=== PATIENT | female | born 1965 ===

== ENCOUNTER 2020-03-16 14:43 | Emergency (ER) | payer MEDICAID, SELFPAY ==
--- NOTE | 2020-03-16 14:53 | CT_ITS ---
EXAMINATION: CT HEAD WITHOUT CONTRAST CLINICAL INFORMATION: Headache status-post fall. COMPARISON: CT brain dated 03/19/2019. TECHNIQUE: Contiguous axial imaging was performed from the skull base to vertex without intravenous administration of contrast. Multiplanar reformatted images are submitted. This CT examination was performed using dose optimization techniques as appropriate, variously including the following: *Automated exposure control *Adjustment of mA and/or kV according to patient size (this includes techniques or standardized protocols for targeted exams where dose is matched to indication/reason for exam; i.e. extremities or head) *Use of iterative reconstruction technique DLP: 1024 mGy-cm FINDINGS: There is no evidence of acute intracranial hemorrhage or territorial infarction. No abnormal mass effect or midline shift is seen. Mill[place] to white matter differentiation is well preserved. No extra-axial fluid collections are identified. The ventricles are normal in size. There is no abnormal attenuation within the brain parenchyma. There are atherosclerotic calcifications of the skull base vasculature. The osseous structures and soft tissues are normal. The mastoid air cells and visualized portions of the paranasal sinuses are well aerated. CT/CT head/brain wo con IMPRESSION: No acute intracranial pathology.
--- NOTE | 2020-03-16 14:53 | CT_ITS ---
EXAMINATION: CT CERVICAL SPINE WITHOUT CONTRAST CLINICAL INFORMATION: Status post fall. COMPARISON: None TECHNIQUE: Axial 3 mm thin and reformatted 2 mm thin sagittal and coronal images of cervical spine were obtained without contrast. This CT examination was performed using dose optimization techniques as appropriate, variously including the following: *Automated exposure control *Adjustment of mA and/or kV according to patient size (this includes techniques or standardized protocols for targeted exams where dose is matched to indication/reason for exam; i.e. extremities or head) *Use of iterative reconstruction technique DLP: 1024 mGy-cm FINDINGS: There is normal cervical lordosis. The vertebral heights, alignment and disc heights are normal. There is no visible acute fracture, dislocation or lytic process. The craniovertebral junction and the C1-C2 alignment is normal. There is no visible acute fracture, dislocation or subluxation seen. The prevertebral, paravertebral and parapharyngeal soft tissues are normal. There is widely patent. The left thyroid lobe is enlarged and extends inferiorly. The submandibular and parotid glands are not well visualized. Visualized intracranial brain parenchyma is unremarkable. The lung apices are clear. CT/CT cervical spine wo con IMPRESSION: No acute fracture, dislocation or subluxation seen.
--- NOTE | 2020-03-16 14:53 | XR_ITS ---
EXAMINATION: CHEST AND LEFT RIB X-RAYS CLINICAL INFORMATION: Fall. Pain. COMPARISON: Previous chest x-ray February 2019 TECHNIQUE: One view of the chest 5 views of the left ribs FINDINGS: Chest: The cardiac and mediastinal contours are normal. The lungs are clear. There is no pleural effusion or pneumothorax. There are degenerative changes of the spine. Left RIBS: No rib fracture is seen. There is a soft tissue calcification adjacent to the greater tuberosity. XR/XR ribs LT min 3V w CXR1V IMPRESSION: No evidence for acute disease in the chest. No rib fracture seen.
--- NOTE | 2020-03-16 14:53 | XR_ITS ---
EXAMINATION: CHEST AND LEFT RIB X-RAYS CLINICAL INFORMATION: Fall. Pain. COMPARISON: Previous chest x-ray February 2019 TECHNIQUE: One view of the chest 5 views of the left ribs FINDINGS: Chest: The cardiac and mediastinal contours are normal. The lungs are clear. There is no pleural effusion or pneumothorax. There are degenerative changes of the spine. Left RIBS: No rib fracture is seen. There is a soft tissue calcification adjacent to the greater tuberosity. XR/XR chest 1V IMPRESSION: No evidence for acute disease in the chest. No rib fracture seen.
--- NOTE | 2020-03-16 14:54 | ECG_ITS ---
Test Reason : CHEST PAIN Blood Pressure : / mmHG Vent. Rate : 082 BPM Atrial Rate : 082 BPM P-R Int : 230 ms QRS Dur : 080 ms QT Int : 386 ms P-R-T Axes : 058 007 062 degrees QTc Int : 450 ms Sinus rhythm with 1st degree A-V block Nonspecific ST abnormality Borderline ECG When compared with ECG of 29-AUG-2019 18:27, Nonspecific T wave abnormality no longer evident in Inferior leads Referred By: Miller Silva Electronically Signed By:VIOLETA MUÑIZ MD
[2020-03-16 14:58] VITALS: BP 142/68; PULSE 76; RESP 16; TEMP 35.3; BMI 26.1
[2020-03-16 15:15] VITALS: BP 146/78; PULSE 75; RESP 16; TEMP 36.9; O2SAT 99
--- NOTE | 2020-03-16 15:19 | ED.CHESTPAIN ---
HPI - Chest Pain General Chief Complaint: Chest Pain Stated Complaint: FALL,DIZZY,CP Time Seen by Provider: 03/16/20 16:25 Source: patient Mode of arrival: ambulatory Limitations: no limitations History of Present Illness HPI narrative: patient presents to ED for dizziness and than falling to the the ground on her left side and than having chest pain. Patient denies loss of consciousness. Patient main complaint is left lateral rib chest pain. Patient denies any headache or dizziness. MD complaint: chest pain Related Data Previous Rx's Medication Instructions Recorded naproxen 500 mg PO BID PRN #20 tab 03/16/20 Allergies Allergy/AdvReac Type Severity Reaction Status Date / Time morphine [MORPHINE] Allergy Intermediate ITCHY, RASH Unverified 01/29/20 15:53 Review of Systems Review of Systems: Yes all other systems are reviewed and are negative Constitutional: Constitutional: Reports as per HPI and Reports no additional constitutional complaints Eyes: Eyes: Reports as per HPI and Reports no additional eye complaints ENT: Reports system reviewed and no additional complaints, except as documented and Reports as per HPI Cardiovascular: Cardiovascular: Reports as per HPI, Reports no additional cardiovascular complaints and Reports chest pain Respiratory: Respiratory: Reports as per HPI and Reports no additional respiratory complaints Gastrointestinal: Gastrointestinal: Reports as per HPI and Reports no additional gastrointestinal complaints Musculoskeletal: Musculoskeletal: Reports no additional musculoskeletal complaints and Reports as per HPI Neurologic: Reports system reviewed and no additional complaints, except as documented and Reports as per HPI Psychiatric: Psychiatric: Reports no additional psychiatric complaints and Reports as per HPI PMF Past Medical History Medical History (Updated 03/16/20 @ 21:39 by JONNA Walker) Asthma Depression Diabetes mellitus type 1 Hypertension Myocardial infarction Surgical History (Updated 03/16/20 @ 15:07 by Delon Gonzalez) Hx laparoscopic cholecystectomy Social History Social History Advance Directives: No Advance Directives Information Provided: No Physical Exam Vital Signs: Vital Signs: Vital Signs Temp Pulse Resp BP Pulse Ox 03/16/20 20:00 97.5 F 83 16 169/94 H 97 03/16/20 16:00 97.6 F 82 19 177/90 H 97 03/16/20 15:15 98.4 F 75 16 146/78 H 99 03/16/20 14:58 95.5 F L 76 16 142/68 H Body Mass Index 26.1 Const: General: cooperative, healthy appearing, comfortable, no acute distress, well developed, alert and awake Orientation/consciousness: patient oriented x3 HENMT: Head: Yes normal to inspection, Yes No palpable skull fracture present, Yes normocephalic, Yes atraumatic, No abrasion, No Acrocyanosis present, No Hernandez's sign, No contusion, No cranial bruits, No hematoma, No laceration, No occipital foramen tenderness, No palpable skull fracture, No raccoon eyes, No scalp lesion, No scalp tenderness and No Temporal artery tenderness present Eyes: General: appearance normal, both eyes and all related structures Visual Messina: normal visual messina by confrontation Neck: Neck: Yes normal visual inspection, Yes full ROM, Yes no lymphadenopathy, Yes no meningeal signs, No positive Brudzinski's sign, No positive Kernig's sign and No tender Chest: Chest palpation & inspection: normal inspection of the chest and localized rib tenderness with anteroposterior compression ( Left lateral rib pain) Resp: Effort & Inspection: normal respiratory effort and able to speak in complete sentences Cardio: Jugular venous distension: no JVD Heart sounds: S1 normal heart sound present and S2 normal heart sound present GI: Inspection: Yes normal to inspection and No abdominal wall ecchymosis Palpation (GI): Soft to palpation, not firm, nontender, no guarding and not rigid : General: No CVA tenderness and Yes no CVA tenderness Back/Spine/Pelvis: Back: no CVA tenderness, No CVA tenderness and back tenderness (lumbar back tenderness) Skin: General skin exam: no rashes or lesions noted Neuro: General: patient oriented x3, gait normal, no meningeal signs and CN's II-XI intact bilaterally Cranial nerves: Yes CN's II-XII intact bilaterally Course Course Course Narrative: patient will have head CT, C-spine, chest x-ray to rule out any traumatic Injury. Patient have EKG and troponin to rule out any [place] due to history of having a heart attack. Patient also states she felt dizzy and then fell. Reevaluation(s) Reevaluation #1: patient initial troponin came back positive. D-dimer was positive. Patient still complaining of left lateral rib pain on palpation. Chest x-ray negative for any fracture. rib x-ray negative for any fractures. EKG is normal. Patient will be sent for chest CT to rule out PE. Patient also have 2nd troponin. Head CT, C-spine also came back normal. Time: 16:22 Reevaluation #2: lumbar x-ray negative for any fractures. Chest CT are negative for PE. Awaiting for 2nd troponin result. Time: 21:00 Reevaluation #3: 2nd troponin came back less than initial value. as per high sensitivity troponin algorhythm with medical center this rules out myocardial infarction. Patient presents now walking around the ED with walker which is her baseline and feels better. Patient will be discharged. patient given kaxyleate for mild hyperkalemia. kidney function is normal Time: 21:37 MDM - Chest Pain MDM Narrative Medical decision making narrative: chest wall contusion. Fall Lab Data Result diagrams: 03/16/20 16:22 03/16/20 16:22 Labs: Lab Results 03/16/20 03/16/20 03/16/20 Range/Units 16:22 16:22 16:22 WBC 9.8 (4.8-10.8) X10*3/uL RBC 4.79 (4.20-5.50) X10*6/uL Hgb 13.0 (12.0-16.0) g/dl Hct 40.2 (37-47) % MCV 83.9 (80-98) fL MCH 27.1 (27.0-33.0) pg MCHC 32.3 (31.0-35.0) g/dl RDW 12.2 (11.0-16.0) % Plt Count 311 (160-400) X10*3/uL MPV 10.7 (9.4-12.3) fL Immature Gran % (Auto) 0.4 (0.0-0.4) % Neut % (Auto) 72.5 (45-73) % Lymph % (Auto) 21.5 (20-40) % [place] % (Auto) 4.2 (2-11) % Eos % (Auto) 1.1 (0-4) % Baso % (Auto) 0.3 (0-2) % Lymph # (Auto) 2.1 (1.2-4.9) X10*3/uL [place] # (Auto) 0.4 (0.1-1.2) X10*3/uL Eos # (Auto) 0.1 (0.0-0.4) X10*3/uL Baso # (Auto) 0.0 (0.0-0.2) X10*3/uL Abs Immat Gran (auto) 0.04 H (0.00-0.03) X10*3/uL Absolute Neuts (auto) 7.1 (2.0-8.3) X10*3/uL Absolute Nucleated RBC 0.000 (0.0-0.012) X10*3/uL Nucleated RBC % (auto) 0.0 (0.0-0.2) /100WBC PT 12.9 (10.8-13.0) SEC INR 1.1 (0.9-1.1) APTT 25.8 (24.1-38.0) SEC D-Dimer 808 NG/ML Sodium (135-145) mmol/L Potassium (3.3-5.1) mmol/l Chloride (96-108) mmol/L Carbon Dioxide (22-29) mmol/L Anion Gap (12-20) BUN (9-16) mg/dL Creatinine (0.5-1.4) mg/dL Estim Creat Clear Calc Estimated GFR Random Glucose (60-115) mg/dL Calcium (8.4-10.2) mg/dL Total Bilirubin (0.0-1.0) mg/dL AST (5-31) U/L ALT (0-31) U/L Alkaline Phosphatase (39-117) U/L Troponin I High Sens 128.7 H (<3.5-17.0) ng/L Total Protein (6.5-8.0) g/dL Albumin (3.5-5.0) g/dL 03/16/20 03/16/20 Range/Units 16:22 20:34 WBC (4.8-10.8) X10*3/uL RBC (4.20-5.50) X10*6/uL Hgb (12.0-16.0) g/dl Hct (37-47) % MCV (80-98) fL MCH (27.0-33.0) pg MCHC (31.0-35.0) g/dl RDW (11.0-16.0) % Plt Count (160-400) X10*3/uL MPV (9.4-12.3) fL Immature Gran % (Auto) (0.0-0.4) % Neut % (Auto) (45-73) % Lymph % (Auto) (20-40) % [place] % (Auto) (2-11) % Eos % (Auto) (0-4) % Baso % (Auto) (0-2) % Lymph # (Auto) (1.2-4.9) X10*3/uL [place] # (Auto) (0.1-1.2) X10*3/uL Eos # (Auto) (0.0-0.4) X10*3/uL Baso # (Auto) (0.0-0.2) X10*3/uL Abs Immat Gran (auto) (0.00-0.03) X10*3/uL Absolute Neuts (auto) (2.0-8.3) X10*3/uL Absolute Nucleated RBC (0.0-0.012) X10*3/uL Nucleated RBC % (auto) (0.0-0.2) /100WBC PT (10.8-13.0) SEC INR (0.9-1.1) APTT (24.1-38.0) SEC D-Dimer NG/ML Sodium 135 (135-145) mmol/L Potassium 5.4 H (3.3-5.1) mmol/l Chloride 99 (96-108) mmol/L Carbon Dioxide 27 (22-29) mmol/L Anion Gap 14 (12-20) BUN 10 (9-16) mg/dL Creatinine 0.83 (0.5-1.4) mg/dL Estim Creat Clear Calc 74.7 Estimated GFR > 60 Random Glucose 351 H* (60-115) mg/dL Calcium 9.5 (8.4-10.2) mg/dL Total Bilirubin 1.4 H (0.0-1.0) mg/dL AST 15 (5-31) U/L ALT 19 (0-31) U/L Alkaline Phosphatase 87 (39-117) U/L Troponin I High Sens 111.5 H (<3.5-17.0) ng/L Total Protein 7.2 (6.5-8.0) g/dL Albumin 4.0 (3.5-5.0) g/dL ECG Data ECG #1: Interpretation: sinus rhythm with first-degree AV block. Ventricular rate 82. NH interval 230. QRS 80. negative STEMI Discharge Plan Discharge Clinical Impression: Chest wall contusion Patient Disposition: Home, Self-Care Instructions: Chest Pain (ED), Contusion in Adults (ED) Additional Instructions: return to the ED for any chest pain, shortness of breath, vomiting blood, coughing up blood, rectal bleeding, dysuria, hematuria, flank pain, or any other concerning symptoms. Prescriptions: New naproxen 500 mg tablet 500 mg PO BID PRN (Reason: pain) Qty: 20 RF: 0 Referrals: Dallas Butler MD [Primary Care Provider] - 2 days (Chest wall contusion after fall. Normal EKG. Troponins were negative. Chest CTA negative for PE. ) Print Language: [place] Leonean
[2020-03-16 16:00] VITALS: BP 177/90; PULSE 82; RESP 19; TEMP 36.4; O2SAT 97
[2020-03-16 16:41] LABS: Basophils Percent Auto 0.3 % (0-2); Eosinophils Absolute Auto 0.1 X10*3/uL (0.0-0.4); Eosinophils Percent Auto 1.1 % (0-4); Hematocrit 40.2 % (37-47); Imm Gran Abs Auto 0.04 X10*3/uL (0.00-0.03); Imm Gran Pct Auto 0.4 % (0.0-0.4); Lymphocytes Absolute Auto 2.1 X10*3/uL (1.2-4.9); Lymphocytes Percent Auto 21.5 % (20-40); MANUAL DIFF FLAG NO; Mean Corpuscular HGB Conc 32.3 g/dl (31.0-35.0); Mean Corpuscular Hemoglobin 27.1 pg (27.0-33.0); Mean Corpuscular Volume 83.9 fL (80-98); Mean Platelet Volume 10.7 fL (9.4-12.3); Monocytes Absolute Auto 0.4 X10*3/uL (0.1-1.2); Monocytes Percent Auto 4.2 % (2-11); Neutrophils Absolute Auto 7.1 X10*3/uL (2.0-8.3); Neutrophils Percent Auto 72.5 % (45-73); Platelet Count 311 X10*3/uL (160-400); Red Blood Count 4.79 X10*6/uL (4.20-5.50); Red Cell Distribution Width 12.2 % (11.0-16.0); White Blood Count 9.8 X10*3/uL (4.8-10.8)
[2020-03-16 16:50] LABS: INTERNATIONAL NORM RATIO 1.1 (0.9-1.1); Prothrombin Time 12.9 SEC (10.8-13.0)
[2020-03-16 16:53] LABS: D Dimer 808 NG/ML; Partial Thromboplastin Time 25.8 SEC (24.1-38.0)
[2020-03-16 17:29] LABS: Alanine Aminotransferase 19 U/L (0-31); Alkaline Phosphatase 87 U/L (39-117); Anion Gap 14 (12-20); Aspartate Amino Transferase 15 U/L (5-31); Bilirubin Total 1.4 mg/dL (0.0-1.0); Blood Urea Nitrogen 10 mg/dL (9-16); Calcium 9.5 mg/dL (8.4-10.2); Carbon Dioxide 27 mmol/L (22-29); Chloride 99 mmol/L (96-108); Creatinine Clr Calc Pharmacy 74.7; Estimated Glomerular Filt Rate > 60; Glucose Random 351 mg/dL (60-115); Potassium 5.4 mmol/l (3.3-5.1); Sodium 135 mmol/L (135-145); Total Protein 7.2 g/dL (6.5-8.0)
[2020-03-16 17:30] LABS: Troponin-I High Sensitivity 128.7 ng/L (<3.5-17.0)
--- NOTE | 2020-03-16 17:38 | CT_ITS ---
EXAMINATION: CT ANGIOGRAM OF THE CHEST WITH AND WITHOUT CONTRAST (CT PULMONARY ANGIOGRAM FOR PE) CLINICAL INFORMATION: Reason for Exam dizzy, chest pain, than fall. PE? COMPARISON: Chest x-ray 03/16/2020 and CTA chest 03/06/2019 TECHNIQUE: Prior to contrast administration, noncontrast localization images were obtained. Subsequently, multidetector volumetric imaging was performed from the thoracic inlet to below the diaphragms following the administration of 65 mLOmnipaque 350 intravenous contrast. No contrast reaction reported Sagittal, coronal, and MIP oblique sagittal reformatted images were obtained on the CT workstation, uploaded to PACS, and reviewed. This CT examination was performed using dose optimization techniques as appropriate, variously including the following: *Automated exposure control *Adjustment of mA and/or kV according to patient size (this includes techniques or standardized protocols for targeted exams where dose is matched to indication/reason for exam; i.e. extremities or head) *Use of iterative reconstruction technique Total exam dose-length product 397 mGy-cm FINDINGS: The heart is normal in size. There is no pericardial effusion. No pulmonary arterial filling defect to suggest pulmonary embolus. Nonaneurysmal thoracic aorta. No gross mediastinal lymphadenopathy. Central airways are patent. Lungs are adequately aerated. There is mild dependent atelectasis bilaterally. Subtle diffuse groundglass opacities are nonspecific but most suggestive of atelectasis/incomplete inspiration. There is no lobar consolidation. No pleural effusion or pneumothorax. No suspicious pulmonary nodules visualized. Visualized portion of the upper abdomen again demonstrate dilatation of the extrahepatic common bile duct. Mild diffuse degenerative changes of the spine. CT/CT angio chest PE protocol IMPRESSION: -No pulmonary arterial filling defects to suggest pulmonary embolus. -No lobar consolidation, pleural effusion or pneumothorax.
--- NOTE | 2020-03-16 18:50 | XR_ITS ---
EXAMINATION: PELVIS AND LUMBAR SPINE CLINICAL INFORMATION: Back pain after fall COMPARISON: Lumbar spine 09/26/2018 TECHNIQUE: Single view pelvis, 3 views lumbosacral spine FINDINGS: Lumbar spine shows no evidence of an acute fracture. Both renal collecting systems and both ureters are opacified and appear normal. Surgical clips are present in the gallbladder fossa. No pelvic fracture is seen. Degenerative changes are present in both hips. Contrast is in the bladder and in nondilated right ureter is seen. XR/XR pelvis 1-2V IMPRESSION: No evidence of traumatic injury.
[2020-03-16] MEDS: Ketorolac Tromethamine 30 MG/ML VIAL IVPUSH (18:52)
[2020-03-16] MEDS: iohexoL 350 MG/ML 100 ML INFUS..BTL IV (19:59)
[2020-03-16 20:00] VITALS: BP 169/94; PULSE 83; RESP 16; TEMP 36.4; O2SAT 97
--- NOTE | 2020-03-16 20:06 | XR_ITS ---
EXAMINATION: PELVIS AND LUMBAR SPINE CLINICAL INFORMATION: Back pain after fall COMPARISON: Lumbar spine 09/26/2018 TECHNIQUE: Single view pelvis, 3 views lumbosacral spine FINDINGS: Lumbar spine shows no evidence of an acute fracture. Both renal collecting systems and both ureters are opacified and appear normal. Surgical clips are present in the gallbladder fossa. No pelvic fracture is seen. Degenerative changes are present in both hips. Contrast is in the bladder and in nondilated right ureter is seen. XR/XR lumbar spine 2-3V IMPRESSION: No evidence of traumatic injury.
[2020-03-16 21:14] LABS: Troponin-I High Sensitivity 111.5 ng/L (<3.5-17.0)
[2020-03-16 22:00] VITALS: BP 171/92; PULSE 83; RESP 16; TEMP 36.4; O2SAT 95
[2020-03-16] MEDS: Sodium Polystyrene Sulfon/Sorb 15 GM/60 ML ORAL.SUSP 30 GM PO (22:11)
== END 2020-03-16 22:42 | disposition home or self-care (01) ==
PROVIDERS: Physician Assistant; Emergency Provider Internal Medicine; PCP Internal Medicine
DX: S20.213A Contusion of bilateral front wall of thorax, initial encounter (principal); R07.9 Chest pain, unspecified; M54.2 Cervicalgia; R42 Dizziness and giddiness; I10 Essential (primary) hypertension; G44.309 Post-traumatic headache, unspecified, not intractable; W01.0XXA Fall on same level from slipping, tripping and stumbling without subsequent striking against object, initial encounter; Y93.9 Activity, unspecified; Y92.9 Unspecified place or not applicable; Y99.9 Unspecified external cause status; Z79.899 Other long term (current) drug therapy
CPT/HCPCS: 36415; 70450; 71045; 71101; 71275; 72100; 72125; 72170; 80053; 84484; 85025; 85379; 85610; 85730; 93005; 96374; 99283; 99284; J1885; Q9967

== ENCOUNTER 2020-05-17 09:48 | Outpatient (REF) | payer MEDICAID, SELFPAY | END 2020-05-17 09:49 | disposition home or self-care (01) | LOC: HO.LAB 09:48 | PROVIDERS: Visit Provider Internal Medicine | DX: Z20.822 Contact with and (suspected) exposure to COVID-19 (principal) | CPT/HCPCS: 36415; C9803; U0003 ==

== ENCOUNTER 2020-07-06 14:00 | Outpatient (RCR) | payer MEDICAID, SELFPAY ==
[2020-06-07 15:09] VITALS: BP 139/65; PULSE 78
== END 2020-08-12 15:02 | disposition other institution (70) ==
LOC: HO.PT 14:00
PROVIDERS: PCP Internal Medicine; Visit Provider Internal Medicine
DX: M25.511 Pain in right shoulder (principal)
CPT/HCPCS: 97110; 97112; 97140; 97162; 97530

== ENCOUNTER 2020-10-12 12:36 | Emergency (ER) | payer MEDICAID, SELFPAY ==
--- NOTE | ~2020-10-12 | CT_ITS ---
EXAMINATION: CT ABDOMEN AND PELVIS WITHOUT CONTRAST CLINICAL INFORMATION: Left-sided flank pain and abdominal pain status post fall COMPARISON: CT abdomen pelvis 07/03/2018 TECHNIQUE: Multidetector volumetric imaging was performed from the superior aspect of the liver through the pubic symphysis. Sagittal and coronal reformatted images were obtained on the technologist's workstation. This CT examination was performed using dose optimization techniques as appropriate, variously including the following: *Automated exposure control *Adjustment of mA and/or kV according to patient size (this includes techniques or standardized protocols for targeted exams where dose is matched to indication/reason for exam; i.e. extremities or head) *Use of iterative reconstruction technique DLP: 5:15 mGy-cm FINDINGS: LUNG BASES: The visualized lung bases are unremarkable. LIVER, GALLBLADDER, AND BILIARY TREE: The liver is normal in size, shape, and attenuation. No focal hepatic lesion or intrahepatic biliary ductal dilatation is present. The CBD is again noted to be dilated measuring about 1.5 cm. Status post cholecystectomy. PANCREAS: Unremarkable. SPLEEN: Unremarkable. ADRENAL GLANDS: Unremarkable. KIDNEYS AND URETERS: The kidneys are normal in size, shape, and attenuation. No hydronephrosis, hydroureter, or calculi seen. No perinephric stranding. BLADDER: Unremarkable. GASTROINTESTINAL TRACT: The small and large bowel are unremarkable. The appendix is unremarkable. ABDOMINAL WALL: No significant hernia is appreciated. LYMPH NODES: Normal. VASCULAR: Unremarkable. PELVIC VISCERA: Unremarkable. OSSEOUS STRUCTURES: Unremarkable. CT/CT abdomen pelvis wo con IMPRESSION: A cause for the patient's acute left-sided flank pain has not been found and no evidence of acute traumatic injury status post fall is seen.
--- NOTE | ~2020-10-12 | XR_ITS ---
EXAMINATION: XR KNEE, LEFT CLINICAL INFORMATION: Status post fall with left knee pain COMPARISON: None TECHNIQUE: Four views of the left knee. FINDINGS: Bones and soft tissues are normal. No fracture or joint effusion. Alignment is anatomic. Joint spaces are well maintained. No abnormal soft tissue calcification. XR/XR knee LT 4V IMPRESSION: Unremarkable left knee.
--- NOTE | ~2020-10-12 | XR_ITS ---
EXAMINATION: XR RIBS, LEFT CLINICAL INFORMATION: Pain. Fall. COMPARISON: Previous chest and left rib x-rays and chest CTA March 2020 TECHNIQUE: 3 views of the left ribs and one view of the chest were obtained. FINDINGS: The cardiac and mediastinal contours are stable. The lungs are clear. There is no pleural effusion or pneumothorax. There are old left posterior fifth sixth and seventh rib fractures. No acute rib fracture is seen. There are degenerative changes of the spine. XR/XR ribs LT min 3V w CXR1V IMPRESSION: No evidence for acute disease in the chest. No acute rib fracture seen.
[2020-10-12 13:28] VITALS: BP 154/48; PULSE 76; RESP 16; TEMP 36.7; O2SAT 96; BMI 28.5
--- NOTE | 2020-10-12 14:29 | ECG_ITS ---
Test Reason : FALL Blood Pressure : / mmHG Vent. Rate : 068 BPM Atrial Rate : 068 BPM P-R Int : 246 ms QRS Dur : 078 ms QT Int : 400 ms P-R-T Axes : 064 010 048 degrees QTc Int : 425 ms Sinus rhythm with 1st degree A-V block Otherwise normal ECG When compared with ECG of 16-MAR-2020 15:46, No significant change was found Referred By: Cristina Cason Electronically Signed By:Fabio Andrade
--- NOTE | 2020-10-12 14:56 | ED.FALL ---
HPI - Fall General Chief Complaint: Fall Stated Complaint: fell Time Seen by Provider: 10/12/20 14:04 Source: patient and family Mode of arrival: wheelchair Limitations: no limitations History of Present Illness HPI Narrative: 55 y/o female presents to the ED with dizziness and 2 falls today. She states the 1st fall her knees gave out and the 2nd fall was preceded by dizziness and tunnel vision. She hit her forehead on the floor and hit her left ribs and left side as well. She reports pain in her left ribs and abdomen. She has mild residual dizziness. She has a similar presentation in Mar 2020 with fall and dizziness. She had a negative CTA at that time. MD complaint: fall Onset (ago): hour(s) Fall from: standing Fall witnessed: yes, by family Place fall occurred: home Loss of consciousness: none Related Data Previous Rx's Medication Instructions Recorded naproxen 500 mg PO BID PRN #20 tab 03/16/20 Allergies Allergy/AdvReac Type Severity Reaction Status Date / Time morphine [MORPHINE] Allergy Intermediate ITCHY, RASH Verified 10/12/20 13:28 [facility], [facility] Past Medical History Medical History (Updated 10/12/20 @ 18:01 by JONNA Gordon) Asthma Depression Diabetes mellitus type 1 Hypertension Myocardial infarction Surgical History (Updated 03/16/20 @ 15:07 by Delon Gonzalez) Hx laparoscopic cholecystectomy Social History Social History Advance Directives: No Advance Directives Information Provided: Yes Physical Exam Vital Signs: Vital Signs: Last Vital Signs Temp 98.0 F 10/12/20 13:28 Pulse 72 10/12/20 18:34 Resp 15 10/12/20 18:34 BP 155/72 H 10/12/20 15:54 Pulse Ox 96 10/12/20 13:28 Body Mass Index 28.5 Course Course Course Narrative: 55 y/o female presenting with left flank pain and abdominal pain s/p fall x2 today. History of several falls in the past, is supposed to be walking with a walker but it is broken. Doubt intraabdominal injury however given tenderness on exam will get CT scan. Lab workup ordered. Orthostatics are negative. Reevaluation(s) Reevaluation #1: XR negative for rib fractures or PTX. Troponin 40 (was 120 last visit). No chest pain or SOB. Will repeat in 3 hours. Patient is sleeping comfortably between care. Reevaluation #2: Repeat troponin trended down. Comfortable with d/c home. We discussed fall prevention methods and safety at home, sig other is comfortable taking her home. She was encouraged to use her walker and f/u with PCP. Stable for d/c. MDM - Fall Lab Data Result diagrams: 10/12/20 15:04 10/12/20 15:49 Labs: Lab Results 10/12/20 10/12/20 10/12/20 Range/Units 15:04 15:05 15:05 WBC 7.2 (4.8-10.8) X10*3/uL RBC 4.76 (4.20-5.50) X10*6/uL Hgb 12.9 (12.0-16.0) g/dl Hct 39.2 (37-47) % MCV 82.4 (80-98) fL MCH 27.1 (27.0-33.0) pg MCHC 32.9 (31.0-35.0) g/dl RDW 12.4 (11.0-16.0) % Plt Count 329 (160-400) X10*3/uL MPV 10.4 (9.4-12.3) fL Immature Gran % (Auto) 0.1 (0.0-0.4) % Neut % (Auto) 52.5 (45-73) % Lymph % (Auto) 39.3 (20-40) % [place] % (Auto) 5.8 (2-11) % Eos % (Auto) 1.9 (0-4) % Baso % (Auto) 0.4 (0-2) % Lymph # (Auto) 2.8 (1.2-4.9) X10*3/uL [place] # (Auto) 0.4 (0.1-1.2) X10*3/uL Eos # (Auto) 0.1 (0.0-0.4) X10*3/uL Baso # (Auto) 0.0 (0.0-0.2) X10*3/uL Abs Immat Gran (auto) 0.01 (0.00-0.03) X10*3/uL Absolute Neuts (auto) 3.8 (2.0-8.3) X10*3/uL Absolute Nucleated RBC 0.000 (0.0-0.012) X10*3/uL Nucleated RBC % (auto) 0.0 (0.0-0.2) /100WBC Hold Blue Top SEE NOTE Sodium (135-145) mmol/L Potassium (3.3-5.1) mmol/L Chloride (96-108) mmol/L Carbon Dioxide (22-29) mmol/L Anion Gap (12-20) BUN (9-16) mg/dL Creatinine (0.5-1.4) mg/dL Estim Creat Clear Calc Estimated GFR Random Glucose (60-115) mg/dL Calcium (8.4-10.2) mg/dL Magnesium (1.6-2.6) mg/dL Total Bilirubin (0.0-1.0) mg/dL Direct Bilirubin (0.0-0.5) mg/dL AST (5-31) U/L ALT (0-31) U/L Alkaline Phosphatase (39-117) U/L Troponin I High Sens 40.5 H* (<3.5-17.0) ng/L Total Protein (6.5-8.0) g/dL Albumin (3.5-5.0) g/dL Urine Color Urine Appearance Urine pH (5.0-8.0) Ur Specific [place] (1.005-1.025) Urine Protein (NEG-TRACE) MG/DL Urine Glucose (UA) (NEG) MG/DL Urine Ketones (NEG) MG/DL Urine Blood (NEG) Urine Nitrite (NEG) Ur Leukocyte Esterase (NEG) Urine RBC (0) /HPF Urine WBC (0-4) /HPF Ur Squamous Epith Cells /LPF Urine Bacteria /LPF 10/12/20 10/12/20 10/12/20 Range/Units 15:06 15:49 18:12 WBC (4.8-10.8) X10*3/uL RBC (4.20-5.50) X10*6/uL Hgb (12.0-16.0) g/dl Hct (37-47) % MCV (80-98) fL MCH (27.0-33.0) pg MCHC (31.0-35.0) g/dl RDW (11.0-16.0) % Plt Count (160-400) X10*3/uL MPV (9.4-12.3) fL Immature Gran % (Auto) (0.0-0.4) % Neut % (Auto) (45-73) % Lymph % (Auto) (20-40) % [place] % (Auto) (2-11) % Eos % (Auto) (0-4) % Baso % (Auto) (0-2) % Lymph # (Auto) (1.2-4.9) X10*3/uL [place] # (Auto) (0.1-1.2) X10*3/uL Eos # (Auto) (0.0-0.4) X10*3/uL Baso # (Auto) (0.0-0.2) X10*3/uL Abs Immat Gran (auto) (0.00-0.03) X10*3/uL Absolute Neuts (auto) (2.0-8.3) X10*3/uL Absolute Nucleated RBC (0.0-0.012) X10*3/uL Nucleated RBC % (auto) (0.0-0.2) /100WBC Hold Blue Top Sodium 134 L (135-145) mmol/L Potassium 4.7 (3.3-5.1) mmol/L Chloride 100 (96-108) mmol/L Carbon Dioxide 23 (22-29) mmol/L Anion Gap 16 (12-20) BUN 11 (9-16) mg/dL Creatinine 0.68 (0.5-1.4) mg/dL Estim Creat Clear Calc 87.1 Estimated GFR > 60 Random Glucose 250 H (60-115) mg/dL Calcium 9.9 (8.4-10.2) mg/dL Magnesium 1.7 (1.6-2.6) mg/dL Total Bilirubin 1.3 H (0.0-1.0) mg/dL Direct Bilirubin 0.4 (0.0-0.5) mg/dL AST 13 (5-31) U/L ALT 18 (0-31) U/L Alkaline Phosphatase 85 (39-117) U/L Troponin I High Sens 39.8 H* (<3.5-17.0) ng/L Total Protein 7.1 (6.5-8.0) g/dL Albumin 4.0 (3.5-5.0) g/dL Urine Color YELLOW Urine Appearance CLEAR Urine pH 5.5 (5.0-8.0) Ur Specific [place] <= 1.005 (1.005-1.025) Urine Protein NEG (NEG-TRACE) MG/DL Urine Glucose (UA) >=1000 H (NEG) MG/DL Urine Ketones NEG (NEG) MG/DL Urine Blood NEG (NEG) Urine Nitrite NEG (NEG) Ur Leukocyte Esterase NEG (NEG) Urine RBC 0 (0) /HPF Urine WBC 0 (0-4) /HPF Ur Squamous Epith Cells TRACE /LPF Urine Bacteria NONE /LPF Critical Care Time Critical Care Time Critical Care Time: No Discharge Plan Discharge Clinical Impression: Fall Qualifiers: Encounter type: initial encounter Qualified Code(s): W19.XXXA - Unspecified fall, initial encounter Contusion Qualifiers: Encounter type: initial encounter Contusion area: abdominal wall Qualified Code(s): S30.1XXA - Contusion of abdominal wall, initial encounter Patient Disposition: Home, Self-Care Instructions: Fall Prevention (ED) Additional Instructions: Your lab work up and CT scan was normal today. Recommend Motrin and/or Tylenol as needed for pain. WALK WITH YOUR WALKER to help prevent falls. Follow up with your doctor next week. Prescriptions: No Action naproxen 500 mg tablet 500 mg PO BID PRN (Reason: pain) Qty: 20 RF: 0
[2020-10-12 15:11] VITALS: BP 147/67; PULSE 70
[2020-10-12 15:15] LABS: MANUAL DIFF FLAG NO
[2020-10-12 15:16] VITALS: BP 155/64; PULSE 73
[2020-10-12 15:16] LABS: Glucose Urine UA >=1000 MG/DL (NEG); Leukocyte Esterase Urine NEG (NEG); Nitrite Urine NEG (NEG); PH 5.5 (5.0-8.0); Specific Gravity - Urine <= 1.005 (1.005-1.025); Urine Blood NEG (NEG); Urine Ketones NEG (NEG); Urine Protein NEG (NEG-TRACE)
[2020-10-12 15:17] LABS: Basophils Percent Auto 0.4 % (0-2); Eosinophils Absolute Auto 0.1 X10*3/uL (0.0-0.4); Eosinophils Percent Auto 1.9 % (0-4); Hematocrit 39.2 % (37-47); Hemoglobin 12.9 g/dl (12.0-16.0); Imm Gran Abs Auto 0.01 X10*3/uL (0.00-0.03); Imm Gran Pct Auto 0.1 % (0.0-0.4); Lymphocytes Absolute Auto 2.8 X10*3/uL (1.2-4.9); Lymphocytes Percent Auto 39.3 % (20-40); Mean Corpuscular HGB Conc 32.9 g/dl (31.0-35.0); Mean Corpuscular Hemoglobin 27.1 pg (27.0-33.0); Mean Corpuscular Volume 82.4 fL (80-98); Mean Platelet Volume 10.4 fL (9.4-12.3); Monocytes Absolute Auto 0.4 X10*3/uL (0.1-1.2); Monocytes Percent Auto 5.8 % (2-11); Neutrophils Absolute Auto 3.8 X10*3/uL (2.0-8.3); Neutrophils Percent Auto 52.5 % (45-73); Platelet Count 329 X10*3/uL (160-400); Red Blood Count 4.76 X10*6/uL (4.20-5.50); Red Cell Distribution Width 12.4 % (11.0-16.0); White Blood Count 7.2 X10*3/uL (4.8-10.8)
[2020-10-12 15:17] LABS: Appearance Urine CLEAR; Color Urine YELLOW
[2020-10-12 15:18] VITALS: BP 141/75; PULSE 69
[2020-10-12 15:24] LABS: RBC Urine 0 /HPF (0); Squamous Epithelial Cell Urine TRACE /LPF; WBC Urine 0 /HPF (0-4)
[2020-10-12 15:54] VITALS: BP 155/72; PULSE 77; RESP 16
[2020-10-12 16:00] LABS: Troponin-I High Sensitivity 40.5 ng/L (<3.5-17.0)
[2020-10-12 16:47] LABS: Alanine Aminotransferase 18 U/L (0-31); Alkaline Phosphatase 85 U/L (39-117); Anion Gap 16 (12-20); Aspartate Amino Transferase 13 U/L (5-31); Bilirubin Direct 0.4 mg/dL (0.0-0.5); Bilirubin Total 1.3 mg/dL (0.0-1.0); Blood Urea Nitrogen 11 mg/dL (9-16); Calcium 9.9 mg/dL (8.4-10.2); Carbon Dioxide 23 mmol/L (22-29); Chloride 100 mmol/L (96-108); Creatinine Clr Calc Pharmacy 87.1; Estimated Glomerular Filt Rate > 60; Glucose Random 250 mg/dL (60-115); Magnesium 1.7 mg/dL (1.6-2.6); Potassium 4.7 mmol/L (3.3-5.1); Sodium 134 mmol/L (135-145); Total Protein 7.1 g/dL (6.5-8.0)
[2020-10-12 18:34] VITALS: PULSE 72; RESP 15
[2020-10-12] MEDS: Acetaminophen 325 MG TABLET 975 MG PO (18:45)
[2020-10-12] MEDS: Ketorolac Tromethamine 30 MG/ML VIAL IM (18:46)
[2020-10-12 18:56] LABS: Troponin-I High Sensitivity 39.8 ng/L (<3.5-17.0)
== END 2020-10-12 19:12 | disposition home or self-care (01) ==
PROVIDERS: Physician Assistant; Emergency Provider Emergency Medicine; PCP Internal Medicine
DX: S30.1XXA Contusion of abdominal wall, initial encounter (principal); M25.562 Pain in left knee; R10.9 Unspecified abdominal pain; R42 Dizziness and giddiness; W01.0XXA Fall on same level from slipping, tripping and stumbling without subsequent striking against object, initial encounter; Y93.9 Activity, unspecified; Y92.9 Unspecified place or not applicable; Y99.9 Unspecified external cause status; R07.81 Pleurodynia; Z79.899 Other long term (current) drug therapy
CPT/HCPCS: 36415; 71101; 73564; 74176; 80048; 80076; 81001; 83735; 84484; 85025; 93005; 96372; 99285; J1885

== ENCOUNTER 2020-11-18 13:26 | Outpatient (REF) | payer MEDICAID, SELFPAY ==
--- NOTE | ~2020-11-18 | US_ITS ---
EXAMINATION: US VENOUS ULTRASOUND WITH DOPPLER LOWER EXTREMITY, LEFT CLINICAL INFORMATION: Pain COMPARISON: Previous bilateral lower extremity venous ultrasound January 2018 TECHNIQUE: Ultrasound of the deep veins is performed from the hip to the calf with compression sonography and color and pulse Doppler assessment. Spectral analysis with color-flow imaging is performed. FINDINGS: There is normal venous compression and respiratory variation and augmented flow. The visualized common femoral vein, superficial femoral vein, profunda femoral vein, popliteal vein, and the trifurcation region shows no evidence of deep venous thrombosis. There is no significant popliteal fossa cyst. US/US venous duplex LE LT IMPRESSION: No DVT demonstrated in the left lower extremity.
== END 2020-11-18 13:27 | disposition home or self-care (01) ==
LOC: HO.HMGCX 13:26
PROVIDERS: PCP Internal Medicine; Visit Provider Emergency Medicine
DX: M79.662 Pain in left lower leg (principal); M79.89 Other specified soft tissue disorders
CPT/HCPCS: 93971

== ENCOUNTER 2020-11-24 13:11 | Outpatient (REF) | payer MEDICAID, SELFPAY ==
--- NOTE | ~2020-11-24 | XR_ITS ---
EXAMINATION: XR HIP, LEFT XR KNEE, LEFT XR TIBIA/FIBULA, LEFT XR ANKLE, LEFT XR FOOT, LEFT CLINICAL INFORMATION: Pain. COMPARISON: Left knee radiographs dated 10/12/2020. Pelvic radiograph dated 03/16/2020. Left ankle radiographs dated 09/16/2018. TECHNIQUE: AP and frog-leg lateral views of the left hip. AP, bilateral oblique, and lateral views of the left knee. AP and lateral views of the left tibia/fibula. AP, oblique, and lateral views of the left foot and left ankle. FINDINGS: Left Hip: No acute fracture or dislocation. Mild joint space narrowing with lateral acetabular marginal osteophytes, unchanged. Phleboliths within the pelvis. Stable ossification adjacent to the greater trochanter, which could indicate chronic tendinopathy. Left Knee: No acute fracture or dislocation. No joint space narrowing or marginal osteophytes. No osseous erosion. No abnormal soft tissue calcification. No significant joint effusion. Left Tibia/Fibula: No acute fracture or dislocation. No lytic or blastic osseous lesion. No abnormal soft tissue calcification. Left Ankle: No acute fracture or dislocation. The ankle mortise is maintained. No joint space narrowing or marginal osteophytes. No osseous erosion. No abnormal soft tissue calcification. Left Foot: No acute fracture or dislocation. Mild joint space narrowing with tiny marginal osteophytes at the 1st metatarsophalangeal joint. Tiny plantar calcaneal spur. XR/XR ankle LT 2V IMPRESSION: LEFT HIP: Mild osteophyte arthritis, unchanged. Ossification adjacent to the greater trochanter which is unchanged and could indicate chronic tendinopathy. LEFT KNEE: Unremarkable examination. LEFT TIBIA/FIBULA: Unremarkable examination. LEFT ANKLE: Unremarkable examination. LEFT FOOT: Mild degenerative arthritis at the 1st metatarsophalangeal joint. Tiny plantar calcaneal spur.
--- NOTE | ~2020-11-24 | XR_ITS ---
EXAMINATION: XR HIP, LEFT XR KNEE, LEFT XR TIBIA/FIBULA, LEFT XR ANKLE, LEFT XR FOOT, LEFT CLINICAL INFORMATION: Pain. COMPARISON: Left knee radiographs dated 10/12/2020. Pelvic radiograph dated 03/16/2020. Left ankle radiographs dated 09/16/2018. TECHNIQUE: AP and frog-leg lateral views of the left hip. AP, bilateral oblique, and lateral views of the left knee. AP and lateral views of the left tibia/fibula. AP, oblique, and lateral views of the left foot and left ankle. FINDINGS: Left Hip: No acute fracture or dislocation. Mild joint space narrowing with lateral acetabular marginal osteophytes, unchanged. Phleboliths within the pelvis. Stable ossification adjacent to the greater trochanter, which could indicate chronic tendinopathy. Left Knee: No acute fracture or dislocation. No joint space narrowing or marginal osteophytes. No osseous erosion. No abnormal soft tissue calcification. No significant joint effusion. Left Tibia/Fibula: No acute fracture or dislocation. No lytic or blastic osseous lesion. No abnormal soft tissue calcification. Left Ankle: No acute fracture or dislocation. The ankle mortise is maintained. No joint space narrowing or marginal osteophytes. No osseous erosion. No abnormal soft tissue calcification. Left Foot: No acute fracture or dislocation. Mild joint space narrowing with tiny marginal osteophytes at the 1st metatarsophalangeal joint. Tiny plantar calcaneal spur. XR/XR foot LT min 3V IMPRESSION: LEFT HIP: Mild osteophyte arthritis, unchanged. Ossification adjacent to the greater trochanter which is unchanged and could indicate chronic tendinopathy. LEFT KNEE: Unremarkable examination. LEFT TIBIA/FIBULA: Unremarkable examination. LEFT ANKLE: Unremarkable examination. LEFT FOOT: Mild degenerative arthritis at the 1st metatarsophalangeal joint. Tiny plantar calcaneal spur.
--- NOTE | ~2020-11-24 | XR_ITS ---
EXAMINATION: XR HIP, LEFT XR KNEE, LEFT XR TIBIA/FIBULA, LEFT XR ANKLE, LEFT XR FOOT, LEFT CLINICAL INFORMATION: Pain. COMPARISON: Left knee radiographs dated 10/12/2020. Pelvic radiograph dated 03/16/2020. Left ankle radiographs dated 09/16/2018. TECHNIQUE: AP and frog-leg lateral views of the left hip. AP, bilateral oblique, and lateral views of the left knee. AP and lateral views of the left tibia/fibula. AP, oblique, and lateral views of the left foot and left ankle. FINDINGS: Left Hip: No acute fracture or dislocation. Mild joint space narrowing with lateral acetabular marginal osteophytes, unchanged. Phleboliths within the pelvis. Stable ossification adjacent to the greater trochanter, which could indicate chronic tendinopathy. Left Knee: No acute fracture or dislocation. No joint space narrowing or marginal osteophytes. No osseous erosion. No abnormal soft tissue calcification. No significant joint effusion. Left Tibia/Fibula: No acute fracture or dislocation. No lytic or blastic osseous lesion. No abnormal soft tissue calcification. Left Ankle: No acute fracture or dislocation. The ankle mortise is maintained. No joint space narrowing or marginal osteophytes. No osseous erosion. No abnormal soft tissue calcification. Left Foot: No acute fracture or dislocation. Mild joint space narrowing with tiny marginal osteophytes at the 1st metatarsophalangeal joint. Tiny plantar calcaneal spur. XR/XR tibia fibula LT 2V IMPRESSION: LEFT HIP: Mild osteophyte arthritis, unchanged. Ossification adjacent to the greater trochanter which is unchanged and could indicate chronic tendinopathy. LEFT KNEE: Unremarkable examination. LEFT TIBIA/FIBULA: Unremarkable examination. LEFT ANKLE: Unremarkable examination. LEFT FOOT: Mild degenerative arthritis at the 1st metatarsophalangeal joint. Tiny plantar calcaneal spur.
--- NOTE | ~2020-11-24 | XR_ITS ---
EXAMINATION: XR HIP, LEFT XR KNEE, LEFT XR TIBIA/FIBULA, LEFT XR ANKLE, LEFT XR FOOT, LEFT CLINICAL INFORMATION: Pain. COMPARISON: Left knee radiographs dated 10/12/2020. Pelvic radiograph dated 03/16/2020. Left ankle radiographs dated 09/16/2018. TECHNIQUE: AP and frog-leg lateral views of the left hip. AP, bilateral oblique, and lateral views of the left knee. AP and lateral views of the left tibia/fibula. AP, oblique, and lateral views of the left foot and left ankle. FINDINGS: Left Hip: No acute fracture or dislocation. Mild joint space narrowing with lateral acetabular marginal osteophytes, unchanged. Phleboliths within the pelvis. Stable ossification adjacent to the greater trochanter, which could indicate chronic tendinopathy. Left Knee: No acute fracture or dislocation. No joint space narrowing or marginal osteophytes. No osseous erosion. No abnormal soft tissue calcification. No significant joint effusion. Left Tibia/Fibula: No acute fracture or dislocation. No lytic or blastic osseous lesion. No abnormal soft tissue calcification. Left Ankle: No acute fracture or dislocation. The ankle mortise is maintained. No joint space narrowing or marginal osteophytes. No osseous erosion. No abnormal soft tissue calcification. Left Foot: No acute fracture or dislocation. Mild joint space narrowing with tiny marginal osteophytes at the 1st metatarsophalangeal joint. Tiny plantar calcaneal spur. XR/XR knee LT 4V IMPRESSION: LEFT HIP: Mild osteophyte arthritis, unchanged. Ossification adjacent to the greater trochanter which is unchanged and could indicate chronic tendinopathy. LEFT KNEE: Unremarkable examination. LEFT TIBIA/FIBULA: Unremarkable examination. LEFT ANKLE: Unremarkable examination. LEFT FOOT: Mild degenerative arthritis at the 1st metatarsophalangeal joint. Tiny plantar calcaneal spur.
--- NOTE | ~2020-11-24 | XR_ITS ---
EXAMINATION: XR HIP, LEFT XR KNEE, LEFT XR TIBIA/FIBULA, LEFT XR ANKLE, LEFT XR FOOT, LEFT CLINICAL INFORMATION: Pain. COMPARISON: Left knee radiographs dated 10/12/2020. Pelvic radiograph dated 03/16/2020. Left ankle radiographs dated 09/16/2018. TECHNIQUE: AP and frog-leg lateral views of the left hip. AP, bilateral oblique, and lateral views of the left knee. AP and lateral views of the left tibia/fibula. AP, oblique, and lateral views of the left foot and left ankle. FINDINGS: Left Hip: No acute fracture or dislocation. Mild joint space narrowing with lateral acetabular marginal osteophytes, unchanged. Phleboliths within the pelvis. Stable ossification adjacent to the greater trochanter, which could indicate chronic tendinopathy. Left Knee: No acute fracture or dislocation. No joint space narrowing or marginal osteophytes. No osseous erosion. No abnormal soft tissue calcification. No significant joint effusion. Left Tibia/Fibula: No acute fracture or dislocation. No lytic or blastic osseous lesion. No abnormal soft tissue calcification. Left Ankle: No acute fracture or dislocation. The ankle mortise is maintained. No joint space narrowing or marginal osteophytes. No osseous erosion. No abnormal soft tissue calcification. Left Foot: No acute fracture or dislocation. Mild joint space narrowing with tiny marginal osteophytes at the 1st metatarsophalangeal joint. Tiny plantar calcaneal spur. XR/XR hip LT min 2V IMPRESSION: LEFT HIP: Mild osteophyte arthritis, unchanged. Ossification adjacent to the greater trochanter which is unchanged and could indicate chronic tendinopathy. LEFT KNEE: Unremarkable examination. LEFT TIBIA/FIBULA: Unremarkable examination. LEFT ANKLE: Unremarkable examination. LEFT FOOT: Mild degenerative arthritis at the 1st metatarsophalangeal joint. Tiny plantar calcaneal spur.
== END 2020-11-24 13:12 | disposition home or self-care (01) ==
LOC: HO.XRAY 13:11
PROVIDERS: PCP Internal Medicine; Visit Provider Emergency Medicine
DX: M25.552 Pain in left hip (principal); M25.562 Pain in left knee; M25.572 Pain in left ankle and joints of left foot; M79.662 Pain in left lower leg; M79.672 Pain in left foot
CPT/HCPCS: 73502; 73564; 73590; 73600; 73630

== ENCOUNTER 2021-01-14 15:18 | Emergency (ER) | payer MEDICAID, SELFPAY ==
--- NOTE | ~2021-01-14 | XR_ITS ---
EXAMINATION: XR HIP, LEFT CLINICAL INFORMATION: Fall, trauma, pain COMPARISON: Radiographs left hip 11/24/2020 TECHNIQUE: AP view of the pelvis and 2 views left hip are obtained. FINDINGS: There is no fracture or dislocation. The SI joints and pubis show no diastases. The bony pelvis is intact. The left hip shows no fracture or dislocation or focal joint narrowing. There is calcific tendinosis at the hamstrings, adjacent to the ischial tuberosities. Some benign calcifications also residing adjacent to the bilateral greater trochanters. XR/XR hip LT w PEL1V IMPRESSION: No fracture or dislocation.
--- NOTE | ~2021-01-14 | XR_ITS ---
EXAMINATION: XR SHOULDER, RIGHT CLINICAL INFORMATION: Fall, trauma, pain COMPARISON: Chest radiograph 01/14/2021, 10/12/2020 TECHNIQUE: Right shoulder is imaged in 4 views. FINDINGS: There is no fracture or dislocation or destructive process. The glenohumeral joint is unremarkable. The acromioclavicular alignment is normal. Right lung apex shows no pneumothorax or pleural reaction. There is bulky calcification adjacent to the anterior superior humeral head likely calcific tendinosis. This measures approximately 1 cm thickness by 2.6 cm in length. There is a smooth exostosis right medial apex corresponding to upper medial costovertebral junction. XR/XR shoulder RT min 2V IMPRESSION: 1. No fracture or dislocation. 2. Bulky calcific tendinosis.
--- NOTE | ~2021-01-14 | CT_ITS ---
EXAMINATION: CT HEAD WITHOUT CONTRAST CLINICAL INFORMATION: Lightheadedness and dizziness. Fall. COMPARISON: Previous head CT most recent March 2020 TECHNIQUE: Contiguous axial imaging was performed from the skull base to vertex without intravenous administration of contrast. This CT examination was performed using dose optimization techniques as appropriate, variously including the following: *Automated exposure control *Adjustment of mA and/or kV according to patient size (this includes techniques or standardized protocols for targeted exams where dose is matched to indication/reason for exam; i.e. extremities or head) *Use of iterative reconstruction technique DLP: 650 mGy-cm FINDINGS: There is no evidence of acute intracranial hemorrhage or territorial infarction. No abnormal mass effect or midline shift is seen. Millan to white matter differentiation is well preserved. No extra-axial fluid collections are identified. The ventricles are normal in size. There is no abnormal attenuation within the brain parenchyma. There is evidence of atherosclerotic disease. The osseous structures and soft tissues are normal. The mastoid air cells and visualized portions of the paranasal sinuses are well aerated. CT/CT head/brain wo con IMPRESSION: Unremarkable exam.
--- NOTE | ~2021-01-14 | CT_ITS ---
EXAMINATION: CT CERVICAL SPINE WITHOUT CONTRAST CLINICAL INFORMATION: Dizziness. Fall. COMPARISON: Previous CT scans most recent March 2020 TECHNIQUE: Axial images through the cervical spine without contrast. Sagittal and coronal reconstructions on the technologist workstation were performed. This CT examination was performed using dose optimization techniques as appropriate, variously including the following: *Automated exposure control *Adjustment of mA and/or kV according to patient size (this includes techniques or standardized protocols for targeted exams where dose is matched to indication/reason for exam; i.e. extremities or head) *Use of iterative reconstruction technique DLP: 335 mGy-cm FINDINGS: Bone alignment is normal. No fracture or dislocation is seen. There is mild degenerative spondylosis from C3-C4 to C6-C7. Disc spaces are normal. Prevertebral soft tissues are normal. There is shotty cervical lymphadenopathy. The lung apices are clear. CT/CT cervical spine wo con IMPRESSION: Mild degenerative changes. No fracture or dislocation seen.
--- NOTE | ~2021-01-14 | XR_ITS ---
EXAMINATION: XR CHEST CLINICAL INFORMATION: Fall, lightheaded COMPARISON: Chest radiograph 10/12/2020, CTA chest 03/16/2020 TECHNIQUE: Frontal view of the chest was obtained. FINDINGS: There is no pneumothorax or subcutaneous emphysema. No airspace consolidation or groundglass opacity or effusion. The costophrenic sulci are clear. The heart is normal in size and the hilar and mediastinal contours are normal. No visible acute bony abnormality. Convexity at the right superior medial apex likely related to exostosis at the costovertebral junction appears stable from prior exams. XR/XR chest 1V IMPRESSION: Unremarkable examination.
[2021-01-14 15:24] VITALS: BP 152/77; PULSE 70; RESP 18; TEMP 36.1; O2SAT 98; BMI 27.4
--- NOTE | 2021-01-14 15:56 | ECG_ITS ---
Test Reason : WEAKNESS Blood Pressure : / mmHG Vent. Rate : 069 BPM Atrial Rate : 069 BPM P-R Int : 246 ms QRS Dur : 082 ms QT Int : 418 ms P-R-T Axes : 058 004 034 degrees QTc Int : 447 ms Sinus rhythm with 1st degree A-V block Abnormal ECG When compared with ECG of 12-OCT-2020 14:51, No significant change was found Referred By: Irina Aguillon Electronically Signed By:VIVEK JORDAN
--- NOTE | 2021-01-14 16:03 | ED.GENADULT ---
HPI - General Adult General Chief complaint: Recheck/Abnormal Lab/Rx Stated complaint: HBP Time Seen by Provider: 01/14/21 15:31 Source: patient Mode of arrival: ambulatory History of Present Illness HPI narrative: 55-year-old female with a past medical history of asthma, depression, diabetes, HTN, [place], presenting to the ED sent in from [facility] for elevated BP, headache, lightheadedness/dizziness, & 2 falls in the past couple days secondary to her knees giving out. Admits prior to falling also felt lightheaded/dizzy. Reports similar symptoms in the past. Did hit head during falls, denies LOC. Also reports left hip pain since fall, acute on chronic right shoulder pain, chronic blurry vision, & CP/SOB. Denies visual loss, cough, nausea/vomiting, abdominal pain, LE edema. At baseline ambulates with walker Related Data Previous Rx's Medication Instructions Recorded naproxen 500 mg tablet 500 mg PO BID PRN #20 tab 03/16/20 Allergies Allergy/AdvReac Type Severity Reaction Status Date / Time morphine [MORPHINE] Allergy Intermediate ITCHY, RASH Verified 10/12/20 13:28 Review of Systems Review of Systems: Constitutional: No Fever, No Chills, + Fatigue, + Malaise ENT/Mouth: No Ear Pain, No Nasal Congestion, No Hoarseness, No sore throat Eyes: No Eye Pain, No Swelling, No Discharge, +chronic blurry vision Cardiovascular: + Chest Pain, + SOB, No Dyspnea on Exertion, No Orthopnea, No Edema, No Palpitations Respiratory: No Cough, No Dyspnea Gastrointestinal: No Nausea, No Vomiting, No Diarrhea, No Constipation, No Abdominal pain Genitourinary: No Dysuria, No Urinary Frequency, No Hematuria, No Urgency, No Flank Pain, No Hesitancy Musculoskeletal: + joint pain, No Myalgias, No Joint Swelling Skin: No Skin Lesions, No rash Neuro: No Weakness, No Numbness, No Paresthesias, No Loss of Consciousness, +Lightheadedness /Dizziness, + Headache Yes all other systems are reviewed and are negative [facility] Past Medical History Attestation statement: The following information was validated with the patient. Medical History (Updated 01/14/21 @ 17:38 by JONNA Aguilar) Asthma Depression Diabetes mellitus type 1 Hypertension Myocardial infarction Surgical History (Updated 03/16/20 @ 15:07 by Delon Gonzalez) Hx laparoscopic cholecystectomy Social History Social History Advance Directives: No Advance Directives Information Provided: No Physical Exam Vital Signs: Vital Signs: Last Vital Signs Temp 97.7 F 01/14/21 17:04 Pulse 72 01/14/21 17:04 Resp 18 01/14/21 17:04 BP 147/61 H 01/14/21 17:04 Pulse Ox 99 01/14/21 17:04 Body Mass Index 27.4 Const: General: cooperative, healthy appearing, no acute distress and well developed Orientation/consciousness: patient oriented x3 Limitations: no limitations HENMT: Head: Yes normal to inspection, Yes atraumatic, No Hernandez's sign and No raccoon eyes Ears: hearing grossly normal bilaterally General nose exam: Normal external nose present Face and sinus: Yes normal facial exam Mouth: Normal oral and palatal mucosa present Throat: Yes posterior oropharynx normal, Yes tonsils normal, Yes uvula midline, No uvula laterally displaced and No uvular edema Eyes: General: appearance normal, both eyes and all related structures Pupils: Equal, round and reactive pupils present EOM: EOMs intact bilaterally Neck: Other: No midline cervical spinous tenderness Neck: Yes normal visual inspection and Yes no meningeal signs Resp: Effort & Inspection: normal respiratory effort Auscultation: clear to auscultation bilaterally, no rales, no rhonchi and no wheezes Cardio: Rate: regular rate Heart sounds: S1 normal heart sound present and S2 normal heart sound present GI: Inspection: Yes normal to inspection Palpation (GI): Soft to palpation, nontender, no guarding and not rigid Back/Spine/Pelvis: Other: No midline thoracic/lumbar spinous tenderness Skin: Rashes: no rashes Wounds: no wounds Neuro: General: patient oriented x3, tone normal, moves all extremities, no meningeal signs and CN's II-XI intact bilaterally Cranial nerves: Yes CN's II-XII intact bilaterally and Yes Equal, round and reactive pupils present Cognition (Neuro): normal cognition Gait exam (Neuro): Normal gait present Motor exam (neuro): 5/5 motor strength present throughout, Pronator motor function not present and no tremor noted Coordination: [id number] test normal Romberg Test: Negative Extrem: Other: Right shoulder tender to palpation, no visible deformity. Decreased ROM secondary to pain. Neurovascular intact distally. Left hip with tenderness to palpation. Passive ROM intact without pain. Neurovascular intact distally. Course Course Course Narrative: XR chest 1V IMPRESSION: Unremarkable examination XR shoulder RT min 2V IMPRESSION: 1. No fracture or dislocation. 2. Bulky calcific tendinosis. XR hip LT w PEL1V IMPRESSION: No fracture or dislocation. CT head/brain wo con IMPRESSION: Unremarkable exam. CT cervical s pine wo con IMPRESSION: Mild degenerative changes. No fracture or dislocation seen.? ? -1720--orthostatics positive will give IVF and repeat, UA not infected -1728--no leukocytosis, magnesium slightly low will give p.o. repletion. Initial troponin 47.7 >> will obtain 3 hour repeat -1800--ED care transfered to CELESTE Gonzalez pending repeat troponin, IVF and repeat orthostatics. Patient has been ambulating independently to the bathroom in the ED. Plan is for discharge pending stated results Medical Decision Making MDM Narrative Medical decision making narrative: 55-year-old female with a past medical history of asthma, depression, diabetes, HTN, [place], presenting to the ED sent in from [facility] for elevated BP, headache, lightheadedness/dizziness, & 2 falls in the past couple days secondary to her knees giving out. On exam VSS, NAD, no focal neuro deficits, physical exam as above. Concern for metabolic abnormalities. Unlikely hypertensive emergency or SAH. Rule out ICH/fractures and infectious etiology. Low concern for intra-abdominal pathology. Patient has had prior presentations similar to in the past Plan: EKG, labs, imaging, UA, orthostatics, IVF, reassess Lab Data Result diagrams: 01/14/21 16:58 01/14/21 16:58 Labs: Lab Results 01/14/21 01/14/21 01/14/21 Range/Units 16:58 16:58 16:58 WBC 7.7 (4.8-10.8) X10*3/uL RBC 4.10 L (4.20-5.50) X10*6/uL Hgb 11.3 L (12.0-16.0) g/dl Hct 34.5 L (37-47) % MCV 84.1 (80-98) fL MCH 27.6 (27.0-33.0) pg MCHC 32.8 (31.0-35.0) g/dl RDW 12.6 (11.0-16.0) % Plt Count 333 (160-400) X10*3/uL MPV 10.2 (9.4-12.3) fL Immature Gran % (Auto) 0.3 (0.0-0.4) % Neut % (Auto) 46.8 (45-73) % Lymph % (Auto) 43.7 H (20-40) % Summers % (Auto) 6.5 (2-11) % Eos % (Auto) 2.3 (0-4) % Baso % (Auto) 0.4 (0-2) % Lymph # (Auto) 3.4 (1.2-4.9) X10*3/uL Summers # (Auto) 0.5 (0.1-1.2) X10*3/uL Eos # (Auto) 0.2 (0.0-0.4) X10*3/uL Baso # (Auto) 0.0 (0.0-0.2) X10*3/uL Abs Immat Gran (auto) 0.02 (0.00-0.03) X10*3/uL Absolute Neuts (auto) 3.6 (2.0-8.3) X10*3/uL Absolute Nucleated RBC 0.000 (0.0-0.012) X10*3/uL Nucleated RBC % (auto) 0.0 (0.0-0.2) /100WBC Sodium 135 (135-145) mmol/L Potassium 4.1 (3.3-5.1) mmol/L Chloride 100 (96-108) mmol/L Carbon Dioxide 28 (22-29) mmol/L Anion Gap 11 L (12-20) BUN 11 (9-16) mg/dL Creatinine 0.62 (0.5-1.4) mg/dL Estim Creat Clear Calc 93.8 Estimated GFR > 60 Random Glucose 187 H (60-115) mg/dL Calcium 9.8 (8.4-10.2) mg/dL Magnesium 1.5 L (1.6-2.6) mg/dL Total Bilirubin 1.0 (0.0-1.0) mg/dL Direct Bilirubin 0.3 (0.0-0.5) mg/dL AST 15 (5-31) U/L ALT 22 (0-31) U/L Alkaline Phosphatase 70 (39-117) U/L Total Protein 6.9 (6.5-8.0) g/dL Albumin 4.0 (3.5-5.0) g/dL Lipase 14 (8-78) U/L Urine Color YELLOW Urine Appearance CLEAR Urine pH 6.0 (5.0-8.0) Ur Specific [place] 1.020 (1.005-1.025) Urine Protein NEG (NEG-TRACE) MG/DL Urine Glucose (UA) 250 H (NEG) MG/DL Urine Ketones NEG (NEG) MG/DL Urine Blood NEG (NEG) Urine Nitrite NEG (NEG) Ur Leukocyte Esterase NEG (NEG) Discharge Plan Discharge Clinical Impression: Episodic lightheadedness, Falls, Headache, Acute hip pain Prescriptions: No Action naproxen 500 mg tablet 500 mg PO BID PRN (Reason: pain) Qty: 20 RF: 0
[2021-01-14] MEDS: 0.9 % Sodium Chloride 1,000 ML 999 ML IVCONT ×2 (17:00→17:31)
[2021-01-14 17:01] VITALS: BP 147/61; BP 155/75; PULSE 72
[2021-01-14 17:03] VITALS: BP 148/70; PULSE 69
[2021-01-14 17:04] VITALS: BP 147/61; PULSE 72; RESP 18; TEMP 36.5; O2SAT 99
[2021-01-14 17:08] LABS: MANUAL DIFF FLAG NO
[2021-01-14 17:10] LABS: Basophils Percent Auto 0.4 % (0-2); Eosinophils Absolute Auto 0.2 X10*3/uL (0.0-0.4); Eosinophils Percent Auto 2.3 % (0-4); Hematocrit 34.5 % (37-47); Hemoglobin 11.3 g/dl (12.0-16.0); Imm Gran Abs Auto 0.02 X10*3/uL (0.00-0.03); Imm Gran Pct Auto 0.3 % (0.0-0.4); Lymphocytes Absolute Auto 3.4 X10*3/uL (1.2-4.9); Lymphocytes Percent Auto 43.7 % (20-40); Mean Corpuscular HGB Conc 32.8 g/dl (31.0-35.0); Mean Corpuscular Hemoglobin 27.6 pg (27.0-33.0); Mean Corpuscular Volume 84.1 fL (80-98); Mean Platelet Volume 10.2 fL (9.4-12.3); Monocytes Absolute Auto 0.5 X10*3/uL (0.1-1.2); Monocytes Percent Auto 6.5 % (2-11); Neutrophils Absolute Auto 3.6 X10*3/uL (2.0-8.3); Neutrophils Percent Auto 46.8 % (45-73); Platelet Count 333 X10*3/uL (160-400); Red Cell Distribution Width 12.6 % (11.0-16.0); White Blood Count 7.7 X10*3/uL (4.8-10.8)
[2021-01-14 17:13] LABS: Glucose Urine UA 250 MG/DL (NEG); Leukocyte Esterase Urine NEG (NEG); Nitrite Urine NEG (NEG); Urine Blood NEG (NEG); Urine Ketones NEG (NEG); Urine Protein NEG (NEG-TRACE)
[2021-01-14 17:20] LABS: Appearance Urine CLEAR; Color Urine YELLOW
[2021-01-14 17:26] LABS: Alanine Aminotransferase 22 U/L (0-31); Alkaline Phosphatase 70 U/L (39-117); Anion Gap 11 (12-20); Aspartate Amino Transferase 15 U/L (5-31); Bilirubin Direct 0.3 mg/dL (0.0-0.5); Blood Urea Nitrogen 11 mg/dL (9-16); Calcium 9.8 mg/dL (8.4-10.2); Carbon Dioxide 28 mmol/L (22-29); Chloride 100 mmol/L (96-108); Creatinine Clr Calc Pharmacy 93.8; Estimated Glomerular Filt Rate > 60; Glucose Random 187 mg/dL (60-115); Lipase 14 U/L (8-78); Magnesium 1.5 mg/dL (1.6-2.6); Potassium 4.1 mmol/L (3.3-5.1); Sodium 135 mmol/L (135-145); Total Protein 6.9 g/dL (6.5-8.0)
[2021-01-14 17:35] LABS: Troponin-I High Sensitivity 47.7 ng/L (<3.5-17.0)
[2021-01-14] MEDS: Magnesium Oxide 400 MG TABLET PO (17:38)
[2021-01-14 17:39] LABS: Amphetamine Screen Urine Not Detected (Not Detect); Barbiturates, Urine Not Detected (Not Detect); Benzodiazepines Screen Urine Not Detected (Not Detect); Cannabinoid Screen Urine Not Detected (Not Detect); Cocaine Screen Urine Not Detected (Not Detect); Fentanyl, urine Not Detected (Not Detect); Opiate Screen Urine Not Detected (Not Detect); Phencyclidine Screen Urine Not Detected (Not Detect)
[2021-01-14 18:20] VITALS: BP 155/85; PULSE 74; RESP 16; TEMP 36.6; O2SAT 98
[2021-01-14 20:15] LABS: Troponin-I High Sensitivity 51.8 ng/L (<3.5-17.0)
== END 2021-01-14 20:50 | disposition home or self-care (01) ==
PROVIDERS: Nurse Practitioner Family; Physician Assistant; Emergency Provider Emergency Medicine; PCP Internal Medicine
DX: R42 Dizziness and giddiness (principal); R51.9 Headache, unspecified; G89.11 Acute pain due to trauma; M25.552 Pain in left hip; I10 Essential (primary) hypertension; R06.02 Shortness of breath; E10.9 Type 1 diabetes mellitus without complications; J45.909 Unspecified asthma, uncomplicated; I25.2 Old myocardial infarction; Z91.81 History of falling; Z79.1 Long term (current) use of non-steroidal anti-inflammatories (NSAID)
CPT/HCPCS: 36415; 70450; 71045; 72125; 73030; 73502; 80048; 80076; 80307; 81003; 83690; 83735; 84484; 85025; 93005; 96360; 96361; 99284

== ENCOUNTER 2021-01-26 15:40 | Outpatient (REF) | payer MEDICAID, SELFPAY ==
--- NOTE | ~2021-01-26 | US_ITS ---
EXAMINATION: US PELVIS CLINICAL INFORMATION: Pelvic pain. COMPARISON: None TECHNIQUE: Ultrasound of the pelvis is performed using both transabdominal and transvaginal transducers along with Doppler. Transvaginal imaging is performed due to inadequate visualization transabdominally. FINDINGS: Uterus: The uterus is anteverted and measures 7.7 x 3.2 x 4.0 cm. There is a solitary hypoechoic lesion in the posterior body of uterus measuring 1.4 x 1.12 x 1.5 cm consistent with fibroid. No additional lesions seen. The double wall endometrial thickness is 0.6 cm. The uterus is smooth in contour and has normal myometrial echogenicity. No visible fibroid. Adnexa: Both ovaries are visualized. There is normal color flow to the adnexa. There is no ovarian torsion. There is no pelvic ascites or fluid collection. Right ovary measures 1.4 x 1.4 x 1.4 cm. 1.4 Left ovary measures 2.0 x 1.6 x 1.6 cm. 2.7 There is no free fluid in the cul-de-sac. US/US pelvic and transvaginal IMPRESSION: Small uterine fibroid. No additional lesions seen. The ovaries are unremarkable. There is no free fluid in cul-de-sac.
== END 2021-01-26 15:41 | disposition home or self-care (01) ==
LOC: HO.US 15:40
PROVIDERS: PCP Advanced Practice Midwife; Visit Provider Advanced Practice Midwife
DX: R10.2 Pelvic and perineal pain (principal)
CPT/HCPCS: 76830; 76856

== ENCOUNTER → 2021-02-10 12:33 | Outpatient (BNVA) | payer MEDICAID, SELFPAY | PROVIDERS: PCP Internal Medicine; Visit Provider Nurse Practitioner Gerontology | DX: E11.9 Type 2 diabetes mellitus without complications (principal); E78.5 Hyperlipidemia, unspecified; E66.3 Overweight; I10 Essential (primary) hypertension | CPT/HCPCS: 82947; 83036; 99212 ==

== ENCOUNTER 2021-03-29 13:55 | Outpatient (REF) | payer MEDICAID, SELFPAY ==
--- NOTE | ~2021-03-29 | XR_ITS ---
EXAMINATION: XR CHEST CLINICAL INFORMATION: Acute onset of left-sided pleuritic chest pain. Fall onto rib. COMPARISON: 01/14/2021 TECHNIQUE: 2 views of the chest were obtained. FINDINGS: Normal cardiomediastinal silhouette. Adequate expansion of the lungs. No focal consolidation. No pleural effusion or pneumothorax. No acute osseous abnormality. Specifically, no acute rib fracture is identified. XR/XR chest 2V IMPRESSION: No acute disease within the chest.
== END 2021-03-29 13:56 | disposition home or self-care (01) ==
LOC: HO.XRAY 13:55
PROVIDERS: Absent Provider Internal Medicine; PCP Internal Medicine; Visit Provider Nurse Practitioner
DX: R07.81 Pleurodynia (principal)
CPT/HCPCS: 71046

== ENCOUNTER → 2021-05-05 09:49 | Outpatient (BNVA) | payer MEDICAID, SELFPAY | PROVIDERS: PCP Internal Medicine; Visit Provider Registered Nurse Diabetes Educator | DX: E11.9 Type 2 diabetes mellitus without complications (principal); Z79.4 Long term (current) use of insulin | CPT/HCPCS: 99211 ==

== ENCOUNTER 2021-05-10 15:05 | Emergency (ER) | payer MEDICAID, SELFPAY ==
[2021-05-10] VITALS (9 sets, daily range): BP systolic 169–200; BP diastolic 75–107; PULSE 90–102; RESP 16–20; TEMP 37.7–38; O2SAT 96–99; BMI 37.8
--- NOTE | 2021-05-10 | ECG_ITS ---
Test Reason : DIZZYNES Blood Pressure : / mmHG Vent. Rate : 097 BPM Atrial Rate : 097 BPM P-R Int : 234 ms QRS Dur : 084 ms QT Int : 370 ms P-R-T Axes : 066 -02 022 degrees QTc Int : 469 ms Sinus rhythm with 1st degree A-V block Moderate voltage criteria for LVH, may be normal variant ( R in aVL , Maupin product ) Possible Anterior infarct , age undetermined Abnormal ECG When compared with ECG of 14-JAN-2021 16:55, Borderline criteria for Anterior infarct are now Present Referred By: Generic ED Physician Electronically Signed By:Fabio Andrade
--- NOTE | ~2021-05-10 | CT_ITS ---
EXAMINATION: CT HEAD WITHOUT CONTRAST CLINICAL INFORMATION: Fall with headache COMPARISON: 01/14/2021 TECHNIQUE: Contiguous axial imaging was performed from the skull base to vertex without intravenous administration of contrast. This CT examination was performed using dose optimization techniques as appropriate, variously including the following: *Automated exposure control *Adjustment of mA and/or kV according to patient size (this includes techniques or standardized protocols for targeted exams where dose is matched to indication/reason for exam; i.e. extremities or head) *Use of iterative reconstruction technique DLP: 607 mGy-cm FINDINGS: There is no midline shift. There is no mass effect. There is no hemorrhage. The basal cisterns appear patent. The posterior fossa is grossly within normal limits. No extra-axial collection. The tyler-white matter is comparable to previous. Vascular calcifications are noted. No fracture on the bone windows. CT/CT head/brain wo con IMPRESSION: No acute finding.
--- NOTE | ~2021-05-10 | XR_ITS ---
EXAMINATION: XR ELBOW, LEFT XR HAND, LEFT CLINICAL INFORMATION: Elbow and hand pain COMPARISON: Left hand 09/26/2018 TECHNIQUE: AP, lateral, and oblique views of the left elbow. 3 views left hand FINDINGS: Hand: Again seen are degenerative changes at the first metacarpal phalangeal joint. Some minimal degenerative changes present at the DIP joint. There is some mild erosive change of the tip of the radial styloid, new since the prior study. No acute osseous injury is seen. Elbow: No significant bone joint or soft tissue abnormality is seen. XR/XR elbow LT min 3V IMPRESSION: 1. Normal left elbow. 2. Degenerative changes in the hand as described above, slightly progressive since 2019. 3. No acute osseous injury or findings.
--- NOTE | ~2021-05-10 | XR_ITS ---
EXAMINATION: XR ELBOW, LEFT XR HAND, LEFT CLINICAL INFORMATION: Elbow and hand pain COMPARISON: Left hand 09/26/2018 TECHNIQUE: AP, lateral, and oblique views of the left elbow. 3 views left hand FINDINGS: Hand: Again seen are degenerative changes at the first metacarpal phalangeal joint. Some minimal degenerative changes present at the DIP joint. There is some mild erosive change of the tip of the radial styloid, new since the prior study. No acute osseous injury is seen. Elbow: No significant bone joint or soft tissue abnormality is seen. XR/XR hand wrist LT IMPRESSION: 1. Normal left elbow. 2. Degenerative changes in the hand as described above, slightly progressive since 2019. 3. No acute osseous injury or findings.
[2021-05-10 15:54] LABS: Basophils Percent Auto 0.3 % (0-2); Eosinophils Percent Auto 0.6 % (0-4); Hematocrit 40.1 % (37.0-47.0); Imm Gran Abs Auto 0.01 X10*3/uL (0.00-0.03); Imm Gran Pct Auto 0.1 % (0.0-0.4); Lymphocytes Absolute Auto 1.4 X10*3/uL (1.2-4.9); Lymphocytes Percent Auto 20.3 % (20-40); MANUAL DIFF FLAG NO; Mean Corpuscular HGB Conc 32.4 g/dl (31.0-35.0); Mean Corpuscular Hemoglobin 27.2 pg (27.0-33.0); Mean Corpuscular Volume 83.9 fL (80.0-98.0); Mean Platelet Volume 9.9 fL (9.4-12.3); Monocytes Absolute Auto 0.6 X10*3/uL (0.1-1.2); Monocytes Percent Auto 8.6 % (2-11); Neutrophils Percent Auto 70.1 % (45-73); Platelet Count 313 X10*3/uL (160-400); Red Blood Count 4.78 X10*6/uL (4.20-5.50); Red Cell Distribution Width 12.4 % (11.0-16.0); White Blood Count 7.1 X10*3/uL (4.8-10.8)
--- NOTE | 2021-05-10 16:04 | ED_ITS ---
HPI - General Adult General Chief complaint: Dizziness Stated complaint: FALL ON SUNDAY W/DIZZY PER SNF Time Seen by Provider: 05/10/21 16:04 Source: patient Mode of arrival: EMS Limitations: no limitations History of Present Illness HPI narrative: 55 year old female past medical history significant for obesity, diabetes, hypertension, hyperlipidemia presents to the ed with concerns of nausea/vomiting, chest pain, headache and dizziness X 6 days progressively worsening. Patient tells me that she has been having trouble getting her words out. She reports intermittent nausea and vomiting. She also reports substernal chest pain which she describes as stabbing in nature, and severe. She also reports headache and dizziness. When I ask her if she hit her head she tells me she does not now. She tells me her left wrist and elbow are hurting. She tells me she did not lose consciousness. She is not on blood thinners. Onset (ago): day(s) (6) Location: chest Radiation: non-radiation Severity: moderate Quality: constant Pain Consistency: constant Relieving factors: none Exacerbating factors: none Associated symptoms: headaches and other (difficulty speaking , dizziness ) Treatments prior to arrival: none Related Data Home Medications Medication Instructions Recorded Confirmed amlodipine 10 mg tablet 10 mg PO DAILY 02/10/21 02/10/21 aspirin 81 mg tablet,delayed 81 mg PO DAILY 02/10/21 02/10/21 release (Adult Low Dose Aspirin) atorvastatin 80 mg tablet 80 mg PO DAILY 02/10/21 02/10/21 gabapentin 100 mg capsule 100 mg PO DAILY 02/10/21 02/10/21 insulin aspart U-100 100 unit/mL 6 - 10 unit SUBCUT TID ml 02/10/21 02/10/21 (3 mL) subcutaneous pen (Novolog Flexpen U-100 Insulin aspart) isosorbide mononitrate 30 mg 30 mg PO QAM 02/10/21 02/10/21 tablet,extended release 24 hr lisinopril 40 mg tablet 40 mg PO DAILY 02/10/21 02/10/21 loratadine 10 mg tablet 10 mg PO DAILY 02/10/21 02/10/21 mecobalamin (vitamin B12) 1,000 1,000 mcg PO DAILY 02/10/21 02/10/21 mcg chewable tablet metformin 500 mg tablet,extended 1,000 mg PO BID tab 02/10/21 02/10/21 release 24 hr metoprolol succinate 100 mg 100 mg PO DAILY 02/10/21 02/10/21 tablet,extended release 24 hr omeprazole 40 mg capsule,delayed 40 mg PO DAILY 02/10/21 02/10/21 release Previous Rx's Medication Instructions Recorded acetaminophen 325 mg capsule 650 mg PO Q6H PRN #20 cap 01/14/21 dulaglutide 0.75 mg/0.5 mL 0.75 mg (0.5 mL) SUBCUT QWEEK #2 ml 02/10/21 subcutaneous pen injector (Trulicity) insulin degludec 200 unit/mL (3 60 unit (0.3 mL) SUBCUT QPM #9 ml 05/05/21 mL) subcutaneous pen (Tresiba FlexTouch U-200 insulin) ondansetron 4 mg disintegrating 4 mg PO ONCE PRN #10 tab 05/10/21 tablet Allergies Allergy/AdvReac Type Severity Reaction Status Date / Time morphine [MORPHINE] Allergy Intermediate ITCHY, RASH Verified 02/10/21 13:08 Review of Systems Review of Systems: Constitutional : No Weight loss, No Fever, No Chills, No Fatigue, No Malaise ENT/Mouth : No sore throat, No Rhinorrhea Eyes: No Eye Pain, No Swelling, No Redness Cardiovascular : + Chest Pain, No SOB, No Dyspnea on Exertion, No Orthopnea, No Edema, No Palpitations Respiratory : No Cough, No Sputum, No Wheezing Gastrointestinal : No Nausea, + Vomiting, No Diarrhea, No Constipation, No abdominal Pain, No Hematochezia, No Melena Genitourinary : No Dysuria, No Urinary Frequency, No Hematuria, Musculoskeletal : No joint pain, No Myalgias, No Joint Swelling Skin : No Skin Lesions, No rash Neuro : No Weakness, No Numbness, + Dizziness, + Headache All other systems reviewed and are negative Yes all other systems are reviewed and are negative [facility] Past Medical History Attestation statement: The following information was validated with the patient. Source: old records reviewed and nursing notes reviewed Medical History (Updated 05/10/21 @ 20:17 by JONNA Kincaid) Asthma Depression DM2 (diabetes mellitus, type 2) History of CVA (cerebrovascular accident) HLD (hyperlipidemia) Hypertension Myocardial infarction Overweight Surgical History Hx of section Hx of cholecystectomy Family History Family History Father No problems noted. Mother No problems noted. Social History Social History Household Members: Significant Other Alcohol intake: never Patient Tobacco Use Status: Former Tobacco user Use of substances other than those prescribed or required for medical reasons: No Advance Directives: No Advance Directives Information Provided: Yes Patient : No Physical Exam Vital Signs: Vital Signs: Last Vital Signs Temp 99.8 F 05/10/21 19:51 Pulse 100 05/10/21 19:51 Resp 16 05/10/21 19:51 BP 169/75 H 05/10/21 19:51 Pulse Ox 96 05/10/21 19:51 BMI result Body Mass Index 37.8 Patient is noted to be hypertensive, she does have a history of hypertension. Appearance: Alert.? Oriented X3.? No acute distress.?Obese female Head: Normocephalic, atraumatic, no step-offs or deformities Eyes: Pupils equal, round and reactive to light.? ENT: Pharynx normal.?Normal lips, no facial droop. Neck: Normal inspection.? Neck supple.? CVS: Normal heart rate and rhythm.? Pulses normal.? Respiratory: No respiratory distress.? Breath sounds normal.? Abdomen: Soft and nontender.? Skin: Skin warm and dry.? Normal skin color.? Normal skin turgor.? Extremities: No lower extremity edema.? No calf ttp. 5/5 strength to bilateral upper and lower extremities Back: No midline tenderness, no C-spine tenderness, full range of motion, no CVA tenderness bilaterally Neuro: Oriented X 3.? No motor deficit.? No sensory deficit. Steady gait, no ataxia. Normal finger to nose, heel to lugo. 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 No slurred speech. Fluid speech, no dysarthiric speech. Course Reevaluation(s) Reevaluation #1: CBC within normal limits. Chemistry with no acute findings. Troponin is noted to be elevated at 50.6 a repeat troponin will be done at 6:45 a.m.. However, it appears that the patient's troponin has been chronically luis antonio vated. COVID negative. Orthostatic vitals negative. 324- ASA will be given. Discussed this with Dr. Doss. Time: 17:04 Reevaluation #2: Patient's blood pressure is noted to be elevated, patient tells me the second that she took her medicines she threw them up. I have ordered her home amlodipine and lisnopril dose here. I will also give fluids, and Zofran. Time: 17:27 Reevaluation #3: Second troponin noted to be 54.4, not consistent with ACS. Patient tells me that she is feeling much better, she no longer feels dizzy, she is ambulating well. Her chest pain has resolved. Her repeat neurological exam remains unchanged and nonfocal, normal [id number], [id number]-[id number], normal strength upper and lower extremities. Normal rapid alternating movements. Patient has been ambulating from her room to the bathroom with no issues. She tells me she wants to go home. Very low suspicion for ACS, cerebellar stroke, stroke. I have educated her on quarentine and isolation. I have given her strict return precautions. Patient's symptoms are likely secondary to COVID-19. Comfortable with DC Time: 20:16 Medical Decision Making MDM Narrative Medical decision making narrative: 1600 55 YO F pmhx obesity, DM, HTN, HLD presents to the ED w/ concerns of left arm and elbow pain, nausea/vomiting, left sided chest pain, KELLEY which feels like her typical and dizziness described as disequilibrium 6 days progressivly worsening. These sx started s/p a trip and fall 6 days ago. Denies weakness, vision changes. It was noted that patient reported difficulties with speech to nurse, she denied this to me. Physical examination benign. No focal neuro deficits. Patient's vitals significant for hypertension, likely secondary to patient throwing up her medicines. Unlikely stroke based off patients history and physical exam findings. Low suspicion for posterior infarct/cerebellar stroke, normal [id number]-[id number], lvebrm-[id number], normal gait no ataxia. Plan at this time is to obtain basic labs, orthostatic vitals, EKG, CT of head and brain without contrast, x-ray of the elbow and hand, BMP, CBC, liver, troponin, COVID. Medical Records Medical records reviewed: Yes I reviewed the patient's medical records. Lab Data Lab results reviewed: Yes I reviewed the patient's lab results. Result diagrams: 05/10/21 15:45 05/10/21 15:45 Labs: Lab Results 05/10/21 05/10/21 05/10/21 Range/Units 15:45 15:45 15:45 WBC 7.1 (4.8-10.8) X10*3/uL RBC 4.78 (4.20-5.50) X10*6/uL Hgb 13.0 (12.0-16.0) g/dl Hct 40.1 (37.0-47.0) % MCV 83.9 (80.0-98.0) fL MCH 27.2 (27.0-33.0) pg MCHC 32.4 (31.0-35.0) g/dl RDW 12.4 (11.0-16.0) % Plt Count 313 (160-400) X10*3/uL MPV 9.9 (9.4-12.3) fL Immature Gran % (Auto) 0.1 (0.0-0.4) % Neut % (Auto) 70.1 (45-73) % Lymph % (Auto) 20.3 (20-40) % Hudspeth % (Auto) 8.6 (2-11) % Eos % (Auto) 0.6 (0-4) % Baso % (Auto) 0.3 (0-2) % Lymph # (Auto) 1.4 (1.2-4.9) X10*3/uL Hudspeth # (Auto) 0.6 (0.1-1.2) X10*3/uL Eos # (Auto) 0.0 (0.0-0.4) X10*3/uL Baso # (Auto) 0.0 (0.0-0.2) X10*3/uL Abs Immat Gran (auto) 0.01 (0.00-0.03) X10*3/uL Absolute Neuts (auto) 5.0 (2.0-8.3) x10*3/uL Absolute Nucleated RBC 0.000 (0.0-0.012) X10*3/uL Nucleated RBC % (auto) 0.0 (0.0-0.2) /100WBC Sodium 140 (135-145) mmol/L Potassium 3.9 (3.3-5.1) mmol/L Chloride 101 (96-108) mmol/L Carbon Dioxide 30 H (22-29) mmol/L Anion Gap 13 (12-20) BUN 7 L (9-16) mg/dL Creatinine 0.64 (0.5-1.4) mg/dL Estim Creat Clear Calc 115.5 Estimated GFR > 60 Random Glucose 91 (60-115) mg/dL Calcium 10.4 H D (8.4-10.2) mg/dL Total Bilirubin 1.5 H (0.0-1.0) mg/dL Direct Bilirubin 0.5 (0.0-0.5) mg/dL AST 15 (5-31) U/L ALT 17 (0-31) U/L Alkaline Phosphatase 80 (39-117) U/L Troponin I High Sens 50.6 H* (<3.5-17.0) ng/L Total Protein 7.7 (6.5-8.0) g/dL Albumin 4.3 (3.5-5.0) g/dL COVID-19 (BASSEM) (Negative) COVID-19 Clin Com 05/10/21 05/10/21 Range/Units 15:45 19:09 WBC (4.8-10.8) X10*3/uL RBC (4.20-5.50) X10*6/uL Hgb (12.0-16.0) g/dl Hct (37.0-47.0) % MCV (80.0-98.0) fL MCH (27.0-33.0) pg MCHC (31.0-35.0) g/dl RDW (11.0-16.0) % Plt Count (160-400) X10*3/uL MPV (9.4-12.3) fL Immature Gran % (Auto) (0.0-0.4) % Neut % (Auto) (45-73) % Lymph % (Auto) (20-40) % Hudspeth % (Auto) (2-11) % Eos % (Auto) (0-4) % Baso % (Auto) (0-2) % Lymph # (Auto) (1.2-4.9) X10*3/uL Hudspeth # (Auto) (0.1-1.2) X10*3/uL Eos # (Auto) (0.0-0.4) X10*3/uL Baso # (Auto) (0.0-0.2) X10*3/uL Abs Immat Gran (auto) (0.00-0.03) X10*3/uL Absolute Neuts (auto) (2.0-8.3) x10*3/uL Absolute Nucleated RBC (0.0-0.012) X10*3/uL Nucleated RBC % (auto) (0.0-0.2) /100WBC Sodium (135-145) mmol/L Potassium (3.3-5.1) mmol/L Chloride (96-108) mmol/L Carbon Dioxide (22-29) mmol/L Anion Gap (12-20) BUN (9-16) mg/dL Creatinine (0.5-1.4) mg/dL Estim Creat Clear Calc Estimated GFR Random Glucose (60-115) mg/dL Calcium (8.4-10.2) mg/dL Total Bilirubin (0.0-1.0) mg/dL Direct Bilirubin (0.0-0.5) mg/dL AST (5-31) U/L ALT (0-31) U/L Alkaline Phosphatase (39-117) U/L Troponin I High Sens 54.4 H* (<3.5-17.0) ng/L Total Protein (6.5-8.0) g/dL Albumin (3.5-5.0) g/dL COVID-19 (BASSEM) Positive A (Negative) COVID-19 Clin Com See Note Imaging Data CT scan - head: Attestation: I personally reviewed and interpreted this imaging study as follows: Radiologist's impression: FINDINGS: There is no midline shift. There is no mass effect. There is no hemorrhage. The basal cisterns appear patent. The posterior fossa is grossly within normal limits. No extra-axial collection. The tyler-white matter is comparable to previous. Vascular calcifications are noted. No fracture on the bone windows. CT/CT head/brain wo con IMPRESSION: No acute finding. Left wrist/hand/elbow x-ray: Attestation: I personally reviewed and interpreted this imaging study as follows: Radiologist's impression: FINDINGS: Hand: Again seen are degenerative changes at the first metacarpal phalangeal joint. Some minimal degenerative changes present at the DIP joint. There is some mild erosive change of the tip of the radial styloid, new since the prior study. No acute osseous injury is seen. Elbow: No significant bone joint or soft tissue abnormality is seen. XR/XR elbow LT min 3V IMPRESSION: 1.? Normal left elbow. 2.? Degenerative changes in the hand as described above, slightly progressive since 2019. 3.? No acute osseous injury or findings. ECG Data Attestation: I personally reviewed and interpreted this ECG as follows: Prior ECG tracings: available for review Interpretation: Ventricular rate of 97, WV normal, QRS normal, QT/QTC normal. EKG shows normal sinus rhythm with first-degree AV block, and moderate voltage criteria for LVH. No ST elevations or inversions, no acute ischemia. No acute changes from EKG on January 14, 2021. On that EKG a first-degree block was also present. Critical Care Time Critical Care Time Critical Care Time: No Discharge Plan Discharge Clinical Impression: COVID-19, Left wrist pain, Elbow pain, left, Fall, Chest pain not due to acute coronary syndrome, Headache Patient Disposition: Home, Self-Care Instructions: COVID-19 (Coronavirus Disease 2019) (ED) Additional Instructions: Take your medications as prescribed. If you were prescribed antibiotics today, it is important that you take your medication to their entirety, do not skip any doses, do not finish them early. Today you tested positive for COVID-19. Take Ibuprofen or Tylenol as needed for fevers or body aches. Quarantine for 14 days if you are not vaccinated or for 10 days if you are vaccinated. Drink plenty of fluids. Follow-up with your primary care provider this week. Return to the emergency department with new or worsening symptoms. In case of emergency call 911 Prescriptions: New ondansetron 4 mg tablet,disintegrating 4 mg PO ONCE PRN (Reason: nausea and vomiting) Qty: 10 RF: 0 No Action Tresiba FlexTouch U-200 200 unit/mL (3 mL) insulin pen 60 unit subcut QPM Qty: 9 RF: 6 acetaminophen 325 mg capsule 650 mg PO Q6H PRN (Reason: pain) Qty: 20 RF: 0 metoprolol succinate 100 mg tablet extended release 24 hr 100 mg PO DAILY RF: 0 atorvastatin 80 mg tablet 80 mg PO DAILY RF: 0 mecobalamin (vitamin B12) 1,000 mcg tablet,chewable 1,000 mcg PO DAILY RF: 0 isosorbide mononitrate 30 mg tablet extended release 24 hr 30 mg PO QAM RF: 0 lisinopril 40 mg tablet 40 mg PO DAILY RF: 0 loratadine 10 mg tablet 10 mg PO DAILY RF: 0 aspirin [Adult Low Dose Aspirin] 81 mg tablet,delayed release (DR/EC) 81 mg PO DAILY RF: 0 omeprazole 40 mg capsule,delayed release(DR/EC) 40 mg PO DAILY RF: 0 metformin 500 mg tablet extended release 24 hr 1,000 mg PO BID RF: 0 gabapentin 100 mg capsule 100 mg PO DAILY RF: 0 amlodipine 10 mg tablet 10 mg PO DAILY RF: 0 insulin aspart U-100 [Novolog Flexpen U-100 Insulin] 100 unit/mL (3 mL) insulin pen 6 - 10 unit subcut TID RF: 0 Trulicity 0.75 mg/0.5 mL pen injector 0.75 mg subcut QWEEK Qty: 2 RF: 4 Referrals: Dallas Butler MD [Primary Care Provider] - 2 days Stand Alone Forms: Work/School Release
[2021-05-10 16:13] LABS: COVID-19 Test Positive (Negative)
[2021-05-10 16:15] LABS: Alanine Aminotransferase 17 U/L (0-31); Albumin Level 4.3 g/dL (3.5-5.0); Alkaline Phosphatase 80 U/L (39-117); Anion Gap 13 (12-20); Aspartate Amino Transferase 15 U/L (5-31); Bilirubin Direct 0.5 mg/dL (0.0-0.5); Bilirubin Total 1.5 mg/dL (0.0-1.0); Blood Urea Nitrogen 7 mg/dL (9-16); Calcium 10.4 mg/dL (8.4-10.2); Carbon Dioxide 30 mmol/L (22-29); Chloride 101 mmol/L (96-108); Creatinine Clr Calc Pharmacy 115.5; Estimated Glomerular Filt Rate > 60; Glucose Random 91 mg/dL (60-115); Potassium 3.9 mmol/L (3.3-5.1); Sodium 140 mmol/L (135-145); Total Protein 7.7 g/dL (6.5-8.0)
[2021-05-10 16:26] LABS: Troponin-I High Sensitivity 50.6 ng/L (<3.5-17.0)
[2021-05-10] MEDS: Aspirin 81 MG TAB.CHEW 324 MG PO (16:45)
[2021-05-10] MEDS: ondansetron HCL 4 MG/2 ML VIAL IVPUSH (17:47)
[2021-05-10] MEDS: 0.9 % Sodium Chloride 1,000 ML 999 ML IV (17:47)
[2021-05-10] MEDS: amLODIPine Besylate 10 MG TABLET PO (17:47)
[2021-05-10] MEDS: lisinopriL 40 MG TABLET PO (17:48)
[2021-05-10 19:46] LABS: Troponin-I High Sensitivity 54.4 ng/L (<3.5-17.0)
== END 2021-05-10 21:30 | disposition home or self-care (01) ==
PROVIDERS: Physician Assistant; Emergency Provider Emergency Medicine; PCP Internal Medicine
DX: U07.1 COVID-19 (principal); M25.532 Pain in left wrist; M25.522 Pain in left elbow; R07.89 Other chest pain; R51.9 Headache, unspecified; E11.9 Type 2 diabetes mellitus without complications; I10 Essential (primary) hypertension; J45.909 Unspecified asthma, uncomplicated; Z86.73 Personal history of transient ischemic attack (TIA), and cerebral infarction without residual deficits; I25.2 Old myocardial infarction; Z91.81 History of falling
CPT/HCPCS: 36415; 70450; 73080; 73110; 73130; 80048; 80076; 84484; 85025; 87635; 93005; 96361; 96374; 99285; J2405

== ENCOUNTER → 2021-06-13 09:50 | Outpatient (BNVA) | payer MEDICAID, SELFPAY | PROVIDERS: PCP Internal Medicine; Visit Provider Registered Nurse Diabetes Educator | DX: E11.9 Type 2 diabetes mellitus without complications (principal); Z71.89 Other specified counseling | CPT/HCPCS: 99211 ==

== ENCOUNTER → 2021-06-16 12:48 | Outpatient (BNVA) | payer MEDICAID, SELFPAY | PROVIDERS: PCP Internal Medicine; Visit Provider Nurse Practitioner Gerontology | DX: E11.65 Type 2 diabetes mellitus with hyperglycemia (principal); E11.42 Type 2 diabetes mellitus with diabetic polyneuropathy; I10 Essential (primary) hypertension; E78.5 Hyperlipidemia, unspecified; E66.3 Overweight; Z68.26 Body mass index [BMI] 26.0-26.9, adult; Z79.4 Long term (current) use of insulin | CPT/HCPCS: 82947; 83036; 99212 ==

== ENCOUNTER → 2021-07-11 10:41 | Outpatient (BNVA) | payer MEDICAID, SELFPAY | PROVIDERS: PCP Internal Medicine; Visit Provider Registered Nurse Diabetes Educator | DX: E11.9 Type 2 diabetes mellitus without complications (principal) | CPT/HCPCS: 99211 ==

== ENCOUNTER 2021-07-18 11:20 | Outpatient (REF) | payer MEDICAID, SELFPAY | END 2021-07-18 11:21 | disposition home or self-care (01) | LOC: HO.LAB 11:20 | PROVIDERS: PCP Internal Medicine; Visit Provider Nurse Practitioner Gerontology | DX: Z13.89 Encounter for screening for other disorder (principal) ==

== ENCOUNTER 2021-12-16 12:55 | Outpatient (REF) | payer MEDICAID, SELFPAY ==
--- NOTE | ~2021-12-16 | XR_ITS ---
EXAMINATION: XR ABDOMEN KUB CLINICAL INDICATION: Constipation COMPARISON: None TECHNIQUE: AP view of the abdomen. FINDINGS: There is moderate stool in the proximal colon. There are no dilated loops of bowel to suggest obstruction. There is no evidence of free air. No suspicious calcifications. Post cholecystectomy. Degenerative changes of the spine and hip joints. XR/XR KUB IMPRESSION: Moderate amount of stool in the proximal colon. No evidence of obstruction.
[2021-12-16 14:16] LABS: Lipase 20 U/L (8-78)
[2021-12-16 14:39] LABS: TSH reflex Free T4 0.76 uIU/mL (0.32-4.0)
[2021-12-16 14:51] LABS: Folate 6.2 ng/mL (> or = 4.0); Vitamin B12 783 pg/mL (200-900)
[2021-12-21 15:02] LABS: Vitamin D 25-OH, D2 <4 ng/mL; Vitamin D 25-OH, D3 35 ng/mL; Vitamin D 25-OH, Total 35 ng/mL (30-100)
== END 2021-12-16 12:56 | disposition home or self-care (01) ==
LOC: HO.XRAY 12:55
PROVIDERS: PCP Internal Medicine; Visit Provider Nurse Practitioner Family
DX: R10.9 Unspecified abdominal pain (principal); R14.0 Abdominal distension (gaseous); R19.7 Diarrhea, unspecified; K59.00 Constipation, unspecified; E55.9 Vitamin D deficiency, unspecified
CPT/HCPCS: 36415; 74018; 82306; 82607; 82746; 83690; 84443; 99202; 99212

== ENCOUNTER 2021-12-24 11:03 | Emergency (ER) | payer MEDICAID, SELFPAY ==
--- NOTE | ~2021-12-24 | CT_ITS ---
EXAMINATION: CT HEAD WITHOUT CONTRAST CT CERVICAL SPINE WITHOUT CONTRAST CLINICAL INFORMATION: Fall. Bleed. Fracture. COMPARISON: CT head from 05/10/2021. TECHNIQUE: Contiguous axial imaging was performed from the skull base to vertex without intravenous administration of contrast. Contiguous axial imaging was performed from the upper chest through the skull base without intravenous administration of contrast. Coronal and sagittal reformats were obtained at the acquisition workstation. This CT examination was performed using dose optimization techniques as appropriate, variously including the following: *Automated exposure control. *Adjustment of mA and/or kV according to patient size (this includes techniques or standardized protocols for targeted exams where dose is matched to indication/reason for exam; i.e. extremities or head). *Use of iterative reconstruction technique. DLP: 955 mGy-cm FINDINGS: Head: There is no evidence of acute intracranial hemorrhage or edematous territorial infarction. There is no abnormal attenuation within the brain parenchyma. Millan-white matter differentiation is preserved. The ventricles are normal in size and configuration. No evidence for obstructive hydrocephalus. No abnormal mass effect or midline shift. No extra-axial fluid collections. No acute soft tissue or osseous abnormalities. Mild mucosal thickening of the paranasal sinuses. The mastoid air cells and middle ear cavities are clear. Left-sided lens extraction. Cervical Spine: The atlantooccipital and atlantoaxial articulations remain well aligned. Straightening of the normal cervical lordosis. Otherwise, there is anatomic alignment of the vertebral bodies and posterior elements. No evidence of acute fracture or subluxation. The vertebral body heights are maintained. Mild to moderate degenerative disc disease from C4-C7. There is no prevertebral soft tissue swelling. The thyroid gland and remaining cervical soft tissues are normal in appearance. The lung apices demonstrate no abnormalities. CT/CT cervical spine wo con IMPRESSION: 1. No acute intracranial abnormalities. No evidence of acute intracranial hemorrhage or edematous territorial infarction. 2. No evidence of acute fracture or traumatic subluxation of the cervical spine. Mild degenerative spondyloarthropathy of the cervical spine.
--- NOTE | ~2021-12-24 | XR_ITS ---
EXAMINATION: XR THORACIC SPINE XR RIGHT HEMITHORACIC RIBS. CLINICAL INFORMATION: Status post injury, fell on stairs. COMPARISON: Chest done on 03/29/2021. TECHNIQUE: 2 views of the thoracic spine and 3 views of the right hemithoracic ribs and frontal view of the chest were obtained. The site of the right hemithoracic lower pain as was pointed out with the patient was marked with a cutaneous BB marker. FINDINGS: Thoracic spine: The heights, and alignments of the thoracic vertebrae are normal. Endplate osteophyte formations, consistent with multilevel mild degenerative spondylosis related changes are noted throughout the entire thoracic spine. The posterior appendages are intact. The paraspinal soft tissues are unremarkable. Right hemithoracic RIBS: Minimally displaced fracture of posterolateral aspect of the right eighth rib is seen. No evidence of any hemopneumothorax or lung contusion. Cardiac mediastinal silhouette is within normal limit. XR/XR ribs RT min 3V w CXR1V IMPRESSION: 1. No radiographic evidence of any thoracic spine compression fracture. Incidental note is made of mild multilevel degenerative spondylosis. 2. Minimally displaced fracture involving posterolateral aspect of the right eighth rib without any radiographic evidence of superimposed hemopneumothorax or lung contusion.
--- NOTE | ~2021-12-24 | XR_ITS ---
EXAMINATION: XR THORACIC SPINE XR RIGHT HEMITHORACIC RIBS. CLINICAL INFORMATION: Status post injury, fell on stairs. COMPARISON: Chest done on 03/29/2021. TECHNIQUE: 2 views of the thoracic spine and 3 views of the right hemithoracic ribs and frontal view of the chest were obtained. The site of the right hemithoracic lower pain as was pointed out with the patient was marked with a cutaneous BB marker. FINDINGS: Thoracic spine: The heights, and alignments of the thoracic vertebrae are normal. Endplate osteophyte formations, consistent with multilevel mild degenerative spondylosis related changes are noted throughout the entire thoracic spine. The posterior appendages are intact. The paraspinal soft tissues are unremarkable. Right hemithoracic RIBS: Minimally displaced fracture of posterolateral aspect of the right eighth rib is seen. No evidence of any hemopneumothorax or lung contusion. Cardiac mediastinal silhouette is within normal limit. XR/XR thoracic spine 3V IMPRESSION: 1. No radiographic evidence of any thoracic spine compression fracture. Incidental note is made of mild multilevel degenerative spondylosis. 2. Minimally displaced fracture involving posterolateral aspect of the right eighth rib without any radiographic evidence of superimposed hemopneumothorax or lung contusion.
[2021-12-24 11:18] VITALS: BP 126/86; BP 166/82; PULSE 59; PULSE 78; RESP 16; TEMP 36.7; O2SAT 98; O2SAT 99; BMI 25.7
--- NOTE | 2021-12-24 11:45 | ED.FALL ---
HPI - Fall General Chief Complaint: Fall Stated Complaint: Fall, 02/20 LOW BACK PAIN Time Seen by Provider: 12/24/21 11:36 History of Present Illness HPI Narrative: Patient complains of neck pain back pain mostly on the right upper back, right rib pain after a fall down several stairs yesterday She complains of a mild headache and did hit her head but had no loss of consciousness no retrograde amnesia no vomiting no vision changes no confusion The neck does hurt but there is no numbness weakness or tingling no radiation of the pain Her right lateral and posterior rib area hurts as well as the upper back in that area but she has no difficulty breathing Related Data Home Medications Medication Instructions Recorded Confirmed amlodipine 10 mg tablet 10 mg PO DAILY 02/10/21 06/16/21 aspirin 81 mg tablet,delayed 81 mg PO DAILY 02/10/21 02/10/21 release (Adult Low Dose Aspirin) atorvastatin 80 mg tablet 80 mg PO DAILY 02/10/21 02/10/21 gabapentin 100 mg capsule 100 mg PO DAILY 02/10/21 02/10/21 isosorbide mononitrate 30 mg 30 mg PO QAM 02/10/21 02/10/21 tablet,extended release 24 hr lisinopril 40 mg tablet 40 mg PO DAILY 02/10/21 02/10/21 loratadine 10 mg tablet 10 mg PO DAILY 02/10/21 02/10/21 mecobalamin (vitamin B12) 1,000 1,000 mcg PO DAILY 02/10/21 02/10/21 mcg chewable tablet metformin 500 mg tablet,extended 1,000 mg PO BID 02/10/21 06/16/21 release 24 hr metoprolol succinate 100 mg 100 mg PO DAILY 02/10/21 02/10/21 tablet,extended release 24 hr omeprazole 40 mg capsule,delayed 40 mg PO DAILY 02/10/21 02/10/21 release Previous Rx's Medication Instructions Recorded acetaminophen 325 mg capsule 650 mg PO Q6H PRN pain #20 caps 01/14/21 ondansetron 4 mg disintegrating 4 mg PO ONCE PRN nausea and 05/10/21 tablet vomiting #10 tabs dulaglutide 1.5 mg/0.5 mL 1.5 mg (0.5 mL) subcut QWEEK 28 06/16/21 subcutaneous pen injector days #2 mL (Trulicity) insulin aspart U-100 100 unit/mL See Rx Instructions subcut TID #15 06/16/21 (3 mL) subcutaneous pen (Novolog mL Flexpen U-100 Insulin aspart) insulin degludec 200 unit/mL (3 50 unit (0.25 mL) subcut QPM #9 mL 06/16/21 mL) subcutaneous pen (Tresiba FlexTouch U-200 insulin) docusate sodium 100 mg capsule 100 mg PO BEDTIME #90 caps 12/16/21 methylcellulose (laxative) 500 mg 500 mg PO DAILY #90 tabs 12/16/21 tablet (Citrucel) sennosides 8.6 mg tablet (Natural 8.6 mg PO BEDTIME constipation #90 12/16/21 Senna Laxative) tabs ibuprofen 600 mg tablet 600 mg PO Q6H PRN pain #20 tabs 12/24/21 oxycodone 5 mg tablet 5 mg PO Q6H PRN pain #10 tabs 12/24/21 Allergies Allergy/AdvReac Type Severity Reaction Status Date / Time morphine [MORPHINE] Allergy Intermediate ITCHY, RASH Verified 12/16/21 12:15 Review of Systems Review of Systems: Positive for headache neck pain upper back pain and right rib pain after a fall Negatives no syncope no fainting no worsening headache no retrograde amnesia no nausea or vomiting no vision changes no numbness weakness or tingling no abdominal pain no nausea or vomiting no extremity injuries Yes all other systems are reviewed and are negative PMFSH Past Medical History Source: nursing notes reviewed Medical History Asthma Depression DM2 (diabetes mellitus, type 2) History of CVA (cerebrovascular accident) HLD (hyperlipidemia) Hypertension Myocardial infarction Overweight Type 2 diabetes mellitus with diabetic polyneuropathy Surgical History Hx of section Hx of cholecystectomy Family History Family History Father No problems noted. Mother No problems noted. Social History Social History Household Members: Significant Other Alcohol intake: never Patient Tobacco Use Status: Former Tobacco user Advance Directives: No Advance Directives Information Provided: No Physical Exam Vital Signs: Vital Signs: Last Vital Signs Temp 98.1 F 12/24/21 11:18 Pulse 78 12/24/21 11:18 Resp 16 12/24/21 11:18 BP 166/82 H 12/24/21 11:18 Pulse Ox 98 12/24/21 11:18 O2 Del Method 12/24/21 11:18 BMI result Body Mass Index 25.7 General appearance no acute distress Head is normocephalic atraumatic The ears no hemotympanum The eyes pupils are reactive to light extraocular motions are intact The facial bones no tenderness full range of motion in the mandible The neck had diffuse mild posterior tenderness no focal bony tenderness The chest is clear to auscultation with full symmetric equal breath sounds, there was tenderness to the right lateral and posterior chest wall Abdomen soft nontender Extremities full range of motion x4 without tenderness swelling or deformity The back exam the right upper back had tenderness, no deformity, skin was normal in appearance Neuro no gross focal deficits, gait and balance are normal, motor is 5/5 x4, patient's A&O x3 Course Course Course Narrative: CT head and neck were negative Right rib x-ray did show a fracture minimally displaced a posterolateral aspect of right 8th rib there is no pneumothorax or lung contusion X-ray of thoracic spine did not show any fractures or compression fractures Patient ambulates easily, breathing comfortably, stable throughout visit and is discharged with prescription for analgesics and follow with her doctor MDM - Fall Lab Data Labs: Lab Results 12/24/21 Range/Units 11:50 POC Glucose 97 (60-115) mg/dL Discharge Plan Discharge Clinical Impression: Closed rib fracture, Back pain, Fall Patient Disposition: Home, Self-Care Additional Instructions: CT of head and neck were normal no broken neck or bleed in the head X-rays of her upper back and ribs showed that you have 1 broken rib in the area of your pain This will get better on its own usually within several weeks but in the meantime I will write you for pain medicine Follow with your doctor if you need any further prescriptions or treatment, Return to the ER any time for difficulty breathing severe pain any worse condition or any concerns Prescriptions: New oxycodone 5 mg tablet 5 mg PO Q6H PRN (Reason: pain) Qty: 10 0RF Rx Instructions: Partial Fill upon patient request. This medication causes drowsiness so no driving for 8 hours after taking ibuprofen 600 mg tablet 600 mg PO Q6H PRN (Reason: pain) Qty: 20 0RF No Action Trulicity 1.5 mg/0.5 mL pen injector 1.5 mg subcut QWEEK 28 Days Qty: 2 6RF acetaminophen 325 mg capsule 650 mg PO Q6H PRN (Reason: pain) Qty: 20 0RF ondansetron 4 mg tablet,disintegrating 4 mg PO ONCE PRN (Reason: nausea and vomiting) Qty: 10 0RF metoprolol succinate 100 mg tablet extended release 24 hr 100 mg PO DAILY atorvastatin 80 mg tablet 80 mg PO DAILY mecobalamin (vitamin B12) 1,000 mcg tablet,chewable 1,000 mcg PO DAILY isosorbide mononitrate 30 mg tablet extended release 24 hr 30 mg PO QAM lisinopril 40 mg tablet 40 mg PO DAILY loratadine 10 mg tablet 10 mg PO DAILY aspirin [Adult Low Dose Aspirin] 81 mg tablet,delayed release (DR/EC) 81 mg PO DAILY omeprazole 40 mg capsule,delayed release(DR/EC) 40 mg PO DAILY metformin 500 mg tablet extended release 24 hr 1,000 mg PO BID gabapentin 100 mg capsule 100 mg PO DAILY amlodipine 10 mg tablet 10 mg PO DAILY docusate sodium 100 mg capsule 100 mg PO BEDTIME Qty: 90 3RF Citrucel 500 mg tablet 500 mg PO DAILY Qty: 90 2RF Rx Instructions: take it with full glass of water sennosides [Natural Senna Laxative] 8.6 mg tablet 8.6 mg PO BEDTIME Qty: 90 3RF Tresiba FlexTouch U-200 200 unit/mL (3 mL) insulin pen 50 unit subcut QPM Qty: 9 6RF insulin aspart U-100 [Novolog Flexpen U-100 Insulin] 100 unit/mL (3 mL) insulin pen See Rx Instructions subcut TID Qty: 15 6RF Rx Instructions: 6 units for breakfast, 6 units for lunch and 10 units. subcut 3 times a day; Interventions: ED Discharge Assessment Last Done: 12/24/21 15:33 Discharge Date/Time: 12/24/21 15:34
[2021-12-24 11:54] LABS: Glucose, Whole Blood 97 mg/dL (60-115)
== END 2021-12-24 15:34 | disposition home or self-care (01) ==
PROVIDERS: Emergency Provider Student in an Organized Health Care Education/Training Program; PCP Internal Medicine
DX: S22.31XA Fracture of one rib, right side, initial encounter for closed fracture (principal); W10.8XXA Fall (on) (from) other stairs and steps, initial encounter; M54.6 Pain in thoracic spine; R51.9 Headache, unspecified; Y93.9 Activity, unspecified; Y92.9 Unspecified place or not applicable; Y99.9 Unspecified external cause status
CPT/HCPCS: 70450; 71101; 72072; 72125; 82947; 99283; 99284

== ENCOUNTER 2022-01-28 10:02 | Outpatient (REF) | payer MEDICAID, SELFPAY ==
--- NOTE | ~2022-01-28 | MM_ITS ---
EXAMINATION: MM SCREENING DIGITAL BREAST TOMOSYNTHESIS, BILATERAL CLINICAL INFORMATION: Screening. Asymptomatic. The lifetime risk of breast cancer based on the Tyrer-Cuzick Model is 7%. COMPARISON: Mammography: 01/02/2017, 12/07/2015 TECHNIQUE: Digital breast tomosynthesis is performed in both the craniocaudal and mediolateral oblique views along with computer-aided detection (CAD). Synthesized 2D images are generated from the tomosynthesis. Additional left MLO view is provided. FINDINGS: There are scattered areas of fibroglandular density (ACR BI-RADS breast composition Category b). There are no significant masses, abnormal calcifications, or other abnormalities. Parenchymal pattern is similar to prior studies. There is no developing density or architectural abnormality. The axilla and skin contours are unremarkable. No significant changes. MM/MM tomosynthesis screening BI IMPRESSION: No mammographic evidence of malignancy. ASSESSMENT: BI-RADS 1: Negative RECOMMENDATION: Routine annual mammography screening. This patient's information was entered into a reminder system with a target due date for their next mammogram.
== END 2022-01-28 10:03 | disposition home or self-care (01) ==
LOC: HO.MAMMO 10:02
PROVIDERS: PCP Internal Medicine; Visit Provider Internal Medicine
DX: Z12.31 Encounter for screening mammogram for malignant neoplasm of breast (principal)
CPT/HCPCS: 77063; 77067

== ENCOUNTER 2022-02-08 11:58 | Outpatient (REF) | payer MEDICAID, SELFPAY ==
--- NOTE | ~2022-02-08 | XR_ITS ---
EXAMINATION: XR CHEST CLINICAL INFORMATION: Cough COMPARISON: 12/24/2021 TECHNIQUE: 2 views of the chest were obtained. FINDINGS: The lungs are well expanded. There is no focal consolidation, edema, or effusion. No pneumothorax. The cardiomediastinal silhouette is within normal limits. No acute osseous abnormality. XR/XR chest 2V IMPRESSION: No acute pulmonary finding.
[2022-02-08 12:40] LABS: Hematocrit 37.7 % (37.0-47.0); Hemoglobin 12.2 g/dl (12.0-16.0); Mean Corpuscular HGB Conc 32.4 g/dl (31.0-35.0); Mean Corpuscular Hemoglobin 27.3 pg (27.0-33.0); Mean Corpuscular Volume 84.3 fL (80.0-98.0); Mean Platelet Volume 9.7 fL (9.4-12.3); Platelet Count 356 X10*3/uL (160-400); Red Blood Count 4.47 X10*6/uL (4.20-5.50); Red Cell Distribution Width 13.4 % (11.0-16.0); White Blood Count 13.4 X10*3/uL (4.8-10.8)
[2022-02-08 13:13] LABS: Alanine Aminotransferase 18 U/L (0-31); Alkaline Phosphatase 87 U/L (39-117); Anion Gap 13 (12-20); Aspartate Amino Transferase 16 U/L (5-31); Bilirubin Total 1.9 mg/dL (0.0-1.0); Blood Urea Nitrogen 11 mg/dL (9-16); Calcium 9.5 mg/dL (8.4-10.2); Carbon Dioxide 27 mmol/L (22-29); Chloride 101 mmol/L (96-108); Cholesterol 108 mg/dL; Estimated Glomerular Filt Rate > 60; Glucose Fasting 78 mg/dL (60-99); HDL Cholesterol 39 mg/dL; LDL Cholesterol Calculated 56 mg/dl; Potassium 4.4 mmol/L (3.3-5.1); Sodium 137 mmol/L (135-145); Triglycerides 66 mg/dL
[2022-02-08 13:36] LABS: Thyroid Stimulating Hormone 0.59 uIU/mL (0.32-4.0)
[2022-02-08 13:38] LABS: Free T4 (Free Thyroxine) 1.07 ng/dL (0.71-1.85)
[2022-02-08 13:44] LABS: Creatinine Urine 57.23 mg/dL; Microalbumin Urine < 5.0 mg/L
[2022-02-10 10:15] LABS: LDL Cholesterol Direct 60 mg/dL (<100)
== END 2022-02-08 11:59 | disposition home or self-care (01) ==
LOC: HO.LAB 11:58
PROVIDERS: Nurse Practitioner Gerontology; Absent Provider Nurse Practitioner Family; PCP Internal Medicine; Visit Provider Nurse Practitioner Primary Care
DX: K21.9 Gastro-esophageal reflux disease without esophagitis (principal); E11.42 Type 2 diabetes mellitus with diabetic polyneuropathy; R05.9 Cough, unspecified
CPT/HCPCS: 36415; 71046; 80053; 80061; 82043; 83721; 84439; 84443; 85027; 99212

== ENCOUNTER 2022-02-23 07:02 | Outpatient (REF) | payer MEDICAID, SELFPAY ==
--- NOTE | ~2022-02-23 | CT_ITS ---
EXAMINATION: CT ABDOMEN AND PELVIS WITH CONTRAST CLINICAL INFORMATION: Abdominal pain. COMPARISON: None. TECHNIQUE: Multidetector volumetric images were obtained from the superior aspect of the liver through the pubic symphysis following administration 85 mL of Omnipaque 350 intravenous contrast. Sagittal and coronal reformatted images were obtained on the technologist's workstation. Oral contrast: No This CT examination was performed using dose optimization techniques as appropriate, variously including the following: *Automated exposure control *Adjustment of mA and/or kV according to patient size (this includes techniques or standardized protocols for targeted exams where dose is matched to indication/reason for exam; i.e. extremities or head) *Use of iterative reconstruction technique DLP: 297 mGy-cm. FINDINGS: LUNG BASES: Minimal atelectatic changes seen in and bilateral lung bases. The heart size is normal. LIVER, GALLBLADDER, AND BILIARY TREE: The liver is normal in size, shape, and attenuation. No focal hepatic lesion or biliary ductal dilatation is present. The gallbladder has been surgically removed. The CBD is dilated the proximal segment measuring 2.4 cm and the distal segment measuring 1.1 cm. No focal radiopaque stone or lesion seen in the CBD. PANCREAS: Unremarkable. SPLEEN: Unremarkable. ADRENAL GLANDS: 6 mm enhancing nodule is seen in the left adrenal gland on axial image 21/3. No other focal lesion seen. KIDNEYS AND URETERS: The kidneys are normal in size, shape, and attenuation. No hydronephrosis, hydroureter, or calculi seen. No perinephric stranding. BLADDER: There is diffuse bladder wall thickening. GASTROINTESTINAL TRACT: There is moderate stool seen in the colon without significant distention. The small bowel loops are normal caliber. Appendix is normal caliber. No inflammatory process, free air or free fluid seen. ABDOMINAL WALL: No significant hernia is appreciated. LYMPH NODES: Normal. VASCULAR: Unremarkable. PELVIC VISCERA:. There is no adnexal mass or free fluid seen. There are multiple phleboliths. No abnormal pelvic or inguinal lymph nodes seen. OSSEOUS STRUCTURES: No lytic or sclerotic process seen. There is L1-L2 central disc calcification. CT/CT abdomen pelvis w IV con IMPRESSION: Mild constipation. No acute intra-abdominal process seen. Bibasilar atelectatic changes. Prominent common bile duct without stones or obstructive lesion. Fleischner guidelines were followed.
[2022-02-23] MEDS: iohexoL 350 MG/ML 100 ML INFUS..BTL IV (09:08)
== END 2022-02-23 07:03 | disposition home or self-care (01) ==
LOC: HO.CT 07:02
PROVIDERS: PCP Internal Medicine; Visit Provider Nurse Practitioner Family
DX: R10.9 Unspecified abdominal pain (principal)
CPT/HCPCS: 74177; Q9967

== ENCOUNTER 2022-02-24 12:06 | Outpatient (REF) | payer MEDICAID, SELFPAY ==
[2022-03-05 20:37] LABS: Pancreatic Elastase-1 >500 mcg/g
== END 2022-02-24 12:07 | disposition home or self-care (01) ==
LOC: HO.LNP 12:06
PROVIDERS: Visit Provider Nurse Practitioner Family
DX: R10.9 Unspecified abdominal pain (principal); K21.9 Gastro-esophageal reflux disease without esophagitis
CPT/HCPCS: 82656; 87338

== ENCOUNTER 2022-02-25 17:49 | Emergency (ER) | payer MEDICAID, SELFPAY ==
--- NOTE | ~2022-02-25 | XR_ITS ---
EXAMINATION: RIGHT HAND 3 VIEWS RIGHT SHOULDER 3 VIEWS RIGHT FOREARM 2 VIEWS LEFT KNEE 4 VIEWS RIGHT KNEE 4 VIEWS CLINICAL INFORMATION: Pain status post fall COMPARISON: None TECHNIQUE: As above FINDINGS: No deformity within the right wrist. Scaphoid intact. The phi seal spur changes about the radial metaphysis. Extensive calcific tendinitis right shoulder. No fracture dislocation. Mild generalized spurring. No deformity involving the right forearm. Radial head neck intact grossly. Bilateral knee imaging images no effusion on either side. Tibial plateaus and patellas intact. No deformity. XR/XR hand wrist RT IMPRESSION: No fracture.
--- NOTE | ~2022-02-25 | XR_ITS ---
EXAMINATION: RIGHT HAND 3 VIEWS RIGHT SHOULDER 3 VIEWS RIGHT FOREARM 2 VIEWS LEFT KNEE 4 VIEWS RIGHT KNEE 4 VIEWS CLINICAL INFORMATION: Pain status post fall COMPARISON: None TECHNIQUE: As above FINDINGS: No deformity within the right wrist. Scaphoid intact. The phi seal spur changes about the radial metaphysis. Extensive calcific tendinitis right shoulder. No fracture dislocation. Mild generalized spurring. No deformity involving the right forearm. Radial head neck intact grossly. Bilateral knee imaging images no effusion on either side. Tibial plateaus and patellas intact. No deformity. XR/XR shoulder RT min 2V IMPRESSION: No fracture.
--- NOTE | ~2022-02-25 | XR_ITS ---
EXAMINATION: RIGHT HAND 3 VIEWS RIGHT SHOULDER 3 VIEWS RIGHT FOREARM 2 VIEWS LEFT KNEE 4 VIEWS RIGHT KNEE 4 VIEWS CLINICAL INFORMATION: Pain status post fall COMPARISON: None TECHNIQUE: As above FINDINGS: No deformity within the right wrist. Scaphoid intact. The phi seal spur changes about the radial metaphysis. Extensive calcific tendinitis right shoulder. No fracture dislocation. Mild generalized spurring. No deformity involving the right forearm. Radial head neck intact grossly. Bilateral knee imaging images no effusion on either side. Tibial plateaus and patellas intact. No deformity. XR/XR knee LT 3V IMPRESSION: No fracture.
--- NOTE | ~2022-02-25 | XR_ITS ---
EXAMINATION: RIGHT HAND 3 VIEWS RIGHT SHOULDER 3 VIEWS RIGHT FOREARM 2 VIEWS LEFT KNEE 4 VIEWS RIGHT KNEE 4 VIEWS CLINICAL INFORMATION: Pain status post fall COMPARISON: None TECHNIQUE: As above FINDINGS: No deformity within the right wrist. Scaphoid intact. The phi seal spur changes about the radial metaphysis. Extensive calcific tendinitis right shoulder. No fracture dislocation. Mild generalized spurring. No deformity involving the right forearm. Radial head neck intact grossly. Bilateral knee imaging images no effusion on either side. Tibial plateaus and patellas intact. No deformity. XR/XR forearm RT 2V IMPRESSION: No fracture.
--- NOTE | ~2022-02-25 | XR_ITS ---
EXAMINATION: RIGHT HAND 3 VIEWS RIGHT SHOULDER 3 VIEWS RIGHT FOREARM 2 VIEWS LEFT KNEE 4 VIEWS RIGHT KNEE 4 VIEWS CLINICAL INFORMATION: Pain status post fall COMPARISON: None TECHNIQUE: As above FINDINGS: No deformity within the right wrist. Scaphoid intact. The phi seal spur changes about the radial metaphysis. Extensive calcific tendinitis right shoulder. No fracture dislocation. Mild generalized spurring. No deformity involving the right forearm. Radial head neck intact grossly. Bilateral knee imaging images no effusion on either side. Tibial plateaus and patellas intact. No deformity. XR/XR knee RT 3V IMPRESSION: No fracture.
[2022-02-25 17:51] VITALS: BP 138/66; PULSE 83; RESP 18; TEMP 36.4; O2SAT 97; BMI 24.3
--- OUTSIDE RECORDS SUMMARY | 2022-02-25 18:53 | XMS_ITS | Continuity of Care Document ---
:1965 Author Organization [facility] Address [address] [place] [id number]- Care Team Providers Name Role Phone Dallas Butlre MD Primary Care Physician Encounter [facility] Date(s): 04/29/19 - 04/29/[address] [address]- [facility] Encounter Diagnosis Headache (Final) - 04/29/19 Gait instability (Final) - 04/29/19 Discharge Disposition: A-D/C Home Attending Physician: Jeramy Hyatt MD Admitting Physician: Jeramy Hyatt MD Referring Physician: Not on Staff, Referring MD Allergies, Adverse Reactions, Alerts Substance Reaction Severity Status morphine Active Contrast Dye Active Results Radiology Reports Exam Date Time Procedure Performing Provider Status 04/29/19 1:10 PM Chest Portable Dagmar Cuevas; Jabier (Ve rified) Notes:(Chest Portable) Reason For Exam: Pain;Other:RESULT: Chest Portable Chest Portable Reason: Other:; Pain; Clinical Question(s): Other:; Fracture, pneumothorax, pulmonary contusion COMPARISON: None. FINDINGS: LINES AND TUBES: EKG leads and cholecystectomy clips. LUNGS AND PLEURA: Clear lungs. Normal pulmonary vascularity. No pleural effusion. No pneumothorax. HEART, MEDIASTINUM AND JESSICA: The cardiac silhouette is mildly pronounced in size, but this is likely exaggerated by shallow inspiration and AP technique. Normal mediastinal and hilar contour. BONES AND SOFT TISSUES: No acute abnormality. IMPRESSION: No acute abnormality. WSN: [id number] Dictated By: Bryan Loving MD Dictated Date/Time: 04/29/19 1:17 pm Reviewed By: Bryan Loving MD Signed By: Bryan Loving MD Signed Date/Time: 04/29/19 1:17 pm Transcribed By: KEARA Transcribed Date/Time: 04/29/19 1:14 pm Vital Signs Most recent to oldest 1 2 3 [Reference Range]: Oxygen Saturation [94-100 %] 99 % 98 % 98 % (04/29/19 7:37 PM) (04/29/19 6:00 PM) (04/29/19 4:30 PM) Pulse Rate [55-90 bpm] 94 bpm 83 bpm 76 bpm *H* (04/29/19 6:00 PM) (04/29/19 4:3 0 PM) (04/29/19 7:37 PM) Blood Pressure [90-138/55-84 151/73 mm Hg 167/82 mm Hg 163 /78 mm Hg mm Hg] *H* *H* *H* (04/29/19 7:37 PM) (04/29/19 6:00 PM) (04/29/19 4:30 PM) Respiratory Rate [16-30 23 br/min 20 br/min 20 br/mi n br/min] (04/29/19 7:37 PM) (04/29/19 6:00 PM) (04/29/19 4:30 PM) Temperature [96.8-100.4 98.2 DegF DegF] (04/29/19 3:30 PM) Mode of Delivery (Oxygen) Room air Room air Room a ir (04/29/19 7:37 PM) (04/29/19 6:00 PM) (04/29/19 4:30 PM) Blood pressure sites Arm, right Arm, left (04/29/19 6:00 PM) (04/29/19 3:30 PM) Temperature Route Oral (04/29/19 3:30 PM)
--- NOTE | 2022-02-25 18:58 | ED_ITS ---
HPI - Fall General Chief Complaint: Fall Stated Complaint: fell arm and back pain Time Seen by Provider: 02/25/22 18:04 Source: patient Mode of arrival: ambulatory Limitations: no limitations (declined park interpreter ) History of Present Illness HPI Narrative: This is a 56-year-old female with a history of diabetes, diabetic polyneuropathy, hypertension, hyperlipidemia, CVA w/ speech difficulty at baseline presents with complaint of fall landing on her bilateral knees and catching herself with her right hand. Denies hitting her head or LOC. NO AC therapy use. Patient reports she has history of multiple falls. She has been having some left hip pain (prior to fall) and states she fell because her bilateral knees gave out on her and states I have bad knees. Pain in hip is worsened when walking up stairs and palpation. She has seen orthopedics in the past for her knee pain but not the hip. She lives with her boyfriend. No pre fall symptoms of dizziness, chest pain, palpitations, shortness of breath. Related Data Home Medications Medication Instructions Recorded Confirmed amlodipine 10 mg tablet 10 mg PO DAILY 02/10/21 06/16/21 aspirin 81 mg tablet,delayed 81 mg PO DAILY 02/10/21 02/10/21 release (Adult Low Dose Aspirin) atorvastatin 80 mg tablet 80 mg PO DAILY 02/10/21 02/10/21 gabapentin 100 mg capsule 100 mg PO DAILY 02/10/21 02/10/21 isosorbide mononitrate 30 mg 30 mg PO QAM 02/10/21 02/10/21 tablet,extended release 24 hr lisinopril 40 mg tablet 40 mg PO DAILY 02/10/21 02/10/21 loratadine 10 mg tablet 10 mg PO DAILY 02/10/21 02/10/21 mecobalamin (vitamin B12) 1,000 1,000 mcg PO DAILY 02/10/21 02/10/21 mcg chewable tablet metformin 500 mg tablet,extended 1,000 mg PO BID 02/10/21 06/16/21 release 24 hr metoprolol succinate 100 mg 100 mg PO DAILY 02/10/21 02/10/21 tablet,extended release 24 hr omeprazole 40 mg capsule,delayed 40 mg PO DAILY 02/10/21 02/10/21 release Previous Rx's Medication Instructions Recorded acetaminophen 325 mg capsule 650 mg PO Q6H PRN pain #20 caps 01/14/21 ondansetron 4 mg disintegrating 4 mg PO ONCE PRN nausea and 05/10/21 tablet vomiting #10 tabs dulaglutide 1.5 mg/0.5 mL 1.5 mg (0.5 mL) subcut QWEEK 28 06/16/21 subcutaneous pen injector days #2 mL (Trulicity) insulin aspart U-100 100 unit/mL See Rx Instructions subcut TID #15 06/16/21 (3 mL) subcutaneous pen (Novolog mL Flexpen U-100 Insulin aspart) insulin degludec 200 unit/mL (3 50 unit (0.25 mL) subcut QPM #9 mL 06/16/21 mL) subcutaneous pen (Tresiba FlexTouch U-200 insulin) docusate sodium 100 mg capsule 100 mg PO BEDTIME #90 caps 12/16/21 methylcellulose (laxative) 500 mg 500 mg PO DAILY #90 tabs 12/16/21 tablet (Citrucel) sennosides 8.6 mg tablet (Natural 8.6 mg PO BEDTIME constipation #90 12/16/21 Senna Laxative) tabs ibuprofen 600 mg tablet 600 mg PO Q6H PRN pain #20 tabs 12/24/21 oxycodone 5 mg tablet 5 mg PO Q6H PRN pain #10 tabs 12/24/21 wbttoj-mukvfton-imfugid 1 cap PO .qid ac #120 caps 02/08/22 6,000-19,000-30,000 unit capsule,delayed rel (Creon) Allergies Allergy/AdvReac Type Severity Reaction Status Date / Time morphine [MORPHINE] Allergy Intermediate ITCHY, RASH Verified 02/08/22 11:11 Review of Systems Review of Systems: Yes all other systems are reviewed and are negative Constitutional: Constitutional: Reports no additional constitutional complaints, Denies body ache(s), Denies chills, Denies fever(s), Denies headache(s) and Denies weakness Eyes: Eyes: Reports no additional eye complaints and Denies change in vision ENT: Reports system reviewed and no additional complaints, except as documented, Denies dizziness, Denies headache(s), Denies nasal congestion, Denies nasal discharge and Denies neck pain Cardiovascular: Cardiovascular: Reports no additional cardiovascular complaints, Denies chest pain, Denies leg edema and Denies dyspnea Respiratory: Respiratory: Reports no additional respiratory complaints, Denies cough and Denies dyspnea Gastrointestinal: Gastrointestinal: Reports no additional gastrointestinal complaints, Denies abdominal pain, Denies diarrhea, Denies nausea and Denies vomiting Genitourinary: Genitourinary: Reports no additional female genitourinary complaints and Denies urinary incontinence Musculoskeletal: Musculoskeletal: Reports no additional musculoskeletal complaints, Denies back pain, Reports arthralgias, Denies joint swelling, Denies neck pain, Denies numbness and Denies tingling Integumentary/Breasts: Skin/Breast: Reports system reviewed and no additional complaints, except as docu and Denies rash Neurologic: Reports system reviewed and no additional complaints, except as documented, Denies Abnormal speech present, Denies dizziness, Denies headache(s), Denies numbness, Denies tingling and Denies weakness PMFSH Past Medical History Attestation statement: The following information was validated with the patient. Source: old records reviewed and nursing notes reviewed Medical History Asthma Depression DM2 (diabetes mellitus, type 2) History of CVA (cerebrovascular accident) HLD (hyperlipidemia) Hypertension Myocardial infarction Overweight Type 2 diabetes mellitus with diabetic polyneuropathy Surgical History Hx of section Hx of cholecystectomy Family History Family History Father No problems noted. Mother No problems noted. Social History Social History Household Members: Significant Other Alcohol intake: never Patient Tobacco Use Status: Former Tobacco user Advance Directives: No Advance Directives Information Provided: No Physical Exam Vital Signs: Vital Signs: Last Vital Signs Temp 97.5 F 02/25/22 17:51 Pulse 83 02/25/22 17:51 Resp 18 02/25/22 17:51 BP 138/66 02/25/22 17:51 Pulse Ox 97 02/25/22 17:51 O2 Del Method 02/25/22 17:51 BMI result Body Mass Index 24.3 Const: General: cooperative, healthy appearing, comfortable and no acute distress Orientation/consciousness: patient oriented x3 Limitations: no limitations HEENT: Head: Yes normal to inspection Ears: hearing grossly normal bilaterally General nose exam: Normal external nose present Face and sinus: Yes normal facial exam Mouth: Normal oral and palatal mucosa present Throat: Yes posterior oropharynx normal Eyes: General: appearance normal, both eyes and all related structures Pupils: Equal, round and reactive pupils present Neck: Other: no midline tenderness/step offs or deformities Neck: Yes normal visual inspection Chest: Chest palpation & inspection: normal inspection of the chest Resp: Effort & Inspection: normal respiratory effort Auscultation: clear to auscultation bilaterally Cardio: Rate: regular rate Rhythm: regular rhythm Peripheral pulses: Peripheral pulses 2+ throughout GI: Inspection: Yes normal to inspection Palpation (GI): Soft to palpation and nontender Auscultation: normal bowel sounds Back/Spine/Pelvis: Thoracic/Lumbar Spine: thoracic and lumbar spine normal to inspection Skin: General skin exam: no rashes or lesions noted Neuro: General: patient oriented x3, moves all extremities, no focal motor deficits and normal sensation to monofilament Cranial nerves: Yes CN's II-XII intact bilaterally, Yes Equal, round and reactive pupils present, Yes Bilaterally intact EOM present, Yes Nystagmus not present, Yes Normal facial strength present and Yes Midline tongue present Cognition (Neuro): normal cognition Speech: No Abnormal speech present Gait exam (Neuro): Normal gait present Motor exam (neuro): 5/5 motor strength present throughout Sensory Exam: Normal double simultaneous stimulation for sensation Extrem: Other: Mild tenderness to palpation over the lateral left hip. Full range of motion of the hip with no difficulty. Abrasion to right anterior knee with mild tenderness. Flexion/extension is intact. NV intact distally. Tenderness to palpation to left anterior knee. Flexion/ extension is intact. Neurovascular intact distally. There is tenderness to the right wrist and at the base of the 3rd and 4th digits of the right hand. There is full range of motion. Mild swelling noted over the dorsal hand. Sensation is normal. No snuffbox tenderness. Patient does have some discomfort with flexion and extension of the wrist. Palpable radial and ulnar pulses. Elbow was normal. Mild tenderness the right proximal humerus but full range of motion. No obvious swelling or deformity. General: Yes normal to inspection, Yes no pedal edema and Yes no calf tenderness Course Course Course Narrative: X-ray show no bony abnormalities with exception of tendinitis in the right shoulder. Patient has some left hip pain which is not from this fall and has been chronic. She does have previous x-rays which show arthritis and she may also have a component of some bursitis. Patient also reports chronic knee pain and weakness which she has seen Orthopedics for. Recommended she follow-up with Orthopedics for both her knee and hip pain. Patient has had several falls at home which she contributes to her knees giving out on her. We did also discuss that physical therapy may be helpful and she can discuss this with her primary care doctor. She is here with family will bring her home and who is with her. Reviewed worrisome signs and symptoms of when to return to the emergency room. Comfortable plan for discharge home. MDM - Fall MDM Narrative Medical decision making narrative: 56-year-old female here with multiple orthopedic complaints after a fall which occurred when the patient had some discomfort and weakness in both of her knees. There was no head strike or loss of consciousness. There was no pre fall symptoms concerning for syncope. Patient has complaints of bilateral knee pain, right upper extremity pain from the fall. Will check x-rays. Additionally complaining of some left hip pain which has been going on for several weeks with no trauma or injury. On review of previous records patient has complained of this before. Previous x-rays which show arthritic changes. Patient does report history of falls and tells me this is secondary to her knees both giving out on her. She has seen Orthopedics for this and has had treatment. I recommended she follow back up with orthopedics for her chronic knee pain as well as for this left hip pain. A cortisone injection may be helpful. She may also have some help with physical therapy so recommended she speak to her primary care doctor about getting a referral for this Medical Records Attestation: I reviewed the patient's medical records. Lab Data Attestation: I reviewed the patient's lab results. Imaging Data bilateral knee x-rays: Attestation: I personally reviewed and interpreted this imaging study as florence carroll: Radiologist's impression: Bilateral knee imaging images no effusion on either side. Tibial plateaus and patellas intact. No deformity.? right hand/wrist x-ray: Attestation: I personally reviewed and interpreted this imaging study as follows: Radiologist's impression: FINDINGS: No deformity within the right wrist. Scaphoid intact. The phi seal spur changes about the radial metaphysis. right forearm x-ray: Attestation: I personally reviewed and interpreted this imaging study as follows: Radiologist's impression: No deformity involving the right forearm. Radial head neck intact grossly. shoulder right x-ray: Attestation: I personally reviewed and interpreted this imaging study as follows: Radiologist's impression: Extensive calcific tendinitis right shoulder. No fracture dislocation. Mild generalized spurring. Discharge Plan Discharge Clinical Impression: Hip pain, left, Contusion of knee, right, Contusion of knee, left, Contusion of multiple sites of right hand and wrist, Contusion of right shoulder, Calcific tendonitis of right shoulder Patient Disposition: Home, Self-Care Instructions: Contusion in Adults (ED), Calcific Tendinitis (ED), Hip Pain (ED) Additional Instructions: The x-rays of your knees show no broken bones. Your x-rays of the hand and wrist and forearm show no broken bones. Your shoulder has no broken bones but you do have tendinitis in her right shoulder. Call your primary care doctor to get a physical therapy consultation Follow-up with orthopedics as you have previously seen them in the past and they may be able to provide some assistance for your hips and knees Gentle stretching Heat or ice to the area Tylenol or motrin for pain as needed Las radiograf?as de hellen rodillas no muestran huesos rotos. Las radiograf?as de la mano, la mu?eca y el antebrazo no muestran huesos rotos. Murray hombro no tiene huesos rotos, brielle tiene tendinitis en el hombro derecho. Llame a murray m?dico de atenci?n primaria para obtener cathy consulta de fisioterapia Mar un seguimiento con ortopedia, ya que los son visto anteriormente en el pasado y es posible que puedan brindarle alguna ayuda para hellen caderas y rodillas. Estiramiento suave Calor o hielo en el ?abundio Tylenol o motrin para el dolor seg?n sea necesario Prescriptions: No Action Trulicity 1.5 mg/0.5 mL pen injector 1.5 mg subcut QWEEK 28 Days Qty: 2 6RF acetaminophen 325 mg capsule 650 mg PO Q6H PRN (Reason: pain) Qty: 20 0RF ondansetron 4 mg tablet,disintegrating 4 mg PO ONCE PRN (Reason: nausea and vomiting) Qty: 10 0RF oxycodone 5 mg tablet 5 mg PO Q6H PRN (Reason: pain) Qty: 10 0RF Rx Instructions: Partial Fill upon patient request. This medication causes drowsiness so no driving for 8 hours after taking ibuprofen 600 mg tablet 600 mg PO Q6H PRN (Reason: pain) Qty: 20 0RF metoprolol succinate 100 mg tablet extended release 24 hr 100 mg PO DAILY atorvastatin 80 mg tablet 80 mg PO DAILY mecobalamin (vitamin B12) 1,000 mcg tablet,chewable 1,000 mcg PO DAILY isosorbide mononitrate 30 mg tablet extended release 24 hr 30 mg PO QAM lisinopril 40 mg tablet 40 mg PO DAILY loratadine 10 mg tablet 10 mg PO DAILY aspirin [Adult Low Dose Aspirin] 81 mg tablet,delayed release (DR/EC) 81 mg PO DAILY omeprazole 40 mg capsule,delayed release(DR/EC) 40 mg PO DAILY metformin 500 mg tablet extended release 24 hr 1,000 mg PO BID gabapentin 100 mg capsule 100 mg PO DAILY amlodipine 10 mg tablet 10 mg PO DAILY docusate sodium 100 mg capsule 100 mg PO BEDTIME Qty: 90 3RF Citrucel 500 mg tablet 500 mg PO DAILY Qty: 90 2RF Rx Instructions: take it with full glass of water sennosides [Natural Senna Laxative] 8.6 mg tablet 8.6 mg PO BEDTIME Qty: 90 3RF Creon 6,000-19,000 -30,000 unit capsule,delayed release(DR/EC) 1 cap PO .qid ac Qty: 120 3RF Rx Instructions: do not exceed 10,000 unit/kg lipase per 24 hrs Tresiba FlexTouch U-200 200 unit/mL (3 mL) insulin pen 50 unit subcut QPM Qty: 9 6RF insulin aspart U-100 [Novolog Flexpen U-100 Insulin] 100 unit/mL (3 mL) insulin pen See Rx Instructions subcut TID Qty: 15 6RF Rx Instructions: 6 units for breakfast, 6 units for lunch and 10 units. subcut 3 times a day; Referrals: [facility] – [place], [place] [facility] [Provider Group] - 5 days Dallas Butler MD [Primary Care Provider] - 5 days Print Language: Italian
== END 2022-02-25 19:30 | disposition home or self-care (01) ==
PROVIDERS: Emergency Provider Student in an Organized Health Care Education/Training Program; PCP Internal Medicine
DX: M25.552 Pain in left hip (principal); S80.02XA Contusion of left knee, initial encounter; S80.01XA Contusion of right knee, initial encounter; S60.211A Contusion of right wrist, initial encounter; S60.221A Contusion of right hand, initial encounter; S40.011A Contusion of right shoulder, initial encounter; W18.39XA Other fall on same level, initial encounter; M75.31 Calcific tendinitis of right shoulder; Z91.81 History of falling; Y93.89 Activity, other specified; Y92.039 Unspecified place in apartment as the place of occurrence of the external cause; Y99.9 Unspecified external cause status
CPT/HCPCS: 73030; 73090; 73110; 73130; 73562; 99282; 99283

== ENCOUNTER → 2022-02-27 09:27 | Outpatient (BNVA) | payer MEDICAID, SELFPAY | PROVIDERS: PCP Internal Medicine; Visit Provider Nurse Practitioner Family | DX: Z01.818 Encounter for other preprocedural examination (principal); K59.00 Constipation, unspecified; K59.04 Chronic idiopathic constipation; K21.9 Gastro-esophageal reflux disease without esophagitis; R14.0 Abdominal distension (gaseous) | CPT/HCPCS: 99212 ==

== ENCOUNTER 2022-03-07 17:22 | Emergency (ER) | payer MEDICAID, SELFPAY ==
--- NOTE | ~2022-03-07 | XR_ITS ---
EXAMINATION: XR KNEE, RIGHT CLINICAL INFORMATION: Status post fall with pain. COMPARISON: Radiograph of the right knee dated from 02/25/2022. TECHNIQUE: Four views of the right knee. FINDINGS: No acute fractures or malalignment. Mild joint space narrowing of the medial compartment. No chondrocalcinosis or erosions. Small joint effusion, increased when compared to 02/25/2022. XR/XR knee RT 4V IMPRESSION: 1. No acute fractures or malalignment. 2. Mild degenerative osteoarthritis of the medial compartment. 3. Small joint effusion, increased when compared to 02/25/2022.
--- NOTE | ~2022-03-07 | XR_ITS ---
EXAMINATION: XR LUMBOSACRAL SPINE CLINICAL INFORMATION: Fall. Pain. COMPARISON: Previous exam March [address] of the abdomen and pelvis 02/23/2022 TECHNIQUE: Three views of the lumbosacral spine. FINDINGS: There is question of a fracture of the lower sacrum appreciated on the coned-down view of the lumbar sacral spine versus artifact due to obliquity. This is not definitely appreciated on the lateral view of the entire lumbar spine. No other fracture is seen. Bone alignment is normal. Disc spaces are normal. There are air-filled loops of bowel questionable for an ileus. XR/XR lumbar spine 2-3V IMPRESSION: Question fracture of the lower sacrum. Clinical correlation recommended. This could be better evaluated with a dedicated view of the sacrum/coccyx.
--- NOTE | ~2022-03-07 | XR_ITS ---
EXAMINATION: XR THORACIC SPINE CLINICAL INFORMATION: Fall. Back pain. COMPARISON: Thoracic spine 12/24/2021 TECHNIQUE: 2 views of the thoracic spine were obtained. FINDINGS: No fracture. No bone destruction. Normal alignment of vertebrae. Mild to moderate multilevel degenerative spondylosis of vertebral endplate spurs and disc narrowing. XR/XR thoracic spine 3V IMPRESSION: 1. No acute abnormality. 2. Degenerative spondylosis of the dorsal spine.
--- NOTE | ~2022-03-07 | CT_ITS ---
EXAMINATION: HEAD AND CERVICAL SPINE CT CLINICAL INFORMATION: Pain. Fall. COMPARISON: Previous CT scans most recent December 2021 TECHNIQUE: Axial images through the head and cervical spine without contrast. Sagittal and coronal reconstructions on the technologist workstation were performed. Patient dose 9 5 5 mg/cm. This CT examination was performed using dose optimization techniques as appropriate, variously including the following: *Automated exposure control *Adjustment of mA and/or kV according to patient size (this includes techniques or standardized protocols for targeted exams where dose is matched to indication/reason for exam; i.e. extremities or head) *Use of iterative reconstruction technique FINDINGS: Head CT: Exam is limited due to motion artifact. There is no evidence of an extra-axial collection. There is no evidence of intra-axial or extra-axial hemorrhage. The ventricles and extra-axial CSF spaces are appropriate. Millan-white matter differentiation is. No mass, mass effect or infarct is seen. There is sphenoid sinus disease. No skull fracture. Cervical spine: Bone alignment is normal. No fracture or dislocation is seen. There is mild degenerative spondylosis from C3-C4 to C6-C7. Disc spaces are normal. Prevertebral soft tissues are normal. Visualized lung apices are clear. CT/CT cervical spine wo IV con IMPRESSION: Head CT.: Limited due to motion. No acute findings. Cervical spine CT: Mild degenerative changes. No fracture or dislocation.
--- NOTE | ~2022-03-07 | XR_ITS ---
EXAMINATION: XR SACRUM AND COCCYX CLINICAL INFORMATION: Fracture of lumbar spine. COMPARISON: CT scan abdomen pelvis 02/23/2022 TECHNIQUE: 3 views FINDINGS: There are no fractures. No bone, joint or soft tissue abnormality is demonstrated of sacrum or coccyx. Mild degenerative spondylosis of cervical spine. 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 Sacroiliac joints are normal. Surgical clips right upper quadrant of abdomen. XR/XR sacrum coccyx min 2V IMPRESSION: No acute abnormality of the sacrum or coccyx.
--- NOTE | ~2022-03-07 | XR_ITS ---
EXAMINATION: XR SHOULDER, RIGHT CLINICAL INFORMATION: Shoulder pain, post fall. COMPARISON: X-ray right shoulder 02/25/2022. Chest radiograph 12/24/2021. TECHNIQUE: Three views of the right shoulder. FINDINGS: Again noted right-sided sixth and seventh rib fractures, also present on the radiograph from 12/24/2021. No acute fractures or malalignment. Redemonstration of prominent calcific tendinosis in the right shoulder. The imaged right lung is clear. XR/XR shoulder RT min 2V IMPRESSION: 1. No acute fractures or malalignment. 2. Redemonstration of right-sided sixth and seventh rib fractures. 3. Calcific tendinosis of the right shoulder.
--- NOTE | ~2022-03-07 | CT_ITS ---
EXAMINATION: HEAD AND CERVICAL SPINE CT CLINICAL INFORMATION: Pain. Fall. COMPARISON: Previous CT scans most recent December 2021 TECHNIQUE: Axial images through the head and cervical spine without contrast. Sagittal and coronal reconstructions on the technologist workstation were performed. Patient dose 9 5 5 mg/cm. This CT examination was performed using dose optimization techniques as appropriate, variously including the following: *Automated exposure control *Adjustment of mA and/or kV according to patient size (this includes techniques or standardized protocols for targeted exams where dose is matched to indication/reason for exam; i.e. extremities or head) *Use of iterative reconstruction technique FINDINGS: Head CT: Exam is limited due to motion artifact. There is no evidence of an extra-axial collection. There is no evidence of intra-axial or extra-axial hemorrhage. The ventricles and extra-axial CSF spaces are appropriate. Millan-white matter differentiation is. No mass, mass effect or infarct is seen. There is sphenoid sinus disease. No skull fracture. Cervical spine: Bone alignment is normal. No fracture or dislocation is seen. There is mild degenerative spondylosis from C3-C4 to C6-C7. Disc spaces are normal. Prevertebral soft tissues are normal. Visualized lung apices are clear. CT/CT head/brain wo IV con IMPRESSION: Head CT.: Limited due to motion. No acute findings. Cervical spine CT: Mild degenerative changes. No fracture or dislocation.
[2022-03-07 17:37] VITALS: BP 155/96; BP 183/90; PULSE 89; PULSE 96; RESP 20; TEMP 36.8; O2SAT 95; O2SAT 96; BMI 23.9
[2022-03-07] MEDS: oxyCODONE HCl Immed Release 5 MG TABLET PO (18:30)
--- NOTE | 2022-03-07 18:43 | ED_ITS ---
HPI - Fall General Chief Complaint: Fall Stated Complaint: FALL +HEADSTRIKE -LOC Time Seen by Provider: 03/07/22 17:38 Source: patient Mode of arrival: EMS Limitations: no limitations History of Present Illness HPI Narrative: Patient is a 56-year-old female who presents emergency department coming from home via EMS. She presents in a hard C-spine collar. She is s/p mechanical fall. She states she was walking in her kitchen when she tripped falling onto her right side. Reports head strike having occurred, denies loss of consciousness and denies anticoagulants. She is reporting pain to the right shoulder, right knee, and lower back. She does additionally endorse that she has had multiple falls recently, has been evaluated by her primary care for this since was advised this is due to impaired sensation secondary to neuropathy. Related Data Home Medications Medication Instructions Recorded Confirmed amlodipine 10 mg tablet 10 mg PO DAILY 02/10/21 06/16/21 aspirin 81 mg tablet,delayed 81 mg PO DAILY 02/10/21 02/10/21 release (Adult Low Dose Aspirin) atorvastatin 80 mg tablet 80 mg PO DAILY 02/10/21 02/10/21 gabapentin 100 mg capsule 100 mg PO DAILY 02/10/21 02/10/21 isosorbide mononitrate 30 mg 30 mg PO QAM 02/10/21 02/10/21 tablet,extended release 24 hr lisinopril 40 mg tablet 40 mg PO DAILY 02/10/21 02/10/21 loratadine 10 mg tablet 10 mg PO DAILY 02/10/21 02/10/21 mecobalamin (vitamin B12) 1,000 1,000 mcg PO DAILY 02/10/21 02/10/21 mcg chewable tablet metformin 500 mg tablet,extended 1,000 mg PO BID 02/10/21 06/16/21 release 24 hr metoprolol succinate 100 mg 100 mg PO DAILY 02/10/21 02/10/21 tablet,extended release 24 hr omeprazole 40 mg capsule,delayed 40 mg PO DAILY 02/10/21 02/10/21 release Previous Rx's Medication Instructions Recorded acetaminophen 325 mg capsule 650 mg PO Q6H PRN pain #20 caps 01/14/21 ondansetron 4 mg disintegrating 4 mg PO ONCE PRN nausea and 05/10/21 tablet vomiting #10 tabs dulaglutide 1.5 mg/0.5 mL 1.5 mg (0.5 mL) subcut QWEEK 28 06/16/21 subcutaneous pen injector days #2 mL (Trulicity) insulin aspart U-100 100 unit/mL See Rx Instructions subcut TID #15 06/16/21 (3 mL) subcutaneous pen (Novolog mL Flexpen U-100 Insulin aspart) insulin degludec 200 unit/mL (3 50 unit (0.25 mL) subcut QPM #9 mL 06/16/21 mL) subcutaneous pen (Tresiba FlexTouch U-200 insulin) docusate sodium 100 mg capsule 100 mg PO BEDTIME #90 caps 12/16/21 methylcellulose (laxative) 500 mg 500 mg PO DAILY #90 tabs 12/16/21 tablet (Citrucel) sennosides 8.6 mg tablet (Natural 8.6 mg PO BEDTIME constipation #90 12/16/21 Senna Laxative) tabs [id number]-hlgtnnhs-egfdlcz 1 cap PO .qid ac #120 caps 02/08/22 6,000-19,000-30,000 unit capsule,delayed rel (Creon) bisacodyl 5 mg tablet,delayed 10 mg PO ONCE 1 day #2 tabs 02/27/22 release (Dulcolax (bisacodyl)) docusate sodium 100 mg capsule 100 mg PO BEDTIME #90 caps 02/27/22 polyethylene glycol 3350 17 238 g PO ONCE #238 grams 02/27/22 gram/dose oral powder (Miralax) lidocaine 5 % topical patch 2 patch topical DAILY #30 ea 03/07/22 (Lidoderm) Allergies Allergy/AdvReac Type Severity Reaction Status Date / Time morphine [MORPHINE] Allergy Intermediate ITCHY, RASH Verified 02/27/22 09:36 Review of Systems Review of Systems: Constitutional: No weight loss, fever, chills, weakness or fatigue. Skin: No rash or itching. Cardiovascular: No chest pain, chest pressure or chest discomfort. No palpitations Respiratory: No shortness of breath, cough or sputum production. Gastrointestinal: No anorexia, nausea, vomiting or diarrhea. No abdominal pain Genitourinary: No burning micturition. No urinary frequency or incontinence. Musculoskeletal: Pain as noted in HPI Psychiatric: No depression or anxiety. Yes all other systems are reviewed and are negative PMFSH Past Medical History Attestation statement: The following information was validated with the patient. Source: old records reviewed Medical History Asthma Depression DM2 (diabetes mellitus, type 2) History of CVA (cerebrovascular accident) HLD (hyperlipidemia) Hypertension Myocardial infarction Overweight Type 2 diabetes mellitus with diabetic polyneuropathy Surgical History Hx of section Hx of cholecystectomy Family History Family History Father No problems noted. Mother No problems noted. Social History Social History Household Members: Significant Other Alcohol intake: never Patient Tobacco Use Status: Former Tobacco user Advance Directives: No Advance Directives Information Provided: No Physical Exam Vital Signs: Vital Signs: Last Vital Signs Temp 98.0 F 03/07/22 22:06 Pulse 91 03/07/22 22:06 Resp 14 03/07/22 22:06 BP 159/78 H 03/07/22 22:06 Pulse Ox 95 03/07/22 22:06 O2 Del Method 03/07/22 22:06 BMI result Body Mass Index 23.9 Appearance: Alert.?Oriented to person, place and time. No acute distress.?Normal affect. Eyes: Pupils equal, round and reactive to light.? ENT: Pharynx normal.?? Neck: Normal inspection.? Neck supple.??No midline cervical spine tenderness, step-offs, deformities Back: No midline thoracic or lumbar spine tenderness, step-offs, deformities CVS: Heart sounds normal. Normal heart rate and rhythm.? Pulses normal.?? Respiratory: No respiratory distress.? Lung sounds clear to auscultation bilaterally?? Abdomen: Soft and non-tender. Normoactive bowel sounds. ? Skin: Skin warm and dry.? Normal skin color.? Normal skin turgor.?? Extremities: No lower extremity edema.? Decreased AROM to right shoulder and right knee. 2+ DP/PT pulse and 2+ radial pulse bilaterally. No obvious deformities to the joints. Neuro: Moves all extremities spontaneously. Sensation intact bilaterally. CN II- XII intact. No focal neuro deficits. Course Course Course Narrative: Patient is a 56-year-old female with a past medical history of asthma, depression, type 2 diabetes with peripheral neuropathy, history of CVA, hyperlipidemia, hypertension, myocardial infarction. She presents emergency department for evaluation after a mechanical fall. Overall she is well- appearing, appears uncomfortable, reporting 8/[address] of the head and cervical side to exclude ICH/SAH/fracture/subluxation in addition to x- ray of the right knee, right shoulder, and lumbar spine. Will trial oxycodone early for pain. Reevaluation(s) Reevaluation #1: CT of the head without acute intracranial findings CT of the cervical spine without acute fracture subluxation. Hard C-spine collar removed at this time. pending XR's. reports pain 3/10 after oxycodone. Time: 20:48 Reevaluation #2: XR the right knee reveals no acute fracture dislocation, mild osteoarthritis and small joint effusion. XR of the right shoulder reveals no acute fracture or dislocation in the there is calcific tendinosis of the right shoulder. XR of the thoracic spine is unremarkable. X-ray of the lumbar spine reveals questionable fracture to the lower sacrum versus artifact, will obtain XR Sacrum. Time: 22:14 Reevaluation #3: X-ray of the sacrum reveals no acute abnormalities. Discussed these findings with patient. Patient symptoms consistent with musculoskeletal nature, strain of the right shoulder, right knee sprain with effusion, lumbar strain. Advised plan of care for discharge home, rest, ice, lidoderm patch to back. Nitish bandage to right knee, acetaminophen/ibuprofen as needed for pain. Advised outpatient follow-up with primary care provider. Reviewed worrisome signs and symptoms to return back to emergency department for. All questions were answered. Patient discharged home stable condition. Ambulatory with a steady gait. MDM - Fall Medical Records Attestation: I reviewed the patient's medical records. Lab Data Attestation: I reviewed the patient's lab results. Imaging Data CT scan - head: Radiologist's impression: CT/CT cervical spine wo IV con IMPRESSION: Head CT.: Limited due to motion. No acute findings. ? Cervical spine CT: Mild degenerative changes. No fracture or dislocation.? XR knee: Radiologist's impression: XR/XR knee RT 4V IMPRESSION: 1.? No acute fractures or malalignment. 2.? Mild degenerative osteoarthritis of the medial compartment. 3.? Small joint effusion, increased when compared to 02/25/2022. ? XR shoulder: Radiologist's impression: XR/XR shoulder RT min 2V IMPRESSION: 1.? No acute fractures or malalignment. 2.? Redemonstration of right-sided sixth and seventh rib fractures. 3.? Calcific tendinosis of the right shoulder. ? XR spine: Radiologist's impression: XR/XR thoracic spine 3V IMPRESSION: 1.? No acute abnormality. 2.? Degenerative spondylosis of the dorsal spine. XR/XR lumbar spine 2-3V IMPRESSION: Question fracture of the lower sacrum. Clinical correlation recommended. This could be better evaluated with a dedicated view of the sacrum/coccyx. XR Sacrum: Radiologist's impression: XR/XR sacrum coccyx min 2V IMPRESSION: No acute abnormality of the sacrum or coccyx. Discharge Plan Discharge Clinical Impression: Fall, Right shoulder strain, Right knee sprain, Effusion of knee joint right, Lumbar strain Patient Disposition: Home, Self-Care Instructions: Muscle Strain (ED), Acute Low Back Pain (ED), R.I.C.E. Treatment (ED), Cold Compress or Soak (ED) Additional Instructions: X-rays do not indicate any fractures/broken bones or dislocation. The CT scan of your head was also normal. Please be sure to rest over the next few days, apply ice for 10-15 minutes 3-4 times daily to the areas of pain. You can take ibuprofen 200 mg, 3 tablets (600mg) every 6-8 hours as needed for pain, in addition to Tylenol 500 mg, 2 tablets (1,000mg) every 4-6 hours as needed for pain, but not to exceed 3 doses daily (3,000mg).? Wear Nitish bandage to right knee to decrease swelling and pain. You have also been given a prescription for Lidoderm patch which can be applied to the back, leave on for 12 hours and remove for 12 hours. Follow-up with your primary care provider within the next few days with any continued concerns. Return to emergency department any new or worsening symptoms or concerns. Prescriptions: New lidocaine [Lidoderm] 5 % adhesive patch,medicated 2 patch topical DAILY Qty: 30 0RF Rx Instructions: leave on most painful area for up to 12 hrs No Action Trulicity 1.5 mg/0.5 mL pen injector 1.5 mg subcut QWEEK 28 Days Qty: 2 6RF acetaminophen 325 mg capsule 650 mg PO Q6H PRN (Reason: pain) Qty: 20 0RF ondansetron 4 mg tablet,disintegrating 4 mg PO ONCE PRN (Reason: nausea and vomiting) Qty: 10 0RF metoprolol succinate 100 mg tablet extended release 24 hr 100 mg PO DAILY atorvastatin 80 mg tablet 80 mg PO DAILY mecobalamin (vitamin B12) 1,000 mcg tablet,chewable 1,000 mcg PO DAILY isosorbide mononitrate 30 mg tablet extended release 24 hr 30 mg PO QAM lisinopril 40 mg tablet 40 mg PO DAILY loratadine 10 mg tablet 10 mg PO DAILY aspirin [Adult Low Dose Aspirin] 81 mg tablet,delayed release (DR/EC) 81 mg PO DAILY omeprazole 40 mg capsule,delayed release(DR/EC) 40 mg PO DAILY metformin 500 mg tablet extended release 24 hr 1,000 mg PO BID gabapentin 100 mg capsule 100 mg PO DAILY amlodipine 10 mg tablet 10 mg PO DAILY docusate sodium 100 mg capsule 100 mg PO BEDTIME Qty: 90 3RF Citrucel 500 mg tablet 500 mg PO DAILY Qty: 90 2RF Rx Instructions: take it with full glass of water sennosides [Natural Senna Laxative] 8.6 mg tablet 8.6 mg PO BEDTIME Qty: 90 3RF Creon 6,000-19,000 -30,000 unit capsule,delayed release(DR/EC) 1 cap PO .qid ac Qty: 120 3RF Rx Instructions: do not exceed 10,000 unit/kg lipase per 24 hrs bisacodyl [Dulcolax (bisacodyl)] 5 mg tablet,delayed release (DR/EC) 10 mg PO ONCE 1 Days Qty: 2 0RF Rx Instructions: take 2 tabs at noon the day before your colonoscopy polyethylene glycol 3350 [Miralax] 17 gram/dose powder 238 g PO ONCE Qty: 238 0RF Rx Instructions: As directed by gastroenterology department at [facility] docusate sodium 100 mg capsule 100 mg PO BEDTIME Qty: 90 3RF Tresiba FlexTouch U-200 200 unit/mL (3 mL) insulin pen 50 unit subcut QPM Qty: 9 6RF insulin aspart U-100 [Novolog Flexpen U-100 Insulin] 100 unit/mL (3 mL) insulin pen See Rx Instructions subcut TID Qty: 15 6RF Rx Instructions: 6 units for breakfast, 6 units for lunch and 10 units. subcut 3 times a day; Interventions: ED Discharge Assessment Last Done: 03/07/22 23:34 Discharge Date/Time: 03/07/22 23:35
[2022-03-07 22:00] VITALS: BP 164/81; PULSE 85; RESP 16; O2SAT 93
[2022-03-07 22:06] VITALS: BP 159/78; PULSE 91; RESP 14; TEMP 36.7; O2SAT 95
[2022-03-07] MEDS: Ibuprofen 600 MG TABLET PO (23:05)
== END 2022-03-07 23:35 | disposition home or self-care (01) ==
PROVIDERS: Emergency Provider Emergency Medicine
DX: S43.401A Unspecified sprain of right shoulder joint, initial encounter (principal); M54.50 Low back pain, unspecified; R51.9 Headache, unspecified; M54.2 Cervicalgia; M53.3 Sacrococcygeal disorders, not elsewhere classified; M54.6 Pain in thoracic spine; W01.10XA Fall on same level from slipping, tripping and stumbling with subsequent striking against unspecified object, initial encounter; Y93.9 Activity, unspecified; Y92.000 Kitchen of unspecified non-institutional (private) residence as the place of occurrence of the external cause; Y99.9 Unspecified external cause status; Z87.891 Personal history of nicotine dependence; Z79.899 Other long term (current) drug therapy
CPT/HCPCS: 70450; 72072; 72100; 72125; 72220; 73030; 73564; 99284

== ENCOUNTER → 2022-06-09 12:57 | Outpatient (BNVA) | payer MEDICAID, SELFPAY | PROVIDERS: PCP Internal Medicine; Visit Provider Nurse Practitioner Family | DX: K59.01 Slow transit constipation (principal); K21.9 Gastro-esophageal reflux disease without esophagitis; R14.0 Abdominal distension (gaseous) | CPT/HCPCS: 99212 ==

== ENCOUNTER 2022-06-26 13:00 | Outpatient (RCR) | payer MEDICAID, SELFPAY ==
[2022-06-05 13:05] VITALS: BP 147/68; PULSE 72; O2SAT 97
== END 2022-07-11 15:21 | disposition home or self-care (01) ==
LOC: HO.PT 13:00
PROVIDERS: PCP Internal Medicine; Visit Provider Nurse Practitioner Primary Care
DX: M54.9 Dorsalgia, unspecified (principal); Z91.81 History of falling
CPT/HCPCS: 97110; 97162; 97530

== ENCOUNTER 2022-06-29 15:02 | Outpatient (REF) | payer MEDICAID, SELFPAY ==
--- NOTE | ~2022-06-29 | XR_ITS ---
EXAMINATION: XR KNEE, RIGHT XR KNEE, LEFT XR KNEE AP STANDING CLINICAL INFORMATION: Pain. COMPARISON: Prior radiographs, most recently 03/07/2022. TECHNIQUE: [place] view of the right knee. [place] view of the left knee. AP bilateral standing view of the knees was obtained. FINDINGS: RIGHT KNEE: Bones and soft tissues are normal. No fracture or joint effusion. Alignment is anatomic. Joint spaces are well maintained. No abnormal soft tissue calcification. LEFT KNEE: Bones and soft tissues are normal. No fracture or joint effusion. Alignment is anatomic. Joint spaces are well maintained. No abnormal soft tissue calcification. XR/XR knee RT 1V IMPRESSION: Normal knees.
--- NOTE | ~2022-06-29 | XR_ITS ---
EXAMINATION: XR KNEE, RIGHT XR KNEE, LEFT XR KNEE AP STANDING CLINICAL INFORMATION: Pain. COMPARISON: Prior radiographs, most recently 03/07/2022. TECHNIQUE: [place] view of the right knee. [place] view of the left knee. AP bilateral standing view of the knees was obtained. FINDINGS: RIGHT KNEE: Bones and soft tissues are normal. No fracture or joint effusion. Alignment is anatomic. Joint spaces are well maintained. No abnormal soft tissue calcification. LEFT KNEE: Bones and soft tissues are normal. No fracture or joint effusion. Alignment is anatomic. Joint spaces are well maintained. No abnormal soft tissue calcification. XR/XR knee LT 1V IMPRESSION: Normal knees.
--- NOTE | ~2022-06-29 | XR_ITS ---
EXAMINATION: XR KNEE, RIGHT XR KNEE, LEFT XR KNEE AP STANDING CLINICAL INFORMATION: Pain. COMPARISON: Prior radiographs, most recently 03/07/2022. TECHNIQUE: [place] view of the right knee. [place] view of the left knee. AP bilateral standing view of the knees was obtained. FINDINGS: RIGHT KNEE: Bones and soft tissues are normal. No fracture or joint effusion. Alignment is anatomic. Joint spaces are well maintained. No abnormal soft tissue calcification. LEFT KNEE: Bones and soft tissues are normal. No fracture or joint effusion. Alignment is anatomic. Joint spaces are well maintained. No abnormal soft tissue calcification. XR/XR knee standing BI IMPRESSION: Normal knees.
== END 2022-06-29 15:03 | disposition home or self-care (01) ==
LOC: HO.HOSX 15:02
PROVIDERS: Visit Provider Physician Assistant
DX: M17.0 Bilateral primary osteoarthritis of knee (principal)
CPT/HCPCS: 20610; 73560; 73565; 99202; J1020

== ENCOUNTER → 2022-07-17 13:46 | Outpatient (BNVA) | payer MEDICAID, SELFPAY | PROVIDERS: PCP Internal Medicine; Visit Provider Physician Assistant | DX: M17.12 Unilateral primary osteoarthritis, left knee (principal) | CPT/HCPCS: 20610; 99212; J1020 ==

== ENCOUNTER → 2022-08-30 13:08 | Outpatient (BNVA) | payer MEDICAID, SELFPAY | PROVIDERS: PCP Internal Medicine; Referring Provider Internal Medicine; Visit Provider Internal Medicine | DX: Z01.810 Encounter for preprocedural cardiovascular examination (principal); I42.9 Cardiomyopathy, unspecified; I25.10 Atherosclerotic heart disease of native coronary artery without angina pectoris; I10 Essential (primary) hypertension; I44.0 Atrioventricular block, first degree; E11.42 Type 2 diabetes mellitus with diabetic polyneuropathy; Z98.890 Other specified postprocedural states; Z79.4 Long term (current) use of insulin | CPT/HCPCS: 93005; 99202 ==

== ENCOUNTER → 2022-09-07 12:53 | Outpatient (REF) | payer MEDICAID, SELFPAY ==
--- NOTE | 2022-09-07 12:55 | CA_ITS ---
Transthoracic Echocardiogram Patient (Last, First, Middle): Wendy Rivers, Gender: Female Date of : 1965 Age: 57 Procedure Date: 09/07/2022 Procedure Type: Transthoracic Echocardiogram Location: OP Height: 160.02 cm Weight: 61.24 kg BSA: 1.64 m2 Heart Rate: bpm BP: 120 / 80 mmHg Director Of Patient Safety: ATL Referring MD: Tab Jimenes MD Symptoms: I42.9 - Cardiomyopathy, unspecified Study Quality: Fair, contrast Conclusions: - 1. Low normal LV ejection fraction 50-55% with impaired relaxation filling pattern 2. At least mild aortic stenosis 3. Normal RV systolic pressure 4. No gross pericardial effusion 5. At least mildly dilated left atrium Findings Procedure Information Contrast agent, definity, is being given per protocol without apparent complications. Left Ventricle Normal left ventricular cavity size. There is normal left ventricular wall thickness. The left ventricular systolic function is low normal. The visually estimated ejection fraction is between 50-55%. Spectral Doppler is indicative of an impaired relaxation filling pattern. E/E prime ratio is between 8 and 15 consistent with indeterminate filling pressures. Right Ventricle Normal right ventricular cavity size and systolic function. Atria The left atrium is mildly dilated. Interatrial shunt cannot be excluded. The right atrium was not well visualized. Aortic Valve The aortic valve was not well visualized. There is mild aortic valve stenosis. The peak aortic gradient is 23 mmHg.The mean gradient is 12 mmHg. There is no aortic valve regurgitation. Mitral Valve There is mild anterior and posterior mitral leaflet thickening. There is trace mitral valve regurgitation. There is no mitral valve stenosis. Pulmonic Valve The pulmonic valve was not well visualized. Tricuspid Valve Likely normal tricuspid valve structure and function. There is trace tricuspid valve regurgitation. The right ventricular systolic pressure is normal. The right ventricular systolic pressure is 15 mmHg. Normal right atrial pressure. Great Vessels All visible segments of the aorta are normal in size. The pulmonary artery was not well visualized. Venous The inferior vena cava is normal in size and collapses greater than 50% with inspiration. Pericardium/Pleural There is no evidence of pericardial effusion. Prior Study Comparison Changes noted compared to prior study dated: 06/12/2018. LV systolic function is marginally reduced. There is evidence of mild aortic stenosis. Measurements 2D Linear Measurements IVSd: 1.14 0.6-0.9/0.6-1.0 cm LVIDd: 4.83 3.9-5.3/4.2-5.9 cm LVIDd Index: 2.95 2.4-3.2/2.2-3.1 cm/m2 LVIDs: 3.77 2.0-3.6 cm LVPWd: 1.15 0.7-1.1 cm LA Diam: 3.80 2.7-3.8/3.0-4.0 cm LAIDs Index: 2.32 1.5-2.3 cm/m2 LV Mass: 258.20 67-162/88-224 g LV Mass Index: 157.44 43-95/49-115 g/m2 LVOT Diam: 2.10 3.0+(-)1.3 cm 2D Systolic Function EF 4C: 51.60 >55% EF 2C: 51.10 >55% EF BiP: 52.00 >55% Mitral Valve MV Pk E: 0.60 MV PK A: 0.58 MV Decel Time: 177.00 E/A: 1.00 E'Lateral: 6.09 E'Medial: 4.13 E/E' Med: 14.50 E/E' Lat: 9.80 PHT: 52.00 MVA PHT: 4.23 Decel [place]: 3.38 Aortic Valve AoV Pk Maxx: 2.39 AoV Mn Maxx: 1.66 AoV VTI: 0.51 AoV Pk Grad: 23.00 Aov Mn Grad: 12.00 TODD Cont.VTI: 1.06 LVOT LVOT Pk Maxx: 0.75 LVOT Mn Maxx: 0.50 LVOT VTI: 0.16 LVOT Pk Grad: 2.00 LVOT Mn Grad: 1.00 LVOT Diam: 2.10 LVOT Area: 3.46 Diastolic Function MV Pk E: 0.60 MV Pk A: 0.58 E/A: 1.00 E'Medial: 4.13 E/E' Med: 14.50 E' Laterial: 6.09 E/E' Lat: 9.80 Right Ventricle TAPSE (mm): 19.10 TVS' Maxx: 10.00 Tricuspid Valve TR Pk Maxx: 1.70 TR Pk Grad: 12.00 RA Press: 3.00 RVSP: 15.00 Great Vessels Aorta Sinus of Valsalva: 2.72 2.0-3.[address] [place]: 2.24 1.7-3.4 cm Ao Asc: 2.90 2.1-3.4 cm Updated in Other Vendor System with Status of Final Naga Holley MD electronically signed on 09/07/2022 3:31:48 PM with status of Final
== END ==
LOC: HO.CARD 12:53
PROVIDERS: PCP Internal Medicine; Visit Provider Internal Medicine
DX: I42.9 Cardiomyopathy, unspecified (principal)
CPT/HCPCS: 93306; Q9957

== ENCOUNTER → 2022-09-12 13:26 | Outpatient (BNVA) | payer MEDICAID, SELFPAY | PROVIDERS: PCP Internal Medicine; Visit Provider Nurse Practitioner Family | DX: Z12.11 Encounter for screening for malignant neoplasm of colon (principal); K58.2 Mixed irritable bowel syndrome; K21.9 Gastro-esophageal reflux disease without esophagitis | CPT/HCPCS: 99212 ==

== ENCOUNTER 2022-09-20 10:00 | Outpatient (RCR) | payer MEDICAID, SELFPAY ==
[2022-08-21 13:08] VITALS: BP 125/63; PULSE 70
--- NOTE | 2022-08-21 14:24 | MHC.PT.EP ---
[facility] [place] Office [place] Office [place] Office [address] [phone] F: [phone] F: [phone] F: [phone] F: [phone] Physical Therapy Plan of Care Date of Evaluation: Date of Surgery: NA Diagnosis: B primary OA of knee Assessment: Wendy is a 57 year old female who is referred to PT for B primary OA of knee . She reports of having h/o chronic knee pain which has been slightly feeling better after she had 2 cortisone shots recently. On PT examination she presented with mild TTP over B IT band and R GT, 8/10 pain with standing, walking and stairs, decreased B LE strength, difficulty with R SL due to GT pain, altered posture, balance and gait. She has advanced practice professional who assist her with all ADLS during the day and at night. She does not work. She would benefit from skilled PT to address the aforementioned impairment and improve tolerance to functional activities. Frequency and Duration: The patient will be seen 2/week for 5 weeks. Short Term Goals: 1. Pt will demonstrate initiation of HEP in 2 weeks. 2. Pt will have 50% decrease in hip pain and be able to tolerate R SL in 2 weeks Solar Sales Specialist Goals: 1. Pt will demonstrate an increase in muscle strength by 1 grade which will enable her to tolerate standing and walking with a pain no more than 2/10 in 5 weeks. 2. Pt will be independent with HEP for symptom management and maintenance following d/c in 5 weeks. Treatment Plan: Modalities to reduce pain, spasms and effusion. Manual therapy to restore motion and function. Therapeutic exercise to improve strength and flexibility. Neuromuscular re-education for posture and balance. Therapeutic activities to return to functional activities of daily living. Electronically signed by: Tatianna Palacios PT DPT Please sign and return to therapist. Thank you for your referral.
--- NOTE | 2022-10-11 09:35 | MHC.PT.DC ---
[facility] [place] Office [place] Office [place] Office [address] Radha Myers [address] [phone] F: [phone] F: [phone] F: [phone] F: [phone] Physical Therapy Discharge Report Diagnosis: B primary OA of knee Date of Surgery: NA Date of Evaluation: 08/21/22 Date of Discharge: 10/11/22 Treatments to Date: 6 Cancellations to Date: 1 No Shows to Date: Discharge Status: Patient Elected to Stop Discharge Summary: Wendy was recommended 2 more visits after her last appointment on 09/20/22. She however has no visits scheduled so far. She is therefore being d/c from PT. Electronically signed by: Tatianna Palacios PT DPT Please sign and return to therapist. Thank you for your referral.
== END 2022-10-11 09:35 | disposition home or self-care (01) ==
LOC: HO.PT 10:00
PROVIDERS: PCP Internal Medicine; Visit Provider Physician Assistant
DX: M17.0 Bilateral primary osteoarthritis of knee (principal)
CPT/HCPCS: 97110; 97162

== ENCOUNTER 2022-11-05 21:28 | Emergency (ER) | payer MEDICAID, SELFPAY ==
--- NOTE | ~2022-11-05 | XR_ITS ---
EXAMINATION: XR HIP, LEFT CLINICAL INFORMATION: Fall. COMPARISON: None available. TECHNIQUE: Two views of the left hip. FINDINGS: AP pelvis: There is normal symmetry of bilateral hip joints and SI joints. No visible acute fracture or bony abnormality seen involving the pelvic bones. There sacrum appears normal. Rest of the pelvic bones are normal. The soft tissues are normal XR/XR hip LT min 2V IMPRESSION: Unremarkable AP pelvis exam. No visible acute fracture or dislocation seen.
--- NOTE | ~2022-11-05 | XR_ITS ---
EXAMINATION: LEFT ELBOW, LEFT KNEE, LEFT FOOT CLINICAL INFORMATION: Fall with elbow, knee and foot pain COMPARISON: Left knee 06/29/2022, left foot 11/24/2020, left elbow 05/10/2021 TECHNIQUE: 3 views elbow, 3 views foot, 4 views knee FINDINGS: Elbow: No significant bone, joint or soft tissue abnormality is seen. Knee: No significant bone, joint or soft tissue abnormality is seen. Foot: Vascular calcifications are noted. A calcaneal plantar spur is present. Some minimal degenerative change present at the first metatarsal phalangeal joint. No fractures are seen. XR/XR elbow LT min 3V IMPRESSION: No evidence of a traumatic osseous injury involving the left elbow, knee or foot.
--- NOTE | ~2022-11-05 | XR_ITS ---
EXAMINATION: LEFT ELBOW, LEFT KNEE, LEFT FOOT CLINICAL INFORMATION: Fall with elbow, knee and foot pain COMPARISON: Left knee 06/29/2022, left foot 11/24/2020, left elbow 05/10/2021 TECHNIQUE: 3 views elbow, 3 views foot, 4 views knee FINDINGS: Elbow: No significant bone, joint or soft tissue abnormality is seen. Knee: No significant bone, joint or soft tissue abnormality is seen. Foot: Vascular calcifications are noted. A calcaneal plantar spur is present. Some minimal degenerative change present at the first metatarsal phalangeal joint. No fractures are seen. XR/XR foot LT min 3V IMPRESSION: No evidence of a traumatic osseous injury involving the left elbow, knee or foot.
--- NOTE | ~2022-11-05 | XR_ITS ---
EXAMINATION: LEFT ELBOW, LEFT KNEE, LEFT FOOT CLINICAL INFORMATION: Fall with elbow, knee and foot pain COMPARISON: Left knee 06/29/2022, left foot 11/24/2020, left elbow 05/10/2021 TECHNIQUE: 3 views elbow, 3 views foot, 4 views knee FINDINGS: Elbow: No significant bone, joint or soft tissue abnormality is seen. Knee: No significant bone, joint or soft tissue abnormality is seen. Foot: Vascular calcifications are noted. A calcaneal plantar spur is present. Some minimal degenerative change present at the first metatarsal phalangeal joint. No fractures are seen. XR/XR knee LT 3V IMPRESSION: No evidence of a traumatic osseous injury involving the left elbow, knee or foot.
[2022-11-05 21:41] VITALS: BP 103/83; PULSE 80; RESP 20; TEMP 36.8; O2SAT 96; BMI 25.2
[2022-11-06 02:37] VITALS: BP 146/70; PULSE 83; RESP 16; TEMP 36.7; TEMP 36.9; O2SAT 99
--- NOTE | 2022-11-06 03:12 | ED.FALL ---
HPI - Fall General Chief Complaint: Fall Stated Complaint: Fall/ left leg injury Time Seen by Provider: 11/06/22 03:08 History of Present Illness HPI Narrative: patient is a 57-year-old female history of cardiomyopathy history of osteoarthritis. History of diabetes. Patient tripped over dog. Complaining of pain to the left knee left foot and left hip area. Denies any loss of consciousness. No head injury. Patient not on blood thinners. Related Data Home Medications Medication Instructions Recorded Confirmed amlodipine 10 mg tablet 10 mg PO DAILY 02/10/21 08/30/22 aspirin 81 mg tablet,delayed 81 mg PO DAILY 02/10/21 08/30/22 release (Adult Low Dose Aspirin) atorvastatin 80 mg tablet 80 mg PO DAILY 02/10/21 08/30/22 gabapentin 100 mg capsule 100 mg PO DAILY 02/10/21 08/30/22 isosorbide mononitrate 30 mg 30 mg PO QAM 02/10/21 08/30/22 tablet,extended release 24 hr lisinopril 40 mg tablet 40 mg PO DAILY 02/10/21 08/30/22 loratadine 10 mg tablet 10 mg PO DAILY 02/10/21 08/30/22 mecobalamin (vitamin B12) 1,000 1,000 mcg PO DAILY 02/10/21 08/30/22 mcg chewable tablet metformin 500 mg tablet,extended 1,000 mg PO BID 02/10/21 08/30/22 release 24 hr metoprolol succinate 100 mg 100 mg PO DAILY 02/10/21 08/30/22 tablet,extended release 24 hr omeprazole 40 mg capsule,delayed 40 mg PO DAILY 02/10/21 08/30/22 release fluticasone propionate 220 2 puff inhalation BID 06/09/22 08/30/22 mcg/actuation HFA aerosol inhaler (Flovent HFA) Previous Rx's Medication Instructions Recorded acetaminophen 325 mg capsule 650 mg PO Q6H PRN pain #20 caps 01/14/21 ondansetron 4 mg disintegrating 4 mg PO ONCE PRN nausea and 05/10/21 tablet vomiting #10 tabs dulaglutide 1.5 mg/0.5 mL 1.5 mg (0.5 mL) subcut QWEEK 06/16/21 subcutaneous pen injector days #2 mL (Trulicity) insulin degludec 200 unit/mL (3 50 unit (0.25 mL) subcut QPM #9 mL 06/16/21 mL) subcutaneous pen (Tresiba FlexTouch U-200 insulin) lidocaine 5 % topical patch 2 patch topical DAILY #30 ea 03/07/22 (Lidoderm) insulin aspart U-100 100 unit/mL See Rx Instructions subcut TID #15 04/03/22 (3 mL) subcutaneous pen (Novolog mL FlexPen U-100 Insulin aspart) docusate sodium 100 mg capsule 100 mg PO BEDTIME #90 caps 06/09/22 methylcellulose (laxative) 500 mg 500 mg PO DAILY #90 tabs 06/09/22 tablet (Citrucel) sennosides 8.6 mg tablet (Natural 17.2 mg PO BEDTIME constipation 06/09/22 Senna Laxative) #180 tabs bisacodyl 5 mg tablet,delayed 10 mg PO ONCE 1 day #2 tabs 09/12/22 release (Dulcolax (bisacodyl)) polyethylene glycol 3350 17 238 g PO ONCE #238 grams 09/12/22 gram/dose oral powder (Miralax) ibuprofen 400 mg tablet 400 mg PO Q6H PRN pain #20 tabs 11/06/22 Allergies Allergy/AdvReac Type Severity Reaction Status Date / Time morphine [MORPHINE] Allergy Intermediate ITCHY, RASH Verified 09/12/22 13:35 Review of Systems Review of Systems: Positive pain to the left lower extremity Yes all other systems are reviewed and are negative PMFSH Past Medical History Attestation statement: The following information was validated with the patient. Medical History Asthma Atherosclerotic cardiovascular disease Cardiomyopathy Depression DM2 (diabetes mellitus, type 2) History of CVA (cerebrovascular accident) HLD (hyperlipidemia) Hypertension Myocardial infarction Overweight Type 2 diabetes mellitus with diabetic polyneuropathy Surgical History Hx of section Hx of cholecystectomy Family History Family History Father No problems noted. Mother No problems noted. Social History Social History Household Members: Significant Other Alcohol intake: never Patient Tobacco Use Status: Former Tobacco user Smoked in Last 30 Days: No Use of substances other than those prescribed or required for medical reasons: No Advance Directives: No Advance Directives Information Provided: Yes Patient : No Current occupational status: disabled Physical Exam Vital Signs: Vital Signs: Last Vital Signs Temp 98.4 F 11/06/22 02:37 Pulse 83 11/06/22 02:37 Resp 16 11/06/22 02:37 BP 146/70 H 11/06/22 02:37 Pulse Ox 99 11/06/22 02:37 O2 Del Method Room Air 11/06/22 02:37 BMI result Body Mass Index 25.2 Appearance: Alert. Oriented X3. No acute distress. Eyes: Pupils equal, round and reactive to light. ENT: Pharynx normal. Neck: Normal inspection. Neck supple. No lymph nodes noted. No crepitus CVS: Normal heart rate and rhythm. Pulses normal. Normal S1 and S2 Respiratory: No respiratory distress. Breath sounds normal. No Wheezing. No rales Abdomen: Soft and nontender. No rigidity. No distention. good BS x4 Skin: Skin warm and dry. Normal skin color. Normal skin turgor. Extremities: pain on movement of the left hip. Pain on movement of the knee. There is no gross swelling of the knee noted. There is no pain on palpation of the patella. No pain on palpation of medial and lateral collateral ligament. Range of motion limited secondary to pain. There is no swelling over the ankle. No tenderness on palpation of the medial or lateral malleolus. No tenderness at the base of the 5th metatarsal. Distal pulses over the dorsalis pedis is intact. Sensation over the foot intact. Skin intact over the lower extremity. Neuro: Oriented X 3. No motor deficit. No sensory deficit. Moving all extermities. No slurred speech Medical Decision Making Medical Decision Making [facility] Narrative: Patient is a 57-year-old female status post accidental fall. X-ray of the hip on the left side, knee, foot were all negative. X-ray of the elbow was negative. Will give Motrin for pain. The fall was mechanical in nature. Patient not on blood thinners. Will discharge home. Differential Diagnosis Differential Diagnoses: The differential diagnosis associated with the presentation includes Sprain, fracture, contusion Consult Healthcare Provider Management of the patient was discussed with: Primary Care Provider Lab Data [facility] Lab Attestation statement: I reviewed the patient's lab results. Independent Interpretation I performed an independent interpretation of an: Plain X-Ray Interpretation: x-ray of the hip showed no acute fracture x-ray of the knee is grossly negative Prescription Management I considered prescription management with: Pain Medication Chronic Conditions Patient?s care impacted by: Hypertension Discharge Plan Discharge Clinical Impression: Pain Patient Disposition: Home, Self-Care Instructions: Musculoskeletal Pain (ED) Prescriptions: New ibuprofen 400 mg tablet 400 mg PO Q6H PRN (Reason: pain) Qty: 20 0RF No Action Trulicity 1.5 mg/0.5 mL pen injector 1.5 mg subcut QWEEK 28 Days Qty: 2 6RF insulin aspart U-100 [Novolog FlexPen U-100 Insulin] 100 unit/mL (3 mL) insulin pen See Rx Instructions subcut TID Qty: 15 0RF Rx Instructions: 6 units for breakfast, 6 units for lunch and 10 units. subcut 3 times a day; acetaminophen 325 mg capsule 650 mg PO Q6H PRN (Reason: pain) Qty: 20 0RF ondansetron 4 mg tablet,disintegrating 4 mg PO ONCE PRN (Reason: nausea and vomiting) Qty: 10 0RF lidocaine [Lidoderm] 5 % adhesive patch,medicated 2 patch topical DAILY Qty: 30 0RF Rx Instructions: leave on most painful area for up to 12 hrs metoprolol succinate 100 mg tablet extended release 24 hr 100 mg PO DAILY atorvastatin 80 mg tablet 80 mg PO DAILY mecobalamin (vitamin B12) 1,000 mcg tablet,chewable 1,000 mcg PO DAILY isosorbide mononitrate 30 mg tablet extended release 24 hr 30 mg PO QAM lisinopril 40 mg tablet 40 mg PO DAILY loratadine 10 mg tablet 10 mg PO DAILY aspirin [Adult Low Dose Aspirin] 81 mg tablet,delayed release (DR/EC) 81 mg PO DAILY omeprazole 40 mg capsule,delayed release(DR/EC) 40 mg PO DAILY metformin 500 mg tablet extended release 24 hr 1,000 mg PO BID gabapentin 100 mg capsule 100 mg PO DAILY amlodipine 10 mg tablet 10 mg PO DAILY fluticasone propionate [Flovent HFA] 220 mcg/actuation HFA aerosol inhaler 2 puff inhalation BID sennosides [Natural Senna Laxative] 8.6 mg tablet 17.2 mg PO BEDTIME Qty: 180 3RF Citrucel 500 mg tablet 500 mg PO DAILY Qty: 90 2RF Rx Instructions: take it with full glass of water docusate sodium 100 mg capsule 100 mg PO BEDTIME Qty: 90 3RF bisacodyl [Dulcolax (bisacodyl)] 5 mg tablet,delayed release (DR/EC) 10 mg PO ONCE 1 Days Qty: 2 0RF Rx Instructions: take 2 tabs at noon the day before your colonoscopy polyethylene glycol 3350 [Miralax] 17 gram/dose powder 238 g PO ONCE Qty: 238 0RF Rx Instructions: As directed by gastroenterology department at [facility] Tresiba FlexTouch U-200 200 unit/mL (3 mL) insulin pen 50 unit subcut QPM Qty: 9 6RF Referrals: [place],[facility] [Primary Care Provider] -
[2022-11-06 05:09] VITALS: BP 132/80; PULSE 74; RESP 16; TEMP 36.8; O2SAT 99
== END 2022-11-06 05:14 | disposition home or self-care (01) ==
PROVIDERS: Emergency Provider Emergency Medicine Emergency Medical Services
DX: Z04.3 Encounter for examination and observation following other accident (principal); M25.562 Pain in left knee; M79.672 Pain in left foot; M25.552 Pain in left hip; E11.9 Type 2 diabetes mellitus without complications; I10 Essential (primary) hypertension; E78.5 Hyperlipidemia, unspecified
CPT/HCPCS: 73080; 73502; 73562; 73630; 99283; 99284

== ENCOUNTER 2022-12-21 09:34 | Outpatient (AMB) | payer MEDICAID, SELFPAY ==
--- NOTE | 2022-12-21 09:41 | A.OFFVIS_ITS ---
Intake Intake Visit Reasons: OV LT knee pain and swelling, last inj 07/17/22 Intake Note: Wendy hall 57 year old female presents today for a follow up of left knee pain, last injection on 07/17/22. Patient reports recent ER visit on 11/06/22 s/p fall on her left side. She states injection provided her with relief up until she had the fall on 11/06/22. Allergies morphine [MORPHINE] Allergy (Intermediate, Verified 12/21/22 09:44) ITCHY, RASH HPI OV LT knee pain and swelling, last inj 07/17/22 HPI Details 57-year-old female who returns to the office today for a follow-up of left knee pain. She had her last injection on 07/17/22 which provided her relief until she sustained a fall on her left side. She was seen at ER on 11/06/22. She states she has worsening pain and swelling in her left knee. She has a history of diabetes. Her sugar level is currently controlled. [facility] Medical History Asthma Atherosclerotic cardiovascular disease Cardiomyopathy Depression DM2 (diabetes mellitus, type 2) History of CVA (cerebrovascular accident) HLD (hyperlipidemia) Hypertension Myocardial infarction Overweight Type 2 diabetes mellitus with diabetic polyneuropathy Surgical History Hx of section Hx of cholecystectomy Family History Father No problems noted. Mother No problems noted. Social History Household Members: Significant Other Alcohol intake: never Patient Tobacco Use Status: Former Tobacco user Current occupational status: disabled Review of Systems Const All systems reviewed & are unremarkable except as noted in HPI and below Physical Exam Const General: cooperative and no acute distress Orientation/consciousness: patient oriented x3 Resp Effort & Inspection: normal respiratory effort and able to speak in complete sentences Cardio Peripheral pulses: Peripheral pulses 2+ throughout Neuro General: patient oriented x3 Extrem Other: Bilateral knee skin intact, no erythema or joint effusion. Tenderness along the medial and lateral joint line. Full ROM with crepitus. Negative Cinthia?s. No ligamentous laxity. NVI. Office Procedures Joint Injection/Drain Joint Injection/Drain Primary Site: left knee Prep: site was prepped using aseptic technique, ethochloride spray was applied and injection warnings given Injected: 40 mg of, DepoMedrol, with 8 mL of, 1% plain lidocaine and in the joint Approach Used: anterolateral Procedure: The patient tolerated the procedure well and there was some relief with the local anesthesia Coding 13655 - Glenohumeral/Tronchanteric Bursa/Intraarticular Procedure code (CPT) selection complete Results Reviewed Results Reviewed: 12/21/22 10:01 Lidocaine HCl 2 % MPF [Xylocaine 2 % MPF] 5 ml .ROUTE .STK-MED ONE methylPREDNISolone acetate [DEPO-MedroL] 40 mg .ROUTE .STK-MED ONE Assessment & Plan Assessment & Plan (1) Osteoarthritis of left knee: Code(s): M17.12 - Unilateral primary osteoarthritis, left knee Plan We discussed options today which include steroid injection. They did consent to move forward with the left knee injection, which was tolerated well. I recommended rest, ice and elevation and OTC anti-inflammatories PRN for discomfort. We also discussed their diabetes and the effect the steroid can have on their blood glucose levels; therefore, they will continue to monitor these very closely over the next 72 hours. If there are any concerns, they should report to the ED immediately. Patient Instructions: Scribed for Carlyn Forde PA-C, by Jonnathan Wolf [employer], on 12/21/2022 at 9:30 AM GALILEA. Carlyn Helton PA-C, have personally reviewed and agree with the information entered by the scribe. Coding Level of Care Code Est Pt Level 3 (42530) Diagnoses Osteoarthritis of left knee M17.12 CPT Codes Coding - Joint 7: 87870 - Glenohumeral/Tronchanteric Bursa/Intraarticular ([id number])
== END 2022-12-21 10:13 | disposition home or self-care (01) ==
PROVIDERS: Visit Provider Physician Assistant
DX: M17.12 Unilateral primary osteoarthritis, left knee (principal)
CPT/HCPCS: 20610; 99213

== ENCOUNTER → 2022-12-21 09:34 | Outpatient (BNVA) | payer MEDICAID, SELFPAY | PROVIDERS: Visit Provider Physician Assistant | DX: M17.12 Unilateral primary osteoarthritis, left knee (principal) | CPT/HCPCS: 20610; 99213; J1020 ==

== ENCOUNTER 2023-01-09 10:19 | Outpatient (REF) | payer MEDICAID, SELFPAY ==
[2023-01-09 11:41] LABS: Anion Gap 9 (12-20); Blood Urea Nitrogen 9 mg/dL (9-16); Calcium 9.7 mg/dL (8.4-10.2); Carbon Dioxide 29 mmol/L (22-29); Chloride 105 mmol/L (96-108); Estimated Glomerular Filt Rate > 60; Glucose Random 133 mg/dL (60-115); Potassium 3.9 mmol/L (3.3-5.1); Sodium 139 mmol/L (135-145)
[2023-01-09 11:43] LABS: Erythrocyte Sedimentation Rate 25 MM/HR (0-20)
[2023-01-09 11:57] LABS: T4 Thyroxine 6.4 ug/dL (4.5-12.0); Thyroid Stimulating Hormone 1.14 uIU/mL (0.32-4.0)
== END 2023-01-09 10:20 | disposition home or self-care (01) ==
LOC: HO.LAB 10:19
PROVIDERS: PCP Internal Medicine; Visit Provider Psychiatry & Neurology Neurology
DX: G62.9 Polyneuropathy, unspecified (principal)
CPT/HCPCS: 36415; 80048; 82550; 84436; 84443; 85652

== ENCOUNTER 2023-02-28 13:09 | Outpatient (AMB) | payer MEDICAID, SELFPAY ==
[2023-02-28 13:22] VITALS: BMI 26.0
--- NOTE | 2023-02-28 13:22 | A.OFFVIS_ITS ---
Intake Vital Signs 02/28/23 13:22 Height 5 ft 3 in Weight 147 lb BMI 26.0 Intake Visit Reasons: ov- RT knee inject. 06/29/22 Intake Note: Wendy hall 57 year old female presents today for a follow up of right knee, last injection 06/29/22. Patient reports last injection provided her relief for a few weeks. She is requesting to repeat right knee injection. Allergies morphine [MORPHINE] Allergy (Intermediate, Verified 12/21/22 09:44) ITCHY, RASH HPI ov- RT knee inject. 06/29/22 HPI Details 57-year-old female who returns to the [facility] today for a follow-up of right knee pain. She continues to have right knee pain which is aggravated with showering, getting out of bed, walking long distances and stair use. She had his last injection on 06/29/22 which provided him relief for a few weeks. She is interested in repeating the injection. She has a history of diabetes. Her sugar level is currently controlled. [facility] Medical History Asthma Atherosclerotic cardiovascular disease Cardiomyopathy Depression DM2 (diabetes mellitus, type 2) History of CVA (cerebrovascular accident) HLD (hyperlipidemia) Hypertension Myocardial infarction Overweight Type 2 diabetes mellitus with diabetic polyneuropathy Surgical History Hx of section Hx of cholecystectomy Family History Father No problems noted. Mother No problems noted. Social History Household Members: Significant Other Alcohol intake: never Patient Tobacco Use Status: Former Tobacco user Current occupational status: disabled Review of Systems Const All systems reviewed & are unremarkable except as noted in HPI and below Physical Exam Vital Signs: BMI result Body Mass Index 26.0 Const General: cooperative and no acute distress Orientation/consciousness: patient oriented x3 Resp Effort & Inspection: normal respiratory effort and able to speak in complete sentences Cardio Peripheral pulses: Peripheral pulses 2+ throughout Neuro General: patient oriented x3 Extrem Other: Bilateral knee skin intact, no erythema or joint effusion. Tenderness along the medial and lateral joint line. Full ROM with crepitus. Negative Cinthia?s. No ligamentous laxity. NVI. Office Procedures Joint Injection/Drain Joint Injection/Drain Primary Site: right knee Prep: site was prepped using aseptic technique, ethochloride spray was applied and injection warnings given Injected: 40 mg of, DepoMedrol, with 8 mL of, 1% plain lidocaine and in the joint Approach Used: anterolateral Procedure: The patient tolerated the procedure well and there was some relief with the local anesthesia Coding 75697 - Glenohumeral/Tronchanteric Bursa/Intraarticular Procedure code (CPT) selection complete Results Reviewed Results Reviewed: 02/28/23 13:32 Lidocaine HCl 2 % MPF [Xylocaine 2 % MPF] 5 ml .ROUTE .STK-MED ONE methylPREDNISolone acetate [DEPO-MedroL] 40 mg .ROUTE .STK-MED ONE Assessment & Plan Assessment & Plan (1) Osteoarthritis of left knee: Code(s): M17.12 - Unilateral primary osteoarthritis, left knee Qualifiers: Osteoarthritis type: primary Qualified Code(s): M17.12 - Unilateral primary osteoarthritis, left knee Plan We discussed options today which include steroid injection. They did consent to move forward with the right knee injection, which was tolerated well. I christiano mmended rest, ice and elevation and OTC anti-inflammatories PRN for discomfort. I also sent a prescription of Celebrex to her pharmacy today. If symptoms persist or worsens over the next 6-8 weeks, patient will contact the office, otherwise follow-up as needed. Medications: New celecoxib (Celebrex) 200 mg PO BID 60 caps 3RF pain 30 days Patient Instructions: Scribed for Carlyn Forde PA-C, by Jonnathan Wolf medical affairs manager, on 02/28/2023 at 1:15 PM EST. Carlyn Helton PA-C, have personally reviewed and agree with the information entered by the scribe. Coding Level of Care Code Est Pt Level 3 (57009) Diagnoses Primary osteoarthritis of left knee M17.12 Osteoarthritis type: primary CPT Codes Coding - Joint 7: 22798 - Glenohumeral/Tronchanteric Bursa/Intraarticular ([id number])
== END 2023-02-28 13:46 | disposition home or self-care (01) ==
PROVIDERS: PCP Internal Medicine; Visit Provider Physician Assistant
DX: M17.12 Unilateral primary osteoarthritis, left knee (principal)
CPT/HCPCS: 20610; 99213

== ENCOUNTER → 2023-02-28 13:09 | Outpatient (BNVA) | payer MEDICAID, SELFPAY | PROVIDERS: PCP Internal Medicine; Visit Provider Physician Assistant | DX: M25.561 Pain in right knee (principal); M17.12 Unilateral primary osteoarthritis, left knee | CPT/HCPCS: 20610; 99212; J1020 ==

== ENCOUNTER 2023-03-01 12:21 | Outpatient (REF) | payer MEDICAID, SELFPAY ==
--- NOTE | ~2023-03-01 | MM_ITS ---
EXAMINATION: MM SCREENING DIGITAL BREAST TOMOSYNTHESIS, BILATERAL CLINICAL INFORMATION: Screening. Asymptomatic. COMPARISON: Mammography: 01/28/2022, 01/02/2017, 12/07/2015. TECHNIQUE: Digital breast tomosynthesis is performed in both the craniocaudal and mediolateral oblique views along with computer-aided detection (CAD). Synthesized 2D images are generated from the tomosynthesis. FINDINGS: There are scattered areas of fibroglandular density (ACR BI-RADS breast composition Category b). There are no suspicious masses, suspicious grouped calcifications, or areas of architectural distortion in either breast. The parenchymal pattern is stable from prior exams. There are vascular calcifications bilaterally. There are no skin or axillary abnormalities. MM/MM tomosynthesis screening BI IMPRESSION: No mammographic evidence of malignancy. ASSESSMENT: BI-RADS BI-RADS 1 - Negative RECOMMENDATION: Routine annual mammography screening. 1 year F/U This examination should not preclude the clinical evaluation of a suspicious palpable abnormality. This patient's information was entered into a reminder system with a target due date for their next mammogram.
== END 2023-03-01 12:22 | disposition home or self-care (01) ==
LOC: HO.MAMMO 12:21
PROVIDERS: PCP Internal Medicine; Visit Provider Internal Medicine
DX: Z12.31 Encounter for screening mammogram for malignant neoplasm of breast (principal)
CPT/HCPCS: 77063; 77067

== ENCOUNTER → 2023-03-01 12:45 | Outpatient (BNV) | payer MEDICAID, SELFPAY | PROVIDERS: PCP Internal Medicine; Visit Provider Radiology Diagnostic Radiology | DX: Z12.31 Encounter for screening mammogram for malignant neoplasm of breast (principal) | CPT/HCPCS: 77063; 77067 ==

== ENCOUNTER 2023-03-13 12:47 | Outpatient (REF) | payer MEDICAID, SELFPAY ==
--- NOTE | ~2023-03-13 | MR_ITS ---
EXAMINATION: MR LUMBAR SPINE WITHOUT CONTRAST CLINICAL INFORMATION: Severe low back pain radiating to left leg COMPARISON: None TECHNIQUE: MRI of the lumbar spine was obtained using routine sequences without contrast. FINDINGS: Normal lumbar lordosis is preserved. No significant spondylolisthesis. Chronic appearing T11 superior endplate compression fracture with minimal height loss and additional chronic superior endplate compression fractures at T12 and L2 with lesser height loss. No bony retropulsion. No suspicious osseous lesions. Multilevel disc desiccation with mild L1-L2 and partially imaged lower thoracic disc height loss. Scattered small endplate Schmorl's nodes. Trace type I Modic endplate changes at T11-T12. Multilevel anterior osteophytic spurring is seen. Level by level detail as follows: L1-L2: Shallow annular disc bulge without spinal canal or neural foraminal stenosis. L2-L3: No spinal canal or neural foraminal stenosis. L3-L4: Shallow annular disc bulge with mild bilateral facet arthrosis and ligamentum flavum thickening. No spinal canal stenosis. Minimal bilateral neural foraminal encroachment. L4-L5: Shallow annular disc bulge and mild bilateral facet arthrosis. No spinal canal or significant neural foraminal stenosis. L5-S1: Shallow annular disc bulge with superimposed central disc protrusion mild facet arthrosis. No spinal canal stenosis. Mild right without significant left neural foraminal stenosis. The conus medullaris terminates at the level of T12-L1. The distal spinal cord is normal in appearance. No epidural fluid collection, hematoma, or mass. There is mild fatty atrophy of the paraspinal musculature. Limited evaluation of the intra-abdominal structures without significant abnormalities. The abdominal aorta is of normal contour and caliber. MR/MR lumbar spine wo con IMPRESSION: Minimal lumbar spondylosis without significant spinal canal or neural foraminal stenosis at any level.
--- NOTE | ~2023-03-13 | MR_ITS ---
EXAMINATION: MR HIP WITHOUT CONTRAST, LEFT CLINICAL INFORMATION: Left hip pain. Fall. COMPARISON: Left hip radiographs dated 11/06/2022. TECHNIQUE: MRI of the left hip was obtained using routine sequences on a high-field magnet. FINDINGS: ACETABULAR LABRUM: Intact. ARTICULAR CARTILAGE/BONE: Mild articular cartilage signal heterogeneity with small marginal osteophytes. No stress reaction, fracture, or avascular necrosis. No concerning lytic or blastic osseous lesion. Mild articular cartilage signal heterogeneity with small marginal osteophytes partially visualized within the right hip on large [id number] imaging. MUSCLES/TENDONS: Prominent increased T2 signal adjacent to the distal gluteus minimus tendon with more mild increased T2 signal adjacent to the gluteus medius tendon, consistent with tendinosis. No transverse tendon tear or tendon retraction. JOINT FLUID/BURSA: Within normal limits. INTRAPELVIC STRUCTURES: Unremarkable. MR/MR hip LT wo con IMPRESSION: 1. Moderate gluteus minimus and mild gluteus medius tendinosis without a measurable tendon tear or tendon retraction. 2. Mild left hip osteoarthritis. No stress reaction, fracture, or avascular necrosis. 3. Partially visualized mild right hip osteoarthritis.
== END 2023-03-13 12:48 | disposition home or self-care (01) ==
LOC: HO.MRI 12:47
PROVIDERS: PCP Internal Medicine; Visit Provider Internal Medicine
DX: M54.50 Low back pain, unspecified (principal); M25.552 Pain in left hip
CPT/HCPCS: 72148; 73721

== ENCOUNTER 2023-03-14 07:17 | Outpatient (REF) | payer MEDICAID, SELFPAY | END 2023-03-14 07:18 | disposition home or self-care (01) | LOC: HO.MRI 07:17 | PROVIDERS: PCP Internal Medicine; Visit Provider Psychiatry & Neurology Neurology | DX: Z13.89 Encounter for screening for other disorder (principal) ==

== ENCOUNTER 2023-03-21 20:08 | Outpatient (REF) | payer MEDICAID, SELFPAY ==
--- NOTE | ~2023-03-21 | MR_ITS ---
EXAMINATION: MR BRAIN WITHOUT CONTRAST CLINICAL INFORMATION: Reported history of stroke; eye pressure, feet numbness, body aches COMPARISON: CT head without contrast 03/07/2022 TECHNIQUE: Multiplanar multisequence MR imaging of the brain was obtained without intravenous contrast. FINDINGS: There is no acute infarct on diffusion-weighted imaging. There is no intracranial hemorrhage on iron-sensitive imaging. No extra-axial collection or mass effect/herniation. Normal parenchymal signal characteristics. No hydrocephalus. The ventricles are normal in morphology and size. The major flow voids at the skull base are preserved. The midline structures are normal. The cerebellar tonsils are normally positioned. The craniocervical junction is normal. Marrow signal is within normal limits. The visualized soft tissues are without significant abnormality. No signal abnormality within the paranasal sinuses or within the mastoid air cells. MR/MR head/brain wo con IMPRESSION: Unremarkable noncontrast MRI of the brain.
== END 2023-03-21 20:09 | disposition home or self-care (01) ==
LOC: HO.MRI 20:08
PROVIDERS: PCP Internal Medicine; Visit Provider Psychiatry & Neurology Neurology
DX: I63.9 Cerebral infarction, unspecified (principal)
CPT/HCPCS: 70551

== ENCOUNTER 2023-07-19 18:17 | Outpatient (REF) | payer MEDICAID, SELFPAY | END 2023-07-19 18:18 | disposition home or self-care (01) | LOC: HO.HHCLNP 18:17 | PROVIDERS: Visit Provider Internal Medicine | DX: R30.0 Dysuria (principal) | CPT/HCPCS: 87086 ==

== ENCOUNTER 2023-08-15 09:15 | Outpatient (AMB) | payer MEDICAID, SELFPAY ==
--- NOTE | 2023-08-15 09:33 | A.OFFVIS_ITS ---
Intake Intake Visit Reasons: ov- RT knee inject. last inject. 02/23/23 Intake Note: Wendy is a 57 year old female who presents to the office today for a right knee injection. Pt states her last injection was 02/23/23. She states the injections help. Accompanied by: Nephew or Niece Allergies morphine [MORPHINE] Allergy (Intermediate, Verified 08/15/23 09:33) ITCHY, RASH HPI ov- RT knee inject. last inject. 02/23/23 HPI Details 57-year-old female who returns to the [facility] today for a follow-up of right knee pain. She had her last injection on 02/23/23 which provided her relief. She would like to repeat the injection today. [facility] Medical History Atherosclerotic cardiovascular disease Cardiomyopathy Type 2 diabetes mellitus with diabetic polyneuropathy History of CVA (cerebrovascular accident) Overweight HLD (hyperlipidemia) DM2 (diabetes mellitus, type 2) Asthma Hypertension Depression Myocardial infarction Surgical History Hx of cholecystectomy Hx of section Family History Father No problems noted. Mother No problems noted. Social History Household Members: Significant Other Alcohol intake: never Patient Tobacco Use Status: Former Tobacco user Current occupational status: disabled Review of Systems Const All systems reviewed & are unremarkable except as noted in HPI and below Physical Exam Extrem Other: Right knee: Skin intact, no erythema or joint effusion. Tenderness along the medial or lateral or medial and lateral joint line. Full ROM with crepitus. Negative Cinthia?s. No ligamentous laxity. NVI. Office Procedures Joint Injection/Drain Joint Injection/Drain Primary Site: right knee Prep: site was prepped using aseptic technique, ethochloride spray was applied and injection warnings given Injected: 40 mg of, DepoMedrol, with 8 mL of, 1% plain lidocaine and in the joint Approach Used: anterolateral Procedure: The patient tolerated the procedure well and there was some relief with the local anesthesia Coding 51659 - Glenohumeral/Tronchanteric Bursa/Intraarticular Procedure code (CPT) selection complete Assessment & Plan Assessment & Plan (1) Patellofemoral arthritis of right knee: Code(s): M17.11 - Unilateral primary osteoarthritis, right knee Plan We discussed options today which include steroid injection. They did consent to move forward with the right knee injection, which was tolerated well. I recommended rest, ice and elevation and OTC anti-inflammatories PRN for discomfort. We also discussed their diabetes and the effect the steroid can have on their blood glucose levels; therefore, they will continue to monitor these very closely over the next 72 hours. If there are any concerns, they should report to the ED immediately. Orders: Orders PT Evaluation and Treatment Today M17.11 - Unilateral primary osteoarthritis, right knee Medications: New [transport belt] As directed 1 ea 0RF M17.11 - Unilateral primary osteoarthritis, right knee, R26.89 - Other abnormalities of gait and mobility Patient Instructions: Scribed for Carlyn Forde PA-C, by Jonnathan Wolf lead medical technologist, on 08/15/2023 at 9:45 AM EST. ICarlyn PA-C, have personally reviewed and agree with the information entered by the scribe. Coding Level of Care Code Est Pt Level 3 (18376) Diagnoses Patellofemoral arthritis of right knee M17.11 CPT Codes Coding - Joint 7: 39381 - Glenohumeral/Tronchanteric Bursa/Intraarticular ([id number])
== END 2023-08-15 09:49 | disposition home or self-care (01) ==
PROVIDERS: PCP Internal Medicine; Visit Provider Physician Assistant
DX: M17.11 Unilateral primary osteoarthritis, right knee (principal)
CPT/HCPCS: 20610; 99213

== ENCOUNTER → 2023-08-15 09:15 | Outpatient (BNVA) | payer MEDICAID, SELFPAY | PROVIDERS: PCP Internal Medicine; Visit Provider Physician Assistant | DX: M17.11 Unilateral primary osteoarthritis, right knee (principal) | CPT/HCPCS: 20610; 99212; J1010; J1020 ==

== ENCOUNTER 2023-09-13 12:50 | Outpatient (AMB) | payer MEDICAID, SELFPAY ==
--- NOTE | 2023-09-13 12:56 | A.OFFVIS_ITS ---
Vital Signs 09/13/23 12:59 09/13/23 13:51 Height 5 ft 3 in Weight 149 lb 14.629 oz BMI 26.6 BP 140/62 H 122/68 Blood Pressure Location Lt brachial Lt brachial Position Sitting Pulse 73 Pulse Source Monitor Intake Visit Reasons: 1 year follow up Occupational Therapy Aide Required: No Leather Production Worker: Leather Production Worker Present Allergies morphine [MORPHINE] Allergy (Intermediate, Verified 09/13/23 13:02) ITCHY, RASH Medication List - Last Reconciled 09/13/23 by ADRIANE Kellogg acetaminophen 650 mg (2 x 325 mg) PO Q6H PRN amlodipine 10 mg PO DAILY aspirin (Adult Low Dose Aspirin) 81 mg PO DAILY atorvastatin 80 mg PO DAILY celecoxib (Celebrex) 200 mg PO BID 30 days docusate sodium 100 mg PO BEDTIME dulaglutide (Trulicity) 1.5 mg (0.5 mL) subcut QWEEK 28 days fluticasone propionate 220 mcg/actuation (Flovent HFA) 2 puffs inhalation BID gabapentin 100 mg PO DAILY ibuprofen 400 mg PO Q6H PRN insulin aspart U-100 (Novolog FlexPen U-100 Insulin aspart) 6 units for breakfast, 6 units for lunch and 10 units. subcut 3 times a day; insulin degludec (Tresiba FlexTouch U-200 insulin) 50 units (0.25 mL) subcut QPM isosorbide mononitrate ER 30 mg PO QAM lidocaine 5% (Lidoderm) 2 patches topical DAILY lisinopril 40 mg PO DAILY loratadine 10 mg PO DAILY mecobalamin (vitamin B12) 1,000 mcg PO DAILY metformin ER 1,000 mg PO BID methylcellulose (laxative) (Citrucel) 500 mg PO DAILY metoprolol succinate ER 100 mg PO DAILY omeprazole 40 mg PO DAILY ondansetron 4 mg PO ONCE PRN sennosides (Natural Senna Laxative) 17.2 mg (2 x 8.6 mg) PO BEDTIME [transport belt As directed] HPI HPI 1 year follow up: Details: Wendy is a 58-year-old female past medical history of hypertension, hyperlipidemia, diabetes, nonischemic cardiomyopathy, non obstructive coronary artery disease, mild aortic stenosis who presents for follow-up. Today she reports that she has been having issues with unsteadiness due to leg weakness and has had falls at home. 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 She has not had any lightheadedness, presyncope, syncope. She will be starting physical therapy soon to help strengthen her legs. She has no chest discomfort at rest or with activity. No heart palpitations, PND, orthopnea or edema. She has some shortness of breath at times that she relates to asthma. She has home updrafts as needed. She is mostly sedentary. She has a reclining bed and sleeps with the head of the elevated some. Ambulates with a walker. Niece is assisting with Mongolian translation at their request, permit signed. [facility] Medical History Atherosclerotic cardiovascular disease Cardiomyopathy Type 2 diabetes mellitus with diabetic polyneuropathy History of CVA (cerebrovascular accident) Overweight HLD (hyperlipidemia) DM2 (diabetes mellitus, type 2) Asthma Hypertension Depression Myocardial infarction Surgical History Hx of cholecystectomy Hx of section Family History Father No problems noted. Mother No problems noted. Social History Household Members: Significant Other Alcohol intake: never Patient Tobacco Use Status: Former Tobacco user Current occupational status: disabled Review of Systems Const All systems reviewed & are unremarkable except as noted in HPI and below ENT Denies dizziness Card Denies chest pain, Denies chest pain at rest, Denies chest pain with activity, Denies rapid heart rate, Denies pedal edema, Denies edema, Denies leg edema, Denies lightheadedness, Denies palpitations, Reports dyspnea, Denies dyspnea on exertion and Denies orthopnea Resp Denies cough, Reports dyspnea and Denies dyspnea on exertion GI Denies hematochezia and Denies change in stool character Musc Details: leg weakness, unsteadiness with ambulation, falls. Reports abnormal gait, Reports limited range of motion, Denies muscle cramps, Reports muscle weakness, Denies numbness, Denies radiating pain into limb, Denies stiffness and Denies tingling Neuro Reports abnormal gait, Denies dizziness, Denies numbness and Denies tingling Endo Denies palpitations Physical Exam Vital Signs: Last Vital Signs Pulse 73 09/13/23 12:59 BP 122/68 09/13/23 13:51 BMI result Body Mass Index 26.6 Const General: cooperative, healthy appearing, comfortable and no acute distress Orientation/consciousness: patient oriented x3 Neck Neck: Yes normal visual inspection and Yes no JVD Resp Effort & Inspection: normal respiratory effort Auscultation: clear to auscultation bilaterally, no rales, no rhonchi and no wheezes Cardio Jugular venous distension: no JVD Rate: regular rate Rhythm: regular rhythm Heart sounds: S1 normal heart sound present, S2 normal heart sound present, Murmur heart sound present (2/6 systolic murmur) and no rubs Neuro General: patient oriented x3 Extrem General: Yes normal to inspection, No no pedal edema and No calf tenderness Psych Appearance: grossly normal Mental Status: mental status grossly normal Speech and movement: Normal speech and movement present Office Procedures EKG Details: Today, read by me, normal sinus rhythm, first-degree AV block, rate 73, QTC 442 milliseconds [id number], Complete Assessment & Plan Assessment & Plan (1) Atherosclerotic cardiovascular disease: Code(s): I25.10 - Atherosclerotic heart disease of [place] coronary artery without angina pectoris Category: Medical Plan: History of CAD. Cardiac catheterization in 2016 showed proximal LAD stenosis. Echocardiogram at that time did show significantly reduced EF, nonischemic cardiomyopathy. Since that time her EF has improved. Last echocardiogram done 09/07/2022 showed EF 50-55%, mild aortic stenosis, normal RV. EKG done today showing normal sinus rhythm, first-degree AV block, no acute ST or T-wave abnormalities, rate 73. She has no reports of anginal sounding chest discomfort. She does have some shortness of breath with activity which she relates to asthma. She is mostly sedentary and has issues with leg weakness. Signs and symptoms of angina reviewed with her. Will have her continue on aspirin indefinitely. Continue atorvastatin with ideal LDL goal less than 70. Continue isosorbide, metoprolol, lisinopril, amlodipine. Blood pressure today well controlled at 122/68. Continue with good blood sugar control, hemoglobin A1c goal less than 7. Cardiology follow-up 1 year, sooner if needed (2) Cardiomyopathy: Code(s): I42.9 - Cardiomyopathy, unspecified Category: Medical Plan: History of cardiomyopathy, previously noted to be as low as 10-15% in 2016. In 2019 it was up to 55-60%. Last echocardiogram 09/07/2022 shows EF 50-55%. She has no signs of heart failure on examination today. She has not requiring diuretic therapy. Signs and symptoms of heart failure reviewed with her. No med changes made today. (3) First degree heart block by electrocardiogram: Code(s): I44.0 - Atrioventricular block, first degree Category: Medical Plan: Present on EKG, not new (4) Hypertension: Code(s): I10 - Essential (primary) hypertension Category: Medical Plan: Well controlled at present. Continue amlodipine, isosorbide, lisinopril and metoprolol XL. Labs done on 01/09/2023 showed potassium 3.9, creatinine 0.65. (5) HLD (hyperlipidemia): Code(s): E78.5 - Hyperlipidemia, unspecified Category: Medical Plan: [place] LDL goal less than 70. Labs done 01/09/2023 showed LDL 60. Continue atorvastatin 80 mg daily. (6) Aortic stenosis: Code(s): I35.0 - Nonrheumatic aortic (valve) stenosis Category: Medical Plan: Mild aortic stenosis on last echocardiogram. Will arrange for repeat echocardiogram prior to next visit in 1 year. Plan Time spent on chart review, documentation, interview and assessment Orders: Orders CA echo transthoracic complete 11 Months I35.0 - Nonrheumatic aortic (valve) stenosis, I42.9 - Cardiomyopathy, unspecified Coding Level of Care Code Est Pt Level 4 (90964) Diagnoses Atherosclerotic cardiovascular disease I25.10 Cardiomyopathy I42.9 First degree heart block by electrocardiogram I44.0 Hypertension I10 HLD (hyperlipidemia) E78.5 Aortic stenosis I35.0 CPT Codes EKG - CPT: 79521-[id number], Complete ([id number]) Time Spent (min) 28
[2023-09-13 12:59] VITALS: BP 140/62; PULSE 73; BMI 26.6
[2023-09-13 13:51] VITALS: BP 122/68
== END 2023-09-13 13:29 | disposition home or self-care (01) ==
PROVIDERS: Visit Provider Nurse Practitioner Family
DX: I25.10 Atherosclerotic heart disease of native coronary artery without angina pectoris (principal); I42.9 Cardiomyopathy, unspecified; I44.0 Atrioventricular block, first degree; I10 Essential (primary) hypertension; E78.5 Hyperlipidemia, unspecified; I35.0 Nonrheumatic aortic (valve) stenosis
CPT/HCPCS: 93010; 99214

== ENCOUNTER → 2023-09-13 12:50 | Outpatient (BNVA) | payer MEDICAID, SELFPAY | PROVIDERS: Visit Provider Nurse Practitioner Family | DX: I25.10 Atherosclerotic heart disease of native coronary artery without angina pectoris (principal); I42.9 Cardiomyopathy, unspecified; I44.0 Atrioventricular block, first degree; I10 Essential (primary) hypertension; E78.5 Hyperlipidemia, unspecified; I35.0 Nonrheumatic aortic (valve) stenosis | CPT/HCPCS: 93005; 99212 ==

== ENCOUNTER 2023-10-02 13:32 | Emergency (ER) | payer MEDICAID, SELFPAY ==
--- NOTE | ~2023-10-02 | CT_ITS ---
EXAMINATION: CT CERVICAL SPINE WITHOUT CONTRAST; UNENHANCED CT OF THE HEAD. CLINICAL INFORMATION: Head strike fall COMPARISON: CT head and cervical spine 03/07/2022. TECHNIQUE: Routine unenhanced CT of the head with multiple coronal and sagittal reformatted images; routine unenhanced CT of the cervical spine with multiple coronal and sagittal reformatted images. This CT examination was performed using dose optimization techniques as appropriate, variously including the following: *Automated exposure control *Adjustment of mA and/or kV according to patient size (this includes techniques or standardized protocols for targeted exams where dose is matched to indication/reason for exam; i.e. extremities or head) *Use of iterative reconstruction technique DLP: 975 mGy-cm FINDINGS: CT head: No intracranial hemorrhage, tumors or acute infarcts noted. The ventricles and sulci are normal in size and configuration. Bilateral ocular lens replacements are noted. No intracranial soft tissue inflammatory changes visualized. Dental amalgam is present and gives rise to scattering artifact partially obscures visualization of adjacent transaxial structures. No significant opacification of the visualized paranasal sinuses, mastoid air cells and middle ear cavities. CT cervical spine: No fractures or acute appearing subluxations noted. Vertebral body height and alignment are normal in appearance. Minimal anterior endplate osteophytosis is noted along the inferior margins of the C3, C4 and C5 vertebral bodies CT/CT cervical spine wo IV con IMPRESSION: CT head: No acute intracranial abnormalities. CT cervical spine: No acute intracranial abnormalities.
--- NOTE | ~2023-10-02 | CT_ITS ---
EXAMINATION: CT CERVICAL SPINE WITHOUT CONTRAST; UNENHANCED CT OF THE HEAD. CLINICAL INFORMATION: Head strike fall COMPARISON: CT head and cervical spine 03/07/2022. TECHNIQUE: Routine unenhanced CT of the head with multiple coronal and sagittal reformatted images; routine unenhanced CT of the cervical spine with multiple coronal and sagittal reformatted images. This CT examination was performed using dose optimization techniques as appropriate, variously including the following: *Automated exposure control *Adjustment of mA and/or kV according to patient size (this includes techniques or standardized protocols for targeted exams where dose is matched to indication/reason for exam; i.e. extremities or head) *Use of iterative reconstruction technique DLP: 975 mGy-cm FINDINGS: CT head: No intracranial hemorrhage, tumors or acute infarcts noted. The ventricles and sulci are normal in size and configuration. Bilateral ocular lens replacements are noted. No intracranial soft tissue inflammatory changes visualized. Dental amalgam is present and gives rise to scattering artifact partially obscures visualization of adjacent transaxial structures. No significant opacification of the visualized paranasal sinuses, mastoid air cells and middle ear cavities. CT cervical spine: No fractures or acute appearing subluxations noted. Vertebral body height and alignment are normal in appearance. Minimal anterior endplate osteophytosis is noted along the inferior margins of the C3, C4 and C5 vertebral bodies CT/CT head/brain wo IV con IMPRESSION: CT head: No acute intracranial abnormalities. CT cervical spine: No acute intracranial abnormalities.
--- NOTE | ~2023-10-02 | XR_ITS ---
EXAMINATION: XR chest 2V, XR shoulder RT min 2V, XR knee RT 2V, XR elbow RT 2V, XR humerus RT, XR knee LT 2V, XR elbow LT min 3V CLINICAL INFORMATION: Reason for Exam right rib pain s/p fall COMPARISON: CT head and cervical spine 10/02/2023, chest radiograph 01/14/2021 TECHNIQUE: 2 view series right knee; 2 view series left knee, 3 view series right elbow, 3 view series left elbow, 3 view series right shoulder, 3 view series right humerus, PA and lateral chest radiographs FINDINGS: Right knee: Scattered calcific popliteal artery calcifications are noted. No fractures or subluxations visualized. No prepatellar soft tissue inflammatory changes. No definitive suprapatellar bursal effusion. Left knee: No fractures or subluxations noted. No prepatellar soft tissue inflammatory changes. No definitive suprapatellar bursal effusion. Mild scattered atherosclerotic calcifications. Right elbow: Radial head appears intact. Minimal enthesopathic changes are noted along the lateral epicondyles. Minimal enthesopathic changes are noted at the olecranon at the insertion of the triceps. No joint effusion visualized. No soft tissue inflammatory changes noted. Left elbow: The radial head appears intact. No joint effusion noted. No fractures visualized. Minimal enthesopathic changes of the olecranon. Right shoulder: Normal glenohumeral and acromioclavicular joint spacing and alignment. Well-corticated undulating chronic appearing posttraumatic deformities of the posterolateral segments of the right sixth and seventh ribs are noted. Within the visualized right ribs, no displaced rib fractures identified in the visualized right lung is clear. Minimal enthesopathic changes are noted at the supraspinatus insertion upon the greater tuberosity. Right humerus: No fractures of the right humerus visualized. Diffuse osteopenia is noted. CHEST: Normal appearance of the cardia mediastinal structures. No effusions or pneumothoraces. Normal pattern of pulmonary vasculature. No focal pulmonary consolidation. Chronic appearing posterior manic deformities of the posterolateral segments of the left 8 and possibly ninth rib are noted. Minimal multilevel anterior endplate osteophytosis of the thoracic spine. Post cystectomy clips noted on the lateral radiograph. XR/XR shoulder RT min 2V IMPRESSION: Right knee: *No acute abnormalities. Left knee: *No acute abnormalities. Right elbow: *No acute abnormalities. Left elbow: *No acute abnormalities. Right shoulder, right humerus and chest radiograph: *Findings suspicious for chronic posttraumatic deformities of bilateral posterolateral rib segments as detailed above. No acute rib fractures identified. *No acute cardiopulmonary abnormalities. Lungs clear. No effusions or pneumothoraces. *No acute abnormalities of the right humerus and right shoulder.
--- NOTE | ~2023-10-02 | XR_ITS ---
EXAMINATION: XR HIP, LEFT CLINICAL INFORMATION: Fall. Pain. COMPARISON: None available. TECHNIQUE: Two views of the left hip. FINDINGS: The bone mineralization is normal. Joint spaces are fairly well maintained for patient age. No fracture is seen. The soft tissues are unremarkable. XR/XR hip LT w PEL1V IMPRESSION: No significant abnormality identified.
[2023-10-02 13:57] VITALS: BP 128/50; PULSE 75; RESP 16; TEMP 36.8; O2SAT 97; BMI 27.8
--- NOTE | 2023-10-02 13:58 | ED.GENADULT ---
HPI - General Adult General Chief complaint: Fall Stated complaint: Fall Sunday-multiple complaints Time Seen by Provider: 10/02/23 22:18 Source: patient and RN notes reviewed Mode of arrival: ambulatory Limitations: language barrier History of Present Illness ED Provider: Una Garcia PA-C HPI narrative: This is a 58-year-old female, with a past medical history of asthma, diabetes, CVA, HLD, hypertension, myocardial infarction, who presents emergency department complaints of diffuse body pain status post mechanical fall which occurred 2 days ago. Patient states that 2 days ago while she was standing in her kitchen she had worsening neuropathy in her hands or feet and this caused her to fall forward striking her head, and right side of her body. She states that she believes she lost consciousness for several seconds and her daughter found her on the ground. She states that since the fall she has had pain in her bilateral arms, left knee and left hip. She denies any severe headache, dizziness, blurred vision, chest pain, shortness of breath, abdominal pain, nausea, vomiting or diarrhea. She states that she went to an urgent care who who told her to come to the emergency room for further evaluation. No other complaints or concerns at this time. MD complaint: Fall Onset (ago): day(s) Location: face, pelvis, upper extremity and lower extremity Radiation: non-radiation Severity: moderate Quality: aching Pain Consistency: constant Relieving factors: none Exacerbating factors: none Associated symptoms: denies other symptoms Treatments prior to arrival: none Related Data Home Medications ?Medication ?Instructions ?Recorded ?Confirmed amlodipine 10 mg tablet 10 mg PO DAILY 02/10/21 09/13/23 aspirin 81 mg tablet,delayed 81 mg PO DAILY 02/10/21 09/13/23 release (Adult Low Dose Aspirin) atorvastatin 80 mg tablet 80 mg PO DAILY 02/10/21 09/13/23 gabapentin 100 mg capsule 100 mg PO DAILY 02/10/21 09/13/23 isosorbide mononitrate 30 mg 30 mg PO QAM 02/10/21 09/13/23 tablet,extended release 24 hr lisinopril 40 mg tablet 40 mg PO DAILY 02/10/21 09/13/23 loratadine 10 mg tablet 10 mg PO DAILY 02/10/21 09/13/23 mecobalamin (vitamin B12) 1,000 1,000 mcg PO DAILY 02/10/21 09/13/23 mcg chewable tablet metformin 500 mg tablet,extended 1,000 mg PO BID 02/10/21 09/13/23 release 24 hr metoprolol succinate 100 mg 100 mg PO DAILY 02/10/21 09/13/23 tablet,extended release 24 hr omeprazole 40 mg capsule,delayed 40 mg PO DAILY 02/10/21 09/13/23 release fluticasone propionate 220 2 puff inhalation BID 06/09/22 09/13/23 mcg/actuation HFA aerosol inhaler (Flovent HFA) Previous Rx's ?Medication ?Instructions ?Recorded acetaminophen 325 mg capsule 650 mg (2 x 325 mg) PO Q6H PRN 01/14/21 pain #20 caps ondansetron 4 mg disintegrating 4 mg PO ONCE PRN nausea and 05/10/21 tablet vomiting #10 tabs dulaglutide 1.5 mg/0.5 mL 1.5 mg (0.5 mL) subcut QWEEK 28 06/16/21 subcutaneous pen injector days #2 mL (Trulicity) insulin degludec 200 unit/mL (3 50 unit (0.25 mL) subcut QPM #9 mL 06/16/21 mL) subcutaneous pen (Tresiba FlexTouch U-200 insulin) lidocaine 5 % topical patch 2 patch topical DAILY #30 ea 03/07/22 (Lidoderm) insulin aspart U-100 100 unit/mL See Rx Instructions subcut TID #15 04/03/22 (3 mL) subcutaneous pen (Novolog mL FlexPen U-100 Insulin aspart) methylcellulose (laxative) 500 mg 500 mg PO DAILY #90 tabs 06/09/22 tablet (Citrucel) ibuprofen 400 mg tablet 400 mg PO Q6H PRN pain #20 tabs 11/06/22 docusate sodium 100 mg capsule 100 mg PO BEDTIME #90 caps 06/18/23 sennosides 8.6 mg tablet (Natural 17.2 mg (2 x 8.6 mg) PO BEDTIME 06/18/23 Senna Laxative) constipation #180 tabs celecoxib 200 mg capsule (Celebrex) 200 mg PO BID pain 30 days #60 caps 07/19/23 transport belt #1 ea 08/15/23 Allergies Allergy/AdvReac Type Severity Reaction Status Date / Time morphine [MORPHINE] Allergy Intermediate ITCHY, RASH Verified 10/02/23 14:03 Review of Systems Review of Systems: Yes all other systems are reviewed and are negative Constitutional: Constitutional: Reports as per [facility] Past Medical History Attestation statement: The following information was validated with the patient. Medical History Atherosclerotic cardiovascular disease Cardiomyopathy Type 2 diabetes mellitus with diabetic polyneuropathy History of CVA (cerebrovascular accident) Overweight HLD (hyperlipidemia) DM2 (diabetes mellitus, type 2) Asthma Hypertension Depression Myocardial infarction Surgical History Hx of cholecystectomy Hx of section Family History Family History Father No problems noted. Mother No problems noted. Social History Social History Household Members: Significant Other Alcohol intake: never Patient Tobacco Use Status: Former Tobacco user Advance Directives: No Advance Directives Information Provided: No Current occupational status: disabled Physical Exam ED Vital Signs: Vital Signs - 24 hr 10/02/23 13:57 10/02/23 20:44 10/02/23 23:47 Temperature 98.2 F 97.6 F 98.1 F Pulse Rate 75 63 74 Respiratory Rate 16 16 16 Blood Pressure 128/50 L 158/88 H 134/71 Pulse Oximetry 97 99 98 Oxygen Delivery Method Room Air Room Air Room Air BMI result Body Mass Index 27.8 Const General: cooperative, comfortable and no acute distress Orientation/consciousness: patient oriented x3 Limitations: no limitations [facility] Head: Yes normal to inspection, Yes normocephalic, Yes atraumatic, No Hernandez's sign, No occipital foramen tenderness, No palpable skull fracture and No raccoon eyes Ears: hearing grossly normal bilaterally and TM's normal bilaterally General nose exam: Normal external nose present Face and sinus: Yes normal facial exam Mouth: Normal oral and palatal mucosa present, oropharynx normal and moist mucous membranes Throat: Yes posterior oropharynx normal Eyes General: appearance normal, both eyes and all related structures Eyelids: Yes eyelids normal Conjunctivae: conjunctivae normal Sclerae: sclerae normal Pupils: Equal, round and reactive pupils present EOM: EOMs intact bilaterally Neck Neck: Yes normal visual inspection, Yes full ROM and Yes no lymphadenopathy Lymphatic: no lymphadenopathy noted Chest Other: No flail chest; no ecchymosis seen throughout the entire chest wall. Chest palpation & inspection: normal inspection of the chest and normal palpation of entire chest wall Resp Effort & Inspection: normal respiratory effort and able to speak in complete sentences Auscultation: clear to auscultation bilaterally, no crackles, no rales, no rhonchi and no wheezes Cardio Rate: regular rate Rhythm: regular rhythm Heart sounds: S1 normal heart sound present and S2 normal heart sound present GI Other: Abdomen is soft, nontender, nondistended, no ecchymosis seen throughout. Inspection: Yes normal to inspection Skin General skin exam: no rashes or lesions noted Trauma: no lacerations or abrasions Wounds: no wounds Neuro General: patient oriented x3 and moves all extremities Cranial nerves: Yes CN's II-XII intact bilaterally and Yes Equal, round and reactive pupils present Gait exam (Neuro): Normal gait present Motor exam (neuro): 5/5 motor strength present throughout Extrem Other: Right shoulder with diffuse tenderness throughout, no bony abnormality or ecchymosis. No hematoma noted. Full range of motion without difficulty. Left shoulder with no bony abnormality or swelling. No ecchymosis, diffusely tender throughout without any specific point tenderness. Full range of motion. Strong radial pulse bilaterally. Tenderness palpation along the anterior left hip, no hematoma, ecchymosis, or bony deformity seen. General: Yes normal to inspection Right upper extremity: normal to inspection Left upper extremity: normal to inspection Right lower extremity: normal to inspection Left lower extremity: normal to inspection Course Course Course Narrative: This is a Rapid Medical Examination (RME) performed by Henrietta Shaikh PA-C in triage. Full HPI, ROS, assessment and treatment plan per primary provider in the Main ED. 58 yo female hx of T2DM, cardiomyopathy, HTN, HDL here for eval of bilateral elbow, bilateral knee, and right rib pain s/p fall 2 days ago. admits to falling at home due to her LE neuropathy. +headstrike. +loc for unknown amount of time. no AC. on 81mg aspirin daily. denies preceding sx of chest pain, son, dizziness, sob, vision changes. ambulates w/ cane at baseline. here in wheelchair d/t knee pain. separator inserter strength intact/ equal bilaterally. no obvious bony deformities. abrasion over right olecranon. Plan: imaging, basic labs, cpk ordered. Reevaluation(s) Reevaluation #1: Left hip x-ray unremarkable. Discussed findings with patient and staff interpreter at bedside. Answered all questions, given return precautions. She understands and agrees with plan. Patient stable for discharge. Time: 23:37 Medical Decision Making Medical Decision Making [facility] Narrative: This is a 58-year-old female the past medical history of asthma, depression, diabetes, peripheral neuropathy, CVA, hyperlipidemia, hypertension, myocardial infarction, who presents emergency department for evaluation after a mechanical fall which occurred 2 days ago. On arrival, blood pressure 128/50, all other vital signs within normal limits. She is neurologically intact. Patient has been in the emergency department for approximately 9 hours prior to my assessment, and patient reports diffuse body aches. There are multiple x-rays ordered prior to my evaluation by my colleague, which include right knee, left knee, right elbow, left elbow, right shoulder, right humerus, and chest, which all reveal no acute abnormalities. Patient has exquisite tenderness palpation along the left anterior hip, given significance of pain, will obtain x-ray to rule out fracture. Patient is nontoxic appearing, neurologically intact. CT head and neck unremarkable. X-ray of left hip ordered and pending at this time. Differential Diagnosis Differential Diagnoses: The differential diagnosis associated with the presentation includes Fracture, contusion, sprain, strain, ICH, SDH Lab Data [facility] Lab Attestation statement: I reviewed the patient's lab results. No leukocytosis, stable H&H, chemistry nondiagnostic 10/02/23 14:25 10/02/23 14:25 Labs: Lab Results 10/02/23 Range/Units 14:25 WBC 7.4 (4.8-10.8) X10*3/uL RBC 4.56 (4.20-5.50) X10*6/uL Hgb 12.4 (12.0-16.0) g/dl Hct 38.9 (37.0-47.0) % MCV 85.3 (80.0-98.0) fL MCH 27.2 (27.0-33.0) pg MCHC 31.9 (31.0-35.0) g/dl RDW 12.9 (11.0-16.0) % Plt Count 277 (160-400) X10*3/uL MPV 10.3 (9.4-12.3) fL Immature Gran % (Auto) 0.3 (0.0-0.4) % Neut % (Auto) 52.8 (45-73) % Lymph % (Auto) 37.8 (20-40) % [place] % (Auto) 6.2 (2-11) % Eos % (Auto) 2.4 (0-4) % Baso % (Auto) 0.5 (0-2) % Lymph # (Auto) 2.8 (1.2-4.9) X10*3/uL [place] # (Auto) 0.5 (0.1-1.2) X10*3/uL Eos # (Auto) 0.2 (0.0-0.4) X10*3/uL Baso # (Auto) 0.0 (0.0-0.2) X10*3/uL Abs Immat Gran (auto) 0.02 (0.00-0.03) X10*3/uL Absolute Neuts (auto) 3.9 (2.0-8.3) x10*3/uL Absolute Nucleated RBC 0.000 (0.0-0.012) X10*3/uL Nucleated RBC % (auto) 0.0 (0.0-0.2) /100WBC Sodium 136 (135-145) mmol/L Potassium 4.7 (3.3-5.1) mmol/L Chloride 103 (96-108) mmol/L Carbon Dioxide 21 L (22-29) mmol/L Anion Gap 17 (12-20) BUN 15 (9-16) mg/dL Creatinine 0.70 (0.5-1.4) mg/dL Estim Creat Clear Calc 80.7 Estimated GFR > 60 Random Glucose 175 H (60-115) mg/dL Calcium 10.0 (8.4-10.2) mg/dL Magnesium 1.9 (1.6-2.6) mg/dL Total Bilirubin 1.0 (0.0-1.0) mg/dL AST 18 (5-31) U/L ALT 19 (0-31) U/L Alkaline Phosphatase 71 (39-117) U/L Total Creatine Kinase 216 H (26-140) U/L Total Protein 7.3 (6.5-8.0) g/dL Albumin 3.8 (3.5-5.0) g/dL Radiology Impression Discussion of test interpretation with radiology: I have reviewed the radiologist's reading. Radiologist Impression: XR/XR shoulder RT min 2V IMPRESSION: Right knee: *No acute abnormalities. Left knee: *No acute abnormalities. Right elbow: *No acute abnormalities. Left elbow: *No acute abnormalities. Right shoulder, right humerus and chest radiograph: *Findings suspicious for chronic posttraumatic deformities of bilateral posterolateral rib segments as detailed above. No acute rib fractures identified. *No acute cardiopulmonary abnormalities. Lungs clear. No effusions or pneumothoraces. *No acute abnormalities of the right humerus and right shoulder. EXAMINATION: XR HIP, LEFT CLINICAL INFORMATION: Fall. Pain. COMPARISON: None available. TECHNIQUE: Two views of the left hip. FINDINGS: The bone mineralization is normal. Joint spaces are fairly well maintained for patient age. No fracture is seen. The soft tissues are unremarkable. XR/XR hip LT w PEL1V IMPRESSION: No significant abnormality identified. Dictated By: Trace Hansen COMPARISON: CT head and cervical spine 03/07/2022. TECHNIQUE: Routine unenhanced CT of the head with multiple coronal and sagittal reformatted images; routine unenhanced CT of the cervical spine with multiple coronal and sagittal reformatted images. This CT examination was performed using dose optimization techniques as appropriate, variously including the following: *Automated exposure control *Adjustment of mA and/or kV according to patient size (this includes techniques or standardized protocols for targeted exams where dose is matched to indication/reason for exam; i.e. extremities or head) *Use of iterative reconstruction technique DLP: 975 mGy-cm FINDINGS: CT head: No intracranial hemorrhage, tumors or acute infarcts noted. The ventricles and sulci are normal in size and configuration. Bilateral ocular lens replacements are noted. No intracranial soft tissue inflammatory changes visualized. Dental amalgam is present and gives rise to scattering artifact partially obscures visualization of adjacent transaxial structures. No significant opacification of the visualized paranasal sinuses, mastoid air cells and middle ear cavities. CT cervical spine: No fractures or acute appearing subluxations noted. Vertebral body height and alignment are normal in appearance. Minimal anterior endplate osteophytosis is noted along the inferior margins of the C3, C4 and C5 vertebral bodies CT/CT cervical spine wo IV con IMPRESSION: CT head: No acute intracranial abnormalities. CT cervical spine: No acute intracranial abnormalities. Dictated By: Luis F Mccall MD Discharge Plan Discharge Clinical Impression: Fall, Muscle contusion Patient Disposition: Home, Self-Care Instructions: Contusion in Adults (ED), Fall Prevention (ED), Hip Contusion (ED) Additional Instructions: You were seen in the emergency department after a fall. Your x-rays today do not show any new injury from the fall. Your CT scan of your head in your neck were normal. Your blood work was reassuring. Follow-up with your primary care physician regarding this visit as they can refer you to physical therapy and make sure that you have the proper resources at home. If any new or worsening symptoms occur including but not limited to headaches, dizziness, chest pain, shortness of breath, please return for re-evaluation. Prescriptions: No Action Trulicity 1.5 mg/0.5 mL pen injector 1.5 mg subcut QWEEK 28 Days Qty: 2 6RF insulin aspart U-100 [Novolog FlexPen U-100 Insulin] 100 unit/mL (3 mL) insulin pen See Rx Instructions subcut TID Qty: 15 0RF Rx Instructions: 6 units for breakfast, 6 units for lunch and 10 units. subcut 3 times a day; sennosides [Natural Senna Laxative] 8.6 mg tablet 17.2 mg PO BEDTIME Qty: 180 3RF docusate sodium 100 mg capsule 100 mg PO BEDTIME Qty: 90 3RF celecoxib [Celebrex] 200 mg capsule 200 mg PO BID 30 Days Qty: 60 3RF acetaminophen 325 mg capsule 650 mg PO Q6H PRN (Reason: pain) Qty: 20 0RF ondansetron 4 mg tablet,disintegrating 4 mg PO ONCE PRN (Reason: nausea and vomiting) Qty: 10 0RF lidocaine [Lidoderm] 5 % adhesive patch,medicated 2 patch topical DAILY Qty: 30 0RF Rx Instructions: leave on most painful area for up to 12 hrs ibuprofen 400 mg tablet 400 mg PO Q6H PRN (Reason: pain) Qty: 20 0RF metoprolol succinate 100 mg tablet extended release 24 hr 100 mg PO DAILY atorvastatin 80 mg tablet 80 mg PO DAILY mecobalamin (vitamin B12) 1,000 mcg tablet,chewable 1,000 mcg PO DAILY isosorbide mononitrate 30 mg tablet extended release 24 hr 30 mg PO QAM lisinopril 40 mg tablet 40 mg PO DAILY loratadine 10 mg tablet 10 mg PO DAILY aspirin [Adult Low Dose Aspirin] 81 mg tablet,delayed release (DR/EC) 81 mg PO DAILY omeprazole 40 mg capsule,delayed release(DR/EC) 40 mg PO DAILY metformin 500 mg tablet extended release 24 hr 1,000 mg PO BID gabapentin 100 mg capsule 100 mg PO DAILY amlodipine 10 mg tablet 10 mg PO DAILY fluticasone propionate [Flovent HFA] 220 mcg/actuation HFA aerosol inhaler 2 puff inhalation BID Citrucel 500 mg tablet 500 mg PO DAILY Qty: 90 2RF Rx Instructions: take it with full glass of water Tresiba FlexTouch U-200 200 unit/mL (3 mL) insulin pen 50 unit subcut QPM Qty: 9 6RF (DME) transport belt See Rx Instructions .Route .MEDSUPPLY Qty: 1 0RF Rx Instructions: As directed Print Language: Andorran
[2023-10-02 14:28] LABS: MANUAL DIFF FLAG NO
[2023-10-02 14:30] LABS: Basophils Percent Auto 0.5 % (0-2); Eosinophils Absolute Auto 0.2 X10*3/uL (0.0-0.4); Eosinophils Percent Auto 2.4 % (0-4); Hematocrit 38.9 % (37.0-47.0); Hemoglobin 12.4 g/dl (12.0-16.0); Imm Gran Abs Auto 0.02 X10*3/uL (0.00-0.03); Imm Gran Pct Auto 0.3 % (0.0-0.4); Lymphocytes Absolute Auto 2.8 X10*3/uL (1.2-4.9); Lymphocytes Percent Auto 37.8 % (20-40); Mean Corpuscular HGB Conc 31.9 g/dl (31.0-35.0); Mean Corpuscular Hemoglobin 27.2 pg (27.0-33.0); Mean Corpuscular Volume 85.3 fL (80.0-98.0); Mean Platelet Volume 10.3 fL (9.4-12.3); Monocytes Absolute Auto 0.5 X10*3/uL (0.1-1.2); Monocytes Percent Auto 6.2 % (2-11); Neutrophils Absolute Auto 3.9 x10*3/uL (2.0-8.3); Neutrophils Percent Auto 52.8 % (45-73); Platelet Count 277 X10*3/uL (160-400); Red Blood Count 4.56 X10*6/uL (4.20-5.50); Red Cell Distribution Width 12.9 % (11.0-16.0); White Blood Count 7.4 X10*3/uL (4.8-10.8)
[2023-10-02 14:52] LABS: Alanine Aminotransferase 19 U/L (0-31); Albumin Level 3.8 g/dL (3.5-5.0); Alkaline Phosphatase 71 U/L (39-117); Anion Gap 17 (12-20); Aspartate Amino Transferase 18 U/L (5-31); Blood Urea Nitrogen 15 mg/dL (9-16); Carbon Dioxide 21 mmol/L (22-29); Chloride 103 mmol/L (96-108); Creatinine Clr Calc Pharmacy 80.7; Estimated Glomerular Filt Rate > 60; Glucose Random 175 mg/dL (60-115); Magnesium 1.9 mg/dL (1.6-2.6); Potassium 4.7 mmol/L (3.3-5.1); Sodium 136 mmol/L (135-145); Total Protein 7.3 g/dL (6.5-8.0)
[2023-10-02 20:44] VITALS: BP 158/88; PULSE 63; RESP 16; TEMP 36.4; O2SAT 99
[2023-10-02 23:47] VITALS: BP 134/71; PULSE 74; RESP 16; TEMP 36.7; O2SAT 98
[2023-10-03 00:39] VITALS: BP 134/71; PULSE 74; RESP 16; TEMP 36.7; O2SAT 98
== END 2023-10-03 00:41 | disposition home or self-care (01) ==
PROVIDERS: Physician Assistant Medical; Emergency Provider Emergency Medicine; PCP Internal Medicine
DX: S70.01XA Contusion of right hip, initial encounter (principal); W22.03XA Walked into furniture, initial encounter; Y93.9 Activity, unspecified; Y92.000 Kitchen of unspecified non-institutional (private) residence as the place of occurrence of the external cause; Y99.9 Unspecified external cause status; R51.9 Headache, unspecified; M25.562 Pain in left knee; M25.561 Pain in right knee; M25.511 Pain in right shoulder; M25.522 Pain in left elbow; M25.521 Pain in right elbow
CPT/HCPCS: 36415; 70450; 71046; 72125; 73030; 73060; 73070; 73080; 73502; 73560; 80053; 82550; 83735; 85025; 99282; 99284

== ENCOUNTER 2023-10-04 09:30 | Outpatient (REF) | payer MEDICAID, SELFPAY ==
[2023-10-06 21:22] LABS: TS Negative Control Passed; TS Panel A 1; TS Panel B 1; TS Positive Control Passed; TSpotTB Negative (Negative)
== END 2023-10-04 09:31 | disposition home or self-care (01) ==
LOC: HO.LAB 09:30
PROVIDERS: PCP Internal Medicine; Visit Provider Internal Medicine
DX: Z11.1 Encounter for screening for respiratory tuberculosis (principal)
CPT/HCPCS: 36415; 86481

== ENCOUNTER 2023-10-30 13:00 | Outpatient (RCR) | payer MEDICAID, SELFPAY ==
--- NOTE | 2023-09-25 12:45 | MHC.PT.EP ---
[facility] [place] Office [place] Office [place] Office [address] Radha Myers [address] [phone] F: [phone] F: [phone] F: [phone] F: [phone] Physical Therapy Plan of Care Date of Evaluation: 09/25/23 Date of Surgery: NA Diagnosis: R KNEE ARTHRITIS Assessment: Pt IS 58 YO F REFERRED TO PT FROM [facility]THO ([facility]) WITH R KNEE PAIN. Pt HAD A CORTISONE INJECTION IN R KNEE WITH SOME RELIEF. Pt WITH C/O PAIN IN VARIOUS AREAS. PRESENTS WITH R KNEE ROM AND LE STRENGTH THAT TESTS OUT WFLS, BUT REPORTS (WITH CARROTING MACHINE OPERATOR/NIECE PRESENT FOR EVAL) THAT SHE HAS MULTIPLE FALLS AND DIFFICULTY WITH GT. CARROTING MACHINE OPERATOR REPORTS Pt HAS ONLY 3 HOURS OF CARROTING MACHINE OPERATOR ASSIST PER DAY AND GOES TO DAY PROGRAM FROM 10-2. SHE IS ALONE THE REST OF THE DAY UNTIL HER SPOUSE AND 22 YO DTR COME HOME FROM WORK AT 10PM. Pt HAS HAD SOME PT IN PAST WITH LIMITED IMPROVEMENT (AND CARROTING MACHINE OPERATOR REPORT THAT SHE WAS PUSHED TOO HARD AND HAD SOME PAIN). OF NOTE, Pt'S CARROTING MACHINE OPERATOR TENDS TO SPEAK FOR HER AND WHEN SPOKEN TO DIRECTLY (IN [facility]ARIC) Pt TENDS TO DEFER TO HER CARROTING MACHINE OPERATOR FOR ANSWERS. WILL TRY PT 1X/WK FOR 1 MONTH TO ASSESS COMPLIANCE AND RESPONSE TO PT Frequency and Duration: The patient will be seen 1X/WK X 8 WKS Short Term Goals: 1. INCREASED AWARENESS KNEE CARE 2. GT WITH ROLLATOR/WW WITH REPORTS OF DECREASED LE BUCKLING 3. I TRANSFERS T/O [facility] Goals: 1. I HEP WITH DC EX PLAN 2. DECREASED KNEE PAIN AT LEAST 50% WITH ADLS Treatment Plan: Modalities to reduce pain, spasms and effusion. Manual therapy to restore motion and function. Therapeutic exercise to improve strength and flexibility. Neuromuscular re-education for posture and balance. Therapeutic activities to return to functional activities of daily living. Electronically signed by: PRESTON ENGLISH PT Please sign and return to therapist. Thank you for your referral.
--- NOTE | 2023-11-09 12:41 | MHC.PT.DC ---
[facility] [place] Office [place] Office [place] Office [address] Radha Myers [address] [phone] F: [phone] F: [phone] F: [phone] F: [phone] Physical Therapy Discharge Report Diagnosis: R KNEE ARTHRITIS Date of Surgery: NA Date of Evaluation: 09/25/23 Date of Discharge: 11/09/23 Treatments to Date: 3 Cancellations to Date: 1 No Shows to Date: Discharge Status: Patient Elected to Stop Discharge Summary: PER ASSESSMENT FROM LAST SESSION Pt REPORTS VERY TIRED TODAY (YAWNING/SLEEPY). NIECE REPORTS Pt HAS NOT BEEN SLEEPING WELL (TRYING TO GET SLEEPING MED). TO SEE PCP IN 2 WEEKS, AWAITING NEURO CONSULT. WILL SEE 1X/WK X 2 WKS (UNTIL PCP FU). CAN CONTINUE WITH EX CLASS AT DAY PROGRAM' RECEIVED MESSAGE THAT Pt IS NOW HAVING HOME PT Electronically signed by: PRESTON ENGLISH PT Please sign and return to therapist. Thank you for your referral.
== END 2023-11-09 12:41 | disposition home or self-care (01) ==
LOC: HO.PT 13:00
PROVIDERS: PCP Internal Medicine; Visit Provider Physician Assistant
DX: M17.11 Unilateral primary osteoarthritis, right knee (principal)
CPT/HCPCS: 97110; 97161; 97535

== ENCOUNTER 2023-11-26 19:11 | Emergency (ER) | payer MEDICAID, SELFPAY ==
[2023-11-26 19:22] VITALS: BP 126/60; BP 138/74; PULSE 70; PULSE 72; PULSE 74; RESP 16; RESP 18; TEMP 36.8; O2SAT 93; O2SAT 94; O2SAT 95; BMI 28.2
--- NOTE | 2023-11-26 19:38 | ECG_ITS ---
Test Reason : dizziness Blood Pressure : / mmHG Vent. Rate : 070 BPM Atrial Rate : 070 BPM P-R Int : 268 ms QRS Dur : 100 ms QT Int : 404 ms P-R-T Axes : 058 015 047 degrees QTc Int : 436 ms Sinus rhythm with 1st degree A-V block Otherwise normal ECG When compared with ECG of 10-MAY-2021 15:53, No significant change was found Referred By: Amarilis Bryant Electronically Signed By:SHANNON ALDANA MD
[2023-11-26 19:56] LABS: MANUAL DIFF FLAG NO
[2023-11-26 19:57] LABS: Basophils Percent Auto 0.3 % (0-2); Eosinophils Absolute Auto 0.3 X10*3/uL (0.0-0.4); Eosinophils Percent Auto 2.9 % (0-4); Hematocrit 32.5 % (37.0-47.0); Hemoglobin 10.7 g/dl (12.0-16.0); Imm Gran Abs Auto 0.02 X10*3/uL (0.00-0.03); Imm Gran Pct Auto 0.2 % (0.0-0.4); Lymphocytes Absolute Auto 3.7 X10*3/uL (1.2-4.9); Mean Corpuscular HGB Conc 32.9 g/dl (31.0-35.0); Mean Corpuscular Hemoglobin 27.2 pg (27.0-33.0); Mean Corpuscular Volume 82.7 fL (80.0-98.0); Mean Platelet Volume 10.2 fL (9.4-12.3); Monocytes Absolute Auto 0.7 X10*3/uL (0.1-1.2); Monocytes Percent Auto 8.3 % (2-11); Neutrophils Absolute Auto 3.9 x10*3/uL (2.0-8.3); Neutrophils Percent Auto 45.3 % (45-73); Platelet Count 324 X10*3/uL (160-400); Red Blood Count 3.93 X10*6/uL (4.20-5.50); White Blood Count 8.7 X10*3/uL (4.8-10.8)
[2023-11-26 20:17] LABS: Alanine Aminotransferase 18 U/L (0-31); Albumin Level 3.8 g/dL (3.5-5.0); Alkaline Phosphatase 69 U/L (39-117); Anion Gap 15 (12-20); Aspartate Amino Transferase 15 U/L (5-31); Bilirubin Total 0.7 mg/dL (0.0-1.0); Blood Urea Nitrogen 29 mg/dL (9-16); Carbon Dioxide 19 mmol/L (22-29); Chloride 106 mmol/L (96-108); Creatinine Clr Calc Pharmacy 56.2; Estimated Glomerular Filt Rate 54; Glucose Random 217 mg/dL (60-115); Magnesium 1.8 mg/dL (1.6-2.6); Potassium 5.5 mmol/L (3.3-5.1); Sodium 134 mmol/L (135-145); Total Protein 6.9 g/dL (6.5-8.0)
[2023-11-26 20:24] LABS: Troponin-I High Sensitivity 8.1 ng/L (<3.5-17.0)
[2023-11-26 20:43] LABS: Influenza A PCR NEGATIVE (Negative); Influenza B PCR NEGATIVE (Negative); Resp Syncy Virus RNA Qual PCR NEGATIVE (Negative); SARS COV2 PCR INHOUSE NEGATIVE (Negative)
[2023-11-26 21:05] LABS: Appearance Urine Clear; Color Urine Yellow; Glucose Urine UA 100 mg/dL (Negative); Leukocyte Esterase Urine Negative (Negative); Nitrite Urine Negative (Negative); Urine Blood Negative (Negative); Urine Ketones Negative (Negative); Urine Protein Negative (Neg-Trace)
--- NOTE | 2023-11-26 21:31 | PC.NURSE ---
pt resting [place] on the stretcher at this time
[2023-11-26 22:39] VITALS: BP 118/50; PULSE 68; RESP 18; TEMP 36.6; O2SAT 95
--- NOTE | 2023-11-26 22:43 | MHC.EDTECH ---
patient walked to restroom with stand by assist. VSS. patient stating pain in abdomen.
[2023-11-27 00:33] LABS: Anion Gap 11 (12-20); Blood Urea Nitrogen 23 mg/dL (9-16); Calcium 9.8 mg/dL (8.4-10.2); Carbon Dioxide 25 mmol/L (22-29); Chloride 105 mmol/L (96-108); Creatinine Clr Calc Pharmacy 66.3; Estimated Glomerular Filt Rate > 60; Glucose Random 182 mg/dL (60-115); Potassium 4.8 mmol/L (3.3-5.1); Sodium 136 mmol/L (135-145)
--- NOTE | 2023-11-27 00:36 | ED_ITS ---
HPI - Dizziness General Chief Complaint: Weakness Stated Complaint: DIZZINESS/BLURRED VISION PER EMS Time Seen by Provider: 11/26/23 23:28 Source: patient, EMS, old records reviewed and telecom assistant Mode of arrival: EMS Limitations: no limitations History of Present Illness ED Provider: MARCO HPI Narrative: 58 yo female with PMH of aortic stenosis, cardiomyopathy, DM2, arthritis, HLD, HTN here with c/o dizziness upon standing but no numbness, weakness, headaches. She is sitting in the stretcher appears in no distress. She has no CP/SOB, GIB. She has no symptoms when sitting. No n/v/d. MD elicited complaint: dizziness Onset (ago): day(s) (2) Timing: gradual onset and intermittent Severity: mild Description: lightheadedness Context: change in body position History of similar symptoms: Yes Exacerbating factors: movement/ambulation and change in body position Relieving factors: remaining still Associated symptoms: other (malaise) Related Data Home Medications ?Medication ?Instructions ?Recorded ?Confirmed amlodipine 10 mg tablet 10 mg PO DAILY 02/10/21 09/13/23 aspirin 81 mg tablet,delayed 81 mg PO DAILY 02/10/21 09/13/23 release (Adult Low Dose Aspirin) atorvastatin 80 mg tablet 80 mg PO DAILY 02/10/21 09/13/23 gabapentin 100 mg capsule 100 mg PO DAILY 02/10/21 09/13/23 isosorbide mononitrate 30 mg 30 mg PO QAM 02/10/21 09/13/23 tablet,extended release 24 hr lisinopril 40 mg tablet 40 mg PO DAILY 02/10/21 09/13/23 loratadine 10 mg tablet 10 mg PO DAILY 02/10/21 09/13/23 mecobalamin (vitamin B12) 1,000 1,000 mcg PO DAILY 02/10/21 09/13/23 mcg chewable tablet metformin 500 mg tablet,extended 1,000 mg PO BID 02/10/21 09/13/23 release 24 hr metoprolol succinate 100 mg 100 mg PO DAILY 02/10/21 09/13/23 tablet,extended release 24 hr omeprazole 40 mg capsule,delayed 40 mg PO DAILY 02/10/21 09/13/23 release fluticasone propionate 220 2 puff inhalation BID 06/09/22 09/13/23 mcg/actuation HFA aerosol inhaler (Flovent HFA) Previous Rx's ?Medication ?Instructions ?Recorded acetaminophen 325 mg capsule 650 mg (2 x 325 mg) PO Q6H PRN 01/14/21 pain #20 caps ondansetron 4 mg disintegrating 4 mg PO ONCE PRN nausea and 05/10/21 tablet vomiting #10 tabs dulaglutide 1.5 mg/0.5 mL 1.5 mg (0.5 mL) subcut QWEEK 28 06/16/21 subcutaneous pen injector days #2 mL (Trulicity) insulin degludec 200 unit/mL (3 50 unit (0.25 mL) subcut QPM #9 mL 06/16/21 mL) subcutaneous pen (Tresiba FlexTouch U-200 insulin) lidocaine 5 % topical patch 2 patch topical DAILY #30 ea 03/07/22 (Lidoderm) insulin aspart U-100 100 unit/mL See Rx Instructions subcut TID #15 04/03/22 (3 mL) subcutaneous pen (Novolog mL FlexPen U-100 Insulin aspart) methylcellulose (laxative) 500 mg 500 mg PO DAILY #90 tabs 06/09/22 tablet (Citrucel) ibuprofen 400 mg tablet 400 mg PO Q6H PRN pain #20 tabs 11/06/22 docusate sodium 100 mg capsule 100 mg PO BEDTIME #90 caps 06/18/23 sennosides 8.6 mg tablet (Natural 17.2 mg (2 x 8.6 mg) PO BEDTIME 06/18/23 Senna Laxative) constipation #180 tabs celecoxib 200 mg capsule (Celebrex) 200 mg PO BID pain 30 days #60 caps 07/19/23 transport belt #1 ea 08/15/23 meclizine 25 mg tablet 25 mg PO TID PRN dizziness #30 tabs 11/27/23 Allergies Allergy/AdvReac Type Severity Reaction Status Date / Time morphine [MORPHINE] Allergy Intermediate ITCHY, RASH Verified 11/26/23 19:28 Review of Systems 2 Review of Systems: Constitutional : No Fever, No Chills, No Fatigue ENT/Mouth : No sore throat, No Rhinorrhea Eyes: No Eye Pain, No Swelling, No Redness Cardiovascular : No Chest Pain, No SOB, No Dyspnea on Exertion Respiratory : No Cough, No Sputum Gastrointestinal : No Nausea, No Vomiting, No Diarrhea, No abdominal Pain Genitourinary : No Dysuria, No Urinary Frequency, No Hematuria, Musculoskeletal : No joint pain, No Myalgias, No Joint Swelling Skin : No Skin Lesions, No rash Neuro : No Weakness, No Numbness, pos Dizziness, no Headache Psych : No Anxiety/Panic, No Depression All other systems reviewed and are negative [facility] Past Medical History Attestation statement: The following information was validated with the patient. Source: old records reviewed Medical History Atherosclerotic cardiovascular disease Cardiomyopathy Type 2 diabetes mellitus with diabetic polyneuropathy History of CVA (cerebrovascular accident) Overweight HLD (hyperlipidemia) DM2 (diabetes mellitus, type 2) Asthma Hypertension Depression Myocardial infarction Surgical History Hx of cholecystectomy Hx of section Family History Family History Father No problems noted. Mother No problems noted. Social History Social History Household Members: Significant Other Alcohol intake: never Patient Tobacco Use Status: Former Tobacco user Smoked in Last 30 Days: No Use of substances other than those prescribed or required for medical reasons: No Advance Directives: No Advance Directives Information Provided: No Do you have a plan to hurt others: No Plan Patient : No Current occupational status: disabled Physical Exam 2 Vital Signs: Vital Signs: Last Vital Signs Temp 97.9 F 11/26/23 22:39 Pulse 68 11/26/23 22:39 Resp 18 11/26/23 22:39 BP 118/50 L 11/26/23 22:39 Pulse Ox 95 11/26/23 22:39 O2 Del Method Room Air 11/26/23 22:39 BMI result Body Mass Index 28.2 Appearance: Alert. Oriented X3. No acute distress. Watching TV in no distress Eyes: Pupils equal, round and reactive to light. ENT: Pharynx normal. Neck: Normal inspection. Neck supple. CVS: Normal heart rate and rhythm. Pulses normal. Respiratory: No respiratory distress. Breath sounds normal. Abdomen: Soft and nontender. Skin: Skin warm and dry. Normal skin color. Normal skin turgor. Extremities: No lower extremity edema. No calf ttp Neuro: Oriented X 3. No motor deficit. No sensory deficit. Course Course Course Narrative: negative orthostatic VS, mildly dizzy with standing no sig change in hemoglobin with 24+ hours of symptoms Medical Decision Making Medical Decision Making [facility] Narrative: 58 yo female with PMH of aortic stenosis, cardiomyopathy, DM2, arthritis, HLD, HTN here with c/o dizziness when standing no CP/SOB no GIB symptoms, no focal deficits at this time doubt she has stroke given lack of symptoms, no CP or dyspnea to suggest ACS/PE. She denies GIB symptoms will obtain basic labs and ortho VS - if negative will DC home with PCP follow up Differential Diagnosis Differential Diagnoses: The differential diagnosis associated with the presentation includes dizziness, anemia, weakness no focal deficits only with standing doubt posterior stroke Admission/Observation Consideration of admission/observation: Escalation of care including admission/observation considered work up negative stable for DC mild anemia will need to repeat CBC with PCP Lab Data [facility] Lab Attestation statement: I reviewed the patient's lab results. 11/26/23 19:50 11/27/23 00:10 Labs: Lab Results 11/26/23 11/26/23 11/26/23 Range/Units 19:50 20:02 20:50 WBC 8.7 (4.8-10.8) X10*3/uL RBC 3.93 L (4.20-5.50) X10*6/uL Hgb 10.7 L (12.0-16.0) g/dl Hct 32.5 L (37.0-47.0) % MCV 82.7 (80.0-98.0) fL MCH 27.2 (27.0-33.0) pg MCHC 32.9 (31.0-35.0) g/dl RDW 13.0 (11.0-16.0) % Plt Count 324 (160-400) X10*3/uL MPV 10.2 (9.4-12.3) fL Immature Gran % (Auto) 0.2 (0.0-0.4) % Neut % (Auto) 45.3 (45-73) % Lymph % (Auto) 43.0 H (20-40) % [place] % (Auto) 8.3 (2-11) % Eos % (Auto) 2.9 (0-4) % Baso % (Auto) 0.3 (0-2) % Lymph # (Auto) 3.7 (1.2-4.9) X10*3/uL [place] # (Auto) 0.7 (0.1-1.2) X10*3/uL Eos # (Auto) 0.3 (0.0-0.4) X10*3/uL Baso # (Auto) 0.0 (0.0-0.2) X10*3/uL Abs Immat Gran (auto) 0.02 (0.00-0.03) X10*3/uL Absolute Neuts (auto) 3.9 (2.0-8.3) x10*3/uL Absolute Nucleated RBC 0.000 (0.0-0.012) X10*3/uL Nucleated RBC % (auto) 0.0 (0.0-0.2) /100WBC Sodium 134 L (135-145) mmol/L Potassium 5.5 H (3.3-5.1) mmol/L Chloride 106 (96-108) mmol/L Carbon Dioxide 19 L (22-29) mmol/L Anion Gap 15 (12-20) BUN 29 H (9-16) mg/dL Creatinine 1.05 (0.5-1.4) mg/dL Estim Creat Clear Calc 56.2 Estimated GFR 54 Random Glucose 217 H (60-115) mg/dL Calcium 10.0 (8.4-10.2) mg/dL Magnesium 1.8 (1.6-2.6) mg/dL Total Bilirubin 0.7 (0.0-1.0) mg/dL AST 15 (5-31) U/L ALT 18 (0-31) U/L Alkaline Phosphatase 69 (39-117) U/L Troponin I High Sens 8.1 (<3.5-17.0) ng/L Total Protein 6.9 (6.5-8.0) g/dL Albumin 3.8 (3.5-5.0) g/dL Urine Color Yellow Urine Appearance Clear Urine pH 6.0 (5.0-9.0) Ur Specific [place] 1.020 (1.005-1.025) Urine Protein Negative (Neg-Trace) mg/dL Urine Glucose (UA) 100 H (Negative) mg/dL Urine Ketones Negative (Negative) mg/dL Urine Blood Negative (Negative) Urine Nitrite Negative (Negative) Ur Leukocyte Esterase Negative (Negative) Influenza Type A (PCR) NEGATIVE (Negative) Influenza Type B (PCR) NEGATIVE (Negative) RSV RNA Qual (PCR) NEGATIVE (Negative) SARS-CoV-2 RNA (RT-PCR) NEGATIVE (Negative) 11/27/23 Range/Units 00:10 WBC (4.8-10.8) X10*3/uL RBC (4.20-5.50) X10*6/uL Hgb (12.0-16.0) g/dl Hct (37.0-47.0) % MCV (80.0-98.0) fL MCH (27.0-33.0) pg MCHC (31.0-35.0) g/dl RDW (11.0-16.0) % Plt Count (160-400) X10*3/uL MPV (9.4-12.3) fL Immature Gran % (Auto) (0.0-0.4) % Neut % (Auto) (45-73) % Lymph % (Auto) (20-40) % [place] % (Auto) (2-11) % Eos % (Auto) (0-4) % Baso % (Auto) (0-2) % Lymph # (Auto) (1.2-4.9) X10*3/uL [place] # (Auto) (0.1-1.2) X10*3/uL Eos # (Auto) (0.0-0.4) X10*3/uL Baso # (Auto) (0.0-0.2) X10*3/uL Abs Immat Gran (auto) (0.00-0.03) X10*3/uL Absolute Neuts (auto) (2.0-8.3) x10*3/uL Absolute Nucleated RBC (0.0-0.012) X10*3/uL Nucleated RBC % (auto) (0.0-0.2) /100WBC Sodium 136 (135-145) mmol/L Potassium 4.8 (3.3-5.1) mmol/L Chloride 105 (96-108) mmol/L Carbon Dioxide 25 (22-29) mmol/L Anion Gap 11 L (12-20) BUN 23 H (9-16) mg/dL Creatinine 0.89 (0.5-1.4) mg/dL Estim Creat Clear Calc 66.3 Estimated GFR > 60 Random Glucose 182 H (60-115) mg/dL Calcium 9.8 (8.4-10.2) mg/dL Magnesium (1.6-2.6) mg/dL Total Bilirubin (0.0-1.0) mg/dL AST (5-31) U/L ALT (0-31) U/L Alkaline Phosphatase (39-117) U/L Troponin I High Sens (<3.5-17.0) ng/L Total Protein (6.5-8.0) g/dL Albumin (3.5-5.0) g/dL Urine Color Urine Appearance Urine pH (5.0-9.0) Ur Specific [place] (1.005-1.025) Urine Protein (Neg-Trace) mg/dL Urine Glucose (UA) (Negative) mg/dL Urine Ketones (Negative) mg/dL Urine Blood (Negative) Urine Nitrite (Negative) Ur Leukocyte Esterase (Negative) Influenza Type A (PCR) (Negative) Influenza Type B (PCR) (Negative) RSV RNA Qual (PCR) (Negative) SARS-CoV-2 RNA (RT-PCR) (Negative) Independent Interpretation I performed an independent interpretation of an: EKG Interpretation: Rate: 70 Rhythm: NSR 1st degree AVB [place]: normal Normal P waves. Normal ADRIÁN. Normal QRS complex. ST T wave : normal no PATY qTC: 436 prior studies: no acute ischemia The study has been interpreted contemporaneously by me. . Independent Historian Clinical information obtained from an independent historian. History obtained from or confirmed by: EMS External Record Review External record reviewed: Inpatient record Prescription Management I considered prescription management with: Other Discharge Plan Discharge Clinical Impression: Dizziness Anemia Qualifiers: Anemia type: unspecified type Qualified Code(s): D64.9 - Anemia, unspecified Patient Disposition: Home, Self-Care Instructions: Dizziness (ED), Anemia (ED) Additional Instructions: repeat blood cell count in 2 days with doctor mild anemia return for worsening symptoms or concerns stay hydrated Prescriptions: New meclizine 25 mg tablet 25 mg PO TID PRN (Reason: dizziness) Qty: 30 0RF No Action Trulicity 1.5 mg/0.5 mL pen injector 1.5 mg subcut QWEEK 28 Days Qty: 2 6RF insulin aspart U-100 [Novolog FlexPen U-100 Insulin] 100 unit/mL (3 mL) insulin pen See Rx Instructions subcut TID Qty: 15 0RF Rx Instructions: 6 units for breakfast, 6 units for lunch and 10 units. subcut 3 times a day; sennosides [Natural Senna Laxative] 8.6 mg tablet 17.2 mg PO BEDTIME Qty: 180 3RF docusate sodium 100 mg capsule 100 mg PO BEDTIME Qty: 90 3RF celecoxib [Celebrex] 200 mg capsule 200 mg PO BID 30 Days Qty: 60 3RF acetaminophen 325 mg capsule 650 mg PO Q6H PRN (Reason: pain) Qty: 20 0RF ondansetron 4 mg tablet,disintegrating 4 mg PO ONCE PRN (Reason: nausea and vomiting) Qty: 10 0RF lidocaine [Lidoderm] 5 % adhesive patch,medicated 2 patch topical DAILY Qty: 30 0RF Rx Instructions: leave on most painful area for up to 12 hrs ibuprofen 400 mg tablet 400 mg PO Q6H PRN (Reason: pain) Qty: 20 0RF metoprolol succinate 100 mg tablet extended release 24 hr 100 mg PO DAILY atorvastatin 80 mg tablet 80 mg PO DAILY mecobalamin (vitamin B12) 1,000 mcg tablet,chewable 1,000 mcg PO DAILY isosorbide mononitrate 30 mg tablet extended release 24 hr 30 mg PO QAM lisinopril 40 mg tablet 40 mg PO DAILY loratadine 10 mg tablet 10 mg PO DAILY aspirin [Adult Low Dose Aspirin] 81 mg tablet,delayed release (DR/EC) 81 mg PO DAILY omeprazole 40 mg capsule,delayed release(DR/EC) 40 mg PO DAILY metformin 500 mg tablet extended release 24 hr 1,000 mg PO BID gabapentin 100 mg capsule 100 mg PO DAILY amlodipine 10 mg tablet 10 mg PO DAILY fluticasone propionate [Flovent HFA] 220 mcg/actuation HFA aerosol inhaler 2 puff inhalation BID Citrucel 500 mg tablet 500 mg PO DAILY Qty: 90 2RF Rx Instructions: take it with full glass of water Tresiba FlexTouch U-200 200 unit/mL (3 mL) insulin pen 50 unit subcut QPM Qty: 9 6RF (DME) transport belt See Rx Instructions .Route .[facility] Qty: 1 0RF Rx Instructions: As directed Print Language: Hebrew
[2023-11-27 00:50] VITALS: BP 145/74; PULSE 66
[2023-11-27 00:51] VITALS: BP 140/58; PULSE 61
[2023-11-27 00:54] VITALS: BP 148/62; PULSE 65
[2023-11-27] MEDS: Meclizine HCl 25 MG TABLET PO (01:08)
[2023-11-27 01:16] VITALS: BP 146/64; PULSE 65; RESP 16; O2SAT 95
[2023-11-27 01:54] VITALS: BP 146/64; PULSE 65; RESP 16; TEMP 36.6; O2SAT 95
== END 2023-11-27 01:50 | disposition home or self-care (01) ==
PROVIDERS: Physician Assistant Medical; Emergency Provider Emergency Medicine; PCP Internal Medicine
DX: R42 Dizziness and giddiness (principal); H53.8 Other visual disturbances; I44.0 Atrioventricular block, first degree; D64.9 Anemia, unspecified; I10 Essential (primary) hypertension; E11.9 Type 2 diabetes mellitus without complications; Z79.899 Other long term (current) drug therapy; Z87.891 Personal history of nicotine dependence; Z03.818 Encounter for observation for suspected exposure to other biological agents ruled out
CPT/HCPCS: 0241U; 36415; 80048; 80053; 81003; 83735; 84484; 85025; 93005; 99283; 99285

== ENCOUNTER → 2023-11-26 19:38 | Outpatient (BNV) | payer MEDICAID, SELFPAY | PROVIDERS: Emergency Provider Emergency Medicine; PCP Internal Medicine; Visit Provider Internal Medicine Cardiovascular Disease | DX: I44.0 Atrioventricular block, first degree (principal) | CPT/HCPCS: 93010 ==

== ENCOUNTER 2023-12-19 14:48 | Outpatient (AMB) | payer MEDICAID, SELFPAY ==
--- NOTE | 2023-12-19 14:59 | A.OFFVIS_ITS ---
Vital Signs 12/19/23 15:02 Height 5 ft 3 in Weight 152 lb 1.903 oz BMI 26.9 BP 140/74 H Blood Pressure Location Rt brachial Position Sitting Pulse 76 Pulse Source Pulse Oximeter Intake Visit Reasons: Type 2 DM/LVM Intake Note: New Patient presents today to establish treatment on Type Diabetes Mellitus: Last Diabetic Eye exam: 06/2023 Last Podiatry Exam: Does not see a Electrician Crane Maintenance Most recent HbA1c: 9.9%, 12/19/2023 Random Glucose- 181 mg/dL, Today Bottom Loader Required: No Accompanied by: Self / Same As Patient Allergies morphine [MORPHINE] Allergy (Intermediate, Verified 12/19/23 15:00) ITCHY, RASH HPI Comments Details: Patient is a 58-year-old female with DM type 2 diagnosed since 1989 who presents for management of diabetes. Patient was last seen 07/06 by the Endo ORAL SURGEON with an A1c of 9.5%. Today A1C is 9.9%. Past medical history: Diabetes type 2 cardiomyopathy hypertension, hyperlipidemia, cardiomyopathy Micro and macrovascular complications: + CVA, + CAD, neuropathy Diabetes medications: Tresiba 65 units, NovoLog, 6 units for breakfast, 8 units for lunch and 10 units for supper.. Trulicity 1.5 weekly . Metformin ER 1,000mg BID Trulicity recently lowered due to intolerance, she is doing well on 1.5mg without side effects BLood sugar log with bid testing is brought in. She is running 180-192 in the am later in the day 239-329 average 250. Lowest reading 128 in the am denies lows She reports feeling tired and was recently in the ER and found to be anemic. Exercise: walks with cane Staff Physical Therapy Assistant - CDE education: no Electrician Crane Maintenance: yes Ophthalmology evaluation: 07/07 had cataract surgery She is not sure if she has retinopathy [facility] Medical History Atherosclerotic cardiovascular disease Cardiomyopathy Type 2 diabetes mellitus with diabetic polyneuropathy History of CVA (cerebrovascular accident) Overweight HLD (hyperlipidemia) DM2 (diabetes mellitus, type 2) Asthma Hypertension Depression Myocardial infarction Surgical History Hx of cholecystectomy Hx of section Family History Father No problems noted. Mother No problems noted. Social History Household Members: Significant Other Alcohol intake: never Patient Tobacco Use Status: Former Tobacco user Current occupational status: disabled Physical Exam Vital Signs: Last Vital Signs Pulse 76 12/19/23 15:02 BP 140/74 H 12/19/23 15:02 BMI result Body Mass Index 26.9 Const General: cooperative Nutritional Appearance: average body habitus Orientation/consciousness: oriented to person Limitations: no limitations Neck Neck: Yes normal visual inspection Thyroid: Thyroid normal Chest Chest palpation & inspection: normal inspection of the chest Resp Effort & Inspection: normal respiratory effort Cardio Jugular venous distension: no JVD Rate: regular rate and bradycardic Heart sounds: S1 normal heart sound present and S2 normal heart sound present Neuro General: oriented to person Extrem Other: Visual exam of foot performed. No ulcerations or open lesions. No onchomycosis, no callouses. Sensation absent to monofilament exam. Vibratory sensation is diminshed with 128 Hz tuning fork. Results AMB Hemoglobin A1c AMB Hemoglobin A1c 9.9 % Last Edit by SONYA Denise on 12/19/23 15:17 Results Reviewed Results Reviewed: Laboratory Last Values Glucose (Clinic) 181 mg/dL (60-115) H 12/19/23 15:09 Hgb A1c (Clinic) 9.9 % (4.0-6.0) H 12/19/23 15:00 Laboratory Tests 12/16/21 02/08/22 01/09/23 13:10 12:19 10:33 Plt Count Potassium Creatinine Estim Creat Clear Calc Estimated GFR Calcium AST ALT 25-Hydroxy Vitamin D3 35 TSH 0.59 1.14 Thyroxine (T4) 6.4 11/26/23 11/27/23 19:50 00:10 Plt Count 324 Potassium 4.8 Creatinine 0.89 Estim Creat Clear Calc 66.3 Estimated GFR > 60 Calcium 9.8 AST 15 ALT 18 25-Hydroxy Vitamin D3 TSH Thyroxine (T4) Assessment & Plan Assessment & Plan (1) Type 2 diabetes mellitus with diabetic polyneuropathy: Code(s): E11.42 - Type 2 diabetes mellitus with diabetic polyneuropathy Category: Medical Plan: Type 2 diabetic with poor control on basal/bolus insulin plus Trulicity 1.5mg (unable to tolerate higher doses) and metformin ER 1000mg bid. She has been on a sensor in the remote past. She is willing to try again and would like to go on CeQur simplicity patch pump (delivers 2 units of short acting insulin per click and can be worn for 3 day). Will increase pre meal coverage ad obtain PA for FS bernardo and CeQur patch pump. Diabetes medications: Tresiba 65 units, NovoLog, 10 units for breakfast, 10 units for lunch and 12 units for supper.. Trulicity 1.5 weekly . Metformin ER 1,000mg BID Orders: Orders AMB Hemoglobin A1c Today E11.9 - Type 2 diabetes mellitus without complications Medications: New blood-glucose meter,continuous (FreeStyle Bernardo 3 [place]) As directed 1 ea 0RF blood-glucose sensor (FreeStyle Bernardo 3 Sensor device) As directed 2 ea 11RF bolus insulin pump, 200 unit (CeQur Simplicity) As directed every 3 days 5 clicks breakfast, 5 clicks lunch and 6 clicks supper Total of 16 units daily 10 ea 0RF E11.42 - Type 2 diabetes mellitus with diabetic polyneuropathy diabetic supplies, miscellan. (CeQur Simplicity Accounts Payable Technician) As directed 1 ea 1RF Coding Level of Care Code Est Pt Level 5 (06351) Complex EM visit Add On G2211 Diagnoses Type 2 diabetes mellitus with diabetic polyneuropathy E11.42 Time Spent (min) 60 Comment chart review, lab review, face to face and doc
[2023-12-19 15:02] VITALS: BP 140/74; PULSE 76; BMI 26.9
[2023-12-19 15:13] LABS: Glucose, Whole Blood 181 mg/dL (60-115)
== END 2023-12-19 15:35 | disposition home or self-care (01) ==
PROVIDERS: PCP Internal Medicine; Visit Provider Nurse Practitioner Adult Health
DX: E11.42 Type 2 diabetes mellitus with diabetic polyneuropathy (principal)
CPT/HCPCS: 99215

== ENCOUNTER → 2023-12-19 14:48 | Outpatient (BNVA) | payer MEDICAID, SELFPAY | PROVIDERS: PCP Internal Medicine; Visit Provider Nurse Practitioner Adult Health | DX: E11.42 Type 2 diabetes mellitus with diabetic polyneuropathy (principal) | CPT/HCPCS: 82947; 83036; 99212 ==

== ENCOUNTER 2024-01-07 09:23 | Outpatient (AMB) | payer MEDICAID, SELFPAY ==
--- NOTE | 2024-01-07 09:34 | A.OFFVIS_ITS ---
Intake Visit Reasons: Inj-Left knee injection-last injection 02/28/23 Intake Note: Wendy is a 58 year old female who presents to the office today for a left knee injection. Pt states the injections have helped her in the past. Allergies morphine [MORPHINE] Allergy (Intermediate, Verified 01/07/24 09:38) ITCHY, RASH Medication List - Last Reconciled 01/07/24 by Cralyn Forde PA-C acetaminophen 650 mg (2 x 325 mg) PO Q6H PRN amlodipine 10 mg PO DAILY aspirin (Adult Low Dose Aspirin) 81 mg PO DAILY atorvastatin 80 mg PO DAILY blood-glucose meter,continuous (FreeStyle Angélica 3 [place]) As directed blood-glucose sensor (FreeStyle Angélica 3 Sensor device) As directed bolus insulin pump, 200 unit (CeQur Simplicity) As directed every 3 days 5 clicks breakfast, 5 clicks lunch and 6 clicks supper Total of 16 units daily celecoxib 200 mg PO BID diabetic supplies, miscellan. (CeQur Simplicity Customer Technical Services Manager) As directed docusate sodium 100 mg PO BEDTIME dulaglutide (Trulicity) 1.5 mg (0.5 mL) subcut QWEEK 28 days fluticasone propionate 220 mcg/actuation (Flovent HFA) 2 puffs inhalation BID gabapentin 100 mg PO DAILY ibuprofen 400 mg PO Q6H PRN insulin aspart U-100 (Novolog FlexPen U-100 Insulin aspart) 6 units for breakfast, 6 units for lunch and 10 units. subcut 3 times a day; insulin degludec (Tresiba FlexTouch U-200 insulin) 50 units (0.25 mL) subcut QPM isosorbide mononitrate ER 30 mg PO QAM lidocaine 5% (Lidoderm) 2 patches topical DAILY lisinopril 40 mg PO DAILY loratadine 10 mg PO DAILY meclizine 25 mg PO TID PRN mecobalamin (vitamin B12) 1,000 mcg PO DAILY metformin ER 1,000 mg PO BID methylcellulose (laxative) (Citrucel) 500 mg PO DAILY metoprolol succinate ER 100 mg PO DAILY omeprazole 40 mg PO DAILY ondansetron 4 mg PO ONCE PRN sennosides (Natural Senna Laxative) 17.2 mg (2 x 8.6 mg) PO BEDTIME [transport belt As directed] HPI HPI Inj-Left knee injection-last injection 02/28/23: Details: 57-year-old female who returns to the office today for a follow-up of left knee pain. She had her last injection on 02/28/23 which provided her relief. She would like to repeat the injection. She has a history of diabetes. Her sugar level is well controlled. FORMERLY [facility] Medical History Atherosclerotic cardiovascular disease Cardiomyopathy Type 2 diabetes mellitus with diabetic polyneuropathy History of CVA (cerebrovascular accident) Overweight HLD (hyperlipidemia) DM2 (diabetes mellitus, type 2) Asthma Hypertension Depression Myocardial infarction Surgical History Hx of cholecystectomy Hx of section Family History Father No problems noted. Mother No problems noted. Social History Household Members: Significant Other Alcohol intake: never Patient Tobacco Use Status: Former Tobacco user Current occupational status: disabled Review of Systems Const All systems reviewed & are unremarkable except as noted in HPI and below Physical Exam Extrem Other: Left knee: Skin intact, no erythema or joint effusion. Tenderness along the medial and lateral joint line. Full ROM with crepitus. Negative Cinthia?s. No ligamentous laxity. NVI. ? Office Procedures Joint Injection/Aspiration Joint Injection/Aspiration Primary Site: left knee Prep: site was prepped using aseptic technique, ethochloride spray was applied and injection warnings given Injected: 40 mg of, DepoMedrol, with 8 mL of, 1% plain lidocaine and in the joint Approach Used: anterolateral Procedure: The patient tolerated the procedure well and there was some relief with the local anesthesia Coding 27093 - Glenohumeral/Tronchanteric Bursa/Intraarticular Procedure code (CPT) selection complete Assessment & Plan Assessment & Plan (1) Osteoarthritis of left knee: Code(s): M17.12 - Unilateral primary osteoarthritis, left knee Category: Medical Qualifiers: Osteoarthritis type: primary Qualified Code(s): M17.12 - Unilateral primary osteoarthritis, left knee Plan We discussed options today, which include steroid injection. The patient did consent to move forward with the left knee injection, which was tolerated well. I recommended rest, ice, and elevation and OTC anti-inflammatories as needed for discomfort. We also discussed diabetes and the effect the steroid injection can have on their blood glucose levels; therefore, they will continue to monitor these very closely over the next 72 hours. If there are concerns, they should report to the ED immediately. ? Patient Instructions: Scribed for Carlyn Forde PA-C, by Jonnathan Wolf center medical director, on 01/07/2024 at 9:30 AM EST.? I, Carlyn Forde PA-C, have personally reviewed and agree with the information entered by the scribe. Coding Level of Care Code Est Pt Level 3 (20733) Diagnoses Primary osteoarthritis of left knee M17.12 Osteoarthritis type: primary CPT Codes Coding - Joint 7: 32658 - Glenohumeral/Tronchanteric Bursa/Intraarticular ([id number])
== END 2024-01-07 10:36 | disposition home or self-care (01) ==
PROVIDERS: PCP Internal Medicine; Visit Provider Physician Assistant
DX: M17.12 Unilateral primary osteoarthritis, left knee (principal)
CPT/HCPCS: 20610; 99213

== ENCOUNTER → 2024-01-07 09:23 | Outpatient (BNVA) | payer MEDICAID, SELFPAY | PROVIDERS: PCP Internal Medicine; Visit Provider Physician Assistant | DX: M17.12 Unilateral primary osteoarthritis, left knee (principal) | CPT/HCPCS: 20610; 99212; J1010 ==

== ENCOUNTER 2024-01-30 12:37 | Outpatient (AMB) | payer MEDICAID, SELFPAY ==
--- NOTE | 2024-01-30 13:02 | MHC.OFFVIS ---
Intake Visit Reasons: urinary incontinence Intake Note: New Patient presents for initial visit for urinary incontinence Urology Medications: none Blood Thinner: aspirin PVR: 0ml's Manager Of Transportation Required: Yes Accompanied by: Unknown Allergies morphine [MORPHINE] Allergy (Intermediate, Verified 01/30/24 13:35) ITCHY, RASH Medication List - Last Reconciled 01/30/24 by GIFTY Lyons acetaminophen 650 mg (2 x 325 mg) PO Q6H PRN amlodipine 10 mg PO DAILY aspirin (Adult Low Dose Aspirin) 81 mg PO DAILY atorvastatin 80 mg PO DAILY blood-glucose meter,continuous (FreeStyle Angélica 3 [place]) As directed blood-glucose sensor (FreeStyle Angélica 3 Sensor device) As directed bolus insulin pump, 200 unit (CeQur Simplicity) As directed every 4 days 5 clicks breakfast, 5 clicks lunch and 6 clicks supper Total of 32 units celecoxib 200 mg PO BID diabetic supplies, miscellan. (CeQur Simplicity Duco Polisher) As directed docusate sodium 100 mg PO BEDTIME dulaglutide (Trulicity) 1.5 mg (0.5 mL) subcut QWEEK 28 days fluticasone propionate 220 mcg/actuation (Flovent HFA) 2 puffs inhalation BID gabapentin 100 mg PO DAILY ibuprofen 400 mg PO Q6H PRN insulin aspart U-100 (Novolog U-100 Insulin aspart) 10 units for breakfast (5 clicks on cequr), 10 units for lunch (five clicks on cequr) 12 units for supper (6 clicks) subcutaneously use as directed; insulin degludec (Tresiba FlexTouch U-200 insulin) 50 units (0.25 mL) subcut QPM insulin lispro 10 units with breakfast (5 clicks on Cequr), 10 units for lunch (5 clicks on cequr) and 12 units for supper (6 clicks on cequr) subcutaneously 3 times a day; may require up to 40 units daily to fill device 30 days MDD 32 units isosorbide mononitrate ER 30 mg PO QAM lidocaine 5% (Lidoderm) 2 patches topical DAILY lisinopril 40 mg PO DAILY loratadine 10 mg PO DAILY meclizine 25 mg PO TID PRN mecobalamin (vitamin B12) 1,000 mcg PO DAILY metformin ER 1,000 mg PO BID methylcellulose (laxative) (Citrucel) 500 mg PO DAILY metoprolol succinate ER 100 mg PO DAILY omeprazole 40 mg PO DAILY ondansetron 4 mg PO ONCE PRN sennosides (Natural Senna Laxative) 17.2 mg (2 x 8.6 mg) PO BEDTIME [transport belt As directed] HPI Comments Details: Manas gonzales a very pleasant 58-year-old Luxembourger-speaking female patient of Dr. Butler was accompanied by her niece at today's office visit. She has a past medical history of ACD, cardiomyopathy, type 2 diabetes, history of a CVA, overweight, hyperlipidemia, asthma, hypertension, depression, and SC. She presents to the office today as a new patient for ongoing lower urinary tract symptoms she has been experiencing. In discussion with the patient today she reports noting for many years to be having ongoing intermittent episodes of bladder pressure/discomfort. She discusses attending a day program. In office urinalysis results reviewed with the patient today. Microscopic hematuria and 3+ glucose noted. When asked she denies any previous history of workplace chemical exposure and or nicotine dependence. We discussed relation of uncontrolled diabetes with lower urinary tract symptoms. In review of patient's chart it appears last A1c 01/04 9.9. She discusses her upcoming appointment with endocrinology as she has been having increased blood sugars despite current management. She otherwise denies incontinence, nocturia, hematuria, foul smelling urine, changes to urinary stream, flank pain, fever, and or chills. PVR 0 mL. PFSH Medical History Atherosclerotic cardiovascular disease Cardiomyopathy Type 2 diabetes mellitus with diabetic polyneuropathy History of CVA (cerebrovascular accident) Overweight HLD (hyperlipidemia) DM2 (diabetes mellitus, type 2) Asthma Hypertension Depression Myocardial infarction Surgical History Hx of cholecystectomy Hx of section Family History Father No problems noted. Mother No problems noted. Social History Household Members: Significant Other Alcohol intake: never Patient Tobacco Use Status: Former Tobacco user Current occupational status: disabled Review of Systems Eyes Reports no additional complaints ENT Reports no additional complaints Card Reports as per [facility] Resp Reports as per [facility] GI Reports as per [facility] Reports as per [facility] Musc Reports as per [facility] Neuro Reports as per [facility] Psych Reports as per [facility] Endo Reports as per [facility] Franklin/Lymph Reports no additional complaints Aller/Immun Reports no additional complaints Physical Exam Const General: cooperative, healthy appearing, comfortable, no acute distress, well developed, alert and awake Orientation/consciousness: patient oriented x3 Limitations: ambulation with cane HEENT Head: Yes normal to inspection, Yes normocephalic and Yes atraumatic Ears: hearing grossly normal bilaterally Eyes General: appearance normal, both eyes and all related structures Neck Neck: Yes normal visual inspection and Yes trachea midline Chest Chest palpation & inspection: normal inspection of the chest Resp Effort & Inspection: normal respiratory effort and able to speak in complete sentences Cardio Rate: regular rate GI Inspection: Yes normal to inspection General: Yes no CVA tenderness Back/Spine/Pelvis Back: no CVA tenderness Skin General skin exam: no rashes or lesions noted Neuro General: patient oriented x3 Extrem General: Yes normal to inspection Psych Appearance: grossly normal and well kempt Mental Status: mental status grossly normal Speech and movement: Normal speech and movement present and Clear speech present Affect: normal affect Attitude: cooperative Thought process: Normal thought process present Thought content: Normal thought content present Insight: Fair insight present (Psych) Judgement: Fair judgement present (Psych) Office Procedures Post Void Residual Post Residual Void Post Void Residual (PVR): 0 [id number]-[id number] Void Residual by ultrasound Results AMB Urinalysis, Automated UA Leukoctes 15 Janina/uL Last Edit by Salazar Hawthorne on 01/30/24 13:22 UA Nitrite Last Edit by Salazar Hawthorne on 01/30/24 13:22 UA Urobilinogen 0.2 mg/dL Last Edit by Corticalinda Hawthorne on 01/30/24 13:22 UA Protein 15 mg/dL Last Edit by Salazar Hawthorne on 01/30/24 13:22 UA pH 6.0 Last Edit by Salazar Hawthorne on 01/30/24 13:22 UA Blood 10 Erwin/uL Last Edit by Salazar Hawthorne on 01/30/24 13:22 UA Specific [place] 1.020 Last Edit by Salazar Hawthorne on 01/30/24 13:22 UA Ketone Negative Last Edit by Salazar Hawthorne on 01/30/24 13:22 UA Bilirubin 0 mg/dL Last Edit by Salazar Hawthorne on 01/30/24 13:22 UA Glucose 1000 mg/dL Last Edit by Salazar Hawthorne on 01/30/24 13:22 Results Reviewed Results Reviewed: Laboratory Last Values Urine pH (Auto) 6.0 01/30/24 13:20 Specific [place] (Auto) 1.020 01/30/24 13:20 Urine Protein (Auto) 15 mg/dL 01/30/24 13:20 Glucose (UA)(Auto) 1000 mg/dL 01/30/24 13:20 Urine Ketones (Auto) Negative 01/30/24 13:20 Urine Blood (Auto) 10 Erwin/uL 01/30/24 13:20 Urine Bilirubin (Auto) 0 mg/dL 01/30/24 13:20 Urine Urobilinogen (Auto) 0.2 mg/dL 01/30/24 13:20 Leukocyte Esterase (Auto) 15 Janina/uL 01/30/24 13:20 Assessment & Plan Assessment & Plan (1) Bladder pain: Code(s): R39.89 - Other symptoms and signs involving the genitourinary system Category: Medical (2) Sensation of pressure in bladder area: Code(s): R39.89 - Other symptoms and signs involving the genitourinary system Category: Medical (3) Microscopic hematuria: Code(s): R31.29 - Other microscopic hematuria Category: Medical Plan In office urinalysis results reviewed with the patient today; as noted above; will send for urine cytology. PVR 0 mL. Discussed at length potential causes for lower urinary tract symptoms patient is experiencing. Discussed bladder triggers/irritants. Will obtain retroperitoneal ultrasound for further assessment evaluation. Discussed pelvic floor therapy verses trial of med management; she will think about this. Discussed, educated, and stressed the importance of adequate hydration relation to lower urinary tract symptoms as well as overall health and well-being. Discussed, educated, and stressed the importance of management and diabetes for improvement in lower urinary tract symptoms as well as overall health and well-being. Discussed possible near future in office cystoscopy if symptoms persist and/or worsen. Follow-up in 1-3 months with imaging and PVR; or sooner with any issues, concerns, and or questions. Orders: Orders AMB Urinalysis Automated Today Z13.9 - Encounter for screening, unspecified AMB Post Void Residual by ultrasound Today Z13.9 - Encounter for screening, unspecified US retroperitoneal comp Today R39.89 - Other symptoms and signs involving the genitourinary system Patient Instructions: The patient had an opportunity to ask questions regarding the treatment plan. All questions were answered. Physical exam, labs, and imaging were discussed and reviewed in detail. As well as risks, benefits, and discussion of treatment choices. No major barriers to understanding were identified. The patient expressed understanding and agreement with the above treatment plan. The patient was made aware they should contact our office by phone for worsening of their current condition, the appearance of new symptoms, or with any questions or concerns. Compliance is encouraged with any medications and follow up testing that is ordered. It is a privilege to be allowed the opportunity to participate in? your urological care.? Again, if you have any questions or concerns If you have any questions or concerns please do not hesitate to contact me. The office is [phone]. This note is constructed using voice recognition software. While every effort has been made to ensure accuracy chip machine operator errors may have been included. Yours sincerely, RUTH Lyons-KARISSA Coding Level of Care Code New Pt Level 3 (79157) Diagnoses Bladder pain R39.89 Sensation of pressure in bladder area R39.89 Microscopic hematuria R31.29 CPT Codes Post Residual Void - PVR CPT Code: 49626-Ynma Void Residual by ultrasound ([id number])
== END 2024-01-30 13:35 | disposition home or self-care (01) ==
PROVIDERS: PCP Internal Medicine; Visit Provider Nurse Practitioner Family
DX: R39.89 Other symptoms and signs involving the genitourinary system (principal); R31.29 Other microscopic hematuria; Z13.9 Encounter for screening, unspecified
CPT/HCPCS: 99203

== ENCOUNTER → 2024-01-30 12:37 | Outpatient (BNVA) | payer MEDICAID, SELFPAY | PROVIDERS: PCP Internal Medicine; Visit Provider Nurse Practitioner Family | DX: R39.89 Other symptoms and signs involving the genitourinary system (principal); R31.29 Other microscopic hematuria | CPT/HCPCS: 51798; 81003; 99212 ==

== ENCOUNTER 2024-02-05 09:33 | Outpatient (AMB) | payer MEDICAID, SELFPAY ==
--- NOTE | 2024-02-05 10:34 | MHC.AMDMED ---
Intake Intake Visit Reasons: DM Allergies morphine [MORPHINE] Allergy (Intermediate, Verified 01/30/24 13:35) ITCHY, RASH HPI Comprehensive Diabetes Asmnt Most Recent Diabetes Results: Hemoglobin A1c 12.4 % 03/06/19 Microalb/Creat Ratio TNP 02/08/22 Cholesterol 108 mg/dL 02/08/22 HDL Cholesterol 39 mg/dL 02/08/22 Triglycerides 66 mg/dL 02/08/22 Creatinine 0.89 mg/dL (0.5-1.4) 11/27/23 Blood Urea Nitrogen 23 mg/dL (9-16) H 11/27/23 Sodium 136 mmol/L (135-145) 11/27/23 Potassium 4.8 mmol/L (3.3-5.1) 11/27/23 Chloride 105 mmol/L (96-108) 11/27/23 Carbon Dioxide 25 mmol/L (22-29) 11/27/23 Calcium 9.8 mg/dL (8.4-10.2) 11/27/23 AST 15 U/L (5-31) 11/26/23 ALT 18 U/L (0-31) 11/26/23 Total Protein 6.9 g/dL (6.5-8.0) 11/26/23 Albumin 3.8 g/dL (3.5-5.0) 11/26/23 [facility] Medical History Atherosclerotic cardiovascular disease Cardiomyopathy Type 2 diabetes mellitus with diabetic polyneuropathy History of CVA (cerebrovascular accident) Overweight HLD (hyperlipidemia) DM2 (diabetes mellitus, type 2) Asthma Hypertension Depression Myocardial infarction Surgical History Hx of cholecystectomy Hx of section Family History Father No problems noted. Mother No problems noted. Social History Household Members: Significant Other Alcohol intake: never Patient Tobacco Use Status: Former Tobacco user Current occupational status: disabled Assessment & Plan Assessment & Plan (1) Type 2 diabetes mellitus with diabetic polyneuropathy: Code(s): E11.42 - Type 2 diabetes mellitus with diabetic polyneuropathy Plan: Patient at visit to set up an insert Angélica 3 sensor Instructed patient sensors water proof you can shower, or swim do not submerge sensor in water for over 30 minutes Is sensor falls off cannot put back in you need to replace sensor, customer service number given to patient for sensor replacement Sensor placed on the back of right arm Patient left visit with sensor in warmup Reviewed how to interpret trend arrows Reminded patient that to check finger sticks if symptoms do not match sensor reading. Discussed lag time between finger stick and sensor data.? Instructed patient she should always keep blood glucometer for backup testing if needed Reviewed delay of CGM from fingersticks Reminded pt that if symptoms do not match sensor still needs to check fingersticks. Pt brought CeQue patch, correctional casework specialist, vial of mealtime insulin and change by stickers Patient's prescription reads take Instructed patient to wash your hands Demonstrated for patient how to fill syringe from vial, and insert, needle to fill patch Then remove air bubbles from patch, by viewing through clear window below blue cap To prime patch after air bubble has been removed proceed with 4 clicks Apply placed sticker, to patch, count forward 3 days Prepare site where you will place patch with either alcohol or soap and water, avoid waist band and belt line Do not insert through scar tissue, piercings and tattoos be sure to place patch at least 2 in from belly button. If you have excess body hair adhesive will attach better to clean shaven skin Instructed patient to be sure to rotate patch regularly Place patch in correctional casework specialist while holding correctional casework specialist with both hands use thumbs to push down on blue cap in on patch Push until you hear a click Instructed patient not to unlock green button until correctional casework specialist is against prepared site Squeeze at both ends a blue cap and carefully began to pull cap, this should also remove adhesive pad liner. Be cautious of exposed needle, check to make sure needle is not bent Please patch on your body, slide yellow safety and press green button down Press correctional casework specialist firmly for 10 seconds, remove correctional casework specialist by lifting it away To remove needle squeeze clear sides of credit operations processor at the base Discard needle in sharps container Press down firmly on patch with palm of your hand for 10 seconds Patient left visit with CeQue patch in place Instructed patient on how to administer mealtime insulin, instructed patient that each click is equal to 2 units of mealtime insulin Patient will follow-up with nursing educator as instructed Portions of this note were created using voice recognition software, please excuse any words or phrases that may have been misinterpreted. Patient Instructions: Instructed patient to wash your hands Demonstrated for patient how to fill syringe from vial, and insert, needle to fill patch Then remove air bubbles from patch, by viewing through clear window below blue cap To prime patch after air bubble has been removed proceed with 4 clicks Apply placed sticker, to patch, count forward 3 days Prepare site where you will place patch with either alcohol or soap and water, avoid waist band and belt line Do not insert through scar tissue, piercings and tattoos be sure to place patch at least 2 in from belly button. If you have excess body hair adhesive will attach better to clean shaven skin Instructed patient to be sure to rotate patch regularly Place patch in correctional casework specialist while holding correctional casework specialist with both hands use thumbs to push down on blue cap in on patch Push until you hear a click Instructed patient not to unlock green button until correctional casework specialist is against prepared site Squeeze at both ends a blue cap and carefully began to pull cap, this should also remove adhesive pad liner. Be cautious of exposed needle, check to make sure needle is not bent Please patch on your body, slide yellow safety and press green button down Press correctional casework specialist firmly for 10 seconds, remove correctional casework specialist by lifting it away To remove needle squeeze clear sides of credit operations processor at the base Discard needle in sharps container Press down firmly on patch with palm of your hand for 10 seconds Instructed patient on how to administer mealtime insulin, instructed patient that each click is equal to 2 units of mealtime insulin Patient will follow-up with nursing educator as instructed Patient instruction: CGM provides information on blood glucose control throughout the day, including hyperglycemia and hypoglycemia. ? Continue to monitor blood glucose as instructed. Follow nutrition guidelines provided. Report any discomfort promptly to health care provider. ?Stay well-hydrated. You can bathe ,shower, swim and exercise while wearing the glucose sensor. Do not submerge glucose sensor in water for more than 30 minutes. Coding Level of Care Code Est Pt Level 1 (74293) Diagnoses Type 2 diabetes mellitus with diabetic polyneuropathy E11.42
== END 2024-02-05 10:36 | disposition home or self-care (01) ==
PROVIDERS: PCP Internal Medicine; Visit Provider Registered Nurse Diabetes Educator
DX: E11.42 Type 2 diabetes mellitus with diabetic polyneuropathy (principal)

== ENCOUNTER → 2024-02-05 09:33 | Outpatient (BNVA) | payer MEDICAID, SELFPAY | PROVIDERS: PCP Internal Medicine; Visit Provider Registered Nurse Diabetes Educator | DX: E11.42 Type 2 diabetes mellitus with diabetic polyneuropathy (principal) | CPT/HCPCS: 99211 ==

== ENCOUNTER 2024-02-07 15:02 | Emergency (ER) | payer MEDICAID, SELFPAY ==
--- NOTE | ~2024-02-07 | XR_ITS ---
EXAMINATION: RIGHT SHOULDER, RIGHT ELBOW, RIGHT WRIST CLINICAL INFORMATION: Pain after fall COMPARISON: Right elbow and right shoulder 10/02/2023 TECHNIQUE: 4 views right shoulder, 3 views right elbow, 5 views right wrist FINDINGS: Shoulder: Mild degenerative changes are present in the shoulder with some inferior glenoid small osteophytes. Sclerosis and osteophytes are present at the greater tubercle. No fractures or dislocations. No rotator cuff calcification. Elbow: No acute abnormality is seen in the elbow. No fracture or joint effusion. Some small osseous densities adjacent to the lateral epicondyles likely secondary to chronic disease/remote injury. Right wrist: Some minimal degenerative changes are present at the wrist predominantly at the CMC joints, but no fractures or dislocations are seen. No chondrocalcinosis. XR/XR shoulder RT min 2V IMPRESSION: No evidence of an acute osseous injury. Degenerative changes as described above. Electronically signed by: Baldemar Porter MD 02/07/2024 07:01 PM EDT
--- NOTE | ~2024-02-07 | XR_ITS ---
EXAMINATION: XR RIBS, RIGHT CLINICAL INFORMATION: Right-sided rib pain. COMPARISON: Most recent chest radiograph dated 10/02/2023. TECHNIQUE: 3 views of the right ribs were obtained. FINDINGS: Lungs are clear. No consolidation, pneumothorax, or pleural effusion. The cardiomediastinal silhouette and pulmonary vasculature are normal. Possible nondisplaced fracture through the lateral aspect of the right eighth rib. No concerning lytic or blastic osseous lesion. No abnormal soft tissue calcification. XR/XR ribs RT min 3V w CXR1V IMPRESSION: Possible nondisplaced fracture through the lateral aspect of the right eighth rib. Electronically signed by: Vishnu Madera MD 02/07/2024 10:15 PM EDT
--- NOTE | ~2024-02-07 | CT_ITS ---
EXAM: CT HEAD WITHOUT CONTRAST CT CERVICAL SPINE INDICATION: fall TECHNIQUE: A noncontrast CT scan was performed from the skull base to the vertex. A noncontrast CT scan of the cervical spine was performed from the base of the skull through T1 at 2.5 mm and 0.625 mm collimation. Coronal and sagittal reformats were obtained at the acquisition workstation. This CT examination was performed using dose optimization techniques as appropriate, variously including the following: * Automated exposure control * Adjustment of mA and/or kV according to patient size (this includes techniques or standardized protocols for targeted exams where dose is matched to indication/reason for exam; i.e. extremities or head) * Use of iterative reconstruction technique Dose length product is 913 mGy-cm. COMPARISON: CT 10/02/2023 FINDINGS: Head: FINDINGS: There is no evidence of acute intracranial hemorrhage or territorial infarction. No abnormal mass effect or midline shift is seen. Millan to white matter differentiation is well preserved. No extra-axial fluid collections are identified. The ventricles are normal in size. No abnormal attenuation in the brain parenchyma. No acute calvarial fracture.. Paranasal sinuses and mastoid air cells are well-aerated. Cervical Spine: The atlantooccipital and atlantoaxial articulations remain well aligned. Straightening of the normal cervical lordosis. Otherwise, there is anatomic alignment of the vertebral bodies and posterior elements. No evidence of acute fracture. Vertebral body heights are maintained. The disc spaces are preserved. Minimal anterior endplate osteophytes along the inferior margins of the C3, C4, C5 vertebral bodies, stable. The bony canal is maintained. No prevertebral soft tissue swelling. Visualized lung apices are clear. CT/CT cervical spine wo IV con IMPRESSION: No CT evidence of acute intracranial hemorrhage or edematous territorial infarction. No CT evidence of acute cervical spine fracture. Electronically signed by: Jeff Dobbs MD 02/07/2024 05:50 PM EDT
--- NOTE | ~2024-02-07 | XR_ITS ---
EXAMINATION: RIGHT SHOULDER, RIGHT ELBOW, RIGHT WRIST CLINICAL INFORMATION: Pain after fall COMPARISON: Right elbow and right shoulder 10/02/2023 TECHNIQUE: 4 views right shoulder, 3 views right elbow, 5 views right wrist FINDINGS: Shoulder: Mild degenerative changes are present in the shoulder with some inferior glenoid small osteophytes. Sclerosis and osteophytes are present at the greater tubercle. No fractures or dislocations. No rotator cuff calcification. Elbow: No acute abnormality is seen in the elbow. No fracture or joint effusion. Some small osseous densities adjacent to the lateral epicondyles likely secondary to chronic disease/remote injury. Right wrist: Some minimal degenerative changes are present at the wrist predominantly at the CMC joints, but no fractures or dislocations are seen. No chondrocalcinosis. XR/XR wrist RT min 3V IMPRESSION: No evidence of an acute osseous injury. Degenerative changes as described above. Electronically signed by: Baldemar Porter MD 02/07/2024 07:01 PM EDT
--- NOTE | ~2024-02-07 | XR_ITS ---
EXAMINATION: RIGHT SHOULDER, RIGHT ELBOW, RIGHT WRIST CLINICAL INFORMATION: Pain after fall COMPARISON: Right elbow and right shoulder 10/02/2023 TECHNIQUE: 4 views right shoulder, 3 views right elbow, 5 views right wrist FINDINGS: Shoulder: Mild degenerative changes are present in the shoulder with some inferior glenoid small osteophytes. Sclerosis and osteophytes are present at the greater tubercle. No fractures or dislocations. No rotator cuff calcification. Elbow: No acute abnormality is seen in the elbow. No fracture or joint effusion. Some small osseous densities adjacent to the lateral epicondyles likely secondary to chronic disease/remote injury. Right wrist: Some minimal degenerative changes are present at the wrist predominantly at the CMC joints, but no fractures or dislocations are seen. No chondrocalcinosis. XR/XR elbow RT 2V IMPRESSION: No evidence of an acute osseous injury. Degenerative changes as described above. Electronically signed by: Baldemar Porter MD 02/07/2024 07:01 PM EDT
[2024-02-07 15:13] VITALS: BP 150/80; PULSE 90; O2SAT 96
[2024-02-07 15:14] VITALS: BP 183/70; PULSE 73; RESP 18; TEMP 36.7; O2SAT 97; BMI 25.8
--- NOTE | 2024-02-07 16:21 | ED_ITS ---
HPI - Fall General Chief Complaint: Fall Stated Complaint: R SIDE/SHOULDER PAIN S/P FALL/LOSS OF BALANCE Time Seen by Provider: 02/07/24 15:42 Source: patient and RN notes reviewed Mode of arrival: ambulatory Limitations: language barrier History of Present Illness ED Provider: Una Garcia PA-C HPI Narrative: This is a 58-year-old Citizen Of [place]-speaking female, with a history of diabetes, hype rtension, hyperlipidemia, who presents emergency department with complaints of right arm and right rib pain status post mechanical fall which occurred today. Patient states that she was very angry with her daughter and quickly turned around and tripped ultimately causing her to fall onto her right side. She denies hitting her head. She denies loss of consciousness. She states that she was unable to get herself up from the ground due to the pain in her right arm and right ribs. She states that the pain worsens with movement of her right arm. Denies any dizziness, blurred vision, chest pain, shortness for breath, abdominal pain, nausea, vomiting or diarrhea. She is not on blood thinners. She was feeling well prior to the fall. No chest pain or shortness of breath. No other complaints or concerns at this time. MD complaint: fall Onset (ago): hour(s) Fall from: standing Fall witnessed: yes, by family Place fall occurred: home Loss of consciousness: none Prolonged down time: minute(s) Symptoms prior to fall: none Context: tripped/slipped Location of injury - extremities: right: shoulder Severity: moderate Quality: aching Associated symptoms (after fall): neck pain Related Data Home Medications ?Medication ?Instructions ?Recorded ?Confirmed amlodipine 10 mg tablet 10 mg PO DAILY 02/10/21 01/07/24 aspirin 81 mg tablet,delayed 81 mg PO DAILY 02/10/21 01/07/24 release (Adult Low Dose Aspirin) atorvastatin 80 mg tablet 80 mg PO DAILY 02/10/21 01/07/24 gabapentin 100 mg capsule 100 mg PO DAILY 02/10/21 01/07/24 isosorbide mononitrate 30 mg 30 mg PO QAM 02/10/21 01/07/24 tablet,extended release 24 hr lisinopril 40 mg tablet 40 mg PO DAILY 02/10/21 01/07/24 loratadine 10 mg tablet 10 mg PO DAILY 02/10/21 01/07/24 mecobalamin (vitamin B12) 1,000 1,000 mcg PO DAILY 02/10/21 01/07/24 mcg chewable tablet metformin 500 mg tablet,extended 1,000 mg PO BID 02/10/21 01/07/24 release 24 hr metoprolol succinate 100 mg 100 mg PO DAILY 02/10/21 01/07/24 tablet,extended release 24 hr omeprazole 40 mg capsule,delayed 40 mg PO DAILY 02/10/21 01/07/24 release fluticasone propionate 220 2 puff inhalation BID 06/09/22 01/07/24 mcg/actuation HFA aerosol inhaler (Flovent HFA) Previous Rx's ?Medication ?Instructions ?Recorded acetaminophen 325 mg capsule 650 mg (2 x 325 mg) PO Q6H PRN 01/14/21 pain #20 caps ondansetron 4 mg disintegrating 4 mg PO ONCE PRN nausea and 05/10/21 tablet vomiting #10 tabs dulaglutide 1.5 mg/0.5 mL 1.5 mg (0.5 mL) subcut QWEEK 28 06/16/21 subcutaneous pen injector days #2 mL (Trulicity) insulin degludec 200 unit/mL (3 50 unit (0.25 mL) subcut QPM #9 mL 06/16/21 mL) subcutaneous pen (Tresiba FlexTouch U-200 insulin) lidocaine 5 % topical patch 2 patch topical DAILY #30 ea 03/07/22 (Lidoderm) methylcellulose (laxative) 500 mg 500 mg PO DAILY #90 tabs 06/09/22 tablet (Citrucel) ibuprofen 400 mg tablet 400 mg PO Q6H PRN pain #20 tabs 11/06/22 docusate sodium 100 mg capsule 100 mg PO BEDTIME #90 caps 06/18/23 sennosides 8.6 mg tablet (Natural 17.2 mg (2 x 8.6 mg) PO BEDTIME 06/18/23 Senna Laxative) constipation #180 tabs transport belt #1 ea 08/15/23 meclizine 25 mg tablet 25 mg PO TID PRN dizziness #30 tabs 11/27/23 blood-glucose meter,continuous #1 ea 12/19/23 (FreeStyle Angélica 3 [place]) blood-glucose sensor (FreeStyle #2 ea 12/19/23 Angélica 3 Sensor device) diabetic supplies, miscellan. #1 ea 12/19/23 (CeQur Simplicity Belt Knife Feeder) celecoxib 200 mg capsule 200 mg PO BID for pain #60 caps 12/21/23 bolus insulin pump, 200 unit 2 #8 ea 01/08/24 unit bolus insulin patch pump, 200 unit, disposable (CeQur Simplicity) insulin aspart U-100 100 unit/mL See Rx Instructions subcut 01/08/24 subcutaneous solution (Novolog USEASDIRECTD #20 mL U-100 Insulin aspart) insulin lispro 100 unit/mL See Rx Instructions subcut TID 30 01/09/24 subcutaneous solution days #20 mL ibuprofen 600 mg tablet 600 mg PO Q6H #20 tabs 02/07/24 oxycodone 5 mg tablet 5 mg PO Q6H PRN pain #20 tabs 02/07/24 Allergies Allergy/AdvReac Type Severity Reaction Status Date / Time morphine [MORPHINE] Allergy Intermediate ITCHY, RASH Verified 02/07/24 15:14 Review of Systems Review of Systems: Yes all other systems are reviewed and are negative Constitutional: Constitutional: Reports as per HPI [facility] Past Medical History Attestation statement: The following information was validated with the patient. Medical History Atherosclerotic cardiovascular disease Cardiomyopathy Type 2 diabetes mellitus with diabetic polyneuropathy History of CVA (cerebrovascular accident) Overweight HLD (hyperlipidemia) DM2 (diabetes mellitus, type 2) Asthma Hypertension Depression Myocardial infarction Surgical History Hx of cholecystectomy Hx of section Family History Family History Father No problems noted. Mother No problems noted. Social History Social History Household Members: Significant Other Alcohol intake: never Patient Tobacco Use Status: Former Tobacco user Advance Directives: No Advance Directives Information Provided: No Do you have a plan to hurt others: No Plan Current occupational status: disabled Physical Exam Vital Signs: Vital Signs: Last Vital Signs Temp 98.4 F 02/07/24 22:16 Pulse 82 02/07/24 22:16 Resp 14 02/07/24 22:16 BP 142/63 H 02/07/24 22:16 Pulse Ox 97 02/07/24 22:16 O2 Del Method Room Air 02/07/24 22:16 BMI result Body Mass Index 25.8 Const: General: cooperative, comfortable and no acute distress Orientation/consciousness: patient oriented x3 Limitations: no limitations HEENT: Head: Yes normal to inspection, Yes normocephalic and Yes atraumatic Ears: hearing grossly normal bilaterally and TM's normal bilaterally General nose exam: Normal external nose present Face and sinus: Yes normal facial exam Mouth: Normal oral and palatal mucosa present, oropharynx normal and m oist mucous membranes Throat: Yes posterior oropharynx normal Eyes: General: appearance normal, both eyes and all related structures Eyelids: Yes eyelids normal Conjunctivae: conjunctivae normal Sclerae: sclerae normal Pupils: Equal, round and reactive pupils present EOM: EOMs intact bilaterally Neck: Other: No C-spine tenderness on examination. Neck: Yes normal visual inspection, Yes full ROM and Yes no lymphadenopathy Lymphatic: no lymphadenopathy noted Chest: Other: Tenderness palpation along the right ribs, no bony step-off or deformity. Chest palpation & inspection: normal inspection of the chest Resp: Effort & Inspection: normal respiratory effort and able to speak in co mplete sentences Auscultation: clear to auscultation bilaterally, no crackles, no rales, no rhonchi and no wheezes Cardio: Rate: regular rate Rhythm: regular rhythm Heart sounds: S1 normal heart sound present and S2 normal heart sound present GI: Inspection: Yes normal to inspection Skin: General skin exam: no rashes or lesions noted Trauma: no lacerations or abrasions Wounds: no wounds Neuro: General: patient oriented x3 and moves all extremities Cranial nerves: Yes Equal, round and reactive pupils present Extrem: Other: Right shoulder with no obvious bony deformity or swelling. She has exquisite tenderness throughout the entire joint, limited range of motion secondary to pain. Unable to lift arm secondary to pain unable to bend at the elbow secondary to pain. She has pain extending diffusely throughout the entire arm without any specific point tenderness. Strong radial pulse. General: Yes normal to inspection Right upper extremity: normal to inspection Left upper extremity: normal to inspection Right lower extremity: normal to inspection Left lower extremity: normal to inspection Course Reevaluation(s) Reevaluation #1: CTs of the head and neck revealed no acute process. Right wrist, right elbow, and right shoulder shows no acute process. Pending rib x-rays at this time. Reevaluation #2: Patient re-evaluated, feeling better after oxycodone however still reporting pain, will place arm in sling. Given difficulty with movement of her right arm, concerning for possible rotator cuff injury. She needs to follow-up with Orthopedics, pending x-ray of the ribs Time: 19:33 Reevaluation #3: I Franci Osorio PA-C have accepted care of the patient and signed out pending imaging Of the chest. I have independently reviewed the following tests: Chest x-ray: XR/XR ribs RT min 3V w CXR1V IMPRESSION: Possible nondisplaced fracture through the lateral aspect of the right eighth rib. Related finding to the patient, we will be sending with pain medications and she can follow up with her primary care provider. We will provide her with incentive spirometry as well. Time: 19:33 Medications Administered Discontinued Medications Generic Name Dose Route Start Last Admin Trade Name Freq PRN Reason Stop Dose Admin Acetaminophen 975 mg 02/07/24 16:22 02/07/24 16:27 Acetaminophen 325 Mg Tablet PO 02/07/24 16:23 975 mg ONCE ONE Administration Oxycodone HCl 5 mg 02/07/24 18:36 02/07/24 19:05 Oxycodone Hcl Immed Release 5 Mg Tablet PO 02/07/24 18:37 5 mg ONCE ONE Administration Medical Decision Making Medical Decision Making MDM Narrative: This is a 58-year-old female who presents emergency department with complaints of right arm pain and right rib pain status post mechanical fall which occurred today. On arrival, vital signs revealing hyper tension at 183/70, likely secondary to pain. Patient has exquisite tenderness throughout the right shoulder, especially over the right AC joint. She also has tenderness palpation along the right ribs. No bony step-off or deformity. Lungs are clear to auscultation bilaterally Differential diagnoses include fracture, strain, sprain, contusion. Less likely ICH or SDH. Plan: X-ray, CT head and C-spine Differential Diagnosis Differential Diagnoses: The differential diagnosis associated with the pr esentation includes See above Radiology Impression Discussion of test interpretation with radiology: I have reviewed the radiol ogist's reading. Radiologist Impression: COMPARISON: CT 10/02/2023 FINDINGS: Head: FINDINGS: There is no evidence of acute intracranial hemorrhage or territorial infarction. No abnormal mass effect or midline shift is seen. Millan to white matter differentiation is well preserved. No extra-axial fluid collections are identified. The ventricles are normal in size. No abnormal attenuation in the brain parenchyma. No acute calvarial fracture.. Paranasal sinuses and mastoid air cells are well-aerated. Cervical Spine: The atlantooccipital and atlantoaxial articulations remain well aligned. Straightening of the normal cervical lordosis. Otherwise, there is anatomic alignment of the vertebral bodies and posterior elements. No evidence of acute fracture. Vertebral body heights are maintained. The disc spaces are preserved. Minimal anterior endplate osteophytes along the inferior margins of the C3, C4, C5 vertebral bodies, stable. The bony canal is maintained. No prevertebral soft tissue swelling. Visualized lung apices are clear. CT/CT head/brain wo IV con IMPRESSION: No CT evidence of acute intracranial hemorrhage or edematous territorial infarction. No CT evidence of acute cervical spine fracture. Electronically signed by: Jeff Dobbs MD 02/07/2024 05:50 PM EDT RP Dictated By: Jeff Dobbs MD XR/XR wrist RT min 3V IMPRESSION: No evidence of an acute osseous injury. Degenerative changes as described above. Electronically signed by: Baldemar Porter MD 02/07/2024 07:01 PM EDT RP Dictated By: Baldemar Porter MD XR/XR shoulder RT min 2V IMPRESSION: No evidence of an acute osseous injury. Degenerative changes as described above. Electronically signed by: Baldemar Porter MD 02/07/2024 07:01 PM EDT RP Dictated By: Baldemar Porter MD XR/XR elbow RT 2V IMPRESSION: No evidence of an acute osseous injury. Degenerative changes as described above. Electronically signed by: Baldemar Porter MD 02/07/2024 07:01 PM EDT RP Dictated By: Baldemar Porter MD Discharge Plan Discharge Clinical Impression: Fall, Contusion of arm, right Closed rib fracture Qualifiers: Encounter type: initial encounter Rib fracture type: single rib Laterality: right Qualified Code(s): S22.31XA - Fracture of one rib, right side, initial encounter for closed fracture Patient Disposition: Home, Self-Care Instructions: Rib Fracture (ED), Contusion in Adults (ED), Fall Prevention (ED) Additional Instructions: You were seen in the emergency department due to a fall. Your x-rays do not show any bony abnormalities. However you were found to have a rib fracture of the 8th lateral rib, it is essentially a crack. See home care instructions. Take the pain medication as instructed. Use the incentive spirometry as directed. You need to follow up with your doctor within 3-5 days. Please rest, ice, take ibuprofen or Tylenol as needed for pain. Follow-up with your primary care physician. If any new or worsening symptoms occur including but not limited to chest pain, shortness breath, worsening pain, please follow-up. You need to follow-up with the orthopedic team, call to make an appointment. Prescriptions: New oxycodone 5 mg tablet 5 mg PO Q6H PRN (Reason: pain) Qty: 20 0RF Rx Instructions: Partial Fill upon patient request. ibuprofen 600 mg tablet 600 mg PO Q6H Qty: 20 0RF No Action Trulicity 1.5 mg/0.5 mL pen injector 1.5 mg subcut QWEEK 28 Days Qty: 2 6RF sennosides [Natural Senna Laxative] 8.6 mg tablet 17.2 mg PO BEDTIME Qty: 180 3RF docusate sodium 100 mg capsule 100 mg PO BEDTIME Qty: 90 3RF celecoxib 200 mg capsule 200 mg PO BID Qty: 60 3RF (DME) CeQur Simplicity 2 unit device See Rx Instructions .Route Qty: 8 11RF Rx Instructions: As directed every 4 days 5 clicks breakfast, 5 clicks lunch and 6 clicks supper Total of 32 units insulin aspart U-100 [Novolog U-100 Insulin aspart] 100 unit/mL solution See Rx Instructions subcut USEASDIRECTD Qty: 20 11RF Rx Instructions: 10 units for breakfast (5 clicks on cequr), 10 units for lunch (five clicks on cequr) 12 units for supper (6 clicks) subcutaneously use as directed; insulin lispro 100 unit/mL solution See Rx Instructions subcut TID MDD 32 units 30 Days Qty: 20 3RF Rx Instructions: 10 units with breakfast (5 clicks on Cequr), 10 units for lunch (5 clicks on cequr) and 12 units for supper (6 clicks on cequr) subcutaneously 3 times a day; may require up to 40 units daily to fill device acetaminophen 325 mg capsule 650 mg PO Q6H PRN (Reason: pain) Qty: 20 0RF ondansetron 4 mg tablet,disintegrating 4 mg PO ONCE PRN (Reason: nausea and vomiting) Qty: 10 0RF lidocaine [Lidoderm] 5 % adhesive patch,medicated 2 patch topical DAILY Qty: 30 0RF Rx Instructions: leave on most painful area for up to 12 hrs ibuprofen 400 mg tablet 400 mg PO Q6H PRN (Reason: pain) Qty: 20 0RF meclizine 25 mg tablet 25 mg PO TID PRN (Reason: dizziness) Qty: 30 0RF metoprolol succinate 100 mg tablet extended release 24 hr 100 mg PO DAILY atorvastatin 80 mg tablet 80 mg PO DAILY mecobalamin (vitamin B12) 1,000 mcg tablet,chewable 1,000 mcg PO DAILY isosorbide mononitrate 30 mg tablet extended release 24 hr 30 mg PO QAM lisinopril 40 mg tablet 40 mg PO DAILY loratadine 10 mg tablet 10 mg PO DAILY aspirin [Adult Low Dose Aspirin] 81 mg tablet,delayed release (DR/EC) 81 mg PO DAILY omeprazole 40 mg capsule,delayed release(DR/EC) 40 mg PO DAILY metformin 500 mg tablet extended release 24 hr 1,000 mg PO BID gabapentin 100 mg capsule 100 mg PO DAILY amlodipine 10 mg tablet 10 mg PO DAILY fluticasone propionate [Flovent HFA] 220 mcg/actuation HFA aerosol inhaler 2 puff inhalation BID Citrucel 500 mg tablet 500 mg PO DAILY Qty: 90 2RF Rx Instructions: take it with full glass of water Tresiba FlexTouch U-200 200 unit/mL (3 mL) insulin pen 50 unit subcut QPM Qty: 9 6RF (DME) transport belt See Rx Instructions .Route .MEDSUPPLY Qty: 1 0RF Rx Instructions: As directed (DME) FreeStyle Angélica 3 [place] Misc See Rx Instructions .ROUTE .MEDSUPPLY Qty: 1 0RF Rx Instructions: As directed (DME) FreeStyle Angélica 3 Sensor Device See Rx Instructions .ROUTE .MEDSUPPLY Qty: 2 11RF Rx Instructions: As directed (DME) CeQur Simplicity Belt Knife Feeder Misc See Rx Instructions .Route Qty: 1 1RF Rx Instructions: As directed Referrals: [facility] [Provider Group] Print Language: Citizen Of [place]
[2024-02-07] MEDS: Acetaminophen 325 MG TABLET 975 MG PO (16:27)
[2024-02-07 16:34] VITALS: BP 181/74; PULSE 73; RESP 16; TEMP 36.7; O2SAT 99
[2024-02-07] MEDS: oxyCODONE HCl Immed Release 5 MG TABLET PO (19:05)
--- NOTE | 2024-02-07 19:06 | PC.NURSE ---
pt medicated with additional pain meds per order02/20 pain
[2024-02-07 19:36] VITALS: BP 148/63; PULSE 82; RESP 16; TEMP 36.8; O2SAT 96
[2024-02-07 22:16] VITALS: BP 142/63; PULSE 82; RESP 14; TEMP 36.9; O2SAT 97
[2024-02-07 23:48] VITALS: BP 146/62; PULSE 68; RESP 16; TEMP 36.3; O2SAT 97
[2024-02-08 00:02] VITALS: BP 146/62; PULSE 68; RESP 16; TEMP 36.3; O2SAT 97
== END 2024-02-08 00:13 | disposition home or self-care (01) ==
PROVIDERS: Emergency Provider Internal Medicine; PCP Internal Medicine
DX: S22.31XA Fracture of one rib, right side, initial encounter for closed fracture (principal); S40.021A Contusion of right upper arm, initial encounter; R07.81 Pleurodynia; R51.9 Headache, unspecified; M79.601 Pain in right arm; W01.0XXA Fall on same level from slipping, tripping and stumbling without subsequent striking against object, initial encounter; Y93.89 Activity, other specified; Y92.098 Other place in other non-institutional residence as the place of occurrence of the external cause; Y99.8 Other external cause status
CPT/HCPCS: 70450; 71101; 72125; 73030; 73070; 73110; 99284

== ENCOUNTER 2024-02-26 09:16 | Outpatient (REF) | payer MEDICAID, SELFPAY ==
--- NOTE | ~2024-02-26 | CT_ITS ---
EXAMINATION: CT ABDOMEN AND PELVIS WITH CONTRAST CLINICAL INFORMATION: Worsening abdominal pain after falling COMPARISON: None available. TECHNIQUE: Multidetector volumetric images were obtained from the superior aspect of the liver through the pubic symphysis following administration 85 mL of Omnipaque 350 intravenous contrast. Sagittal and coronal reformatted images were obtained on the technologist's workstation. Oral contrast: No This CT examination was performed using dose optimization techniques as appropriate, variously including the following: *Automated exposure control *Adjustment of mA and/or kV according to patient size (this includes techniques or standardized protocols for targeted exams where dose is matched to indication/reason for exam; i.e. extremities or head) *Use of iterative reconstruction technique DLP: 590 mGy-cm FINDINGS: LUNG BASES: The visualized lung bases are unremarkable. LIVER, GALLBLADDER, AND BILIARY TREE: Mild hepatic steatosis. The liver is prominent. There may be a very subtle too small to characterize focus, in the inferior medial left lobe. No suspicious lesions. No intrahepatic biliary dilatation. Small gallstones in the gallbladder. No adjacent inflammatory change. The AP diameter of the common bile duct however at the level of the pancreas is 12 mm. I would recommend a right upper quadrant ultrasound with special attention to the gallbladder and common duct. PANCREAS: Unremarkable. SPLEEN: Unremarkable. ADRENAL GLANDS: Unremarkable. KIDNEYS AND URETERS: The kidneys are normal in size, shape, and attenuation. No hydronephrosis, hydroureter, or calculi seen. No perinephric stranding. BLADDER: Unremarkable. GASTROINTESTINAL TRACT: Large volume of stool within the colon particularly the cecum. No bowel obstruction or regular left lower quadrant inflammation. The appendix is not clearly seen. ABDOMINAL WALL: No significant hernia is appreciated. LYMPH NODES: Normal. VASCULAR: There are atherosclerotic changes in the aorta. PELVIC VISCERA: The uterus is displaced towards the right by distended bladder. There may be leiomyomatous change in the fundus. No adnexal masses or ascites. OSSEOUS STRUCTURES: There is degenerative change particularly at the thoracolumbar junction. No acute fracture. CT/CT abdomen pelvis w IV con IMPRESSION: Slightly dilated common duct. Gallstones. Ultrasound is advised. Fleischner guidelines were followed. Electronically signed by: Leon Light MD 02/26/2024 02:54 PM EDT
[2024-02-26] MEDS: iohexoL 350 MG/ML 100 ML INFUS..BTL IV (11:58)
[2024-02-26] MEDS: Barium Sulfate Oral (Berry) 450 ML ORAL.SUSP PO ×2 (11:59)
[2024-02-27 11:44] LABS: Creatinine POC 0.8 mg/dL (0.5-1.4); GFR POC > 60
== END 2024-02-26 09:17 | disposition home or self-care (01) ==
LOC: HO.CT 09:16
PROVIDERS: PCP Internal Medicine; Visit Provider Registered Nurse
DX: R10.30 Lower abdominal pain, unspecified (principal)
CPT/HCPCS: 74177; 82565; Q9967

== ENCOUNTER 2024-03-18 14:57 | Emergency (ER) | payer MEDICAID, SELFPAY ==
--- NOTE | ~2024-03-18 | CT_ITS ---
EXAMINATION: CT HEAD WITHOUT CONTRAST CLINICAL INFORMATION: Fall with head strike COMPARISON: None available. TECHNIQUE: Contiguous axial imaging was performed from the skull base to vertex without intravenous administration of contrast. This CT examination was performed using dose optimization techniques as appropriate, variously including the following: *Automated exposure control *Adjustment of mA and/or kV according to patient size (this includes techniques or standardized protocols for targeted exams where dose is matched to indication/reason for exam; i.e. extremities or head) *Use of iterative reconstruction technique DLP: 688 mGy-cm FINDINGS: No intra or extra-axial fluid collection, hemorrhage, mass, or mass effect. The sulci and ventricles are age-appropriate. Calvarium is intact. CT/CT head/brain wo IV con IMPRESSION: No acute intracranial pathology. Electronically signed by: Leon Light MD 03/18/2024 04:31 PM [facility]
--- NOTE | ~2024-03-18 | XR_ITS ---
EXAMINATION: XR SHOULDER, RIGHT CLINICAL INFORMATION: Pain COMPARISON: 02/07/2024 TECHNIQUE: AP external rotation, Grashey, scapular Y, and axillary views of the right shoulder. FINDINGS: Moderate degenerative changes of the right humeral head with disc space narrowing and osteophytosis. No acute fracture or dislocation. XR/XR shoulder RT min 2V IMPRESSION: Moderate degenerative changes of the right shoulder joint. Electronically signed by: Victorina Kelly MD 03/18/2024 08:29 PM [facility]
--- NOTE | ~2024-03-18 | CT_ITS ---
EXAMINATION: CT CHEST, ABDOMEN AND PELVIS WITHOUT CONTRAST CLINICAL INFORMATION: left sided rib pain and low back pain COMPARISON: CT abdomen pelvis 02/26/24. TECHNIQUE: Multidetector volumetric imaging was performed from the thoracic inlet through the pubic symphysis without IV contrast. Sagittal and coronal reformatted images were obtained on the technologist's workstation. This CT examination was performed using dose optimization techniques as appropriate, variously including the following: *Automated exposure control *Adjustment of mA and/or kV according to patient size (this includes techniques or standardized protocols for targeted exams where dose is matched to indication/reason for exam; i.e. extremities or head) *Use of iterative reconstruction technique DLP: 1020 mGy-cm FINDINGS: CHEST: Lung: Some scattered nonspecific groundglass changes are seen. There is bronchial thickening with some mucous plugging at the lung bases. Some minimal emphysematous changes are seen. Small nodules are seen none larger than 4 mm (for example right lower lobe 7:162.) Mediastinum: Heart size borderline. No hilar or mediastinal lymphadenopathy. Pericardium/Pleura: No significant effusion. No pleural mass or thickening. Coronary artery calcium: None appreciated Chest Wall/Axilla: Unremarkable ABDOMEN/PELVIS: Peritoneal Space: No significant free air or free fluid identified. Liver, Gallbladder, Biliary Tree: The liver is mildly enlarged at 18 cm in greatest length. No focal hepatic lesion or intrahepatic biliary ductal dilatation is present. Status post cholecystectomy. The common bile duct is dilated which can often be the case after cholecystectomy. Pancreas: Unremarkable Spleen: Unremarkable Adrenal Glands: Unremarkable Kidneys and Ureters: The kidneys are normal in size, shape, and attenuation. No hydronephrosis, hydroureter, or calculi seen. No perinephric stranding. Bladder: Unremarkable Gastrointestinal Tract: The small and large bowel are unremarkable. Few scattered colonic diverticula without diverticulitis. The appendix is unremarkable. Abdominal Wall: No significant hernia is appreciated. Lymph Nodes: No lymphadenopathy. Vascular: The aorta appears normal.. The IVC appears unremarkable. PELVIC VISCERA: The uterus and adnexa are unremarkable. OSSEUS STRUCTURES: Mild degenerative changes are noted in the spine. No bony destructive lesions are seen. CT/CT abdomen pelvis wo IV con IMPRESSION: 1. A cause for the patient's left-sided rib pain and low back pain has not been found. 2. Incidental note made of bronchial thickening with some mucous plugging at the lung bases, mild hepatomegaly, cholecystectomy and mild degenerative changes in the spine. 3. Other incidental findings as described above. Fleischner guidelines were followed. Electronically signed by: Baldemar Porter MD 03/18/2024 08:52 PM [facility]
--- NOTE | ~2024-03-18 | CT_ITS ---
EXAMINATION: CT CERVICAL SPINE WITHOUT CONTRAST CLINICAL INFORMATION: Fall with head strike COMPARISON: None available. TECHNIQUE: Thin section axial imaging with sagittal and coronal reformats This CT examination was performed using dose optimization techniques as appropriate, variously including the following: *Automated exposure control *Adjustment of mA and/or kV according to patient size (this includes techniques or standardized protocols for targeted exams where dose is matched to indication/reason for exam; i.e. extremities or head) *Use of iterative reconstruction technique DLP: 446 mGy-cm FINDINGS: There is leftward colon is noted, centered at the C2-3 level. No fracture or destructive process. There is mild disc space narrowing at the C4-5 level. No encroachment on the spinal cord. Prevertebral soft tissues normal. There is diffuse prominence to the thyroid gland but no focal lesions are seen. There is minor atherosclerotic calcification in the left common carotid bulb. CT/CT cervical spine wo IV con IMPRESSION: No fracture seen. Fleischner guidelines were followed. Electronically signed by: Leon Light MD 03/18/2024 04:50 PM [facility]
[2024-03-18 15:13] VITALS: BP 120/46; PULSE 71; RESP 18; TEMP 36.6; O2SAT 97; BMI 27.8
--- NOTE | 2024-03-18 15:13 | ED_ITS ---
HPI - General Adult General Chief complaint: Fall Stated complaint: Fall today Time Seen by Provider: 03/18/24 18:25 Related Data Home Medications ?Medication ?Instructions ?Recorded ?Confirmed amlodipine 10 mg tablet 10 mg PO DAILY 02/10/21 01/07/24 aspirin 81 mg tablet,delayed 81 mg PO DAILY 02/10/21 01/07/24 release (Adult Low Dose Aspirin) atorvastatin 80 mg tablet 80 mg PO DAILY 02/10/21 01/07/24 gabapentin 100 mg capsule 100 mg PO DAILY 02/10/21 01/07/24 isosorbide mononitrate 30 mg 30 mg PO QAM 02/10/21 01/07/24 tablet,extended release 24 hr lisinopril 40 mg tablet 40 mg PO DAILY 02/10/21 01/07/24 loratadine 10 mg tablet 10 mg PO DAILY 02/10/21 01/07/24 mecobalamin (vitamin B12) 1,000 1,000 mcg PO DAILY 02/10/21 01/07/24 mcg chewable tablet metformin 500 mg tablet,extended 1,000 mg PO BID 02/10/21 01/07/24 release 24 hr metoprolol succinate 100 mg 100 mg PO DAILY 02/10/21 01/07/24 tablet,extended release 24 hr omeprazole 40 mg capsule,delayed 40 mg PO DAILY 02/10/21 01/07/24 release fluticasone propionate 220 2 puff inhalation BID 06/09/22 01/07/24 mcg/actuation HFA aerosol inhaler (Flovent HFA) Previous Rx's ?Medication ?Instructions ?Recorded acetaminophen 325 mg capsule 650 mg (2 x 325 mg) PO Q6H PRN 01/14/21 pain #20 caps ondansetron 4 mg disintegrating 4 mg PO ONCE PRN nausea and 05/10/21 tablet vomiting #10 tabs dulaglutide 1.5 mg/0.5 mL 1.5 mg (0.5 mL) subcut QWEEK 28 06/16/21 subcutaneous pen injector days #2 mL (Trulicity) insulin degludec 200 unit/mL (3 50 unit (0.25 mL) subcut QPM #9 mL 06/16/21 mL) subcutaneous pen (Tresiba FlexTouch U-200 insulin) lidocaine 5 % topical patch 2 patch topical DAILY #30 ea 03/07/22 (Lidoderm) methylcellulose (laxative) 500 mg 500 mg PO DAILY #90 tabs 06/09/22 tablet (Citrucel) ibuprofen 400 mg tablet 400 mg PO Q6H PRN pain #20 tabs 11/06/22 docusate sodium 100 mg capsule 100 mg PO BEDTIME #90 caps 06/18/23 sennosides 8.6 mg tablet (Natural 17.2 mg (2 x 8.6 mg) PO BEDTIME 06/18/23 Senna Laxative) constipation #180 tabs transport belt #1 ea 08/15/23 meclizine 25 mg tablet 25 mg PO TID PRN dizziness #30 tabs 11/27/23 blood-glucose meter,continuous #1 ea 12/19/23 (FreeStyle Angélica 3 [place]) blood-glucose sensor (FreeStyle #2 ea 12/19/23 Angélica 3 Sensor device) diabetic supplies, [employer]. #1 ea 12/19/23 (CeQur Simplicity Process Safety Manager) celecoxib 200 mg capsule 200 mg PO BID for pain #60 caps 12/21/23 bolus insulin pump, 200 unit 2 #8 ea 01/08/24 unit bolus insulin patch pump, 200 unit, disposable (CeQur Simplicity) insulin aspart U-100 100 unit/mL See Rx Instructions subcut 01/08/24 subcutaneous solution (Novolog USEASDIRECTD #20 mL U-100 Insulin aspart) insulin lispro 100 unit/mL See Rx Instructions subcut TID 30 01/09/24 subcutaneous solution days #20 mL ibuprofen 600 mg tablet 600 mg PO Q6H #20 tabs 02/07/24 oxycodone 5 mg tablet 5 mg PO Q6H PRN pain #20 tabs 02/07/24 Allergies Allergy/AdvReac Type Severity Reaction Status Date / Time morphine [MORPHINE] Allergy Intermediate ITCHY, RASH Verified 03/18/24 15:18 [facility] Past Medical History Medical History Atherosclerotic cardiovascular disease Cardiomyopathy Type 2 diabetes mellitus with diabetic polyneuropathy History of CVA (cerebrovascular accident) Overweight HLD (hyperlipidemia) DM2 (diabetes mellitus, type 2) Asthma Hypertension Depression Myocardial infarction Surgical History Hx of cholecystectomy Hx of section Family History Family History Father No problems noted. Mother No problems noted. Social History Social History Household Members: Significant Other Alcohol intake: never Patient Tobacco Use Status: Former Tobacco user Advance Directives: No Advance Directives Information Provided: Yes Current occupational status: disabled Physical Exam ED Vital Signs: Vital Signs - 24 hr 03/18/24 15:13 03/18/24 18:40 03/18/24 20:43 Temperature 97.8 F 98.0 F 97.9 F Pulse Rate 71 73 71 Respiratory Rate 18 18 16 Blood Pressure 120/46 L 147/69 H 137/49 L Pulse Oximetry 97 94 95 Oxygen Delivery Method Room Air Room Air Room Air BMI result Body Mass Index 27.8 Course Course Course Narrative: This is a rapid medical exam performed by Romaine Henderson DYNAMITE PACKING MACHINE OPERATOR: Additional HPI, ROS, PE not included below will be deferred to primary provider. Patient is a 58-year-old female with history of DM, HLD, HTN, aortic stenosis presenting to the ED with complaint of head injury after fall this am at 5:00. Got up out of bed, became dizzy and lightheaded, had syncopal episode and fell, hit back of head on floor. Also fell at 2pm. Not anticoagulated. Plan: CT head and c-spine, EKG, labs Medications Administered Discontinued Medications Generic Name Dose Route Start Last Admin Trade Name Freq PRN Reason Stop Dose Admin Sodium Chloride 1,000 mls @ 999 mls/hr 03/18/24 19:00 03/18/24 20:54 Ns IV 03/18/24 20:00 999 mls/hr .Q1H1M ADRYAN Administration Medical Decision Making Lab Data 03/18/24 15:35 03/18/24 15:35 Labs: Lab Results 03/18/24 03/18/24 03/18/24 Range/Units 15:35 18:38 18:51 WBC 6.7 (4.8-10.8) X10*3/uL RBC 4.37 (4.20-5.50) X10*6/uL Hgb 12.0 (12.0-16.0) g/dl Hct 36.0 L (37.0-47.0) % MCV 82.4 (80.0-98.0) fL MCH 27.5 (27.0-33.0) pg MCHC 33.3 (31.0-35.0) g/dl RDW 12.8 (11.0-16.0) % Plt Count 300 (160-400) X10*3/uL MPV 10.6 (9.4-12.3) fL Immature Gran % (Auto) 0.3 (0.0-0.4) % Neut % (Auto) 53.2 (45-73) % Lymph % (Auto) 37.2 (20-40) % [place] % (Auto) 7.3 (2-11) % Eos % (Auto) 1.6 (0-4) % Baso % (Auto) 0.4 (0-2) % Lymph # (Auto) 2.5 (1.2-4.9) X10*3/uL [place] # (Auto) 0.5 (0.1-1.2) X10*3/uL Eos # (Auto) 0.1 (0.0-0.4) X10*3/uL Baso # (Auto) 0.0 (0.0-0.2) X10*3/uL Abs Immat Gran (auto) 0.02 (0.00-0.03) X10*3/uL Absolute Neuts (auto) 3.6 (2.0-8.3) x10*3/uL Absolute Nucleated RBC 0.000 (0.0-0.012) X10*3/uL Nucleated RBC % (auto) 0.0 (0.0-0.2) /100WBC PT 11.9 (10.9-12.4) SEC INR 1.0 (0.9-1.1) Sodium 133 L (135-145) mmol/L Potassium 4.9 (3.3-5.1) mmol/L Chloride 98 (96-108) mmol/L Carbon Dioxide 25 (22-29) mmol/L Anion Gap 15 (12-20) BUN 13 (9-16) mg/dL Creatinine 1.08 (0.5-1.4) mg/dL Estim Creat Clear Calc 52.3 Estimated GFR 52 POC Glucose 306 H (60-115) mg/dL Random Glucose 488 H* (60-115) mg/dL Calcium 9.6 (8.4-10.2) mg/dL Magnesium 1.8 (1.6-2.6) mg/dL Total Bilirubin 1.1 H (0.0-1.0) mg/dL AST 19 (5-31) U/L ALT 22 (0-31) U/L Alkaline Phosphatase 97 (39-117) U/L Total Protein 7.1 (6.5-8.0) g/dL Albumin 4.0 (3.5-5.0) g/dL Beta-Hydroxybutyrate 0.20 (0.02-0.27) mmol/L Urine Color Yellow Urine Appearance Clear Urine pH 5.5 (5.0-9.0) Ur Specific [place] >= 1.030 H (1.005-1.025) Urine Protein Negative (Neg-Trace) mg/dL Urine Glucose (UA) >=1000 H (Negative) mg/dL Urine Ketones Negative (Negative) mg/dL Urine Blood Negative (Negative) Urine Nitrite Negative (Negative) Ur Leukocyte Esterase Negative (Negative) Urine RBC 0-2 (0-2) /HPF Urine WBC 0-5 (0-5) /HPF Ur Squamous Epith Cells 0-2 (0-2) /HPF Urine Bacteria None Seen (None Seen) Hyaline Casts 3-5 (0-2) /LPF Influenza Type A (PCR) NEGATIVE (Negative) Influenza Type B (PCR) NEGATIVE (Negative) RSV RNA Qual (PCR) NEGATIVE (Negative) SARS-CoV-2 RNA (RT-PCR) NEGATIVE (Negative) 03/18/24 Range/Units 21:05 WBC (4.8-10.8) X10*3/uL RBC (4.20-5.50) X10*6/uL Hgb (12.0-16.0) g/dl Hct (37.0-47.0) % MCV (80.0-98.0) fL MCH (27.0-33.0) pg MCHC (31.0-35.0) g/dl RDW (11.0-16.0) % Plt Count (160-400) X10*3/uL MPV (9.4-12.3) fL Immature Gran % (Auto) (0.0-0.4) % Neut % (Auto) (45-73) % Lymph % (Auto) (20-40) % [place] % (Auto) (2-11) % Eos % (Auto) (0-4) % Baso % (Auto) (0-2) % Lymph # (Auto) (1.2-4.9) X10*3/uL [place] # (Auto) (0.1-1.2) X10*3/uL Eos # (Auto) (0.0-0.4) X10*3/uL Baso # (Auto) (0.0-0.2) X10*3/uL Abs Immat Gran (auto) (0.00-0.03) X10*3/uL Absolute Neuts (auto) (2.0-8.3) x10*3/uL Absolute Nucleated RBC (0.0-0.012) X10*3/uL Nucleated RBC % (auto) (0.0-0.2) /100WBC PT (10.9-12.4) SEC INR (0.9-1.1) Sodium (135-145) mmol/L Potassium (3.3-5.1) mmol/L Chloride (96-108) mmol/L Carbon Dioxide (22-29) mmol/L Anion Gap (12-20) BUN (9-16) mg/dL Creatinine (0.5-1.4) mg/dL Estim Creat Clear Calc Estimated GFR POC Glucose 256 H (60-115) mg/dL Random Glucose (60-115) mg/dL Calcium (8.4-10.2) mg/dL Magnesium (1.6-2.6) mg/dL Total Bilirubin (0.0-1.0) mg/dL AST (5-31) U/L ALT (0-31) U/L Alkaline Phosphatase (39-117) U/L Total Protein (6.5-8.0) g/dL Albumin (3.5-5.0) g/dL Beta-Hydroxybutyrate (0.02-0.27) mmol/L Urine Color Urine Appearance Urine pH (5.0-9.0) Ur Specific [place] (1.005-1.025) Urine Protein (Neg-Trace) mg/dL Urine Glucose (UA) (Negative) mg/dL Urine Ketones (Negative) mg/dL Urine Blood (Negative) Urine Nitrite (Negative) Ur Leukocyte Esterase (Negative) Urine RBC (0-2) /HPF Urine WBC (0-5) /HPF Ur Squamous Epith Cells (0-2) /HPF Urine Bacteria (None Seen) Hyaline Casts (0-2) /LPF Influenza Type A (PCR) (Negative) Influenza Type B (PCR) (Negative) RSV RNA Qual (PCR) (Negative) SARS-CoV-2 RNA (RT-PCR) (Negative) Discharge Plan Discharge Clinical Impression: DM2 (diabetes mellitus, type 2), Head injury, Contusion Patient Disposition: Home, Self-Care Instructions: Head Injury (ED), Fall Prevention (ED), Diabetes and Nutrition (ED) Prescriptions: No Action Trulicity 1.5 mg/0.5 mL pen injector 1.5 mg subcut QWEEK 28 Days Qty: 2 6RF sennosides [Natural Senna Laxative] 8.6 mg tablet 17.2 mg PO BEDTIME Qty: 180 3RF docusate sodium 100 mg capsule 100 mg PO BEDTIME Qty: 90 3RF celecoxib 200 mg capsule 200 mg PO BID Qty: 60 3RF (DME) CeQur Simplicity 2 unit device See Rx Instructions .Route Qty: 8 11RF Rx Instructions: As directed every 4 days 5 clicks breakfast, 5 clicks lunch and 6 clicks supper Total of 32 units insulin aspart U-100 [Novolog U-100 Insulin aspart] 100 unit/mL solution See Rx Instructions subcut USEASDIRECTD Qty: 20 11RF Rx Instructions: 10 units for breakfast (5 clicks on cequr), 10 units for lunch (five clicks on cequr) 12 units for supper (6 clicks) subcutaneously use as directed; insulin lispro 100 unit/mL solution See Rx Instructions subcut TID MDD 32 units 30 Days Qty: 20 3RF Rx Instructions: 10 units with breakfast (5 clicks on Cequr), 10 units for lunch (5 clicks on cequr) and 12 units for supper (6 clicks on cequr) subcutaneously 3 times a day; may require up to 40 units daily to fill device acetaminophen 325 mg capsule 650 mg PO Q6H PRN (Reason: pain) Qty: 20 0RF ondansetron 4 mg tablet,disintegrating 4 mg PO ONCE PRN (Reason: nausea and vomiting) Qty: 10 0RF lidocaine [Lidoderm] 5 % adhesive patch,medicated 2 patch topical DAILY Qty: 30 0RF Rx Instructions: leave on most painful area for up to 12 hrs oxycodone 5 mg tablet 5 mg PO Q6H PRN (Reason: pain) Qty: 20 0RF Rx Instructions: Partial Fill upon patient request. ibuprofen 600 mg tablet 600 mg PO Q6H Qty: 20 0RF ibuprofen 400 mg tablet 400 mg PO Q6H PRN (Reason: pain) Qty: 20 0RF meclizine 25 mg tablet 25 mg PO TID PRN (Reason: dizziness) Qty: 30 0RF metoprolol succinate 100 mg tablet extended release 24 hr 100 mg PO DAILY atorvastatin 80 mg tablet 80 mg PO DAILY mecobalamin (vitamin B12) 1,000 mcg tablet,chewable 1,000 mcg PO DAILY isosorbide mononitrate 30 mg tablet extended release 24 hr 30 mg PO QAM lisinopril 40 mg tablet 40 mg PO DAILY loratadine 10 mg tablet 10 mg PO DAILY aspirin [Adult Low Dose Aspirin] 81 mg tablet,delayed release (DR/EC) 81 mg PO DAILY omeprazole 40 mg capsule,delayed release(DR/EC) 40 mg PO DAILY metformin 500 mg tablet extended release 24 hr 1,000 mg PO BID gabapentin 100 mg capsule 100 mg PO DAILY amlodipine 10 mg tablet 10 mg PO DAILY fluticasone propionate [Flovent HFA] 220 mcg/actuation HFA aerosol inhaler 2 puff inhalation BID Citrucel 500 mg tablet 500 mg PO DAILY Qty: 90 2RF Rx Instructions: take it with full glass of water Tresiba FlexTouch U-200 200 unit/mL (3 mL) insulin pen 50 unit subcut QPM Qty: 9 6RF (DME) transport belt See Rx Instructions .Route .MEDSUPPLY Qty: 1 0RF Rx Instructions: As directed (DME) FreeStyle Angélica 3 [place] Misc See Rx Instructions .ROUTE .MEDSUPPLY Qty: 1 0RF Rx Instructions: As directed (DME) FreeStyle Angélica 3 Sensor Device See Rx Instructions .ROUTE .MEDSUPPLY Qty: 2 11RF Rx Instructions: As directed (DME) CeQur Simplicity Process Safety Manager Misc See Rx Instructions .Route Qty: 1 1RF Rx Instructions: As directed Referrals: Dallas Butler MD [Primary Care Provider] - 03/19/24 Print Language: Maori
--- NOTE | 2024-03-18 15:15 | ECG_ITS ---
Test Reason : fall Blood Pressure : / mmHG Vent. Rate : 069 BPM Atrial Rate : 069 BPM P-R Int : 242 ms QRS Dur : 088 ms QT Int : 406 ms P-R-T Axes : 054 -08 027 degrees QTc Int : 435 ms Sinus rhythm with 1st degree A-V block Minimal voltage criteria for LVH, may be normal variant ( R in aVL ) Anterior infarct , age undetermined Abnormal ECG When compared with ECG of 26-NOV-2023 19:42, Anterior infarct is now Present Referred By: Elda Henderson Electronically Signed By:SHANNON ALDANA MD
[2024-03-18 15:43] LABS: MANUAL DIFF FLAG NO
[2024-03-18 15:44] LABS: Basophils Percent Auto 0.4 % (0-2); Eosinophils Absolute Auto 0.1 X10*3/uL (0.0-0.4); Eosinophils Percent Auto 1.6 % (0-4); Imm Gran Abs Auto 0.02 X10*3/uL (0.00-0.03); Imm Gran Pct Auto 0.3 % (0.0-0.4); Lymphocytes Absolute Auto 2.5 X10*3/uL (1.2-4.9); Lymphocytes Percent Auto 37.2 % (20-40); Mean Corpuscular HGB Conc 33.3 g/dl (31.0-35.0); Mean Corpuscular Hemoglobin 27.5 pg (27.0-33.0); Mean Corpuscular Volume 82.4 fL (80.0-98.0); Mean Platelet Volume 10.6 fL (9.4-12.3); Monocytes Absolute Auto 0.5 X10*3/uL (0.1-1.2); Monocytes Percent Auto 7.3 % (2-11); Neutrophils Absolute Auto 3.6 x10*3/uL (2.0-8.3); Neutrophils Percent Auto 53.2 % (45-73); Platelet Count 300 X10*3/uL (160-400); Red Blood Count 4.37 X10*6/uL (4.20-5.50); Red Cell Distribution Width 12.8 % (11.0-16.0); White Blood Count 6.7 X10*3/uL (4.8-10.8)
[2024-03-18 15:56] LABS: Prothrombin Time 11.9 SEC (10.9-12.4)
[2024-03-18 16:09] LABS: Alanine Aminotransferase 22 U/L (0-31); Alkaline Phosphatase 97 U/L (39-117); Anion Gap 15 (12-20); Aspartate Amino Transferase 19 U/L (5-31); Bilirubin Total 1.1 mg/dL (0.0-1.0); Blood Urea Nitrogen 13 mg/dL (9-16); Calcium 9.6 mg/dL (8.4-10.2); Carbon Dioxide 25 mmol/L (22-29); Chloride 98 mmol/L (96-108); Creatinine Clr Calc Pharmacy 52.3; Estimated Glomerular Filt Rate 52; Glucose Random 488 mg/dL (60-115); Magnesium 1.8 mg/dL (1.6-2.6); Potassium 4.9 mmol/L (3.3-5.1); Sodium 133 mmol/L (135-145); Total Protein 7.1 g/dL (6.5-8.0)
[2024-03-18 16:26] LABS: Influenza A PCR NEGATIVE (Negative); Influenza B PCR NEGATIVE (Negative); Resp Syncy Virus RNA Qual PCR NEGATIVE (Negative); SARS COV2 PCR INHOUSE NEGATIVE (Negative)
[2024-03-18 18:40] VITALS: BP 147/69; PULSE 73; RESP 18; TEMP 36.7; O2SAT 94
[2024-03-18 18:42] LABS: Glucose, Whole Blood 306 mg/dL (60-115)
--- NOTE | 2024-03-18 19:02 | ED.FALL ---
HPI - Fall General Chief Complaint: Fall Stated Complaint: Fall today Time Seen by Provider: 03/18/24 18:25 History of Present Illness HPI Narrative: Patient is a 58-year-old female was trying to get up from bed. Subsequently fell. Hitting her head she then felt dizzy hit her shoulder. Patient has a history of fall also this time patient landed on her left rib she had had a previous right-sided rib fracture. Patient is diabetic. Denies any chest pain associated with the symptoms. No fever no chills also complaining of extreme lower back pain. There is no bowel urinary incontinence. There is no focal weakness. Patient from home. Related Data Home Medications ?Medication ?Instructions ?Recorded ?Confirmed amlodipine 10 mg tablet 10 mg PO DAILY 02/10/21 01/07/24 aspirin 81 mg tablet,delayed 81 mg PO DAILY 02/10/21 01/07/24 release (Adult Low Dose Aspirin) atorvastatin 80 mg tablet 80 mg PO DAILY 02/10/21 01/07/24 gabapentin 100 mg capsule 100 mg PO DAILY 02/10/21 01/07/24 isosorbide mononitrate 30 mg 30 mg PO QAM 02/10/21 01/07/24 tablet,extended release 24 hr lisinopril 40 mg tablet 40 mg PO DAILY 02/10/21 01/07/24 loratadine 10 mg tablet 10 mg PO DAILY 02/10/21 01/07/24 mecobalamin (vitamin B12) 1,000 1,000 mcg PO DAILY 02/10/21 01/07/24 mcg chewable tablet metformin 500 mg tablet,extended 1,000 mg PO BID 02/10/21 01/07/24 release 24 hr metoprolol succinate 100 mg 100 mg PO DAILY 02/10/21 01/07/24 tablet,extended release 24 hr omeprazole 40 mg capsule,delayed 40 mg PO DAILY 02/10/21 01/07/24 release fluticasone propionate 220 2 puff inhalation BID 06/09/22 01/07/24 mcg/actuation HFA aerosol inhaler (Flovent HFA) Previous Rx's ?Medication ?Instructions ?Recorded acetaminophen 325 mg capsule 650 mg (2 x 325 mg) PO Q6H PRN 01/14/21 pain #20 caps ondansetron 4 mg disintegrating 4 mg PO ONCE PRN nausea and 05/10/21 tablet vomiting #10 tabs dulaglutide 1.5 mg/0.5 mL 1.5 mg (0.5 mL) subcut QWEEK 28 06/16/21 subcutaneous pen injector days #2 mL (Trulicity) insulin degludec 200 unit/mL (3 50 unit (0.25 mL) subcut QPM #9 mL 06/16/21 mL) subcutaneous pen (Tresiba FlexTouch U-200 insulin) lidocaine 5 % topical patch 2 patch topical DAILY #30 ea 03/07/22 (Lidoderm) methylcellulose (laxative) 500 mg 500 mg PO DAILY #90 tabs 06/09/22 tablet (Citrucel) ibuprofen 400 mg tablet 400 mg PO Q6H PRN pain #20 tabs 11/06/22 docusate sodium 100 mg capsule 100 mg PO BEDTIME #90 caps 06/18/23 sennosides 8.6 mg tablet (Natural 17.2 mg (2 x 8.6 mg) PO BEDTIME 06/18/23 Senna Laxative) constipation #180 tabs transport belt #1 ea 08/15/23 meclizine 25 mg tablet 25 mg PO TID PRN dizziness #30 tabs 11/27/23 blood-glucose meter,continuous #1 ea 12/19/23 (FreeStyle Angélica 3 [place]) blood-glucose sensor (FreeStyle #2 ea 12/19/23 Angélica 3 Sensor device) diabetic supplies, [employer]. #1 ea 12/19/23 (CeQur Simplicity Porter Baggage) celecoxib 200 mg capsule 200 mg PO BID for pain #60 caps 12/21/23 bolus insulin pump, 200 unit 2 #8 ea 01/08/24 unit bolus insulin patch pump, 200 unit, disposable (CeQur Simplicity) insulin aspart U-100 100 unit/mL See Rx Instructions subcut 01/08/24 subcutaneous solution (Novolog USEASDIRECTD #20 mL U-100 Insulin aspart) insulin lispro 100 unit/mL See Rx Instructions subcut TID 30 01/09/24 subcutaneous solution days #20 mL ibuprofen 600 mg tablet 600 mg PO Q6H #20 tabs 02/07/24 oxycodone 5 mg tablet 5 mg PO Q6H PRN pain #20 tabs 02/07/24 Allergies Allergy/AdvReac Type Severity Reaction Status Date / Time morphine [MORPHINE] Allergy Intermediate ITCHY, RASH Verified 03/18/24 15:18 Review of Systems Review of Systems: Positive accidental fall hitting right shoulder hitting head hitting left rib pitting lower back Yes all other systems are reviewed and are negative [facility] Past Medical History Attestation statement: The following information was validated with the patient. Medical History Atherosclerotic cardiovascular disease Cardiomyopathy Type 2 diabetes mellitus with diabetic polyneuropathy History of CVA (cerebrovascular accident) Overweight HLD (hyperlipidemia) DM2 (diabetes mellitus, type 2) Asthma Hypertension Depression Myocardial infarction Surgical History Hx of cholecystectomy Hx of section Family History Family History Father No problems noted. Mother No problems noted. Social History Social History Household Members: Significant Other Alcohol intake: never Patient Tobacco Use Status: Former Tobacco user Advance Directives: No Advance Directives Information Provided: Yes Current occupational status: disabled Physical Exam Vital Signs: Vital Signs: Last Vital Signs Temp 97.9 F 03/18/24 20:43 Pulse 71 03/18/24 20:43 Resp 16 03/18/24 20:43 BP 137/49 L 03/18/24 20:43 Pulse Ox 95 03/18/24 20:43 O2 Del Method Room Air 03/18/24 20:43 BMI result Body Mass Index 27.8 Appearance: Alert. Oriented X3. No acute distress. Eyes: Pupils equal, round and reactive to light. ENT: Pharynx normal. Neck: Normal inspection. Neck supple. No lymph nodes noted. No crepitus CVS: Normal heart rate and rhythm. Pulses normal. Normal S1 and S2 Respiratory: No respiratory distress. Breath sounds normal. No Wheezing. No rales Abdomen: Soft and nontender. No rigidity. No distention. good BS x4 Skin: Skin warm and dry. Normal skin color. Normal skin turgor. Extremities: No lower extremity edema. Neurovascular intact to all extremities. No Lacerations. No Rash Neuro: Oriented X 3. No motor deficit. No sensory deficit. Moving all extermities. No slurred speech Medications Administered Discontinued Medications Generic Name Dose Route Start Last Admin Trade Name Deborah PRN Reason Stop Dose Admin Sodium Chloride 1,000 mls @ 999 mls/hr 03/18/24 19:00 03/18/24 20:54 Ns IV 03/18/24 20:00 999 mls/hr .Q1H1M ADRYAN Administration Medical Decision Making Medical Decision Making [facility] Narrative: 58-year-old female status post accidental fall. After falling patient had some dizziness. CT scan of the head by my interpretation is grossly negative. Radiology report of the CT C-spine was reviewed. No gross fracture noted. Patient complaining of pain on the left chest lower back. CTA of the chest CT of the abdomen pelvis was done. Grossly there is no intra-abdominal bleeding. There is no left-sided rib fracture. There is no gross fracture in the spine. Patient sugar initially was over 400. Over time it is down to 300 range. No evidence for diabetic ketoacidosis. Explained to patient the need for close follow-up. Patient states understanding. Will be more careful. In stable condition. Also complaining of right shoulder pain. X-ray of the right shoulder was done. My interpretation of the x-ray showed no acute fracture. Differential Diagnosis Differential Diagnoses: The differential diagnosis associated with the presentation includes Contusion, rib fracture, pneumothorax, back fracture Admission/Observation Consideration of admission/observation: Escalation of care including admission/observation considered Lab Data [facility] Lab Attestation statement: I reviewed the patient's lab results. 03/18/24 15:35 03/18/24 15:35 Labs: Lab Results 03/18/24 03/18/24 03/18/24 Range/Units 15:35 18:38 18:51 WBC 6.7 (4.8-10.8) X10*3/uL RBC 4.37 (4.20-5.50) X10*6/uL Hgb 12.0 (12.0-16.0) g/dl Hct 36.0 L (37.0-47.0) % MCV 82.4 (80.0-98.0) fL MCH 27.5 (27.0-33.0) pg MCHC 33.3 (31.0-35.0) g/dl RDW 12.8 (11.0-16.0) % Plt Count 300 (160-400) X10*3/uL MPV 10.6 (9.4-12.3) fL Immature Gran % (Auto) 0.3 (0.0-0.4) % Neut % (Auto) 53.2 (45-73) % Lymph % (Auto) 37.2 (20-40) % [place] % (Auto) 7.3 (2-11) % Eos % (Auto) 1.6 (0-4) % Baso % (Auto) 0.4 (0-2) % Lymph # (Auto) 2.5 (1.2-4.9) X10*3/uL [place] # (Auto) 0.5 (0.1-1.2) X10*3/uL Eos # (Auto) 0.1 (0.0-0.4) X10*3/uL Baso # (Auto) 0.0 (0.0-0.2) X10*3/uL Abs Immat Gran (auto) 0.02 (0.00-0.03) X10*3/uL Absolute Neuts (auto) 3.6 (2.0-8.3) x10*3/uL Absolute Nucleated RBC 0.000 (0.0-0.012) X10*3/uL Nucleated RBC % (auto) 0.0 (0.0-0.2) /100WBC PT 11.9 (10.9-12.4) SEC INR 1.0 (0.9-1.1) Sodium 133 L (135-145) mmol/L Potassium 4.9 (3.3-5.1) mmol/L Chloride 98 (96-108) mmol/L Carbon Dioxide 25 (22-29) mmol/L Anion Gap 15 (12-20) BUN 13 (9-16) mg/dL Creatinine 1.08 (0.5-1.4) mg/dL Estim Creat Clear Calc 52.3 Estimated GFR 52 POC Glucose 306 H (60-115) mg/dL Random Glucose 488 H* (60-115) mg/dL Calcium 9.6 (8.4-10.2) mg/dL Magnesium 1.8 (1.6-2.6) mg/dL Total Bilirubin 1.1 H (0.0-1.0) mg/dL AST 19 (5-31) U/L ALT 22 (0-31) U/L Alkaline Phosphatase 97 (39-117) U/L Total Protein 7.1 (6.5-8.0) g/dL Albumin 4.0 (3.5-5.0) g/dL Beta-Hydroxybutyrate 0.20 (0.02-0.27) mmol/L Urine Color Yellow Urine Appearance Clear Urine pH 5.5 (5.0-9.0) Ur Specific [place] >= 1.030 H (1.005-1.025) Urine Protein Negative (Neg-Trace) mg/dL Urine Glucose (UA) >=1000 H (Negative) mg/dL Urine Ketones Negative (Negative) mg/dL Urine Blood Negative (Negative) Urine Nitrite Negative (Negative) Ur Leukocyte Esterase Negative (Negative) Urine RBC 0-2 (0-2) /HPF Urine WBC 0-5 (0-5) /HPF Ur Squamous Epith Cells 0-2 (0-2) /HPF Urine Bacteria None Seen (None Seen) Hyaline Casts 3-5 (0-2) /LPF Influenza Type A (PCR) NEGATIVE (Negative) Influenza Type B (PCR) NEGATIVE (Negative) RSV RNA Qual (PCR) NEGATIVE (Negative) SARS-CoV-2 RNA (RT-PCR) NEGATIVE (Negative) Independent Interpretation I performed an independent interpretation of an: EKG (My interpretation patient's EKG showed a sinus rhythm heart rate is 70 [place] QRS QTC normal no acute ST segment elevation.), Plain X-Ray (X-ray of the right shoulder showed no acute fracture) and CT Scan (CT head was grossly negative for any acute evidence of bleeding no fracture) Radiology Impression Discussion of test interpretation with radiology: I have reviewed the radiologist's reading. External Record Review External record reviewed: Inpatient record Prescription Management I considered prescription management with: Pain Medication Chronic Conditions Patient?s care impacted by: Diabetes and Hypertension Social Determinants Patient?s care significantly limited by Social Determinants of Health including: Problems related to primary support group Discharge Plan Discharge Clinical Impression: DM2 (diabetes mellitus, type 2), Head injury, Contusion Patient Disposition: Home, Self-Care Instructions: Head Injury (ED), Diabetes and Nutrition (ED), Fall Prevention (ED) Prescriptions: No Action Trulicity 1.5 mg/0.5 mL pen injector 1.5 mg subcut QWEEK 28 Days Qty: 2 6RF sennosides [Natural Senna Laxative] 8.6 mg tablet 17.2 mg PO BEDTIME Qty: 180 3RF docusate sodium 100 mg capsule 100 mg PO BEDTIME Qty: 90 3RF celecoxib 200 mg capsule 200 mg PO BID Qty: 60 3RF (DME) CeQur Simplicity 2 unit device See Rx Instructions .Route Qty: 8 11RF Rx Instructions: As directed every 4 days 5 clicks breakfast, 5 clicks lunch and 6 clicks supper Total of 32 units insulin aspart U-100 [Novolog U-100 Insulin aspart] 100 unit/mL solution See Rx Instructions subcut USEASDIRECTD Qty: 20 11RF Rx Instructions: 10 units for breakfast (5 clicks on cequr), 10 units for lunch (five clicks on cequr) 12 units for supper (6 clicks) subcutaneously use as directed; insulin lispro 100 unit/mL solution See Rx Instructions subcut TID MDD 32 units 30 Days Qty: 20 3RF Rx Instructions: 10 units with breakfast (5 clicks on Cequr), 10 units for lunch (5 clicks on cequr) and 12 units for supper (6 clicks on cequr) subcutaneously 3 times a day; may require up to 40 units daily to fill device acetaminophen 325 mg capsule 650 mg PO Q6H PRN (Reason: pain) Qty: 20 0RF ondansetron 4 mg tablet,disintegrating 4 mg PO ONCE PRN (Reason: nausea and vomiting) Qty: 10 0RF lidocaine [Lidoderm] 5 % adhesive patch,medicated 2 patch topical DAILY Qty: 30 0RF Rx Instructions: leave on most painful area for up to 12 hrs oxycodone 5 mg tablet 5 mg PO Q6H PRN (Reason: pain) Qty: 20 0RF Rx Instructions: Partial Fill upon patient request. ibuprofen 600 mg tablet 600 mg PO Q6H Qty: 20 0RF ibuprofen 400 mg tablet 400 mg PO Q6H PRN (Reason: pain) Qty: 20 0RF meclizine 25 mg tablet 25 mg PO TID PRN (Reason: dizziness) Qty: 30 0RF metoprolol succinate 100 mg tablet extended release 24 hr 100 mg PO DAILY atorvastatin 80 mg tablet 80 mg PO DAILY mecobalamin (vitamin B12) 1,000 mcg tablet,chewable 1,000 mcg PO DAILY isosorbide mononitrate 30 mg tablet extended release 24 hr 30 mg PO QAM lisinopril 40 mg tablet 40 mg PO DAILY loratadine 10 mg tablet 10 mg PO DAILY aspirin [Adult Low Dose Aspirin] 81 mg tablet,delayed release (DR/EC) 81 mg PO DAILY omeprazole 40 mg capsule,delayed release(DR/EC) 40 mg PO DAILY metformin 500 mg tablet extended release 24 hr 1,000 mg PO BID gabapentin 100 mg capsule 100 mg PO DAILY amlodipine 10 mg tablet 10 mg PO DAILY fluticasone propionate [Flovent HFA] 220 mcg/actuation HFA aerosol inhaler 2 puff inhalation BID Citrucel 500 mg tablet 500 mg PO DAILY Qty: 90 2RF Rx Instructions: take it with full glass of water Tresiba FlexTouch U-200 200 unit/mL (3 mL) insulin pen 50 unit subcut QPM Qty: 9 6RF (DME) transport belt See Rx Instructions .Route .MEDSUPPLY Qty: 1 0RF Rx Instructions: As directed (DME) FreeStyle Angélica 3 Palco Misc See Rx Instructions .ROUTE .MEDSUPPLY Qty: 1 0RF Rx Instructions: As directed (DME) FreeStyle Angélica 3 Sensor Device See Rx Instructions .ROUTE .MEDSUPPLY Qty: 2 11RF Rx Instructions: As directed (DME) CeQur Simplicity Porter Baggage Misc See Rx Instructions .Route Qty: 1 1RF Rx Instructions: As directed Referrals: Dallas Butler MD [Primary Care Provider] - 03/19/24 Print Language: Kazakh
[2024-03-18 19:09] LABS: Appearance Urine Clear; Color Urine Yellow; Glucose Urine UA >=1000 mg/dL (Negative); Leukocyte Esterase Urine Negative (Negative); Nitrite Urine Negative (Negative); PH 5.5 (5.0-9.0); Specific Gravity - Urine >= 1.030 (1.005-1.025); UMIC TRIGGER UACC YES; Urine Blood Negative (Negative); Urine Ketones Negative (Negative); Urine Protein Negative (Neg-Trace)
[2024-03-18 19:14] LABS: Bacteria Urine None Seen (None Seen); RBC Urine 0-2 /HPF (0-2); Squamous Epithelial Cell Urine 0-2 /HPF (0-2); WBC Urine 0-5 /HPF (0-5)
[2024-03-18 20:43] VITALS: BP 137/49; PULSE 71; RESP 16; TEMP 36.6; O2SAT 95
[2024-03-18] MEDS: 0.9 % Sodium Chloride 1,000 ML 999 ML IV (20:54)
[2024-03-18 21:10] LABS: Glucose, Whole Blood 256 mg/dL (60-115)
[2024-03-18 22:56] VITALS: BP 142/44; PULSE 75; RESP 16; TEMP 36.9; O2SAT 97
== END 2024-03-18 23:08 | disposition home or self-care (01) ==
PROVIDERS: Registered Nurse Emergency; Emergency Provider Emergency Medicine Emergency Medical Services; PCP Internal Medicine
DX: S00.93XA Contusion of unspecified part of head, initial encounter (principal); S40.011A Contusion of right shoulder, initial encounter; M25.511 Pain in right shoulder; R51.9 Headache, unspecified; R07.89 Other chest pain; M54.2 Cervicalgia; R11.0 Nausea; E11.9 Type 2 diabetes mellitus without complications; W01.10XA Fall on same level from slipping, tripping and stumbling with subsequent striking against unspecified object, initial encounter; Y93.89 Activity, other specified; Y92.89 Other specified places as the place of occurrence of the external cause; Y99.8 Other external cause status; Z79.899 Other long term (current) drug therapy; Z79.4 Long term (current) use of insulin; Z86.73 Personal history of transient ischemic attack (TIA), and cerebral infarction without residual deficits; Z03.818 Encounter for observation for suspected exposure to other biological agents ruled out
CPT/HCPCS: 0241U; 70450; 71250; 72125; 73030; 74176; 80053; 81001; 82010; 82947; 83735; 85025; 85610; 93005; 96360; 96361; 99284

== ENCOUNTER → 2024-03-18 15:15 | Outpatient (BNV) | payer MEDICAID, SELFPAY | PROVIDERS: Emergency Provider Emergency Medicine Emergency Medical Services; PCP Internal Medicine; Visit Provider Internal Medicine Cardiovascular Disease | DX: R94.31 Abnormal electrocardiogram [ECG] [EKG] (principal) | CPT/HCPCS: 93010 ==

== ENCOUNTER 2024-03-21 09:00 | Outpatient (AMB) | payer MEDICAID, SELFPAY ==
--- NOTE | 2024-03-21 09:15 | A.OFFVIS_ITS ---
Vital Signs 03/21/24 09:27 Height 5 ft 2 in Weight 151 lb BMI 27.6 Intake Visit Reasons: Newprob-right shoulder injury-DOI 02/07/24 Intake Note: Wendy a 58 year old female who presents today with her niece/[employer]OM[employer]AD for an evaluation of right shoulder s/p fall, DOI 02/07/24. Patient reports having 3 more falls after her initial fall and was seen at [facility] twice where x-rays were taken. Her pain has increased and is located in her shoulder anterior and posterior aspect. No numbness or tingling. Finds no relief with Tylenol or Motrin. Allergies morphine [MORPHINE] Allergy (Intermediate, Verified 03/21/24 09:17) ITCHY, RASH oxycodone Allergy (Verified 03/21/24 09:17) Hives HPI HPI Newprob-right shoulder injury-DOI 02/07/24: Details: 58-year-old female who presents to the office today with her niece/[employer] Q[employer] LEAD for an evaluation of right shoulder injury after a fall, 02/07/24. She reports she had 3 more falls after her initial fall and was seen at ER where x-rays were performed. She currently states she has increased pain at the anterior aspect and posterior aspect of her right shoulder. She denies any numbness or tingling. She finds no relief with Tylenol or Motrin. [facility] Medical History Atherosclerotic cardiovascular disease Cardiomyopathy Type 2 diabetes mellitus with diabetic polyneuropathy History of CVA (cerebrovascular accident) Overweight HLD (hyperlipidemia) DM2 (diabetes mellitus, type 2) Asthma Hypertension Depression Myocardial infarction Surgical History Hx of cholecystectomy Hx of section Family History Father No problems noted. Mother No problems noted. Social History Household Members: Significant Other Alcohol intake: never Patient Tobacco Use Status: Former Tobacco user Current occupational status: disabled Review of Systems Const All systems reviewed & are unremarkable except as noted in HPI and below Physical Exam Vital Signs: BMI result Body Mass Index 27.6 Extrem Other: Right shoulder: Normal to inspection. She has tenderness over the trapezium in the right side that extends to the greater tuberosity into the deltoid region. She has limited forward flexion to about 85 degrees. Office Procedures AMB Fracture Care Fracture Billing Code: Fracture Billing Code Results Reviewed Results Reviewed: xrays of the right shoulder obtained on 03/18/24 show healing greater tuberoisty fracture Assessment & Plan Assessment & Plan (1) Fracture of greater tuberosity of right humerus: Code(s): S42.251A - Displaced fracture of greater tuberosity of right humerus, initial encounter for closed fracture Category: Medical Plan We discussed options which include PT, NSAIDs. The patient will proceed with PT and NSAIDs. She will begin PT for ROM, rtc and periscap stabilization. She will see me back if symptoms persist or worsen. Orders: Orders PT Evaluation and Treatment Today S42.251A - Displaced fracture of greater tuberosity of right humerus, initial encounter for closed fracture Patient Instructions: Scribed for Carlyn Forde PA-C, by Jonnathan Wolf clinical specialist medical device, on 03/21/2024 at 9:15 AM EST.? I, Carlyn Frode PA-C, have personally reviewed and agree with the information entered by the scribe. Coding Level of Care Code Est Pt Level 3 (07562) Complex EM visit Add On G2211 Diagnoses Fracture of greater tuberosity of right humerus S42.251A CPT Codes Fracture Care - Fracture Billing Code: Fracture Billing Code ([id number])
[2024-03-21 09:27] VITALS: BMI 27.6
== END 2024-03-21 10:22 | disposition home or self-care (01) ==
PROVIDERS: PCP Internal Medicine; Visit Provider Physician Assistant
DX: S42.251A Displaced fracture of greater tuberosity of right humerus, initial encounter for closed fracture (principal)
CPT/HCPCS: 99213

== ENCOUNTER → 2024-03-21 09:00 | Outpatient (BNVA) | payer MEDICAID, SELFPAY | PROVIDERS: PCP Internal Medicine; Visit Provider Physician Assistant | DX: S42.251A Displaced fracture of greater tuberosity of right humerus, initial encounter for closed fracture (principal) | CPT/HCPCS: 99212 ==

== ENCOUNTER 2024-04-09 09:25 | Outpatient (AMB) | payer MEDICAID, SELFPAY ==
[2024-04-09 09:33] VITALS: BMI 27.6
--- NOTE | 2024-04-09 09:33 | MHC.OFFVIS ---
Vital Signs 04/09/24 09:33 Height 5 ft 2 in Weight 151 lb BMI 27.6 Intake Visit Reasons: Inj-Left knee injection last inj 01/07/2024 Intake Note: Wendy a 58 year old female who presents today for a follow up of bilateral knee pain, left knee injection on 01/07/24. Patient reports injections provide her with relief for a few weeks and her pain will return. She is requesting to have a right knee injection today. Allergies morphine [MORPHINE] Allergy (Intermediate, Verified 04/09/24 09:49) ITCHY, RASH oxycodone Allergy (Verified 04/09/24 09:49) Hives Medication List - Last Reconciled 04/09/24 by Carlyn Forde PA-C acetaminophen 650 mg (2 x 325 mg) PO Q6H PRN amlodipine 10 mg PO DAILY aspirin (Adult Low Dose Aspirin) 81 mg PO DAILY atorvastatin 80 mg PO DAILY blood-glucose meter,continuous (FreeStyle Angélica 3 [place]) As directed blood-glucose sensor (FreeStyle Angélica 3 Sensor device) As directed bolus insulin pump, 200 unit (CeQur Simplicity) As directed every 4 days 5 clicks breakfast, 5 clicks lunch and 6 clicks supper Total of 32 units celecoxib 200 mg PO BID diabetic supplies, miscellan. (CeQur Simplicity Rehabilitation Medicine Physician) As directed docusate sodium 100 mg PO BEDTIME dulaglutide (Trulicity) 1.5 mg (0.5 mL) subcut QWEEK 28 days fluticasone propionate 220 mcg/actuation (Flovent HFA) 2 puffs inhalation BID gabapentin 100 mg PO DAILY ibuprofen 400 mg PO Q6H PRN ibuprofen 600 mg PO Q6H insulin aspart U-100 (Novolog U-100 Insulin aspart) 10 units for breakfast (5 clicks on cequr), 10 units for lunch (five clicks on cequr) 12 units for supper (6 clicks) subcutaneously use as directed; insulin degludec (Tresiba FlexTouch U-200 insulin) 50 units (0.25 mL) subcut QPM insulin lispro 10 units with breakfast (5 clicks on Cequr), 10 units for lunch (5 clicks on cequr) and 12 units for supper (6 clicks on cequr) subcutaneously 3 times a day; may require up to 40 units daily to fill device 30 days MDD 32 units isosorbide mononitrate ER 30 mg PO QAM lidocaine 5% (Lidoderm) 2 patches topical DAILY lisinopril 40 mg PO DAILY loratadine 10 mg PO DAILY meclizine 25 mg PO TID PRN mecobalamin (vitamin B12) 1,000 mcg PO DAILY metformin ER 1,000 mg PO BID methylcellulose (laxative) (Citrucel) 500 mg PO DAILY metoprolol succinate ER 100 mg PO DAILY omeprazole 40 mg PO DAILY ondansetron 4 mg PO ONCE PRN sennosides (Natural Senna Laxative) 17.2 mg (2 x 8.6 mg) PO BEDTIME [transport belt As directed] HPI HPI Inj-Left knee injection last inj 01/07/2024: Details: 58-year-old female who returns to the office today for a follow-up of left knee pain. She had her last injection on 01/07/24 that provided her relief for a few weeks. She would like to repeat the injection. She has a history of diabetes. Her sugar level is around 300s. REPLACED BY [facility] Medical History Atherosclerotic cardiovascular disease Cardiomyopathy Type 2 diabetes mellitus with diabetic polyneuropathy History of CVA (cerebrovascular accident) Overweight HLD (hyperlipidemia) DM2 (diabetes mellitus, type 2) Asthma Hypertension Depression Myocardial infarction Surgical History Hx of cholecystectomy Hx of section Family History Father No problems noted. Mother No problems noted. Social History Household Members: Significant Other Alcohol intake: never Patient Tobacco Use Status: Former Tobacco user Current occupational status: disabled Review of Systems Const All systems reviewed & are unremarkable except as noted in HPI and below Physical Exam Vital Signs: BMI result Body Mass Index 27.6 Extrem Other: Left knee: Skin intact, no erythema or joint effusion. Tenderness along the medial and lateral joint line. Full ROM with crepitus. Negative Cinthia?s. No ligamentous laxity. NVI. Assessment & Plan Assessment & Plan (1) Osteoarthritis of left knee: Code(s): M17.12 - Unilateral primary osteoarthritis, left knee Category: Medical Qualifiers: Osteoarthritis type: primary Qualified Code(s): M17.12 - Unilateral primary osteoarthritis, left knee Plan At this time her sugar was in the 300s. I explained that I do not feel comfortable to give her a cortisone injection at this time. She will continue to monitor this for a few days. If she gets this to a safe level of mid 100s, she will contact the office for a left knee steroid injection. Patient Instructions: Scribed for Carlyn Forde PA-C, by Jonnathan Wolf medical staff director, on 04/09/2024 at 9:45 AM EST.? I, Carlyn Forde PA-C, have personally reviewed and agree with the information entered by the scribe. Coding Level of Care Code Est Pt Level 3 (00874) Complex EM visit Add On G2211 Diagnoses Primary osteoarthritis of left knee M17.12 Osteoarthritis type: primary
== END 2024-04-09 11:12 | disposition home or self-care (01) ==
PROVIDERS: PCP Internal Medicine; Visit Provider Physician Assistant
DX: M17.12 Unilateral primary osteoarthritis, left knee (principal)
CPT/HCPCS: 99213

== ENCOUNTER → 2024-04-09 09:25 | Outpatient (BNVA) | payer MEDICAID, SELFPAY | PROVIDERS: PCP Internal Medicine; Visit Provider Physician Assistant | DX: M17.12 Unilateral primary osteoarthritis, left knee (principal) | CPT/HCPCS: 99212; J1010; J2003 ==

== ENCOUNTER 2024-04-18 18:53 | Emergency (ER) | payer MEDICAID, SELFPAY ==
--- NOTE | ~2024-04-18 | XR_ITS ---
EXAMINATION: XR RIBS, LEFT CLINICAL INFORMATION: fall COMPARISON: February 07, 2024 TECHNIQUE: A frontal chest and 3 views of the left ribs were obtained. FINDINGS: Lungs are clear. No consolidation, pneumothorax, or pleural effusion. The cardiomediastinal silhouette and pulmonary vasculature are normal. There are old healed fractures of the lateral 7th through 10 ribs on the left. No definitive acute fracture is seen. XR/XR ribs LT min 3V w CXR1V IMPRESSION: Old healed fractures of the lateral 7th through 10th ribs on the left. No definitive acute fracture is seen. Electronically signed by: Bautista Hansen MD 04/19/2024 12:22 AM [place]
[2024-04-18 18:58] VITALS: BP 131/68; BP 146/82; PULSE 67; PULSE 84; RESP 17; TEMP 37.2; O2SAT 94; O2SAT 97; BMI 28.0
[2024-04-18 19:12] VITALS: BP 131/68; PULSE 67; RESP 16; TEMP 37.2; O2SAT 94
--- NOTE | 2024-04-18 21:58 | ED.FALL ---
HPI - Fall General Chief Complaint: Fall Stated Complaint: FALL, +COLLAR, HS -THINNERS PER EMS Time Seen by Provider: 04/18/24 21:54 Source: patient Mode of arrival: EMS Limitations: no limitations History of Present Illness ED Provider: HPI Narrative: Patient is diabetic walks with a cane apparently earlier 09:00 patient fell after her knees gave out felt dizzy all day complaining of pain in the left side of the chest after she hit a table patient is ambulatory in the ED without much distress no head injury Related Data Home Medications ?Medication ?Instructions ?Recorded ?Confirmed amlodipine 10 mg tablet 10 mg PO DAILY 02/10/21 04/09/24 aspirin 81 mg tablet,delayed 81 mg PO DAILY 02/10/21 04/09/24 release (Adult Low Dose Aspirin) atorvastatin 80 mg tablet 80 mg PO DAILY 02/10/21 04/09/24 gabapentin 100 mg capsule 100 mg PO DAILY 02/10/21 04/09/24 isosorbide mononitrate 30 mg 30 mg PO QAM 02/10/21 04/09/24 tablet,extended release 24 hr lisinopril 40 mg tablet 40 mg PO DAILY 02/10/21 04/09/24 loratadine 10 mg tablet 10 mg PO DAILY 02/10/21 04/09/24 mecobalamin (vitamin B12) 1,000 1,000 mcg PO DAILY 02/10/21 04/09/24 mcg chewable tablet metformin 500 mg tablet,extended 1,000 mg PO BID 02/10/21 04/09/24 release 24 hr metoprolol succinate 100 mg 100 mg PO DAILY 02/10/21 04/09/24 tablet,extended release 24 hr omeprazole 40 mg capsule,delayed 40 mg PO DAILY 02/10/21 04/09/24 release fluticasone propionate 220 2 puff inhalation BID 06/09/22 04/09/24 mcg/actuation HFA aerosol inhaler (Flovent HFA) Previous Rx's ?Medication ?Instructions ?Recorded acetaminophen 325 mg capsule 650 mg (2 x 325 mg) PO Q6H PRN 01/14/21 pain #20 caps ondansetron 4 mg disintegrating 4 mg PO ONCE PRN nausea and 05/10/21 tablet vomiting #10 tabs dulaglutide 1.5 mg/0.5 mL 1.5 mg (0.5 mL) subcut QWEEK 28 06/16/21 subcutaneous pen injector days #2 mL (Trulicity) insulin degludec 200 unit/mL (3 50 unit (0.25 mL) subcut QPM #9 mL 06/16/21 mL) subcutaneous pen (Tresiba FlexTouch U-200 insulin) lidocaine 5 % topical patch 2 patch topical DAILY #30 ea 03/07/22 (Lidoderm) methylcellulose (laxative) 500 mg 500 mg PO DAILY #90 tabs 06/09/22 tablet (Citrucel) ibuprofen 400 mg tablet 400 mg PO Q6H PRN pain #20 tabs 11/06/22 docusate sodium 100 mg capsule 100 mg PO BEDTIME #90 caps 06/18/23 sennosides 8.6 mg tablet (Natural 17.2 mg (2 x 8.6 mg) PO BEDTIME 06/18/23 Senna Laxative) constipation #180 tabs transport belt #1 ea 08/15/23 meclizine 25 mg tablet 25 mg PO TID PRN dizziness #30 tabs 11/27/23 blood-glucose meter,continuous #1 ea 12/19/23 (FreeStyle Angélica 3 [place]) blood-glucose sensor (FreeStyle #2 ea 12/19/23 Angélica 3 Sensor device) celecoxib 200 mg capsule 200 mg PO BID for pain #60 caps 12/21/23 bolus insulin pump, 200 unit 2 #8 ea 01/08/24 unit bolus insulin patch pump, 200 unit, disposable (CeQur Simplicity) insulin aspart U-100 100 unit/mL See Rx Instructions subcut 01/08/24 subcutaneous solution (Novolog USEASDIRECTD #20 mL U-100 Insulin aspart) insulin lispro 100 unit/mL See Rx Instructions subcut TID 30 01/09/24 subcutaneous solution days #20 mL ibuprofen 600 mg tablet 600 mg PO Q6H #20 tabs 02/07/24 diabetic supplies, miscellan. #1 ea 03/25/24 (CeQur Simplicity Dental Floss Packer) cefuroxime axetil 250 mg tablet 250 mg PO BID 7 days #14 tabs 04/19/24 Allergies Allergy/AdvReac Type Severity Reaction Status Date / Time morphine [MORPHINE] Allergy Intermediate ITCHY, RASH Verified 04/18/24 19:05 oxycodone Allergy Hives Verified 04/18/24 19:05 Review of Systems Review of Systems: Yes all other systems are reviewed and are negative [facility] Past Medical History Medical History Atherosclerotic cardiovascular disease Cardiomyopathy Type 2 diabetes mellitus with diabetic polyneuropathy History of CVA (cerebrovascular accident) Overweight HLD (hyperlipidemia) DM2 (diabetes mellitus, type 2) Asthma Hypertension Depression Myocardial infarction Surgical History Hx of cholecystectomy Hx of section Family History Family History Father No problems noted. Mother No problems noted. Social History Social History Household Members: Significant Other Alcohol intake: never Patient Tobacco Use Status: Former Tobacco user Smoked in Last 30 Days: No Use of substances other than those prescribed or required for medical reasons: No Advance Directives: No Advance Directives Information Provided: No Do you have a plan to hurt others: No Plan Patient : No Current occupational status: disabled Physical Exam Vital Signs: Vital Signs: Last Vital Signs Temp 98.9 F 04/19/24 00:39 Pulse 70 04/19/24 00:39 Resp 12 04/19/24 00:39 BP 126/56 L 04/19/24 00:39 Pulse Ox 96 04/19/24 00:39 O2 Del Method Room Air 04/19/24 00:39 BMI result Body Mass Index 28.0 Appearance: Alert. Oriented X3. No acute distress. Patient is sleepy and lethargic Eyes: PERRLA, No Nystagmus ENT: Pharynx normal. Oral Mucosa moist Neck: Normal inspection. Neck supple. CVS: Normal heart rate and rhythm. Pulses normal. Respiratory: No respiratory distress. Equal air entry bilateral, no wheezing/rales/rhonchi mild tenderness left lower ribs Abdomen: Soft and nontender. Bowel sounds are present, no mass palpable, no CVA tenderness Skin: Skin warm and dry. Normal skin color. Normal skin turgor. Extremities: No lower extremity edema. No calf tenderness Neuro: Oriented X 3. No motor deficit. No sensory deficit.No cerebellar signs , cranial nerves II-XII intact Medications Administered Discontinued Medications Generic Name Dose Route Start Last Admin Trade Name Deborah PRN Reason Stop Dose Admin Cefuroxime Axetil 500 mg 04/18/24 22:43 04/18/24 22:52 Cefuroxime Axetil 500 Mg Tablet PO 04/18/24 22:44 500 mg ONCE ONE Administration Medical Decision Making Medical Decision Making [facility] Narrative: Patient with weakness diabetes showed uncomplicated UTI will give cefuroxime patient is feeling much better at this time will discharge patient home Differential Diagnosis Differential Diagnoses: The differential diagnosis associated with the presentation includes Lab Data [facility] Lab Attestation statement: I reviewed the patient's lab results. 04/18/24 22:50 04/18/24 22:50 Labs: Lab Results 04/18/24 04/18/24 Range/Units 22:25 22:50 WBC 8.1 (4.8-10.8) X10*3/uL RBC 4.57 (4.20-5.50) X10*6/uL Hgb 12.6 (12.0-16.0) g/dl Hct 37.2 (37.0-47.0) % MCV 81.4 (80.0-98.0) fL MCH 27.6 (27.0-33.0) pg MCHC 33.9 (31.0-35.0) g/dl RDW 12.8 (11.0-16.0) % Plt Count 291 (160-400) X10*3/uL MPV 10.1 (9.4-12.3) fL Immature Gran % (Auto) 0.2 (0.0-0.4) % Neut % (Auto) 49.6 (45-73) % Lymph % (Auto) 40.2 H (20-40) % [place] % (Auto) 7.4 (2-11) % Eos % (Auto) 2.2 (0-4) % Baso % (Auto) 0.4 (0-2) % Lymph # (Auto) 3.2 (1.2-4.9) X10*3/uL [place] # (Auto) 0.6 (0.1-1.2) X10*3/uL Eos # (Auto) 0.2 (0.0-0.4) X10*3/uL Baso # (Auto) 0.0 (0.0-0.2) X10*3/uL Abs Immat Gran (auto) 0.02 (0.00-0.03) X10*3/uL Absolute Neuts (auto) 4.0 (2.0-8.3) x10*3/uL Absolute Nucleated RBC 0.000 (0.0-0.012) X10*3/uL Nucleated RBC % (auto) 0.0 (0.0-0.2) /100WBC Sodium 137 (135-145) mmol/L Potassium 4.1 (3.3-5.1) mmol/L Chloride 104 (96-108) mmol/L Carbon Dioxide 26 (22-29) mmol/L Anion Gap 11 L (12-20) BUN 13 (9-16) mg/dL Creatinine 0.64 (0.5-1.4) mg/dL Estim Creat Clear Calc 92.0 Estimated GFR > 60 Random Glucose 282 H (60-115) mg/dL Calcium 9.6 (8.4-10.2) mg/dL Total Bilirubin 1.7 H (0.0-1.0) mg/dL AST 17 (5-31) U/L ALT 18 (0-31) U/L Alkaline Phosphatase 87 (39-117) U/L Total Protein 6.8 (6.5-8.0) g/dL Albumin 3.8 (3.5-5.0) g/dL Urine Color Yellow Urine Appearance Clear Urine pH 5.5 (5.0-9.0) Ur Specific [place] >= 1.030 H (1.005-1.025) Urine Protein Trace (Neg-Trace) mg/dL Urine Glucose (UA) >=1000 H (Negative) mg/dL Urine Ketones Trace (Negative) mg/dL Urine Blood Negative (Negative) Urine Nitrite Negative (Negative) Ur Leukocyte Esterase Small (1+) H (Negative) Urine RBC 0-2 (0-2) /HPF Urine WBC >50 H (0-5) /HPF Ur Squamous Epith Cells 6-10 (0-2) /HPF Urine Bacteria 4+ (None Seen) Hyaline Casts 3-5 (0-2) /LPF Discharge Plan Discharge Clinical Impression: Weakness, UTI (urinary tract infection) Patient Disposition: Home, Self-Care Instructions: Urinary Tract Infection in Women (ED), Weakness (ED) Additional Instructions: Drink plenty of fluids Take antibiotic as prescribed for urinary tract infect Follow with your PCP Prescriptions: New cefuroxime axetil 250 mg tablet 250 mg PO BID 7 Days Qty: 14 0RF No Action Trulicity 1.5 mg/0.5 mL pen injector 1.5 mg subcut QWEEK 28 Days Qty: 2 6RF sennosides [Natural Senna Laxative] 8.6 mg tablet 17.2 mg PO BEDTIME Qty: 180 3RF docusate sodium 100 mg capsule 100 mg PO BEDTIME Qty: 90 3RF celecoxib 200 mg capsule 200 mg PO BID Qty: 60 3RF (DME) CeQur Simplicity 2 unit device See Rx Instructions .Route Qty: 8 11RF Rx Instructions: As directed every 4 days 5 clicks breakfast, 5 clicks lunch and 6 clicks supper Total of 32 units insulin aspart U-100 [Novolog U-100 Insulin aspart] 100 unit/mL solution See Rx Instructions subcut USEASDIRECTD Qty: 20 11RF Rx Instructions: 10 units for breakfast (5 clicks on cequr), 10 units for lunch (five clicks on cequr) 12 units for supper (6 clicks) subcutaneously use as directed; insulin lispro 100 unit/mL solution See Rx Instructions subcut TID MDD 32 units 30 Days Qty: 20 3RF Rx Instructions: 10 units with breakfast (5 clicks on Cequr), 10 units for lunch (5 clicks on cequr) and 12 units for supper (6 clicks on cequr) subcutaneously 3 times a day; may require up to 40 units daily to fill device (DME) CeQur Simplicity Dental Floss Packer Misc See Rx Instructions .Route Qty: 1 1RF Rx Instructions: As directed acetaminophen 325 mg capsule 650 mg PO Q6H PRN (Reason: pain) Qty: 20 0RF ondansetron 4 mg tablet,disintegrating 4 mg PO ONCE PRN (Reason: nausea and vomiting) Qty: 10 0RF lidocaine [Lidoderm] 5 % adhesive patch,medicated 2 patch topical DAILY Qty: 30 0RF Rx Instructions: leave on most painful area for up to 12 hrs ibuprofen 600 mg tablet 600 mg PO Q6H Qty: 20 0RF ibuprofen 400 mg tablet 400 mg PO Q6H PRN (Reason: pain) Qty: 20 0RF meclizine 25 mg tablet 25 mg PO TID PRN (Reason: dizziness) Qty: 30 0RF metoprolol succinate 100 mg tablet extended release 24 hr 100 mg PO DAILY atorvastatin 80 mg tablet 80 mg PO DAILY mecobalamin (vitamin B12) 1,000 mcg tablet,chewable 1,000 mcg PO DAILY isosorbide mononitrate 30 mg tablet extended release 24 hr 30 mg PO QAM lisinopril 40 mg tablet 40 mg PO DAILY loratadine 10 mg tablet 10 mg PO DAILY aspirin [Adult Low Dose Aspirin] 81 mg tablet,delayed release (DR/EC) 81 mg PO DAILY omeprazole 40 mg capsule,delayed release(DR/EC) 40 mg PO DAILY metformin 500 mg tablet extended release 24 hr 1,000 mg PO BID gabapentin 100 mg capsule 100 mg PO DAILY amlodipine 10 mg tablet 10 mg PO DAILY fluticasone propionate [Flovent HFA] 220 mcg/actuation HFA aerosol inhaler 2 puff inhalation BID Citrucel 500 mg tablet 500 mg PO DAILY Qty: 90 2RF Rx Instructions: take it with full glass of water Tresiba FlexTouch U-200 200 unit/mL (3 mL) insulin pen 50 unit subcut QPM Qty: 9 6RF (DME) transport belt See Rx Instructions .Route .MEDSUPPLY Qty: 1 0RF Rx Instructions: As directed (DME) FreeStyle Angélica 3 [place] Misc See Rx Instructions .ROUTE .MEDSUPPLY Qty: 1 0RF Rx Instructions: As directed (DME) FreeStyle Angélica 3 Sensor Device See Rx Instructions .ROUTE .MEDSUPPLY Qty: 2 11RF Rx Instructions: As directed Interventions: ED Discharge Assessment Last Done: 04/19/24 00:39 Discharge Date/Time: 04/19/24 00:54 Print Language: Italian
[2024-04-18 22:00] VITALS: BP 139/57; PULSE 67; RESP 14; TEMP 37; O2SAT 94
[2024-04-18 22:31] LABS: Appearance Urine Clear; Color Urine Yellow; Glucose Urine UA >=1000 mg/dL (Negative); Leukocyte Esterase Urine Small (1+) (Negative); Nitrite Urine Negative (Negative); PH 5.5 (5.0-9.0); Specific Gravity - Urine >= 1.030 (1.005-1.025); UMIC TRIGGER UACC YES; Urine Blood Negative (Negative); Urine Ketones Trace mg/dL (Negative); Urine Protein Trace mg/dL (Neg-Trace)
[2024-04-18 22:36] LABS: Bacteria Urine 4+ (None Seen); RBC Urine 0-2 /HPF (0-2); UACC Culture Trigger YES; WBC Urine >50 /HPF (0-5)
--- NOTE | 2024-04-18 22:42 | PC.NURSE ---
Patient ambulated with slow and steady gait to the bathroom with assist of cane and back again with min assist in and out of bed.
[2024-04-18] MEDS: cefuroxime axetiL 500 MG TABLET PO (22:52)
[2024-04-18 22:56] LABS: MANUAL DIFF FLAG NO
[2024-04-18 22:57] LABS: Basophils Percent Auto 0.4 % (0-2); Eosinophils Absolute Auto 0.2 X10*3/uL (0.0-0.4); Eosinophils Percent Auto 2.2 % (0-4); Hematocrit 37.2 % (37.0-47.0); Hemoglobin 12.6 g/dl (12.0-16.0); Imm Gran Abs Auto 0.02 X10*3/uL (0.00-0.03); Imm Gran Pct Auto 0.2 % (0.0-0.4); Lymphocytes Absolute Auto 3.2 X10*3/uL (1.2-4.9); Lymphocytes Percent Auto 40.2 % (20-40); Mean Corpuscular HGB Conc 33.9 g/dl (31.0-35.0); Mean Corpuscular Hemoglobin 27.6 pg (27.0-33.0); Mean Corpuscular Volume 81.4 fL (80.0-98.0); Mean Platelet Volume 10.1 fL (9.4-12.3); Monocytes Absolute Auto 0.6 X10*3/uL (0.1-1.2); Monocytes Percent Auto 7.4 % (2-11); Neutrophils Percent Auto 49.6 % (45-73); Platelet Count 291 X10*3/uL (160-400); Red Blood Count 4.57 X10*6/uL (4.20-5.50); Red Cell Distribution Width 12.8 % (11.0-16.0); White Blood Count 8.1 X10*3/uL (4.8-10.8)
[2024-04-18 23:11] LABS: Alanine Aminotransferase 18 U/L (0-31); Albumin Level 3.8 g/dL (3.5-5.0); Alkaline Phosphatase 87 U/L (39-117); Anion Gap 11 (12-20); Aspartate Amino Transferase 17 U/L (5-31); Bilirubin Total 1.7 mg/dL (0.0-1.0); Blood Urea Nitrogen 13 mg/dL (9-16); Calcium 9.6 mg/dL (8.4-10.2); Carbon Dioxide 26 mmol/L (22-29); Chloride 104 mmol/L (96-108); Estimated Glomerular Filt Rate > 60; Glucose Random 282 mg/dL (60-115); Potassium 4.1 mmol/L (3.3-5.1); Sodium 137 mmol/L (135-145); Total Protein 6.8 g/dL (6.5-8.0)
[2024-04-19 00:28] VITALS: BP 126/56; PULSE 70; RESP 12; TEMP 37.2; O2SAT 96
[2024-04-19 00:39] VITALS: BP 126/56; PULSE 70; RESP 12; TEMP 37.2; O2SAT 96
== END 2024-04-19 00:54 | disposition home or self-care (01) ==
PROVIDERS: Emergency Provider Internal Medicine; PCP Internal Medicine
DX: N39.0 Urinary tract infection, site not specified (principal); R53.1 Weakness; E11.9 Type 2 diabetes mellitus without complications; I10 Essential (primary) hypertension; E78.5 Hyperlipidemia, unspecified; I25.2 Old myocardial infarction; J45.909 Unspecified asthma, uncomplicated; Z86.73 Personal history of transient ischemic attack (TIA), and cerebral infarction without residual deficits; Z79.82 Long term (current) use of aspirin; Z79.02 Long term (current) use of antithrombotics/antiplatelets; Z79.899 Other long term (current) drug therapy; Z79.85 Long-term (current) use of injectable non-insulin antidiabetic drugs; Z79.4 Long term (current) use of insulin; Z87.891 Personal history of nicotine dependence
CPT/HCPCS: 36415; 71101; 80053; 81001; 85025; 87086; 87147; 99283; 99284

== ENCOUNTER 2024-05-09 09:12 | Outpatient (REF) | payer MEDICAID, SELFPAY | END 2024-05-09 09:13 | disposition home or self-care (01) | LOC: HO.US 09:12 | PROVIDERS: PCP Registered Nurse; Visit Provider Nurse Practitioner Family | DX: R39.89 Other symptoms and signs involving the genitourinary system (principal); K80.20 Calculus of gallbladder without cholecystitis without obstruction | CPT/HCPCS: 76705; 76770 ==

== ENCOUNTER → 2024-05-09 09:17 | Outpatient (BNV) | payer MEDICAID, SELFPAY | PROVIDERS: PCP Registered Nurse; Visit Provider Radiology Diagnostic Radiology | DX: K80.20 Calculus of gallbladder without cholecystitis without obstruction (principal); R39.89 Other symptoms and signs involving the genitourinary system | CPT/HCPCS: 76705; 76770 ==

== ENCOUNTER 2024-05-28 08:56 | Outpatient (AMB) | payer MEDICAID, SELFPAY ==
--- NOTE | 2024-05-28 08:56 | A.OFFVIS_ITS ---
Intake Visit Reasons: 3 month follow up/ US(set) Allergies morphine [MORPHINE] Allergy (Intermediate, Verified 05/28/24 08:58) ITCHY, RASH oxycodone Allergy (Verified 05/28/24 08:58) Hives Medication List - Last Reconciled 05/28/24 by GIFTY Lyons acetaminophen 650 mg (2 x 325 mg) PO Q6H PRN amlodipine 10 mg PO DAILY aspirin (Adult Low Dose Aspirin) 81 mg PO DAILY atorvastatin 80 mg PO DAILY blood-glucose meter,continuous (FreeStyle Angélica 3 [place]) As directed blood-glucose sensor (FreeStyle Angélica 3 Sensor device) As directed bolus insulin pump, 200 unit (CeQur Simplicity) As directed every 4 days 5 clicks breakfast, 5 clicks lunch and 6 clicks supper Total of 32 units celecoxib 200 mg PO BID PRN diabetic supplies, miscellan. (CeQur Simplicity [employer] Geography Teacher) As directed docusate sodium 100 mg PO BEDTIME dulaglutide (Trulicity) 1.5 mg (0.5 mL) subcut QWEEK 28 days estradiol 0.01%(0.1mg/gram) (Estrace) 1 g vaginal 3XW 90 days fluticasone propionate 220 mcg/actuation (Flovent HFA) 2 puffs inhalation BID gabapentin 100 mg PO DAILY ibuprofen 400 mg PO Q6H PRN ibuprofen 600 mg PO Q6H insulin aspart U-100 (Novolog U-100 Insulin aspart) 10 units for breakfast (5 clicks on cequr), 10 units for lunch (five clicks on cequr) 12 units for supper (6 clicks) subcutaneously use as directed; insulin degludec (Tresiba FlexTouch U-200 insulin) 50 units (0.25 mL) subcut QPM insulin lispro 10 units with breakfast (5 clicks on Cequr), 10 units for lunch (5 clicks on cequr) and 12 units for supper (6 clicks on cequr) subcutaneously 3 times a day; may require up to 40 units daily to fill device 30 days MDD 32 units isosorbide mononitrate ER 30 mg PO QAM lidocaine 5% (Lidoderm) 2 patches topical DAILY lisinopril 40 mg PO DAILY loratadine 10 mg PO DAILY meclizine 25 mg PO TID PRN mecobalamin (vitamin B12) 1,000 mcg PO DAILY metformin ER 1,000 mg PO BID methylcellulose (laxative) (Citrucel) 500 mg PO DAILY metoprolol succinate ER 100 mg PO DAILY omeprazole 40 mg PO DAILY ondansetron 4 mg PO ONCE PRN sennosides (Natural Senna Laxative) 17.2 mg (2 x 8.6 mg) PO BEDTIME [transport belt As directed] HPI Comments Details: Manas gonzales a very pleasant 58-year-old Upper Sorbian-speaking female patient of Dr. Butler was accompanied by her niece at today's office visit. She has a past medical history of ACD, cardiomyopathy, type 2 diabetes, history of a CVA, overweight, hyperlipidemia, asthma, hypertension, depression, and VA. She is being followed up on today via telehealth. 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 06/07 bilateral kidneys are normal in size, contour, and echogenicity. No renal calculi, lesions, and or hydronephrosis noted bilaterally. Bladder partially distended no wall thickening or masses noted. Pre void bladder volume is approximately 90 mL. Postvoid bladder volume is approximately 5 mL. In discussion with the patient and her PAPER FOLDING MACHINE OPERATOR worker today she reports having followed up in the ER approximately 1 month ago after a fall at which time she was diagnosed with a urinary tract infection. She reports having completed antibiotic therapy as prescribed. In review of patient's chart it appears urine culture 05/06 Strep agalactiae (Grp B). She currently denies any UTI like symptoms. She denies any issues with constipation. We discussed at length potential causes of lower urinary tract symptoms and urinary tract infections. We discussed relation of uncontrolled diabetes with lower urinary tract symptoms. In review of patient's chart it appears last A1c 01/04 9.9. She discusses her upcoming appointment with endocrinology as she has been having increased blood sugars despite current management. She otherwise denies incontinence, nocturia, hematuria, foul smelling urine, changes to urinary stream, flank pain, fever, and or chills. [facility] Medical History Atherosclerotic cardiovascular disease Cardiomyopathy Type 2 diabetes mellitus with diabetic polyneuropathy History of CVA (cerebrovascular accident) Overweight HLD (hyperlipidemia) DM2 (diabetes mellitus, type 2) Asthma Hypertension Depression Myocardial infarction Surgical History Hx of cholecystectomy Hx of section Family History Father No problems noted. Mother No problems noted. Social History Household Members: Significant Other Alcohol intake: never Patient Tobacco Use Status: Former Tobacco user Current occupational status: disabled Review of Systems Eyes Reports no additional complaints ENT Reports no additional complaints Card Reports as per HPI Resp Reports as per HPI GI Reports as per HPI Reports as per HPI Musc Reports as per HPI Neuro Reports as per HPI Psych Reports as per HPI Endo Reports as per HPI [place]/Lymph Reports no additional complaints Aller/Immun Reports no additional complaints Physical Exam Const General: cooperative Resp Effort & Inspection: able to speak in complete sentences Psych Attitude: cooperative Insight: Fair insight present (Psych) Judgement: Fair judgement present (Psych) Telehealth Telehealth Telehealth Platform: TweetUp Location of provider rendering services: practice address Location of patient: address on file Patient Identification confirmed using: Name, : Yes Telehealth method: voice only Patient verbally consented to treatment: Yes Patient verbally consented to billing insurance company: Yes Patient informed of any privacy concerns related to visit: Yes Minutes spent on Phone/Video with Pt.: 20 Results Reviewed Results Reviewed: Date of Service: 05/09/24 EXAMINATION: US RETROPERITONEAL COMPLETE (RENAL) FINDINGS: RIGHT KIDNEY: 12.1 x 4.1 x 5.7 cm (SAG x AP x TRV). The kidney is normal in size, contour, and echogenicity. Renal cortical thickness is normal. No calculi or focal parenchymal lesions. No hydronephrosis. LEFT KIDNEY: 11.2 x 4.9 x 5.8 cm (SAG x AP x TRV). The kidney is normal in size, contour, and echogenicity. Renal cortical thickness is normal. No calculi or focal parenchymal lesions. No hydronephrosis. BLADDER: Partially distended. Bilateral ureteral jets are demonstrated. No wall thickening or masses. Prevoid bladder volume is 90.1 mL. Postvoid bladder volume is 5.0 mL. IMPRESSION: Normal retroperitoneal ultrasound. Assessment & Plan Assessment & Plan (1) Bladder pain: Code(s): R39.89 - Other symptoms and signs involving the genitourinary system Category: Medical (2) Sensation of pressure in bladder area: Code(s): R39.89 - Other symptoms and signs involving the genitourinary system Category: Medical (3) UTI (urinary tract infection): Code(s): N39.0 - Urinary tract infection, site not specified Category: Medical Plan Recent retroperitoneal ultrasound results reviewed with the patient and her PAPER FOLDING MACHINE OPERATOR worker today; as noted above. Start Estrace cream as discussed and prescribed. We discussed at length potential causes of lower urinary tract symptoms and urinary tract infections. Discussed, educated, and stressed the importance of adequate hydration relation to lower urinary tract symptoms as well as overall health and well-being. We discussed importance of management and diabetes for improvement in lower urinary tract symptoms as well as overall health and well-being. Patient currently denies any UTI like symptoms. She reports be happy with current voiding parameters. Follow-up in 3 months with [facility]; or sooner with any issues, concerns, and or questions. Medications: New estradiol 0.01%(0.1mg/gram) (Estrace) pea-sized amount to urethrae daily times one month and then three times a week thereafter 1 g vaginal 3XW 42.5 grams 3RF 90 days Discontinued cefuroxime axetil Discontinued Reason: Patient Completed Course 250 mg PO BID 7 days 14 tabs 0RF Patient Instructions: The patient had an opportunity to ask questions regarding the treatment plan. All questions were answered. Physical exam, labs, and imaging were discussed and reviewed in detail. As well as risks, benefits, and discussion of treatment choices. No major barriers to understanding were identified. The patient expressed understanding and agreement with the above treatment plan. The patient was made aware they should contact our office by phone for worsening of their current condition, the appearance of new symptoms, or with any questions or concerns. Compliance is encouraged with any medications and follow up testing that is ordered. It is a privilege to be allowed the opportunity to participate in? your urological care.? Again, if you have any questions or conc erns If you have any questions or concerns please do not hesitate to contact me. The office is [phone]. This note is constructed using voice recognition software. While every effort has been made to ensure accuracy parachute rigger errors may have been included. Yours sincerely, GIFTY Lyons Coding Level of Care Code Tele Est Pt Level 4 (41817) Diagnoses Bladder pain R39.89 Sensation of pressure in bladder area R39.89 UTI (urinary tract infection) N39.0
== END 2024-05-28 09:02 | disposition home or self-care (01) ==
LOC: HO.HUSH 08:56
PROVIDERS: PCP Registered Nurse; Visit Provider Nurse Practitioner Family
DX: R39.89 Other symptoms and signs involving the genitourinary system (principal); N39.0 Urinary tract infection, site not specified
CPT/HCPCS: 99214

== ENCOUNTER 2024-07-11 20:37 | Inpatient (IN) | payer MEDICAID, SELFPAY ==
--- NOTE | 2024-07-11 | ECG_ITS ---
Test Reason : FALLS Blood Pressure : */* mmHG Vent. Rate : 120 BPM Atrial Rate : * BPM P-R Int : * ms QRS Dur : 88 ms QT Int : 410 ms P-R-T Axes : * 23 67 degrees QTcB Int : 579 ms sinus tahycardia Nonspecific ST and T wave abnormality Prolonged QT Abnormal ECG When compared with ECG of 18-Mar-2024 15:26, Vent. rate has increased by 51 bpm Criteria for Anterior infarct are no longer Present ST now depressed in Lateral leads Nonspecific T wave abnormality now evident in Lateral leads Referred By: Generic ED Physician Electronically Signed By: Fabio Andrade
--- NOTE | ~2024-07-11 | XR_ITS ---
CLINICAL HISTORY: chest pain 1 view chest x-ray Comparison: 10/02/2023, 01/14/2021 Findings: Portions of the exam are obscured by overlying material. The lungs are clear. Normal size heart. No acute fracture. IMPRESSION: 1. No acute findings. This document has been electronically signed by: Hany White MD on 07/11/2024 22:16:33
--- NOTE | ~2024-07-11 | CT_ITS ---
CLINICAL HISTORY: hypoxia, SOB CT angiography chest with contrast. 3D Postprocessing. Comparison: CT/ND/SR - CT CHEST WO IV CON - 03/18/24 19:33 EST Findings: Motion artifact limits evaluation of some of the subsegmental pulmonary arteries in the lower lungs. There is otherwise no evidence of a pulmonary embolism. There is mild cardiomegaly. Thoracic aorta is normal in diameter without dissection. There are no enlarged lymph nodes. There is subsegmental bibasilar atelectasis. Lungs appear otherwise clear allowing for limitation of motion artifact. Trachea and central bronchi are widely patent. There are chronic left rib fractures. There is no acute fracture or suspicious lytic or sclerotic lesion. Limited images of the upper abdomen demonstrate no acute findings. IMPRESSION: Motion artifact limits evaluation of some of the subsegmental pulmonary arteries. Otherwise no evidence of a pulmonary embolism. This document has been electronically signed by: Reza Blanchard MD on 07/12/2024 02:30:06
--- NOTE | ~2024-07-11 | CT_ITS ---
CLINICAL HISTORY: trauma CT cervical spine without contrast Comparison: 03/18/2024 Findings: No acute fracture or dislocation is demonstrated. Posterior alignment is normal throughout. No significant degenerative change noted. No radiopaque foreign bodies noted. Impression: No acute processes This document has been electronically signed by: John Santos MD on 07/12/2024 00:16:58
--- NOTE | ~2024-07-11 | CT_ITS ---
CLINICAL HISTORY: trauma CT head without contrast Comparison: 03/18/2024 Findings: No intracranial mass, midline shift, hydrocephalus, or acute hemorrhage. No acute process in sinuses or mastoids. No acute bony abnormality. Impression: No acute intracranial process This document has been electronically signed by: John Santos MD on 07/12/2024 00:15:14
[2024-07-11 20:49] VITALS: BP 180/116; PULSE 121; O2SAT 93
[2024-07-11 21:19] LABS: Glucose, Whole Blood 495 mg/dL (60-115)
[2024-07-11 21:29] VITALS: BP 156/71; PULSE 120; RESP 24; TEMP 36.8; O2SAT 91; BMI 24.0
[2024-07-11 21:51] LABS: MANUAL DIFF FLAG NO
[2024-07-11 21:52] LABS: Basophils Percent Auto 0.4 % (0-2); Eosinophils Absolute Auto 0.1 X10*3/uL (0.0-0.4); Hematocrit 44.1 % (37.0-47.0); Hemoglobin 15.1 g/dl (12.0-16.0); Imm Gran Abs Auto 0.03 X10*3/uL (0.00-0.03); Imm Gran Pct Auto 0.3 % (0.0-0.4); Lymphocytes Absolute Auto 0.5 X10*3/uL (1.2-4.9); Lymphocytes Percent Auto 4.9 % (20-40); Mean Corpuscular HGB Conc 34.2 g/dl (31.0-35.0); Mean Corpuscular Hemoglobin 27.3 pg (27.0-33.0); Mean Corpuscular Volume 79.7 fL (80.0-98.0); Mean Platelet Volume 10.3 fL (9.4-12.3); Monocytes Absolute Auto 0.4 X10*3/uL (0.1-1.2); Monocytes Percent Auto 3.9 % (2-11); Neutrophils Absolute Auto 8.4 x10*3/uL (2.0-8.3); Neutrophils Percent Auto 89.5 % (45-73); Platelet Count 271 X10*3/uL (160-400); Red Blood Count 5.53 X10*6/uL (4.20-5.50); Red Cell Distribution Width 12.5 % (11.0-16.0); White Blood Count 9.4 X10*3/uL (4.8-10.8)
[2024-07-11 21:53] LABS: Appearance Urine Clear; Color Urine Yellow; Glucose Urine UA >=1000 mg/dL (Negative); Leukocyte Esterase Urine Negative (Negative); Nitrite Urine Negative (Negative); PH 5.5 (5.0-9.0); Specific Gravity - Urine >= 1.030 (1.005-1.025); UMIC TRIGGER UACC YES; Urine Blood Trace (Negative); Urine Ketones >=160 mg/dL (Negative); Urine Protein 30 (1+) mg/dL (Neg-Trace)
[2024-07-11 21:58] VITALS: BP 160/64; PULSE 121; RESP 23; O2SAT 96
[2024-07-11 21:58] LABS: Bacteria Urine None Seen (None Seen); Hyaline Casts Urine 0-2 /LPF (0-2); RBC Urine 0-2 /HPF (0-2); Squamous Epithelial Cell Urine 0-2 /HPF (0-2); WBC Urine 0-5 /HPF (0-5)
[2024-07-11 22:03] LABS: Amphetamine Screen Urine Not Detected (Not Detect); Barbiturates, Urine Not Detected (Not Detect); Benzodiazepines Screen Urine Not Detected (Not Detect); Buprenorphine Scr Not Detected (Not Detect); Cannabinoid Screen Urine Not Detected (Not Detect); Cocaine Screen Urine Not Detected (Not Detect); Fentanyl, urine Not Detected (Not Detect); Methadone Screen, Urine Not Detected (Not Detect); Opiate Screen Urine Not Detected (Not Detect); Oxycodone Screen Urine Not Detected (Not Detect); Phencyclidine Screen Urine Not Detected (Not Detect)
[2024-07-11 22:12] LABS: Alanine Aminotransferase 14 U/L (0-31); Albumin Level 4.1 g/dL (3.5-5.0); Alkaline Phosphatase 105 U/L (39-117); Anion Gap 20 (12-20); Aspartate Amino Transferase 16 U/L (5-31); Bilirubin Total 1.2 mg/dL (0.0-1.0); Blood Urea Nitrogen 12 mg/dL (9-16); Calcium 9.6 mg/dL (8.4-10.2); Carbon Dioxide 19 mmol/L (22-29); Chloride 95 mmol/L (96-108); Creatinine Clr Calc Pharmacy 68.7; Estimated Glomerular Filt Rate > 60; Glucose Random 497 mg/dL (60-115); Potassium 4.4 mmol/L (3.3-5.1); Sodium 130 mmol/L (135-145); Total Protein 8.2 g/dL (6.5-8.0)
[2024-07-11 22:16] LABS: Troponin-I High Sensitivity 22.2 ng/L (<3.5-17.0)
[2024-07-11 22:23] LABS: Lactic Acid 2.6 mmol/L (0.5-2.0)
[2024-07-11 22:29] LABS: Influenza A PCR POSITIVE (Negative); Influenza B PCR NEGATIVE (Negative); Resp Syncy Virus RNA Qual PCR NEGATIVE (Negative); SARS COV2 PCR INHOUSE NEGATIVE (Negative)
[2024-07-11] MEDS: Ketorolac Tromethamine 15 MG/ML VIAL IVPUSH (22:48)
[2024-07-11] MEDS: ondansetron HCL 4 MG/2 ML VIAL IVPUSH (22:48)
[2024-07-11] MEDS: Lactated Ringers 1,000 ML 999 ML IV (22:48)
[2024-07-11 23:10] VITALS: BP 172/70; PULSE 123; RESP 20; TEMP 37.5; O2SAT 95
[2024-07-11 23:49] LABS: Reflex Lactate? Lactic Acid Added
[2024-07-12] VITALS (12 sets, daily range): BP systolic 123–176; BP diastolic 59–83; PULSE 83–120; RESP 16–24; TEMP 36.6–38.6; O2SAT 92–96; BMI 26.7
--- NOTE | 2024-07-12 | ED.GENADULT ---
HPI - General Adult General Chief complaint: Fall Stated complaint: fall, hyperglycemic Time Seen by Provider: 07/11/24 22:27 Source: patient Limitations: language barrier History of Present Illness ED Provider: Franci Ramos PA-C HPI narrative: 58-year-old female with a history of hyperlipidemia hypertension, diabetes, morbid obesity, arthritis, cardiomyopathy, coronary artery disease, presents with weakness. Patient states she has been feeling unwell at home today, with the extreme weakness. She states she sustained for falls secondary to her weakness. Patient states she did strike her head during 1 of the falls, there was no loss of consciousness. Patient currently complains of neck pain, she refused a C-collar per your arrival. Associated chest pain that she states is from her ?asthma?, and subjective fevers at home. Patient also states that she forgot to take her insulin today. No nausea, vomiting or diarrhea. Related Data Home Medications ?Medication ?Instructions ?Recorded ?Confirmed amlodipine 10 mg tablet 10 mg PO DAILY 02/10/21 05/28/24 aspirin 81 mg tablet,delayed 81 mg PO DAILY 02/10/21 05/28/24 release (Adult Low Dose Aspirin) atorvastatin 80 mg tablet 80 mg PO DAILY 02/10/21 05/28/24 gabapentin 100 mg capsule 100 mg PO DAILY 02/10/21 05/28/24 isosorbide mononitrate 30 mg 30 mg PO QAM 02/10/21 05/28/24 tablet,extended release 24 hr lisinopril 40 mg tablet 40 mg PO DAILY 02/10/21 05/28/24 loratadine 10 mg tablet 10 mg PO DAILY 02/10/21 05/28/24 mecobalamin (vitamin B12) 1,000 1,000 mcg PO DAILY 02/10/21 05/28/24 mcg chewable tablet metformin 500 mg tablet,extended 1,000 mg PO BID 02/10/21 05/28/24 release 24 hr metoprolol succinate 100 mg 100 mg PO DAILY 02/10/21 05/28/24 tablet,extended release 24 hr omeprazole 40 mg capsule,delayed 40 mg PO DAILY 02/10/21 05/28/24 release fluticasone propionate 220 2 puff inhalation BID 06/09/22 05/28/24 mcg/actuation HFA aerosol inhaler (Flovent HFA) Previous Rx's ?Medication ?Instructions ?Recorded acetaminophen 325 mg capsule 650 mg (2 x 325 mg) PO Q6H PRN 01/14/21 pain #20 caps ondansetron 4 mg disintegrating 4 mg PO ONCE PRN nausea and 05/10/21 tablet vomiting #10 tabs dulaglutide 1.5 mg/0.5 mL 1.5 mg (0.5 mL) subcut QWEEK 28 06/16/21 subcutaneous pen injector days #2 mL (Trulicity) insulin degludec 200 unit/mL (3 50 unit (0.25 mL) subcut QPM #9 mL 06/16/21 mL) subcutaneous pen (Tresiba FlexTouch U-200 insulin) lidocaine 5 % topical patch 2 patch topical DAILY #30 ea 03/07/22 (Lidoderm) methylcellulose (laxative) 500 mg 500 mg PO DAILY #90 tabs 06/09/22 tablet (Citrucel) ibuprofen 400 mg tablet 400 mg PO Q6H PRN pain #20 tabs 11/06/22 sennosides 8.6 mg tablet (Natural 17.2 mg (2 x 8.6 mg) PO BEDTIME 06/18/23 Senna Laxative) constipation #180 tabs transport belt #1 ea 08/15/23 meclizine 25 mg tablet 25 mg PO TID PRN dizziness #30 tabs 11/27/23 blood-glucose meter,continuous #1 ea 12/19/23 (FreeStyle Angélica 3 Minong) blood-glucose sensor (FreeStyle #2 ea 12/19/23 Angélica 3 Sensor device) bolus insulin pump, 200 unit 2 #8 ea 01/08/24 unit bolus insulin patch pump, 200 unit, disposable (CeQur Simplicity) insulin aspart U-100 100 unit/mL See Rx Instructions subcut 01/08/24 subcutaneous solution (Novolog USEASDIRECTD #20 mL U-100 Insulin aspart) insulin lispro 100 unit/mL See Rx Instructions subcut TID 30 01/09/24 subcutaneous solution days #20 mL ibuprofen 600 mg tablet 600 mg PO Q6H #20 tabs 02/07/24 diabetic supplies, miscellan. #1 ea 03/25/24 (Ce[employer]ur Simplicity [employer]) celecoxib 200 mg capsule 200 mg PO BID PRN for pain #60 caps 04/23/24 estradiol 0.01% (0.1 mg/gram) 1 g vaginal 3XW 90 days #42.5 grams 05/28/24 vaginal cream (Estrace) docusate sodium 100 mg capsule 100 mg PO BEDTIME #90 caps 06/23/24 Allergies Allergy/AdvReac Type Severity Reaction Status Date / Time morphine [MORPHINE] Allergy Intermediate ITCHY, RASH Verified 07/11/24 21:30 oxycodone Allergy Hives Verified 07/11/24 21:30 Review of Systems Review of Systems: Yes all other systems are reviewed and are negative Constitutional: Constitutional: Reports fatigue, Reports fever(s), Denies headache(s) and Reports malaise ENT: Denies dizziness, Denies headache(s) and Reports neck pain Cardiovascular: Cardiovascular: Reports chest pain and Denies dyspnea Respiratory: Respiratory: Denies cough, Denies dyspnea and Denies wheezing Gastrointestinal: Gastrointestinal: Denies abdominal pain, Denies diarrhea, Denies nausea and Denies vomiting Musculoskeletal: Musculoskeletal: Reports neck pain Neurologic: Denies dizziness and Denies headache(s) Endocrine: Endocrine: Reports fatigue Allergic/Immunologic: Allergic/Immunologic: Denies wheezing PMFSH Past Medical History Attestation statement: The following information was validated with the patient. Medical History Atherosclerotic cardiovascular disease Cardiomyopathy Type 2 diabetes mellitus with diabetic polyneuropathy History of CVA (cerebrovascular accident) Overweight HLD (hyperlipidemia) DM2 (diabetes mellitus, type 2) Asthma Hypertension Depression Myocardial infarction Surgical History Hx of cholecystectomy Hx of section Family History Family History Father No problems noted. Mother No problems noted. Social History Social History Household Members: Significant Other Alcohol intake: never Patient Tobacco Use Status: Former Tobacco user Advance Directives: No Advance Directives Information Provided: No Current occupational status: disabled Physical Exam ED Vital Signs: Vital Signs - 24 hr 07/11/24 21:29 07/11/24 21:58 07/11/24 23:10 Temperature 98.3 F 99.5 F Pulse Rate 120 H 121 H 123 H Respiratory Rate 24 H 23 H 20 Blood Pressure 156/71 H 160/64 H 172/70 H Pulse Oximetry 91 L 96 95 Oxygen Delivery Method Room Air Nasal Cannula Nasal Cannula Oxygen Flow Rate 2 2 07/12/24 01:34 Temperature 101.5 F H Pulse Rate 117 H Respiratory Rate 23 H Blood Pressure 169/69 H Pulse Oximetry 93 Oxygen Delivery Method Nasal Cannula Oxygen Flow Rate 1 BMI result Body Mass Index 24.0 Const Other: Alert, lethargic Orientation/consciousness: patient oriented x3 Resp Other: Appropriate air movement, no wheezing she is not tachypneic Effort & Inspection: normal respiratory effort Cardio Other: Normal peripheral perfusion Skin Other: Warm general rash Neuro General: patient oriented x3, no focal motor deficits and CN's II-XI intact bilaterally Psych Other: Cooperative Course Reevaluation(s) Reevaluation #1: Sepsis considered she is tachycardic, tachypneic, no fever, blood cultures and lactic obtained Time: 21:54 Reevaluation #2: It was thought that the patient's low oxygen was secondary to her malaise and she has been sleeping, however we got her up to reassess, she is objectively hypoxic into the 80s, she is now on a nasal cannula, given a negative chest x-ray, her lungs are clear, she is tachycardic, we will obtain a CTA to rule out PE. To note she also spiked a temp, this could be part of her tachycardia, we will be giving Tylenol. Medications Administered Discontinued Medications Generic Name Dose Route Start Last Admin Trade Name Freq PRN Reason Stop Dose Admin Acetaminophen 975 mg 07/12/24 01:47 07/12/24 02:04 Acetaminophen 325 Mg Tablet PO 07/12/24 01:48 975 mg ONCE ONE Administration Lactated Ringer's 1,000 mls @ 999 mls/hr 07/11/24 22:30 07/11/24 23:58 Lr IV 07/11/24 23:30 Infused .Q1H1M ADRYAN Infusion Ketorolac Tromethamine 15 mg 07/11/24 22:34 07/11/24 22:48 Ketorolac Tromethamine 15 Mg/Ml Vial IVPUSH 07/11/24 22:35 15 mg ONCE ONE Administration Ondansetron HCl 4 mg 07/11/24 22:34 07/11/24 22:48 Ondansetron Hcl 4 Mg/2 Ml Vial IVPUSH 07/11/24 22:35 4 mg ONCE ONE Administration Medical Decision Making Medical Decision Making MDM Narrative: 58-year-old female with a history of asthma, hyperlipidemia hypertension, diabetes, morbid obesity, arthritis, cardiomyopathy, coronary artery disease, presents with weakness. Patient states she has been feeling unwell at home today, with the extreme weakness. She states she sustained for falls secondary to her weakness. Patient states she did strike her head during 1 of the falls, there was no loss of consciousness. Patient currently complains of neck pain, she refused a C-collar per your arrival. Associated chest pain that she states is from her ?asthma?, and subjective fevers at home. Patient also states that she forgot to take her insulin today. No nausea, vomiting or diarrhea. Problem: Diabetes, asthma History: Per patient I have considered the following differential diagnoses: Intracranial hemorrhage, cervical spine injury, ACS, asthma exacerbation, viral syndrome, pneumonia , sepsis, drug tox, hyperglycemia, HHS, DKA Plan: Considering sepsis, she is tachycardic, tachypneic, but afebrile. Blood cultures and lactate were obtained. Her lungs are clear she is not wheezing, does not seem to be consistent with an asthma exacerbation. We will be adding on basic labs, viral panel and a chest x-ray. She is also complaining of chest discomfort, considering ACS, she does have known coronary artery disease, we will add an EKG and a troponin. Given head strike and she is on an anticoagulant, we will be scanning her head and neck. It is reassuring that she is not altered, there are no neurologic deficits she is not actively vomiting to suggest an intracranial hemorrhage. She does complain of neck pain, however she is ranging her neck appropriately, she refused a collar. Her demeanor is odd, she is extremely lethargic, toxidrome was considered, drug screen and ethanol added. She was also noted to be hyperglycemic, she may require a VBG and beta hydroxy, we will see what her chemistry reveals. I have independently reviewed the following tests: Labs: No leukocytosis, not anemic, she appears dry, bicarb on the low side is 19, sugar 497, but there was no gap that is 20, so no DKA, 1st lactic 2.6, blood cultures were obtained they are in process, 1st troponin 22.2 the 2nd is pending positive for influenza A. Urine not infected, tox screen negative...... Repeat lactic 1.8, 2nd troponin 26.6 CT brain:Impression: No acute intracranial process CT cervical spine:Findings: No acute fracture or dislocation is demonstrated. Posterior alignment is normal throughout. No significant degenerative change noted. No radiopaque foreign bodies noted. Impression: No acute processes CXR: Findings: Portions of the exam are obscured by overlying material. The lungs are clear. Normal size heart. No acute fracture. IMPRESSION: 1. No acute findings. This document has been electronically signed by: Hany White MD on 07/11/2024 22:16:33 CTA chest: Findings: Motion artifact limits evaluation of some of the subsegmental pulmonary arteries in the lower lungs. There is otherwise no evidence of a pulmonary embolism. There is mild cardiomegaly. Thoracic aorta is normal in diameter without dissection. There are no enlarged lymph nodes. There is subsegmental bibasilar atelectasis. Lungs appear otherwise clear allowing for limitation of motion artifact. Trachea and central bronchi are widely patent. There are chronic left rib fractures. There is no acute fracture or suspicious lytic or sclerotic lesion. Limited images of the upper abdomen demonstrate no acute findings. IMPRESSION: Motion artifact limits evaluation of some of the subsegmental pulmonary arteries. Otherwise no evidence of a pulmonary embolism. This document has been electronically signed by: Reza Blanchard MD on 07/12/2024 02:30:06 Lab Data 07/11/24 21:43 07/11/24 21:43 Labs: Lab Results 07/11/24 07/11/24 07/11/24 Range/Units 21:15 21:43 21:45 WBC 9.4 (4.8-10.8) X10*3/uL RBC 5.53 H D (4.20-5.50) X10*6/uL Hgb 15.1 (12.0-16.0) g/dl Hct 44.1 (37.0-47.0) % MCV 79.7 L (80.0-98.0) fL MCH 27.3 (27.0-33.0) pg MCHC 34.2 (31.0-35.0) g/dl RDW 12.5 (11.0-16.0) % Plt Count 271 (160-400) X10*3/uL MPV 10.3 (9.4-12.3) fL Immature Gran % (Auto) 0.3 (0.0-0.4) % Neut % (Auto) 89.5 H (45-73) % Lymph % (Auto) 4.9 L (20-40) % [place] % (Auto) 3.9 (2-11) % Eos % (Auto) 1.0 (0-4) % Baso % (Auto) 0.4 (0-2) % Lymph # (Auto) 0.5 L (1.2-4.9) X10*3/uL [place] # (Auto) 0.4 (0.1-1.2) X10*3/uL Eos # (Auto) 0.1 (0.0-0.4) X10*3/uL Baso # (Auto) 0.0 (0.0-0.2) X10*3/uL Abs Immat Gran (auto) 0.03 (0.00-0.03) X10*3/uL Absolute Neuts (auto) 8.4 H (2.0-8.3) x10*3/uL Absolute Nucleated RBC 0.000 (0.0-0.012) X10*3/uL Nucleated RBC % (auto) 0.0 (0.0-0.2) /100WBC Sodium 130 L (135-145) mmol/L Potassium 4.4 (3.3-5.1) mmol/L Chloride 95 L (96-108) mmol/L Carbon Dioxide 19 L (22-29) mmol/L Anion Gap 20 (12-20) BUN 12 (9-16) mg/dL Creatinine 0.78 (0.5-1.4) mg/dL Estim Creat Clear Calc 68.7 Estimated GFR > 60 POC Glucose 495 H* (60-115) mg/dL Random Glucose 497 H* (60-115) mg/dL Lactic Acid 2.6 H* (0.5-2.0) mmol/L Lactic Acid F/U @ 2Hr (0.5-2.0) mmol/L Calcium 9.6 (8.4-10.2) mg/dL Total Bilirubin 1.2 H (0.0-1.0) mg/dL AST 16 (5-31) U/L ALT 14 (0-31) U/L Alkaline Phosphatase 105 (39-117) U/L Troponin I High Sens 22.2 H D (<3.5-17.0) ng/L Total Protein 8.2 H (6.5-8.0) g/dL Albumin 4.1 (3.5-5.0) g/dL Urine Color Yellow Urine Appearance Clear Urine pH 5.5 (5.0-9.0) Ur Specific [place] >= 1.030 H (1.005-1.025) Urine Protein 30 (1+) H (Neg-Trace) mg/dL Urine Glucose (UA) >=1000 H (Negative) mg/dL Urine Ketones >=160 (Negative) mg/dL Urine Blood Trace H (Negative) Urine Nitrite Negative (Negative) Ur Leukocyte Esterase Negative (Negative) Urine RBC 0-2 (0-2) /HPF Urine WBC 0-5 (0-5) /HPF Ur Squamous Epith Cells 0-2 (0-2) /HPF Urine Bacteria None Seen (None Seen) Hyaline Casts 0-2 (0-2) /LPF Urine Opiates Screen Not Detected (Not Detect) Ur Buprenorphine Scrn Not Detected (Not Detect) ng/mL Ur Oxycodone Screen Not Detected (Not Detect) ng/mL Urine Methadone Screen Not Detected (Not Detect) ng/mL Urine Fentanyl Screen Not Detected (Not Detect) Ur Barbiturates Screen Not Detected (Not Detect) Ur Phencyclidine Scrn Not Detected (Not Detect) Ur Amphetamines Screen Not Detected (Not Detect) U Benzodiazepines Scrn Not Detected (Not Detect) Urine Cocaine Screen Not Detected (Not Detect) U Marijuana (THC) Screen Not Detected (Not Detect) Influenza Type A (PCR) POSITIVE A (Negative) Influenza Type B (PCR) NEGATIVE (Negative) RSV RNA Qual (PCR) NEGATIVE (Negative) SARS-CoV-2 RNA (RT-PCR) NEGATIVE (Negative) 07/12/24 Range/Units 00:19 WBC (4.8-10.8) X10*3/uL RBC (4.20-5.50) X10*6/uL Hgb (12.0-16.0) g/dl Hct (37.0-47.0) % MCV (80.0-98.0) fL MCH (27.0-33.0) pg MCHC (31.0-35.0) g/dl RDW (11.0-16.0) % Plt Count (160-400) X10*3/uL MPV (9.4-12.3) fL Immature Gran % (Auto) (0.0-0.4) % Neut % (Auto) (45-73) % Lymph % (Auto) (20-40) % [place] % (Auto) (2-11) % Eos % (Auto) (0-4) % Baso % (Auto) (0-2) % Lymph # (Auto) (1.2-4.9) X10*3/uL [place] # (Auto) (0.1-1.2) X10*3/uL Eos # (Auto) (0.0-0.4) X10*3/uL Baso # (Auto) (0.0-0.2) X10*3/uL Abs Immat Gran (auto) (0.00-0.03) X10*3/uL Absolute Neuts (auto) (2.0-8.3) x10*3/uL Absolute Nucleated RBC (0.0-0.012) X10*3/uL Nucleated RBC % (auto) (0.0-0.2) /100WBC Sodium (135-145) mmol/L Potassium (3.3-5.1) mmol/L Chloride (96-108) mmol/L Carbon Dioxide (22-29) mmol/L Anion Gap (12-20) BUN (9-16) mg/dL Creatinine (0.5-1.4) mg/dL Estim Creat Clear Calc Estimated GFR POC Glucose (60-115) mg/dL Random Glucose (60-115) mg/dL Lactic Acid (0.5-2.0) mmol/L Lactic Acid F/U @ 2Hr 1.8 (0.5-2.0) mmol/L Calcium (8.4-10.2) mg/dL Total Bilirubin (0.0-1.0) mg/dL AST (5-31) U/L ALT (0-31) U/L Alkaline Phosphatase (39-117) U/L Troponin I High Sens 26.6 H (<3.5-17.0) ng/L Total Protein (6.5-8.0) g/dL Albumin (3.5-5.0) g/dL Urine Color Urine Appearance Urine pH (5.0-9.0) Ur Specific [place] (1.005-1.025) Urine Protein (Neg-Trace) mg/dL Urine Glucose (UA) (Negative) mg/dL Urine Ketones (Negative) mg/dL Urine Blood (Negative) Urine Nitrite (Negative) Ur Leukocyte Esterase (Negative) Urine RBC (0-2) /HPF Urine WBC (0-5) /HPF Ur Squamous Epith Cells (0-2) /HPF Urine Bacteria (None Seen) Hyaline Casts (0-2) /LPF Urine Opiates Screen (Not Detect) Ur Buprenorphine Scrn (Not Detect) ng/mL Ur Oxycodone Screen (Not Detect) ng/mL Urine Methadone Screen (Not Detect) ng/mL Urine Fentanyl Screen (Not Detect) Ur Barbiturates Screen (Not Detect) Ur Phencyclidine Scrn (Not Detect) Ur Amphetamines Screen (Not Detect) U Benzodiazepines Scrn (Not Detect) Urine Cocaine Screen (Not Detect) U Marijuana (THC) Screen (Not Detect) Influenza Type A (PCR) (Negative) Influenza Type B (PCR) (Negative) RSV RNA Qual (PCR) (Negative) SARS-CoV-2 RNA (RT-PCR) (Negative) Discharge Plan Discharge Clinical Impression: Influenza A, Hypoxia Patient Disposition: Admitted As Inpatient
[2024-07-12 00:50] LABS: ~Lactic Acid-LAB USE ONLY 1.8 mmol/L (0.5-2.0)
[2024-07-12 00:57] LABS: Troponin-I High Sensitivity 26.6 ng/L (<3.5-17.0)
[2024-07-12] MEDS: Acetaminophen 325 MG TABLET 975 MG PO (02:04)
--- NOTE | 2024-07-12 02:08 | P.HPHOSP_ITS ---
History of Present Illness Date of Service: 07/12/24 Chief Complaint: Cough and weakness This is a 58-year-old female with pertinent history of asthma not on home oxygen, insulin-dependent diabetes mellitus with neuropathy, hypertension, mixed hyperlipidemia, CAD who presents to the emergency department for evaluation of weakness and cough. Patient states she has been feeling weak and has generalized malaise and fatigue. Also has been having fevers and chills with nonproductive cough and wheezing. Patient had a fall due to weakness where she did strike her head. No loss of consciousness. No dizziness or lightheadedness prior to the fall. No chest pain or palpitations prior to the fall. No jerking movement of extremities. No nausea, vomiting, palpitations, abdominal pain, changes in urinary or bowel habits. In the emergency department, patient tested positive for influenza a and found to be satting 86% on room air. Review of Systems 2 Constitutional: Constitutional: Reports fatigue, Reports malaise and Reports weakness Cardiovascular: Cardiovascular: Reports dyspnea on exertion Respiratory: Respiratory: Reports cough, Reports dyspnea on exertion and Reports wheezing Gastrointestinal: Gastrointestinal: Reports no additional gastrointestinal complaints Genitourinary: Genitourinary: Reports no additional female genitourinary complaints Neurologic: Reports weakness Endocrine: Endocrine: Reports fatigue Allergic/Immunologic: Allergic/Immunologic: Reports wheezing [facility] Medical History Atherosclerotic cardiovascular disease Cardiomyopathy Type 2 diabetes mellitus with diabetic polyneuropathy History of CVA (cerebrovascular accident) Overweight HLD (hyperlipidemia) DM2 (diabetes mellitus, type 2) Asthma Hypertension Depression Myocardial infarction Family History Father No problems noted. Mother No problems noted. Surgical History Hx of cholecystectomy Hx of section Social History Household Members: Significant Other Alcohol intake: never Patient Tobacco Use Status: Former Tobacco user Advance Directives: No Advance Directives Information Provided: No Current occupational status: disabled Meds Allergies Allergy/AdvReac Type Severity Reaction Status Date / Time morphine [MORPHINE] Allergy Intermediate ITCHY, RASH Verified 07/11/24 21:30 oxycodone Allergy Hives Verified 07/11/24 21:30 Home Medications ?Medication ?Instructions ?Recorded ?Confirmed ?Last Taken ?Type amlodipine 10 mg tablet 10 mg PO DAILY 02/10/21 05/28/24 Unknown History aspirin 81 mg tablet,delayed 81 mg PO DAILY 02/10/21 05/28/24 Unknown History release (Adult Low Dose Aspirin) atorvastatin 80 mg tablet 80 mg PO DAILY 02/10/21 05/28/24 Unknown History gabapentin 100 mg capsule 100 mg PO DAILY 02/10/21 05/28/24 Unknown History isosorbide mononitrate 30 mg 30 mg PO QAM 02/10/21 05/28/24 Unknown History tablet,extended release 24 hr lisinopril 40 mg tablet 40 mg PO DAILY 02/10/21 05/28/24 Unknown History loratadine 10 mg tablet 10 mg PO DAILY 02/10/21 05/28/24 Unknown History mecobalamin (vitamin B12) 1,000 1,000 mcg PO DAILY 02/10/21 05/28/24 Unknown History mcg chewable tablet metformin 500 mg tablet,extended 1,000 mg PO BID 02/10/21 05/28/24 Unknown History release 24 hr metoprolol succinate 100 mg 100 mg PO DAILY 02/10/21 05/28/24 Unknown History tablet,extended release 24 hr omeprazole 40 mg capsule,delayed 40 mg PO DAILY 02/10/21 05/28/24 Unknown History release fluticasone propionate 220 2 puff inhalation BID 06/09/22 05/28/24 Unknown History mcg/actuation HFA aerosol inhaler (Flovent HFA) Physical Exam 2 Vital Signs and Narrative: Vital Signs: Last Vital Signs Temp 101.5 F H 07/12/24 01:34 Pulse 117 H 07/12/24 01:34 Resp 23 H 07/12/24 01:34 BP 169/69 H 07/12/24 01:34 Pulse Ox 93 07/12/24 01:34 O2 Del Method Nasal Cannula 07/12/24 01:34 O2 Flow Rate 1 07/12/24 01:34 BMI result Body Mass Index 24.0 Middle-aged female lying in bed in mild distress on supplemental oxygen Neck supple, no JVD Regular rate and rhythm, S1-S2 heard Bilateral wheezing present Abdomen soft nontender, no guarding, no rigidity Patient is awake, alert and oriented to self, place, time and person ; no focal motor deficit Psych: Normal mood No pedal edema Results Labs 07/11/24 21:43 07/11/24 21:43 Labs: Laboratory Results - last 24 hr 07/11/24 07/11/24 07/11/24 21:15 21:43 21:45 MCV 79.7 L MCH 27.3 MCHC 34.2 RDW 12.5 Plt Count 271 MPV 10.3 Immature Gran % (Auto) 0.3 Neut % (Auto) 89.5 H Lymph % (Auto) 4.9 L [place] % (Auto) 3.9 Eos % (Auto) 1.0 Baso % (Auto) 0.4 Lymph # (Auto) 0.5 L [place] # (Auto) 0.4 Eos # (Auto) 0.1 Baso # (Auto) 0.0 Abs Immat Gran (auto) 0.03 Absolute Neuts (auto) 8.4 H Absolute Nucleated RBC 0.000 Nucleated RBC % (auto) 0.0 Anion Gap 20 Estim Creat Clear Calc 68.7 Estimated GFR > 60 POC Glucose 495 H* Random Glucose 497 H* Lactic Acid 2.6 H* Lactic Acid F/U @ 2Hr Calcium 9.6 Total Bilirubin 1.2 H AST 16 ALT 14 Alkaline Phosphatase 105 Total Protein 8.2 H Albumin 4.1 Urine Color Yellow Urine Appearance Clear Urine pH 5.5 Ur Specific [place] >= 1.030 H Urine Protein 30 (1+) H Urine Glucose (UA) >=1000 H Urine Ketones >=160 Urine Blood Trace H Urine Nitrite Negative Ur Leukocyte Esterase Negative Urine RBC 0-2 Urine WBC 0-5 Ur Squamous Epith Cells 0-2 Urine Bacteria None Seen Hyaline Casts 0-2 Urine Opiates Screen Not Detected Ur Buprenorphine Scrn Not Detected Ur Oxycodone Screen Not Detected Urine Methadone Screen Not Detected Urine Fentanyl Screen Not Detected Ur Barbiturates Screen Not Detected Ur Phencyclidine Scrn Not Detected Ur Amphetamines Screen Not Detected U Benzodiazepines Scrn Not Detected Urine Cocaine Screen Not Detected U Marijuana (THC) Screen Not Detected Influenza Type A (PCR) POSITIVE A Influenza Type B (PCR) NEGATIVE RSV RNA Qual (PCR) NEGATIVE SARS-CoV-2 RNA (RT-PCR) NEGATIVE 07/12/24 00:19 MCV MCH MCHC RDW Plt Count MPV Immature Gran % (Auto) Neut % (Auto) Lymph % (Auto) [place] % (Auto) Eos % (Auto) Baso % (Auto) Lymph # (Auto) [place] # (Auto) Eos # (Auto) Baso # (Auto) Abs Immat Gran (auto) Absolute Neuts (auto) Absolute Nucleated RBC Nucleated RBC % (auto) Anion Gap Estim Creat Clear Calc Estimated GFR POC Glucose Random Glucose Lactic Acid Lactic Acid F/U @ 2Hr 1.8 Calcium Total Bilirubin AST ALT Alkaline Phosphatase Total Protein Albumin Urine Color Urine Appearance Urine pH Ur Specific [place] Urine Protein Urine Glucose (UA) Urine Ketones Urine Blood Urine Nitrite Ur Leukocyte Esterase Urine RBC Urine WBC Ur Squamous Epith Cells Urine Bacteria Hyaline Casts Urine Opiates Screen Ur Buprenorphine Scrn Ur Oxycodone Screen Urine Methadone Screen Urine Fentanyl Screen Ur Barbiturates Screen Ur Phencyclidine Scrn Ur Amphetamines Screen U Benzodiazepines Scrn Urine Cocaine Screen U Marijuana (THC) Screen Influenza Type A (PCR) Influenza Type B (PCR) RSV RNA Qual (PCR) SARS-CoV-2 RNA (RT-PCR) Assessment and Plan (1) Hypoxia: Status: Acute (2) Influenza A: Status: Acute Plan This is a 58-year-old female with pertinent history of asthma not on home oxygen, insulin-dependent diabetes mellitus with neuropathy, hypertension, mixed hyperlipidemia, CAD, gastroesophageal reflux disease who presents to the emergency department for evaluation of weakness and cough. #. Acute hypoxemic respiratory failure and viral sepsis due to influenza A leading to asthma exacerbation: Will admit patient with supplemental oxygen. Scheduled DuoNebs and systemic steroids. Ordered Tamiflu. No concern for bacterial superinfection. Defer antibiotics. #. Insulin-dependent diabetes mellitus with hyperglycemia: Initiating basal plus insulin regimen. On gabapentin for diabetic neuropathy #. Acute lactic acidosis due to hypoxia #. CAD: On aspirin and statin #. Hypertension: Continue home antihypertensives #. Gastroesophageal reflux disease: On PPI Med rec pending DVT prophylaxis: Lovenox Full code Admit as inpatient and will require two night minimum hospital stay for supplemental oxygen (as above), which is not possible in a lesser acute setting. Quality Stroke Does the patient have a stroke diagnosis?: No VTE Prior VTE?: No VTE Risk Level:: Medical - moderate - high VTE Device Contraindication: Treatment Not Indicated VTE Drug Contraindication: N/A - Med Ordered
[2024-07-12] MEDS: Oseltamivir Phosphate 75 MG CAPSULE PO ×3 (03:35→19:49)
[2024-07-12] MEDS: Insulin Regular, Human 100 UNIT/ML 10 ML VIAL IVPUSH (03:35)
[2024-07-12] MEDS: predniSONE 20 MG TABLET 40 MG PO (03:35)
[2024-07-12] MEDS: Insulin Glargine,Hum.rec.anlog 100 UNIT/ML 10 ML VIAL 50 UNIT SUBCUT ×2 (03:36→19:49)
[2024-07-12] MEDS: ondansetron HCL 4 MG/2 ML VIAL IVPUSH (06:37)
--- NOTE | 2024-07-12 07:08 | PC.NURSE ---
pt resting comfortably throughout the night, c/o nausea/dry heaving. pt medicated per JUL. purewick in place
[2024-07-12 07:13] LABS: Anion Gap 14 (12-20); Blood Urea Nitrogen 9 mg/dL (9-16); Calcium 9.4 mg/dL (8.4-10.2); Carbon Dioxide 19 mmol/L (22-29); Chloride 102 mmol/L (96-108); Creatinine Clr Calc Pharmacy 82.5; Estimated Glomerular Filt Rate > 60; Glucose Random 269 mg/dL (60-115); Potassium 4.3 mmol/L (3.3-5.1); Sodium 131 mmol/L (135-145)
[2024-07-12 07:25] LABS: Basophils Percent Auto 0.3 % (0-2); Eosinophils Percent Auto 0.3 % (0-4); Hemoglobin 14.4 g/dl (12.0-16.0); Imm Gran Abs Auto 0.03 X10*3/uL (0.00-0.03); Imm Gran Pct Auto 0.3 % (0.0-0.4); Lymphocytes Absolute Auto 0.7 X10*3/uL (1.2-4.9); Lymphocytes Percent Auto 7.9 % (20-40); MANUAL DIFF FLAG SCAN; Mean Corpuscular HGB Conc 33.5 g/dl (31.0-35.0); Mean Corpuscular Hemoglobin 27.3 pg (27.0-33.0); Mean Corpuscular Volume 81.6 fL (80.0-98.0); Monocytes Absolute Auto 0.4 X10*3/uL (0.1-1.2); Monocytes Percent Auto 4.5 % (2-11); Neutrophils Absolute Auto 7.9 x10*3/uL (2.0-8.3); Neutrophils Percent Auto 86.7 % (45-73); PLT CLUMP 1; Red Blood Count 5.27 X10*6/uL (4.20-5.50); Red Cell Distribution Width 12.8 % (11.0-16.0); SCAN SMEAR FLAG 1
[2024-07-12 07:29] LABS: White Blood Count 9.1 X10*3/uL (4.8-10.8)
[2024-07-12 07:29] LABS: Glucose, Whole Blood 288 mg/dL (60-115)
[2024-07-12] MEDS: Insulin Lispro 100 UNIT/ML 3 ML VIAL SUBCUT ×4 (07:40→22:19)
[2024-07-12] MEDS: Albuterol/Iprat 2.5/0.5MG 3 ML AMPUL.NEB INHALE ×4 (08:19→19:01)
[2024-07-12 08:58] LABS: SLIDE REVIEW VERIFIED
[2024-07-12] MEDS: 0.9 % Sodium Chloride Flush 3 ML SYRINGE IVFLUSH ×2 (09:26→15:09)
[2024-07-12] MEDS: Enoxaparin Sodium 40 MG/0.4 ML SYRINGE SUBCUT (09:26)
--- NOTE | 2024-07-12 11:54 | MHC.EDTECH ---
pt called the [facility] for assistance and stated she needs to use the bathroom, she does not want to use PureWick- pt helped to the commode, voided, back in bed. PureWick discontinued.
[2024-07-12 11:56] LABS: Glucose, Whole Blood 296 mg/dL (60-115)
--- NOTE | 2024-07-12 12:43 | PHA.MEDREC ---
Addendum entered by Che Sharif [facility] 07/12/24 13:18: Reviewed by pharmacist Original Note: Pharmacy Consult ? Medication Reconciliation Pharmacy has completed the medication reconciliation. Spoke with patient to confirm medications. She was in and out during the conversation. Used claims from [facility] to confirm most medications. She reports her metformin is 1 tab bid, second one at 3pm (rx says 1 tab qam and 2 tabs qpm). She reports novolog as 10 units with BF, 8 units with lunch, and 10 units with dinner, rx says 10u, 10u, 12u. She said Tresiba is 100 units at bedtime, rx says 65 units. She reports she was supposed to have Trulicity yesterday but did not get it due to being in the hospital, said she had last Sunday. She did not know the name of her insulin pump, she only knew the colors (light blue and pink). She had claims from February 2024 for [employer] Simplicity 2, unsure if it is the same.
--- NOTE | 2024-07-12 14:03 | PM.EVENT ---
Event Note Date of Service: 07/12/24 Event Note: This is a 58-year-old female with pertinent history of asthma not on home oxygen, insulin-dependent diabetes mellitus with neuropathy, hypertension, mixed hyperlipidemia, CAD, gastroesophageal reflux disease who presents to the emergency department for evaluation of weakness and cough. Acute hypoxemic respiratory failure and viral sepsis due to influenza A leading to asthma exacerbation supplemental oxygen. Scheduled DuoNebs and systemic steroids. Ordered Tamiflu. No concern for bacterial superinfection. Defer antibiotics. Acute lactic acidosis due to hypoxia DM2 ss, metformin, ADA diet CAD On aspirin and statin Diabetic neuropathy Continue gabapentin Hypertension Continue home antihypertensives Gastroesophageal reflux disease On PPI DVT prophylaxis: Lovenox Full code Time Spent With Patient Time: Total time managing care of this patient today ____ minutes.
[2024-07-12] MEDS: Isosorbide Mononitrate 30 MG TAB.ER.24H PO (15:07)
[2024-07-12] MEDS: Metoprolol Tartrate 100 MG TABLET PO (15:07)
[2024-07-12] MEDS: Acetaminophen 325 MG TABLET 650 MG PO (15:07)
[2024-07-12] MEDS: lisinopriL 40 MG TABLET PO (15:07)
[2024-07-12] MEDS: amLODIPine Besylate 10 MG TABLET PO (15:07)
--- NOTE | 2024-07-12 15:47 | MHC.CM.PN ---
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
[2024-07-12 16:06] LABS: Glucose, Whole Blood 280 mg/dL (60-115)
[2024-07-12] MEDS: metFORMIN HCl ER 500 MG TAB.ER.24H 1000 MG PO (16:09)
[2024-07-12] MEDS: Gabapentin 100 MG CAPSULE PO (19:49)
[2024-07-12] MEDS: Docusate Sodium 100 MG CAPSULE PO (19:49)
[2024-07-12] MEDS: Aspirin Enteric Coated 81 MG TABLET.DR PO (19:49)
[2024-07-12 20:54] LABS: Glucose, Whole Blood 216 mg/dL (60-115)
[2024-07-13] VITALS (10 sets, daily range): BP systolic 90–142; BP diastolic 50–68; PULSE 67–91; RESP 14–20; TEMP 36.6–37.4; O2SAT 91–97
[2024-07-13] MEDS: 0.9 % Sodium Chloride Flush 3 ML SYRINGE IVFLUSH ×3 (00:38→20:07)
[2024-07-13] MEDS: Omeprazole 40 MG CAPSULE.DR PO (05:46)
[2024-07-13 07:28] LABS: Glucose, Whole Blood 150 mg/dL (60-115)
[2024-07-13] MEDS: Fluticasone Propionate 250 MCG BLST.W.DEV 1 PUFF INHALE (07:48)
[2024-07-13] MEDS: Albuterol/Iprat 2.5/0.5MG 3 ML AMPUL.NEB INHALE ×4 (07:48→19:03)
[2024-07-13] MEDS: Atorvastatin Calcium 80 MG TABLET PO (08:30)
[2024-07-13] MEDS: Oseltamivir Phosphate 75 MG CAPSULE PO ×2 (08:31→20:06)
[2024-07-13] MEDS: amLODIPine Besylate 10 MG TABLET PO (08:31)
[2024-07-13] MEDS: Isosorbide Mononitrate 30 MG TAB.ER.24H PO (08:31)
[2024-07-13] MEDS: metFORMIN HCl ER 500 MG TAB.ER.24H PO (08:31)
[2024-07-13] MEDS: lisinopriL 40 MG TABLET PO (08:31)
[2024-07-13] MEDS: Cyanocobalamin (Vitamin B-12) 1,000 MCG TABLET 1000 MCG PO (08:32)
[2024-07-13] MEDS: predniSONE 20 MG TABLET 40 MG PO (08:32)
[2024-07-13] MEDS: Metoprolol Tartrate 100 MG TABLET PO (08:32)
[2024-07-13] MEDS: Loratadine 10 MG TABLET PO (08:32)
[2024-07-13] MEDS: Enoxaparin Sodium 40 MG/0.4 ML SYRINGE SUBCUT (08:32)
[2024-07-13] MEDS: Acetaminophen 325 MG TABLET 650 MG PO (08:39)
--- NOTE | 2024-07-13 10:09 | P.PNIM_ITS ---
Subjective Subjective Date of Service: 07/13/24 Physical Exam 2 Vital Signs: Vital Signs: Last Vital Signs Temp 99.4 F 07/13/24 07:55 Pulse 87 07/13/24 07:55 Resp 14 07/13/24 07:55 BP 142/68 H 07/13/24 07:55 Pulse Ox 96 07/13/24 07:55 O2 Del Method Room Air 07/13/24 07:55 O2 Flow Rate 2 07/12/24 23:50 BMI result Body Mass Index 26.7 Objective Data Active Medications Acetaminophen (Acetaminophen 325 Mg Tablet) 650 mg PO Q6H PRN PRN Reason: Pain, Mild 1-3,fever,headache Last Admin: 07/13/24 08:39 Dose: 650 mg Documented By: ITZEL Albuterol/Ipratropium (Albuterol/Iprat 2.5/0.5mg 3 Ml Ampul.Neb) 3 ml INHALE RQ4H WHILE AWAKE [facility] Last Admin: 07/13/24 07:48 Dose: 3 ml Documented By: ARLEY Amlodipine Besylate (Amlodipine Besylate 10 Mg Tablet) 10 mg PO DAILY [facility]; Protocol Last Admin: 07/13/24 08:31 Dose: 10 mg Documented By: ITZEL Aspirin (Aspirin Enteric Coated 81 Mg Tablet.) 81 mg PO BEDTIME [facility] Last Admin: 07/12/24 19:49 Dose: 81 mg Documented By: MIHIR Atorvastatin Calcium (Atorvastatin Calcium 80 Mg Tablet) 80 mg PO DAILY [facility] Last Admin: 07/13/24 08:30 Dose: 80 mg Documented By: ITZEL Calcium Carbonate (Calcium Carbonate 750 Mg Tab.Chew) 750 mg PO Q4H PRN PRN Reason: Heartburn Celecoxib (Celecoxib 200 Mg Capsule) 200 mg PO BID PRN PRN Reason: for pain Cyanocobalamin (Cyanocobalamin (Vitamin B-12) 1,000 Mcg Tablet) 1,000 mcg PO DAILY [facility] Last Admin: 07/13/24 08:32 Dose: 1,000 mcg Documented By: ITZEL Dextrose (Dextrose 50 % 25 Gm/50 Ml Syringe) 25 gm IVPUSH Q15M PRN; Protocol PRN Reason: per Hypoglycemia Standing Ord. Docusate Sodium (Docusate Sodium 100 Mg Capsule) 100 mg PO BEDTIME [facility] Last Admin: 07/12/24 19:49 Dose: 100 mg Documented By: MIHIR Enoxaparin Sodium (Enoxaparin Sodium 40 Mg/0.4 Ml Syringe) 40 mg SUBCUT DAILY [facility] Last Admin: 07/13/24 08:32 Dose: 40 mg Documented By: ITZEL Fluticasone Propionate (Fluticasone Propionate 250 Mcg Blst.W.Dev) 1 puff INHALE RBID [facility] Last Admin: 07/13/24 07:48 Dose: 1 puff Documented By: ARLEY Gabapentin (Gabapentin 100 Mg Capsule) 100 mg PO BEDTIME [facility] Last Admin: 07/12/24 19:49 Dose: 100 mg Documented By: MIHIR Glucose (Glucose Gel 15 Gm Gel..Gram.) 15 gm PO Q15M PRN; Protocol PRN Reason: per Hypoglycemia Standing Ord. Insulin Glargine (Insulin Glargine,Hum.Rec.Anlog 100 Unit/Ml 10 Ml Vial) 50 unit SUBCUT BEDTIME [facility] Last Admin: 07/12/24 19:49 Dose: 50 unit Documented By: MIHIR Insulin Human Lispro (Insulin Lispro 100 Unit/Ml 3 Ml Vial) 0 unit SUBCUT QIDACHS [facility]; Protocol Last Admin: 07/13/24 07:37 Dose: Not Given Documented By: ITZEL Non-Admin Reason: No Insulin Coverage Isosorbide Mononitrate (Isosorbide Mononitrate 30 Mg Tab.Er.24h) 30 mg PO DAILY [facility]; Protocol Last Admin: 07/13/24 08:31 Dose: 30 mg Documented By: ITZEL Lisinopril (Lisinopril 40 Mg Tablet) 40 mg PO DAILY [facility]; Protocol Last Admin: 07/13/24 08:31 Dose: 40 mg Documented By: ITZEL Loratadine (Loratadine 10 Mg Tablet) 10 mg PO DAILY [facility] Last Admin: 07/13/24 08:32 Dose: 10 mg Documented By: ITZEL Magnesium Hydroxide (Milk Of Magnesia 30 Ml Oral.Susp) 30 ml PO DAILY PRN PRN Reason: Constipation Meclizine HCl (Meclizine Hcl 25 Mg Tablet) 25 mg PO TID PRN PRN Reason: dizziness Melatonin (Melatonin 3 Mg Tablet) 6 mg PO BEDTIME PRN PRN Reason: Insomnia Metformin HCl (Metformin Hcl Er 500 Mg Tab.Er.24h) 1,000 mg PO DAILY@1700 [facility] Last Admin: 07/12/24 16:09 Dose: 1,000 mg Documented By: SHELLY Metformin HCl (Metformin Hcl Er 500 Mg Tab.Er.24h) 500 mg PO DAILY [facility] Last Admin: 07/13/24 08:31 Dose: 500 mg Documented By: ITZEL Metoprolol Tartrate (Metoprolol Tartrate 100 Mg Tablet) 100 mg PO DAILY [facility]; Protocol Last Admin: 07/13/24 08:32 Dose: 100 mg Documented By: ITZEL Omeprazole (Omeprazole 40 Mg Capsule.) 40 mg PO DAILY@0630 [facility] Last Admin: 07/13/24 05:46 Dose: 40 mg Documented By: MIHIR Ondansetron HCl (Ondansetron Hcl 4 Mg/2 Ml Vial) 4 mg IVPUSH Q8H PRN PRN Reason: Nausea and Vomiting Last Admin: 07/12/24 06:37 Dose: 4 mg Documented By: TREMAINE Oseltamivir Phosphate (Oseltamivir Phosphate 75 Mg Capsule) 75 mg PO BID [facility] Stop: 07/16/24 09:01 Last Admin: 07/13/24 08:31 Dose: 75 mg Documented By: ITZEL Prednisone (Prednisone 20 Mg Tablet) 40 mg PO DAILY [facility] Last Admin: 07/13/24 08:32 Dose: 40 mg Documented By: ITZEL Sodium Chloride (0.9 % Sodium Chloride Flush 3 Ml Syringe) 3 ml IVFLUSH QSHIFT [facility] Last Admin: 07/13/24 08:40 Dose: 3 ml Documented By: ITZEL Labs 07/12/24 06:49 07/12/24 06:49 Labs: Laboratory Results - last 24 hr 07/12/24 07/12/24 07/12/24 11:53 16:02 20:35 POC Glucose 296 H 280 H 216 H 07/13/24 07:10 POC Glucose 150 H Microbiology Microbiology Results: Microbiology 07/11/24 21:54 Blood Culture - Preliminary Blood - Venous No growth after 24 hours. 07/11/24 21:45 Blood Culture - Preliminary Blood - Venous No growth after 24 hours. Assessment and Plan (1) Hypertension: Status: Acute Plan This is a 58-year-old female with pertinent history of asthma not on home oxygen, insulin-dependent diabetes mellitus with neuropathy, hypertension, mixed hyperlipidemia, CAD, gastroesophageal reflux disease who presents to the emergency department for evaluation of weakness and cough. Acute hypoxemic respiratory failure and viral sepsis due to influenza A leading to asthma exacerbation supplemental oxygen. Scheduled DuoNebs and systemic steroids. Tamiflu. No concern for bacterial superinfection. Defer antibiotics. Acute lactic acidosis due to hypoxia DM2 ss, metformin, ADA diet CAD On aspirin and statin Diabetic neuropathy Continue gabapentin Hypertension Continue home antihypertensives Gastroesophageal reflux disease On PPI DVT prophylaxis: Lovenox Full code Quality Stroke Does the patient have a stroke diagnosis?: No VTE Prior VTE?: No VTE Risk Level:: Medical - moderate - high VTE Device Contraindication: Treatment Not Indicated VTE Drug Contraindication: N/A - Med Ordered
[2024-07-13 11:31] LABS: Glucose, Whole Blood 268 mg/dL (60-115)
[2024-07-13] MEDS: Insulin Lispro 100 UNIT/ML 3 ML VIAL SUBCUT ×3 (11:35→20:06)
[2024-07-13] MEDS: Celecoxib 200 MG CAPSULE PO (13:40)
[2024-07-13] MEDS: Lactated Ringers 1,000 ML 100 ML IVCONT ×2 (15:35→20:14)
[2024-07-13 16:34] LABS: Glucose, Whole Blood 294 mg/dL (60-115)
[2024-07-13] MEDS: metFORMIN HCl ER 500 MG TAB.ER.24H 1000 MG PO (16:38)
[2024-07-13] MEDS: Gabapentin 100 MG CAPSULE PO (20:06)
[2024-07-13] MEDS: Docusate Sodium 100 MG CAPSULE PO (20:06)
[2024-07-13] MEDS: Aspirin Enteric Coated 81 MG TABLET.DR PO (20:06)
[2024-07-13] MEDS: Insulin Glargine,Hum.rec.anlog 100 UNIT/ML 10 ML VIAL 50 UNIT SUBCUT (20:07)
[2024-07-13 20:17] LABS: Glucose, Whole Blood 318 mg/dL (60-115)
[2024-07-14] VITALS (9 sets, daily range): BP systolic 113–157; BP diastolic 61–78; PULSE 70–87; RESP 18; TEMP 36.2–36.9; O2SAT 89–98
[2024-07-14] MEDS: Albuterol Sulfate (0.083%) 2.5 MG/3 ML VIAL.NEB INHALE (02:48)
[2024-07-14] MEDS: Omeprazole 40 MG CAPSULE.DR PO (06:01)
[2024-07-14] MEDS: Lactated Ringers 1,000 ML 100 ML IVCONT (06:01)
[2024-07-14 06:27] LABS: Hematocrit 37.2 % (37.0-47.0); Hemoglobin 12.4 g/dl (12.0-16.0); Mean Corpuscular HGB Conc 33.3 g/dl (31.0-35.0); Mean Corpuscular Hemoglobin 27.3 pg (27.0-33.0); Mean Corpuscular Volume 81.9 fL (80.0-98.0); Mean Platelet Volume 10.7 fL (9.4-12.3); Platelet Count 256 X10*3/uL (160-400); Red Blood Count 4.54 X10*6/uL (4.20-5.50); Red Cell Distribution Width 12.5 % (11.0-16.0); White Blood Count 6.9 X10*3/uL (4.8-10.8)
[2024-07-14 07:16] LABS: Anion Gap 12 (12-20); Blood Urea Nitrogen 15 mg/dL (9-16); Calcium 9.2 mg/dL (8.4-10.2); Carbon Dioxide 24 mmol/L (22-29); Chloride 105 mmol/L (96-108); Creatinine Clr Calc Pharmacy 99.2; Estimated Glomerular Filt Rate > 60; Glucose Random 100 mg/dL (60-115); Potassium 3.9 mmol/L (3.3-5.1); Sodium 137 mmol/L (135-145)
[2024-07-14 07:43] LABS: Glucose, Whole Blood 83 mg/dL (60-115)
[2024-07-14] MEDS: Albuterol/Iprat 2.5/0.5MG 3 ML AMPUL.NEB INHALE ×4 (07:59→20:38)
--- NOTE | 2024-07-14 08:29 | P.PNIM_ITS ---
Subjective Subjective Date of Service: 07/14/24 Review of Systems Follow up Flu A feeling better today BP normal Physical Exam 2 Vital Signs: Vital Signs: Last Vital Signs Temp 97.1 F 07/14/24 07:34 Pulse 87 07/14/24 08:01 Resp 18 07/14/24 08:01 BP 139/71 07/14/24 07:34 Pulse Ox 93 07/14/24 07:34 O2 Del Method Nasal Cannula 07/14/24 07:34 O2 Flow Rate 2 07/14/24 07:34 BMI result Body Mass Index 26.7 Appearing in no acute distress lung sounds are clear to auscultation heart regular rate rhythm, clear S1, S2 positive bowel sounds, abdomen is soft, nontender neuro patient is alert x3, no focal deficits Objective Data Active Medications Acetaminophen (Acetaminophen 325 Mg Tablet) 650 mg PO Q6H PRN PRN Reason: Pain, Mild 1-3,fever,headache Last Admin: 07/13/24 08:39 Dose: 650 mg Documented By: ITZEL Albuterol/Ipratropium (Albuterol/Iprat 2.5/0.5mg 3 Ml Ampul.Neb) 3 ml INHALE RQ4H WHILE AWAKE [facility] Last Admin: 07/14/24 07:59 Dose: 3 ml Documented By: CARLOS Amlodipine Besylate (Amlodipine Besylate 10 Mg Tablet) [address] [facility]; Protocol Last Admin: 07/13/24 08:31 Dose: 10 mg Documented By: ITZEL Aspirin (Aspirin Enteric Coated 81 Mg Tablet.) [address] [facility] Last Admin: 07/13/24 20:06 Dose: 81 mg Documented By: SANDI Atorvastatin Calcium (Atorvastatin Calcium 80 Mg Tablet) [address] [facility] Last Admin: 07/13/24 08:30 Dose: 80 mg Documented By: ITZEL Calcium Carbonate (Calcium Carbonate 750 Mg Tab.Chew) 750 mg PO Q4H PRN PRN Reason: Heartburn Celecoxib (Celecoxib 200 Mg Capsule) 200 mg PO BID PRN PRN Reason: for pain Last Admin: 07/13/24 13:40 Dose: 200 mg Documented By: ITZEL Cyanocobalamin (Cyanocobalamin (Vitamin B-12) 1,000 Mcg Tablet) 1,[address] [facility] Last Admin: 07/13/24 08:32 Dose: 1,000 mcg Documented By: ITZEL Dextrose (Dextrose 50 % 25 Gm/50 Ml Syringe) 25 gm IVPUSH Q15M PRN; Protocol PRN Reason: per Hypoglycemia Standing Ord. Docusate Sodium (Docusate Sodium 100 Mg Capsule) [address] [facility] Last Admin: 07/13/24 20:06 Dose: 100 mg Documented By: SANDI Enoxaparin Sodium (Enoxaparin Sodium 40 Mg/0.4 Ml Syringe) [address] [facility] Last Admin: 07/13/24 08:32 Dose: 40 mg Documented By: ITZEL Gabapentin (Gabapentin 100 Mg Capsule) [address] [facility] Last Admin: 07/13/24 20:06 Dose: 100 mg Documented By: SANDI Glucose (Glucose Gel 15 Gm Gel..Gram.) 15 gm PO Q15M PRN; Protocol PRN Reason: per Hypoglycemia Standing Ord. Insulin Glargine (Insulin Glargine,Hum.Rec.Anlog 100 Unit/Ml 10 Ml Vial) [address] [facility] Last Admin: 07/13/24 20:07 Dose: 50 unit Documented By: SANDI Insulin Human Lispro (Insulin Lispro 100 Unit/Ml 3 Ml Vial) [address] [facility]; Protocol Last Admin: 07/14/24 07:51 Dose: Not Given Documented By: GRAYSON Non-Admin Reason: No Insulin Coverage Isosorbide Mononitrate (Isosorbide Mononitrate 30 Mg Tab.Er.24h) [address] [facility]; Protocol Last Admin: 07/13/24 08:31 Dose: 30 mg Documented By: ITZEL Lisinopril (Lisinopril 40 Mg Tablet) [address] [facility]; Protocol Last Admin: 07/13/24 08:31 Dose: 40 mg Documented By: ITZEL Loratadine (Loratadine 10 Mg Tablet) [address] [facility] Last Admin: 07/13/24 08:32 Dose: 10 mg Documented By: ITZEL Magnesium Hydroxide (Milk Of Magnesia 30 Ml Oral.Susp) 30 ml PO DAILY PRN PRN Reason: Constipation Meclizine HCl (Meclizine Hcl 25 Mg Tablet) 25 mg PO TID PRN PRN Reason: dizziness Melatonin (Melatonin 3 Mg Tablet) 6 mg PO BEDTIME PRN PRN Reason: Insomnia Metformin HCl (Metformin Hcl Er 500 Mg Tab.Er.24h) 1,000 mg PO DAILY@1700 [facility] Last Admin: 07/13/24 16:38 Dose: 1,000 mg Documented By: ITZEL Metformin HCl (Metformin Hcl Er 500 Mg Tab.Er.24h) [address] [facility] Last Admin: 07/13/24 08:31 Dose: 500 mg Documented By: ITZEL Metoprolol Tartrate (Metoprolol Tartrate 100 Mg Tablet) [address] [facility]; Protocol Last Admin: 07/13/24 08:32 Dose: 100 mg Documented By: ITZEL Omeprazole (Omeprazole 40 Mg Capsule.Dr) 40 mg PO DAILY@0630 [facility] Last Admin: 07/14/24 06:01 Dose: 40 mg Documented By: SANDI Ondansetron HCl (Ondansetron Hcl 4 Mg/2 Ml Vial) 4 mg IVPUSH Q8H PRN PRN Reason: Nausea and Vomiting Last Admin: 07/12/24 06:37 Dose: 4 mg Documented By: TREMAINE Oseltamivir Phosphate (Oseltamivir Phosphate 75 Mg Capsule) [address] [facility] Stop: 07/16/24 09:01 Last Admin: 07/13/24 20:06 Dose: 75 mg Documented By: SANDI Prednisone (Prednisone 20 Mg Tablet) [address] [facility] Last Admin: 07/13/24 08:32 Dose: 40 mg Documented By: ITZEL Sodium Chloride (0.9 % Sodium Chloride Flush 3 Ml Syringe) [address] [facility] Last Admin: 07/13/24 20:07 Dose: 3 ml Documented By: SANDI Labs 07/14/24 06:00 07/14/24 06:00 Labs: Laboratory Results - last 24 hr 07/13/24 07/13/24 07/13/24 11:26 16:27 19:58 MCV MCH MCHC RDW Plt Count MPV Absolute Nucleated RBC Nucleated RBC % (auto) Anion Gap Estim Creat Clear Calc Estimated GFR POC Glucose 268 H 294 H 318 H Random Glucose Calcium 07/14/24 07/14/24 06:00 07:39 MCV 81.9 MCH 27.3 MCHC 33.3 RDW 12.5 Plt Count 256 MPV 10.7 Absolute Nucleated RBC 0.000 Nucleated RBC % (auto) 0.0 Anion Gap 12 Estim Creat Clear Calc 99.2 Estimated GFR > 60 POC Glucose 83 Random Glucose 100 Calcium 9.2 Microbiology Microbiology Results: Microbiology 07/11/24 21:54 Blood Culture - Preliminary Blood - Venous No growth after 48 hours. 07/11/24 21:45 Blood Culture - Preliminary Blood - Venous No growth after 48 hours. Assessment and Plan (1) Hypertension: Status: Acute Plan 58-year-old female with pertinent history of asthma not on home oxygen, insulin- dependent diabetes mellitus with neuropathy, hypertension, mixed hyperlipidemia, CAD, gastroesophageal reflux disease who presented to the emergency department for evaluation of weakness and cough. Hypotension. Resolved likely from poor po intake s/p IV fluids Acute hypoxemic respiratory failure and viral sepsis due to influenza A leading to asthma exacerbation supplemental oxygen. Scheduled DuoNebs and systemic steroids. Tamiflu. No concern for bacterial superinfection. Defer antibiotics. oob to chair and ambulating Acute lactic acidosis due to hypoxia DM2 ss, metformin, ADA diet CAD On aspirin and statin Diabetic neuropathy Continue gabapentin Hypertension Continue home antihypertensives Gastroesophageal reflux disease On PPI DVT prophylaxis: Lovenox Full code Quality Stroke Does the patient have a stroke diagnosis?: No VTE Prior VTE?: No VTE Risk Level:: Medical - moderate - high VTE Device Contraindication: Treatment Not Indicated VTE Drug Contraindication: N/A - Med Ordered
[2024-07-14] MEDS: Atorvastatin Calcium 80 MG TABLET PO (09:27)
[2024-07-14] MEDS: 0.9 % Sodium Chloride Flush 3 ML SYRINGE IVFLUSH ×3 (09:27→22:14)
[2024-07-14] MEDS: Cyanocobalamin (Vitamin B-12) 1,000 MCG TABLET 1000 MCG PO (09:28)
[2024-07-14] MEDS: Oseltamivir Phosphate 75 MG CAPSULE PO ×2 (09:28→22:12)
[2024-07-14] MEDS: Isosorbide Mononitrate 30 MG TAB.ER.24H PO (09:28)
[2024-07-14] MEDS: Enoxaparin Sodium 40 MG/0.4 ML SYRINGE SUBCUT (09:28)
[2024-07-14] MEDS: Metoprolol Tartrate 100 MG TABLET PO (09:28)
[2024-07-14] MEDS: Loratadine 10 MG TABLET PO (09:28)
[2024-07-14] MEDS: predniSONE 20 MG TABLET 40 MG PO (09:28)
[2024-07-14] MEDS: metFORMIN HCl ER 500 MG TAB.ER.24H PO (09:30)
[2024-07-14 11:19] LABS: Glucose, Whole Blood 196 mg/dL (60-115)
--- NOTE | 2024-07-14 12:04 | MHC.CM.PN ---
EMR REVIEWED AND PER MD ROUNDS, PT IS NOT MEDICALLY CLEARED FOR DC HOME (CONTINUE TO REQUIRE 02) CM WILL CONTINUE TO FOLLOW FOR ANY CHANGE TO DC PLAN/NEEDS.
[2024-07-14] MEDS: Insulin Lispro 100 UNIT/ML 3 ML VIAL SUBCUT ×3 (12:20→22:13)
[2024-07-14 16:26] LABS: Glucose, Whole Blood 229 mg/dL (60-115)
[2024-07-14] MEDS: guaiFENesin LA 600 MG TAB.ER.12H PO ×2 (16:44→22:12)
[2024-07-14] MEDS: metFORMIN HCl ER 500 MG TAB.ER.24H 1000 MG PO (16:44)
[2024-07-14 20:25] LABS: Glucose, Whole Blood 210 mg/dL (60-115)
[2024-07-14] MEDS: Aspirin Enteric Coated 81 MG TABLET.DR PO (22:12)
[2024-07-14] MEDS: Docusate Sodium 100 MG CAPSULE PO (22:12)
[2024-07-14] MEDS: Insulin Glargine,Hum.rec.anlog 100 UNIT/ML 10 ML VIAL 50 UNIT SUBCUT (22:12)
[2024-07-14] MEDS: Gabapentin 100 MG CAPSULE PO (22:12)
[2024-07-14] MEDS: Acetaminophen 325 MG TABLET 650 MG PO (22:20)
[2024-07-15] MEDS: Omeprazole 40 MG CAPSULE.DR PO (05:47)
[2024-07-15 07:36] LABS: Glucose, Whole Blood 108 mg/dL (60-115)
--- NOTE | 2024-07-15 07:36 | PM.DS ---
DS: Providers Provider Date of Service: 07/15/24 Date of admission: 07/12/24 02:06 Date of discharge: 07/15/24 Primary care physician: Dallas Butler MD DS: Diagnosis Discharge Diagnosis (1) Hypertension: Status: Acute DS: Summary Hospital Course Hospital Course: History and physical as per admitting provider. This is a 58-year-old female with pertinent history of asthma not on home oxygen, insulin-dependent diabetes mellitus with neuropathy, hypertension, mixed hyperlipidemia, CAD who presents to the emergency department for evaluation of weakness and cough. Patient states she has been feeling weak and has generalized malaise and fatigue. Also has been having fevers and chills with nonproductive cough and wheezing. Patient had a fall due to weakness where she did strike her head. No loss of consciousness. No dizziness or lightheadedness prior to the fall. No chest pain or palpitations prior to the fall. No jerking movement of extremities. No nausea, vomiting, palpitations, abdominal pain, changes in urinary or bowel habits. In the emergency department, patient tested positive for influenza a and found to be satting 86% on room air. 58-year-old woman treated for acute hypoxemic respiratory failure, viral sepsis secondary to influenza a and asthma exacerbation. Treated with Tamiflu, scheduled DuoNebs and systemic steroids. Antibiotics deferred has no superinfection noted. Courage patient out of bed to chair. Had an episode of hypotension but resolved after IV fluids, likely secondary to poor p.o. intake patient has been feeling unwell. Plan will be for patient to be discharged with 2 more doses of Tamiflu and prednisone taper. Acute lactic acidosis . due to hypoxia DM2. Treated with sliding scale insulin while inpatient. Continue home medications CAD. Continue aspirin and statin Diabetic neuropathy. Continue gabapentin Hypertension. Continue home antihypertensives Gastroesophageal reflux disease. On PPI Time Attestation Discharge Coordination Time (in mins): 40 Quality: Safe Use of Opioids Does Pt have an Active Cancer Diagnosis on the Problem List?: No Quality: Stroke Does the patient have a stroke diagnosis?: No Physical Exam Vital Signs: Vital Signs: Last Vital Signs Temp 98.4 F 07/14/24 23:52 Pulse 82 07/14/24 23:52 Resp 18 07/14/24 23:52 BP 142/78 H 07/14/24 23:52 Pulse Ox 98 07/14/24 23:52 O2 Del Method Nasal Cannula 07/14/24 23:52 O2 Flow Rate 1 07/14/24 23:52 BMI result Body Mass Index 26.7 Appearing in no acute distress head is normocephalic atraumatic eyes pupils are PERRLA sclera is anicteric mouth throat mucous membranes are intact and moist neck is supple no lymphadenopathy, no JVD noted lung sounds are clear to auscultation heart regular rate rhythm, clear S1, S2 positive bowel sounds, abdomen is soft, nontender neuro patient is alert x3, no focal deficits DS: Data Data Completed and Pending Labs on day of discharge: Laboratory Results - last 24 hr 07/14/24 07/14/24 07/14/24 07:39 11:15 16:18 POC Glucose 83 196 H 229 H 07/14/24 20:09 POC Glucose 210 H Preliminary micro results at discharge 07/11/24 21:54 Blood Culture - Preliminary Blood - Venous No growth after 48 hours. 07/11/24 21:45 Blood Culture - Preliminary Blood - Venous No growth after 48 hours. Discharge Plan Discharge Anticipated Discharge Date/Time: 07/15/24 07:34 Patient Disposition: Home Health Service Discharge Diagnosis: Hypoxic respiratory failure Influenza a Referrals: Dallas Butler MD [Primary Care Provider] - 1 Week Discharge Medications: New oseltamivir [Tamiflu] 75 mg Capsule 75 mg PO BID Qty: 2 0RF prednisone 10 mg tablet See Taper PO DIRECTED Qty: 30 0RF Taper: Prednisone 40 mg daily for 3 Days and 0 Hour 30 mg daily for 3 Days and 0 Hour 20 mg daily for 3 Days and 0 Hour 10 mg daily for 3 Days and 0 Hour Rx Instructions: see taper instructions albuterol sulfate 2.5 mg /3 mL (0.083 %) solution for nebulization 2.5 mg inhalation Q4H PRN (Reason: shortness of breath or wheezing) Qty: 180 0RF Continued (DME) CeQur Simplicity 2 unit device See Rx Instructions .Route Qty: 8 11RF Rx Instructions: As directed every 4 days 5 clicks breakfast, 5 clicks lunch and 6 clicks supper Total of 32 units insulin aspart U-100 [Novolog U-100 Insulin aspart] 100 unit/mL solution See Rx Instructions subcut USEASDIRECTD Qty: 20 11RF Patient Comments: 07/12/24: PER PATIENT, SHE USES 10 UNITS IN AM, 8 UNITS WITH LUNCH, AND 10 UNITS WITH DINNER Rx Instructions: 10 units for breakfast (5 clicks on cequr), 10 units for lunch (five clicks on cequr) 12 units for supper (6 clicks) subcutaneously use as directed; (DME) CeQur Simplicity Lead Sprinkler Misc See Rx Instructions .Route Qty: 1 1RF Rx Instructions: As directed celecoxib 200 mg capsule 200 mg PO BID PRN (Reason: for pain) Qty: 60 3RF docusate sodium 100 mg capsule 100 mg PO BEDTIME Qty: 90 3RF acetaminophen 325 mg capsule 650 mg PO Q6H PRN (Reason: pain) Qty: 20 0RF meclizine 25 mg tablet 25 mg PO TID PRN (Reason: dizziness) Qty: 30 0RF cyanocobalamin (vitamin B-12) 1,000 mcg tablet 1,000 mcg PO QAM Trulicity 0.75 mg/0.5 mL pen injector 0.75 mg subcut FR Asmanex HFA 200 mcg/actuation HFA aerosol inhaler 2 puff INHALATION BID metoprolol tartrate 100 mg tablet 100 mg PO DAILY lidocaine [Lidoderm] 5 % adhesive patch,medicated 1 patch topical DAILY PRN (Reason: Pain) Rx Instructions: leave on most painful area for up to 12 hrs insulin degludec [Tresiba FlexTouch U-200] 200 unit/mL (3 mL) insulin pen 65 unit subcut QPM Rx Instructions: 07/12/24: RX REPORTS 65 UNITS DAILY metformin 500 mg Tablet Extended Release 24 Hr 1,000 mg PO DAILY@1700 (DME) subcutaneous insulin pump Misc MISCELLANEOUS Rx Instructions: 10 units in am 8 units with lunch 10 units with dinner atorvastatin 80 mg tablet 80 mg PO DAILY isosorbide mononitrate 30 mg tablet extended release 24 hr 30 mg PO QAM lisinopril 40 mg tablet 40 mg PO DAILY loratadine 10 mg tablet 10 mg PO DAILY aspirin [Adult Low Dose Aspirin] 81 mg tablet,delayed release (DR/EC) 81 mg PO BEDTIME omeprazole 40 mg capsule,delayed release(DR/EC) 40 mg PO DAILY metformin 500 mg tablet extended release 24 hr 500 mg PO DAILY Patient Comments: Per patient, she takes one in the morning and one at 3 PM Rx Instructions: 07/12/24: RX reports 1 tab in AM, 2 tabs in PM gabapentin 100 mg capsule 100 mg PO BEDTIME amlodipine 10 mg tablet 10 mg PO DAILY estradiol [Estrace] 0.01 % (0.1 mg/gram) cream 1 g vaginal 3XW 90 Days Qty: 42.5 3RF Patient Comments: sometimes Rx Instructions: pea-sized amount to urethrae daily times one month and then three times a week thereafter (DME) transport belt See Rx Instructions .Route .MEDSUPPLY Qty: 1 0RF Rx Instructions: As directed (DME) FreeStyle Angélica 3 [place] Misc See Rx Instructions .ROUTE .MEDSUPPLY Qty: 1 0RF Rx Instructions: As directed (DME) FreeStyle Angélica 3 Sensor Device See Rx Instructions .ROUTE .MEDSUPPLY Qty: 2 11RF Rx Instructions: As directed Discharge Orders: Discharge Order (Routine); Ordered 07/15/24 Ordered By: Alvina Perez Diet: Advance to usual diet Activity on Discharge: As tolerated Stand Alone Forms: Patient Portal Discharge page Print Language: [place] Care Plan Goals: Complete steroid taper Complete course of Tamiflu Health Concerns: Hypoxic respiratory failure Influenza a Plan of Treatment: Follow up with primary care provider as needed Take all medications as prescribed Assessment: See discharge summary
[2024-07-15 07:52] VITALS: BP 136/65; PULSE 53; RESP 18; TEMP 36; O2SAT 94
[2024-07-15 08:40] VITALS: PULSE 73; RESP 18; O2SAT 95
[2024-07-15] MEDS: Albuterol/Iprat 2.5/0.5MG 3 ML AMPUL.NEB INHALE (08:40)
[2024-07-15] MEDS: 0.9 % Sodium Chloride Flush 3 ML SYRINGE IVFLUSH (09:17)
[2024-07-15] MEDS: Enoxaparin Sodium 40 MG/0.4 ML SYRINGE SUBCUT (09:17)
[2024-07-15] MEDS: Isosorbide Mononitrate 30 MG TAB.ER.24H PO (09:18)
[2024-07-15] MEDS: Atorvastatin Calcium 80 MG TABLET PO (09:18)
[2024-07-15] MEDS: guaiFENesin LA 600 MG TAB.ER.12H PO (09:18)
[2024-07-15] MEDS: metFORMIN HCl ER 500 MG TAB.ER.24H PO (09:18)
[2024-07-15] MEDS: Loratadine 10 MG TABLET PO (09:18)
[2024-07-15] MEDS: Oseltamivir Phosphate 75 MG CAPSULE PO (09:18)
[2024-07-15] MEDS: Cyanocobalamin (Vitamin B-12) 1,000 MCG TABLET 1000 MCG PO (09:18)
[2024-07-15] MEDS: predniSONE 20 MG TABLET 40 MG PO (09:22)
[2024-07-15] MEDS: Metoprolol Tartrate 100 MG TABLET PO (09:25)
--- NOTE | 2024-07-15 11:16 | P.F2F_ITS ---
Service Date Service Date: 07/15/24 Encounter Date of encounter: 07/15/24 Reasons for Services Signs and symptoms assessed: Influenza a Asthma exacerbation Reason for physical therapy: home safety and mobility Homebound: Leaving the home is medically contraindicated at this time without the asist of a device and/or another person due th the listed conditions above and below. Reason homebound: unsteady gait / fall risk and weakness related to hospital stay Certification: Based on the above findings, I certify that this patient is confined to the home and needs intermittent senior living care, physical therapy and/or speech therapy, or continues to need occupational therapy. The patient is under my care, and I have initiated the establishment of the plan of care. The patient will be followed by a physician who will periodically review the plan of care. Time Spent With Patient Time: Total time managing care of this patient today ____ minutes.
--- NOTE | 2024-07-15 11:33 | MHC.CM.PN ---
DP: PT HAS BEEN MEDICALLY CLEARED FOR DC HOME WITH [facility]. PT IS AGREEABLE TO HOME SERVICES. PT'S FAMILY WILL TRANSPORT.
--- NOTE | 2024-07-15 13:44 | P.CDIM_ITS ---
PROVIDER RESPONSE TEXT: To clarify, the appropriate diagnosis supported by the clinical indicators: Hyperglycemia: possible QUERY TEXT: PHYSICIAN'S DOCUMENTATION REQUEST Date of Query: 07/14/2024 11:09 AM EST Patient Name: Wendy Rivers Admit Date: 07/12/2024 Dear Alvina Perez EMT BASIC, A review of the medical record indicates additional documentation may be needed. Please review below and update the documentation accordingly. Clinical Indicators: LABS: POC glucose 07/13/24 - 318 H DM Type 2 Lantus Based on the above, could you clarify if there is a diagnosis that correlates with these lab findings : Hyperglycemia possible, probable, resolved, etc. Labs indicate a diagnosis of (please specify) Other (explain) Clinically unable to determine (explain) Thank you, Sumi Zavala, CCS, CDIS Use of terms such as suspected, likely, concern for, or probable (associated with a specific diagnosi s that is being evaluated, monitored, or treated as if it exists) are acceptable and can be coded in the inpatient se tting, when documented at the time of discharge. Please use your independent medical judgment in providing your response. THIS QUERY IS PART OF THE PERMANENT MEDICAL RECORD
--- NOTE | 2024-07-15 13:44 | P.CDIM_ITS ---
PROVIDER RESPONSE TEXT: To clarify, the appropriate diagnosis supported by the clinical indicators: Mild intermittent QUERY TEXT: PHYSICIAN'S DOCUMENTATION REQUEST Date of Query: 07/14/2024 08:51 AM EST Patient Name: Wendy Rivers Admit Date: 07/12/2024 Dear Alvina Perez MEDICAL OFFICE SCHEDULER, A review of the medical record indicates additional documentation may be needed. Please review below and update the documentation accordingly. Clinical indicators: Progress notes within the written Plan 3/ - Acute hypoxemic respiratory failure and viral sepsis due to influenza A leading to asthma exacerbation. Supplemental oxygen. Scheduled DuoNebs and systemic steroids. Based on the above, please clarify in the Progress Notes further specificity regarding the type asthm a: Mild intermittent Mild persistent Moderate persistent Severe persistent Exercise induced Other (explain) Clinically unable to determine (explain) Thank you, Sumi Zavala, CCS, CDIS Use of terms such as suspected, likely, concern for, or probable (associated with a specific diagnosi s that is being evaluated, monitored, or treated as if it exists) are acceptable and can be coded in the inpatient se tting, when documented at the time of discharge. Please use your independent medical judgment in providing your response. THIS QUERY IS PART OF THE PERMANENT MEDICAL RECORD
== END 2024-07-15 11:50 | disposition home health service (06) | DRG 720 ==
LOC: HO.ED 22:27 → HO.EDOVER 07-12 02:38 → HO.S3 07-12 13:23
PROVIDERS: Physician Assistant Medical; Admitting Provider Student in an Organized Health Care Education/Training Program; Emergency Provider Internal Medicine; PCP Internal Medicine; Visit Provider Nurse Practitioner Acute Care
DX: A41.89 Other specified sepsis (principal); J96.01 Acute respiratory failure with hypoxia; E87.21 Acute metabolic acidosis; J45.21 Mild intermittent asthma with (acute) exacerbation; E11.42 Type 2 diabetes mellitus with diabetic polyneuropathy; I95.9 Hypotension, unspecified; K21.9 Gastro-esophageal reflux disease without esophagitis; I25.10 Atherosclerotic heart disease of native coronary artery without angina pectoris; J10.1 Influenza due to other identified influenza virus with other respiratory manifestations; E78.2 Mixed hyperlipidemia; E11.65 Type 2 diabetes mellitus with hyperglycemia; I10 Essential (primary) hypertension; Z20.822 Contact with and (suspected) exposure to COVID-19; Z79.4 Long term (current) use of insulin; Z79.84 Long term (current) use of oral hypoglycemic drugs; Z79.82 Long term (current) use of aspirin; Z79.85 Long-term (current) use of injectable non-insulin antidiabetic drugs; Z79.899 Other long term (current) drug therapy
CPT/HCPCS: 0241U; 36415; 70450; 71045; 71275; 72125; 80048; 80053; 80307; 81001; 82947; 83605; 84484; 85025; 85027; 87040; 93005; 94640; 97116; 97161; 99285; J1650; J1885; J2405; J7120

== ENCOUNTER → 2024-07-11 21:12 | Outpatient (BNV) | payer MEDICAID, SELFPAY | PROVIDERS: Admitting Provider Student in an Organized Health Care Education/Training Program; Emergency Provider Internal Medicine; PCP Internal Medicine; Visit Provider Internal Medicine Cardiovascular Disease | DX: R00.0 Tachycardia, unspecified (principal) | CPT/HCPCS: 93010 ==

== ENCOUNTER → 2024-07-11 21:45 | Outpatient (BNV) | payer MEDICAID, SELFPAY | PROVIDERS: Emergency Provider Internal Medicine; PCP Internal Medicine; Visit Provider Specialist | DX: R07.9 Chest pain, unspecified (principal); S00.93XA Contusion of unspecified part of head, initial encounter; M54.2 Cervicalgia | CPT/HCPCS: 70450; 71045; 72125 ==

== ENCOUNTER → 2024-07-12 01:27 | Outpatient (BNV) | payer MEDICAID, SELFPAY | PROVIDERS: Admitting Provider Student in an Organized Health Care Education/Training Program; Emergency Provider Internal Medicine; PCP Internal Medicine; Visit Provider Radiology Diagnostic Radiology | DX: J98.11 Atelectasis (principal); Z87.891 Personal history of nicotine dependence | CPT/HCPCS: 71275 ==

== ENCOUNTER → 2024-07-12 02:06 | Outpatient (BNV) | payer MEDICAID, SELFPAY | PROVIDERS: Admitting Provider Student in an Organized Health Care Education/Training Program; Emergency Provider Internal Medicine; PCP Internal Medicine; Visit Provider Student in an Organized Health Care Education/Training Program | DX: I10 Essential (primary) hypertension (principal) | CPT/HCPCS: 99232; 99239; G0180 ==

== ENCOUNTER 2024-07-30 13:46 | Outpatient (AMB) | payer MEDICAID, SELFPAY ==
--- NOTE | 2024-07-29 13:25 | MHC.OFFVIS ---
Vital Signs 07/30/24 13:57 Height 5 ft 2 in Weight 143 lb 4.807 oz BMI 26.2 BP 126/58 L Blood Pressure Location Rt brachial Position Sitting Pulse 86 Pulse Source Pulse Oximeter Pulse Oximetry (%) 98 Oxygen Delivery Method Room Air Intake Visit Reasons: T2DM Intake Note: Patient presents today for a follow-up on Type 2 Diabetes Mellitus: Last Diabetic eye exam was on: DUE Last Podiatry exam was on: Patient does not see a Agency Director Most recent HbA1c: 12.3%, 07/30/2024 Random Glucose- 380 mg/dL, Today Footwear Machinery Instructor Required: Yes Footwear Machinery Instructor Language: Coater Associate Services: Footwear Machinery Instructor Offered & Declined Footwear Machinery Instructor Name: Daughter Information Interpreted: non-clinical & clinical Accompanied by: Self / Same As Patient Allergies morphine [MORPHINE] Allergy (Intermediate, Verified 07/30/24 14:04) ITCHY, RASH oxycodone Allergy (Verified 07/30/24 14:04) Hives Medication List - Last Reconciled 08/01/24 by Josy Vergara NP acetaminophen 650 mg (2 x 325 mg) PO Q6H PRN albuterol sulfate 2.5 mg (3 mL) inhalation Q4H PRN amlodipine 10 mg PO DAILY aspirin (Adult Low Dose Aspirin) 81 mg PO BEDTIME atorvastatin 80 mg PO DAILY blood-glucose meter,continuous (FreeStyle Angélica 3 [place]) As directed blood-glucose sensor (FreeStyle Angélica 3 Sensor device) As directed celecoxib 200 mg PO BID PRN cyanocobalamin (vitamin B-12) 1,000 mcg PO QAM docusate sodium 100 mg PO BEDTIME dulaglutide (Trulicity) 1.5 mg (0.5 mL) subcut QWEEK 28 days estradiol 0.01%(0.1mg/gram) (Estrace) 1 g vaginal 3XW 90 days gabapentin 100 mg PO BEDTIME insulin aspart U-100 (Novolog FlexPen U-100 Insulin aspart) 12 units (0.12 mL) subcut TID 30 days insulin degludec (Tresiba FlexTouch U-200 insulin) 100 units (0.5 mL) subcut DAILY 30 days isosorbide mononitrate ER 30 mg PO QAM lidocaine 5% (Lidoderm) 1 patch topical DAILY PRN lisinopril 40 mg PO DAILY loratadine 10 mg PO DAILY meclizine 25 mg PO TID PRN metformin ER 1,000 mg PO DAILY@1700 metformin ER 500 mg PO DAILY metoprolol tartrate 100 mg PO DAILY mometasone 200 mcg/actuation (Asmanex HFA) 2 puffs inhalation BID omeprazole 40 mg PO DAILY oseltamivir (Tamiflu) 75 mg PO BID prednisone See Taper mg PO DIRECTED [transport belt As directed] HPI Comments Details: Patient is a 58-year-old female with DM type 2 diagnosed since 1989 who presents for management of diabetes. Patient was last seen 12/19/23 with an A1c of 9.9% and previously by the Endo CASH APPLICATIONS ASSOCIATE with an A1c of 9.5% 2021. A1c 07/30/2024 12.3%. Diabetes medications: Tresiba 100 units (i confirmed several times with patient that she is taking this much which is up from her previous 65 units) NovoLog, 6 units for breakfast, 8 units for lunch and 10 units for supper.. Trulicity 1.5 weekly . Metformin ER 1,000mg BID Readings elevated did not bring in meter, testing infrequently Past medical history: Diabetes type 2 cardiomyopathy hypertension, hyperlipidemia, cardiomyopathy Micro and macrovascular complications: + CVA, + CAD, neuropathy She reports feeling tired and was recently in the ER and found to be anemic. 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 education: none No Nephropathy: 07/14/2024 eGFR>60 01/2022 less than 5 Has neuropathy: Agency Director: yes Ophthalmology evaluation: 07/07 had cataract surgery She is not sure if she has retinopathy Has f/u opth [facility] Medical History Atherosclerotic cardiovascular disease Cardiomyopathy Type 2 diabetes mellitus with diabetic polyneuropathy History of CVA (cerebrovascular accident) Overweight HLD (hyperlipidemia) DM2 (diabetes mellitus, type 2) Asthma Hypertension Depression Myocardial infarction Surgical History Hx of cholecystectomy Hx of section Family History Father No problems noted. Mother No problems noted. Social History Household Members: Family Housing: Apartment Do you presently have visiting nurse or other home services: No Alcohol intake: never Patient Tobacco Use Status: Former Tobacco user service: No Current occupational status: disabled Physical Exam Vital Signs: Last Vital Signs Pulse 86 07/30/24 13:57 BP 126/58 L 07/30/24 13:57 Pulse Ox 98 07/30/24 13:57 Oxygen Delivery Method Room Air 07/30/24 13:57 BMI result Body Mass Index 26.2 Const Other: Absence of Cushingoid features. Absence of acromegalic features. Neck exam reveals nl size thyroid about 15 gms. No thyroid nodules palpable. Heart S1 S2, Reg R/R. No M/R G. Skin exam reveals absence of vitiligo or acanthosis nigricans. Visual exam of foot performed. No ulcerations or open lesions. No inter digit maceration or fissuring. No onychomycosis, no callouses. Sensation intact to monofilament exam. Vibratory sensation is diminshed with 128 Hz tuning fork. Results AMB Hemoglobin A1c AMB Hemoglobin A1c 12.3 % Last Edit by SONYA Denise on 07/30/24 14:13 Results Reviewed Results Reviewed: Laboratory Last Values Glucose (Clinic) 380 mg/dL (60-115) H* 07/30/24 14:03 Hgb A1c (Clinic) 12.3 % (4.0-6.0) H 07/30/24 14:06 Assessment & Plan Assessment & Plan (1) DM2 (diabetes mellitus, type 2): Code(s): E11.9 - Type 2 diabetes mellitus without complications Category: Medical Plan: Type 2 diabetic with polyneuropathy with poor diabetic control. New dosing Tresiba 100 units Novolog 12 units tid trulicity 1.5mg weekly metformin 1000mg bid The patient had an opportunity to ask questions regarding treatment plan. The patient expressed understanding and agreement with the above treatment plan. The patient is aware they should contact our office by phone for worsening glucose readings or for any low blood sugars which may warrant a change in diabetes medication. Compliance is encouraged with medications and any followup testing/consults which may have been ordered. Orders: Orders AMB Hemoglobin A1c 07/30/24 E11.42 - Type 2 diabetes mellitus with diabetic polyneuropathy Medications: New dulaglutide (Trulicity) 1.5 mg (0.5 mL) subcut QWEEK 28 days 2 mL 11RF insulin degludec (Tresiba FlexTouch U-200 insulin) 100 units (0.5 mL) subcut DAILY 30 days 15 mL 11RF insulin aspart U-100 (Novolog FlexPen U-100 Insulin aspart) 12 units (0.12 mL) subcut TID 30 days 12 mL 11RF Refilled blood-glucose meter,continuous (FreeStyle Angélica 3 [place]) As directed 1 ea 0RF blood-glucose sensor (FreeStyle Angélica 3 Sensor device) As directed 2 ea 11RF Discontinued insulin aspart U-100 (Novolog U-100 Insulin aspart) Discontinued Reason: Duplicate 10 units for breakfast (5 clicks on cequr), 10 units for lunch (five clicks on cequr) 12 units for supper (6 clicks) subcutaneously use as directed; 20 mL 11RF diabetic supplies, miscellan. (CeQur Simplicity Manager Technical Support) Discontinued Reason: Doctor's Order As directed 1 ea 1RF bolus insulin pump, 200 unit (CeQur Simplicity) Discontinued Reason: Doctor's Order As directed every 4 days 5 clicks breakfast, 5 clicks lunch and 6 clicks supper Total of 32 units 8 ea 11RF E11.42 - Type 2 diabetes mellitus with diabetic polyneuropathy Patient Instructions: The patient was counseled to achieve a target A1C of 7% (154 avg). Fasting blood sugars should be 90-130 in the morning and less than 180 two hours after meals. Reviewed the relationship between poor diabetic control and the development of complications. Check your feet daily looking for any signs of infection, drainage, redness, ulceration and seek medical attention if this occurs. Break in shoes gradually and do not wear open-toed shoes or walk stocking footed or barefooted. Take 15 carb carbohydrate grams to treat a low sugar (3-4 glucose tablets, half a glass of juice or 15 carbohydrate grams of soft candy such as gummie snacks). Recheck your sugar in 15 minutes and re-treat again with 15 carbohydrate grams if low or still with symptoms. Do not drive a car or operate machinery if you do not know what your blood sugar is, if it is low or in excess of 300. Coding Level of Care Code Est Pt Level 4 (40976) Complex EM visit Add On G2211 Diagnoses DM2 (diabetes mellitus, type 2) E11.9 Time Spent (min) 30 Comment Time spent reviewing labs/provider notes, face to face, chart doc
[2024-07-30 13:57] VITALS: BP 126/58; PULSE 86; O2SAT 98; BMI 26.2
[2024-07-30 14:08] LABS: Glucose, Whole Blood 380 mg/dL (60-115)
--- OUTSIDE RECORDS SUMMARY | 2024-07-30 16:12 | XMS_ITS | Encounter Summary ---
Author Organization [employer] Address [address] [place] [address] Care Team Providers Care Deposition Operator Name Role Phone Dallas Menard MD Primary Care Provide r Encounter Details Date Type Department Care Team (Late st Contact Info) Description 08/14/2022 Orders Only [facility] [address] [place], [place] [phone] Jennifer Lopez LPN Social History Tobacco Use Types Packs/Day Years Used Date Smoking Tobacco: Never Smokeless Tobacco: Never Depression Answer Date Recorded Patient Health Questionnaire-9 Score 5 05/30/2022 Depression Answer Date Recorded Patient Health Questionnaire-2 Score 2 05/30/2022 Comments Unknown Sex and Gender Information Value Date Recorded Sex Assigned at Female 03/13/2022 10:15 AM EDT Legal Sex Female 10:15 AM EDT Gender Identity Female 03/13/2022 10:15 AM EDT Sexual Orientation Straight 03/13/2022 10 :15 AM EDT documented as of this encounter Plan of Treatment Not on file documented as of this encounter Visit Diagnoses Not on filedocumented in this encounter Additional Health Concerns Assessment Noted Time PHQ-9 Depression Total Score: 5 05/30/19 23 11:51 AM EST documented as of this encounter Care Teams Deposition Operator Relationship Specialty Start Date End Date Dallas Menard MD [address] [place] [address] [phone] PCP - General Internal Medicine 08/11/15 documented as of this encounter
--- OUTSIDE RECORDS SUMMARY | 2024-07-30 16:12 | XMS_ITS | Encounter Summary ---
Author Organization [employer] Address [address] [place] [address] Care Team Providers Care Rn Maternal Child Name Role Phone Dallas Menard MD Primary Care Provide r Reason for Visit * Reason Onset Date Comments Appointment Request 07/10/2024 Encounter Details Date Type Department Care Team ([facility] st Contact Info) Description 07/10/[address] [facility] MEDICINE [address] [place], [place] [phone] Dallas Menard MD [address] [place] [address] Appointment Request Social History Tobacco Use Types Packs/Day Years Used Date Smoking Tobacco: Never Passive Smoke Exposure: Never Smokeless Tobacco: Never Alcohol Use Standard Drinks/Week Comments Not Currently 0 (1 standard drink = 0.6 oz pur e alcohol) Depression Answer Date Recorded Patient Health Questionnaire-9 Score 14 10/18/2023 Patient Health Questionnaire-9 Score 14 10/18/2023 Last PHQ-9: Questionnaire Data Not on file 0 10/18/2023 Housing Stability Answer Date Recorded What is your housing situation today? I have delonte zurita 07/19/[address] you li ve. Do you have problems with any of the following? None of the above 07/19/2023 Food Insecurity Answer Date Recorded Within the past 12 months, y ou worried that your food would run out before you got money to buy more: Never True 07/19/2023 Within the past 12 months,th e food you bought just didn't last and you didn't have enough money to get more: Never True 11/2023 Transportation Answer Date Recorded In the past 12 months, has l ack of transportation kept you from medical appts, meetings, work or from getting things needed for daily living? No 07/19/2023 Utilities Answer Date Recorded In the past 12 months, has t he electric, gas, oil or water company threatened to shut off services in your home? No 07/19/2023 Depression Answer Date Recorded Patient Health Questionnaire-2 Score 4 10/18/2023 Comments Unknown Sex and Gender Information Value Date Recorded Sex Assigned at Female 03/13/2022 10:15 AM EDT Legal Sex Female 10:15 AM EDT Gender Identity Female 03/13/2022 10:15 AM EDT Sexual Orientation Straight 03/13/2022 10 :15 AM EDT documented as of this encounter Miscellaneous Notes * Telephone Encounter - Malini Miles - 07/10/2024 10:08 AM EST Tc from pt requesting appointment , senior copywriter advised theres no soon appointments available as if any symptoms senior copywriter could assist with triage nurse as pt denied. documented in this encounter Plan of Treatment Not on file documented as of this encounter Visit Diagnoses Not on filedocumented in this encounter Additional Health Concerns Assessment Noted Time PHQ-9 Depression Total Score: 14 024 3:35 PM EDT documented as of this encounter Care Teams Rn Maternal Child Relationship Specialty Start Date End Date Dallas Menard MD [address] [place] [id number] PCP - General Internal Medicine 08/11/15 documented as of this encounter
--- OUTSIDE RECORDS SUMMARY | 2024-07-30 16:12 | XMS_ITS | Encounter Summary ---
Author Organization [employer] Address [address] [place] [address] Care Team Providers Care Contact Center Representative Name Role Phone Dallas Menard MD Primary Care Provide r Encounter Details Date Type Department Care Team ([facility] st Contact Info) Description 06/23/2024 Refill [facility] MEDICINE [address] [place], [place] [phone] Dallas Menard MD [address] [place], [place] [phone] Hypertension associated with diabetes (CMS/HCC) (CMS/HCC) Social History Tobacco Use Types Packs/Day Years [...] your housing situation today? I have delonte sing 07/19/[address] you li [...] documented as of this encounter Visit Diagnoses Diagnosis Hypertension associated with diabetes (CMS/HCC) (CMS/HCC) Unspecified essential hypertension documented in this encounter Additional Health Concerns Assessment Noted Time PHQ-9 Depression Total Score: 14 024 3:35 PM EDT documented as of this encounter Care Teams Contact Center Representative Relationship Specialty Start Date End Date Dallas Menard MD [address] [place] [id number] PCP - General Internal Medicine 08/11/15 documented as of this encounter
--- OUTSIDE RECORDS SUMMARY | 2024-07-30 16:12 | XMS_ITS | Encounter Summary ---
Author Organization [employer] Address [address] [place] [address] Care Team Providers Care Fibrous Plasterer Name Role Phone Dallas Menard MD Primary Care Provide r Reason for Referral * Consultation (Routine) - Authorized Specialty Diagnoses / Procedures Referred By Colin t Referred To Contact Psychiatry / Behavioral Health Diagnoses Severe recurrent major depression with psychotic features (CMS/HCC) Dallas Menard MD [address] [place] [id number] Phone: tel: fax: Referral ID Status Reason Start Date Expiration Date Visits Requested Visits Authorized [id number] Authorized Specialty Services Required 07/29/2024 07/29/2025 1 1 * Consultation (Routine) - Closed Specialty Diagnoses / Procedures Referred By Contac t Referred To Contact Behavioral Health Diagnoses Severe recurrent major depression with psychotic features (CMS/HCC) Dallas Menard MD [address] [place] [address] Phone: tel: fax: Referral ID Status Reason Start Date Expiration Date V isits Requested Visits Authorized [id number] Closed Specialty Services Required 07/29/2024 07/29/2025 1 1 * Imaging (Routine) - Closed Specialty Diagnoses / Procedures Referred By Contac t Referred To Contact Radiology Diagnoses Breast cancer screening by mammogram Procedures BI Mammogram Screening Tomosynthesis Bilateral Dallas Menard MD [address] [place] [address] Phone: tel: fax: [address] Phone: tel: fax: Referral ID Status Reason Start Date Expiration Date Visits Re quested Visits Authorized [id number] Closed 07/29/2024 07/29/2025 1 1 Reason for Visit * Reason Comments Hypertension Encounter Details Date Type Department Care Team (Latest Contact Info) Description 07/29/2024 9:30 AM EDT Office Visit [facility] [address] [place] [address] Dallas Menard MD [address] [place] [address] Hospital discharge follow-up (Primary Dx); Primary osteoarthritis of left knee; Closed displaced fracture of greater tuberosity of right humerus with routine healing, subsequent encounter; Type 2 diabetes mellitus with diabetic polyneuropathy, with long-term current use of insulin (CMS/HCC); Dysuria; Chronic abdominal pain; Retinal vein occlusion of left eye, unspecified retinal vein; Essential hypertension; Cardiomyopathy, unspecified type (CMS/HCC); Breast cancer screening by mammogram; Severe recurrent major depression with psychotic features (CMS/HCC); Mild intermittent asthma with acute exacerbation; Subacute cough; Frequent falls Social History Tobacco Use Types Packs/Day Years Used Date Smoking Tobacco: Never Passive Smoke Exposure: Never Smokeless Tobacco: Never Alcohol Use Standard Drinks/Week Comments Not Currently 0 (1 standard drink = 0.6 oz pur e alcohol) Depression Answer Date Recorded Patient Health Questionnaire-9 Score 12 07/29/2024 Patient Health Questionnaire-9 Score 12 07/29/2024 Last PHQ-9: Questionnaire Data Not on file 0 07/29/2024 Housing Stability Answer Date Recorded What is your housing situation today? I have delonte zurita 07/29/[address] you li ve. Do you have problems with any of the following? None of the above 07/29/2024 Food Insecurity Answer Date Recorded Within the past 12 months, y ou worried that your food would run out before you got money to buy more: Never True 07/29/2024 Within the past 12 months,th e food you bought just didn't last and you didn't have enough money to get more: Never True Transportation Answer Date Recorded In the past 12 months, has l ack of transportation kept you from medical appts, meetings, work or from getting things needed for daily living? No 07/29/2024 Utilities Answer Date Recorded In the past 12 months, has t he electric, gas, oil or water company threatened to shut off services in your home? I am not sure 07/29/2024 Depression Answer Date Recorded Patient Health Questionnaire-2 Score 2 07/29/2024 Internet Access Answer Date Recorded Internet Access Q1 Yes 07/29/2024 Internet Access Q2 Not on file 07/29/2024 Comments Unknown Sex and Gender Information Value Date Recorded Sex Assigned at Female 03/13/2022 10:15 AM EDT Legal Sex Female 10:15 AM EDT Gender Identity Female 03/13/2022 10:15 AM EDT Sexual Orientation Straight 03/13/2022 10 :15 AM EDT documented as of this encounter Last Filed Vital Signs Vital Sign Reading Time Taken Comments Blood Pressure 138/72 07/29/2024 12:46 PM EDT Pulse 82 07/29/2024 9:29 AM EDT Temperature 35.8 ??C (96.4 ??F) 07/29/2024 9:29 AM ED T Respiratory Rate 22 07/29/2024 9:29 AM EDT Oxygen Saturation 97% 07/29/2024 9:29 AM EDT Inhaled Oxygen Concentration - - Weight 63.9 kg (140 lb 12.8 oz) 07/29/2024 9:29 AM EDT Height - - Body Mass Index 24.94 02/21/2024 1:17 PM EDT documented in this encounter Progress Notes * Dallas Romero MD - 07/29/2024 9:30 AM EDT SUBJECTIVE Hamzah Rivers is a 58 y.o. female who presents for Hypertension. Hypertension This is a chronic problem. Pertinent negatives include no chest pain, headaches or shortness of breath. Cough This is a recurrent problem. The current episode started in the past 7 days. The cough is Productive of purulent sputum. Pertinent negatives include no chest pain, fever, headaches, sore throat or shortness of breath. Review of Systems Constitutional: Negative for fever. HENT: Negative for sore throat. Respiratory: Positive for cough. Negative for shortness of breath. Cardiovascular: Negative for chest pain. Gastrointestinal: Negative for abdominal pain. Neurological: Negative for headaches. Allergies Allergen Reactions Morphine Swelling Oxycodone Rash OBJECTIVE Vitals: 07/29/24 0929 07/29/24 1246 BP: (!) 156/62 138/72 BP Location: Right arm Left arm Patient Position: Sitting Sitting BP Cuff Size: Adult Pulse: 82 Resp: 22 Temp: 96.4 ??F (35.8 ??C) TempSrc: Temporal SpO2: 97% Weight: 140 lb 12.8 oz (63.9 kg) Physical Exam Vitals reviewed. Constitutional: Appearance: Normal appearance. HENT: Head: Normocephalic and atraumatic. Right Ear: External ear normal. Left Ear: External ear normal. Nose: Nose normal. Mouth/Throat: Mouth: Mucous membranes are moist. Eyes: Conjunctiva/sclera: Conjunctivae normal. Cardiovascular: Rate and Rhythm: Normal rate and regular rhythm. Pulmonary: Effort: Pulmonary effort is normal. Breath sounds: Normal breath sounds. No wheezing, rhonchi or rales. Skin: General: Skin is warm. Neurological: Mental Status: She is alert. Mental status is at baseline. Assessment/Plan Problem List Items Addressed This Visit Hospital discharge follow-up - Primary Pt here for a HDF Admitted to [facility] from 07/12/2024-07/15/2024 she presented c/o fevers, weakness, and cough. Patient had a fall with headstrike, due to weakness.In the ER pt tested positive for influenza A, and initiated on Tamiflu, Duonebs, and steroids. Labswere significant for acute lactic acidosis due to hypoxia, which further resolved. Patient had episodes of hypotension, which resolved with IV fluids. Patient discharged to home to complete course ofTamiflu and prednisone. Here for a follow up Relevant Orders POCT HGB A1C (Completed) POCT Glucose (Completed) Primary osteoarthritis of left knee Seen by Ortho 04/09/2024 Displaced fracture of greater tuberosity of right humerus with routine healing Seen by Ortho 03/21/2024 after seen in the ER. Recommended NSAIDS and PT Type 2 diabetes mellitus with neurologic complication (CMS/HCC) Patient is here for a f/u DM uncontrolled. She tells me she missed 2 appointments with endocrinology Hgb A1c 07/29/2024: 14 from 10.2 from 8.8 from 7.4 She is on a regimen of: Tresiba 65 units sc in pm ( Administered by her TUBE MAKING MACHINE OPERATOR ) and NovoLog now 8 in AM, 6 at lunch and 10 at dinner as well as Trulicity 0.75 mg q week ( lowered due to pt c/o anorexiawith higher dose) and Metformin 500 mg po BID. Last seen Endocrinology 02/05/2024 She has a Medbox. Plan: I contacted endocrinology they agreed to see her tomorrow at 2:00 PM. Pt's daycare manager promised to bring her to her appointment. As per Endocrinology Microalbumin from 01/13/2022 was 0.3 Eye Exam 03/23/2023 No retinopathy Foot check risk of One Pt already on ASA 81 mg po daily. f/u with me in 3 months Pt was previously referred to our health promotion educator as well, but she documented her unsuccessful efforts to help her and at this moment there was nothing else she could offer her Relevant Orders Albumin, Random Urine W/Creatinine Lactic Acid Dysuria Pt with recurrent UTIs seen by Urology 05/28/2024 Chronic abdominal pain Currently not complaining. Pt with Hx of chronic abdominal pain. CT scan of her abdomen and pelvis (07/24/2012) that aside froma dilated CBD (thought to be due to cholecystectomy) was otherwise unrevealing. pt has a Hx.of chronic diffuse abdominal pain for which she follows at [facility] Gastroenterology. Their impression is that she likely has gastroparesis, IBS?. Pt treated with Omeprazole daily and Reglan. Pt had a previous CTof her abdomen and pelvis that was done on 01/31/2012 and raised a question of an enlarged left ovary for which US was recommended. She had a pelvic US on 04/28/2012 and it was completely normal. Bothovaries were normal. Of note pt finally had a colonoscopy at [facility] on 02/02/2012 that showed internal h emorrhoids only. Pt was seen here at our [facility] after a recent ED visit pt c/o abdominal pain CT of abdomen on 03/18/2024 Showed: Incidental note made of bronchial thickening with some mucous plugging at the lung bases, mild hepatomegaly, cholecystectomy and mild degenerative changes in the spine. Retinal vein occlusion of left eye Pt seen in the ER on 05/15/1012 after pt apparently thought that some oil landed on her left eye while frying something. He was seen at [facility] and subsequently refereed to Opthalmology specialist (Dr Varghese) who diagnosed her with retinal vein occlusion and sent her to a retina specialist. she was last seen by Dr Shepherd who gave her laser photocoagulation. [facility] of [facility], last seen 03/2023 Essential hypertension Pt is here for a f/u BP controlled She is on a regimen of: Lisinopril 40 mg po daily, metoprolol [id number] daily and Amlodipine 10mg po daily ( started by Cardiology ). She carries a diagnosis of Non ischemic cardiomyopathy with a Lexiscan in 06/2010 EF 40-45 % thoughtto be related to uncontrolled HTN due to medication non compliance with no symptoms of CHF For now will continue with current medical regimen. She had a Cardiac Cath due to persistent elevated troponin that showed No significant CAD Most recent electrolytes, Bun and Creatinine done on: Lab Results Component Value Date NA 130 (L) 07/11/2024 NA 137 04/18/2024 K 4.4 07/11/2024 K 4.1 04/18/2024 CL 95 (L) 07/11/2024 CL 104 04/18/2024 BUN 12 07/11/2024 BUN 13 04/18/2024 CREATININE 0.78 07/11/2024 CREATININE 0.64 04/18/2024 were wnl. Will repeat Plan: No changes on regimen patient advised to adhere to a low sodium diet, encouraged about medication compliance, counseled about weight loss. Cardiomyopathy (CMS/HCC) Patient used to be under the care of Resolution Agent Dr. Jimenes, last seen 08/30/2022, She was discharged from their practice due to non compliance. importance of medication adherence discussed patient to avoid excess salt and fluid intake Dr. Jimenes recommended aggressive blood pressure control and to repeat ECHO prior to next visit in view of a Normal Cath. Last ECHO 09/07/2022 showed low normal EF 50-55% Pt's TUBE MAKING MACHINE OPERATOR tells me the client relation specialist gave her an appointment in September Severe recurrent major depression with psychotic features (CMS/HCC) Patient is no longer seeing a psychotherapist. She used to see one Patient denies any suicidal ideation or thoughts, Patient has crisis numbers and knows to use them if needed. Today she was evaluated by our [facility] clinician and referred to [facility] Relevant Orders Referral to Behavioral Health Referral to Behavioral Health Psychiatry Mild intermittent asthma with acute exacerbation Pt with c/o cough productive of yellow sputum. Recently admitted to Hospital with Influenza On exam, she is afebrile, lungs CTA B, normal pulse oxymetry Rapid Flu and Covid Neg Etiology ? Bronchitis ? Given risk factors will Rx a Z-pack and supportive measures F/uif worsening or no improvement Relevant Medications guaiFENesin (Robitussin) 100 MG/5ML liquid azithromycin (Zithromax Z-Saul) 250 MG tablet Subacute cough Relevant Orders POCT Rapid Covid-19 BinaxNOW (Completed) POCT Rapid Influenza B HENRIQUEZ ID NOW (Completed) POCT Rapid Influenza A HENRIQUEZ ID NOW (Completed) Frequent falls Here for a f/u Pt with a Hx of Syncope with multiple admissions to the Hospital For years she has presented with similar symptoms and has had an extensive work up including an ECHO, EEG, Cardiac Cath , CT of brain Etiology ? Vasovagal vs cardiogenic. Seizure like activity ? Pt was sent for Cardiology eval for event monitor to r/o arrythmia which has not been suggestive ofthat. Pt is an extremely poor historian Pt was evaluated at [facility] Neurology. Notes mentioned that she was orthostatic ( 20 mmhg dropin SBP when going from supine to standing, although her pulse did not change from 108. they recommended EMG to look for a small fiber polyneuropathy as the cause for her orthosis. On his last note from 2018 he mentioned that he was able to reproduce her syncope prodrome by having her hyperventilate. 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 Pt's family requested a second opinion by a neurologist. They are concerned about MS She was seen 01/09/2023 Neurology started patient on Amitriptyline and recommended an MRI of brain Pt was referred back to Neurology at [facility] and was seen 02/22/2024 by hamzah De León NP She ordered B12, MMA, copper, Vit E and CRP and an MRI of her brain. She was going to consider EMG or EEG if initial testing was unrevealing. She was supposed to follow up in 3 months Other Visit Diagnoses Breast cancer screening by mammogram Relevant Orders BI Mammogram Screening Tomosynthesis Bilateral documented in this encounter Miscellaneous Notes * Assessment & Plan Note - Dallas Romero MD - 07/29/2024 5:04 PM EDT Associated Problem(s): Frequent falls Here for a f/u Pt with a Hx of Syncope with multiple admissions to the Hospital For years she has presented with similar symptoms and has had an extensive work up including an ECHO, EEG, Cardiac Cath , CT of brain Etiology ? Vasovagal vs cardiogenic. Seizure like activity ? Pt was sent for Cardiology eval for event monitor to r/o arrythmia which has not been suggestive ofthat. Pt is an extremely poor historian Pt was evaluated at [facility] Neurology. Notes mentioned that she was orthostatic ( 20 mmhg dropin SBP when going from supine to standing, although her pulse did not change from 108. they recommended EMG to look for a small fiber polyneuropathy as the cause for her orthosis. On his last note from 2019 he mentioned that he was able to reproduce her syncope prodrome by having her hyperventilate. 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 Pt's family requested a second opinion by a neurologist. They are concerned about MS She was seen 01/09/2023 Neurology started patient on Amitriptyline and recommended an MRI of brain Pt was referred back to Neurology at [facility] and was seen 02/22/2024 by hamzah De León NP She ordered B12, MMA, copper, Vit E and CRP and an MRI of her brain. She was going to consider EMG or EEG if initial testing was unrevealing. She was supposed to follow up in 3 months * Assessment & Plan Note - Dallas Romero MD - 07/29/2024 9:33 AM EDT Associated Problem(s): Mild intermittent asthma with acute exacerbation Pt with c/o cough productive of yellow sputum. Recently admitted to Hospital with Influenza On exam, she is afebrile, lungs CTA B, normal pulse oxymetry Rapid Flu and Covid Neg Etiology ? Bronchitis ? Given risk factors will Rx a Z-pack and supportive measures F/uif worsening or no improvement * Assessment & Plan Note - Dallas Romero MD - 07/29/2024 9:33 AM EDT Associated Problem(s): Severe recurrent major depression with psychotic features (CMS/HCC) Patient is no longer seeing a psychotherapist. She used to see one Patient denies any suicidal ideation or thoughts, Patient has crisis numbers and knows to use them if needed. Today she was evaluated by our [facility] clinician and referred to [facility] * Assessment & Plan Note - Dallas Romero MD - 07/29/2024 9:31 AM EDT Associated Problem(s): Cardiomyopathy (CMS/HCC) Patient used to be under the care of Resolution Agent Dr. Jimenes, last seen 08/30/2022, She was discharged from their practice due to non compliance. importance of medication adherence discussed patient to avoid excess salt and fluid intake Dr. Jimenes recommended aggressive blood pressure control and to repeat ECHO prior to next visit in view of a Normal Cath. Last ECHO 09/07/2022 showed low normal EF 50-55% Pt's TUBE MAKING MACHINE OPERATOR tells me the client relation specialist gave her an appointment in September * Assessment & Plan Note - Dallas Romero MD - 07/29/2024 9:29 AM EDT Associated Problem(s): Essential hypertension Pt is here for a f/u BP controlled She is on a regimen of: Lisinopril 40 mg po daily, metoprolol [id number] daily and Amlodipine 10mg po daily ( started by Cardiology ). She carries a diagnosis of Non ischemic cardiomyopathy with a Lexiscan in 06/2010 EF 40-45 % thoughtto be related to uncontrolled HTN due to medication non compliance with no symptoms of CHF For now will continue with current medical regimen. She had a Cardiac Cath due to persistent elevated troponin that showed No significant CAD Most recent electrolytes, Bun and Creatinine done on: Lab Results Component Value Date NA 130 (L) 07/11/2024 NA 137 04/18/2024 K 4.4 07/11/2024 K 4.1 04/18/2024 CL 95 (L) 07/11/2024 CL 104 04/18/2024 BUN 12 07/11/2024 BUN 13 04/18/2024 CREATININE 0.78 07/11/2024 CREATININE 0.64 04/18/2024 were wnl. Will repeat Plan: No changes on regimen patient advised to adhere to a low sodium diet, encouraged about medication compliance, counseled about weight loss. * Assessment & Plan Note - Dallas Romero MD - 07/29/2024 9:28 AM EDT Associated Problem(s): Retinal vein occlusion of left eye Pt seen in the ER on 05/15/1012 after pt apparently thought that some oil landed on her left eye while frying something. He was seen at [facility] and subsequently refereed to Opthalmology specialist (Dr Varghese) who diagnosed her with retinal vein occlusion and sent her to a retina specialist. she was last seen by Dr Shepherd who gave her laser photocoagulation. [facility], last seen 03/2023 * Assessment & Plan Note - Dallas Romero MD - 07/29/2024 9:27 AM EDT Associated Problem(s): Chronic abdominal pain Currently not complaining. Pt with Hx of chronic abdominal pain. CT scan of her abdomen and pelvis (07/24/2012) that aside froma dilated CBD (thought to be due to cholecystectomy) was otherwise unrevealing. pt has a Hx.of chronic diffuse abdominal pain for which she follows at [facility] Gastroenterology. Their impression is that she likely has gastroparesis, IBS?. Pt treated with Omeprazole daily and Reglan. Pt had a previous CTof her abdomen and pelvis that was done on 01/31/2012 and raised a question of an enlarged left ovary for which US was recommended. She had a pelvic US on 04/28/2012 and it was completely normal. Bothovaries were normal. Of note pt finally had a colonoscopy at [facility] on 02/02/2012 that showed internal h emorrhoids only. Pt was seen here at our [facility] after a recent ED visit pt c/o abdominal pain CT of abdomen on 03/18/2024 Showed: Incidental note made of bronchial thickening with some mucous plugging at the lung bases, mild hepatomegaly, cholecystectomy and mild degenerative changes in the spine. * Assessment & Plan Note - Dallas Romero MD - 07/29/2024 9:25 AM EDT Associated Problem(s): Dysuria Pt with recurrent UTIs seen by Urology 05/28/2024 * Assessment & Plan Note - Dallas Romero MD - 07/29/2024 9:24 AM EDT Associated Problem(s): Type 2 diabetes mellitus with neurologic complication (CMS/HCC) Patient is here for a f/u DM uncontrolled. She tells me she missed 2 appointments with endocrinology Hgb A1c 07/29/2024: 14 from 10.2 from 8.8 from 7.4 She is on a regimen of: Tresiba 65 units sc in pm ( Administered by her TUBE MAKING MACHINE OPERATOR ) and NovoLog now 8 in AM, 6 at lunch and 10 at dinner as well as Trulicity 0.75 mg q week ( lowered due to pt c/o anorexiawith higher dose) and Metformin 500 mg po BID. Last seen Endocrinology 02/05/2024 She has a Medbox. Plan: I contacted endocrinology they agreed to see her tomorrow at 2:00 PM. Pt's daycare manager promised to bring her to her appointment. As per Endocrinology Microalbumin from 01/13/2022 was 0.3 Eye Exam 03/23/2023 No retinopathy Foot check risk of One Pt already on ASA 81 mg po daily. f/u with me in 3 months Pt was previously referred to our health promotion educator as well, but she documented her unsuccessful efforts to help her and at this moment there was nothing else she could offer her * Assessment & Plan Note - Dallas Romero MD - 07/29/2024 9:00 AM EDT Associated Problem(s): Displaced fracture of greater tuberosity of right humerus with routine healing Seen by Ortho 03/21/2024 after seen in the ER. Recommended NSAIDS and PT * Assessment & Plan Note - Dallas Romero MD - 07/29/2024 8:58 AM EDT Associated Problem(s): Primary osteoarthritis of left knee Seen by Ortho 04/09/2024 * Assessment & Plan Note - Dallas Romero MD - 07/29/2024 8:52 AM EDT Associated Problem(s): Hospital discharge follow-up Pt here for a HDF Admitted to [facility] from 07/12/2024-07/15/2024 she presented c/o fevers, weakness, and cough. Patient had a fall with headstrike, due to weakness.In the ER pt tested positive for influenza A, and initiated on Tamiflu, Duonebs, and steroids. Labswere significant for acute lactic acidosis due to hypoxia, which further resolved. Patient had episodes of hypotension, which resolved with IV fluids. Patient discharged to home to complete course ofTamiflu and prednisone. Here for a follow up documented in this encounter Plan of Treatment Scheduled Orders Name Type Priority Associated Diagnoses Orde r Schedule Albumin, Random Urine W/Creatinine Lab Routine Type 2 diabetes mellitus with diabetic polyneuropathy, with long-term current use of insulin (CMS/HCC) Ordered: 07/29/2024 BI Mammogram Screening Tomosynthesis Bilateral Imaging Routine Breast cancer screening by mammogram Ordered: 07/29/2024 Lactic Acid Lab Routine Type 2 diabetes mellitus with diabetic polyneuropathy, with long-term current use of insulin (CMS/HCC) Expected: 07/29/2024 (Approximate), Expires: 07/29/2025 Scheduled Referrals Name Type Priority Associated Diagnoses Order Schedule Referral to Behavioral Health Outpatient Referral Routine Severe recurrent major depression with psychotic features (CMS/HCC) Expected: 07/29/2024 (Approximate), Expires: 07/29/2025 Referral to Behavioral Health Psychiatry Outpatient Referral Routine Severe recurrent major depression with psychotic features (CMS/HCC) Expected: 07/29/2024 (Approximate), Expires: 07/29/2025 documented as of this encounter Procedures Procedure Name Priority Date/Time Associated Diagnosis Comments POCT INFLUENZA B (ID NOW RAPID MOLECULAR) Routine 07/29/2024 10:29 AM EDT Subacute cough POCT INFLUENZA A (ID NOW RAPID MOLECULAR) Routine 07/29/2024 10:29 AM EDT Subacute cough POCT RAPID COVID ANTIGEN Routine 07/29/2024 10:27 AM EDT Subacute cough POCT GLYCATED HEMOGLOBIN, TOTAL Routine 07/29/2024 9:32 AM EDT Hospital discharge follow-up POCT GLUCOSE Routine 07/29/2024 9:31 AM EDT Hospital discharge follow-up documented in this encounter Results * POCT Rapid Influenza A HENRIQUEZ ID NOW (07/29/2024 10:29 AM EDT) Influenza A Negative Negative, Indeterminate [facility] QC Media Lot # [id number] [facility] Lot# Expiration Date , [facility] Swab 07/29/2024 10:2 9 AM EDT us Dallas Romero MD POINT OF CARE TEST EN TER/EDIT ORDERABLES Final Result [facility] [address] [place] [phone] * POCT Rapid Influenza B HENRIQUEZ ID NOW (07/29/2024 10:29 AM EDT) Influenza B Negative Negative, Indeterminate [facility] QC Media Lot # [id number] [facility] Lot# Expiration Date [facility] Swab 07/29/2024 10:2 9 AM EDT Dallas Romero MD POINT OF CARE TEST EN TER/EDIT ORDERABLES Final Result [facility] [address] [place] [phone] * POCT Rapid Covid-19 BinaxNOW (07/29/2024 10:27 AM EDT) [facility] Rapid COVID Ag Negative QC Media Lot # [id number] Lot# Expiration Date [id number] Swab 07/29/2024 10:2 7 AM EDT Dalals Romero MD POINT OF CARE TEST EN TER/EDIT ORDERABLES Final Result * (ABNORMAL) POCT HGB A1C (07/29/2024 9:32 AM EDT) Pathologist [facility] Hemoglobin A1C 14.0(A) 4.0 - 6.0 % QC Media Lot # [id number] Lot# Expiration Date Blood 07/29/2024 9:32 AM EDT Dallas Romero MD POINT OF CARE TEST EN TER/EDIT ORDERABLES Final Result * (ABNORMAL) POCT Glucose (07/29/2024 9:31 AM EDT) Pathologist [facility] Glucose Blood, POC 292(A) 60 - 200 mg/dL QC Media Lot # [id number] Lot# Expiration Date ,025 Blood Capillary blood specimen / Unknown 07/29/2024 9:31 AM EDT Dallas Romero MD POINT OF CARE TEST EN TER/EDIT ORDERABLES Final Result documented in this encounter Visit Diagnoses Diagnosis Hospital discharge follow-up- Primary Other follow-up examination Primary osteoarthritis of left knee Closed displaced fracture of greater tuberosity of right humerus with routine healing, subsequent encounter Type 2 diabetes mellitus with diabetic polyneuropathy, with long-term current use of insulin (CMS/HCC) Dysuria Chronic abdominal pain Abdominal pain, unspecified site Retinal vein occlusion of left eye, unspecified retinal vein Essential hypertension Unspecified essential hypertension Cardiomyopathy, unspecified type (CMS/HCC) Breast cancer screening by mammogram Severe recurrent major depression with psychotic features (CMS/HCC) Major depressive disorder, recurrent episode, severe, specified as with psychotic behavior Mild intermittent asthma with acute exacerbation Subacute cough Frequent falls documented in this encounter Additional Health Concerns Assessment Noted Time PHQ-9 Depression Total Score: 12 07/29/ 025 10:47 AM EDT documented as of this encounter Care Teams Fibrous Plasterer Relationship Specialty Start Date End Date Dallas Menard MD [address] [place] [id number] PCP - General Internal Medicine 08/11/15 documented as of this encounter
--- OUTSIDE RECORDS SUMMARY | 2024-07-30 16:12 | XMS_ITS | Encounter Summary ---
Author Organization [employer] Address [address] [facility] [address] 7t [place] [address] Care Team Providers Care Glass Silverer Name Role Phone Dallas Menard MD Primary Care Provide r Encounter Details Date Type Department Care Team ([facility] st Contact Info) Description 06/23/2024 Telephone [facility] MEDICINE [address] [place], [place] [phone] Dallas Menard MD [address] [place], [place] [phone] Social History Tobacco Use Types Packs/Day Years [...] documented as of this encounter Care Teams Glass Silverer Relationship Specialty Start Date End Date Dallas Menard MD [address] [place] [id number] PCP - General Internal Medicine 08/11/15 documented as of this encounter
--- OUTSIDE RECORDS SUMMARY | 2024-07-30 16:12 | XMS_ITS | Encounter Summary ---
Author Organization [employer] Address [address] [facility] 7t [place] [address] Care Team Providers Care Supervisor Agricultural Education Name Role Phone Dallas Menard MD Primary Care Provide r Encounter Details Date Type Department Care Team (Late st Contact Info) Description 07/20/2022 Orders Only [facility] MEDICINE [address] [place], [place] [phone] Christie Strauss LPN Social History Tobacco Use Types Packs/Day [...] documented as of this encounter Care Teams Supervisor Agricultural Education Relationship Specialty Start Date End Date Dallas Menard MD 230 [place], [place] [phone] PCP - General Internal Medicine 08/11/15 documented as of this encounter
--- OUTSIDE RECORDS SUMMARY | 2024-07-30 16:12 | XMS_ITS | Encounter Summary ---
Author Organization [employer] Address [address] [facility] 7t [place] [address] Care Team Providers Care Order Manager Name Role Phone Dallas Menard MD Primary Care Provide r Encounter Details Date Type Department Care Team (Late st Contact Info) Description 10/16/2022 Orders Only [facility] MEDICINE 230 [place], [place] [phone] Christie Strauss LPN Social History Tobacco Use [...] documented as of this encounter Care Teams Order Manager Relationship Specialty Start Date End Date Dallas Menard MD 230 [place], [place] [phone] PCP - General Internal Medicine 08/11/15 documented as of this encounter
--- OUTSIDE RECORDS SUMMARY | 2024-07-30 16:12 | XMS_ITS | Encounter Summary ---
Author Organization [employer] Address [address] [facility] 7t [place] [address] Care Team Providers Care Auto Painter Helper Name Role Phone Dallas Menard MD Primary Care Provide r Reason for Visit * Reason Comments Med Refill Encounter Details Date Type Department Care Team ([facility] st Contact Info) Description 07/20/2022 Refill [facility] MEDICINE 230 [place], [place] [phone] Alyce Murphy ANP [address] [place] [address] Social History Tobacco Use Types Packs/Day Years [...] documented as of this encounter Care Teams Auto Painter Helper Relationship Specialty Start Date End Date Dallas Menard MD [address] [place], [place] [phone] PCP - General Internal Medicine 08/11/15 documented as of this encounter
--- OUTSIDE RECORDS SUMMARY | 2024-07-30 16:12 | XMS_ITS | Encounter Summary ---
Author Organization [employer] Address [address] [facility] [address] [place] [address] Care Team Providers Care Gang Supervisor Pipe Lines Name Role Phone Dallas Menard MD Primary Care Provide r Reason for Visit * Reason Comments Med Refill Encounter Details Date Type Department Care Team ([facility] st Contact Info) Description 07/10/2024 Refill [facility] MEDICINE 230 [place], [place] [phone] Dallas Menard MD [address] [place], [place] [phone] Mild intermittent asthma without complication Social History Tobacco Use Types Packs/Day Years [...] as of this encounter Visit Diagnoses Diagnosis Mild intermittent asthma without complication documented in this encounter Additional Health Concerns Assessment Noted Time PHQ-9 Depression Total Score: 14 024 3:35 PM EDT documented as of this encounter Care Teams Gang Supervisor Pipe Lines Relationship Specialty Start Date End Date Dallas Menard MD [address] [place] [address] PCP - General Internal Medicine 08/11/15 documented as of this encounter
--- OUTSIDE RECORDS SUMMARY | 2024-07-30 16:12 | XMS_ITS | Encounter Summary ---
Author Organization [employer] Address [address] [facility] 7t [place] [address] Care Team Providers Care Centrifugal Wax Molder Name Role Phone Dallas Menard MD Primary Care Provide r Reason for Visit * Reason Onset Date Comments Nurse Triage 04/21/2024 Encounter Details Date Type Department Care Team ([facility] st Contact Info) Description 04/21/2024 Telephone [facility] MEDICINE [address] [place], [place] [phone] Dallas Menard MD [address] [place] [address] Nurse Triage Social History Tobacco Use Types Packs/Day Years [...] encounter Miscellaneous Notes * Telephone Encounter - Loretta Duke RN - 04/21/2024 10:05 AM EST Triage call with [facility] [place] [id number] [place]. Pt TEOFILO Diaz takes call for Pt. Pt was seen in [facility] 04/18/24 due to fall and discovered UTI. (reportis on the chart). Pt continues to take cefuroxime axetil 250mg po bid for the 7 days as directed. Pt is drinking adequate liquids. Pt ambulates with a cane and due to weakness in bilateral lower extremities fell. Pt didn't hit head. Pt reports left sided pain still. Pt is advised to take tylenol for pain. Pt does take ASA 81 mg daily. Pt is given ASK apt for ED follow up with Dr. Lewis 04/30/24@ 1130am. Insurance is verified as active prior to booking. Pt is advised to come to [facility] if pain isnot effected by tylenol. Protocol Used: Falls and Falling (Adult) Protocol-Based Disposition: See in Office or Video Visit within 2 Weeks Positive Triage Question: * Fall and went to emergency department for evaluation or treatment * All higher-acuity triage questions were negative Care Advice Discussed: * Reasons To Call Back - You become worse. * Telephone Encounter - Robert Colby - 04/21/2024 9:29 AM EST Patient calling to report ED visit on : Date: 04/18/24 Hospital: [facility] ED Seen for: Fell Symptomatic Yes Pt was seen due to falling . Er did lab work and seen she had a UTI so supplied pt with antibiotics. But did not supply patient with pain meds. Pt reporting left side pain from shoulder radiating towards left side back . documented in this encounter Plan of Treatment Not on file documented as of this encounter Visit Diagnoses Not on filedocumented in this encounter Additional Health Concerns Assessment Noted Time PHQ-9 Depression Total Score: 14 024 3:35 PM EDT documented as of this encounter Care Teams Centrifugal Wax Molder Relationship Specialty Start Date End Date Dalals Menard MD [address] [place] [address] PCP - General Internal Medicine 08/11/15 documented as of this encounter
--- OUTSIDE RECORDS SUMMARY | 2024-07-30 16:12 | XMS_ITS | Encounter Summary ---
Author Organization [employer] Address [address] [facility] [address] 7[address] [place] [address] Care Team Providers Care Employment Officer Name Role Phone Dallas Menard MD Primary Care Provide r Encounter Details Date Type Department Care Team (Latest Contact Info) Description 07/29/2024 Travel Social History Tobacco Use Types Packs/Day Years [...] Noted Time PHQ-9 Depression Total Score: 12 025 10:47 AM EDT documented as of this encounter Care Teams Employment Officer Relationship Specialty Start Date End Date Dallas Menard MD [address] [place] [address] PCP - General Internal Medicine 08/11/15 documented as of this encounter
--- OUTSIDE RECORDS SUMMARY | 2024-07-30 16:12 | XMS_ITS | Encounter Summary ---
Author Organization [employer] Address [address] [facility] 7t [place] [address] Care Team Providers Care Loom Tuner Name Role Phone Dallas Menard MD Primary Care Provide r Reason for Visit * Reason Onset Date Comments Appointment Request 07/31/2022 Encounter Details Date Type Department Care Team ([facility] st Contact Info) Description 07/31/2022 Telephone [facility] MEDICINE 230 [place], [place] [phone] Dallas Menard MD [address] [place], [place] [phone] Appointment Request Social History Tobacco Use Types [...] encounter Miscellaneous Notes * Telephone Encounter - Tyree Bennett - 07/31/2022 9:28 AM EDT Tc from pt requesting an appt with provider. Pt was unclear in why appt was wanted. Please contact pt at [phone] documented in this encounter Plan of Treatment Not on file documented as of this encounter Visit Diagnoses Not on filedocumented in this encounter Additional Health Concerns Assessment Noted Time PHQ-9 Depression Total Score: 5 05/30/19 23 11:51 AM EST documented as of this encounter Care Teams Loom Tuner Relationship Specialty Start Date End Date Dallas Menard MD [address] [place] [address] PCP - General Internal Medicine 08/11/15 documented as of this encounter
--- OUTSIDE RECORDS SUMMARY | 2024-07-30 16:12 | XMS_ITS | Encounter Summary ---
Author Organization [employer] Address [address] [facility] [address] 7[address] [place] [address] Care Team Providers Care Microfiche Camera Operator Name Role Phone Dallas Menard MD Primary Care Provide r Encounter Details Date Type Department Care Team ([facility] st Contact Info) Description 07/15/2024 Telephone [facility] MEDICINE 230 [place], [place] [phone] Dallas Menard MD 230 [place], [place] [phone] Social History Tobacco Use Types Packs/Day Years [...] encounter Miscellaneous Notes * Telephone Encounter - Nell Gannon - 07/15/2024 10:25 AM EST Pt no showed to apt on 07/15/2024 letter will be sent out documented in this encounter Plan of Treatment Not on file documented as of this encounter Visit Diagnoses Not on filedocumented in this encounter Additional Health Concerns Assessment Noted Time PHQ-9 Depression Total Score: 14 024 3:35 PM EDT documented as of this encounter Care Teams Microfiche Camera Operator Relationship Specialty Start Date End Date Dallas Menard MD [address] [place] [address] PCP - General Internal Medicine 08/11/15 documented as of this encounter
--- OUTSIDE RECORDS SUMMARY | 2024-07-30 16:12 | XMS_ITS | Encounter Summary ---
Author Organization [employer] Address [address] [facility] [address]t [place] [address] Care Team Providers Care Hydraulic Operator Name Role Phone Dallas Menard MD Primary Care Provide r Reason for Visit * Reason Comments Med Refill Encounter Details Date Type Department Care Team ([facility] st Contact Info) Description 05/09/2024 Refill [facility] MEDICINE 230 [place], [place] [phone] Dallas Menard MD 230 [place], [place] [phone] Chronic abdominal pain Social History Tobacco Use Types Packs/Day Years [...] enough money to get more: Never True 03/ 11/2023 Transportation Answer Date Recorded In the [...] as of this encounter Visit Diagnoses Diagnosis Chronic abdominal pain Abdominal pain, unspecified site documented in this encounter Additional Health Concerns Assessment Noted Time PHQ-9 Depression Total Score: 14 024 3:35 PM EDT documented as of this encounter Care Teams Hydraulic Operator Relationship Specialty Start Date End Date Dallas Menard MD 230 [place] [address] PCP - General Internal Medicine 08/11/15 documented as of this encounter
--- OUTSIDE RECORDS SUMMARY | 2024-07-30 16:12 | XMS_ITS | Encounter Summary ---
Author Organization [employer] Address [address] [facility] 7t [place] [address] Care Team Providers Care Clinical Science Consultant Name Role Phone Dallas Menard MD Primary Care Provide r Reason for Visit * Reason Onset Date Comments Chart Prep 07/23/2024 Encounter Details Date Type Department Care Team ([facility] st Contact Info) Description 07/23/2024 Telephone [facility] MEDICINE 230 [place], [place] [phone] Dallas Menard MD [address] [place] [address] Chart Prep Social History Tobacco Use Types Packs/Day Years [...] encounter Miscellaneous Notes * Telephone Encounter - Latia Leyva [place] - 07/23/2024 9:36 AM EDT Chart Prep Labs: not done Images: not applicable Vaccines due: Covid Due, Hep B Due, and Shingles in pharmacy Due Referrals: Radiology Completed Screenings: Colonoscopy , Mammogram, and Eye Exam Overdue care gaps: A1C, Glucose, Sbirt, SDOH, PHQ-9, and Oral Health Chart prep for upcoming appt with Dr.Esparza grier. LB documented in this encounter Plan of Treatment Not on file documented as of this encounter Visit Diagnoses Not on filedocumented in this encounter Additional Health Concerns Assessment Noted Time PHQ-9 Depression Total Score: 14 024 3:35 PM EDT documented as of this encounter Care Teams Clinical Science Consultant Relationship Specialty Start Date End Date Dallsa Menard MD [address] [place] [phone] PCP - General Internal Medicine 08/11/15 documented as of this encounter
--- OUTSIDE RECORDS SUMMARY | 2024-07-30 16:12 | XMS_ITS | Encounter Summary ---
Author Organization [employer] Address [address] [facility] 7t [place] [address] Care Team Providers Care Stain Remover Name Role Phone Dallas Menard MD Primary Care Provide r Reason for Visit * Reason Onset Date Comments Durable Medical Equipment 07/21/2024 Encounter Details Date Type Department Care Team ([facility] st Contact Info) Description 07/21/2024 Telephone [facility] MEDICINE 230 [place], [place] [phone] Dallas Menard MD [address] [place], [place] [phone] Durable Medical Equipment Social History Tobacco Use Types Packs/Day Years [...] encounter Miscellaneous Notes * Telephone Encounter - Ella De Jesus - 07/25/2024 12:19 PM EDT RX for nebulizer signed and faxed to [facility] . Confirmation received and sent to scan. If patient calls to check status on above, please advise them to contact [facility] at [phone]. * Telephone Encounter - Ella De Jesus - 07/22/2024 2:30 PM EDT DME RX for nebulizer generated and placed on providers desk for signature. * Telephone Encounter - Umu Adams - 07/21/2024 2:00 PM EDT Tc from pt relative Emily requesting a new new nebulizer machine. Emily stated her old one no longer works. Requesting message be sent urgent. Denied triage. If any questions contact [phone] documented in this encounter Plan of Treatment Not on file documented as of this encounter Visit Diagnoses Not on filedocumented in this encounter Additional Health Concerns Assessment Noted Time PHQ-9 Depression Total Score: 14 024 3:35 PM EDT documented as of this encounter Care Teams Stain Remover Relationship Specialty Start Date End Date Dallas Menard MD [address] [place] [id number] PCP - General Internal Medicine 08/11/15 documented as of this encounter
--- OUTSIDE RECORDS SUMMARY | 2024-07-30 16:12 | XMS_ITS | Encounter Summary ---
Author Organization [employer] Address [address] [facility] [address] [place] [address] Care Team Providers Care Water Sander Name Role Phone Dallas Menard MD Primary Care Provide r Encounter Details Date Type Department Care Team (Late st Contact Info) Description 07/11/2024 Orders Only GENERIC EXTERNAL DATA DEPARTMENT Provider, Generic External Data Social History Tobacco Use Types Packs/Day Years [...] on file documented as of this encounter Procedures Procedure Name Priority Date/Time Associated Diagnosis Comments CTA CHEST PE PROTOCAL Routine 07/12/2024 2:[address] CERVICAL SPINE WO CONTRAST Routine 07/12/2024 12:[address] HEAD WO CONTRAST Routine 07/12/2024 1 2:15 AM EST XR CHEST 1 VIEW Routine 07/11/2024 10:16 PM EST LACTIC ACID Routine 07/11/2024 9:45 PM EST HIGH SENSITIVITY TROPONIN I Routine 07/11/2024 9:43 PM EST URINALYSIS, COMPLETE, WITH REFLEX TO CULTURE Routine 07/11/2024 9:43 PM EST SARS COV2/INFLUENZA A/B AND RSV RNA QL NAAT Routine 07/11/2024 9:43 PM EST DRUG MONITOR, PANEL 1, SCREEN, URINE Routine 07/11/2024 9:43 PM EST CBC WITH AUTO DIFFERENTIAL Routine 07/11/2024 9:43 PM EST COMPREHENSIVE METABOLIC PANEL Routine 07/11/2024 9:43 PM EST GLUCOSE, WHOLE BLOOD Routine 07/11/2024 9:15 PM EST documented in this encounter Results * CTA Chest PE Protocal (07/12/2024 2:30 AM EST) Anatomical Region Laterality Modality Body, Chest Computed Tomogra phy 07/12/2024 2:30 AM EST Narrative 07/12/2024 2:31 AM EST ? [facility] ?[address] ?[place] [address] ? CT Scan Report ? Signed ? Patient: Tita,Wendy ?MR#: [id number] ?? 241 ? : 1965 ?Acct:[id number] ? Age/Sex: 58 / F ?ADM Date: 07/11/24 ? Loc: HO.ED ? Attending Dr: ? Ordering Physician: Franci Ramos ?? Date of Service: 07/12/24 ?? Procedure(s): CT angio chest PE protocol ?? Accession Number(s): [id number] ? cc: Dallas Butler MD; Franci Ramos ? Report Number: ?? [id number]: Total DLP = ??398.00 mGy-cm ? CLINICAL HISTORY: hypoxia, SOB ? CT angiography chest with contrast. 3D Postprocessing. ? Comparison: CT/PA/SR - CT CHEST WO IV CON - 03/18/24 19:33 EST ? Findings: ?? Motion artifact limits evaluation of some of the subsegmental pulmonary ?? arteries in the lower lungs. There is otherwise no evidence of a pulmonary ?? embolism. There is mild cardiomegaly. Thoracic aorta is normal in diameter ?? without dissection. There are no enlarged lymph nodes. ? There is subsegmental bibasilar atelectasis. Lungs appear otherwise clear ?? allowing for limitation of motion artifact. Trachea and central bronchi ?? are widely patent. ? There are chronic left rib fractures. There is no acute fracture or ?? suspicious lytic or sclerotic lesion. ? Limited images of the upper abdomen demonstrate no acute findings. ? IMPRESSION: ?? Motion artifact limits evaluation of some of the subsegmental pulmonary ?? arteries. Otherwise no evidence of a pulmonary embolism. ? This document has been electronically signed by: Reza Blanchard MD on ?? 07/12/2024 02:30:06 ? Dictated By: ?Reza Blanchard MD ? Signed By: ?<Electronically signed by Reza Blanchard MD in OV> ? 07/12/24230 ? DD/ 9 ? TD/TT: 07/12/24229 ? Dental Office Coordinator: ? Procedure Note Donotuseinterpreter, Image - 07/12/[address] [place] [address] [address] Scan Report Signed Patient: Wendy RiversMR#: [id number] 241 : 1965Acct:[id number] Age/Sex: 58 / FADM Date: 07/11/24 Loc: HO.ED Attending Dr: Ordering Physician: Franci Ramos Date of Service: 07/12/24 Procedure(s): CT angio chest PE protocol Accession Number(s): [id number] cc: Dallas Butler MD; Franci Ramos Report Number: [id number]: Total DLP = 398.00 mGy-cm CLINICAL HISTORY: hypoxia, SOB CT angiography chest with contrast. 3D Postprocessing. Comparison: CT/PA/SR - CT CHEST WO IV CON - 03/18/24 19:33 EST Findings: Motion artifact limits evaluation of some of the subsegmental pulmonary arteries in the lower lungs. There is otherwise no evidence of a pulmonary embolism. There is mild cardiomegaly. Thoracic aorta is normal in diameter without dissection. There are no enlarged lymph nodes. There is subsegmental bibasilar atelectasis. Lungs appear otherwise clear allowing for limitation of motion artifact. Trachea and central bronchi are widely patent. There are chronic left rib fractures. There is no acute fracture or suspicious lytic or sclerotic lesion. Limited images of the upper abdomen demonstrate no acute findings. IMPRESSION: Motion artifact limits evaluation of some of the subsegmental pulmonary arteries. Otherwise no evidence of a pulmonary embolism. This document has been electronically signed by: Reza Blanchard MD on 07/12/2024 02:30:06 Dictated By: Reza Blanchard MD Signed By: <Electronically signed by Reza Blanchard MD in OV> 07/12/24230 DD/ 9 TD/TT: 07/12/24229 Dental Office Coordinator: [facility] External Provider IMG CT PROCEDURES Final Result * CT Cervical Spine w/o Contrast (07/12/2024 12:16 AM EST) Anatomical Region Laterality Modality Spine, C-spine Computed Tomogra phy 07/12/2024 12:1 6 AM EST Narrative 07/12/2024 12:17 AM EST ? [facility] ?[address] ?[place] [address] ? CT Scan Report ? Signed ? Patient: Rivers,Wendy ?MR#: [id number] ?? 241 ? : 1965 ?Acct:[id number] ? Age/Sex: 58 / F ?ADM Date: 07/11/24 ? Loc: HO.ED ? Attending Dr: ? Ordering Physician: Ricci Cardenas ?? Date of Service: 07/11/24 ?? Procedure(s): CT cervical spine wo IV con ?? Accession Number(s): [id number] ? cc: Dallas Butler MD; Ricci Cardenas ? Report Number: ?? [id number]: Total DLP = ??296.00 mGy-cm ? CLINICAL HISTORY: trauma ? CT cervical spine without contrast ? Comparison: 03/18/2024 ? Findings: ? No acute fracture or dislocation is demonstrated. ?? Posterior alignment is normal throughout. ?? No significant degenerative change noted. ?? No radiopaque foreign bodies noted. ? Impression: ? No acute processes ? This document has been electronically signed by: John Santos MD on ?? 07/12/2024 00:16:58 ? Dictated By: ?John Santos MD ? Signed By: ?<Electronically signed by John Santos MD in OV> ? 07/12/247 ? DD/ ? TD/TT: 07/12/246 ? Dental Office Coordinator: ? Procedure Note Gena Redding - 07/12/[address] [address] [address] Scan Report Signed Patient: Wendy RiversMR#: [id number] 241 : 1965Acct:[id number] Age/Sex: 58 / FADM Date: 07/11/24 Loc: HO.ED Attending Dr: Ordering Physician: Ricci Cardenas Date of Service: 07/11/24 Procedure(s): CT cervical spine wo IV con Accession Number(s): [id number] cc: Dallas Butler MD; Ricci Cardenas Report Number: [id number]: Total DLP = 296.00 mGy-cm CLINICAL HISTORY: trauma CT cervical spine without contrast Comparison: 03/18/2024 Findings: No acute fracture or dislocation is demonstrated. Posterior alignment is normal throughout. No significant degenerative change noted. No radiopaque foreign bodies noted. Impression: No acute processes This document has been electronically signed by: John Santos MD on 07/12/2024 00:16:58 Dictated By: John Santos MD Signed By: <Electronically signed by John Santos MD in OV> 07/12/2416 DD/ TD/TT: 07/12/24 001 Dental Office Coordinator: [facility] External Provider IMG CT PROCEDURES Final Result * CT Head w/o Contrast (07/12/2024 12:15 AM EST) Anatomical Region Laterality Modality Head, Neck Computed Tomogra phy 07/12/2024 12:1 5 AM EST Narrative 07/12/2024 12:16 AM EST ? [facility] ?[address] ?[place] [address] ? CT Scan Report ? Signed ? Patient: Rivers,Wendy ?MR#: [id number] ?? 241 ? : 1965 ?Acct:[id number] ? Age/Sex: 58 / F ?ADM Date: 02/28/25 ? Loc: HO.ED ? Attending Dr: ? Ordering Physician: Ricci Cardenas ?? Date of Service: 07/11/24 ?? Procedure(s): CT head/brain wo IV con ?? Accession Number(s): [id number] ? cc: Dallas Butler MD; Ricci Cardenas ? Report Number: ?? [id number]: Total DLP = ??658.00 mGy-cm ? CLINICAL HISTORY: trauma ? CT head without contrast ? Comparison: 03/18/2024 ? Findings: ? No intracranial mass, midline shift, hydrocephalus, or acute hemorrhage. ?? No acute process in sinuses or mastoids. No acute bony abnormality. ? Impression: ? No acute intracranial process ? This document has been electronically signed by: John Santos MD on ?? 07/12/2024 00:15:14 ? Dictated By: ?John Santos MD ? Signed By: ?<Electronically signed by John Santos MD in OV> ? 07/12/24 0016 ? DD/ ? TD/TT: 07/12/2414 ? Dental Office Coordinator: ? Procedure Note Donalexandriakennyelijah, Image - 07/12/[address] [place] [address] [address] Scan Report Signed Patient: Wendy RiversMR#: [id number] 241 : 1965Acct:[id number] Age/Sex: 58 / FADM Date: 07/11/24 Loc: HO.ED Attending Dr: Ordering Physician: Ricci Cardenas Date of Service: 07/11/24 Procedure(s): CT head/brain wo IV con Accession Number(s): [id number] cc: Dallas Butler MD; Ricci Cardenas Report Number: [id number]: Total DLP = 658.00 mGy-cm CLINICAL HISTORY: trauma CT head without contrast Comparison: 03/18/2024 Findings: No intracranial mass, midline shift, hydrocephalus, or acute hemorrhage. No acute process in sinuses or mastoids. No acute bony abnormality. Impression: No acute intracranial process This document has been electronically signed by: John Santos MD on 07/12/2024 00:15:14 Dictated By: John Santos MD Signed By: <Electronically signed by John Santos MD in OV> 07/12/2415 DD/ TD/TT: 07/12/2414 Dental Office Coordinator: us [facility] External Provider IMG CT PROCEDURES Final Result * XR Chest 1 View (07/11/2024 10:16 PM EST) Anatomical Region Laterality Modality Chest Radiographic Radha ging 07/11/2024 10:1 6 PM EST Narrative 07/11/2024 10:18 PM EST ? [facility] ?[address] ?[place] [address] ?XRay Report ? Signed ? Patient: Rivers,Wendy ?MR#: [id number] ?? 241 ? : 1965 ?Acct:[id number] ? Age/Sex: 58 / F ?ADM Date: 07/11/24 ? Loc: HO.ED ? Attending Dr: ? Ordering Physician: Generic ED Physician ?? Date of Service: 07/11/24 ?? Procedure(s): XR chest 1V ?? Accession Number(s): [id number] ? cc: Dallas Bulter MD; Generic ED Physician ? CLINICAL HISTORY: chest pain ? 1 view chest x-ray ? Comparison: 10/02/2023, 01/14/2021 ? Findings: ?? Portions of the exam are obscured by overlying material. ?? The lungs are clear. ?? Normal size heart. ?? No acute fracture. ? IMPRESSION: ?? 1. No acute findings. ? This document has been electronically signed by: Hany White MD on ?? 07/11/2024 22:16:33 ? Dictated By: ?Hany White MD ? Signed By: ?<Electronically signed by Hany White MD in OV> ?07/11/24 2217 ? DD/ 15 ? TD/TT: 07/11/242215 ? Dental Office Coordinator: ? Procedure Note Vahid, Gena - 07/11/[address] [address] XRay Report Signed Patient: Wendy RiversMR#: [id number] 241 : 1965Acct:[id number] Age/Sex: 58 / FADM Date: 07/11/24 Loc: HO.ED Attending Dr: Ordering Physician: Glynn ED Physician Date of Service: 07/11/24 Procedure(s): XR chest 1V Accession Number(s): [id number] cc: Dallas Butler MD; Generic ED Physician CLINICAL HISTORY: chest pain 1 view chest x-ray Comparison: 10/02/2023, 01/14/2021 Findings: Portions of the exam are obscured by overlying material. The lungs are clear. Normal size heart. No acute fracture. IMPRESSION: 1. No acute findings. This document has been electronically signed by: Hany White MD on 07/11/2024 22:16:33 Dictated By: Hany White MD Signed By: <Electronically signed by Hany White MD in OV> 07/11/242216 DD/ 15 TD/TT: 07/11/242215 Dental Office Coordinator: [facility] External Provider IMG XR PROCEDURES Final Result * (ABNORMAL) Lactic Acid (07/11/2024 9:45 PM EST) Pathologist [facility] Lactic Acid 2.6(HH) 0.5 - 2.0 mmol/L [facility] Comment:Critical value for t est(s): LACTIC ACID Results called toand read back by: ANNE Person calling: [email or web address] Date:07/11/24 Time:2218 07/11/2024 9:45 PM EST 07/11/2024 9:49 PM EST Generic External Data Provider LAB BLOOD ORDERAB LES Final Result [facility] [address] [place] [phone] * (ABNORMAL) SARS-CoV-2 RNA, Influenza A/B, and RSV RNA, Ql NAAT (07/11/2024 9:43 PM EST) [facility] Influenza A PCR POSITIVE(A) Negative [facility] Influenza B PCR NEGATIVE Negative [facility] Resp Syncy Virus RNA Qual PCR NEGATIVE Negative [facility] SARS COV2 PCR NEGATIVE Negative [facility] Comment:All test results mus t be correlated with clinical findings.Negative results do not preclude SARS-CoV2, influenza Avirus, influenza B virus and/or RSV infectionand should not be used as the sole basis for treatment orother patient management decisions. Negative results must becombined with clinical observations, patient history, andepidemiological information.This test has not been evaluated for monitoring treatment ofinfection.This test has been authorized by the FDA under an EmergencyUse Authorization (EUA) for use by authorized laboratories.Testing performed on the [employer] GeneXpert utilizingreal-time RT-PCR.All SARS CoV2 and positive influenza A/B results arereported to [facility]. 07/11/2024 9:43 PM EST 07/11/2024 9:49 PM EST [place] External Data Provider LAB MICROBIOLOGY - GENERAL ORDERABLES Final Result Performing Organization Address [facility] Co de Phone Number [facility] [address] [place] [phone] * (ABNORMAL) High Sensitivity Troponin I (07/11/2024 9:43 PM EST) Pathologist [facility] TROPONIN I HIGH SENSITIVITY 22.2(H) <3.5 - 17.0 ng/L [facility] Comment:The Farias high sens itivity Troponin-I results should beused in conjunction with other diagnostic information suchas ECG, clinical observations and information, and patientsymptoms to aid in the diagnosis of [place]. 07/11/2024 9:43 PM EST 07/11/2024 9:49 PM EST [place] External Data Provider LAB BLOOD ORDERAB LES Final Result Performing Organization Address [facility] Co de Phone Number [facility] [address] [place] [phone] * (ABNORMAL) Comprehensive Metabolic Panel (07/11/2024 9:43 PM EST) Pathologist [facility] Sodium 130(L) 135 - 145 mmol/L [facility] Potassium 4.4 3.3 - 5.1 mmol/L [facility] Chloride 95(L) 96 - 108 mmol/L [facility] Carbon Dioxide 19(L) 22 - 29 mmol/L [facility] Anion Gap 20 12 - 20 [facility] Urea Nitrogen (BUN) 12 9 - 16 mg/dL [facility] Creatinine, Serum 0.78 0.5 - 1.4 mg/dL [facility] Creatinine Clr Calc Pharmacy 68.7 [facility] Comment:Provided height and weight: 162.56 cm,63.503 kg.eGFR (calculated from the MDRD study equation) and eCrCl(calculated from the Cockcroft-Gault equation) are based ondifferent parameters and may not yield comparable results.If eCrCl result is absurd, please check patient'sheight/weight. Estimated Glomerular Filt Rate >60 [facility] Comment:Chronic Kidney Disea se: Estimated GFR < 60 mL/min/1.53a8Qvwght Kidney Disease: Estimated GFR < 15 mL/min/1.73m2 Glucose 497(HH) 60 - 115 mg/dL [facility] Comment:Critical value for t est(s): GLUCOSE Results called to jenny back by: ANNE Person calling:[email or web address] Date: 07/11/24Time:2209 Calcium 9.6 8.4 - 10.2 mg/dL [facility] Bilirubin, Total 1.2(H) 0.0 - 1.0 mg/dL [facility] Aspartate Amino Transferase 16 5 - 31 U/L [facility] Alanine Aminotransferase 14 0 - 31 U/L [facility] Total Protein 8.2(H) 6.5 - 8.0 g/dL [facility] Albumin Level 4.1 3.5 - 5.0 g/dL [facility] Alkaline Phosphatase 105 39 - 117 U/L [facility] 07/11/2024 9:43 PM EST 07/11/2024 9:49 PM EST us Generic External Data Provider LAB BLOOD ORDERAB LES Final Result [facility] [address] [place] [phone] * Drug Monitoring, Panel 1, Screen, Urine (07/11/2024 9:43 PM EST) Opiate Screen Urine Not Detected Not Detect [facility] Comment:Opiate cut-off is 30 0 ng/mL.Positive results are unconfirmed and should not be used fornon-medical purposes. Barbiturates, Urine Not Detected Not Detect [facility] Comment:Barbiturate cut-off is 200 ng/mL.Positive results are unconfirmed and should not be used fornon-medical purposes. Phencyclidine Screen Urine Not Detected Not Detect [facility] Comment:Phencyclidine cut-of f is 25 ng/mL.Positive results are unconfirmed and should not be used fornon-medical purposes. Amphetamine Screen Urine Not Detected Not Detect [facility] Comment:Amphetamine cut-off is 1000 ng/mL.Positive results are unconfirmed and should not be used fornon-medical purposes. Benzodiazepines Screen Urine Not Detected Not Detect [facility] Comment:Benzodiazepine cut-o ff is 200 ng/mL.Positive results are unconfirmed and should not be used fornon-medical purposes. Cocaine Screen Urine Not Detected Not Detect [facility] Comment:Cocaine cut-off is 3 00 ng/mL.Positive results are unconfirmed and should not be used fornon-medical purposes. Cannabinoid Screen Urine Not Detected Not Detect [facility] Comment:Cannabinoid cut-off is 50 ng/mL.Positive results are unconfirmed and should not be used fornon-medical purposes. Methadone Screen, Urine Not Detected Not Detect ng/mL [facility] Comment:Methadone cut-off is 300 ng/mL.Positive results are unconfirmed and should not be used fornon-medical purposes. FENTANYL URINE Not Detected Not Detect [facility] Comment:Fentanyl cut-off is 1 ng/mL.Positive results are unconfirmed and should not be used fornon-medical purposes. Oxycodone Urine Screen Not Detected Not Detect ng/mL [facility] Comment:Oxycodone cut-off is 100 ng/mL.Positive results are unconfirmed and should not be used fornon-medical purposes. Buprenorphine Screen Not Detected Not Detect ng/mL [facility] Comment:Buprenorphine cut-of f is 5 ng/mL.Positive results are unconfirmed and should not be used fornon-medical purposes. 07/11/2024 9:43 PM EST 07/11/2024 9:49 PM EST us Generic External Data Provider LAB URINE ORDERAB LES Final Result [facility] [address] [place] [phone] * (ABNORMAL) Urinalysis, Complete, with Reflex to Culture (07/11/2024 9:43 PM EST) Color Urine Yellow [facility] Appearance Urine Clear [facility] PH 5.5 5.0 - 9.0 [facility] Glucose Urine UA >=1000(A) Negative mg/dL [facility] Urine Blood Trace(A) Negative [facility] Specific Rake - Urine >=1.030(H) 1.005 - 1.025 [facility] Urine Protein 30 (1+)(A) Neg-Trace mg/dL [facility] Urine Ketones >=160 Negative mg/dL [facility] Nitrite Urine Negative Negative [facility] Leukocyte Esterase Urine Negative Negative [facility] RBC Urine 0-2 0 - 2 /HPF [facility] Urine WBC 0-5 0 - 5 /HPF [facility] Urine Squamous Epithelial Cell 0-2 0 - 2 /HPF [facility] Urine Bacteria None Seen None Seen [facility] Hyaline Casts, Urine 0-2 0 - 2 /LPF [facility] 07/11/2024 9:43 PM EST 07/11/2024 9:49 PM EST Narrative [facility] - 07/11/2024 9:59 PM EST Urine, Clean Catch us Generic External Data Provider LAB URINE ORDERAB LES Final Result [facility] [address], [place] [phone] * (ABNORMAL) CBC auto differential (07/11/2024 9:43 PM EST) White Blood Count 9.4 4.8 - 10.8 X10*3/uL [facility] Red Blood Count 5.53(H) 4.20 - 5.50 X10*6/uL [facility] Hemoglobin 15.1 12.0 - 16.0 g/dl [facility] Hematocrit 44.1 37.0 - 47.0 % [facility] Mean Corpuscular Volume 79.7(L) 80.0 - 98.0 fL [facility] Mean Corpuscular Hemoglobin 27.3 27.0 - 33.0 pg [facility] Mean Corpuscular HGB Conc 34.2 31.0 - 35.0 g/dl [facility] Red Cell Distribution Width 12.5 11.0 - 16.0 % [facility] Platelet Count 271 160 - 400 X10*3/uL [facility] Mean Platelet Volume 10.3 9.4 - 12.3 fL [facility] Neutrophils Percent Auto 89.5(H) 45 - 73 % [facility] Imm Gran Pct Auto 0.3 0.0 - 0.4 % [facility] Lymphocytes Percent Auto 4.9(L) 20 - 40 % [facility] Monocytes Percent Auto 3.9 2 - 11 % [facility] Eosinophils Percent Auto 1.0 0 - 4 % [facility] Basophils Percent Auto 0.4 0 - 2 % [facility] NRBC Pct Auto 0.0 0.0 - 0.2 /100WBC [facility] Neutrophils Absolute Auto 8.4(H) 2.0 - 8.3 x10*3/uL [facility] Imm Gran Abs Auto 0.03 0.00 - 0.03 X10*3/uL [facility] Lymphocytes Absolute Auto 0.5(L) 1.2 - 4.9 X10*3/uL [facility] Monocytes Absolute Auto 0.4 0.1 - 1.2 X10*3/uL [facility] Eosinophils Absolute Auto 0.1 0.0 - 0.4 X10*3/uL [facility] Basophils Absolute Auto 0.0 0.0 - 0.2 X10*3/uL [facility] NRBC Abs Auto 0.000 0.0 - 0.012 X10*3/uL [facility] 07/11/2024 9:43 PM EST 07/11/2024 9:49 PM EST us Generic External Data Provider LAB BLOOD ORDERAB LES Final Result Performing Organization Address City/[facility]/ZIP Co de Phone Number [facility] [address] [place] [phone] * (ABNORMAL) Glucose, Whole Blood (07/11/2024 9:15 PM EST) Glucose, Whole Blood 495(HH) 60 - 115 mg/dL [facility] Comment:METER #: [id number] 07/11/2024 9:15 PM EST 07/11/2024 9:19 PM EST us Generic External Data Provider LAB BLOOD ORDERAB LES Final Result Performing Organization Address [facility] Co de Phone Number [facility] [address] [place] [phone] documented in this encounter Visit Diagnoses Not on filedocumented in this encounter Additional Health Concerns Assessment Noted Time PHQ-9 Depression Total Score: 14 10/17/ 024 3:35 PM EDT documented as of this encounter Care Teams Water Sander Relationship Specialty Start Date End Date Dallas Menard MD [address] [place] [phone] PCP - General Internal Medicine 08/11/15 documented as of this encounter
--- OUTSIDE RECORDS SUMMARY | 2024-07-30 16:12 | XMS_ITS | Encounter Summary ---
Author Organization [employer] Address [address] [place] [address] Care Team Providers Care Glass Forming Engineer Name Role Phone Dallas Menard MD Primary Care Provide r Reason for Visit * Reason Onset Date Comments Novolog 07/30/2024 Encounter Details Date Type Department Care Team ([facility] st Contact Info) Description 07/30/2024 Telephone [facility] [address] [place], [place] [phone] Dallas Menard MD [address] [place] [address] Novolog Social History Tobacco Use Types Packs/Day Years [...] your housing situation today? I have delonte yudith 07/29/[address] you li [...] encounter Miscellaneous Notes * Telephone Encounter - Nia Garcia RN - 07/30/2024 12:19 PM EDT Irasema Goncalves did the work for us on a [facility] Formulary change that will be effective 08-12-24 regarding rapid acting insulin. Humalog will be the preferred agent and Novolog and its generic will require Prior Authorization. She will be sending an email out to providers and nurses shortly??? Hi all, Beginning August 12, 2024, [facility] (and other [facility] associated plans) will be making changes to their formulary in regard to rapid-acting insulin agents. These plans will no longer be covering insulin aspart (Novolog, Fiasp) vials/pens and continuation of use would require Prior Authorization. PA requirements include documentation of the following: Appropriate diagnosis and inadequate response, adverse reaction, or contraindication to insulin lispro (Humalog) The preferred agent for these patients will now be insulin lispro (Humalog) vials/pens. When converting patients??? regimens from insulin aspart (Novolog, Fiasp) to insulin lispro (Humalog), the dosewill remain the same, as it is converted as [id number]. Please do not hesitate to reach out with any questions. documented in this encounter Plan of Treatment Not on file documented as of this encounter Visit Diagnoses Not on filedocumented in this encounter Additional Health Concerns Assessment Noted Time PHQ-9 Depression Total Score: 12 025 10:47 AM EDT documented as of this encounter Care Teams Glass Forming Engineer Relationship Specialty Start Date End Date Dallas Menard MD [address] [place] [phone] PCP - General Internal Medicine 08/11/15 documented as of this encounter
--- OUTSIDE RECORDS SUMMARY | 2024-07-30 16:12 | XMS_ITS | Encounter Summary ---
Author Organization [employer] Address [address] [facility] 7t [place] [address] Care Team Providers Care General Doc Name Role Phone Dallas Menard MD Primary Care Provide r Reason for Visit * Reason Comments Med Refill Encounter Details Date Type Department Care Team ([facility] st Contact Info) Description 07/18/2024 Refill [facility] [address] [place], [place] [phone] Dallas Menard MD [address] [place], [place] [phone] Chronic abdominal pain Social History Tobacco Use [...] documented as of this encounter Care Teams General Doc Relationship Specialty Start Date End Date Dallas Menard MD [address] [place] [phone] PCP - General Internal Medicine 08/11/15 documented as of this encounter
--- OUTSIDE RECORDS SUMMARY | 2024-07-30 16:12 | XMS_ITS | Encounter Summary ---
Author Organization [employer] Address [address] [facility] 7t [place] [address] Care Team Providers Care Datastage Architect Name Role Phone Dallas Menard MD Primary Care Provide r Reason for Visit * Reason Onset Date Comments Chart Prep 07/11/2024 Encounter Details Date Type Department Care Team ([facility] st Contact Info) Description 07/11/[address] [facility] MED[facility]INE [address] [place], [place] [phone] Dallas Menard MD [address] [place] [address] Chart Prep Social History Tobacco Use Types [...] Telephone Encounter - Latia Leyva [place] - 07/11/2024 1:45 PM EST Chart Prep Labs: done Images: not applicable Vaccines due: Covid Due, Hep B Due, and Shingles in pharmacy Due Referrals: Not Applicable Screenings: Colonoscopy , Mammogram, and Eye Exam Overdue care gaps: A1C, Glucose, Sbirt, SDOH, PHQ-9, and Oral Health Chart prep for upcoming appt with Dr.Esparza gimenez LB documented in this encounter Plan of Treatment Not on file documented as of this encounter Visit Diagnoses Not on filedocumented in this encounter Additional Health Concerns Assessment Noted Time PHQ-9 Depression Total Score: 14 024 3:35 PM EDT documented as of this encounter Care Teams Datastage Architect Relationship Specialty Start Date End Date Dallas Menard MD [address] [place] [address] PCP - General Internal Medicine 08/11/15 documented as of this encounter
--- OUTSIDE RECORDS SUMMARY | 2024-07-30 16:12 | XMS_ITS | Encounter Summary ---
Author Organization [employer] Address [address] [facility] 7t [place] [address] Care Team Providers Care Charge Coordinator Name Role Phone Dallas Menard MD Primary Care Provide r Encounter Details Date Type Department Care Team (Late st Contact Info) Description 10/03/2022 Orders Only [facility] [address] [place], [place] [phone] Jennifer Lopez LPN Social History Tobacco Use [...] documented as of this encounter Care Teams Charge Coordinator Relationship Specialty Start Date End Date Dallas Menard MD [address] [place] [phone] PCP - General Internal Medicine 08/11/15 documented as of this encounter
--- OUTSIDE RECORDS SUMMARY | 2024-07-30 16:12 | XMS_ITS | Encounter Summary ---
Author Organization [employer] Address [address] [place] [address] Care Team Providers Care Library Circulation Clerk Name Role Phone Dallas Menard MD Primary Care Provide r Reason for Visit * Reason Onset Date Comments Durable Medical Equipment 07/29/2024 Encounter Details Date Type Department Care Team ([facility] st Contact Info) Description 07/29/2024 Telephone [facility] MEDICINE [address] [place] [address] Deidre Cisneros, RN [address] [place] [address] Durable Medical Equipment Social History Tobacco Use [...] is your housing situation today? I have delontejoie zurita 07/29/[address] you [...] encounter Miscellaneous Notes * Telephone Encounter - Deidre Cisneros RN - 07/29/2024 9:59 AM EDT Per PCP in [place] pt needs DME: -Nebulizer -Rolator Walker Scripts generated and signed by PCP. Pending processing documented in this encounter Plan of Treatment Not on file documented as of this encounter Visit Diagnoses Not on filedocumented in this encounter Additional Health Concerns Assessment Noted Time PHQ-9 Depression Total Score: 12 025 10:47 AM EDT documented as of this encounter Care Teams Library Circulation Clerk Relationship Specialty Start Date End Date Dallas Menard MD [address] [place] [phone] PCP - General Internal Medicine 08/11/15 documented as of this encounter
--- OUTSIDE RECORDS SUMMARY | 2024-07-30 16:12 | XMS_ITS | Encounter Summary ---
Author Organization [employer] Address [address] [facility] 7t [place] [address] Care Team Providers Care Museum Tour Guide Name Role Phone Dallas Menard MD Primary Care Provide r Encounter Details Date Type Department Care Team (Late st Contact Info) Description 07/12/2024 Orders Only GENERIC EXTERNAL DATA DEPARTMENT Provider, [...] housing situation today? I have delontejoie zurita 07/19/[address] you [...] Procedure Name Priority Date/Time Associated Diagnosis Comments LACTIC ACID LAB USE ONLY Routine 07/12/2024 12:19 AM EST HIGH SENSITIVITY TROPONIN I Routine 07/12/2024 12:19 AM EST documented in this encounter Results * Lactic Acid (07/12/2024 12:19 AM EST) Lactic Acid 1.8 0.5 - 2.0 mmol/L [facility] 07/12/2024 12:1 9 AM EST 07/12/2024 12:38 AM EST us Generic External Data Provider LAB BLOOD ORDERAB LES Final Result Performing Organization Address City/[facility] Co de Phone Number [facility] [address] [place] [phone] * (ABNORMAL) High Sensitivity Troponin I (07/12/2024 12:19 AM EST) TROPONIN I HIGH SENSITIVITY 26.6(H) <3.5 - 17.0 ng/L [facility] Comment:The Farias high sens itivity Troponin-I results should beused in conjunction with other diagnostic information suchas ECG, clinical observations and information, and patientsymptoms to aid in the diagnosis of OR. 07/12/2024 12:1 9 AM EST 07/12/2024 12:38 AM EST us Generic External Data Provider LAB BLOOD ORDERAB LES Final Result Performing Organization Address City/[facility]/ZIP Co de Phone Number [facility] [address] [place] [phone] documented in this encounter Visit Diagnoses Not on filedocumented in this encounter Additional Health Concerns Assessment Noted Time PHQ-9 Depression Total Score: 14 024 3:35 PM EDT documented as of this encounter Care Teams Museum Tour Guide Relationship Specialty Start Date End Date Dallas Menard MD [address] [place] [phone] PCP - General Internal Medicine 08/11/15 documented as of this encounter
--- OUTSIDE RECORDS SUMMARY | 2024-07-30 16:12 | XMS_ITS | Encounter Summary ---
Author Organization [employer] Address [address] [facility] 7t [place] [address] Care Team Providers Care Boat Hop Name Role Phone Dallas Menard MD Primary Care Provide r Encounter Details Date Type Department Care Team ([facility] st Contact Info) Description 07/25/[address] [facility] (C[facility]) Department [address] [phone] Provider, Population Health Generic Social History Tobacco Use Types Packs/Day Years [...] documented as of this encounter Care Teams Boat Hop Relationship Specialty Start Date End Date Dallas Menard MD [address] [place] [phone] PCP - General Internal Medicine 08/11/15 documented as of this encounter
--- OUTSIDE RECORDS SUMMARY | 2024-07-30 16:12 | XMS_ITS | Encounter Summary ---
Author Organization [employer] Address [address] [facility] 7t [place] [address] Care Team Providers Care Motor Electrician Name Role Phone Dallas Menard MD Primary Care Provide r Encounter Details Date Type Department Care Team (Late st Contact Info) Description 07/11/2022 Orders Only [facility] [address] [place], [place] [phone] Jennifer Lopez LPN Social History Tobacco Use [...] documented as of this encounter Care Teams Motor Electrician Relationship Specialty Start Date End Date Dallas Menard MD [address] [place] [phone] PCP - General Internal Medicine 08/11/15 documented as of this encounter
--- OUTSIDE RECORDS SUMMARY | 2024-07-30 16:12 | XMS_ITS | Clinical Summary ---
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 was seen here at our [facility] after a recent ED visit pt c/o abdominal pain scheduled for a CT of abdomen on Sunday. Assessment & Plan (05/30/2022 8:41 AM EST): Currently not complaining. Pt with Hx of chronic abdominal pain. CT scan of her abdomen and pelvis (07/24/2012) that aside from a dilated CBD (thought to be due to cholecystectomy) was otherwise unrevealing. pt has a Hx.of chronic diffuse abdominal pain for which she follows at [facility]. Their impression is that she likely has gastroparesis, IBS?. Pt treated with Omeprazole daily and Reglan. Pt had a previous CT of her abdomen and pelvis that was done on 01/31/2012 and raised a question of an enlarged left ovary for which US was recommended. She had a pelvic US on 04/28/2012 and it was completely normal. Both ovaries were normal. Of note pt finally had a colonoscopy at [facility] on 02/02/2012 that showed internal hemorrhoids only, 10 year f/u was recommended. 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 10 units with dinner. History: Updated 12/03/23 Started CDTM 12/03/23. No at home BG was available. - On ASA: Y - On Statin: Y Atorvastatin 80 mg - Last Eye Exam: >1 year ago - Last Dental Exam: unknown Assessment & Plan (07/29/2024 12:45 PM EDT): Patient is here for a f/u DM uncontrolled. She tells me she missed 2 appointments with endocrinology Hgb A1c 07/29/2024: 14 from 10.2 from 8.8 from 7.4 She is on a regimen of: Tresiba 65 units sc in pm ( Administered by her COPY CENTER OPERATOR ) and NovoLog now 8 in AM, 6 at lunch and 10 at dinner as well as Trulicity 0.75 mg q week ( lowered due to pt c/o anorexia with higher dose) and Metformin 500 mg po BID. Last seen Endocrinology 02/05/2024 She has a Medbox. Plan: I contacted endocrinology they agreed to see her tomorrow at 2:00 PM. Pt's personal care home administrator promised to bring her to her appointment. As per Endocrinology Microalbumin from 01/13/2022 was 0.3 Eye Exam 03/23/2023 No retinopathy Foot check risk of One Pt already on ASA 81 mg po daily. f/u with me in 3 months Pt was previously referred to our nursing educator as well, but she documented her unsuccessful efforts to help her and at this moment there was nothing else she could offer her Assessment & Plan (02/21/2024 1:33 PM EDT): Patient is here for a f/u Pt not checking her blood sugars Hgb A1c 02/21/2024: 10.2 from 8.8 from 7.4 She is on a regimen of: Tresiba 65 units sc in pm ( Administered by her COPY CENTER OPERATOR ) and NovoLog now 8 in AM, 6 at lunch and 10 at dinner as well as Trulicity 0.75 mg q week ( lowered due to pt c/o anorexia with higher dose) and Metformin 500 mg po BID. She is back seeing Endocrinology. Last seen 02/05/2024 She has a Medbox. Plan: As per Endocrinology f/u with me in 3 months Pt was previously referred to our nursing educator as well, but she documented her unsuccessful efforts to help her and at this moment there was nothing else she could offer her Microalbumin from 08/31/2020 was 0.6 Eye Exam 07/19/2017, referred Foot check risk of One Pt already on ASA 81 mg po daily. Assessment & Plan (12/10/2023 6:08 PM EDT): Assessment: - NOT at goal of A1c less than 7% or fasting BG between 70-130 mg/dL per ADA guidelines. Plan/ Recommendations: - Record daily blood glucose. F/U in 1 week Monitoring: Hemoglobin A1c (% of total Hgb) Date Value 03/22/2020 12.2 (H) 03/22/2020 12.2 (H) Hemoglobin A1C (%) Date Value 10/18/2023 8.8 (A) 07/19/2023 7.4 (A) LDL Cholesterol (mg/dL (calc)) Date Value 06/01/2022 35 HDL Cholesterol (mg/dL) Date Value 06/01/2022 35 (L) No results found for: B12 Assessment & Plan (11/22/2023 10:52 AM EDT): Patient is here for a f/u Pt not checking her blood sugars Hgb A1c 10/18/2023: 8.8 from 7.4 She is on a regimen of: Tresiba 65 units sc in pm ( Administered by her COPY CENTER OPERATOR ) and NovoLog now 8 in AM, 6 at lunch and 10 at dinner as well as Trulicity 0.75 mg q week ( lowered due to pt c/o anorexia with higher dose) and Metformin 500 mg po BID. She no longer follows with Endocrinology. She has a Medbox. Plan: Increase Metformin to 1 tab in AM and 2 tabs at PM f/u with me in 3 months Pt was previously referred to our nursing educator as well, but she documented her unsuccessful efforts to help her and at this moment there was nothing else she could offer her Microalbumin from 08/31/2020 was 0.6 Eye Exam 07/19/2017, referred Foot check risk of One Pt already on ASA 81 mg po daily. Assessment & Plan (10/18/2023 6:43 PM EDT): hb1AC 8.8<---7.4, CBG 246 -optha 05/2023 to f w 6 mo -[employer] referred today for annual foot exam and toenails care -pt stopped using trulicity 1.5 aprox 2 to 3 weeks ago because was noticing significant decrease in appetite ---currently DM is not controlled -pt agreeed to try again trulicity but lower dose of 0.75 mg and if not tolerates will discuss w PCP for another options Assessment & Plan (07/19/2023 9:54 AM EST): Patient is here for a f/u Pt not checking her blood sugars Hgb A1c 07/19/2023: 7.4 She is on a regimen of: Tresiba 65 units sc in pm ( Administered by her COPY CENTER OPERATOR ) and NovoLog now 8 in AM, 6 at lunch and 10 at dinner as well as Trulicity 1.5 q week and Metformin 500 mg po BID. She no longer follows with Endocrinology. She has a Medbox. Plan: No changes until she brings her glucometer f/u with me in 2 months Pt was previously referred to our nursing educator as well, but she documented her unsuccessful efforts to help her and at this moment there was nothing else she could offer her Microalbumin from 08/31/2020 was 0.6 Eye Exam 07/19/2017, referred Foot check risk of One Pt already on ASA 81 mg po daily. Assessment & Plan (03/08/2023 3:14 PM EDT): Patient is here for a f/u Pt not checking her blood sugars Hgb A1c 03/08/2023 6.7 She is on a regimen of: Tresiba 65 units sc in pm ( Administered by her niece Princess Ruelas who is her night COPY CENTER OPERATOR ) and a NovoLog now 8 in AM, 6 at lunch and 10 at dinner started by Endocrinology as well as Trulicity 1.5 q week and Metformin 500 mg po BID. She no longer follows with Endocrinology, Barbie Carrasquillo left her practice She has a Medbox. Plan: Continue current regimen f/u with me in 4 months Pt was previously referred to our nursing educator as well, but she documented her unsuccessful efforts to help her and at this moment there was nothing else she could offer her Microalbumin from 08/31/2020 was 0.6 Eye Exam 07/19/2017, referred Foot check risk of One Pt already on ASA 81 mg po daily. Assessment & Plan (11/28/2022 11:50 AM EDT): Patient is here for a f/u Pt not checking her blood sugars Hgb A1c 11/28/2022 6.2 She is on a regimen of: Tresiba 65 units sc in pm ( Administered by her niece Princess Ruelas who is her night COPY CENTER OPERATOR ) and a NovoLog now 8 in AM, 6 at lunch and 10 at dinner started by Endocrinology as well as Trulicity 1.5 q week and Metformin 500 mg po BID. She no longer follows with Endocrinology, Barbie Carrasquillo left her practice She has a Medbox. Plan: Continue current regimen f/u with me in 4 months Pt was previously referred to our nursing educator as well, but she documented her unsuccessful efforts to help her and at this moment there was nothing else she could offer her Microalbumin from 08/31/2020 was 0.6 Eye Exam 07/19/2017, referred Foot check risk of One Pt already on ASA 81 mg po daily. Assessment & Plan (05/30/2022 11:57 AM EST): Patient is here for a f/u Pt not checking her blood sugars consistently Hgb A1c 05/30/2022 6.0 She is on a regimen of: Tresiba 65 units sc in pm ( Administered by her niece Princess Ruelas who is her night COPY CENTER OPERATOR ) and a NovoLog now 8 in AM, 6 at lunch and 10 at dinner started by Endocrinology as well as Trulicity 1.5 q week and Metformin 500 mg po BID. She no longer follows with Endocrinology, Barbie Carrasquillo left her practice She has a Medbox. Plan: Continue current regimen f/u with me in 4 months Pt was previously referred to our nursing educator as well, but she documented her unsuccessful efforts to help her and at this moment there was nothing else she could offer her Microalbumin from 08/31/2020 was 0.6 today we ordered a repeat Eye Exam 07/19/2017, referred Foot check risk of One Pt already on ASA 81 mg po daily. Encounters Date Type Department Care Team Description 07/30/2024 Orders Only GENERIC EXTERNAL DATA DEPARTMENT Provider, Generic External Data 07/30/2024 Telephone [facility] [address] [place] [address] Dallas Menard MD Novolog 07/29/2024 9:30 AM EDT Office Visit [facility] [address] [place] [address] Dallas Menard MD Hospital discharge follow-up (Primary Dx); Primary osteoarthritis [...] with acute exacerbation; Subacute cough; Frequent falls 07/29/2024 Telephone [facility] [address] [place] [address] Deidre Cisneros RN Durable Medical Equipment 07/29/2024 Travel 07/25/2024 Population Health Risk Score [facility] () Department [address] [place] [phone] Provider, Population Health Generic 07/23/2024 Telephone [facility] [address] [place] [address] Dallas Menard MD Chart Prep 07/21/2024 Telephone [facility] MEDICINE [address] [place] [address] Dallas Menard MD Durable Medical Equipment 07/18/2024 Refill [facility] MEDICINE [address] [place] [address] Dallas Menard MD Chronic abdominal pain 07/16/2024 Patient Outreach [facility] [address] [place], [place] [address] Dallas Menard MD Transition Of Care (Tcm) (F- ) 07/15/2024 Telephone [facility] [address] [place] [address] Dallas Menard MD 07/12/2024 Orders Only GENERIC EXTERNAL DATA DEPARTMENT Provider, Generic External Data 07/11/2024 Orders Only GENERIC EXTERNAL DATA DEPARTMENT Provider, Generic External Data 07/11/2024 Telephone [place] [address] Dallas Menard MD Chart Prep 07/10/2024 Telephone [facility] MEDICINE [address] [place] [address] Dallas Menard MD Appointment Request 07/10/2024 Refill [facility] [address] [place] [address] Dallas Menard MD Mild intermittent asthma without complication 06/23/2024 Refill [facility] [address] [facility] [place] [address] Dallas Menard MD Hypertension associated with diabetes ([facility]) ([facility]) 06/23/2024 Telephone [facility] [address] [place] [address] Dallas Menard MD 06/19/2024 Refill [facility] [address] [place] [address] Dallas Menard MD Hypertension associated with diabetes ([facility]) ([facility]) 06/17/2024 Refill [facility] [address] [place] [address] Dallas Menard MD Chronic abdominal pain 06/17/2024 Refill [facility] [address], [place] [phone] Shayna Edgar MD Hypertension associated with diabetes ([facility]) ([facility]) 05/23/2024 Telephone [facility] [address] [facility] [place] [address] Alessandra Syed, RN Results 05/22/2024 Telephone [facility] [address] [place] [address] Dallas Menard MD July Recall 05/19/2024 Refill [facility] [address] [place] [address] Dallas Menard MD Chronic abdominal pain 05/09/2024 Refill [facility] [address], [place] [phone] Dallas Menard MD Chronic abdominal pain from Last 3 Months Immunizations Name Administration Dates Next Due Influenza injectable quadriv alent IIV4 with preservative 03/25/2019,01/29/2018,06/15/2017,02/15 Influenza injectable quadriv alent preservative free 03/08/2023,03/10/2021,03/02/2020,02/25 Influenza, IIV3, injectable 03/10/2014, 1 Influenza, Split (incl. saba fied surface antigen) 02/19/2013,01/12/2012 Influenza, seasonal, injecta ble, preservative free 02/21/2024,02/07/2017,04/10/2016,01/30,02/05/2014 Pfizer Covid-19 Vaccine 12+ 10/18/2023 Pneumococcal Conjugate PCV 20 10/18/2023 Pneumococcal Polysaccharide PPSV23 08/07/2012, TD (adult), 2 Lf tetanus tox oid, preservative free, adsorbed 04/17/1994 Td (adult), 5 Lf tetanus tox oid, preservative free, adsorbed 10/08/2012 Tdap 02/15/2015 Family History Medical History Relation Name Comments DM2 Maternal Grandmother DM2 Mother Multiple sclerosis Mother Relation Name Status Comments Maternal Grandmother Mother Social History Tobacco Use Types Packs/Day Years Used Date Smoking Tobacco: Never Passive Smoke Exposure: Never Smokeless Tobacco: Never Tobacco Cessation:Counseling Given: Not Answered Alcohol Use Standard Drinks/Week Comments Not Currently [...] Orientation Straight 03/13/2022 10 :15 AM EDT Last Filed Vital Signs Vital Sign Reading [...] 12.8 oz) 07/29/2024 9:29 AM EDT Height 160 cm (5' 3 ) 02/21/2024 1:17 PM EDT Body Mass Index 24.94 02/21/2024 1:17 PM EDT Plan of Treatment Health Maintenance Due Date Last Done Comments CT Colonography 1965 Colonoscopy 1966 Colorectal Cancer Screening 1965 FIT DNA/Cologuard 1966 FIT 1966 FOBT 1965 HIV Screening 1965 Sigmoidoscopy 1966 Diabetes: Foot Exam 1976 Eye Exam 1976 Hepatitis C Screening 1984 Hepatitis B Vaccines (1 of 3 - 19+ 3-dose series) 1985 Zoster Vaccines (1 of 2) 2016 Diabetes: Urine Protein Screening 02/08/2023 02/08/2022, 01/13/2022, 03/23/2020 Lipid Panel 06/01/2023 06/01/2022, 09/2 12/2021, 01/13/2022, Additional history exists COVID-19 Vaccine ( season) 2024 10/18/2023, 12/09/2021, 09/02/2020 Mammogram 03/01/2024 03/01/2023, 01/28/2022 Diabetes: Hemoglobin A1C 10/29/2024 025, 02/21/2024, 10/18/2023, Additional history exists Depression Monitoring (PHQ-9) 01/29/2025 07/29/2024, 07/29/2024 DTaP/Tdap/Td Vaccines (2 - Td or Tdap) 02/15/2025 02/15/2015, 10/08/2012, 04/17/1994 Tobacco Screening 02/20/2025 02/21/2024 Alcohol/Substance Use Screening 07/29/2025 07/29/2024 Depression Screening 07/29/2025 07/29/2024, 07/30/19 25 SDOH Screening 07/29/2025 07/29/2024 Cervical Cancer Screening 12/29/2025 HPV/Cotest 12/29/2025 12/29/2020, 06/15/2017 Pap Smear 12/29/2025 12/29/2020 RSV Patients and Patients Aged 60 years or older (1 - 1-dose 75+ series) 2041 Pneumococcal Vaccine: 50+ Years Completed 10/18/2023, 08/07/2012, 08/28/2000 Influenza Vaccine Completed 02/21/2024, , 03/10/2021, Additional history exists HIB Vaccines Aged Out No longer eligi ble based on patient's age to complete this topic HPV Vaccines Aged Out No longer eligi ble based on patient's age to complete this topic Hepatitis A Vaccines Aged Out No long er eligible based on patient's age to complete this topic IPV Vaccines Aged Out No longer eligi ble based on patient's age to complete this topic Meningococcal Vaccine Aged Out No arlyn ed eligible based on patient's age to complete this topic RSV under 20 months Aged Out No longe r eligible based on patient's age to complete this topic Rotavirus Vaccines Aged Out No longer eligible based on patient's age to complete this topic Procedures Procedure Name Priority Date/Time Associated Diagnosis Comments GLUCOSE, WHOLE BLOOD Routine 07/30/2024 2:03 PM EDT POCT INFLUENZA A (ID NOW RAPID MOLECULAR) Routine 07/29/2024 10:29 AM EDT Subacute cough POCT INFLUENZA B (ID NOW RAPID MOLECULAR) Routine 07/29/2024 10:29 AM EDT Subacute cough POCT RAPID COVID ANTIGEN Routine 07/29/2024 10:27 AM EDT Subacute cough POCT GLYCATED HEMOGLOBIN, TOTAL Routine 07/29/2024 9:32 AM EDT Hospital discharge follow-up POCT GLUCOSE Routine 07/29/2024 9:31 AM EDT Hospital discharge follow-up CTA CHEST PE PROTOCAL Routine 07/12/2024 2:30 AM EST LACTIC ACID LAB USE ONLY Routine 07/12/2024 12:19 AM EST HIGH SENSITIVITY TROPONIN I Routine 07/12/2024 12:[address] CERVICAL SPINE WO CONTRAST Routine 07/12/2024 12:[address] HEAD WO CONTRAST Routine 07/12/2024 1 2:15 AM EST XR CHEST 1 VIEW Routine 07/11/2024 10:16 PM EST LACTIC ACID Routine 07/11/2024 9:45 PM EST HIGH SENSITIVITY TROPONIN I Routine 07/11/2024 9:43 PM EST COMPREHENSIVE METABOLIC PANEL Routine 07/11/2024 9:43 PM EST DRUG MONITOR, PANEL 1, SCREEN, URINE Routine 07/11/2024 9:43 PM EST URINALYSIS, COMPLETE, WITH REFLEX TO CULTURE Routine 07/11/2024 9:43 PM EST CBC WITH AUTO DIFFERENTIAL Routine 07/11/2024 9:43 PM EST SARS COV2/INFLUENZA A/B AND RSV RNA QL NAAT Routine 07/11/2024 9:43 PM EST GLUCOSE, WHOLE BLOOD Routine 07/11/2024 9:15 PM EST US RETROPERITONEAL COMPLETE Routine 05/09/2024 10:00 AM EST US ABDOMEN LIMITED Routine 05/09/2024 9: 45 AM EST Gallstones BI MAMMOGRAM SCREENING TOMOSYNTHESIS BILATERAL Routine 03/01/2023 12:51 PM EDT LIPID PANEL WITH REFLEX TO DIRECT LDL Routine 06/01/2022 9:27 AM EST Type 2 diabetes mellitus without complication, with long-term current use of insulin ([facility]) ZZZ HISTORICAL MICROALBUMIN/CREATININE RATIO, RANDOM URINE Routine 02/08/2022 12:15 PM EDT HPV MRNA E6/E7 Routine 12/29/2020 9:22 AM EDT THINPREP PAP Routine 12/29/2020 9:22 AM EDT from Last 3 Months or Most Recently Relevant to Health Maintenance Results * (ABNORMAL) Glucose, Whole Blood (07/30/2024 2:03 PM EDT) Glucose, Whole Blood 380(HH) 60 - 115 mg/dL [facility] Comment:METER #: [id number] Testing performed in the Endocrinology Department [address] , [address], [place]. 07/30/2024 2:03 PM EDT 07/30/2024 2:08 PM EDT us Generic External Data Provider LAB BLOOD ORDERAB LES Final Result Performing Organization Address [facility] Co de Phone Number [facility] [address] [place] [phone] * POCT Rapid Influenza B HENRIQUEZ ID NOW (07/29/2024 10:29 AM EDT) Influenza B Negative Negative, Indeterminate [facility] QC Media Lot # [id number] [facility] Lot# Expiration Date [facility] Swab 07/29/2024 10:2 9 AM EDT Dallas Romero MD POINT OF CARE TEST EN TER/EDIT ORDERABLES Final Result Performing Organization Address [facility] de Phone Number [facility] [address] [place] [phone] * POCT Rapid Influenza A HENRIQUEZ ID NOW (07/29/2024 10:29 AM EDT) [facility] Signature Influenza A Negative Negative, Indeterminate [facility] QC Media Lot # [id number] [facility] Lot# Expiration Date [facility] Swab 07/29/2024 10:2 9 AM EDT Dallas Romero MD POINT OF CARE TEST EN TER/EDIT ORDERABLES Final Result Performing Organization Address [facility]/ZIP Co de Phone Number [facility] [address] [place] [phone] * POCT Rapid Covid-19 BinaxNOW (07/29/2024 10:27 AM EDT) Rapid COVID Ag Negative QC Media Lot # [id number] Lot# Expiration Date [id number] Swab 07/29/2024 10:2 7 AM EDT Dallas Romero MD POINT OF CARE TEST EN TER/EDIT ORDERABLES Final Result * (ABNORMAL) POCT HGB A1C (07/29/2024 9:32 AM EDT) Hemoglobin A1C 14.0(A) 4.0 - 6.0 % QC Media Lot # [id number] Lot# Expiration Date ,026 Blood 07/29/2024 9:32 AM EDT Dallas Romero MD POINT OF CARE TEST EN TER/EDIT ORDERABLES Final Result * (ABNORMAL) POCT Glucose (07/29/2024 9:31 AM EDT) Glucose Blood, POC 292(A) 60 - 200 mg/dL QC Media Lot # [id number] Lot# Expiration Date ,025 Blood Capillary blood specimen / Unknown 07/29/2024 9:31 AM EDT Dallas Romero MD POINT OF CARE TEST EN TER/EDIT ORDERABLES Final Result * CTA Chest PE Protocal (07/12/2024 2:30 AM EST) Anatomical Region Laterality Modality Body, Chest Computed Tomogra phy 07/12/2024 2:30 AM EST Narrative 07/12/2024 2:31 AM EST ? [facility] ?[address] ?[place] [address] ? CT Scan Report ? Signed ? Patient: Wendy Rivers ?MR#: [id number] ?? 241 ? : 1965 ?Acct:[id number] ? Age/Sex: 58 / F ?ADM Date: 02/28/25 ? Loc: HO.ED ? Attending Dr: ? Ordering Physician: Franci Ramos ?? Date of Service: 07/12/24 ?? Procedure(s): CT angio chest PE protocol ?? Accession Number(s): [id number] ? cc: Dallas Butler MD; Franci Ramos ? Report Number: ?? [id number]: Total DLP = ??398.00 mGy-cm ? CLINICAL HISTORY: hypoxia, SOB ? CT angiography chest with contrast. 3D Postprocessing. ? Comparison: CT/UT/SR - CT CHEST WO IV CON - [...] ? Signed By: ?<Electronically signed by Reza Blanchard, MD in OV> ? 07/12/24 0231 ? DD/ 0230 ? TD/TT: 07/12/24 0230 ? Heavy Equipment Rental Manager: ? Procedure Note Gena Redding - 07/12/[address] [address] [address] Scan Report Signed Patient: Wendy RiversMR#: [id number] 241 : 1965Acct:[id number] Age/Sex: 58 / FADM Date: 07/11/24 Loc: HO.ED Attending Dr: Ordering Physician: Franci Ramos Date of Service: 07/12/24 Procedure(s): CT angio chest PE protocol Accession Number(s): [id number] cc: Dallas Butler MD; Franci Ramos Report Number: [id number]: Total DLP = 398.00 mGy-cm CLINICAL HISTORY: hypoxia, SOB CT angiography chest with contrast. 3D Postprocessing. Comparison: CT/UT/SR - CT CHEST WO IV CON - [...] signed by Reza Blanchard MD in OV> 07/12/24 023 DD/ 0230 TD/TT: 07/12/24 0230 Heavy Equipment Rental Manager: [facility] External Provider IMG CT PROCEDURES Final Result * Lactic Acid (07/12/2024 12:19 AM EST) Lactic Acid 1.8 0.5 - 2.0 mmol/L [facility] 07/12/2024 12:1 9 AM EST 07/12/2024 12:38 AM EST Generic External Data Provider LAB BLOOD ORDERAB LES Final Result [facility] [address] [place] [phone] * (ABNORMAL) High Sensitivity Troponin I (07/12/2024 12:19 AM EST) Only the most recent of2 resultswithin the time period is included. TROPONIN I HIGH SENSITIVITY 26.6(H) <3.5 - 17.0 ng/L [facility] Comment:The Henriquez high sens itivity Troponin-I results should beused in conjunction with other diagnostic information suchas ECG, clinical observations and information, and patientsymptoms to aid in the diagnosis of MS. 07/12/2024 12:1 9 AM EST 07/12/2024 12:38 AM EST us Generic External Data Provider LAB BLOOD ORDERAB LES Final Result [facility] [address] [place] [address] [phone] * CT Cervical Spine w/o Contrast (07/12/2024 12:16 AM EST) Anatomical Region Laterality Modality Spine, C-spine Computed Tomogra phy 07/12/2024 12:1 6 AM EST Narrative 07/12/2024 12:17 AM EST ? [facility] ?[address] ?[place] [address] ? CT Scan Report ? Signed ? Patient: Wendy Rivers ?MR#: [id number] ?? 241 ? : 1965 ?Acct:[id number] ? Age/Sex: 58 / F ?ADM Date: 07/11/24 ? Loc: HO.ED ? Attending Dr: ? Ordering Physician: Ricci Cardenas ?? Date of Service: 07/11/24 ?? Procedure(s): CT cervical spine wo IV con ?? Accession Number(s): [id number] ? cc: Dallas Butler MD; Ricci Cardenas ? Report Number: ?? [id number]: Total DLP = ??296.00 mGy-cm ? CLINICAL [...] 07/12/247 ? DD/ ? TD/TT: 07/12/246 ? Heavy Equipment Rental Manager: ? Procedure Note Donrowenaelijah, Image - 07/12/[address] [place] [address] [address] Scan Report Signed Patient: Wendy RiversMR#: [id number] 241 : 1965Acct:[id number] Age/Sex: 58 / FADM Date: 07/11/24 Loc: HO.ED Attending Dr: Ordering Physician: Ricci Cardenas Date of Service: 07/11/24 Procedure(s): CT cervical spine wo IV con Accession Number(s): [id number] cc: Dallas Butler MD; Ricci Cardenas Report Number: [id number]: Total DLP = 296.00 mGy-cm CLINICAL HISTORY: [...] signed by John Santos MD in OV> 07/12/24 0017 DD/ TD/TT: 07/12/2415 Heavy Equipment Rental Manager: [facility] External Provider IMG CT PROCEDURES Final Result * CT Head w/o Contrast (07/12/2024 12:15 AM EST) Anatomical Region Laterality Modality Head, Neck Computed Tomogra phy 07/12/2024 12:1 5 AM EST Narrative 07/12/2024 12:16 AM EST ? [facility] ?[address] ?[place] [address] ? CT Scan Report ? Signed ? Patient: Rivers,Wendy ?MR#: [id number] ?? 241 ? : 1965 ?Acct:[id number] ? Age/Sex: 58 / F ?ADM Date: 07/11/24 ? Loc: HO.ED ? Attending Dr: ? Ordering Physician: Ricci Cardenas ?? Date of Service: 07/11/24 ?? Procedure(s): CT head/brain wo IV con ?? Accession Number(s): [id number] ? cc: Dallas Butler MD; Ricci Cardenas ? Report Number: ?? [id number]: Total DLP = ??658.00 mGy-cm ? CLINICAL [...] by John Santos MD in OV> ? 07/12/246 ? DD/ ? TD/TT: 07/12/2414 ? Heavy Equipment Rental Manager: ? Procedure Note Gena Redding - 07/12/[address] [place] [address] [address] Scan Report Signed Patient: Wendy RiversMR#: [id number] 241 : 1965Acct:[id number] Age/Sex: 58 / FADM Date: 07/11/24 Loc: HO.ED Attending Dr: Ordering Physician: Ricci Cardenas Date of Service: 07/11/24 Procedure(s): CT head/brain wo IV con Accession Number(s): [id number] cc: Dallas Butler MD; Ricci Cardenas Report Number: [id number]: Total DLP = 658.00 mGy-cm CLINICAL HISTORY: [...] signed by John Santos MD in OV> 07/12/24 001 DD/ TD/TT: 07/12/2414 Heavy Equipment Rental Manager: [facility] External Provider IMG CT PROCEDURES Final Result * XR Chest 1 View (07/11/2024 10:16 PM EST) Anatomical Region Laterality Modality Chest Radiographic Radha ging 07/11/2024 10:1 6 PM EST Narrative 07/11/2024 10:18 PM EST ? [facility] ?[address] ?[place] [address] ?XRay Report ? Signed ? Patient: Wendy Rivers ?MR#: [id number] ?? 241 ? : 1965 ?Acct:[id number] ? Age/Sex: 58 / F ?ADM Date: 07/11/24 ? Loc: HO.ED ? Attending Dr: ? Ordering Physician: Generic ED Physician ?? Date of Service: 07/11/24 ?? Procedure(s): XR chest 1V ?? Accession Number(s): [id number] ? cc: Dallas Butler MD; Generic ED Physician ? CLINICAL HISTORY: [...] signed by Hany White MD in OV> ?07/11/242216 ? DD/ 15 ? TD/TT: 07/11/242215 ? Heavy Equipment Rental Manager: ? Procedure Note Donotshirleyter, Image - 07/11/2024 [place] [address] XRay Report Signed Patient: Wendy RiversMR#: [id number] 241 : 1965Acct:[id number] Age/Sex: 58 / FADM Date: 07/11/24 Loc: HO.ED Attending Dr: Ordering Physician: Generic ED Physician Date of Service: 07/11/24 Procedure(s): XR chest 1V Accession Number(s): [id number] cc: Dallas Butler MD; Generic ED Physician [...] in OV> 07/11/242216 DD/ 15 TD/TT: 07/11/242215 Heavy Equipment Rental Manager: [facility] External Provider IMG XR PROCEDURES Final Result * (ABNORMAL) Lactic Acid (07/11/2024 9:45 PM EST) Lactic Acid 2.6(HH) 0.5 - 2.0 mmol/L [facility] Comment:Critical value for t est(s): LACTIC ACID Results called toand read back by: ANNE Person calling: [email or web address] Date:07/11/24 Time:2218 07/11/2024 9:45 PM EST 07/11/2024 9:49 PM EST us Generic External Data Provider LAB BLOOD ORDERAB LES Final Result Performing Organization Address [facility]/ZIP Co de Phone Number [facility] [address] [place] [phone] * (ABNORMAL) Urinalysis, Complete, with Reflex to Culture (07/11/2024 9:43 PM EST) Color Urine Yellow [facility] Appearance Urine Clear [facility] PH 5.5 5.0 - 9.0 [facility] Glucose Urine UA >=1000(A) Negative mg/dL [facility] Urine Blood Trace(A) Negative [facility] Specific [place] - Urine >=1.030(H) 1.005 - 1.025 [facility] Urine Protein 30 (1+)(A) Neg-Trace mg/dL [facility] Urine Ketones >=160 Negative mg/dL [facility] Nitrite Urine Negative Negative [facility] Leukocyte Esterase Urine Negative Negative [facility] RBC Urine 0-2 0 - 2 /HPF [facility] Urine WBC 0-5 0 - 5 /HPF [facility] Urine Squamous Epithelial Cell 0-2 0 - 2 /HPF [facility] Urine Bacteria None Seen None Seen [facility] Hyaline Casts, Urine 0-2 0 - 2 /LPF [facility] 07/11/2024 9:43 PM EST 07/11/2024 9:49 PM EST Narrative [facility] - 07/11/2024 9:59 PM EST Urine, Clean Catch us Generic External Data Provider LAB URINE ORDERAB LES Final Result Performing Organization Address [facility] Co de Phone Number [facility] [address] [place] [phone] * (ABNORMAL) SARS-CoV-2 RNA, Influenza A/B, and RSV RNA, Ql NAAT (07/11/2024 9:43 PM EST) Pathologist [facility] Influenza A PCR POSITIVE(A) Negative [facility] Influenza B PCR NEGATIVE Negative [facility] Resp Syncy Virus RNA Qual PCR NEGATIVE Negative [facility] SARS COV2 PCR NEGATIVE Negative [facility] Comment:All test results mus t [...] use by authorized laboratories.Testing performed on the [employer] GeneXpert utilizingreal-time RT-PCR.All SARS CoV2 and positive influenza A/B results arereported to [facility]. 07/11/2024 9:43 PM EST 07/11/2024 9:49 PM EST us Generic External Data Provider LAB MICROBIOLOGY - GENERAL ORDERABLES Final Result [facility] [address] [place] [phone] * Drug Monitoring, Panel 1, Screen, Urine (07/11/2024 9:43 PM EST) [facility] Opiate Screen Urine Not Detected Not Detect [facility] Comment:Opiate cut-off is 30 0 ng/mL.Positive results are unconfirmed and should not be used fornon-medical purposes. Barbiturates, Urine Not Detected Not Detect [facility] Comment:Barbiturate cut-off is 200 ng/mL.Positive results are unconfirmed and should not be used fornon-medical purposes. Phencyclidine Screen Urine Not Detected Not Detect [facility] Comment:Phencyclidine cut-of f is 25 ng/mL.Positive results are unconfirmed and should not be used fornon-medical purposes. Amphetamine Screen Urine Not Detected Not Detect [facility] Comment:Amphetamine cut-off is 1000 ng/mL.Positive results are unconfirmed and should not be used fornon-medical purposes. Benzodiazepines Screen Urine Not Detected Not Detect [facility] Comment:Benzodiazepine cut-o ff is 200 ng/mL.Positive results are unconfirmed and should not be used fornon-medical purposes. Cocaine Screen Urine Not Detected Not Detect [facility] Comment:Cocaine cut-off is 3 00 ng/mL.Positive results are unconfirmed and should not be used fornon-medical purposes. Cannabinoid Screen Urine Not Detected Not Detect [facility] Comment:Cannabinoid cut-off is 50 ng/mL.Positive results are unconfirmed and should not be used fornon-medical purposes. Methadone Screen, Urine Not Detected Not Detect ng/mL [facility] Comment:Methadone cut-off is 300 ng/mL.Positive results are unconfirmed and should not be used fornon-medical purposes. FENTANYL URINE Not Detected Not Detect [facility] Comment:Fentanyl cut-off is 1 ng/mL.Positive results are unconfirmed and should not be used fornon-medical purposes. Oxycodone Urine Screen Not Detected Not Detect ng/mL [facility] Comment:Oxycodone cut-off is 100 ng/mL.Positive results are unconfirmed and should not be used fornon-medical purposes. Buprenorphine Screen Not Detected Not Detect ng/mL [facility] Comment:Buprenorphine cut-of f is 5 ng/mL.Positive results are unconfirmed and should not be used fornon-medical purposes. 07/11/2024 9:43 PM EST 07/11/2024 9:49 PM EST us Generic External Data Provider LAB URINE ORDERAB LES Final Result [facility] [address] [place] [phone] * (ABNORMAL) CBC auto differential (07/11/2024 9:43 PM EST) White Blood Count 9.4 4.8 - 10.8 X10*3/uL [facility] Red Blood Count 5.53(H) 4.20 - 5.50 X10*6/uL [facility] Hemoglobin 15.1 12.0 - 16.0 g/dl [facility] Hematocrit 44.1 37.0 - 47.0 % [facility] Mean Corpuscular Volume 79.7(L) 80.0 - 98.0 fL [facility] Mean Corpuscular Hemoglobin 27.3 27.0 - 33.0 pg [facility] Mean Corpuscular HGB Conc 34.2 31.0 - 35.0 g/dl [facility] Red Cell Distribution Width 12.5 11.0 - 16.0 % [facility] Platelet Count 271 160 - 400 X10*3/uL [facility] Mean Platelet Volume 10.3 9.4 - 12.3 fL [facility] Neutrophils Percent Auto 89.5(H) 45 - 73 % [facility] Imm Gran Pct Auto 0.3 0.0 - 0.4 % [facility] Lymphocytes Percent Auto 4.9(L) 20 - 40 % [facility] Monocytes Percent Auto 3.9 2 - 11 % [facility] Eosinophils Percent Auto 1.0 0 - 4 % [facility] Basophils Percent Auto 0.4 0 - 2 % [facility] NRBC Pct Auto 0.0 0.0 - 0.2 /100WBC [facility] Neutrophils Absolute Auto 8.4(H) 2.0 - 8.3 x10*3/uL [facility] Imm Gran Abs Auto 0.03 0.00 - 0.03 X10*3/uL [facility] Lymphocytes Absolute Auto 0.5(L) 1.2 - 4.9 X10*3/uL [facility] Monocytes Absolute Auto 0.4 0.1 - 1.2 X10*3/uL [facility] Eosinophils Absolute Auto 0.1 0.0 - 0.4 X10*3/uL [facility] Basophils Absolute Auto 0.0 0.0 - 0.2 X10*3/uL [facility] NRBC Abs Auto 0.000 0.0 - 0.012 X10*3/uL [facility] 07/11/2024 9:43 PM EST 07/11/2024 9:49 PM EST us Generic External Data Provider LAB BLOOD ORDERAB LES Final Result [facility] [address] [place] [phone] * (ABNORMAL) Comprehensive Metabolic Panel (07/11/2024 9:43 PM EST) Sodium 130(L) 135 - 145 mmol/L [facility] Potassium 4.4 3.3 - 5.1 mmol/L [facility] Chloride 95(L) 96 - 108 mmol/L [facility] Carbon Dioxide 19(L) 22 - 29 mmol/L [facility] Anion Gap 20 12 - 20 [facility] Urea Nitrogen (BUN) 12 9 - 16 mg/dL [facility] Creatinine, Serum 0.78 0.5 - 1.4 mg/dL [facility] Creatinine Clr Calc Pharmacy 68.7 [facility] Comment:Provided height and weight: 162.56 cm,63.503 kg.eGFR (calculated from the MDRD study equation) and eCrCl(calculated from the Cockcroft-Gault equation) are based ondifferent parameters and may not yield comparable results.If eCrCl result is absurd, please check patient'sheight/weight. Estimated Glomerular Filt Rate >60 [facility] Comment:Chronic Kidney Disea se: Estimated GFR < 60 mL/min/1.77b9Edpwui Kidney Disease: Estimated GFR < 15 mL/min/1.73m2 Glucose 497(HH) 60 - 115 mg/dL [facility] Comment:Critical value for t est(s): GLUCOSE Results called to jenny back by: ANNE Person calling:[email or web address] Date: 07/11/24Time:2209 Calcium 9.6 8.4 - 10.2 mg/dL [facility] Bilirubin, Total 1.2(H) 0.0 - 1.0 mg/dL [facility] Aspartate Amino Transferase 16 5 - 31 U/L [facility] Alanine Aminotransferase 14 0 - 31 U/L [facility] Total Protein 8.2(H) 6.5 - 8.0 g/dL [facility] Albumin Level 4.1 3.5 - 5.0 g/dL [facility] Alkaline Phosphatase 105 39 - 117 U/L [facility] 07/11/2024 9:43 PM EST 07/11/2024 9:49 PM EST us Generic External Data Provider LAB BLOOD ORDERAB LES Final Result Performing Organization Address [facility]/ZIP Co de Phone Number [facility] [address] [place] [phone] * (ABNORMAL) Glucose, Whole Blood (07/11/2024 9:15 PM EST) Glucose, Whole Blood 495(HH) 60 - 115 mg/dL [facility] Comment:METER #: [id number] 07/11/2024 9:15 PM EST 07/11/2024 9:19 PM EST us Generic External Data Provider LAB BLOOD ORDERAB LES Final Result Performing Organization Address [facility] Co de Phone Number [facility] [address] [place] [phone] * US Retroperitoneal Complete (05/09/2024 10:00 AM EST) Anatomical Region Laterality Modality Ultrasound 05/09/2024 10:0 0 AM EST Narrative 05/23/2024 9:16 AM EST ? [facility] ?[address] ?[place] [address] ? Ultrasound Report ? Signed ? Patient: Rivers,Wendy ?MR#: [id number] ?? 241 ? : 1965 ?Acct:[id number] ? Age/Sex: 58 / F ?ADM Date: 12/27/24 ? Loc: HO.US ? Attending Dr: Nicolette DURBIN ? Ordering Physician: Nicolette Rivers ?? Date of Service: 05/09/24 ?? Procedure(s): US retroperitoneal comp ?? Accession Number(s): [id number] ? cc[facility] TitaNicolette DRUBIN[facility] ? EXAMINATION: ?? US RETROPERITONEAL COMPLETE (RENAL) ? CLINICAL INFORMATION: ?? Other symptoms and signs involving the genitourinary system. ? COMPARISON: ?? CT abdomen and pelvis 03/18/2024. X-ray KUB 12/16/2021. ? TECHNIQUE: ?? Real-time imaging of the kidneys and bladder. ? FINDINGS: ? RIGHT KIDNEY: 12.1 x 4.1 x 5.7 cm (SAG x AP x TRV). The kidney is ?? normal in size, contour, and echogenicity. Renal cortical thickness is ?? normal. No calculi or focal parenchymal lesions. No hydronephrosis. ? LEFT KIDNEY: 11.2 x 4.9 x 5.8 cm (SAG x AP x TRV). The kidney is normal ?? in size, contour, and echogenicity. Renal cortical thickness is normal. ?? No calculi or focal parenchymal lesions. No hydronephrosis. ? BLADDER: Partially distended. Bilateral ureteral jets are demonstrated. ?? No wall thickening or masses. Prevoid bladder volume is 90.1 mL. ?? Postvoid bladder volume is 5.0 mL. ? US/US retroperitoneal comp ?? IMPRESSION: ?? Normal retroperitoneal ultrasound. ? Electronically signed by: ??Amish Chicas MD ??05/23/2024 09:14 AM EST RP ?? Workstation: [id number] ? Dictated By: ?Amish Chicas MD ? Signed By: ?<Electronically signed by Amish Chicas MD in OV> ?05/23/24 09 ? DD/ 1000 ? TD/TT: 05/09/24 1021 ? Heavy Equipment Rental Manager: ? Procedure Note Gena Redding - 05/23/[address] [address] Ultrasound Report Signed Patient: Alyce RiversashantiMR#: [id number] 241 : 1965Acct:[id number] Age/Sex: 58 / FADM Date: 05/09/24 Loc: HO.US Attending Dr: Nicolette MI Ordering Physician: Nicolette Rivers Date of Service: 05/09/24 Procedure(s): US retroperitoneal comp Accession Number(s): [id number] cc: Nicolette Rivers; [facility] EXAMINATION: US RETROPERITONEAL COMPLETE (RENAL) CLINICAL INFORMATION: Other symptoms and signs involving the genitourinary system. COMPARISON: CT abdomen and pelvis 03/18/2024. X-ray KUB 12/16/2021. TECHNIQUE: Real-time imaging of the kidneys and bladder. FINDINGS: RIGHT KIDNEY: 12.1 x 4.1 x 5.7 cm (SAG x AP x TRV). The kidney is normal in size, contour, and echogenicity. Renal cortical thickness is normal. No calculi or focal parenchymal lesions. No hydronephrosis. LEFT KIDNEY: 11.2 x 4.9 x 5.8 cm (SAG x AP x TRV). The kidney is normal in size, contour, and echogenicity. Renal cortical thickness is normal. No calculi or focal parenchymal lesions. No hydronephrosis. BLADDER: Partially distended. Bilateral ureteral jets are demonstrated. No wall thickening or masses. Prevoid bladder volume is 90.1 mL. Postvoid bladder volume is 5.0 mL. US/US retroperitoneal comp IMPRESSION: Normal retroperitoneal ultrasound. Electronically signed by: Amish Chicas MD 05/23/2024 09:14 AM EST Dictated By: Amish Chicas MD Signed By: <Electronically signed by Amish Chicas MD in OV> 05/23/24 0914 DD/ 1000 TD/TT: 05/09/24 1021 Heavy Equipment Rental Manager: [facility] External Provider IMG US PROCEDURES Final Result * US Abdomen Limited (05/09/2024 9:45 AM EST) Anatomical Region Laterality Modality Abdomen Ultrasound 05/09/2024 9:45 AM EST Narrative 05/23/2024 9:15 AM EST ? [facility] ?[address] ?[place] [address] ? Ultrasound Report ? Signed ? Patient: Rivers,Wendy ?MR#: [id number] ?? 241 ? : 1965 ?Acct:[id number] ? Age/Sex: 58 / F ?ADM Date: 05/09/24 ? Loc: HO.US ? Attending Dr: Nicolette MIRANDA- ? Ordering Physician: Dolores Pradhan ?? Date of Service: 05/09/24 ?? Procedure(s): US abdomen limited ?? Accession Number(s): [id number] ? cc: Dolores Pradhan ? EXAMINATION: ?? US ABDOMEN LIMITED ? CLINICAL INFORMATION: ?? Gallstones, dilated common bile duct.. ? COMPARISON: ?? None available. Correlation made with CT abdomen and pelvis without ?? contrast 03/18/2024. ? TECHNIQUE: ?? Real-time imaging of the right upper quadrant abdominal viscera. ? FINDINGS: ? PANCREAS: Visualized portions are unremarkable. ? LIVER: The liver is normal in size. The liver contour is normal. There ?? is diffuse increased liver parenchymal echogenicity, consistent with ?? hepatic steatosis. ??No focal hepatic lesion. There is no intrahepatic ?? biliary duct dilatation seen. ? GALLBLADDER: The gallbladder is physiologically distended without ?? evidence of stones, sludge, polyps, wall thickening or pericholecystic ?? fluid. ? COMMON BILE DUCT: Normal in caliber measuring 0.3 cm in diameter. ? RIGHT KIDNEY: Refer to dedicated retroperitoneal ultrasound performed ?? concurrently. ? FREE FLUID: None. ? US/US abdomen limited ?? IMPRESSION: ?? 1. Echogenic liver suggestive of hepatic steatosis. No focal lesion. ?? 2. No evidence of dilated bile ducts. ?? 3. Remainder of the exam is normal. ? Electronically signed by: ??Amish Chicas MD ??05/23/2024 09:12 AM EST RP ? Dictated By: ?Amish Chicas MD ? Signed By: ?<Electronically signed by Amish Chicas MD in OV> ?05/23/24 0912 ? DD/DT: 05/09/ 0945 ? TD/TT: 05/09/24 0954 ? Heavy Equipment Rental Manager: ? Procedure Note Donotuseinterpreter, Image - 05/23/2024 [place] [address] Ultrasound Report Signed Patient: Wendy RiversMR#: [id number] 241 : 1965Acct:[id number] Age/Sex: 58 / FADM Date: 05/09/24 Loc: HO.US Attending Dr: Nicolette Rivers EXERCISE MANAGER- Ordering Physician: Dolores PradhanP Date of Service: 05/09/24 Procedure(s): US abdomen limited Accession Number(s): [id number] cc: LorneDolores nunez [facility] EXAMINATION: US ABDOMEN LIMITED CLINICAL INFORMATION: Gallstones, dilated common bile duct.. COMPARISON: None available. Correlation made with CT abdomen and pelvis without contrast 03/18/2024. TECHNIQUE: Real-time imaging of the right upper quadrant abdominal viscera. FINDINGS: PANCREAS: Visualized portions are unremarkable. LIVER: The liver is normal in size. The liver contour is normal. There is diffuse increased liver parenchymal echogenicity, consistent with hepatic steatosis. No focal hepatic lesion. There is no intrahepatic biliary duct dilatation seen. GALLBLADDER: The gallbladder is physiologically distended without evidence of stones, sludge, polyps, wall thickening or pericholecystic fluid. COMMON BILE DUCT: Normal in caliber measuring 0.3 cm in diameter. RIGHT KIDNEY: Refer to dedicated retroperitoneal ultrasound performed concurrently. FREE FLUID: None. US/US abdomen limited IMPRESSION: 1. Echogenic liver suggestive of hepatic steatosis. No focal lesion. 2. No evidence of dilated bile ducts. 3. Remainder of the exam is normal. Electronically signed by: Amish Chicas MD 05/23/2024 09:12 AM [facility] Dictated By: Amish Chicas MD Signed By: <Electronically signed by Amish Chicas MD in OV> 05/23/24911 DD/ 0945 TD/TT: 05/09/24 0954 Heavy Equipment Rental Manager: us [facility] IMG US PROCEDURES Final Resul t * BI Mammogram Screening Tomosynthesis Bilateral (03/01/2023 12:51 PM EDT) Anatomical Region Laterality Modality Breast Bilateral Mammography 03/01/2023 12:5 1 PM EDT Narrative 03/15/2023 9:27 AM EDT ? [facility] ? [address] ?[place] [address] ? Mammography Report ? Signed ? Patient: Wendy Rivers ?MR#: [id number] ?? 241 ? : 1965 ?Acct:[id number] ? Age/Sex: 57 / F ?ADM Date: 03/01/23 ? Loc: HO.MAMMO ? Attending Dr: Dallas Butler MD ? Ordering Physician: Dallas Butler MD ?Resu ?? lts: 1Negative ? Date of Service: 03/01/23 ?Follow Up: 1 Year From Orig ?? inal Mammogram ? Procedure(s): MM tomosynthesis screening BI ?? Accession Number(s): [id number] ? cc: Dallas Butler MD ? EXAMINATION: ?? MM SCREENING DIGITAL BREAST TOMOSYNTHESIS, BILATERAL ? CLINICAL INFORMATION: ? Screening. Asymptomatic. ? COMPARISON: ?? Mammography: 01/28/2022, 01/02/2017, 12/07/2015. ? TECHNIQUE: ?? Digital breast tomosynthesis is performed in both the craniocaudal and ?? mediolateral oblique views along with computer-aided detection (CAD). ?? Synthesized 2D images are generated from the tomosynthesis. ? FINDINGS: ?? There are scattered areas of fibroglandular density (ACR BI-RADS breast ?? composition Category b). ? There are no suspicious masses, suspicious grouped calcifications, or ?? areas of architectural distortion in either breast. The parenchymal ?? pattern is stable from prior exams. There are vascular calcifications ?? bilaterally. ??There are no skin or axillary abnormalities. ? MM/MM tomosynthesis screening BI ?? IMPRESSION: ?? No mammographic evidence of malignancy. ? ASSESSMENT: ? BI-RADS BI-RADS 1 - Negative ? RECOMMENDATION: ?? Routine annual mammography screening. ? 1 year F/U ? This examination should not preclude the clinical evaluation of a ?? suspicious palpable abnormality. ? This patient's information was entered into a reminder system with a ?? target due date for their next mammogram. ? Dictated By: ?Amish Chicas MD ? Signed By: ?<Electronically signed by Amish Chicas MD in OV> ?03/15/23922 ? DD/ 1251 ? TD/TT: ? Heavy Equipment Rental Manager: ? Procedure Note Vahid, Image - 03/20/2023 [place] [facility] [address] [place] [address] Mammography Report Signed Patient: Wendy Rivers#: [id number] 241 : 1965Acct:[id number] Age/Sex: 57 / FADM Date: 03/01/23 Loc: [place] Attending Dr: Dallas Butler MD Ordering Physician: Dallas Butler MDResu lts: 1Negative Date of Service: 03/01/23Follow Up: 1 Year From Orig inal Mammogram Procedure(s): MM tomosynthesis screening BI Accession Number(s): [id number] cc: Dallas Butler MD EXAMINATION: MM SCREENING DIGITAL BREAST TOMOSYNTHESIS, BILATERAL CLINICAL INFORMATION: Screening. Asymptomatic. COMPARISON: Mammography: 01/28/2022, 01/02/2017, 12/07/2015. TECHNIQUE: Digital breast tomosynthesis is performed in both the craniocaudal and mediolateral oblique views along with computer-aided detection (CAD). Synthesized 2D images are generated from the tomosynthesis. FINDINGS: There are scattered areas of fibroglandular density (ACR BI-RADS breast composition Category b). There are no suspicious masses, suspicious grouped calcifications, or areas of architectural distortion in either breast. The parenchymal pattern is stable from prior exams. There are vascular calcifications bilaterally. There are no skin or axillary abnormalities. MM/MM tomosynthesis screening BI IMPRESSION: No mammographic evidence of malignancy. ASSESSMENT: BI-RADS BI-RADS 1 - Negative RECOMMENDATION: Routine annual mammography screening. 1 year F/U This examination should not preclude the clinical evaluation of a suspicious palpable abnormality. This patient's information was entered into a reminder system with a target due date for their next mammogram. Dictated By: Amish Chicas MD Signed By: <Electronically signed by Amish Chicas MD in OV> 03/15/23 0923 DD/ 1251 TD/TT: Heavy Equipment Rental Manager: Dallas Romero MD IMG BI PROCEDURES Mykel andrés Result - Final * (ABNORMAL) Lipid Panel with Reflex to Direct LDL (06/01/2022 9:27 AM EST) Cholesterol, Total 90 <200 mg/dL [facility] HDL Cholesterol 35(L) > OR = 50 mg/dL [facility] Triglycerides 113 <150 mg/dL [facility] LDL Cholesterol 35 mg/dL (calc) [facility] Comment: Reference range: <100 Desirable range <100 mg/dL for primary prevention; ?? <70 mg/dL for patients with CHD or diabetic patients with > or = 2 CHD risk factors. LDL-C is now calculated using the Cam-Castaneda calculation, which is a validated novel method providing better accuracy than the Friedewald equation in the estimation of LDL-C. Cam SS et al. RONNIE. 2013;310(19): 7190-8401 (http://education.[employer].BOSS Metrics/faq/KVK752) Chol/HDLC Ratio 2.6 <5.0 (calc) [facility] [place] [employer] Non-HDL Cholesterol 55 <130 mg/dL (calc) [facility] [place] [employer] Comment: For patients with diabetes plus 1 major ASCVD risk factor, treating to a non-HDL-C goal of <100 mg/dL (LDL-C of <70 mg/dL) is considered a therapeutic option. 06/01/2022 9:27 AM EST 06/01/2022 9:27 AM EST Narrative [facility] - 06/01/2022 9:35 PM EST FASTING:YES PATIENT UNABLE TO VOID; ADVISED TO RETURN FOR COLLECTION. FASTING: YES Dallas Romero MD LAB BLOOD ORDERABLES Final Result Performing Organization Address City/[facility]/ZIP Co de Phone Number [facility] [address], [place] [address] [facility] [place] [employer] 200 [facility], (Nl2) [place] [address] * MICROALBUMIN/CREATININE RATIO, RANDOM URINE (02/08/2022 12:15 PM EDT) Creatinine Urine 57.23 mg/dL [facility] Microalbum/Creati nine Ratio Ur TNP ug/mg cr [facility] Comment: Unable to calculate albumin/creatinine ratio due to low microalbumin or creatinine result. Microalbumin Urine <5.0 mg/L [facility] 02/08/2022 12:1 5 PM EDT Historical Provider HISTORICAL/NON ORDERABLE LABS Final Result [facility] [address] [place] [address], * THINPREP PAP (12/29/2020 9:22 AM EDT) Clinical Information: None given [facility] COMMENT SEE [facility]MENT [facility] Comment: EXPLANATORY NOTE: ? The Pap is a screening test for cervical cancer. It is ?? not a diagnostic test and is subject to false negative ?? and false positive results. It is most reliable when a ?? satisfactory sample, regularly obtained, is submitted ?? with relevant clinical findings and history, and when ?? the Pap result is evaluated along with historic and ?? current clinical information. ?? Hatch Tender : SEE COMMENT [facility] Comment: KF, CT(ASCP) CT screening location: [address] ??[address] Interpretation/R esult: Negative for intraepithelial lesion or malignancy. [facility] LMP: NONE [facility]IV[facility] Prev. BX: NONE [facility]IV[facility] Prev. PAP: NONE [facility]IVEN [facility] SOURCE: None given [facility] Statement Of Adequacy: SEE COMMENT [facility] Comment: Satisfactory for evaluation. Endocervical/transformation zone component absent. Age and/or menstrual status not provided 12/29/2020 9:22 AM EDT Nancy CRAVEN LAB PATHOLOGY ORDERABLES Final Result [facility] [address] * HPV mRNA E6/E7 (12/29/2020 9:22 AM EDT) HPV nRNA E6/E7 Not Detected Not Detected [facility] Comment: Methodology: Adult Specialist-Mediated Amplification This assay detects E6/E7 viral messenger RNA (mRNA) from 14 high-risk HPV types (16,18,31,33,35,39,45,51,52,56,58,59,66,68). ? The analytical performance characteristics of this assay have been determined by [facility]. The modifications have not been cleared or approved by the FDA. This assay has been validated pursuant to the CLIA regulations and is used for clinical purposes. ?? 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
--- OUTSIDE RECORDS SUMMARY | 2024-07-30 16:12 | XMS_ITS | Encounter Summary ---
Author Organization [employer] Address [address] 7[address] [place] [address] Care Team Providers Care Home Sales Service Professional Name Role Phone Dallas Menard MD Primary Care Provide r Encounter Details Date Type Department Care Team ([facility] st Contact Info) Description 06/19/2024 Refill [facility] [address] [place], [place] [phone] Dallas Menard MD [address] [place], [place] [phone] Hypertension associated with diabetes (CMS/HCC) (CMS/HCC) Social [...] documented as of this encounter Care Teams Home Sales Service Professional Relationship Specialty Start Date End Date Dallas Menard MD [address] [place] [address] PCP - General Internal Medicine 08/11/15 documented as of this encounter
--- OUTSIDE RECORDS SUMMARY | 2024-07-30 16:13 | XMS_ITS | Encounter Summary ---
Author Organization [employer] Address [address] [place] [address] Care Team Providers Care Warpman Name Role Phone Dallas Menard MD Primary Care Provide r Reason for Visit * Reason Comments Med Refill Encounter Details Date Type Department Care Team ([facility] st Contact Info) Description 12/22/2023 Refill [facility] [address] [place], [place] [phone] Dallas Menard MD [address] [place] [address] Chronic abdominal pain Social History Tobacco Use [...] documented as of this encounter Care Teams Warpman Relationship Specialty Start Date End Date Dallas Menard MD [address] [place] [address] PCP - General Internal Medicine 08/11/15 documented as of this encounter
--- OUTSIDE RECORDS SUMMARY | 2024-07-30 16:13 | XMS_ITS | Encounter Summary ---
Author Organization [employer] Address [address] [facility] 7t [place] [address] Care Team Providers Care Simulation Engineer Name Role Phone Dallas Menard MD Primary Care Provide r Reason for Visit * Reason Comments Transition Of Care (Tcm) HDF- Encounter Details Date Type Department Care Team ([facility] st Contact Info) Description 07/16/2024 Patient Outreach [facility] MED[facility]INE [address] [place], [place] [phone] Dallas Menard MD [address] [place], [place] [phone] Transition Of Care (Tcm) (HDF- ) Social History Tobacco Use Types Packs/Day Years [...] as of this encounter Miscellaneous Notes * Significant Event - Disha Plasencia - 07/16/2024 11:55 AM EST 07/16/24 1152 Hospital Discharges and Admission for [facility] Type of Visit Hospital Admission Date of Admission/Visit 07/12/24 Date of Discharge 07/15/24 Facility Diagnosis Hypertension Disposition Discharged Home Follow-Up Actions Follow-Up Needed Provider appointment Follow-Up Outcome Spoke to Caregiver;Booked Appointment Initial Contact Date 07/16/24 irvin Graham outbound call to patient for HDF outreach. Patient's name and were confirmed. Patient educated on the importance of follow up with provider following inpatient admission. Patient offered an HDF appt. Patient is agreeable to an appointment and has been scheduled for 07/29/2024 at 9:[address] Bernstein . Insurance verified prior to scheduling. Patient advised to bring to appointment a photo id and insurance card. Patient also notified that a health center pharmacist will be reaching out to them via telephone prior to their scheduled appointment in order to review their medications in preparation for their appointment. Patient provided with education on contacting the Health Center with any questions or concerns prior to the scheduled appointment. Patient educated on extended clinic hours on Mondays and Wednesdays, and Walk-In Urgent Care Located in [facility] of [facility]. Patient provided with after-hours line for [facility], , which offer night time triage service and option to transfer to occupational health nurse manager provider if needed. Discharge summary scanned into chart. documented in this encounter Plan of Treatment Not on file documented as of this encounter Visit Diagnoses Not on filedocumented in this encounter Additional Health Concerns Assessment Noted Time PHQ-9 Depression Total Score: 14 024 3:35 PM EDT documented as of this encounter Care Teams Simulation Engineer Relationship Specialty Start Date End Date Dallas Menard MD [address] [place] [address] PCP - General Internal Medicine 08/11/15 documented as of this encounter
--- OUTSIDE RECORDS SUMMARY | 2024-07-30 16:13 | XMS_ITS | Encounter Summary ---
Author Organization [employer] Address [address] [facility] 7t [place] [address] Care Team Providers Care Interventional Radiology Tech Name Role Phone Dallas Menard MD Primary Care Provide r Reason for Visit * Reason Comments Med Refill Encounter Details Date Type Department Care Team ([facility] st Contact Info) Description 08/10/2023 Refill [facility] MEDICINE [address] [place], [place] [phone] Dallas Menard MD [address] [place], [place] [phone] Chronic abdominal pain Social History Tobacco Use Types Packs/Day Years Used Date Smoking Tobacco: Never Passive Smoke Exposure: Never Smokeless Tobacco: Never Alcohol Use Standard Drinks/Week Comments Not Currently 0 (1 standard drink = 0.6 oz pur e alcohol) Depression Answer Date Recorded Patient Health Questionnaire-9 Score 23 07/19/2023 Patient Health Questionnaire-9 Score 23 07/19/2023 Last PHQ-9: Questionnaire Data Not on file 0 07/19/2023 Housing Stability Answer Date Recorded What is [...] Answer Date Recorded Patient Health Questionnaire-2 Score 5 07/19/2023 Comments Unknown Sex and Gender Information Value [...] Assessment Noted Time PHQ-9 Depression Total Score: 23 024 9:40 AM EST documented as of this encounter Care Teams Interventional Radiology Tech Relationship Specialty Start Date End Date Dallas Menard MD [address] [place] [address] PCP - General Internal Medicine 08/11/15 documented as of this encounter
--- OUTSIDE RECORDS SUMMARY | 2024-07-30 16:13 | XMS_ITS | Encounter Summary ---
Author Organization [employer] Address [address] [facility] 7t [place] [address] Care Team Providers Care Tuyere Fitter Name Role Phone Dallas Menard MD Primary Care Provide r Reason for Visit * Reason Onset Date Comments Med Refill 12/27/2023 Encounter Details Date Type Department Care Team ([facility] st Contact Info) Description 12/27/2023 Telephone [facility] MEDICINE [address] [place], [place] [phone] Dallas Menard MD [address] [place] [address] Med Refill Social History Tobacco Use Types Packs/Day Years [...] encounter Miscellaneous Notes * Telephone Encounter - Jennifer Lopez LPN - 12/27/2023 9:30 AM EDT Medication pended to PCP. * Telephone Encounter - Christina Grant - 12/27/2023 9:14 AM EDT TC from pt requesting medication refill. Medications needing refill : gabapentin (Neurontin) 100 MG capsule To be sent to: [facility] - [place], [place] - [address] [facility] documented in this encounter Plan of Treatment Not on file documented as of this encounter Visit Diagnoses Not on filedocumented in this encounter Additional Health Concerns Assessment Noted Time PHQ-9 Depression Total Score: 14 024 3:35 PM EDT documented as of this encounter Care Teams Tuyere Fitter Relationship Specialty Start Date End Date Dallas Menard MD [address] [place] [address] PCP - General Internal Medicine 08/11/15 documented as of this encounter
--- OUTSIDE RECORDS SUMMARY | 2024-07-30 16:13 | XMS_ITS | Encounter Summary ---
Author Organization [employer] Address [address] [place] [address] Care Team Providers Care Iron Pourer Name Role Phone Dallas Menard MD Primary Care Provide r Encounter Details Date Type Department Care Team (Late st Contact Info) Description 05/22/2022 Orders Only [facility] & PEDS [address] [place], [place] [phone] Jennifer Lopez LPN Social History Tobacco Use Types Packs/Day Years Used Date Smoking Tobacco: Never Assessed Comments Unknown Sex and Gender Information Value Date Recorded Sex Assigned at Female 03/13/2022 10:15 AM EDT Legal Sex Female 10:15 AM EDT Gender Identity Female 03/13/2022 10:15 AM EDT Sexual Orientation Straight 03/13/2022 10 :15 AM EDT documented as of this encounter Plan of Treatment Not on file documented as of this encounter Visit Diagnoses Not on filedocumented in this encounter Care Teams Iron Pourer Relationship Specialty Start Date End Date Dallas Menard MD [address] [place] [address] PCP - General Internal Medicine 08/11/15 documented as of this encounter
--- OUTSIDE RECORDS SUMMARY | 2024-07-30 16:13 | XMS_ITS | Encounter Summary ---
Author Organization [employer] Address [address] [facility] 7t [place] [address] Care Team Providers Care Delivery Table Feeder Name Role Phone Dallas Menard MD Primary Care Provide r Encounter Details Date Type Department Care Team (Late st Contact Info) Description 07/30/2024 Orders Only GENERIC EXTERNAL DATA [...] housing situation today? I have delonte sing 07/29/[address] you li [...] WHOLE BLOOD Routine 07/30/2024 2:03 PM EDT documented in this encounter Results * (ABNORMAL) Glucose, Whole Blood (07/30/2024 2:03 PM EDT) Glucose, Whole Blood 380(HH) 60 - 115 mg/dL [facility] Comment:METER #: [id number] Testing performed in the Endocrinology Department [address], [address], [facility]. 07/30/2024 2:03 PM EDT 07/30/2024 2:08 PM EDT us Generic External Data Provider LAB BLOOD ORDERAB LES Final Result [facility] [address] [place] [phone] documented in this encounter Visit Diagnoses Not on filedocumented in this encounter Additional Health Concerns Assessment Noted Time PHQ-9 Depression Total Score: 12 025 10:47 AM EDT documented as of this encounter Care Teams Delivery Table Feeder Relationship Specialty Start Date End Date Dallas Menard MD [address] [place] [address] PCP - General Internal Medicine 08/11/15 documented as of this encounter
--- OUTSIDE RECORDS SUMMARY | 2024-07-30 16:13 | XMS_ITS | Encounter Summary ---
Author Organization [employer] Address [address] [facility] 7t [place] [address] Care Team Providers Care Review Trainer Name Role Phone Dallas Menard MD Primary Care Provide r Encounter Details Date Type Department Care Team ([facility] st Contact Info) Description 06/19/2022 Orders Only [facility] MED & PEDS [address] [place], [place] [phone] Jennifer Lopez LPN Social History Tobacco Use [...] Orientation Straight 03/13/2022 10 :15 AM EDT COVID-19 Exposure Response Date Recorded In the last 10 days, have yo u been in contact with someone who was confirmed or suspected to have Coronavirus/COVID-19? No / Unsure 05/30/2022 11:33 AM EST documented as of this encounter Plan of Treatment Not on file documented as of this encounter Visit Diagnoses Not on filedocumented in this encounter Additional Health Concerns Assessment Noted Time PHQ-9 Depression Total Score: 5 05/30/19 23 11:51 AM EST documented as of this encounter Care Teams Review Trainer Relationship Specialty Start Date End Date Dallas Menard MD [address] [place] [address] PCP - General Internal Medicine 08/11/15 documented as of this encounter
== END 2024-07-30 14:37 | disposition home or self-care (01) ==
LOC: HO.ENCR 13:47
PROVIDERS: PCP Internal Medicine; Visit Provider Nurse Practitioner Adult Health
DX: E11.42 Type 2 diabetes mellitus with diabetic polyneuropathy (principal)

== ENCOUNTER → 2024-07-30 13:46 | Outpatient (BNVA) | payer MEDICAID, SELFPAY | PROVIDERS: PCP Internal Medicine; Visit Provider Nurse Practitioner Adult Health | DX: E11.9 Type 2 diabetes mellitus without complications (principal); Z79.4 Long term (current) use of insulin; Z79.84 Long term (current) use of oral hypoglycemic drugs; Z79.85 Long-term (current) use of injectable non-insulin antidiabetic drugs | CPT/HCPCS: 82947; 83036; 99212 ==

== ENCOUNTER 2024-08-13 10:29 | Outpatient (AMB) | payer MEDICAID, SELFPAY ==
--- NOTE | 2024-08-13 10:35 | A.OFFVIS_ITS ---
Intake Intake Visit Reasons: T2DM Financial Wellness Coach Required: Yes Financial Wellness Coach Language: Gibraltarian Allergies morphine [MORPHINE] Allergy (Intermediate, Verified 07/30/24 14:04) ITCHY, RASH oxycodone Allergy (Verified 07/30/24 14:04) Hives HPI Comprehensive Diabetes Asmnt Most Recent Diabetes Results: Creatinine 0.58 mg/dL (0.5-1.4) 07/14/24 Blood Urea Nitrogen 15 mg/dL (9-16) 07/14/24 Sodium 137 mmol/L (135-145) 07/14/24 Potassium 3.9 mmol/L (3.3-5.1) 07/14/24 Chloride 105 mmol/L (96-108) 07/14/24 Carbon Dioxide 24 mmol/L (22-29) 07/14/24 Calcium 9.2 mg/dL (8.4-10.2) 07/14/24 AST 16 U/L (5-31) 07/11/24 ALT 14 U/L (0-31) 07/11/24 Total Protein 8.2 g/dL (6.5-8.0) H 07/11/24 Albumin 4.1 g/dL (3.5-5.0) 07/11/24 [facility] Medical History Atherosclerotic cardiovascular disease Cardiomyopathy Type 2 diabetes mellitus with diabetic polyneuropathy History of CVA (cerebrovascular accident) Overweight HLD (hyperlipidemia) DM2 (diabetes mellitus, type 2) Asthma Hypertension Depression Myocardial infarction Surgical History Hx of cholecystectomy Hx of section Family History Father No problems noted. Mother No problems noted. Social History Household Members: Family Housing: Apartment Do you presently have visiting nurse or other home services: No Alcohol intake: never Patient Tobacco Use Status: Former Tobacco user service: No Current occupational status: disabled Assessment & Plan Assessment & Plan (1) DM2 (diabetes mellitus, type 2): Code(s): E11.9 - Type 2 diabetes mellitus without complications Plan: Patient at visit to set up an insert Angélica 3+ with reader Patient is vandana TEOFILO, reports that when patient was using freestyle Angélica 2 sensors they had adhesion issues Discussed with patient and PROJECT ANALYST Angélica 3+ sensors are smaller and have less inc idence of falling off. Also at visit today patient was given sample of skin tac wipes to assist with adhesions Patient did not bring CeQur, insulin patch to today's visit. Patient reports that she has used the device in the past and also had adhesion issues with the patches. At this time patient reports she is not interested in restarting CeQur Instructed patient sensors water proof you can shower, or swim do not submerge sensor in water for over 30 minutes Is sensor falls off cannot put back in you need to replace sensor, customer service number given to patient for sensor replacement Sensor placed on the back of right arm Patient left visit with sensor in warmup Reviewed how to interpret trend arrows Discussed lag time between finger stick and sensor data.? Instructed patient the importance of having blood glucometer for backup testing if needed Reviewed delay of CGM from fingersticks Reminded Pt that if symptoms do not match sensor still needs to check fingersticks. Portions of this note were created using voice recognition software, please excuse any words or phrases that may have been misinterpreted. Patient Instructions: Patient instruction: CGM provides information on blood glucose control throughout the day, including hyperglycemia and hypoglycemia. ? Continue to monitor blood glucose as instructed. Follow nutrition guidelines provided. Report any discomfort promptly to health care provider. ?Stay well-hydrated. You can bathe ,shower, swim and exercise while wearing the glucose sensor. Do not submerge glucose sensor in water for more than 30 minutes. Instrucciones para el paciente: CGM proporciona informaci?n sobre el control de la glucosa en leopoldo a lo ladarius del d?a, incluidas la hiperglucemia y la hipoglucemia. Contin?e controlando la glucosa en leopoldo seg?n las instrucciones. Siga las pautas de nutrici?n proporcionadas. Informe cualquier molestia de inmediato al proveedor de atenci?n m?dica. Mantente kirit hidratado. Puede ba?arse, ducharse, nadar y hacer ejercicio mientras usa el sensor de glucosa. No sumerja el sensor de glucosa en agua will m?s de 30 minutos. Retire el sensor para cathy resonancia magn?taylor o cathy tomograf?a computarizada. Evite la m?quina de mitch X en los aeropuertos: retire el sensor o solicite la varita Coding Level of Care Code Est Pt Level 1 (98357) Diagnoses DM2 (diabetes mellitus, type 2) E11.9
--- OUTSIDE RECORDS SUMMARY | 2024-08-13 12:19 | XMS_ITS | Encounter Summary ---
Author Organization [employer] Address [address] [facility] 7t [place] [address] Care Team Providers Care Cannon Crewmember Name Role Phone Dallas Menard MD Primary Care Provide r Reason for Visit * Reason Onset Date Comments Nurse Triage 04/21/2024 Encounter Details Date Type Department Care Team ([facility] st Contact Info) Description 04/21/2024 Telephone [facility] MED[facility]INE [address] [place], [place] [phone] Dallas Menard MD [address] [place] [address] Nurse Triage Social History Tobacco Use Types [...] 04/21/2024 10:05 AM EST Triage call with [facility] [place] [id number] [place]. Pt TEOFILO Diaz takes call for Pt. Pt was seen in [facility] 04/18/24 due to fall and discovered UTI. [...] booking. Pt is advised to come to [facility] if pain isnot effected by tylenol. Protocol [...] ED visit on : Date: 04/18/24 Hospital: [facility] ED Seen for: Fell Symptomatic Yes Pt was seen due to falling . Er did lab work and seen she had a UTI so supplied pt with antibiotics. But did not supply patient with pain meds. Pt reporting left side pain from shoulder radiating towards left side back . documented in this encounter Plan of Treatment Upcoming Encounters Date Type Department Care Team (Late st Contact Info) Description 08/26/2024 9:30 AM EDT Office Visit [facility] [address] [place] [address] Dallas Menard MD [address] [place] [address] 11/06/2024 10:15 AM EDT Office Visit [facility] [address] [place] [address] Dallas Menard MD [address] [place] [address] documented as of this encounter Visit Diagnoses Not on filedocumented in this encounter Additional Health Concerns Assessment Noted Time PHQ-9 Depression Total Score: 14 024 3:35 PM EDT documented as of this encounter Care Teams Cannon Crewmember Relationship Specialty Start Date End Date Dallas Menard MD [address] [place] [address] PCP - General Internal Medicine 08/11/15 documented as of this encounter
--- OUTSIDE RECORDS SUMMARY | 2024-08-13 12:19 | XMS_ITS | Encounter Summary ---
Author Organization [employer] Address [address] [facility] 7t [place] [address] Care Team Providers Care Lead Person Name Role Phone Dallas Menard MD Primary Care Provide r Reason for Visit * Reason Onset Date Comments Verbal Order 08/12/2024 Encounter Details Date Type Department Care Team ([facility] st Contact Info) Description 08/12/2024 Telephone [facility] [address] [place], [place] [phone] Dallas Menard MD [address] [place] [address] Verbal Order Social History Tobacco Use Types Packs/Day Years Used Date Smoking Tobacco: Never Passive Smoke Exposure: Never Smokeless Tobacco: Never Alcohol Use Standard Drinks/Week Comments Not Currently 0 (1 standard drink = 0.6 oz pur e alcohol) Depression Answer Date Recorded Patient Health Questionnaire-9 Score 13 07/31/2024 Patient Health Questionnaire-9 Score 13 07/31/2024 Last PHQ-9: Questionnaire Data Not on file 0 07/31/2024 Housing Stability Answer Date Recorded What is [...] Date Recorded Patient Health Questionnaire-2 Score 2 07/31/2024 Internet Access Answer Date Recorded Internet Access [...] encounter Miscellaneous Notes * Telephone Encounter - Rhonda Jones RN - 08/13/2024 9:59 AM EDT Tc to Juju, provided verbal order to start pt on Home Nursing, Physical Therapy Occupational therapy to Start tomorrow on 08/13/24. Juju expressed understanding and no further questions or concernsat this time. * Telephone Encounter - Thuan Heart - 08/12/2024 12:58 PM EDT Tc from juju with [facility] requesting Verbal Orders for Home Nursing, Physical TherapyOccupational therapy to Start tomorrow on 08/13/24. Contact Juju at [phone] documented in this encounter Plan of Treatment Upcoming Encounters Date Type Department Care Team (Late st Contact Info) Description 08/26/2024 9:30 AM EDT Office Visit [facility] [address] [place], [place] [phone] Dallas Menard MD [address] [place], [place] [phone] 11/06/2024 10:15 AM EDT Office Visit [facility] [address] [place], [place] [phone] Dallas Menard MD [address] [place] [address] documented as of this encounter Visit Diagnoses Not on filedocumented in this encounter Additional Health Concerns Assessment Noted Time PHQ-9 Depression Total Score: 13 025 8:43 AM EDT documented as of this encounter Care Teams Lead Person Relationship Specialty Start Date End Date Dallas Menard MD [address] [place], [place] [phone] PCP - General Internal Medicine 08/11/15 documented as of this encounter
--- OUTSIDE RECORDS SUMMARY | 2024-08-13 12:19 | XMS_ITS | Encounter Summary ---
Author Organization [employer] Address 75 [facility] 7t [place] [address] Care Team Providers Care Superintendent Oil Well Services Name Role Phone Dallas Menard MD Primary Care Provide r Reason for Visit * Reason Onset Date Comments Appointment Request 07/10/2024 Encounter Details Date Type Department Care Team ([facility] st Contact Info) Description 07/10/2024 Telephone [facility] [address] [place], [place] [phone] Dallas Menard MD [address] [place] [address] Appointment Request Social History Tobacco Use Types [...] EST Tc from pt requesting appointment , magazine writer advised theres no soon appointments available as if any symptoms magazine writer could assist with triage nurse as pt denied. documented in this encounter Plan of Treatment Upcoming Encounters Date Type Department Care Team (Late st Contact Info) Description 08/26/2024 9:30 AM EDT Office Visit [facility] [address] [place] [address] Dallas Menard MD [address] [place] [address] 11/06/2024 10:15 AM EDT Office Visit [facility] [address] [place] [address] Dallas Menard MD [address] [place] [address] documented as of this encounter Visit Diagnoses Not on filedocumented in this encounter Additional Health Concerns Assessment Noted Time PHQ-9 Depression Total Score: 14 024 3:35 PM EDT documented as of this encounter Care Teams Superintendent Oil Well Services Relationship Specialty Start Date End Date Dallas Menard MD [address] [place] [address] PCP - General Internal Medicine 08/11/15 documented as of this encounter
--- OUTSIDE RECORDS SUMMARY | 2024-08-13 12:19 | XMS_ITS | Encounter Summary ---
Author Organization [facility] Address 75 [facility] 7t [place] [address] Care Team Providers Care Siebel Administrator Name Role Phone Dallas Menard MD Primary Care Provide r Reason for Visit * Reason Comments Med Refill Encounter Details Date Type Department Care Team (Late st Contact Info) Description 07/20/2022 Refill [facility] [address] [place], [place] [phone] Alyce Murphy ANP [address] [place], [place] [phone] Social History Tobacco Use Types Packs/Day Years [...] as of this encounter Plan of Treatment Upcoming Encounters Date Type Department Care Team (Late st Contact Info) Description 08/26/2024 9:30 AM EDT Office Visit [facility] [address] [place], [place] [phone] Dallas Menard MD [address] [place], [place] [phone] 11/06/2024 10:15 AM EDT Office Visit [facility] [address] [place] [address] Dallas Menard MD [address] [place] [address] documented as of this encounter Visit Diagnoses Not on filedocumented in this encounter Additional Health Concerns Assessment Noted Time PHQ-9 Depression Total Score: 5 05/30/19 23 11:51 AM EST documented as of this encounter Care Teams Siebel Administrator Relationship Specialty Start Date End Date Dallas Menard MD 230 [place] [address] PCP - General Internal Medicine 08/11/15 documented as of this encounter
--- OUTSIDE RECORDS SUMMARY | 2024-08-13 12:19 | XMS_ITS | Encounter Summary ---
Author Organization [employer] Address [address] [facility] [address] 7t [place] [address] Care Team Providers Care Motor Mechanic Name Role Phone Dallas Menard MD Primary Care Provide r Encounter Details Date Type Department Care Team ([facility] st Contact Info) Description 06/19/2024 Refill [facility] 230 [place], [place] [phone] Dallas Menard MD 230 [place], [place] [phone] Hypertension associated with diabetes (CMS/HCC) (CMS/HCC) Social [...] Description 08/26/2024 9:30 AM EDT Office Visit [facility] [address] [place] [address] Dallas Menard MD 230 [place] [address] 11/06/2024 10:15 AM EDT Office Visit [facility] [address] [place] [address] Dallas Menard MD 230 [place] [address] documented as of this encounter Visit Diagnoses Diagnosis Hypertension associated with diabetes (CMS/[facility]) Unspecified essential hypertension documented in this encounter Additional Health Concerns Assessment Noted Time PHQ-9 Depression Total Score: 14 024 3:35 PM EDT documented as of this encounter Care Teams Motor Mechanic Relationship Specialty Start Date End Date Dallas Menard MD 230 [place] [address] PCP - General Internal Medicine 08/11/15 documented as of this encounter
--- OUTSIDE RECORDS SUMMARY | 2024-08-13 12:19 | XMS_ITS | Encounter Summary ---
Author Organization [employer] Address 75 [facility] 7t [place] [address] Care Team Providers Care Grab Jack Man Name Role Phone Dallas Menard MD Primary Care Provide r Encounter Details Date Type Department Care Team (Late st Contact Info) Description 08/14/2022 Orders Only [facility] MED [facility] PEDS [address] [place], [place] [phone] Jennifer Lopez LPN Social History Tobacco Use [...] Encounters Date Type Department Care Team (Late Contact Info) Description 08/26/2024 9:30 AM EDT Office Visit [facility] [address] [place] [address] [phone] Dallas Menard MD 230 [place] [address] 11/06/2024 10:15 AM EDT Office Visit [facility] [address] [place] [address] Dallas Menard MD [address] [place] [address] documented as of this encounter Visit Diagnoses Not on filedocumented in this encounter Additional Health Concerns Assessment Noted Time PHQ-9 Depression Total Score: 5 05/30/19 23 11:51 AM EST documented as of this encounter Care Teams Grab Jack Man Relationship Specialty Start Date End Date Dallas Menard MD [address] [place] [address] PCP - General Internal Medicine 08/11/15 documented as of this encounter
--- OUTSIDE RECORDS SUMMARY | 2024-08-13 12:19 | XMS_ITS | Encounter Summary ---
Author Organization [employer] Address 75 [facility] 7t [place] [address] Care Team Providers Care Ice Guard Inspector Name Role Phone Dallas Menard MD Primary Care Provide r Encounter Details Date Type Department Care Team (Late Contact Info) Description 10/03/2022 Orders Only [facility] & PEDS [address] [place], [place] [phone] Jeninfer Lopez LPN Social History Tobacco Use Types [...] Description 08/26/2024 9:30 AM EDT Office Visit [facility]INE [address] [place] [address] [phone] Dallas Menard MD 230 [place] [address] 11/06/2024 10:15 AM EDT Office Visit [facility] [address] [place] [address] Dallas Menard MD [address] [place] [address] documented as of this encounter Visit Diagnoses Not on filedocumented in this encounter Additional Health Concerns Assessment Noted Time PHQ-9 Depression Total Score: 5 05/30/19 23 11:51 AM EST documented as of this encounter Care Teams Ice Guard Inspector Relationship Specialty Start Date End Date Dallas eMnard MD 230 [place] [address] PCP - General Internal Medicine 08/11/15 documented as of this encounter
--- OUTSIDE RECORDS SUMMARY | 2024-08-13 12:19 | XMS_ITS | Encounter Summary ---
Author Organization [employer] Address 75 [facility] 7t [place] [address] Care Team Providers Care Crm Developer Name Role Phone Dallas Menard MD Primary Care Provide r Encounter Details Date Type Department Care Team (Late Contact Info) Description 10/16/2022 Orders Only [facility]INE [address] [place] [phone] Christie Strauss LPN Social History Tobacco Use [...] Description 08/26/2024 9:30 AM EDT Office Visit [facility] [address] [place] [phone] Dallas Menard MD [address] [place] [address] 11/06/2024 10:15 AM EDT Office Visit [facility] [address] [place] [address] Dallas Menard MD 230 [place] [address] documented as of this encounter Visit Diagnoses Not on filedocumented in this encounter Additional Health Concerns Assessment Noted Time PHQ-9 Depression Total Score: 5 05/30/19 23 11:51 AM EST documented as of this encounter Care Teams Crm Developer Relationship Specialty Start Date End Date Dallas Menard MD 230 [place] [address] PCP - General Internal Medicine 08/11/15 documented as of this encounter
--- OUTSIDE RECORDS SUMMARY | 2024-08-13 12:19 | XMS_ITS | Encounter Summary ---
Author Organization [employer] Address [address] [facility] [address] 7t [place] [address] Care Team Providers Care Senior Center Manager Name Role Phone Dallas Menard MD Primary Care Provide r Encounter Details Date Type Department Care Team ([facility] st Contact Info) Description 06/23/2024 Telephone [facility] 230 [place], [place] [phone] Dallas Menard MD [address] [place], [place] [phone] Social History Tobacco Use Types Packs/Day Years [...] 9:30 AM EDT Office Visit [facility] [address] [place] [address] Dallas Menard MD 230 [place] [address] 11/06/2024 10:15 AM EDT Office Visit [facility] [address] [place] [address] Dallas Menard MD 230 [place] [address] documented as of this encounter Visit Diagnoses Not on filedocumented in this encounter Additional Health Concerns Assessment Noted Time PHQ-9 Depression Total Score: 14 024 3:35 PM EDT documented as of this encounter Care Teams Senior Center Manager Relationship Specialty Start Date End Date Dallas Menard MD [address] [place] [address] PCP - General Internal Medicine 08/11/15 documented as of this encounter
--- OUTSIDE RECORDS SUMMARY | 2024-08-13 12:19 | XMS_ITS | Encounter Summary ---
Author Organization [employer] Address [address] [facility] [address] 7t [place] [address] Care Team Providers Care Ward Nurse Name Role Phone Dallas Menard MD Primary Care Provide r Encounter Details Date Type Department Care Team ([facility] st Contact Info) Description 06/23/2024 Refill [facility] 230 [place], [place] [phone] Dallas Menard MD [address] [place], [place] [phone] Hypertension associated with diabetes (CMS/HCC) (CMS/HCC) Social [...] Description 08/26/2024 9:30 AM EDT Office Visit [facility] [address] [place] [address] Dallas Menard MD 230 [place] [address] 11/06/2024 10:15 AM EDT Office Visit [facility] [address] [place] [address] Dallas Menard MD [address] [place] [address] documented as of this encounter Visit Diagnoses Diagnosis Hypertension associated with diabetes (CMS/[facility]) Unspecified essential hypertension documented in this encounter Additional Health Concerns Assessment Noted Time PHQ-9 Depression Total Score: 14 024 3:35 PM EDT documented as of this encounter Care Teams Ward Nurse Relationship Specialty Start Date End Date Dallas Menard MD [address] [place] [address] PCP - General Internal Medicine 08/11/15 documented as of this encounter
--- OUTSIDE RECORDS SUMMARY | 2024-08-13 12:19 | XMS_ITS | Encounter Summary ---
Author Organization [employer] Address 75 [facility] 7t [place] [address] Care Team Providers Care On Site Soil Evaluator Name Role Phone Dallas Menard MD Primary Care Provide r Encounter Details Date Type Department Care Team (Late st Contact Info) Description 07/11/2022 Orders Only [facility] MED & PEDS [address] [place], [place] [phone] Jennifer Lopez LPN Social History Tobacco Use [...] Description 08/26/2024 9:30 AM EDT Office Visit [facility]INE [address] [place] [address] [phone] Dallas Menard MD 230 [place] [address] 11/06/2024 10:15 AM EDT Office Visit [facility] [address] [place] [address] Dallas Menard MD 230 [place] [address] documented as of this encounter Visit Diagnoses Not on filedocumented in this encounter Additional Health Concerns Assessment Noted Time PHQ-9 Depression Total Score: 5 05/30/19 23 11:51 AM EST documented as of this encounter Care Teams On Site Soil Evaluator Relationship Specialty Start Date End Date Dallas Menard MD 230 [place] [address] PCP - General Internal Medicine 08/11/15 documented as of this encounter
--- OUTSIDE RECORDS SUMMARY | 2024-08-13 12:20 | XMS_ITS | Encounter Summary ---
Author Organization [employer] Address 75 [facility] 7t [place] [address] Care Team Providers Care Feed Mill Tender Name Role Phone Dallas Menard MD Primary Care Provide r Reason for Visit * Reason Onset Date Comments Appointment Request 07/31/2022 Encounter Details Date Type Department Care Team ([facility] st Contact Info) Description 07/31/2022 Telephone [facility] 230 [place], [place] [phone] Dallas Menard MD 230 [place], [place] [phone] Appointment Request Social History Tobacco Use Types [...] appt was wanted. Please contact pt at [phone] documented in this encounter Plan of Treatment Upcoming Encounters Date Type Department Care Team (Late st Contact Info) Description 08/26/2024 9:30 AM EDT Office Visit [facility] [address] [place] [address] Dallas [facility] MD [facility] [place] [phone] 11/06/2024 10:15 AM EDT Office Visit [facility] [address] [place] [address] Dallas Menard MD [address] [place] [phone] documented as of this encounter Visit Diagnoses Not on filedocumented in this encounter Additional Health Concerns Assessment Noted Time PHQ-9 Depression Total Score: 5 05/30/19 23 11:51 AM EST documented as of this encounter Care Teams Feed Mill Tender Relationship Specialty Start Date End [place] [address] PCP - General Internal Medicine 08/11/15 documented as of this encounter
--- OUTSIDE RECORDS SUMMARY | 2024-08-13 12:20 | XMS_ITS | Encounter Summary ---
Author Organization [employer] Address 75 [facility] 7t [place] [address] Care Team Providers Care Electrical Assemblies Supervisor Name Role Phone Dallas Menard MD Primary Care Provide r Encounter Details Date Type Department Care Team (Late Contact Info) Description 07/20/2022 Orders Only [facility] [address] [place] [phone] Christie Strauss LPN Social History Tobacco Use [...] AM EDT Office Visit [facility] [address] [place] [address] Dallas Menard MD 230 [place] [address] 11/06/2024 10:15 AM EDT Office Visit [facility] [address] [place] [address] Dallas Menard MD 230 [place] [address] documented as of this encounter Visit Diagnoses Not on filedocumented in this encounter Additional Health Concerns Assessment Noted Time PHQ-9 Depression Total Score: 5 05/30/19 23 11:51 AM EST documented as of this encounter Care Teams Electrical Assemblies Supervisor Relationship Specialty Start Date End Date Dallas Menard MD 230 [place] [address] PCP - General Internal Medicine 08/11/15 documented as of this encounter
--- OUTSIDE RECORDS SUMMARY | 2024-08-13 12:20 | XMS_ITS | Encounter Summary ---
Author Organization [employer] Address 75 [facility] 7t [place] [address] Care Team Providers Care Beauty Culture Teacher Name Role Phone Dallas Menard MD Primary Care Provide r Encounter Details Date Type Department Care Team (Late st Contact Info) Description 05/22/2022 Orders Only [facility] MED & PEDS [address] [place], [place] [phone] Jennifer Lopez LPN Social History Tobacco Use [...] Description 08/26/2024 9:30 AM EDT Office Visit [facility] [address] [place] [address] Dallas Menard MD [address] [place] [address] 11/06/2024 10:15 AM EDT Office Visit [facility] [address] [place] [address] Dallas Menard MD [address] [place] [address] [phone] documented as of this encounter Visit Diagnoses Not on filedocumented in this encounter Care Teams Beauty Culture Teacher Relationship Specialty Start Date End Date Dallas Menard MD [address] [place] [address] PCP - General Internal Medicine 08/11/15 documented as of this encounter
--- OUTSIDE RECORDS SUMMARY | 2024-08-13 12:20 | XMS_ITS | Encounter Summary ---
Author Organization [employer] Address 75 [facility] 7t [place] [address] Care Team Providers Care Chipping Machine Operator Name Role Phone Dallas Menard MD Primary Care Provide r Reason for Visit * Reason Comments Care Coordination CM/CHW outreach Encounter Details Date Type Department Care Team (Latest Contact Info) Description 08/11/2024 Patient Outreach [facility] [address] [place] [address] Dallas Menard MD 230 [place] [address] Care Coordination (CM/CHW outreach) Social History Tobacco Use Types Packs/Day Years [...] AM EDT documented as of this encounter Progress Notes * Jeanne Perez - 08/11/2024 2:24 PM EDT CHW Jeanne Perez, placed outbound call to patient in regards to offer Adult Complex Care Program and SDOH services. No answer at this time. CHW LVM introducing herself from [facility] with CHW's name, department and direct contact number requesting call back. Will re-attempt to contact within 5 days. and address not confirmed. documented in this encounter Plan of Treatment Upcoming Encounters Date Type Department Care Team (Late st Contact Info) Description 08/26/2024 9:30 AM EDT Office Visit [facility]INE [address] [place] [address] Dallas Menard MD 230 [place] [address] 11/06/2024 10:15 AM EDT Office Visit [facility] [address] [place] [address] Dallas Menard MD 230 [place] [address] documented as of this encounter Visit Diagnoses Not on filedocumented in this encounter Additional Health Concerns Assessment Noted Time PHQ-9 Depression Total Score: 13 025 8:43 AM EDT documented as of this encounter Care Teams Chipping Machine Operator Relationship Specialty Start Date End Date Dallas Menard MD 230 [facility] [place] [address] PCP - General Internal Medicine 08/11/15 documented as of this encounter
--- OUTSIDE RECORDS SUMMARY | 2024-08-13 12:20 | XMS_ITS | Encounter Summary ---
Author Organization [employer] Address 75 [facility] 7t [place] [address] Care Team Providers Care Barrel Bridge Assembler Name Role Phone Dallas Menard MD Primary Care Provide r Reason for Visit * Reason Comments Med Refill Encounter Details Date Type Department Care Team ([facility] st Contact Info) Description 05/09/2024 Refill [facility]INE 230 [place], [place] [phone] Dallas Menard MD 230 [place], [place] [phone] Chronic abdominal pain Social History Tobacco Use [...] Description 08/26/2024 9:30 AM EDT Office Visit [facility] MEDICINE [address] [place] [address] Dallas Menard MD [address] [place] [address] 11/06/2024 10:15 AM EDT Office Visit [facility] MEDICINE [address] [place] [address] Dallas Menard MD [address] [place] [address] documented as of this encounter Visit Diagnoses Diagnosis Chronic abdominal pain Abdominal pain, unspecified site documented in this encounter Additional Health Concerns Assessment Noted Time PHQ-9 Depression Total Score: 14 024 3:35 PM EDT documented as of this encounter Care Teams Barrel Bridge Assembler Relationship Specialty Start Date End Date Dallas Menard MD [address] [place] [address] PCP - General Internal Medicine 08/11/15 documented as of this encounter
--- OUTSIDE RECORDS SUMMARY | 2024-08-13 12:20 | XMS_ITS ---
Author Organization [employer] Address 75 [facility] 7t [place] [address] Care Team Providers Care Freight Agent Name Role Phone Dallas Menard MD Primary Care Provide r CM Complex Status:Outreach In Progress (Enrolling) Start date:08/11/2024 Enrollment reason:ADT Feed Overview ED- Pt went to [facility] ED on 08/08/24. Case Team Name Relationship Phone Cristy Alston RN Registered Nurse(Responsible S taff) Continued Care and Services Coordination
--- OUTSIDE RECORDS SUMMARY | 2024-08-13 12:20 | XMS_ITS | Encounter Summary ---
Author Organization [employer] Address [address] [facility] [address] 7t [place] [address] Care Team Providers Care Facilities Engineer Name Role Phone Dallas Menard MD Primary Care Provide r Reason for Visit * Reason Comments Med Refill Encounter Details Date Type Department Care Team ([facility] st Contact Info) Description 12/22/2023 Refill C [facility] [address] [place], [place] [phone] Dallas Menard MD [address] [place] [address] Chronic abdominal pain Social History Tobacco Use [...] Description 08/26/2024 9:30 AM EDT Office Visit [facility] [address] [place] [address] Dallas Menard MD [address] [place] [address] 11/06/2024 10:15 AM EDT Office Visit [facility] [address] [place] [address] Dallas Menard MD [address] [place] [address] documented as of this encounter Visit Diagnoses Diagnosis Chronic abdominal pain Abdominal pain, unspecified site documented in this encounter Additional Health Concerns Assessment Noted Time PHQ-9 Depression Total Score: 14 024 3:35 PM EDT documented as of this encounter Care Teams Facilities Engineer Relationship Specialty Start Date End Date Dallas Menard MD [address] [place] [address] PCP - General Internal Medicine 08/11/15 documented as of this encounter
--- OUTSIDE RECORDS SUMMARY | 2024-08-13 12:20 | XMS_ITS ---
Author Organization [employer] Address [address] [facility] 7t [place] [address] Care Team Providers Care Grain Farmer Name Role Phone Dallas Menard MD Primary Care Provide r CHW Complex Status:Outreach In Progress (Enrolling) Start date:08/11/2024 Enrollment reason:ADT Feed Overview ED- Pt went to [facility] on 08/08/24. Please outreach for enrollment. Case Team Name Relationship Phone Jeanne Perez (Responsible Staff) Continued Care and Services Coordination
--- OUTSIDE RECORDS SUMMARY | 2024-08-13 12:20 | XMS_ITS | Encounter Summary ---
Author Organization [employer] Address 75 [facility] 7t [place] [address] Care Team Providers Care Installation & Maintenance Executive Name Role Phone Dallas Menard MD Primary Care Provide r Reason for Visit * Reason Comments Transition Of Care (Tcm) HDF scheduled Encounter Details Date Type Department Care Team ([facility] st Contact Info) Description 08/11/2024 Patient Outreach [facility] 230 [place] [address] Dallas Menard MD [address] [place], [place] [phone] Transition Of Care (Tcm) (HDF scheduled) Social History Tobacco Use Types Packs/Day Years [...] encounter Miscellaneous Notes * Significant Event - Alvina Angel - 08/11/2024 11:56 AM EDT 08/11/24 1154 Hospital Discharges and Admission for [facility] Type of Visit Hospital Admission Date of Admission/Visit 08/08/24 Date of Discharge 08/11/24 Facility [facility] Diagnosis Dizziness/ cardiac abnormality Disposition Discharged Home Follow-Up Actions Follow-Up Needed Provider appointment Follow-Up Outcome Spoke to Caregiver Initial Contact Date 08/11/24 SAM Tinsley placed outbound call to patient for HDF outreach. Patient's name and were confirmed by vandana Diaz. Patient educated on the importance of follow up with provider following inpatient admission. Patient offered an HDF appt. Patient is agreeable to an appointment and has been scheduled for 08/26/2024 at 9:30 am with [email or web address] Insurance verified prior to scheduling. Patient advised [...] Wednesdays, and Walk-In Urgent Care Located in [facility]. Patient provided with after-hours line for [facility], , which offer night time triage service and option to transfer to international sales representative provider if needed. CC will request Discharge summary to bescanned into chart. documented in this encounter Plan of Treatment Upcoming Encounters Date Type Department Care Team (Late st Contact Info) Description 08/26/2024 9:30 AM EDT Office Visit [facility] 230 [facility], [place] [phone] Dallas Menard MD 230 [place], [place] [phone] 11/06/2024 10:15 AM EDT Office Visit [facility] [address] [facility] [place] [address] Dallas Menard MD 230 [place], [place] [phone] documented as of this encounter Visit Diagnoses Not on filedocumented in this encounter Additional Health Concerns Assessment Noted Time PHQ-9 Depression Total Score: 13 07/31/ 025 8:43 AM EDT documented as of this encounter Care Teams Installation & Maintenance Executive Relationship Specialty Start Date End Date [place] [address] PCP - General Internal Medicine 08/11/15 documented as of this encounter
--- OUTSIDE RECORDS SUMMARY | 2024-08-13 12:20 | XMS_ITS | Encounter Summary ---
Author Organization [employer] Address 75 [facility] 7t [place] [address] Care Team Providers Care Labor Employment Associate Name Role Phone Dallas Menard MD Primary Care Provide r Reason for Visit * Reason Onset Date Comments Med Refill 12/27/2023 Encounter Details Date Type Department Care Team ([facility] st Contact Info) Description 12/27/2023 Telephone [facility]INE 230 [place], [place] [phone] Dallas Menard MD 230 [place], [place] [phone] Med Refill Social History Tobacco Use Types [...] to PCP. * Telephone Encounter - Christina Garnt - 12/27/2023 9:14 AM EDT TC from pt requesting medication refill. Medications needing refill : gabapentin (Neurontin) 100 MG capsule To be sent to: [facility] - [place], [place] - [address] [place] [address] documented in this encounter Plan of Treatment Upcoming Encounters Date Type Department Care Team (Late st Contact Info) Description 08/26/2024 9:30 AM EDT Office Visit [facility] [address] [place] [address] Dallas Menard MD 230 [place] [address] 11/06/2024 10:15 AM EDT Office Visit [facility] [address] [place] [address] Dallas Menard MD [address] [place] [address] documented as of this encounter Visit Diagnoses Not on filedocumented in this encounter Additional Health Concerns Assessment Noted Time PHQ-9 Depression Total Score: 14 024 3:35 PM EDT documented as of this encounter Care Teams Labor Employment Associate Relationship Specialty Start Date End Date Dallas Menard MD [address] [place] [address] [place] [address] PCP - General Internal Medicine 08/11/15 documented as of this encounter
--- OUTSIDE RECORDS SUMMARY | 2024-08-13 12:20 | XMS_ITS | Encounter Summary ---
Author Organization [employer] Address [address] [facility] [address] 7t [place] [address] Care Team Providers Care Traffic Sign Erection Supervisor Name Role Phone Dallas Menard MD Primary Care Provide r Encounter Details Date Type Department Care Team ([facility] st Contact Info) Description 08/11/2024 Patient Outreach [facility] 230 [place], [place] [phone] Dallas Menard MD 230 [place], [place] [phone] Social History Tobacco Use Types Packs/Day Years [...] Description 08/26/2024 9:30 AM EDT Office Visit [facility] [address] [place] [phone] Dallas Menard MD [address] [place] [address] 11/06/2024 10:15 AM EDT Office Visit [facility] [address] [place] [address] Dallas Menard MD [address] [place] [address] documented as of this encounter Visit Diagnoses Not on filedocumented in this encounter Additional Health Concerns Assessment Noted Time PHQ-9 Depression Total Score: 13 025 8:43 AM EDT documented as of this encounter Care Teams Traffic Sign Erection Supervisor Relationship Specialty Start Date End Date Dallas Menard MD 230 [place] [address] PCP - General Internal Medicine 08/11/15 documented as of this encounter
--- OUTSIDE RECORDS SUMMARY | 2024-08-13 12:20 | XMS_ITS | Encounter Summary ---
Author Organization [employer] Address 75 [facility] 7t [place] [address] Care Team Providers Care Animal Biologist Name Role Phone Dallas Menard MD Primary Care Provide r Encounter Details Date Type Department Care Team (Late st Contact Info) Description 06/19/2022 Orders Only [facility] P[facility]S [address] [place], [place] [phone] Jennifer Lopez LPN Social History Tobacco Use [...] Description 08/26/2024 9:30 AM EDT Office Visit [facility] MED[facility]INE 230 [place], [place] [phone] Dallas Menard MD [address] [place], [place] [phone] 11/06/2024 10:15 AM EDT Office Visit [facility] MED[facility]INE 230 [place], [place] [phone] Dallas Menard MD [address] [place] [address] documented as of this encounter Visit Diagnoses Not on filedocumented in this encounter Additional Health Concerns Assessment Noted Time PHQ-9 Depression Total Score: 5 05/30/19 23 11:51 AM EST documented as of this encounter Care Teams Animal Biologist Relationship Specialty Start Date End Date Dallas Menard MD [address] [place], [place] [phone] PCP - General Internal Medicine 08/11/15 documented as of this encounter
--- OUTSIDE RECORDS SUMMARY | 2024-08-13 12:20 | XMS_ITS | Encounter Summary ---
Author Organization [employer] Address 75 [facility] 7t [place] [address] Care Team Providers Care Corporate Lawyer Name Role Phone Dallas Menard MD Primary Care Provide r Reason for Visit * Reason Comments Care Coordination C3CM- chart review Encounter Details Date Type Department Care Team (Latest Contact Info) Description 08/11/2024 Patient Outreach [facility]INE 230 [place] [address] Dallas Menard MD 230 [place] [address] Care Coordination (C3CM- chart review) Social History Tobacco Use Types Packs/Day Years [...] as of this encounter Progress Notes * Cristy Alston RN - 08/11/2024 9:39 AM EDT HARRIETT Alston RN, performed chart review, in anticipation of initial assessment with patient, as patient has stratified for C3 Adult Complex Care through the ADT feed. History significant for bilateral cataracts, cardiomyopathy, chronic abdominal pain, coronary artery disease, Type 2 DM, HTN, microscopic hematuria. Mild intermittent asthma with acute exacerbation, depression, visual impairment, frequent falls, postmenopausal bleeding, retinal vein occlusion of left eye. Low back pain radiating to the left leg, left hip pain, frail elderly, dysuria, urge incontinence of urine, primary osteoarthritis of left knee, displaced fracture of greater tuberosity of right humerus with routine healing, and subacute cough. Specialists include Psych/ BH, C Ortho, Endo, Pharmacy CDTM, Urology, Neurology, Podiatry, GI, and Ophthalmology. ED visits within the last 12 months include [facility] 08/08/24 and [facility] 07/12/24-07/15/24. Patient admitted to [facility] on 08/08/24 for eval following presyncopal episode. Last appointment in PCP office on 07/29/24. Next appointment scheduled for 08/28/24 at 9:30am for Televisit with BH and f/u with PCP on 11/06/24 at 10:15am. documented in this encounter Plan of Treatment Upcoming Encounters Date Type Department Care Team (Late st Contact Info) Description 08/26/2024 9:30 AM EDT Office Visit [facility] [address] [facility] [place] [address] Dallas Menard MD [address] [facility] [place] [address] 11/06/2024 10:15 AM EDT Office Visit [facility] [address] [facility] [place] [address] Dallas Menard MD [address] [facility] [place] [address] documented as of this encounter Visit Diagnoses Not on filedocumented in this encounter Additional Health Concerns Assessment Noted Time PHQ-9 Depression Total Score: 13 025 8:43 AM EDT documented as of this encounter Care Teams Corporate Lawyer Relationship Specialty Start Date End Date Dallas Menard MD [address] [facility] [place] [address] PCP - General Internal Medicine 08/11/15 documented as of this encounter
--- OUTSIDE RECORDS SUMMARY | 2024-08-13 12:20 | XMS_ITS | Encounter Summary ---
Author Organization [employer] Address 75 [facility] 7t [place] [address] Care Team Providers Care Photovoltaic Technician Name Role Phone Dallas Menard MD Primary Care Provide r Reason for Visit * Reason Onset Date Comments Hospital Follow-up 08/11/2024 Encounter Details Date Type Department Care Team ([facility] st Contact Info) Description 08/11/2024 Telephone [facility] 230 [place] [address] Dallas Menard MD [address] [place], [place] [phone] Hospital Follow-up Social History Tobacco Use Types Packs/Day Years [...] encounter Miscellaneous Notes * Telephone Encounter - Thuan Heart - 08/11/2024 11:41 AM EDT Tc from pt requesting a HDF appt. Hospital: [facility] Date of admission: 08/08/24 Discharge date: 08/11/24 Diagnosed: Dizziness and Abnormality in the Ecocardiogram. *Send message to [place] Clinical Care Coordinators Contact pt at [phone] documented in this encounter Plan of Treatment Upcoming Encounters Date Type Department Care Team ([facility] st Contact Info) Description 08/26/2024 9:30 AM EDT Office Visit [facility] [address] [place] [address] Dallas Menard MD [address] [place] [address] 11/06/2024 10:15 AM EDT Office Visit [facility] [address] [place] [address] Dallas Menard MD [address] [place] [address] documented as of this encounter Visit Diagnoses Not on filedocumented in this encounter Additional Health Concerns Assessment Noted Time PHQ-9 Depression Total Score: 13 07/31/ 025 8:43 AM EDT documented as of this encounter Care Teams Photovoltaic Technician Relationship Specialty Start Date End Date Dallas Menard MD [address] [place] [address] PCP - General Internal Medicine 08/11/15 documented as of this encounter
--- OUTSIDE RECORDS SUMMARY | 2024-08-13 12:20 | XMS_ITS | Encounter Summary ---
Author Organization [employer] Address 75 [facility] 7t [place] [address] Care Team Providers Care Salvage Winder And Inspector Name Role Phone Dallas Menard MD Primary Care Provide r Reason for Visit * Reason Comments Med Refill Encounter Details Date Type Department Care Team ([facility] st Contact Info) Description 08/10/2023 Refill [facility] 230 [place], [place] [phone] Dallas eMnard MD 230 [place], [place] [phone] Chronic abdominal pain Social History Tobacco Use [...] 9:30 AM EDT Office Visit [facility] MEDICINE [address] [place] [address] Dallas Menard MD 230 [place] [address] 11/06/2024 10:15 AM EDT Office Visit [facility] MED[facility]INE [address] [place] [address] Dallas Menard MD [address] [place] [address] documented as of this encounter Visit Diagnoses Diagnosis Chronic abdominal pain Abdominal pain, unspecified site documented in this encounter Additional Health Concerns Assessment Noted Time PHQ-9 Depression Total Score: 23 024 9:40 AM EST documented as of this encounter Care Teams Salvage Winder And Inspector Relationship Specialty Start Date End Date Dallas Menard MD [address] [place] [address] PCP - General Internal Medicine 08/11/15 documented as of this encounter
--- OUTSIDE RECORDS SUMMARY | 2024-08-13 12:20 | XMS_ITS | Encounter Summary ---
Author Organization [employer] Address 75 [facility] 7t [place] [address] Care Team Providers Care Ornamenter Name Role Phone Dallas Menard MD Primary Care Provide r Reason for Visit * Reason Comments Care Coordination CHW Chart Review Encounter Details Date Type Department Care Team (Latest Contact Info) Description 08/11/2024 Patient Outreach [facility]INE 230 [place], [place] [phone] Dallas Menard MD 230 [place], [place] [phone] Care Coordination (CHW Chart Review) Social History Tobacco Use Types Packs/Day Years [...] Progress Notes * Jeanne Perez - 08/11/2024 1:35 PM EDT CM/C3 ANSHU Perez Chart Review ANSHU Perez reviewed chart review completed by HARRIETT Alston RN, performed chart review, in [...] displaced fracture of greater tuberosity of right humeruswith routine healing, and subacute cough. Specialists include Psych/ BH, C Ortho, Endo, Pharmacy CDTM, Urology, Neurology, Podiatry, GI, and Ophthalmology. ED visits within the last 12 months [place] [facility] [place]24 and [facility] 07/12/24-07/15/24. Patient admitted [place] [facility] [place] 08[place]24 for eval following presyn copal episode. Last appointment in PCP office on 07/29/24. Next appointment scheduled for 08/28/24 at9:30am for Televisit with and f/u with PCP on 11/06/24 at 10:15am. documented in this encounter Plan of Treatment Upcoming Encounters Date Type Department Care Team (Late st Contact Info) Description 08/26/2024 9:30 AM EDT Office Visit [facility] 230 [place] [address] Dallas Menard MD 230 [place] [address] 11/06/2024 10:15 AM EDT Office Visit [facility] MED[facility] 230 [place] [address] Dallas [place] [address] documented as of this encounter Visit Diagnoses Not on filedocumented in this encounter Additional Health Concerns Assessment Noted Time PHQ-9 Depression Total Score: 13 025 8:43 AM EDT documented as of this encounter Care Teams Ornamenter Relationship Specialty Start Date End Date Dallas Menard MD [address] [place] [address] PCP - General Internal Medicine 08/11/15 documented as of this encounter
--- OUTSIDE RECORDS SUMMARY | 2024-08-13 12:20 | XMS_ITS | Clinical Summary ---
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 Procedure Note Vahid, Image - 03/01/[address] [address] [address] Scan Report Signed Patient: Jaun Rivers#: [id number] 241 : 1965Acct:[id number] Age/Sex: 58 / FADM Date: 07/11/24 Loc: HO.ED Attending Dr: Ordering Physician: Ricci Cardenas Date of Service: 07/11/24 Procedure(s): CT head/brain wo IV con Accession Number(s): [id number] cc: Dallas Butler MD; Ricci Cardenas Report Number: [id number]: Total DLP = 658.00 mGy-cm CLINICAL HISTORY: [...] Santos MD in OV> 07/12/2415 DD/ TD/TT: 07/12/24 001 Taximeter Repairer: us [facility] External Provider IMG CT PROCEDURES Final Result * XR Chest 1 View (07/11/2024 10:16 PM EST) Anatomical Region Laterality Modality Chest Radiographic Radha ging 07/11/2024 10:1 6 PM EST Narrative 07/11/2024 10:18 PM EST ? [facility] ?[address] ?[place] [address] ?XRay Report ? Signed ? Patient: Rivers,Wendy ?MR#: [id number] ?? 241 ? : 1965 ?Acct:[id number] ? Age/Sex: 58 / F ?ADM Date: 02/28/25 ? Loc: HO.ED ? Attending Dr: ? Ordering Physician: Generic ED Physician ?? Date of Service: 07/11/24 ?? Procedure(s): XR chest 1V ?? Accession Number(s): [id number] ? cc: Dallas Butler MD; Generic ED [...] signed by Hany White MD in OV> ?07/11/247 ? DD/ 15 ? TD/TT: 07/11/242215 ? Taximeter Repairer: ? Procedure Note Gena Redding - 07/11/[address] [address] XRay Report Signed Patient: Wendy RiversMR#: [id number] 241 : 1965Acct:[id number] Age/Sex: 58 / FADM Date: 07/11/24 Loc: .ED Attending Dr: Ordering Physician: Generic ED Physician Date of Service: 07/11/24 Procedure(s): XR chest 1V Accession Number(s): [id number] cc: Dallas Butler MD; Generic ED Physician [...] in OV> 07/11/242216 DD/ 15 TD/TT: 07/11/242215 Taximeter Repairer: us [facility] External Provider IMG XR PROCEDURES Final Result * (ABNORMAL) Lactic Acid (07/11/2024 9:45 PM EST) Lactic Acid 2.6(HH) 0.5 - 2.0 mmol/L [facility] Comment:Critical value for t est(s): LACTIC ACID Results called toand read back by: ANNE Person calling: [email or web address] Date:07/11/24 Time:2218 07/11/2024 9:45 PM EST 07/11/2024 9:49 PM EST Generic External Data Provider LAB BLOOD ORDERAB LES Final Result [facility] [address] [place] [phone] * (ABNORMAL) Urinalysis, Complete, with Reflex to Culture (07/11/2024 9:43 PM EST) Color Urine Yellow [facility] Appearance Urine Clear [facility] PH 5.5 5.0 - 9.0 [facility] Glucose Urine UA >=1000(A) Negative mg/dL [facility] Urine Blood Trace(A) Negative [facility] Specific [place] - Urine >=1.030(H) 1.005 - 1.025 [facility] Urine Protein 30 (1+)(A) Neg-Trace mg/dL [facility] Urine Ketones >=160 Negative mg/dL [facility] Nitrite Urine Negative Negative [facility] Leukocyte Esterase Urine Negative Negative [facility] RBC Urine 0-2 0 - 2 /HPF [facility] Urine WBC 0-5 0 - 5 /HPF [facility] Urine Squamous Epithelial Cell 0-2 0 - 2 /HPF [facility] Urine Bacteria None Seen None Seen [facility] Hyaline Casts, Urine 0-2 0 - 2 /LPF [facility] 07/11/2024 9:43 PM EST 07/11/2024 9:49 PM EST Narrative [facility] - 07/11/2024 9:59 PM EST Urine, Clean Catch Generic External Data Provider LAB URINE ORDERAB LES Final Result Performing Organization Address [facility] Co de Phone Number [facility] [address] [place] [phone] * (ABNORMAL) SARS-CoV-2 RNA, Influenza A/B, and RSV RNA, Ql NAAT (07/11/2024 9:43 PM EST) [facility] Influenza A PCR POSITIVE(A) Negative [facility] Influenza B PCR NEGATIVE Negative [facility] Resp Syncy Virus RNA Qual PCR NEGATIVE Negative [facility] SARS COV2 PCR NEGATIVE Negative [facility] Comment:All test results mus t be [...] use by authorized laboratories.Testing performed on the [employer] GeneXpert utilizingreal-time RT-PCR.All SARS CoV2 and positive influenza A/B results arereported to [facility]. 07/11/2024 9:43 PM EST 07/11/2024 9:49 PM EST us Generic External Data Provider LAB MICROBIOLOGY - GENERAL ORDERABLES Final Result Performing Organization Address [facility] Co de Phone Number [facility] [address] [place] [phone] * Drug Monitoring, Panel 1, Screen, Urine (07/11/2024 9:43 PM EST) Pathologist [facility] Opiate Screen Urine Not Detected Not Detect [facility] Comment:Opiate cut-off is 30 0 ng/mL.Positive results are unconfirmed and should not be used fornon-medical purposes. Barbiturates, Urine Not Detected Not Detect [facility] Comment:Barbiturate cut-off is 200 ng/mL.Positive results are unconfirmed and should not be used fornon-medical purposes. Phencyclidine Screen Urine Not Detected Not Detect [facility] Comment:Phencyclidine cut-of f is 25 ng/mL.Positive results are unconfirmed and should not be used fornon-medical purposes. Amphetamine Screen Urine Not Detected Not Detect [facility] Comment:Amphetamine cut-off is 1000 ng/mL.Positive results are unconfirmed and should not be used fornon-medical purposes. Benzodiazepines Screen Urine Not Detected Not Detect [facility] Comment:Benzodiazepine cut-o ff is 200 ng/mL.Positive results are unconfirmed and should not be used fornon-medical purposes. Cocaine Screen Urine Not Detected Not Detect [facility] Comment:Cocaine cut-off is 3 00 ng/mL.Positive results are unconfirmed and should not be used fornon-medical purposes. Cannabinoid Screen Urine Not Detected Not Detect [facility] Comment:Cannabinoid cut-off is 50 ng/mL.Positive results are unconfirmed and should not be used fornon-medical purposes. Methadone Screen, Urine Not Detected Not Detect ng/mL [facility] Comment:Methadone cut-off is 300 ng/mL.Positive results are unconfirmed and should not be used fornon-medical purposes. FENTANYL URINE Not Detected Not Detect [facility] Comment:Fentanyl cut-off is 1 ng/mL.Positive results are unconfirmed and should not be used fornon-medical purposes. Oxycodone Urine Screen Not Detected Not Detect ng/mL [facility] Comment:Oxycodone cut-off is 100 ng/mL.Positive results are unconfirmed and should not be used fornon-medical purposes. Buprenorphine Screen Not Detected Not Detect ng/mL [facility] Comment:Buprenorphine cut-of f is 5 ng/mL.Positive results are unconfirmed and should not be used fornon-medical purposes. 07/11/2024 9:43 PM EST 07/11/2024 9:49 PM EST us Generic External Data Provider LAB URINE ORDERAB LES Final Result [facility] [address] [place] [phone] * (ABNORMAL) CBC auto differential (07/11/2024 9:43 PM EST) White Blood Count 9.4 4.8 - 10.8 X10*3/uL [facility] Red Blood Count 5.53(H) 4.20 - 5.50 X10*6/uL [facility] Hemoglobin 15.1 12.0 - 16.0 g/dl [facility] Hematocrit 44.1 37.0 - 47.0 % [facility] Mean Corpuscular Volume 79.7(L) 80.0 - 98.0 fL [facility] Mean Corpuscular Hemoglobin 27.3 27.0 - 33.0 pg [facility] Mean Corpuscular HGB Conc 34.2 31.0 - 35.0 g/dl [facility] Red Cell Distribution Width 12.5 11.0 - 16.0 % [facility] Platelet Count 271 160 - 400 X10*3/uL [facility] Mean Platelet Volume 10.3 9.4 - 12.3 fL [facility] Neutrophils Percent Auto 89.5(H) 45 - 73 % [facility] Imm Gran Pct Auto 0.3 0.0 - 0.4 % [facility] Lymphocytes Percent Auto 4.9(L) 20 - 40 % [facility] Monocytes Percent Auto 3.9 2 - 11 % [facility] Eosinophils Percent Auto 1.0 0 - 4 % [facility] Basophils Percent Auto 0.4 0 - 2 % [facility] NRBC Pct Auto 0.0 0.0 - 0.2 /100WBC [facility] Neutrophils Absolute Auto 8.4(H) 2.0 - 8.3 x10*3/uL [facility] Imm Gran Abs Auto 0.03 0.00 - 0.03 X10*3/uL [facility] Lymphocytes Absolute Auto 0.5(L) 1.2 - 4.9 X10*3/uL [facility] Monocytes Absolute Auto 0.4 0.1 - 1.2 X10*3/uL [facility] Eosinophils Absolute Auto 0.1 0.0 - 0.4 X10*3/uL [facility] Basophils Absolute Auto 0.0 0.0 - 0.2 X10*3/uL [facility] NRBC Abs Auto 0.000 0.0 - 0.012 X10*3/uL [facility] 07/11/2024 9:43 PM EST 07/11/2024 9:49 PM EST us Generic External Data Provider LAB BLOOD ORDERAB LES Final Result [facility] [address] [place] [phone] * (ABNORMAL) Comprehensive Metabolic Panel (07/11/2024 9:43 PM EST) Sodium 130(L) 135 - 145 mmol/L [facility] Potassium 4.4 3.3 - 5.1 mmol/L [facility] Chloride 95(L) 96 - 108 mmol/L [facility] Carbon Dioxide 19(L) 22 - 29 mmol/L [facility] Anion Gap 20 12 - 20 [facility] Urea Nitrogen (BUN) 12 9 - 16 mg/dL [facility] Creatinine, Serum 0.78 0.5 - 1.4 mg/dL [facility] Creatinine Clr Calc Pharmacy 68.7 [facility] Comment:Provided height and weight: 162.56 cm,63.503 kg.eGFR (calculated from the MDRD study equation) and eCrCl(calculated from the Cockcroft-Gault equation) are based ondifferent parameters and may not yield comparable results.If eCrCl result is absurd, please check patient'sheight/weight. Estimated Glomerular Filt Rate >60 [facility] Comment:Chronic Kidney Disea se: Estimated GFR < 60 mL/min/1.90f4Mqammf Kidney Disease: Estimated GFR < 15 mL/min/1.73m2 Glucose 497(HH) 60 - 115 mg/dL [facility] Comment:Critical value for t est(s): GLUCOSE Results called to jenyn back by: ANNE Person calling:[email or web address] Date: 07/11/24Time:2210 Calcium 9.6 8.4 - 10.2 mg/dL [facility] Bilirubin, Total 1.2(H) 0.0 - 1.0 mg/dL [facility] Aspartate Amino Transferase 16 5 - 31 U/L [facility] Alanine Aminotransferase 14 0 - 31 U/L [facility] Total Protein 8.2(H) 6.5 - 8.0 g/dL [facility] Albumin Level 4.1 3.5 - 5.0 g/dL [facility] Alkaline Phosphatase 105 39 - 117 U/L [facility] 07/11/2024 9:43 PM EST 07/11/2024 9:49 PM EST us Generic External Data Provider LAB BLOOD ORDERAB LES Final Result Performing Organization Address City/[facility]/ZIP Co de Phone Number [facility] [address] [place] [phone] * (ABNORMAL) Glucose, Whole Blood (07/11/2024 9:15 PM EST) Glucose, Whole Blood 495(HH) 60 - 115 mg/dL [facility] Comment:METER #: [id number] 07/11/2024 9:15 PM EST 07/11/2024 9:19 PM EST us Generic External Data Provider LAB BLOOD ORDERAB LES Final Result Performing Organization Address City/[facility]/ZIP Co de Phone Number [facility] [address] [place] [phone] * BI Mammogram Screening Tomosynthesis Bilateral (03/01/2023 12:51 PM EDT) Anatomical Region Laterality Modality Breast Bilateral Mammography 03/01/2023 12:5 1 PM EDT Narrative 03/15/2023 9:27 AM EDT ? [facility] ? [address] ?[place] [address] ? Mammography Report ? Signed ? Patient: Wendy Rivers ?MR#: [id number] ?? 241 ? : 1965 ?Acct:[id number] ? Age/Sex: 57 / F ?ADM Date: 03/01/23 ? Loc: HO.MAMMO ? Attending Dr: Dallas Butler MD ? Ordering Physician: Dallas Butler MD ?Resu ?? lts: 1Negative ? Date of Service: 03/01/23 ?Follow Up: 1 Year From Orig ?? inal Mammogram ? Procedure(s): MM tomosynthesis screening BI ?? Accession Number(s): [id number] ? cc: Dallas Butler MD ? EXAMINATION: [...] ?03/15/23922 ? DD/ 1251 ? TD/TT: ? Taximeter Repairer: ? Procedure Note Vahid, Image - 03/20/2023 [facility] [address] [place] [address] Mammography Report Signed Patient: Jaun Rivers#: [id number] 241 : 1965Acct:[id number] Age/Sex: 57 / FADM Date: 03/01/23 Loc: [place] Attending Dr: Dallas Butler MD Ordering Physician: Dallas Butler MDResu lts: 1Negative Date of Service: 03/01/23Follow Up: 1 Year From Orig inal Mammogram Procedure(s): MM tomosynthesis screening BI Accession Number(s): [id number] cc: Dallas Butler MD EXAMINATION: MM SCREENING [...] signed by Amish Chicas MD in OV> 03/15/23922 DD/ 1251 TD/TT: Taximeter Repairer: us Dallas Romero MD IMG BI PROCEDURES Mykel andrés Result - Final * (ABNORMAL) Lipid Panel with Reflex to Direct LDL (06/01/2022 9:27 AM EST) Cholesterol, Total 90 <200 mg/dL [facility] [employer] HDL Cholesterol 35(L) > OR = 50 mg/dL [facility] [employer] Triglycerides 113 <150 mg/dL [facility] [employer] LDL Cholesterol 35 mg/dL (calc) [facility] [employer] Comment: Reference range: <100 Desirable range <100 mg/dL for primary prevention; ?? <70 mg/dL for patients with CHD or diabetic patients with > or = 2 CHD risk factors. LDL-C is now calculated using the Cam-Castaneda calculation, which is a validated novel method providing better accuracy than the Friedewald equation in the estimation of LDL-C. Cam SS et al. RONNIE. 2013;310(19): 8815-1222 (http://education.[employer]/faq/PMK082) Chol/HDLC Ratio 2.6 <5.0 (calc) [facility] [employer] Non-HDL Cholesterol 55 <130 mg/dL (calc) [facility] Comment: For patients with diabetes plus 1 [...] BLOOD ORDERABLES Final Result Performing Organization Address City/[facility]/ZIP Co de Phone Number [address], [place] [phone] [facility] [employer] [address], ([address]) [place] [address] * MICROALBUMIN/CREATININE RATIO, RANDOM URINE (02/08/2022 12:15 PM EDT) Creatinine Urine 57.23 mg/dL [facility] Microalbum/Creati nine Ratio Ur TNP ug/mg cr [facility] Comment: Unable to calculate albumin/creatinine ratio due to low microalbumin or creatinine result. Microalbumin Urine <5.0 mg/L [facility] 02/08/2022 12:1 5 PM EDT Historical Provider HISTORICAL/NON ORDERABLE LABS Final Result Performing Organization Address City/[facility]/ZIP Co de Phone Number [facility] [address] [place] [address], * THINPREP PAP (12/29/2020 9:22 AM EDT) [...] historic and ?? current clinical information. ?? Records Management Specialist : SEE COMMENT [facility] Comment: KF, CT(ASCP) CT screening location: [address] ??[address] Interpretation/R esult: Negative for intraepithelial lesion or [...] Nancy CRAVEN LAB PATHOLOGY ORDERABLES Final Result [facility] [address] * HPV mRNA E6/E7 (12/29/2020 9:22 AM EDT) HPV nRNA E6/E7 Not Detected Not Detected [facility] Comment: Methodology: Mowing Machine Operator-Mediated Amplification This assay detects E6/E7 viral messenger RNA (mRNA) from 14 high-risk HPV types (16,18,31,33,35,39,45,51,52,56,58,59,66,68). ? The analytical performance characteristics of this assay have been determined by [facility]. The modifications have not been cleared or approved by the FDA. This assay has been validated pursuant to the CLIA regulations and is used for clinical purposes. ?? For additional information, please refer to http://education.[employer]/faq/WPY695o6 (This link if provided for information/ educational purposes only.) 12/29/2020 9:22 AM EDT us Nancy Erika CN LAB BLOOD ORDERABLES Daniela l Result [facility] [address] [place] [address], from Last 3 Months or Most Recently Relevant to Health Maintenance Insurance [employer] Care Teams Oil Truck Driver Relationship Specialty Start Date End Date Dallas Menard MD [address] [place] [phone] PCP - General Internal Medicine 08/11/15
== END 2024-08-13 10:56 | disposition home or self-care (01) ==
PROVIDERS: PCP Internal Medicine; Visit Provider Registered Nurse Diabetes Educator
DX: E11.9 Type 2 diabetes mellitus without complications (principal)

== ENCOUNTER → 2024-08-13 10:29 | Outpatient (BNVA) | payer MEDICAID, SELFPAY | PROVIDERS: PCP Internal Medicine; Visit Provider Registered Nurse Diabetes Educator | DX: E11.9 Type 2 diabetes mellitus without complications (principal) | CPT/HCPCS: 99211 ==

== ENCOUNTER 2024-08-14 13:19 | Outpatient (AMB) | payer MEDICAID, SELFPAY ==
--- NOTE | 2024-08-14 13:37 | A.OFFVIS_ITS ---
Vital Signs 08/14/24 13:38 Height 5 ft 2 in Weight 138 lb 14.259 oz BMI 25.4 BP 112/60 Blood Pressure Location Lt brachial Position Sitting Pulse 72 Pulse Source Pulse Oximeter Intake Visit Reasons: [facility] dc- abn echo at [facility] Inventory Planner Required: Yes Inventory Planner Name: STUART [id number] Allergies morphine [MORPHINE] Allergy (Intermediate, Verified 07/30/24 14:04) ITCHY, RASH oxycodone Allergy (Verified 07/30/24 14:04) Hives Medication List - Last Reconciled 08/14/24 by Tab Jimenes MD acetaminophen 650 mg (2 x 325 mg) PO Q6H PRN albuterol sulfate 2.5 mg (3 mL) inhalation Q4H PRN amlodipine 10 mg PO DAILY aspirin (Adult Low Dose Aspirin) 81 mg PO BEDTIME atorvastatin 80 mg PO DAILY blood-glucose sensor ([employer] Angélica 3 Sensor device) As directed blood-glucose,vehicle leasing and rental manager,cont (Free[employer] Angélica 3 [place]) As directed celecoxib 200 mg PO BID PRN cyanocobalamin (vitamin B-12) 1,000 mcg PO QAM docusate sodium 100 mg PO BEDTIME dulaglutide (Trulicity) 1.5 mg (0.5 mL) subcut QWEEK 28 days gabapentin 100 mg PO BEDTIME insulin aspart U-100 (Novolog FlexPen U-100 Insulin aspart) 12 units (0.12 mL) subcut TID 30 days insulin degludec (Tresiba FlexTouch U-200 insulin) 100 units (0.5 mL) subcut DAILY 30 days isosorbide mononitrate ER 30 mg PO QAM lidocaine 5% (Lidoderm) 1 patch topical DAILY PRN lisinopril 40 mg PO DAILY loratadine 10 mg PO DAILY meclizine 25 mg PO TID PRN metformin ER 1,000 mg PO DAILY@1700 metformin ER 500 mg PO DAILY metoprolol tartrate 100 mg PO DAILY mometasone 200 mcg/actuation (Asmanex HFA) 2 puffs inhalation BID omeprazole 40 mg PO DAILY oseltamivir (Tamiflu) 75 mg PO BID prednisone See Taper mg PO DIRECTED [transport belt As directed] HPI Comments Details: Wendy returns for follow-up. To recall, she was seen around 2018 initially. At that time, she was having chest pains with numerous hospitalizations with elevated troponins at different times. That led to cardiac catheterization but no significant disease. It was felt that she might have microvascular dysfunction. She also had severe LV dysfunction around that time with EF of 10- 15%. Then, she was seen in 2022 for follow-up. Then saw nurse practitioner in one further visit and then comes today. It seems that she has been having lot of complaints. She has been having dizzy spells/falls extra. Each time she gets up she could feel dizzy. Seems like orthostatic hypotension. She was recently hospitalized at [facility] for that. Thought to be either orthostatic versus neurogenic causes. She also had an echocardiogram that was concerning for paradoxical low-flow moderate to severe aortic stenosis. Subsequently, she was discharged home with plans for outpatient follow-up. Family say that she still feels just about the same. Recurrent episodes of feeling dizzy. She also gets chest pains somewhat randomly. No specific patterns. She has uncontrolled diabetes at baseline. [facility] Medical History Atherosclerotic cardiovascular disease Cardiomyopathy Type 2 diabetes mellitus with diabetic polyneuropathy History of CVA (cerebrovascular accident) Overweight HLD (hyperlipidemia) DM2 (diabetes mellitus, type 2) Asthma Hypertension Depression Myocardial infarction Surgical History Hx of cholecystectomy Hx of section Family History Father No problems noted. Mother No problems noted. Social History Household Members: Family Housing: Apartment Do you presently have visiting nurse or other home services: No Alcohol intake: never Patient Tobacco Use Status: Former Tobacco user service: No Current occupational status: disabled Review of Systems Const Denies weakness ENT Denies dizziness Card Denies chest pain, Denies chest pain with activity, Denies syncope, Denies rapid heart rate, Denies pedal edema, Denies edema, Denies leg edema, Denies lightheadedness, Denies palpitations, Denies dyspnea, Denies dyspnea on exertion and Denies orthopnea Resp Denies cough, Denies dyspnea and Denies dyspnea on exertion GI Denies hematochezia and Denies change in stool character Musc Denies abnormal gait, Denies muscle cramps, Denies muscle weakness, Denies numbness, Denies radiating pain into limb and Denies tingling Neuro Denies abnormal gait, Denies dizziness, Denies syncope, Denies numbness, Denies tingling and Denies weakness Endo Denies palpitations Physical Exam Vital Signs: Last Vital Signs Pulse 72 08/14/24 13:38 BP 112/60 08/14/24 13:38 BMI result Body Mass Index 25.4 Const General: comfortable and no acute distress Orientation/consciousness: patient oriented x3 HEENT Other: Unremarkable Head: Yes normal to inspection Neck Neck: Yes normal visual inspection Chest Chest palpation & inspection: normal inspection of the chest Resp Auscultation: clear to auscultation bilaterally Cardio Palpation: normal PMI Heart sounds: S1 normal heart sound present, S2 normal heart sound present, no gallops, Murmur heart sound present systolic II/ and at the right sternal border and no rubs GI Palpation (GI): Soft to palpation Back/Spine/Pelvis Other: unremarkable Skin General skin exam: no rashes or lesions noted Neuro General: patient oriented x3 Extrem General: Yes normal to inspection Psych Mental Status: mental status grossly normal Assessment & Plan Assessment & Plan (1) Nonrheumatic aortic (valve) stenosis: Code(s): I35.0 - Nonrheumatic aortic (valve) stenosis Category: Medical Plan: Recently had an echocardiogram at [facility] during hospitalization. That has been reported as moderate to severe paradoxical, low-flow, low gradient aortic stenosis. Mean gradient is 11 mm Hg with a calculated valve area of one cm2. Dimensionless index 0.3. Stroke volume index 28 mL/m2. In the prior study from our system in 2022, reported have rather mild stenosis. Hence I am not entirely clear if there is rapid progression versus technical error. Recommended diagnostic catheterization further evaluation to study the aortic valve better. However, highly doubt if that is actually making her feel this dizzy. (2) Cardiomyopathy: Code(s): I42.9 - Cardiomyopathy, unspecified Category: Medical Plan: In the recent study at [facility], LVEF is 50-55%. In 2018, she has been as low as 15 20%. Uncertain etiology. She has no overt heart failure symptoms or signs. (3) Atherosclerotic cardiovascular disease: Code(s): I25.10 - Atherosclerotic heart disease of [place] coronary artery without angina pectoris Category: Medical Plan: Cardiac catheterization in 2016 had proximal LAD 30% stenosis. In the recent echocardiogram at [facility], description of hypokinesis in the basal inferoseptal/inferior wall. We will repeat a diagnostic catheterization. She is at high-risk vascular disease because of uncontrolled diabetes. (4) Hypertension: Code(s): I10 - Essential (primary) hypertension Category: Medical Plan: Because of dizziness/syncopal type symptoms, we will cut back on the amlodipine. We will need to watch for rebound hypertension. (5) Syncope and collapse: Code(s): R55 - Syncope and collapse Category: Medical Plan: Possible orthostatic. She has uncontrolled diabetes and hence could have autonomic dysfunction related to that. Less likely related to aortic stenosis but that is certainly not helping either. Decrease Amlodipine dosing as above. Hopefully that helps. Plan Discussed with family who came for appointment. Orders: Orders Basic Metabolic Panel Today I25.10 - Atherosclerotic heart disease of [place] coronary artery without angina pectoris Prothrombin Time INR Today I25.10 - Atherosclerotic heart disease of [place] coronary artery without angina pectoris Cardiac Cath LT Diagnostic Today I25.10 - Atherosclerotic heart disease of [place] coronary artery without angina pectoris, I35.0 - Nonrheumatic aortic (valve) stenosis Complete Blood Count no Diff Today I25.10 - Atherosclerotic heart disease of [place] coronary artery without angina pectoris Medications: New amlodipine 5 mg PO DAILY 30 tabs 5RF Coding Level of Care Code Est Pt Level 4 (60476) Complex EM visit Add On G2211 Diagnoses Nonrheumatic aortic (valve) stenosis I35.0 Cardiomyopathy I42.9 Atherosclerotic cardiovascular disease I25.10 Hypertension I10 Syncope and collapse R55
[2024-08-14 13:38] VITALS: BP 112/60; PULSE 72; BMI 25.4
--- OUTSIDE RECORDS SUMMARY | 2024-08-14 14:33 | XMS_ITS | Encounter Summary ---
Author Organization [employer] Address [address] [facility] 7t [place] [address] Care Team Providers Care Brakes Inspector Name Role Phone Dallas Menard MD Primary Care Provide r Encounter Details Date Type Department Care Team (Late Contact Info) Description 10/16/2022 Orders Only [facility] [address] [place] [phone] Christie Strauss LPN Social History Tobacco Use [...] Office Visit [facility] [address] [place] [phone] Dallas Menard MD [address] [place] [address] 11/06/2024 10:15 AM EDT Office Visit [facility] [address] [place] [phone] Dallas Menard MD [address] [place] [address] documented as of this encounter Visit Diagnoses Not on filedocumented in this encounter Additional Health Concerns Assessment Noted Time PHQ-9 Depression Total Score: 5 05/30/19 23 11:51 AM EST documented as of this encounter Care Teams Brakes Inspector Relationship Specialty Start Date End Date Dallas Menard MD [address] [place] [address] PCP - General Internal Medicine 08/11/15 documented as of this encounter
--- OUTSIDE RECORDS SUMMARY | 2024-08-14 14:33 | XMS_ITS | Encounter Summary ---
Author Organization [employer] [facility] Address [address] [facility] 7t [place] [address] Care Team Providers Care Water Plant Pump Operator Supervisor Name Role Phone Dallas Menard MD Primary Care Provide r Reason for Visit * Reason Comments Med Refill Encounter Details Date Type Department Care Team (Late st Contact Info) Description 07/20/2022 Refill [facility] [address] [place], [place] [phone] Alyce Murphy ANP [address] [place], [place] [phone] Social History Tobacco Use Types Packs/Day Years [...] Description 08/26/2024 9:30 AM EDT Office Visit [facility] [address] [place], [place] [phone] Dallas Menard MD [address] [place], [place] [phone] 11/06/2024 10:15 AM EDT Office Visit [facility] [address] [place] [address] Dallas Menard MD [address] [place] [address] documented as of this encounter Visit Diagnoses Not on filedocumented in this encounter Additional Health Concerns Assessment Noted Time PHQ-9 Depression Total Score: 5 05/30/19 23 11:51 AM EST documented as of this encounter Care Teams Water Plant Pump Operator Supervisor Relationship Specialty Start Date End Date Dallas Menard MD [address] [place] [address] PCP - General Internal Medicine 08/11/15 documented as of this encounter
--- OUTSIDE RECORDS SUMMARY | 2024-08-14 14:33 | XMS_ITS | Encounter Summary ---
Author Organization [employer] Address [address] [facility] 7t [place] [address] Care Team Providers Care Configuration Technician Name Role Phone Dallas Menard MD Primary Care Provide r Encounter Details Date Type Department Care Team (Late st Contact Info) Description 07/11/2022 Orders Only [facility] [address] [place], [place] [phone] Jennifer Lopez LPN Social History Tobacco Use [...] Description 08/26/2024 9:30 AM EDT Office Visit [facility] [address] [place] [address] [phone] Dallas Menard MD [address] [place] [address] 11/06/2024 10:15 AM EDT Office Visit [facility] [address] [place] [phone] Dallas Menard MD [address] [place] [address] documented as of this encounter Visit Diagnoses Not on filedocumented in this encounter Additional Health Concerns Assessment Noted Time PHQ-9 Depression Total Score: 5 05/30/19 23 11:51 AM EST documented as of this encounter Care Teams Configuration Technician Relationship Specialty Start Date End Date Dallas Menard MD [address] [place] [address] PCP - General Internal Medicine 08/11/15 documented as of this encounter
--- OUTSIDE RECORDS SUMMARY | 2024-08-14 14:33 | XMS_ITS | Encounter Summary ---
Author Organization [employer] Address [address] [facility] [address] [facility] [address] 7t [place] [address] Care Team Providers Care Adult Services Librarian Name Role Phone Dallas Menard MD Primary Care Provide r Encounter Details Date Type Department Care Team ([facility] st Contact Info) Description 06/19/2024 Refill [facility] [address] [place], [place] [phone] Dallas Menard MD [address] [place], [place] [phone] Hypertension associated with diabetes (CMS/HCC) (CMS/HCC) Social [...] Description 08/26/2024 9:30 AM EDT Office Visit [facility] [address] [place] [phone] Dallas Menard MD [address] [place] [address] 11/06/2024 10:15 AM EDT Office Visit [facility] [address] [place] [phone] Dallas Menard MD [address] [place] [address] documented as of this encounter Visit Diagnoses Diagnosis Hypertension associated with diabetes (CMS/[facility]) Unspecified essential hypertension documented in this encounter Additional Health Concerns Assessment Noted Time PHQ-9 Depression Total Score: 14 024 3:35 PM EDT documented as of this encounter Care Teams Adult Services Librarian Relationship Specialty Start Date End Date Dallas Menard MD [address] [place] [address] PCP - General Internal Medicine 08/11/15 documented as of this encounter
--- OUTSIDE RECORDS SUMMARY | 2024-08-14 14:33 | XMS_ITS | Encounter Summary ---
Author Organization [employer] Address [address] [facility] [address] 7[address] [place] [address] Care Team Providers Care Photography Assistant Name Role Phone Dallas Menard MD Primary Care Provide r Encounter Details Date Type Department Care Team ([facility] st Contact Info) Description 06/23/2024 Telephone [facility] [address] [place], [place] [phone] Dallas Menard MD [address] [place], [place] [phone] Social History Tobacco Use Types Packs/Day Years [...] is your housing situation today? I have dleonte zurita 07/19/[address] you [...] 9:30 AM EDT Office Visit [facility] [address] [place] [phone] Dallas Menard MD [address] [place] [address] 11/06/2024 10:15 AM EDT Office Visit [facility] [address] [place] [phone] Dallas Menard MD [address] [place] [address] documented as of this encounter Visit Diagnoses Not on filedocumented in this encounter Additional Health Concerns Assessment Noted Time PHQ-9 Depression Total Score: 14 024 3:35 PM EDT documented as of this encounter Care Teams Photography Assistant Relationship Specialty Start Date End Date Dallas Menard MD [address] [place] [address] PCP - General Internal Medicine 08/11/15 documented as of this encounter
--- OUTSIDE RECORDS SUMMARY | 2024-08-14 14:33 | XMS_ITS | Encounter Summary ---
Author Organization [employer] Address [address] [facility] [address] 7[address] [place] [address] Care Team Providers Care Care Management Coordinator Name Role Phone Dallas Menard MD Primary Care Provide r Encounter Details Date Type Department Care Team ([facility] st Contact Info) Description 06/23/2024 Refill [facility] [address] [place], [place] [phone] Dallas Menard MD [address] [place], [place] [phone] Hypertension associated with diabetes (CMS/HCC) (CMS/HCC) Social [...] Description 08/26/2024 9:30 AM EDT Office Visit [facility] [address] [place] [phone] Dallas Menard MD [address] [place] [address] 11/06/2024 10:15 AM EDT Office Visit [facility] [address] [place] [address] Dallas Menard MD [address] [place] [address] documented as of this encounter Visit Diagnoses Diagnosis Hypertension associated with diabetes (CMS/[facility]) Unspecified essential hypertension documented in this encounter Additional Health Concerns Assessment Noted Time PHQ-9 Depression Total Score: 14 024 3:35 PM EDT documented as of this encounter Care Teams Care Management Coordinator Relationship Specialty Start Date End Date Dallas Menard MD [address] [place] [address] PCP - General Internal Medicine 08/11/15 documented as of this encounter
--- OUTSIDE RECORDS SUMMARY | 2024-08-14 14:33 | XMS_ITS | Encounter Summary ---
Author Organization [employer] Address [address] [facility] 7t [place] [address] Care Team Providers Care Licensed Clinician Name Role Phone Dallas Menard MD Primary Care Provide r Reason for Visit * Reason Onset Date Comments Verbal Order 08/12/2024 Encounter Details Date Type Department Care Team ([facility] st Contact Info) Description 08/12/2024 Telephone [facility] [address] [place], [place] [phone] Dallas Menard MD [address] [place] [address] Verbal Order Social History Tobacco Use Types [...] 12:58 PM EDT Tc from juju with [facility] requesting Verbal Orders for Home Nursing, Physical TherapyOccupational therapy to Start tomorrow on 08/13/24. Contact Juju at [phone] documented in this encounter Plan of Treatment Upcoming Encounters Date Type Department Care Team (Late st Contact Info) Description 08/26/2024 9:30 AM EDT Office Visit [facility] [address] [place], [place] [phone] Dallas Menard MD [address] [place], [place] [phone] 11/06/2024 10:15 AM EDT Office Visit [facility] [address] [place], [place] [phone] Dallas Menard MD [address] [place] [address] documented as of this encounter Visit Diagnoses Not on filedocumented in this encounter Additional Health Concerns Assessment Noted Time PHQ-9 Depression Total Score: 13 025 8:43 AM EDT documented as of this encounter Care Teams Licensed Clinician Relationship Specialty Start Date End Date Dallas Menard MD [address] [place], [place] [phone] PCP - General Internal Medicine 08/11/15 documented as of this encounter
--- OUTSIDE RECORDS SUMMARY | 2024-08-14 14:33 | XMS_ITS | Encounter Summary ---
Author Organization [employer] Address [address] [facility] 7t [place] [address] Care Team Providers Care Icu Clerk Name Role Phone Dallas Menard MD Primary Care Provide r Encounter Details Date Type Department Care Team (Late Contact Info) Description 10/03/2022 Orders Only [facility]S [address] [place], [place] [phone] Jennifer Lopez LPN Social History Tobacco Use [...] 9:30 AM EDT Office Visit [facility] MEDICINE [address] [place] [address] [phone] Dallas Menard MD [address] [place] [address] 11/06/2024 10:15 AM EDT Office Visit [facility] [address] [place] [phone] Dallas Menard MD [address] [place] [address] documented as of this encounter Visit Diagnoses Not on filedocumented in this encounter Additional Health Concerns Assessment Noted Time PHQ-9 Depression Total Score: 5 05/30/19 23 11:51 AM EST documented as of this encounter Care Teams Icu Clerk Relationship Specialty Start Date End Date Dallas Menard MD [address] [place] [address] PCP - General Internal Medicine 08/11/15 documented as of this encounter
--- OUTSIDE RECORDS SUMMARY | 2024-08-14 14:33 | XMS_ITS | Encounter Summary ---
Author Organization [employer] Address [address] [facility] 7t [place] [address] Care Team Providers Care Refractory Products Supervisor Name Role Phone Dallas Menard MD Primary Care Provide r Reason for Visit * Reason Onset Date Comments Appointment Request 07/10/2024 Encounter Details Date Type Department Care Team ([facility] st Contact Info) Description 07/10/2024 Telephone [facility] [address] [place], [place] [phone] Dallas Menard MD [address] [place] [address] Appointment Request Social History Tobacco Use Types [...] EST Tc from pt requesting appointment , tech writer advised theres no soon appointments available as if any symptoms tech writer could assist with triage nurse as pt denied. documented in this encounter Plan of Treatment Upcoming Encounters Date Type Department Care Team (Late st Contact Info) Description 08/26/2024 9:30 AM EDT Office Visit [facility] [address] [place] [phone] Dallas Menard MD [address] [place] [phone] 11/06/2024 10:15 AM EDT Office Visit [facility] [address] [place] [phone] Dallas Menard MD [address] [place] [address] documented as of this encounter Visit Diagnoses Not on filedocumented in this encounter Additional Health Concerns Assessment Noted Time PHQ-9 Depression Total Score: 14 024 3:35 PM EDT documented as of this encounter Care Teams Refractory Products Supervisor Relationship Specialty Start Date End Date Dallas Menard MD [address] [place] [address] PCP - General Internal Medicine 08/11/15 documented as of this encounter
--- OUTSIDE RECORDS SUMMARY | 2024-08-14 14:33 | XMS_ITS | Encounter Summary ---
Author Organization [employer] Address [address] [facility] 7t [place] [address] Care Team Providers Care Hand Molder Meat Name Role Phone Dallas Menard MD Primary Care Provide r Encounter Details Date Type Department Care Team (Late st Contact Info) Description 08/14/2022 Orders Only [facility] MED [facility]S [address] [place], [place] [phone] Jennifer Lopez LPN Social History Tobacco Use [...] Office Visit [facility] MEDICINE [address] [place] [address] [phone] Dallas Menard MD [address] [place] [address] 11/06/2024 10:15 AM EDT Office Visit [facility] MED[facility]INE [address] [place] [phone] Dallas Menard MD [address] [place] [address] documented as of this encounter Visit Diagnoses Not on filedocumented in this encounter Additional Health Concerns Assessment Noted Time PHQ-9 Depression Total Score: 5 05/30/19 23 11:51 AM EST documented as of this encounter Care Teams Hand Molder Meat Relationship Specialty Start Date End Date Dallas Menard MD [address] [place] [address] PCP - General Internal Medicine 08/11/15 documented as of this encounter
--- OUTSIDE RECORDS SUMMARY | 2024-08-14 14:33 | XMS_ITS | Encounter Summary ---
Author Organization [employer] Address [address] [facility] [address] [place] [address] Care Team Providers Care Pull Up Hand Name Role Phone Dallas Menard MD Primary Care Provide r Reason for Visit * Reason Onset Date Comments Nurse Triage 04/21/2024 Encounter Details Date Type Department Care Team ([facility] st Contact Info) Description 04/21/2024 Telephone [facility] MEDICINE [address] [place], [place] [phone] Dallas Menard MD [address] [place] [address] Nurse Triage Social History Tobacco Use Types [...] 04/21/2024 10:05 AM EST Triage call [place] [facility] [id number] [place]. Pt TEOFILO Diaz takes call for Pt. Pt was seen in [facility] 04/18/24 due to fall and discovered UTI. [...] booking. Pt is advised to come to [facility] if pain isnot effected by tylenol. Protocol [...] ED visit on : Date: 04/18/24 Hospital: [facility] ED Seen for: Fell Symptomatic Yes Pt [...] Description 08/26/2024 9:30 AM EDT Office Visit [facility] MEDICINE [address] [place] [address] Dallas Menard MD [address] [place] [address] 11/06/2024 10:15 AM EDT Office Visit [facility] [address] [place] [address] Dallas Menard MD [address] [place] [phone] documented as of this encounter Visit Diagnoses Not on filedocumented in this encounter Additional Health Concerns Assessment Noted Time PHQ-9 Depression Total Score: 14 024 3:35 PM EDT documented as of this encounter Care Teams Pull Up Hand Relationship Specialty Start Date End Date Dallas Menard MD [address] [place] [phone] PCP - General Internal Medicine 08/11/15 documented as of this encounter
--- OUTSIDE RECORDS SUMMARY | 2024-08-14 14:34 | XMS_ITS | Encounter Summary ---
Author Organization [employer] Address [address] [facility] [address] [place] [address] Care Team Providers Care Metal Off Bearer Name Role Phone Dallas Menard MD Primary Care Provide r Reason for Visit * Reason Comments Med Refill Encounter Details Date Type Department Care Team ([facility] st Contact Info) Description 12/22/2023 Refill [facility] [address] [place], [place] [phone] Dallas Menard MD [address] [place] [address] Chronic abdominal pain Social History Tobacco Use [...] Description 08/26/2024 9:30 AM EDT Office Visit [facility] MEDICINE [address] [place] [phone] Dallas Menard MD [address] [place] [phone] 11/06/2024 10:15 AM EDT Office Visit [facility] MEDICINE [address] [place] [phone] Dallas Menard MD [address] [place] [phone] documented as of this encounter Visit Diagnoses Diagnosis Chronic abdominal pain Abdominal pain, unspecified site documented in this encounter Additional Health Concerns Assessment Noted Time PHQ-9 Depression Total Score: 14 024 3:35 PM EDT documented as of this encounter Care Teams Metal Off Bearer Relationship Specialty Start Date End Date Dallas Menard MD [address] [place] [phone] PCP - General Internal Medicine 08/11/15 documented as of this encounter
--- OUTSIDE RECORDS SUMMARY | 2024-08-14 14:34 | XMS_ITS | Clinical Summary ---
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 A/B, and RSV RNA, Ql NAAT (07/11/2024 9:43 PM EST) Influenza A PCR POSITIVE(A) Negative [facility] Influenza B PCR NEGATIVE Negative [facility] Resp Syncy Virus RNA Qual PCR NEGATIVE Negative [facility] SARS COV2 PCR NEGATIVE Negative [facility] Comment:All test results mus t be [...] use by authorized laboratories.Testing performed on the [email or web address] GeneXpert utilizingreal-time RT-PCR.All SARS CoV2 and positive influenza A/B results arereported to [facility]. 07/11/2024 9:43 PM EST 07/11/2024 9:49 PM EST us Generic External Data Provider LAB MICROBIOLOGY - GENERAL ORDERABLES Final Result [facility] [address] [place] [address] [phone] * Drug Monitoring, Panel 1, Screen, Urine (07/11/2024 9:43 PM EST) Opiate Screen Urine Not Detected Not Detect [facility] Comment:Opiate cut-off is 30 0 ng/mL.Positive results are unconfirmed and should not be used fornon-medical purposes. Barbiturates, Urine Not Detected Not Detect [facility] Comment:Barbiturate cut-off is 200 ng/mL.Positive results are unconfirmed and should not be used fornon-medical purposes. Phencyclidine Screen Urine Not Detected Not Detect [facility] Comment:Phencyclidine cut-of f is 25 ng/mL.Positive results are unconfirmed and should not be used fornon-medical purposes. Amphetamine Screen Urine Not Detected Not Detect [facility] Comment:Amphetamine cut-off is 1000 ng/mL.Positive results are unconfirmed and should not be used fornon-medical purposes. Benzodiazepines Screen Urine Not Detected Not Detect [facility] Comment:Benzodiazepine cut-o ff is 200 ng/mL.Positive results are unconfirmed and should not be used fornon-medical purposes. Cocaine Screen Urine Not Detected Not Detect [facility] Comment:Cocaine cut-off is 3 00 ng/mL.Positive results are unconfirmed and should not be used fornon-medical purposes. Cannabinoid Screen Urine Not Detected Not Detect [facility] Comment:Cannabinoid cut-off is 50 ng/mL.Positive results are unconfirmed and should not be used fornon-medical purposes. Methadone Screen, Urine Not Detected Not Detect ng/mL [facility] Comment:Methadone cut-off is 300 ng/mL.Positive results are unconfirmed and should not be used fornon-medical purposes. FENTANYL URINE Not Detected Not Detect [facility] Comment:Fentanyl cut-off is 1 ng/mL.Positive results are unconfirmed and should not be used fornon-medical purposes. Oxycodone Urine Screen Not Detected Not Detect ng/mL [facility] Comment:Oxycodone cut-off is 100 ng/mL.Positive results are unconfirmed and should not be used fornon-medical purposes. Buprenorphine Screen Not Detected Not Detect ng/mL [facility] Comment:Buprenorphine cut-of f is 5 ng/mL.Positive results are unconfirmed and should not be used fornon-medical purposes. 07/11/2024 9:43 PM EST 07/11/2024 9:49 PM EST us Generic External Data Provider LAB URINE ORDERAB LES Final Result [facility] [address] [place] [address] [phone] * (ABNORMAL) CBC auto differential (07/11/2024 9:43 PM EST) White Blood Count 9.4 4.8 - 10.8 X10*3/uL [facility] Red Blood Count 5.53(H) 4.20 - 5.50 X10*6/uL [facility] Hemoglobin 15.1 12.0 - 16.0 g/dl [facility] Hematocrit 44.1 37.0 - 47.0 % [facility] Mean Corpuscular Volume 79.7(L) 80.0 - 98.0 fL [facility] Mean Corpuscular Hemoglobin 27.3 27.0 - 33.0 pg [facility] Mean Corpuscular HGB Conc 34.2 31.0 - 35.0 g/dl [facility] Red Cell Distribution Width 12.5 11.0 - 16.0 % [facility] Platelet Count 271 160 - 400 X10*3/uL [facility] Mean Platelet Volume 10.3 9.4 - 12.3 fL [facility] Neutrophils Percent Auto 89.5(H) 45 - 73 % [facility] Imm Gran Pct Auto 0.3 0.0 - 0.4 % [facility] Lymphocytes Percent Auto 4.9(L) 20 - 40 % [facility] Monocytes Percent Auto 3.9 2 - 11 % [facility] Eosinophils Percent Auto 1.0 0 - 4 % [facility] Basophils Percent Auto 0.4 0 - 2 % [facility] NRBC Pct Auto 0.0 0.0 - 0.2 /100WBC [facility] Neutrophils Absolute Auto 8.4(H) 2.0 - 8.3 x10*3/uL [facility] Imm Gran Abs Auto 0.03 0.00 - 0.03 X10*3/uL [facility] Lymphocytes Absolute Auto 0.5(L) 1.2 - 4.9 X10*3/uL [facility] Monocytes Absolute Auto 0.4 0.1 - 1.2 X10*3/uL [facility] Eosinophils Absolute Auto 0.1 0.0 - 0.4 X10*3/uL [facility] Basophils Absolute Auto 0.0 0.0 - 0.2 X10*3/uL [facility] NRBC Abs Auto 0.000 0.0 - 0.012 X10*3/uL [facility] 07/11/2024 9:43 PM EST 07/11/2024 9:49 PM EST us Generic External Data Provider LAB BLOOD ORDERAB LES Final Result [facility] [address] [place] [phone] * (ABNORMAL) Comprehensive Metabolic Panel (07/11/2024 9:43 PM EST) Sodium 130(L) 135 - 145 mmol/L [facility] Potassium 4.4 3.3 - 5.1 mmol/L [facility] Chloride 95(L) 96 - 108 mmol/L [facility] Carbon Dioxide 19(L) 22 - 29 mmol/L [facility] Anion Gap 20 12 - 20 [facility] Urea Nitrogen (BUN) 12 9 - 16 mg/dL [facility] Creatinine, Serum 0.78 0.5 - 1.4 mg/dL [facility] Creatinine Clr Calc Pharmacy 68.7 [facility] Comment:Provided height and weight: 162.56 cm,63.503 kg.eGFR (calculated from the MDRD study equation) and eCrCl(calculated from the Cockcroft-Gault equation) are based ondifferent parameters and may not yield comparable results.If eCrCl result is absurd, please check patient'sheight/weight. Estimated Glomerular Filt Rate >60 [facility] Comment:Chronic Kidney Disea se: Estimated GFR < 60 mL/min/1.18r0Krahhh Kidney Disease: Estimated GFR < 15 mL/min/1.73m2 Glucose 497(HH) 60 - 115 mg/dL [facility] Comment:Critical value for t est(s): GLUCOSE Results called to jenny back by: ANNE Person calling:[email or web address] Date: 07/11/24Time:2210 Calcium 9.6 8.4 - 10.2 mg/dL [facility] Bilirubin, Total 1.2(H) 0.0 - 1.0 mg/dL [facility] Aspartate Amino Transferase 16 5 - 31 U/L [facility] Alanine Aminotransferase 14 0 - 31 U/L [facility] Total Protein 8.2(H) 6.5 - 8.0 g/dL [facility] Albumin Level 4.1 3.5 - 5.0 g/dL [facility] Alkaline Phosphatase 105 39 - 117 U/L [facility] 07/11/2024 9:43 PM EST 07/11/2024 9:49 PM EST us Generic External Data Provider LAB BLOOD ORDERAB LES Final Result [facility] [address] [place], [place] [phone] * (ABNORMAL) Glucose, Whole Blood (07/11/2024 9:15 PM EST) Glucose, Whole Blood 495(HH) 60 - 115 mg/dL [facility] Comment:METER #: [id number] 07/11/2024 9:15 PM EST 07/11/2024 9:19 PM EST us Generic External Data Provider LAB BLOOD ORDERAB LES Final Result [facility] [address] [facility] [place] [address] [phone] * BI Mammogram Screening Tomosynthesis Bilateral (03/01/2023 12:51 PM EDT) Anatomical Region Laterality Modality Breast Bilateral Mammography 03/01/2023 12:5 1 PM EDT Narrative 03/15/2023 9:27 AM EDT ? [facility] ? [address] ?[place] [address] ? Mammography Report ? Signed ? Patient: Rivers,Wendy ?MR#: [id number] ?? 241 ? : 1965 ?Acct:[id number] ? Age/Sex: 57 / F ?ADM Date: 03/01/23 ? Loc: HO.MAMMO ? Attending Dr: Dallas Butler MD ? Ordering Physician: Dallas Butler MD ?Resu ?? lts: 1Negative ? Date of Service: 03/01/23 ?Follow Up: 1 Year From Orig ?? inal Mammogram ? Procedure(s): MM tomosynthesis screening BI ?? Accession Number(s): [id number] ? cc: Dallas Butler MD ? EXAMINATION: [...] ?03/15/23922 ? DD/ 1251 ? TD/TT: ? Railcar Carpenter: ? Procedure Note Gena Redding - 03/20/2023 [facility] [address] [place] [address] [place] [address] Mammography Report Signed Patient: Wendy RiversMR#: [id number] 241 : 1965Acct:[id number] Age/Sex: 57 / FADM Date: 03/01/23 Loc: HO.MAMMO Attending Dr: Dallas Butler MD Ordering Physician: Dallas Butler MDResu lts: 1Negative Date of Service: 03/01/23Follow Up: 1 Year From Orig ina Mammogram Procedure(s): MM tomosynthesis screening BI Accession Number(s): [id number] cc: Dallas Butler MD EXAMINATION: MM SCREENING [...] Chicas MD Signed By: <Electronically signed by Amsih Chicas MD in OV> 03/15/23922 DD/ 1251 TD/TT: Railcar Carpenter: us Dallas Romero MD IMG BI PROCEDURES Mykel andrés Result - Final * (ABNORMAL) Lipid Panel with Reflex to Direct LDL (06/01/2022 9:27 AM EST) Cholesterol, Total 90 <200 mg/dL [facility] HDL Cholesterol 35(L) > OR = 50 mg/dL [facility] Triglycerides 113 <150 mg/dL [facility] LDL Cholesterol 35 mg/dL (calc) [facility] [place] [facility] Comment: Reference range: <100 Desirable range <100 mg/dL for primary prevention; ?? <70 mg/dL for patients with CHD or diabetic patients with > or = 2 CHD risk factors. LDL-C is now calculated using the Mary Ann calculation, which is a validated novel method providing better accuracy than the Friedewald equation in the estimation of LDL-C. Cam SS et al. RONNIE. 2013;310(19): 5074-6804 (http://education.[employer]/faq/SJG496) Chol/HDLC Ratio 2.6 <5.0 (calc) [facility] [place] [facility] Non-HDL Cholesterol 55 <130 mg/dL (calc) [facility] [place] [facility] Comment: For patients with diabetes plus 1 major ASCVD risk factor, treating to a non-HDL-C goal of <100 mg/dL (LDL-C of <70 mg/dL) is considered a therapeutic option. 06/01/2022 9:27 AM EST 06/01/2022 9:27 AM EST Narrative [facility] - 06/01/2022 9:35 PM EST FASTING:YES PATIENT UNABLE TO VOID; ADVISED TO RETURN FOR COLLECTION. FASTING: YES us Dallas Romero MD LAB BLOOD ORDERABLES Final Result [facility] [address], [place] [address] [facility] [place] [facility] [address] [facility], ([address]) [place] [address] * MICROALBUMIN/CREATININE RATIO, RANDOM URINE (02/08/2022 12:15 PM EDT) Creatinine Urine 57.23 mg/dL [facility] Microalbum/Creati nine Ratio Ur TNP ug/mg cr [facility] Comment: Unable to calculate albumin/creatinine ratio due to low microalbumin or creatinine result. Microalbumin Urine <5.0 mg/L [facility] 02/08/2022 12:1 5 PM EDT Historical Provider MD HISTORICAL/NON ORDERABLE LABS Final Result Performing Organization Address [facility] de Phone Number [facility] [address] [place] [address], * THINPREP PAP (12/29/2020 9:22 AM EDT) [...] historic and ?? current clinical information. ?? Project Construction Manager : SEE COMMENT [facility] Comment: KF, CT(ASCP) CT screening location: [address] ??[address] Interpretation/R esult: Negative for intraepithelial lesion or malignancy. [facility] LMP: NONE GIVEN [facility] Prev. BX: NONE GIVEN [facility] Prev. PAP: NONE GIVEN [facility] SOURCE: None given [facility] Statement Of Adequacy: SEE COMMENT [facility] Comment: Satisfactory for evaluation. Endocervical/transformation zone component absent. Age and/or menstrual status not provided 12/29/2020 9:22 AM EDT Nancy CRAVEN LAB PATHOLOGY ORDERABLES Final Result Performing Organization Address [facility] Co de Phone Number [facility] [address] [place] [address], * HPV mRNA E6/E7 (12/29/2020 9:22 AM EDT) HPV nRNA E6/E7 Not Detected Not Detected [facility] Comment: Methodology: Male Infertility Specialist-Mediated Amplification This assay detects E6/E7 viral messenger RNA (mRNA) from 14 high-risk HPV types (16,18,31,33,35,39,45,51,52,56,58,59,66,68). ? The analytical performance characteristics of this assay have been determined by [facility]. The modifications have not been cleared or approved by the FDA. This assay has been validated pursuant to the CLIA regulations and is used for clinical purposes. ?? For additional information, please refer to http://education.[employer]/faq/QDL349m7 (This link if provided for information/ educational purposes only.) 12/29/2020 9:22 AM EDT us Nancy James [facility] LAB BLOOD ORDERABLES Daniela champion Result [facility] [address] from Last 3 Months or Most Recently Relevant to Health Maintenance [facility] Care Teams Supervisor Pipe Manufacture Relationship Specialty Start Date End Date Dallas Menard MD [address] [place] [phone] PCP - General Internal Medicine 08/11/15
--- OUTSIDE RECORDS SUMMARY | 2024-08-14 14:34 | XMS_ITS | Encounter Summary ---
Author Organization [employer] Address [address] [facility] 7t [place] [address] Care Team Providers Care Steel Turner Name Role Phone Dallas Menard MD Primary Care Provide r Encounter Details Date Type Department Care Team (Late Contact Info) Description 07/20/2022 Orders Only [facility] [address] [place] [phone] Christie Strauss LPN Social History Tobacco Use [...] Description 08/26/2024 9:30 AM EDT Office Visit [facility] [address] [place] [phone] Dallas Menard MD [address] [place] [address] 11/06/2024 10:15 AM EDT Office Visit [facility] [address] [place] [phone] Dallas Menard MD [address] [place] [address] documented as of this encounter Visit Diagnoses Not on filedocumented in this encounter Additional Health Concerns Assessment Noted Time PHQ-9 Depression Total Score: 5 05/30/19 23 11:51 AM EST documented as of this encounter Care Teams Steel Turner Relationship Specialty Start Date End Date Dallas Menard MD [address] [place] [address] PCP - General Internal Medicine 08/11/15 documented as of this encounter
--- OUTSIDE RECORDS SUMMARY | 2024-08-14 14:34 | XMS_ITS | Encounter Summary ---
Author Organization [employer] Address [address] [facility] [address] [place] [address] Care Team Providers Care Weigh Box Tender Name Role Phone Dallas Menard MD Primary Care Provide r Reason for Visit * Reason Onset Date Comments FYI 08/14/2024 Encounter Details Date Type Department Care Team ([facility] st Contact Info) Description 08/14/2024 Telephone [facility] [address] [place], [place] [phone] Dallas Menard MD [address] [place] [address] FYI Social History Tobacco Use Types Packs/Day Years [...] encounter Miscellaneous Notes * Telephone Encounter - Bonnie Sim RN - 08/14/2024 10:19 AM EDT Noted. [facility]NA services were not able to be started today 08/14/24 and they will re- attempt to begin VNA services again tomorrow 08/15/24. * Telephone Encounter - Sheryl Angel - 08/14/2024 10:13 AM EDT Tc from [facility] with [facility] calling to inform pt was unable to start services today and will be trying again tomorrow 08/15/24. documented in this encounter Plan of Treatment Upcoming Encounters Date Type Department Care Team (Late st Contact Info) Description 08/26/2024 9:30 AM EDT Office Visit [facility] [address] [place], [place] [phone] Dallas Menard MD [address] [place], [place] [phone] 11/06/2024 10:15 AM EDT Office Visit [facility] [address] [place] [phone] Dallas Menard MD [address] [place] [address] documented as of this encounter Visit Diagnoses Not on filedocumented in this encounter Additional Health Concerns Assessment Noted Time PHQ-9 Depression Total Score: 13 025 8:43 AM EDT documented as of this encounter Care Teams Weigh Box Tender Relationship Specialty Start Date End Date Dallas Menard MD [address] [place] [address] PCP - General Internal Medicine 08/11/15 documented as of this encounter
--- OUTSIDE RECORDS SUMMARY | 2024-08-14 14:34 | XMS_ITS ---
Author Organization [employer] Address [address] [facility] 7t [place] [address] Care Team Providers Care Cash Van Salesperson Name Role Phone Dallas Menard MD Primary Care Provide r [facility] Complex Status:Outreach In Progress (Enrolling) Start date:08/11/2024 Enrollment reason:ADT Feed Overview ED- Pt went to [facility] ED on 08/08/24. Please outreach for enrollment. Case Team Name Relationship Phone Jeanne Perez (Responsible Staff) Continued Care and Services Coordination
--- OUTSIDE RECORDS SUMMARY | 2024-08-14 14:34 | XMS_ITS | Encounter Summary ---
Author Organization [employer] Address 75 [facility] 7t [place] [address] Care Team Providers Care Body Piercer Name Role Phone Dallas Menard MD Primary Care Provide r Reason for Visit * Reason Onset Date Comments Hospital Follow-up 08/11/2024 Encounter Details Date Type Department Care Team ([facility] st Contact Info) Description 08/11/2024 Telephone [facility] [address] [place] [address] Dallas Menard MD 230 [place], [place] [phone] Hospital Follow-up Social History Tobacco Use Types [...] from pt requesting a HDF appt. Hospital: [facility] Date of admission: 08/08/24 Discharge date: 08/11/24 Diagnosed: Dizziness and Abnormality in the Ecocardiogram. *Send message to [facility] Clinical Care Coordinators Contact pt at [phone] documented in this encounter Plan of Treatment Upcoming Encounters Date Type Department Care Team ([facility] st Contact Info) Description 08/26/2024 9:30 AM EDT Office Visit [facility] [address] [place] [address] Dallas Menard MD [address] [place] [address] 11/06/2024 10:15 AM EDT Office Visit [facility] [address] [place] [address] Dallas Menard MD [address] [place] [address] documented as of this encounter Visit Diagnoses Not on filedocumented in this encounter Additional Health Concerns Assessment Noted Time PHQ-9 Depression Total Score: 13 07/31/ 025 8:43 AM EDT documented as of this encounter Care Teams Body Piercer Relationship Specialty Start Date End Date Dallas Menard MD 230 [place] [address] PCP - General Internal Medicine 08/11/15 documented as of this encounter
--- OUTSIDE RECORDS SUMMARY | 2024-08-14 14:34 | XMS_ITS | Encounter Summary ---
Author Organization [employer] Address 75 [facility] 7t [place] [address] Care Team Providers Care Retouching Operator Name Role Phone Dallas Menard MD Primary Care Provide r Reason for Visit * Reason Comments Care Coordination CHW Chart Review Encounter Details Date Type Department Care Team (Latest Contact Info) Description 08/11/2024 Patient Outreach [facility] 230 [place], [place] [phone] Dallas Menard MD 230 [place], [place] [phone] Care Coordination (CHW Chart Review) Social History [...] visits within the last 12 months include [facility] 08/[place]/24 and [facility] 07/12/24-07/15/24. Patient admitted to [facility] on 08/08/24 for eval following presyn copal episode. Last appointment in PCP office on 07/29/24. Next appointment scheduled for 08/28/24 at9:30am for Televisit with and f/u with PCP on 11/06/24 at 10:15am. documented in this encounter Plan of Treatment Upcoming Encounters Date Type Department Care Team (Late st Contact Info) Description 08/26/2024 9:30 AM EDT Office Visit [facility] [address] [place] [address] Dallas Menard MD 230 [place] [address] 11/06/2024 10:15 AM EDT Office Visit [facility] [address] [place] [address] [place] [address] documented as of this encounter Visit Diagnoses Not on filedocumented in this encounter Additional Health Concerns Assessment Noted Time PHQ-9 Depression Total Score: 13 025 8:43 AM EDT documented as of this encounter Care Teams Retouching Operator Relationship Specialty Start Date End Date Dallas Menard MD [address] [place] [address] PCP - General Internal Medicine 08/11/15 documented as of this encounter
--- OUTSIDE RECORDS SUMMARY | 2024-08-14 14:34 | XMS_ITS | Encounter Summary ---
Author Organization [employer] Address 75 [facility] 7t [place] [address] Care Team Providers Care Heddle Machine Operator Name Role Phone Dallas Menard MD Primary Care Provide r Reason for Visit * Reason Onset Date Comments Med Refill 12/27/2023 Encounter Details Date Type Department Care Team ([facility] st Contact Info) Description 12/27/2023 Telephone [facility] 230 [place], [place] [phone] Dallas Menard MD 230 [place], [place] [phone] Med Refill Social History Tobacco Use Types [...] 100 MG capsule To be sent to: [facility] - [place], [place] - [address] [place] [address] documented in this encounter Plan of Treatment Upcoming Encounters Date Type Department Care Team (Late st Contact Info) Description 08/26/2024 9:30 AM EDT Office Visit [facility] [address] [place] [address] Dallas Menard MD 230 [place] [address] 11/06/2024 10:15 AM EDT Office Visit [facility] [address] [place] [address] Dallas Menard MD [address] [place] [address] documented as of this encounter Visit Diagnoses Not on filedocumented in this encounter Additional Health Concerns Assessment Noted Time PHQ-9 Depression Total Score: 14 024 3:35 PM EDT documented as of this encounter Care Teams Heddle Machine Operator Relationship Specialty Start Date End Date Dallas Menard MD [address] [place] [address] [place] [address] PCP - General Internal Medicine 08/11/15 documented as of this encounter
--- OUTSIDE RECORDS SUMMARY | 2024-08-14 14:34 | XMS_ITS | Encounter Summary ---
Author Organization [employer] Address 75 [facility] 7t [place] [address] Care Team Providers Care Energy Attorney Name Role Phone Dallas Menard MD Primary Care Provide r Reason for Visit * Reason Comments Care Coordination C3CM- chart review Encounter Details Date Type Department Care Team (Latest Contact Info) Description 08/11/2024 Patient Outreach [facility] [address] [place] [address] Dallas Menard MD 230 [place] [address] Care Coordination (C3CM- chart review) Social History [...] visits within the last 12 months include [facility] 08/08/24 and [facility] 07/12/24-07/15/24[facility] Patient admitted to [facility] on 08/08/24 for eval following presyncopal episode. Last appointment in PCP office on 07/29/24. Next appointment scheduled for 08/28/24 at 9:30am for Televisit with BH and f/u with PCP on 11/06/24 at 10:15am. documented in this encounter Plan of Treatment Upcoming Encounters Date Type Department Care Team (Late st Contact Info) Description 08/26/2024 9:30 AM EDT Office Visit [facility] [address] [facility] [place] [address] Dallas Menadr MD [address] [facility] [place] [address] 11/06/2024 10:15 AM EDT Office Visit [facility] [address] [facility] [place] [address] Dallas Menard MD [address] [facility] [place] [address] documented as of this encounter Visit Diagnoses Not on filedocumented in this encounter Additional Health Concerns Assessment Noted Time PHQ-9 Depression Total Score: 13 025 8:43 AM EDT documented as of this encounter Care Teams Energy Attorney Relationship Specialty Start Date End Date Dallas Menard MD [address] [facility] [place] [address] PCP - General Internal Medicine 08/11/15 documented as of this encounter
--- OUTSIDE RECORDS SUMMARY | 2024-08-14 14:34 | XMS_ITS | Encounter Summary ---
Author Organization [employer] Address 75 [facility] 7t [place] [address] Care Team Providers Care Real Estate Analyst Name Role Phone Dallas Menard MD Primary Care Provide r Reason for Visit * Reason Onset Date Comments verbal order 08/13/2024 Encounter Details Date Type Department Care Team ([facility] st Contact Info) Description 08/13/2024 Telephone [facility] 230 [place], [place] [phone] Dallas Menard MD [address] [place] [address] verbal order Social History Tobacco Use Types Packs/Day Years [...] encounter Miscellaneous Notes * Telephone Encounter - Shilpi Morton RN - 08/13/2024 1:44 PM EDT TC placed to pt and LVM to call back the office * Telephone Encounter - Dayna Gannon - 08/13/2024 1:13 PM EDT Tc from [facility] with [facility] Home care needing verbal order for Physical Therapy and Occupational Therapy starting tomorrow 08/14/24. [phone] documented in this encounter Plan of Treatment Upcoming Encounters Date Type Department Care Team (Late st Contact Info) Description 08/26/2024 9:30 AM EDT Office Visit [facility] [address] [place] [address] [phone] Dallas Menard MD 230 [place] [address] 11/06/2024 10:15 AM EDT Office Visit [facility] [address] [place] [address] Dallas Menard MD 230 [place] [address] documented as of this encounter Visit Diagnoses Not on filedocumented in this encounter Additional Health Concerns Assessment Noted Time PHQ-9 Depression Total Score: 13 07/31/ 025 8:43 AM EDT documented as of this encounter Care Teams Real Estate Analyst Relationship Specialty Start Date End Date Dallas Menard MD 230 [place] [address] PCP - General Internal Medicine 08/11/15 documented as of this encounter
--- OUTSIDE RECORDS SUMMARY | 2024-08-14 14:34 | XMS_ITS | Encounter Summary ---
Author Organization [employer] Address 75 [facility] 7t [place] [address] Care Team Providers Care Sawmill Moulder Operator Name Role Phone Dallas Menard MD Primary Care Provide r Reason for Visit * Reason Comments Med Refill Encounter Details Date Type Department Care Team ([facility] st Contact Info) Description 08/10/2023 Refill [facility] 230 [place], [place] [phone] Dallas Menard MD 230 [place], [place] [phone] Chronic abdominal pain Social History Tobacco Use [...] EDT Office Visit [facility] [address] [place] [address] Dallas Menard MD 230 [place] [address] 11/06/2024 10:15 AM EDT Office Visit [facility] [address] [place] [address] Dallas Menard MD [address] [place] [address] documented as of this encounter Visit Diagnoses Diagnosis Chronic abdominal pain Abdominal pain, unspecified site documented in this encounter Additional Health Concerns Assessment Noted Time PHQ-9 Depression Total Score: 23 024 9:40 AM EST documented as of this encounter Care Teams Sawmill Moulder Operator Relationship Specialty Start Date End Date Dallas Menard MD [address] [place] [address] PCP - General Internal Medicine 08/11/15 documented as of this encounter
--- OUTSIDE RECORDS SUMMARY | 2024-08-14 14:34 | XMS_ITS ---
Author Organization [employer] Address 75 [facility] 7t [place] [address] Care Team Providers Care Boilers And Pressure Vessels Inspector Name Role Phone Dallas Menard MD Primary Care Provide r CM Complex Status:Outreach In Progress (Enrolling) Start date:08/11/2024 Enrollment reason:ADT Feed Overview ED- Pt went to [facility] ED on 08/08/24. Case Team Name Relationship Phone Cristy Alston RN Registered Nurse(Responsible S taff) Continued Care and Services Coordination
--- OUTSIDE RECORDS SUMMARY | 2024-08-14 14:34 | XMS_ITS | Encounter Summary ---
Author Organization [employer] Address 75 [facility] 7t [place] [address] Care Team Providers Care Prison Classification Counselor Name Role Phone Dallas Menard MD Primary Care Provide r Reason for Visit * Reason Comments Care Coordination CM/CHW outreach Encounter Details Date Type Department Care Team (Latest Contact Info) Description 08/11/[address] [facility] 230 [place] [address] Dallas Menard MD 230 [place] [address] Care Coordination (CM/CHW outreach) Social History Tobacco [...] this time. CHW LVM introducing herself from [facility] with CHW's name, department and direct contact number requesting call back. Will re-attempt to contact within 5 days. and address not confirmed. documented in this encounter Plan of Treatment Upcoming Encounters Date Type Department Care Team (Late st Contact Info) Description 08/26/2024 9:30 AM EDT Office Visit [facility] [address] [place] [address] Dallas Menard MD 230 [place] [address] 11/06/2024 10:15 AM EDT Office Visit [facility] [address] [place] [address] Dallas Menard MD 230 [place] [address] documented as of this encounter Visit Diagnoses Not on filedocumented in this encounter Additional Health Concerns Assessment Noted Time PHQ-9 Depression Total Score: 13 025 8:43 AM EDT documented as of this encounter Care Teams Prison Classification Counselor Relationship Specialty Start Date End Date Dallas Menard MD 230 [facility] [place] [address] PCP - General Internal Medicine 08/11/15 documented as of this encounter
--- OUTSIDE RECORDS SUMMARY | 2024-08-14 14:34 | XMS_ITS | Encounter Summary ---
Author Organization [employer] Address 75 [facility] 7t [place] [address] Care Team Providers Care Field Cashier Name Role Phone Dallas Menard MD Primary Care Provide r Encounter Details Date Type Department Care Team (Late st Contact Info) Description 06/19/2022 Orders Only [facility] MED & PEDS [address] [place], [place] [phone] Jennifer Lopez LPN Social History Tobacco Use [...] Description 08/26/2024 9:30 AM EDT Office Visit [facility] 230 [place], [place] [phone] Dallas Menard MD 230 [place], [place] [phone] 11/06/2024 10:15 AM EDT Office Visit [facility] 230 [place], [place] [phone] Dallas Menard MD 230 [place] [address] documented as of this encounter Visit Diagnoses Not on filedocumented in this encounter Additional Health Concerns Assessment Noted Time PHQ-9 Depression Total Score: 5 05/30/19 23 11:51 AM EST documented as of this encounter Care Teams Field Cashier Relationship Specialty Start Date End Date Dallas Menard MD 230 [place], [place] [phone] PCP - General Internal Medicine 08/11/15 documented as of this encounter
--- OUTSIDE RECORDS SUMMARY | 2024-08-14 14:34 | XMS_ITS | Encounter Summary ---
Author Organization [employer] Address 75 [facility] 7t [place] [address] Care Team Providers Care Institutional Asset Manager Name Role Phone Dallas Menard MD Primary Care Provide r Reason for Visit * Reason Comments Med Refill Encounter Details Date Type Department Care Team ([facility] st Contact Info) Description 05/09/2024 Refill [facility] 230 [place], [place] [phone] Dallas Menard MD 230 [place], [place] [phone] Chronic abdominal pain Social History Tobacco Use [...] Description 08/26/2024 9:30 AM EDT Office Visit [facility] [address] [place] [address] Dallas Menard MD [address] [place] [address] 11/06/2024 10:15 AM EDT Office Visit [facility] [address] [place] [address] Dallas Menard MD [address] [place] [address] documented as of this encounter Visit Diagnoses Diagnosis Chronic abdominal pain Abdominal pain, unspecified site documented in this encounter Additional Health Concerns Assessment Noted Time PHQ-9 Depression Total Score: 14 024 3:35 PM EDT documented as of this encounter Care Teams Institutional Asset Manager Relationship Specialty Start Date End Date Dallas Menard MD [address] [place] [address] PCP - General Internal Medicine 08/11/15 documented as of this encounter
--- OUTSIDE RECORDS SUMMARY | 2024-08-14 14:34 | XMS_ITS | Encounter Summary ---
Author Organization [employer] Address 75 [facility] 7t [place] [address] Care Team Providers Care Road Mechanic Name Role Phone Dallas Menard MD Primary Care Provide r Reason for Visit * Reason Onset Date Comments Appointment Request 07/31/2022 Encounter Details Date Type Department Care Team ([facility] st Contact Info) Description 07/31/2022 Telephone [facility] 230 [place], [place] [phone] Dallas Menard MD 230 [place], [place] [phone] Appointment Request Social History Tobacco Use Types [...] appt was wanted. Please contact pt at [phone] documented in this encounter Plan of Treatment Upcoming Encounters Date Type Department Care Team (Late st Contact Info) Description 08/26/2024 9:30 AM EDT Office Visit [facility] [address] [place] [address] Dallas Menard MD [facility] [place] [phone] 11/06/2024 10:15 AM EDT Office Visit [facility] [address] [place] [address] Dallas Menard MD [address] [place] [phone] documented as of this encounter Visit Diagnoses Not on filedocumented in this encounter Additional Health Concerns Assessment Noted Time PHQ-9 Depression Total Score: 5 05/30/19 23 11:51 AM EST documented as of this encounter Care Teams Road Mechanic Relationship Specialty Start Date End [place] [address] PCP - General Internal Medicine 08/11/15 documented as of this encounter
--- OUTSIDE RECORDS SUMMARY | 2024-08-14 14:34 | XMS_ITS | Encounter Summary ---
Author Organization [employer] Address 75 [facility] 7t [place] [address] Care Team Providers Care Supervisor Kosher Dietary Service Name Role Phone Dallas Menard MD Primary Care Provide r Encounter Details Date Type Department Care Team (Late st Contact Info) Description 05/22/2022 Orders Only [facility]S [address] [place], [place] [phone] Jennifer Lopez LPN Social History Tobacco Use [...] EDT Office Visit [facility] [address] [place] [address] Dallas Menard MD [address] [place] [address] 11/06/2024 10:15 AM EDT Office Visit [facility] [address] [place] [address] Dallas Menard MD [address] [place] [address] [phone] documented as of this encounter Visit Diagnoses Not on filedocumented in this encounter Care Teams Supervisor Kosher Dietary Service Relationship Specialty Start Date End Date Dallas Menard MD [address] [place] [address] PCP - General Internal Medicine 08/11/15 documented as of this encounter
--- OUTSIDE RECORDS SUMMARY | 2024-08-14 14:34 | XMS_ITS | Encounter Summary ---
Author Organization [employer] Address 75 [facility] 7t [place] [address] Care Team Providers Care Powerhouse Laborer Name Role Phone Dallas Menard MD Primary Care Provide r Reason for Visit * Reason Comments Transition Of Care (Tcm) HDF scheduled Encounter Details Date Type Department Care Team ([facility] st Contact Info) Description 08/11/2024 Patient Outreach [facility]INE 230 [place] [address] Dallas Menard MD 230 [place], [place] [phone] Transition Of Care (Tcm) (HDF scheduled) Social [...] Admission/Visit 08/08/24 Date of Discharge 08/11/24 Facility [facility] Diagnosis Dizziness/ cardiac abnormality Disposition Discharged Home [...] scheduled for 08/26/2024 at 9:30 am with [employer] Insurance verified prior to scheduling. Patient advised [...] Wednesdays, and Walk-In Urgent Care Located in [facility]. Patient provided with after-hours line for [facility], , which offer night time triage service and option to transfer to instructional specialist provider if needed. CC will request Discharge summary to bescanned into chart. documented in this encounter Plan of Treatment Upcoming Encounters Date Type Department Care Team (Late st Contact Info) Description 08/26/2024 9:30 AM EDT Office Visit [facility] MEDICINE 230 [facility], [place] [phone] Dallas Menard MD 230 [place], [place] [phone] 11/06/2024 10:15 AM EDT Office Visit [facility] [address] [place] [address] Dallas Menard MD [address] [place], [place] [phone] documented as of this encounter Visit Diagnoses Not on filedocumented in this encounter Additional Health Concerns Assessment Noted Time PHQ-9 Depression Total Score: 13 07/31/ 025 8:43 AM EDT documented as of this encounter Care Teams Powerhouse Laborer Relationship Specialty Start Date End [place] [address] PCP - General Internal Medicine 08/11/15 documented as of this encounter
--- OUTSIDE RECORDS SUMMARY | 2024-08-14 14:34 | XMS_ITS | Encounter Summary ---
Author Organization [employer] Address [address] [facility] [address] 7t [place] [address] Care Team Providers Care Research Anthropologist Name Role Phone Dallas Menard MD Primary Care Provide r Encounter Details Date Type Department Care Team ([facility] st Contact Info) Description 08/11/2024 Patient Outreach [facility] MED[facility]INE 230 [place], [place] [phone] Dallas Menard MD 230 [place], [place] [phone] Social History Tobacco Use Types Packs/Day Years [...] 9:30 AM EDT Office Visit [facility] MEDICINE [address] [place] [address] Dallas Menard MD 230 [place] [address] 11/06/2024 10:15 AM EDT Office Visit [facility] MED[facility]INE 230 [place] [address] Dallas Menard MD 230 [place] [address] documented as of this encounter Visit Diagnoses Not on filedocumented in this encounter Additional Health Concerns Assessment Noted Time PHQ-9 Depression Total Score: 13 025 8:43 AM EDT documented as of this encounter Care Teams Research Anthropologist Relationship Specialty Start Date End Date Dallas Menard MD 230 [place] [address] PCP - General Internal Medicine 08/11/15 documented as of this encounter
== END 2024-08-14 14:32 | disposition home or self-care (01) ==
PROVIDERS: PCP Internal Medicine; Visit Provider Internal Medicine
DX: I35.0 Nonrheumatic aortic (valve) stenosis (principal); I42.9 Cardiomyopathy, unspecified; I25.10 Atherosclerotic heart disease of native coronary artery without angina pectoris; I10 Essential (primary) hypertension; R55 Syncope and collapse
CPT/HCPCS: 99214

== ENCOUNTER → 2024-08-14 13:19 | Outpatient (BNVA) | payer MEDICAID, SELFPAY | PROVIDERS: PCP Internal Medicine; Visit Provider Internal Medicine | DX: I35.0 Nonrheumatic aortic (valve) stenosis (principal); I42.9 Cardiomyopathy, unspecified; I25.10 Atherosclerotic heart disease of native coronary artery without angina pectoris; I10 Essential (primary) hypertension; R55 Syncope and collapse | CPT/HCPCS: 99212 ==

== ENCOUNTER 2024-08-20 11:09 | Outpatient (AMB) | payer MEDICAID, SELFPAY ==
--- NOTE | 2024-08-20 08:32 | A.OFFVIS_ITS ---
Vital Signs 08/20/24 11:18 Height 5 ft 2 in Weight 141 lb 1.533 oz BMI 25.8 BP 120/68 Blood Pressure Location Rt brachial Position Sitting Pulse 80 Pulse Source Pulse Oximeter Pulse Oximetry (%) 98 Oxygen Delivery Method Room Air Intake Visit Reasons: T2DM Intake Note: Patient presents today for a follow-up on Type 2 Diabetes Mellitus: Last Diabetic eye exam was on: DUE Last Podiatry exam was on: Patient does not see a Operations Lead Most recent HbA1c: 12.3%, 07/30/2024 Random Glucose- 261 mg/dL, Today Bilingual Trainer Required: Yes Bilingual Trainer Language: [employer] Sawyer Services: Bilingual Trainer Offered & Declined Bilingual Trainer Name: Daughter Information Interpreted: non-clinical & clinical Accompanied by: Self / Same As Patient Allergies morphine [MORPHINE] Allergy (Intermediate, Verified 07/30/24 14:04) ITCHY, RASH oxycodone Allergy (Verified 07/30/24 14:04) Hives HPI Comments Details: Patient is a 59-year-old female with DM type 2 diagnosed since 1989 who presents for management of diabetes. Patient was last seen 07/29/24 at which time she did not have a log book to review her numbers. Bolus insulin was conservatively increased. She is now back on a glucose sensor. Her A1C was up to 12.3% 07/30/24 from previous A1C of 9.9% 12/2023. She has had several recent falls and was hospitalized. Her daughter reports that the falls were most likely cardiac related. She is having a cardiac procedure. Dexcom average glucose: 163 14 day continuous glucose monitor report reviewed TIme in ranges: Three % very high (above 250) 33 % high ?(181-250) 63 % in range ?(70-180] 1 % low (69-55) 0 % ?very low (below 54) Interpretation: Readings substantially improved slight low in the a.m. Diabetes medications: Tresiba 100 units Novolog 12 units tid trulicity 1.5mg weekly metformin ER 500 mg am 1000mg pm Past medical history: Diabetes type 2 cardiomyopathy hypertension, hyperlipidemia, cardiomyopathy Micro and macrovascular complications: + CVA, + CAD, neuropathy Exercise: walks with cane Client Services Associate - CDE education: none No Nephropathy: 07/14/2024 eGFR>60 01/2022 less than 5 Has neuropathy: symptoms reported: Operations Lead: yes Has retinopathy: is getting laser treatment for both eyes has upcoming appt this month Ophthalmology evaluation: 07/07 had cataract surgery [facility] Medical History Atherosclerotic cardiovascular disease Cardiomyopathy Type 2 diabetes mellitus with diabetic polyneuropathy History of CVA (cerebrovascular accident) Overweight HLD (hyperlipidemia) DM2 (diabetes mellitus, type 2) Asthma Hypertension Depression Myocardial infarction Surgical History Hx of cholecystectomy Hx of section Family History Father No problems noted. Mother No problems noted. Social History Household Members: Family Housing: Apartment Do you presently have visiting nurse or other home services: No Alcohol intake: never Patient Tobacco Use Status: Former Tobacco user service: No Current occupational status: disabled Physical Exam Vital Signs: Last Vital Signs Pulse 80 08/20/24 11:18 BP 120/68 08/20/24 11:18 Pulse Ox 98 08/20/24 11:18 Oxygen Delivery Method Room Air 08/20/24 11:18 BMI result Body Mass Index 25.8 Const Other: Absence of Cushingoid features. Absence of acromegalic features. Neck exam reveals nl size thyroid about 15 gms. No thyroid nodules palpable. Heart S1 S2, Reg R/R. No M/R G. Skin exam reveals absence of vitiligo or acanthosis nigricans. Visual exam of foot performed. No ulcerations or open lesions. No inter digit maceration or fissuring. No onychomycosis, no callouses. Sensation intact to monofilament exam. Vibratory sensation is normal with 128 Hz tuning fork. Results Reviewed Results Reviewed: Laboratory Last Values Glucose (Clinic) 261 mg/dL (60-115) H 08/20/24 11:20 Assessment & Plan Assessment & Plan (1) DM2 (diabetes mellitus, type 2): Code(s): E11.9 - Type 2 diabetes mellitus without complications Category: Medical Plan: Type 2 diabetic with improving glycemic control. New dosing: Tresiba 96 Novolog breakfast 12 units lunch 12 units supper 16 units The patient had an opportunity to ask questions regarding treatment plan. The patient expressed understanding and agreement with the above treatment plan. The patient is aware they should contact our office by phone for worsening glucose readings or for any low blood sugars which may warrant a change in diabetes medication. Compliance is encouraged with medications and any followup testing/consults which may have been ordered. Patient Instructions: Take 15 carb carbohydrate grams to treat a low sugar (3-4 glucose tablets, half a glass of juice or 15 carbohydrate grams of soft candy such as gummie snacks). Recheck your sugar in 15 minutes and re-treat again with 15 carbohydrate grams if low or still with symptoms. Do not drive a car or operate machinery if you do not know what your blood sugar is, if it is low or in excess of 300. Coding Level of Care Code Est Pt Level 4 (87546) Complex EM visit Add On G2211 Diagnoses DM2 (diabetes mellitus, type 2) E11.9 Time Spent (min) 30 Comment Time spent reviewing labs/provider notes, face to face, chart doc
[2024-08-20 11:18] VITALS: BP 120/68; PULSE 80; O2SAT 98; BMI 25.8
[2024-08-20 11:26] LABS: Glucose, Whole Blood 261 mg/dL (60-115)
--- OUTSIDE RECORDS SUMMARY | 2024-08-20 13:13 | XMS_ITS | Encounter Summary ---
Author Organization [employer] Address 75 [facility] 7t [place] [address] Care Team Providers Care Pediatric Assistant Name Role Phone Dallas Menard MD Primary Care Provide r Encounter Details Date Type Department Care Team (Late st Contact Info) Description 07/11/2022 Orders Only [facility] CHC MED & PEDS [address] [place], [place] [phone] Jennifer Loepz LPN Social History Tobacco Use Types Packs/Day [...] 08/26/2024 9:30 AM EDT Office Visit [facility] MEDICINE [address] [place] [address] [phone] Dallas Menard MD [address] [place] [address] 11/06/2024 10:15 AM EDT Office Visit [facility] [address] [place] [address] Dallas Menard MD [address] [place] [address] documented as of this encounter Visit Diagnoses Not on filedocumented in this encounter Additional Health Concerns Assessment Noted Time PHQ-9 Depression Total Score: 5 05/30/19 23 11:51 AM EST documented as of this encounter Care Teams Pediatric Assistant Relationship Specialty Start Date End Date Dallas Menard MD [address] [place] [address] PCP - General Internal Medicine 08/11/15 documented as of this encounter
--- OUTSIDE RECORDS SUMMARY | 2024-08-20 13:13 | XMS_ITS | Encounter Summary ---
Author Organization [employer] Address [address] [facility] [address] 7t [place] [address] Care Team Providers Care Abe Teacher Name Role Phone Dallas Menard MD Primary Care Provide r Encounter Details Date Type Department Care Team ([facility] st Contact Info) Description 06/19/2024 Refill [facility] [address] [place], [place] [phone] Dallas Menard MD [address] [place], [place] [phone] Hypertension associated with diabetes (CMS/HCC) (CMS/HCC) Social [...] 08/26/2024 9:30 AM EDT Office Visit [facility] [address] [place] [phone] Dallas Menard MD [address] [place] [address] 11/06/2024 10:15 AM EDT Office Visit [facility] [address] [place] [address] Dallas Menard MD [address] [place] [address] documented as of this encounter Visit Diagnoses Diagnosis Hypertension associated with diabetes (CMS/[facility]) Unspecified essential hypertension documented in this encounter Additional Health Concerns Assessment Noted Time PHQ-9 Depression Total Score: 14 024 3:35 PM EDT documented as of this encounter Care Teams Abe Teacher Relationship Specialty Start Date End Date Dallas Menard MD [address] [place] [address] PCP - General Internal Medicine 08/11/15 documented as of this encounter
--- OUTSIDE RECORDS SUMMARY | 2024-08-20 13:13 | XMS_ITS | Encounter Summary ---
Author Organization [employer] Address [address] [facility] [address] [address] 7t [place] [address] Care Team Providers Care Maintenance Carpenter Name Role Phone Dallas Menard MD Primary Care Provide r Encounter Details Date Type Department Care Team ([facility] st Contact Info) Description 06/23/2024 Refill [facility]INE [address] [place], [place] [phone] Dallas Menard MD [address] [place], [place] [phone] Hypertension associated with diabetes (CMS/HCC) (CMS/HCC) Social [...] AM EDT Office Visit [facility] [address] [place] [address] Dallas Menard MD [address] [place] [address] 11/06/2024 10:15 AM EDT Office Visit [facility] [address] [place] [address] Dallas Menard MD [address] [place] [address] documented as of this encounter Visit Diagnoses Diagnosis Hypertension associated with diabetes (CMS/[facility]) Unspecified essential hypertension documented in this encounter Additional Health Concerns Assessment Noted Time PHQ-9 Depression Total Score: 14 024 3:35 PM EDT documented as of this encounter Care Teams Maintenance Carpenter Relationship Specialty Start Date End Date Dallas Menard MD [address] [place] [address] PCP - General Internal Medicine 08/11/15 documented as of this encounter
--- OUTSIDE RECORDS SUMMARY | 2024-08-20 13:13 | XMS_ITS | Encounter Summary ---
Author Organization [employer] Address [address] [facility] 7t [place] [address] Care Team Providers Care Psychiatric Technician Assistant Name Role Phone Dallas Menard MD Primary Care Provide r Encounter Details Date Type Department Care Team (Late Contact Info) Description 10/03/2022 Orders Only [facility] CHC MED & PEDS [address] [place], [place] [phone] Jennifer Lopez LPN Social History Tobacco Use [...] Description 08/26/2024 9:30 AM EDT Office Visit [facility] MEDICINE [address] [place] [address] [phone] Dallas Menard MD [address] [place] [address] 11/06/2024 10:15 AM EDT Office Visit [facility] MEDICINE [address] [place] [address] Dallas Menard MD [address] [place] [address] documented as of this encounter Visit Diagnoses Not on filedocumented in this encounter Additional Health Concerns Assessment Noted Time PHQ-9 Depression Total Score: 5 05/30/19 23 11:51 AM EST documented as of this encounter Care Teams Psychiatric Technician Assistant Relationship Specialty Start Date End Date Dallas Menard MD [address] [place] [address] PCP - General Internal Medicine 08/11/15 documented as of this encounter
--- OUTSIDE RECORDS SUMMARY | 2024-08-20 13:13 | XMS_ITS | Encounter Summary ---
Author Organization [employer] Address 75 [facility] 7t [place] [address] Care Team Providers Care Judicial Registrar Name Role Phone Dallas Menard MD Primary Care Provide r Reason for Visit * Reason Onset Date Comments Nurse Triage 04/21/2024 Encounter Details Date Type Department Care Team ([facility] st Contact Info) Description 04/21/2024 Telephone [facility] [address] [place], [place] [phone] Dallas Menard MD [address] [place] [address] Nurse Triage Social History Tobacco Use Types [...] 04/21/2024 10:05 AM EST Triage call with [facility] [place] [id number] [place]. Pt TEOFILO Diaz takes call for Pt. Pt was seen in [facility] 04/18/24 due to fall and discovered UTI. [...] booking. Pt is advised to come to [facility] if pain isnot effected by tylenol. Protocol [...] ED visit on : Date: 04/18/24 Hospital: [facility] ED Seen for: Fell Symptomatic Yes Pt [...] Office Visit [facility] [address] [place] [address] Dallas Menard MD [address] [place] [address] 11/06/2024 10:15 AM EDT Office Visit [facility] [address] [place] [address] Dallas Menard MD [address] [place] [address] documented as of this encounter Visit Diagnoses Not on filedocumented in this encounter Additional Health Concerns Assessment Noted Time PHQ-9 Depression Total Score: 14 024 3:35 PM EDT documented as of this encounter Care Teams Judicial Registrar Relationship Specialty Start Date End Date Dallas Menard MD [address] [place] [address] PCP - General Internal Medicine 08/11/15 documented as of this encounter
--- OUTSIDE RECORDS SUMMARY | 2024-08-20 13:13 | XMS_ITS | Encounter Summary ---
Author Organization [employer] [facility] Address [address] [facility] 7t [place] [address] Care Team Providers Care Sub Master Name Role Phone Dallas Menard MD Primary Care Provide r Reason for Visit * Reason Comments Med Refill Encounter Details Date Type Department Care Team (Late st Contact Info) Description 07/20/2022 Refill [facility] [address] [place], [place] [phone] Alyce Murphy ANP [address] [place], [place] [phone] Social History Tobacco Use Types Packs/Day Years [...] Office Visit [facility]INE [address] [place], [place] [phone] Dallas Menard MD [address] [place], [place] [phone] 11/06/2024 10:15 AM EDT Office Visit [facility] [address] [place] [address] Dallas Menard MD [address] [place] [address] documented as of this encounter Visit Diagnoses Not on filedocumented in this encounter Additional Health Concerns Assessment Noted Time PHQ-9 Depression Total Score: 5 05/30/19 23 11:51 AM EST documented as of this encounter Care Teams Sub Master Relationship Specialty Start Date End Date Dallas Menard MD [address] [place] [address] PCP - General Internal Medicine 08/11/15 documented as of this encounter
--- OUTSIDE RECORDS SUMMARY | 2024-08-20 13:13 | XMS_ITS | Encounter Summary ---
Author Organization [employer] Address [address] [facility] 7t [place] [address] Care Team Providers Care Pick Pulling Machine Tender Name Role Phone Dallas Menard MD Primary Care Provide r Encounter Details Date Type Department Care Team (Late st Contact Info) Description 08/14/2022 Orders Only [facility] CHC MED & PEDS [address] [place], [place] [phone] Jennifer Lopez LPN Social History Tobacco Use [...] Visit [facility] MEDICINE [address] [place] [address] [phone] Dallas Menard MD [address] [place] [address] 11/06/2024 10:15 AM EDT Office Visit [facility] MED[facility]INE [address] [place] [address] Dallas Menard MD [address] [place] [address] documented as of this encounter Visit Diagnoses Not on filedocumented in this encounter Additional Health Concerns Assessment Noted Time PHQ-9 Depression Total Score: 5 05/30/19 23 11:51 AM EST documented as of this encounter Care Teams Pick Pulling Machine Tender Relationship Specialty Start Date End Date Dallas Menard MD [address] [place] [address] PCP - General Internal Medicine 08/11/15 documented as of this encounter
--- OUTSIDE RECORDS SUMMARY | 2024-08-20 13:13 | XMS_ITS | Encounter Summary ---
Author Organization [employer] Address [address] [facility] 7t [place] [address] Care Team Providers Care Exercise Planner Name Role Phone Dallas Menard MD Primary Care Provide r Reason for Visit * Reason Onset Date Comments Appointment Request 07/10/2024 Encounter Details Date Type Department Care Team ([facility] st Contact Info) Description 07/10/2024 Telephone [facility] [address] [place], [place] [phone] Dallas Menard MD [address] [place] [address] Appointment Request Social History Tobacco Use Types [...] EST Tc from pt requesting appointment , production underwriter advised theres no soon appointments available as if any symptoms production underwriter could assist with triage nurse as pt denied. documented in this encounter Plan of Treatment Upcoming Encounters Date Type Department Care Team (Late st Contact Info) Description 08/26/2024 9:30 AM EDT Office Visit [facility]INE [address] [place] [phone] Dallas Menard MD [address] [place] [address] 11/06/2024 10:15 AM EDT Office Visit [facility] [address] [place] [address] Dallas Menard MD [address] [place] [phone] documented as of this encounter Visit Diagnoses Not on filedocumented in this encounter Additional Health Concerns Assessment Noted Time PHQ-9 Depression Total Score: 14 024 3:35 PM EDT documented as of this encounter Care Teams Exercise Planner Relationship Specialty Start Date End Date Dallas Menard MD [address] [place] [address] PCP - General Internal Medicine 08/11/15 documented as of this encounter
--- OUTSIDE RECORDS SUMMARY | 2024-08-20 13:13 | XMS_ITS | Encounter Summary ---
Author Organization [employer] Address 75 [facility] 7t [place] [address] Care Team Providers Care Amphibious Operations Officer Name Role Phone Dallas Menard MD Primary Care Provide r Encounter Details Date Type Department Care Team (Late Contact Info) Description 10/16/2022 Orders Only [facility] MEDICINE [address] [place] [phone] Christie Strauss LPN Social History Tobacco Use [...] Description 08/26/2024 9:30 AM EDT Office Visit [facility]INE [address] [place] [address] Dallas Menard MD [address] [place] [address] 11/06/2024 10:15 AM EDT Office Visit [facility] [address] [place] [address] Dallas Menard MD [address] [place] [address] documented as of this encounter Visit Diagnoses Not on filedocumented in this encounter Additional Health Concerns Assessment Noted Time PHQ-9 Depression Total Score: 5 05/30/19 23 11:51 AM EST documented as of this encounter Care Teams Amphibious Operations Officer Relationship Specialty Start Date End Date Dallas Menard MD [address] [place] [address] PCP - General Internal Medicine 08/11/15 documented as of this encounter
--- OUTSIDE RECORDS SUMMARY | 2024-08-20 13:13 | XMS_ITS | Encounter Summary ---
Author Organization [employer] Address [address] 7[address] [place] [address] Care Team Providers Care Laborer Salvage Name Role Phone Dallas Menard MD Primary Care Provide r Encounter Details Date Type Department Care Team ([facility] st Contact Info) Description 06/23/2024 Telephone [facility] MEDICINE [address] [place], [place] [phone] Dallas Menard MD [address] [place], [place] [phone] Social History Tobacco Use Types Packs/Day Years [...] Description 08/26/2024 9:30 AM EDT Office Visit [facility] MEDICINE [address] [place] [address] Dallas Menard MD [address] [place] [address] 11/06/2024 10:15 AM EDT Office Visit [facility] MEDICINE [address] [place] [address] Dallas Menard MD [address] [place] [address] documented as of this encounter Visit Diagnoses Not on filedocumented in this encounter Additional Health Concerns Assessment Noted Time PHQ-9 Depression Total Score: 14 024 3:35 PM EDT documented as of this encounter Care Teams Laborer Salvage Relationship Specialty Start Date End Date Dallas Menard MD [address] [place] [address] PCP - General Internal Medicine 08/11/15 documented as of this encounter
--- OUTSIDE RECORDS SUMMARY | 2024-08-20 13:14 | XMS_ITS | Encounter Summary ---
Author Organization [employer] Address 75 [facility] 7t [place] [address] Care Team Providers Care Groundman Name Role Phone Dallas Menard MD Primary Care Provide r Encounter Details Date Type Department Care Team (Late st Contact Info) Description 05/22/2022 Orders Only [facility] MED & PEDS [address] [place], [place] [phone] Jennifer Lopez LPN Social History Tobacco Use [...] 08/26/2024 9:30 AM EDT Office Visit [facility] [address] [place] [address] Dallas Menard MD [address] [place] [address] 11/06/2024 10:15 AM EDT Office Visit [facility] [address] [place] [address] Dallas Menard MD [address] [place] [address] [phone] documented as of this encounter Visit Diagnoses Not on filedocumented in this encounter Care Teams Groundman Relationship Specialty Start Date End Date Dallas Menard MD [address] [place] [address] PCP - General Internal Medicine 08/11/15 documented as of this encounter
--- OUTSIDE RECORDS SUMMARY | 2024-08-20 13:14 | XMS_ITS | Encounter Summary ---
Author Organization [employer] Address 75 [facility] 7t [place] [address] Care Team Providers Care Golf Professional Name Role Phone Dallas Menard MD Primary Care Provide r Reason for Visit * Reason Onset Date Comments Hospital Follow-up 08/11/2024 Encounter Details Date Type Department Care Team ([facility] st Contact Info) Description 08/11/2024 Telephone [facility] MEDICINE [address] [place] [address] Dallas Menard MD [address] [place], [place] [phone] Hospital Follow-up Social History Tobacco Use Types [...] from pt requesting a HDF appt. Hospital: [facility] Date of admission: 08/08/24 Discharge date: 08/11/24 Diagnosed: Dizziness and Abnormality in the Ecocardiogram. *Send message to [facility] Clinical Care Coordinators Contact pt at [phone] documented in this encounter Plan of Treatment Upcoming Encounters Date Type Department Care Team ([facility] st Contact Info) Description 08/26/2024 9:30 AM EDT Office Visit [facility] MEDICINE [address] [place] [phone] Dallas Menard MD [address] [place] [address] 11/06/2024 10:15 AM EDT Office Visit [facility] MEDICINE [address] [place] [address] Dallas Menard MD [address] [place] [address] documented as of this encounter Visit Diagnoses Not on filedocumented in this encounter Additional Health Concerns Assessment Noted Time PHQ-9 Depression Total Score: 13 07/31/ 025 8:43 AM EDT documented as of this encounter Care Teams Golf Professional Relationship Specialty Start Date End Date Dallas Menard MD [address] [place] [address] PCP - General Internal Medicine 08/11/15 documented as of this encounter
--- OUTSIDE RECORDS SUMMARY | 2024-08-20 13:14 | XMS_ITS ---
Author Organization [employer] Address 75 [facility] 7t [place] [address] Care Team Providers Care Biological Engineer Name Role Phone Dallas Menard MD Primary Care Provide r [facility] Complex Status:Closed (Closed) Start date:08/11/2024 Enrollment reason:ADT Feed End date:08/15/2024 Close reason:Declined to Participate Overview ED- Pt went to [facility] on 08/08/24. Please outreach for enrollment. Continued Care and Services Coordination
--- OUTSIDE RECORDS SUMMARY | 2024-08-20 13:14 | XMS_ITS | Encounter Summary ---
Author Organization [employer] Address [address] [facility] [address]t [place] [address] Care Team Providers Care Train Gateman Name Role Phone Dallas Menard MD Primary Care Provide r Reason for Visit * Reason Comments Care Coordination CM/CHW outreach Encounter Details Date Type Department Care Team (Latest Contact Info) Description 08/15/2024 Patient Outreach [facility] [address] [place] [address] Dallas Menard MD [address] [place] [address] Care Coordination (CM/CHW outreach) Social History Tobacco [...] encounter Progress Notes * Jeanne Perez - 08/15/2024 1:27 PM EDT CHW Jeanne Perez called patient to introduce Adult Complex Care Program. Patient's name, and Address was confirmed. Program information was provided to the patient. Patient declined to participate in program. Provided patient with direct contact information for future reference. documented in this encounter Plan of Treatment Upcoming Encounters Date Type Department Care Team ([facility] st Contact Info) Description 08/26/2024 9:30 AM EDT Office Visit [facility] [address] [place] [phone] Dallas Menard MD [address] [place] [address] 11/06/2024 10:15 AM EDT Office Visit [facility] [address] [place], [place] [phone] Dallas Menard MD [address] [place] [address] documented as of this encounter Visit Diagnoses Not on filedocumented in this encounter Additional Health Concerns Assessment Noted Time PHQ-9 Depression Total Score: 13 07/31/ 025 8:43 AM EDT documented as of this encounter Care Teams Train Gateman Relationship Specialty Start Date End Date Dallas Menard MD [address] [place] [address] PCP - General Internal Medicine 08/11/15 documented as of this encounter
--- OUTSIDE RECORDS SUMMARY | 2024-08-20 13:14 | XMS_ITS ---
Author Organization [employer] Address [address] [facility] 7t [place] [address] Care Team Providers Care Speech/Language Therapist Name Role Phone Dallas Menard MD Primary Care Provide r CM Complex Status:Closed (Closed) Start date:08/11/2024 Enrollment reason:ADT Feed End date:08/15/2024 Close reason:Declined to Participate Overview ED- Pt went to [facility] ED on 08/08/24. Continued Care and Services Coordination
--- OUTSIDE RECORDS SUMMARY | 2024-08-20 13:14 | XMS_ITS | Encounter Summary ---
Author Organization [employer] Address [address] [facility] [place] [address] Care Team Providers Care Dialysis Patient Care Technician Name Role Phone Dallas Menard MD Primary Care Provide r Reason for Visit * Reason Comments Med Refill Encounter Details Date Type Department Care Team ([facility] st Contact Info) Description 12/22/2023 Refill [facility] [address] [place], [place] [phone] Dallas Menard MD [address] [place] [address] Chronic abdominal pain Social History Tobacco Use [...] Description 08/26/2024 9:30 AM EDT Office Visit [facility] [address] [place] [address] Dallas Menard MD [address] [place] [phone] 11/06/2024 10:15 AM EDT Office Visit [facility] [address] [place] [address] Dallas Menard MD [address] [place] [phone] documented as of this encounter Visit Diagnoses Diagnosis Chronic abdominal pain Abdominal pain, unspecified site documented in this encounter Additional Health Concerns Assessment Noted Time PHQ-9 Depression Total Score: 14 024 3:35 PM EDT documented as of this encounter Care Teams Dialysis Patient Care Technician Relationship Specialty Start Date End Date Dallas Menard MD [address] [place] [phone] PCP - General Internal Medicine 08/11/15 documented as of this encounter
--- OUTSIDE RECORDS SUMMARY | 2024-08-20 13:14 | XMS_ITS | Encounter Summary ---
Author Organization [employer] Address [address] [facility] 7t [place] [address] Care Team Providers Care Rug Washer Name Role Phone Dallas Menard MD Primary Care Provide r Reason for Visit * Reason Onset Date Comments Med Refill 12/27/2023 Encounter Details Date Type Department Care Team ([facility] st Contact Info) Description 12/27/2023 Telephone [facility] [address] [place], [place] [phone] Dallas Menard MD [address] [place], [place] [phone] Med Refill Social History Tobacco Use Types [...] 100 MG capsule To be sent to: [facility] - [place], [place] - [address] [place] [address] documented in this encounter Plan of Treatment Upcoming Encounters Date Type Department Care Team (Late st Contact Info) Description 08/26/2024 9:30 AM EDT Office Visit [facility] [address] [place] [phone] Dallas Menard MD [address] [place] [address] 11/06/2024 10:15 AM EDT Office Visit [facility] [address] [place] [address] Dallas Menard MD [address] [place] [address] documented as of this encounter Visit Diagnoses Not on filedocumented in this encounter Additional Health Concerns Assessment Noted Time PHQ-9 Depression Total Score: 14 024 3:35 PM EDT documented as of this encounter Care Teams Rug Washer Relationship Specialty Start Date End Date Dallas Menard MD [address] [place] [address] [place] [address] PCP - General Internal Medicine 08/11/15 documented as of this encounter
--- OUTSIDE RECORDS SUMMARY | 2024-08-20 13:14 | XMS_ITS | Encounter Summary ---
Author Organization [employer] Address [address] [facility] [address] [place] [address] Care Team Providers Care Valve Repairer Reclamation Name Role Phone Dallas Menard MD Primary Care Provide r Encounter Details Date Type Department Care Team (Late Contact Info) Description 07/20/2022 Orders Only [facility] [address] [place] [phone] Christie Strauss LPN Social History Tobacco Use [...] EDT Office Visit [facility] [address] [place] [phone] Dallas Menard MD [address] [place] [address] 11/06/2024 10:15 AM EDT Office Visit [facility] [address] [place] [address] Dallas Menard MD [address] [place] [address] documented as of this encounter Visit Diagnoses Not on filedocumented in this encounter Additional Health Concerns Assessment Noted Time PHQ-9 Depression Total Score: 5 05/30/19 23 11:51 AM EST documented as of this encounter Care Teams Valve Repairer Reclamation Relationship Specialty Start Date End Date Dallas Menard MD [address] [place] [address] PCP - General Internal Medicine 08/11/15 documented as of this encounter
--- OUTSIDE RECORDS SUMMARY | 2024-08-20 13:14 | XMS_ITS | Encounter Summary ---
Author Organization [employer] Address [address] [facility] 7[address] [place] [address] Care Team Providers Care Donor Support Technician Name Role Phone Dallas Menard MD Primary Care Provide r Encounter Details Date Type Department Care Team (Late st Contact Info) Description 06/19/2022 Orders Only [facility] [address] [place], [place] [phone] Jennifer Lopez LPN Social History Tobacco Use [...] EDT Office Visit [facility] [address] [place], [place] [phone] Dallas Menard MD [address] [place], [place] [phone] 11/06/2024 10:15 AM EDT Office Visit [facility] [address] [place], [place] [phone] Dallas Menard MD [address] [place] [address] documented as of this encounter Visit Diagnoses Not on filedocumented in this encounter Additional Health Concerns Assessment Noted Time PHQ-9 Depression Total Score: 5 05/30/19 23 11:51 AM EST documented as of this encounter Care Teams Donor Support Technician Relationship Specialty Start Date End Date Dallas Menard MD [address] [place], [place] [phone] PCP - General Internal Medicine 08/11/15 documented as of this encounter
--- OUTSIDE RECORDS SUMMARY | 2024-08-20 13:14 | XMS_ITS | Clinical Summary ---
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 Procedure Note Gena Redding - 07/12/[address] [place] [address] [address] Scan Report Signed Patient: Wendy RiversMR#: [id number] 241 : 1965Acct:[id number] Age/Sex: 58 / FADM Date: 07/11/24 Loc: HO.ED Attending Dr: Ordering Physician: Ricci Cardenas Date of Service: 07/11/24 Procedure(s): CT cervical spine wo IV con Accession Number(s): [id number] cc: Dallas Butler MD; Ricci Cardenas Report Number: [id number]: Total DLP = 296.00 mGy-cm CLINICAL HISTORY: [...] MD in OV> 07/12/2416 DD/ TD/TT: 07/12/2415 Variety Lathe Operator: [facility] External Provider IMG CT PROCEDURES Final Result * CT Head w/o Contrast (07/12/2024 12:15 AM EST) Anatomical Region Laterality Modality Head, Neck Computed Tomogra phy 07/12/2024 12:1 5 AM EST Narrative 07/12/2024 12:16 AM EST ? [facility] ?[address] ?[place] [address] ? CT Scan Report ? Signed ? Patient: Tita,Wendy ?MR#: [id number] ?? 241 ? : 1965 ?Acct:[id number] ? Age/Sex: 58 / F ?ADM Date: 07/11/24 ? Loc: HO.ED ? Attending Dr: ? Ordering Physician: Ricci Cardenas ?? Date of Service: 07/11/24 ?? Procedure(s): CT head/brain wo IV con ?? Accession Number(s): [id number] ? cc: Dallas Butler MD; Ricci Cardenas ? Report Number: ?? [id number]: Total DLP = ??658.00 mGy-cm ? CLINICAL [...] DD/ 0015 ? TD/TT: 07/12/24 0015 ? Variety Lathe Operator: ? Procedure Note Vahid, Image - 07/12/2024 [facility] [address] [facility] [place] [address] CT Scan Report Signed Patient: Wendy RiversMR#: [id number] 241 : 1965Acct:[id number] Age/Sex: 58 / FADM Date: 07/11/24 Loc: HO.ED Attending Dr: Ordering Physician: Ricci Cardenas Date of Service: 07/11/24 Procedure(s): CT head/brain wo IV con Accession Number(s): [id number] cc: Dallas Butler MD; Ricci Cardenas Report Number: [id number]: Total DLP = 658.00 mGy-cm CLINICAL HISTORY: [...] in OV> 07/12/2415 DD/ TD/TT: 07/12/24 001 Variety Lathe Operator: [facility] External Provider IMG CT PROCEDURES Final Result * XR Chest 1 View (07/11/2024 10:16 PM EST) Anatomical Region Laterality Modality Chest Radiographic Radha ging 07/11/2024 10:1 6 PM EST Narrative 07/11/2024 10:18 PM EST ? [facility] ?[address] ?[place] [address] ?XRay Report ? Signed ? Patient: Rivers,Wendy ?MR#: [id number] ?? 241 ? : 1965 ?Acct:[id number] ? Age/Sex: 58 / F ?ADM Date: 02/28/25 ? Loc: HO.ED ? Attending Dr: ? Ordering Physician: Generic ED Physician ?? Date of Service: 07/11/24 ?? Procedure(s): XR chest 1V ?? Accession Number(s): [id number] ? cc: Dallas Butler MD; Generic ED [...] ? DD/ 15 ? TD/TT: 07/11/242215 ? Variety Lathe Operator: ? Procedure Note Donrowenainterpreter, Image - 07/11/2024 [place] [address] XRay Report Signed Patient: Wendy RiversMR#: [id number] 241 : 1965Acct:[id number] Age/Sex: 58 / FADM Date: 07/11/24 Loc: HO.ED Attending Dr: Ordering Physician: Generic ED Physician Date of Service: 07/11/24 Procedure(s): XR chest 1V Accession Number(s): [id number] cc: Dallas Butler MD; Generic ED Physician [...] in OV> 07/11/242216 DD/ 15 TD/TT: 07/11/242215 Variety Lathe Operator: us [facility] External Provider IMG XR PROCEDURES Final Result * (ABNORMAL) Lactic Acid (07/11/2024 9:45 PM EST) Lactic Acid 2.6(HH) 0.5 - 2.0 mmol/L [facility] Comment:Critical value for t est(s): LACTIC ACID Results called toand read back by: ANNE Person calling: [email or web address] Date:07/11/24 Time:2218 07/11/2024 9:45 PM EST 07/11/2024 9:49 PM EST Generic External Data Provider LAB BLOOD ORDERAB LES Final Result Performing Organization Address City/State/[facility] Co de Phone Number [facility] [address] [place] [phone] * (ABNORMAL) Urinalysis, Complete, with Reflex to Culture (07/11/2024 9:43 PM EST) Color Urine Yellow [facility] Appearance Urine Clear [facility] PH 5.5 5.0 - 9.0 [facility] Glucose Urine UA >=1000(A) Negative mg/dL [facility] Urine Blood Trace(A) Negative [facility] Specific Dent - Urine >=1.030(H) 1.005 - 1.025 [facility] Urine Protein 30 (1+)(A) Neg-Trace mg/dL [facility] Urine Ketones >=160 Negative mg/dL [facility] Nitrite Urine Negative Negative [facility] Leukocyte Esterase Urine Negative Negative [facility] RBC Urine 0-2 0 - 2 /HPF [facility] Urine WBC 0-5 0 - 5 /HPF [facility] Urine Squamous Epithelial Cell 0-2 0 - 2 /HPF [facility] Urine Bacteria None Seen None Seen [facility] Hyaline Casts, Urine 0-2 0 - 2 /LPF [facility] 07/11/2024 9:43 PM EST 07/11/2024 9:49 PM EST Narrative [facility] - 07/11/2024 9:59 PM EST Urine, Clean Catch Generic External Data Provider LAB URINE ORDERAB LES Final Result Performing Organization Address [facility]/ZIP Co de Phone Number [facility] [address] [place] [phone] * (ABNORMAL) SARS-CoV-2 RNA, Influenza A/B, and RSV RNA, Ql NAAT (07/11/2024 9:43 PM EST) Pathologist [facility] [place] Influenza A PCR POSITIVE(A) Negative [facility] Influenza B PCR NEGATIVE Negative [facility] Resp Syncy Virus RNA Qual PCR NEGATIVE Negative [facility] SARS COV2 PCR NEGATIVE Negative [facility] Comment:All test results mus t [...] use by authorized laboratories.Testing performed on the G[employer] GeneXpert utilizingreal-time RT-PCR.All SARS CoV2 and positive influenza A/B results arereported to [facility]. 07/11/2024 9:43 PM EST 07/11/2024 9:49 PM EST Generic External Data Provider LAB MICROBIOLOGY - GENERAL ORDERABLES Final Result Performing Organization Address [facility] Co de Phone Number [facility] [address] [place] [phone] * Drug Monitoring, Panel 1, Screen, Urine (07/11/2024 9:43 PM EST) Pathologist [facility] [place] Opiate Screen Urine Not Detected Not Detect [facility] Comment:Opiate cut-off is 30 0 ng/mL.Positive results are unconfirmed and should not be used fornon-medical purposes. Barbiturates, Urine Not Detected Not Detect [facility] Comment:Barbiturate cut-off is 200 ng/mL.Positive results are unconfirmed and should not be used fornon-medical purposes. Phencyclidine Screen Urine Not Detected Not Detect [facility] Comment:Phencyclidine cut-of f is 25 ng/mL.Positive results are unconfirmed and should not be used fornon-medical purposes. Amphetamine Screen Urine Not Detected Not Detect [facility] Comment:Amphetamine cut-off is 1000 ng/mL.Positive results are unconfirmed and should not be used fornon-medical purposes. Benzodiazepines Screen Urine Not Detected Not Detect [facility] Comment:Benzodiazepine cut-o ff is 200 ng/mL.Positive results are unconfirmed and should not be used fornon-medical purposes. Cocaine Screen Urine Not Detected Not Detect [facility] Comment:Cocaine cut-off is 3 00 ng/mL.Positive results are unconfirmed and should not be used fornon-medical purposes. Cannabinoid Screen Urine Not Detected Not Detect [facility] Comment:Cannabinoid cut-off is 50 ng/mL.Positive results are unconfirmed and should not be used fornon-medical purposes. Methadone Screen, Urine Not Detected Not Detect ng/mL [facility] Comment:Methadone cut-off is 300 ng/mL.Positive results are unconfirmed and should not be used fornon-medical purposes. FENTANYL URINE Not Detected Not Detect [facility] Comment:Fentanyl cut-off is 1 ng/mL.Positive results are unconfirmed and should not be used fornon-medical purposes. Oxycodone Urine Screen Not Detected Not Detect ng/mL [facility] Comment:Oxycodone cut-off is 100 ng/mL.Positive results are unconfirmed and should not be used fornon-medical purposes. Buprenorphine Screen Not Detected Not Detect ng/mL [facility] Comment:Buprenorphine cut-of f is 5 ng/mL.Positive results are unconfirmed and should not be used fornon-medical purposes. 07/11/2024 9:43 PM EST 07/11/2024 9:49 PM EST us Generic External Data Provider LAB URINE ORDERAB LES Final Result [facility] [address] [place] [phone] [phone] * (ABNORMAL) CBC auto differential (07/11/2024 9:43 PM EST) White Blood Count 9.4 4.8 - 10.8 X10*3/uL [facility] Red Blood Count 5.53(H) 4.20 - 5.50 X10*6/uL [facility] Hemoglobin 15.1 12.0 - 16.0 g/dl [facility] Hematocrit 44.1 37.0 - 47.0 % [facility] Mean Corpuscular Volume 79.7(L) 80.0 - 98.0 fL [facility] Mean Corpuscular Hemoglobin 27.3 27.0 - 33.0 pg [facility] Mean Corpuscular HGB Conc 34.2 31.0 - 35.0 g/dl [facility] Red Cell Distribution Width 12.5 11.0 - 16.0 % [facility] Platelet Count 271 160 - 400 X10*3/uL [facility] Mean Platelet Volume 10.3 9.4 - 12.3 fL [facility] Neutrophils Percent Auto 89.5(H) 45 - 73 % [facility] Imm Gran Pct Auto 0.3 0.0 - 0.4 % [facility] Lymphocytes Percent Auto 4.9(L) 20 - 40 % [facility] Monocytes Percent Auto 3.9 2 - 11 % [facility] Eosinophils Percent Auto 1.0 0 - 4 % [facility] Basophils Percent Auto 0.4 0 - 2 % [facility] NRBC Pct Auto 0.0 0.0 - 0.2 /100WBC [facility] Neutrophils Absolute Auto 8.4(H) 2.0 - 8.3 x10*3/uL [facility] Imm Gran Abs Auto 0.03 0.00 - 0.03 X10*3/uL [facility] Lymphocytes Absolute Auto 0.5(L) 1.2 - 4.9 X10*3/uL [facility] Monocytes Absolute Auto 0.4 0.1 - 1.2 X10*3/uL [facility] Eosinophils Absolute Auto 0.1 0.0 - 0.4 X10*3/uL [facility] Basophils Absolute Auto 0.0 0.0 - 0.2 X10*3/uL [facility] NRBC Abs Auto 0.000 0.0 - 0.012 X10*3/uL [facility] 07/11/2024 9:43 PM EST 07/11/2024 9:49 PM EST us Generic External Data Provider LAB BLOOD ORDERAB LES Final Result [facility] [address] [place] [phone] * (ABNORMAL) Comprehensive Metabolic Panel (07/11/2024 9:43 PM EST) Sodium 130(L) 135 - 145 mmol/L [facility] Potassium 4.4 3.3 - 5.1 mmol/L [facility] Chloride 95(L) 96 - 108 mmol/L [facility] Carbon Dioxide 19(L) 22 - 29 mmol/L [facility] Anion Gap 20 12 - 20 [facility] Urea Nitrogen (BUN) 12 9 - 16 mg/dL [facility] Creatinine, Serum 0.78 0.5 - 1.4 mg/dL [facility] Creatinine Clr Calc Pharmacy 68.7 [facility] Comment:Provided height and weight: 162.56 cm,63.503 kg.eGFR (calculated from the MDRD study equation) and eCrCl(calculated from the Cockcroft-Gault equation) are based ondifferent parameters and may not yield comparable results.If eCrCl result is absurd, please check patient'sheight/weight. Estimated Glomerular Filt Rate >60 [facility] Comment:Chronic Kidney Disea se: Estimated GFR < 60 mL/min/1.39z3Nxaaci Kidney Disease: Estimated GFR < 15 mL/min/1.73m2 Glucose 497(HH) 60 - 115 mg/dL [facility] Comment:Critical value for t est(s): GLUCOSE Results called to jenny back by: ANNE Person calling:[email or web address] Date: 07/11/24Time:2210 Calcium 9.6 8.4 - 10.2 mg/dL [facility] Bilirubin, Total 1.2(H) 0.0 - 1.0 mg/dL [facility] Aspartate Amino Transferase 16 5 - 31 U/L [facility] Alanine Aminotransferase 14 0 - 31 U/L [facility] Total Protein 8.2(H) 6.5 - 8.0 g/dL [facility] Albumin Level 4.1 3.5 - 5.0 g/dL [facility] Alkaline Phosphatase 105 39 - 117 U/L [facility] 07/11/2024 9:43 PM EST 07/11/2024 9:49 PM EST us Generic External Data Provider LAB BLOOD ORDERAB LES Final Result Performing Organization Address City/[facility]/ZIP Co de Phone Number [facility] [address] [place] [phone] * (ABNORMAL) Glucose, Whole Blood (07/11/2024 9:15 PM EST) Glucose, Whole Blood 495(HH) 60 - 115 mg/dL [facility] Comment:METER #: [id number] 07/11/2024 9:15 PM EST 07/11/2024 9:19 PM EST us Generic External Data Provider LAB BLOOD ORDERAB LES Final Result Performing Organization Address [facility]/ZIP Co de Phone Number [facility] [address] [place] [phone] * BI Mammogram Screening Tomosynthesis Bilateral (03/01/2023 12:51 PM EDT) Anatomical Region Laterality Modality Breast Bilateral Mammography 03/01/2023 12:5 1 PM EDT Narrative 03/15/2023 9:27 AM EDT ? [facility] ? [address] ?[place] [address] ? Mammography Report ? Signed ? Patient: Tita,Wendy ?MR#: [id number] ?? 241 ? : 1965 ?Acct:[id number] ? Age/Sex: 57 / F ?ADM Date: 03/01/23 ? Loc: HO.MAMMO ? Attending Dr: Dallas Butler MD ? Ordering Physician: Dallas Butler MD ?Resu ?? lts: 1Negative ? Date of Service: 03/01/23 ?Follow Up: 1 Year From Orig ?? inal Mammogram ? Procedure(s): MM tomosynthesis screening BI ?? Accession Number(s): [id number] ? cc: Dallas Butler MD ? EXAMINATION: [...] signed by Amish Chicas MD in OV> ?11/02/23 0923 ? DD/ 1251 ? TD/TT: ? Variety Lathe Operator: ? Procedure Note Vahid, Image - 03/20/2023 [place] [facility] [address] [place] [address] Mammography Report Signed Patient: Wendy Rivers#: [id number] 241 : 1965Acct:[id number] Age/Sex: 57 / FADM Date: 03/01/23 Loc: [place] Attending Dr: Dallas Butler MD Ordering Physician: Dallas Butler MDResu lts: 1Negative Date of Service: 03/01/23Follow Up: 1 Year From Orig inal Mammogram Procedure(s): MM tomosynthesis screening BI Accession Number(s): [id number] cc: Dallas Butler MD EXAMINATION: MM SCREENING [...] in OV> 03/15/23 0923 DD/ 1251 TD/TT: Variety Lathe Operator: Dallas Romero MD IMG BI PROCEDURES Mykel andrés Result - Final * (ABNORMAL) Lipid Panel with Reflex to Direct LDL (06/01/2022 9:27 AM EST) Cholesterol, Total 90 <200 mg/dL [facility] HDL Cholesterol 35(L) > OR = 50 mg/dL [facility] Triglycerides 113 <150 mg/dL [facility] LDL Cholesterol 35 mg/dL (calc) [facility] Comment: Reference range: <100 Desirable range <100 mg/dL for primary prevention; ?? <70 mg/dL for patients with CHD or diabetic patients with > or = 2 CHD risk factors. LDL-C is now calculated using the Cam-Castaneda calculation, which is a validated novel method providing better accuracy than the Friedewald equation in the estimation of LDL-C. Cam SS et al. RONNIE. 2013;310(19): 1816-9595 (http://education.Ketto.[facility]/faq/GXX338) Chol/HDLC Ratio 2.6 <5.0 (calc) [facility] [place] [employer] Non-HDL Cholesterol 55 <130 mg/dL (calc) [facility] [place] [employer] Comment: For patients with diabetes plus 1 [...] BLOOD ORDERABLES Final Result Performing Organization Address City/[facility]/ZIP Co de Phone Number [facility] [address] [place] [phone] [facility] [place] [employer] [address] [facility], ([address]) [place] [address] * MICROALBUMIN/CREATININE RATIO, RANDOM URINE (02/08/2022 12:15 PM EDT) Creatinine Urine 57.23 mg/dL [facility] Microalbum/Creati nine Ratio Ur TNP ug/mg cr [facility] Comment: Unable to calculate albumin/creatinine ratio due to low microalbumin or creatinine result. Microalbumin Urine <5.0 mg/L [facility] 02/08/2022 12:1 5 PM EDT Historical Provider HISTORICAL/NON ORDERABLE LABS Final Result [facility] [address] * THINPREP PAP (12/29/2020 9:22 AM EDT) [...] historic and ?? current clinical information. ?? Telegraphic Typewriter Installer : SEE COMMENT [facility] Comment: KF, CT(ASCP) CT screening location: [address] ??[phone] Interpretation/R esult: Negative for intraepithelial lesion or malignancy. [facility] LMP: NONE GIVEN FOUNDATIO N [...] Nancy CRAVEN LAB PATHOLOGY ORDERABLES Final Result [facility] [address] * HPV mRNA E6/E7 (12/29/2020 9:22 AM EDT) HPV nRNA E6/E7 Not Detected Not Detected [facility] Comment: Methodology: Coating Mixer Tender-Mediated Amplification This assay detects E6/E7 viral messenger RNA (mRNA) from 14 high-risk HPV types (16,18,31,33,35,39,45,51,52,56,58,59,66,68). ? The analytical performance characteristics of this assay have been determined by [facility]. The modifications have not been cleared or approved by the FDA. This assay has been validated pursuant to the CLIA regulations and is used for clinical purposes. ?? For additional information, please refer to http://education.[employer].[facility] [facility]/faq/QLW224a1 (This link if provided for information/ educational purposes only.) 12/29/2020 9:22 AM EDT Nancy CRAVEN LAB BLOOD ORDERABLES Daniela champion Result [facility] [address] [place] [address], from Last 3 Months or Most Recently Relevant to Health Maintenance Insurance [employer] C3 Care Teams Patternmaker Plaster Relationship Specialty Start Date End Date Dallas Menrad MD [address] [place] [phone] PCP - General Internal Medicine 08/11/15
--- OUTSIDE RECORDS SUMMARY | 2024-08-20 13:14 | XMS_ITS | Encounter Summary ---
Author Organization [employer] Address [address] [facility] [address]t [place] [address] Care Team Providers Care Rack Worker Name Role Phone Dallas Menard MD Primary Care Provide r Reason for Visit * Reason Comments Med Refill Encounter Details Date Type Department Care Team ([facility] st Contact Info) Description 05/09/2024 Refill [facility] [address] [place], [place] [phone] Dallas Menard MD [address] [place], [place] [phone] Chronic abdominal pain Social History Tobacco Use [...] AM EDT Office Visit [facility] [address] [place] [phone] Dallas Menard MD [address] [place] [phone] 11/06/2024 10:15 AM EDT Office Visit [facility] [address] [place] [phone] Dallas Menard MD [address] [place] [phone] documented as of this encounter Visit Diagnoses Diagnosis Chronic abdominal pain Abdominal pain, unspecified site documented in this encounter Additional Health Concerns Assessment Noted Time PHQ-9 Depression Total Score: 14 024 3:35 PM EDT documented as of this encounter Care Teams Rack Worker Relationship Specialty Start Date End Date Dallas Menard MD [address] [place] [phone] PCP - General Internal Medicine 08/11/15 documented as of this encounter
--- OUTSIDE RECORDS SUMMARY | 2024-08-20 13:14 | XMS_ITS | Encounter Summary ---
Author Organization [employer] Address [address] [facility] [address]t [place] [address] Care Team Providers Care Business Office Director Name Role Phone Dallas Menard MD Primary Care Provide r Encounter Details Date Type Department Care Team (Late st Contact Info) Description 08/20/2024 Orders Only GENERIC EXTERNAL DATA [...] Description 08/26/2024 9:30 AM EDT Office Visit [facility] [address] [place] [phone] Dallas Menard MD [address] [place] [address] 11/06/2024 10:15 AM EDT Office Visit [facility] [address] [place] [address] Dallas Menard MD [address] [place] [address] documented as of this encounter Procedures Procedure Name Priority Date/Time Associated Diagnosis Comments GLUCOSE, WHOLE BLOOD Routine 08/20/2024 11:20 AM EDT documented in this encounter Results * (ABNORMAL) Glucose, Whole Blood (08/20/2024 11:20 AM EDT) Glucose, Whole Blood 261(H) 60 - 115 mg/dL [facility] Comment:METER #: [id number] Testing performed in the Endocrinology Department [address] , [address], [facility]. 08/20/2024 11:2 0 AM EDT 08/20/2024 11:26 AM EDT us Generic External Data Provider LAB BLOOD ORDERAB LES Final Result [facility] [address] [place] [phone] documented in this encounter Visit Diagnoses Not on filedocumented in this encounter Additional Health Concerns Assessment Noted Time PHQ-9 Depression Total Score: 13 07/31/ 025 8:43 AM EDT documented as of this encounter Care Teams Business Office Director Relationship Specialty Start Date End Date Dallas Menard MD [address] [place] [phone] PCP - General Internal Medicine 08/11/15 documented as of this encounter
--- OUTSIDE RECORDS SUMMARY | 2024-08-20 13:14 | XMS_ITS | Encounter Summary ---
Author Organization [employer] Address [address] [facility] 7t [place] [address] Care Team Providers Care Motor Scooter Mechanic Name Role Phone Dallas Menard MD Primary Care Provide r Reason for Visit * Reason Comments Med Refill Encounter Details Date Type Department Care Team ([facility] st Contact Info) Description 08/10/2023 Refill [facility] [address] [place], [place] [phone] Dallas Menard MD [address] [place], [place] [phone] Chronic abdominal pain Social History Tobacco Use [...] EDT Office Visit [facility] [address] [place] [phone] Dallas Menard MD [address] [place] [address] 11/06/2024 10:15 AM EDT Office Visit [facility] [address] [place] [address] Dallas Menard MD [address] [place] [address] documented as of this encounter Visit Diagnoses Diagnosis Chronic abdominal pain Abdominal pain, unspecified site documented in this encounter Additional Health Concerns Assessment Noted Time PHQ-9 Depression Total Score: 23 024 9:40 AM EST documented as of this encounter Care Teams Motor Scooter Mechanic Relationship Specialty Start Date End Date Dallas Menard MD [address] [place] [id number] PCP - General Internal Medicine 08/11/15 documented as of this encounter
--- OUTSIDE RECORDS SUMMARY | 2024-08-20 13:14 | XMS_ITS | Encounter Summary ---
Author Organization [employer] Address 75 [facility] 7t [place] [address] Care Team Providers Care Golf Ball Molder Name Role Phone Dallas Menard MD Primary Care Provide r Reason for Visit * Reason Onset Date Comments Chart Prep 08/18/2024 Encounter Details Date Type Department Care Team ([facility] st Contact Info) Description 08/18/2024 Telephone [facility] [address] [place], [place] [phone] Dallas Menard MD [address] [place], [place] [phone] Chart Prep Social History Tobacco Use Types [...] Telephone Encounter - Latia Leyva [place] - 08/18/2024 3:08 PM EDT Chart Prep Labs: not done Images: not done Vaccines due: Covid Due, Hep B Due, and Shingles in pharmacy Due Referrals: Not Applicable Screenings: Colonoscopy and Eye Exam Overdue care gaps: Glucose, Disability , and Oral Health Chart prep for upcoming appt with Dr.Esparza grier. LB documented in this encounter Plan of Treatment Upcoming Encounters Date Type Department Care Team (Late st Contact Info) Description 08/26/2024 9:30 AM EDT Office Visit [facility] [address] [place] [phone] Dallas Menard MD [address] [place] [address] 11/06/2024 10:15 AM EDT Office Visit [facility] [address] [place] [phone] Dallas Menard MD [address] [place] [address] documented as of this encounter Visit Diagnoses Not on filedocumented in this encounter Additional Health Concerns Assessment Noted Time PHQ-9 Depression Total Score: 13 025 8:43 AM EDT documented as of this encounter Care Teams Golf Ball Molder Relationship Specialty Start Date End Date Dallas Menard MD [address] [place] [address] PCP - General Internal Medicine 08/11/15 documented as of this encounter
--- OUTSIDE RECORDS SUMMARY | 2024-08-20 13:14 | XMS_ITS | Encounter Summary ---
Author Organization [employer] Address 75 [facility] 7t [place] [address] Care Team Providers Care Rn Bone Marrow Transplant Name Role Phone Dallas Menard MD Primary Care Provide r Reason for Visit * Reason Onset Date Comments FYI 08/14/2024 Encounter Details Date Type Department Care Team ([facility] st Contact Info) Description 08/14/[address] [facility] [address] [place], [place] [phone] Dallas Menard MD [address] [place] [address] FYI Social History Tobacco Use Types Packs/Day [...] - 08/14/2024 10:13 AM EDT [facility] calling to inform pt was unable to start services today and will be trying again tomorrow 08/15/24. documented in this encounter Plan of Treatment Upcoming Encounters Date Type Department Care Team (Late st Contact Info) Description 08/26/2024 9:30 AM EDT Office Visit [facility] [address] [place], [place] [phone] Dallas Menard MD [address] [place], [place] [phone] 11/06/2024 10:15 AM EDT Office Visit [facility] [address] [place] [address] Dallas Menard MD [address] [place] [address] documented as of this encounter Visit Diagnoses Not on filedocumented in this encounter Additional Health Concerns Assessment Noted Time PHQ-9 Depression Total Score: 13 025 8:43 AM EDT documented as of this encounter Care Teams Rn Bone Marrow Transplant Relationship Specialty Start Date End Date Dallas Menard MD [address] [place] [address] PCP - General Internal Medicine 08/11/15 documented as of this encounter
--- OUTSIDE RECORDS SUMMARY | 2024-08-20 13:14 | XMS_ITS | Encounter Summary ---
Author Organization [employer] Address 75 [facility] 7t [place] [address] Care Team Providers Care Collection Systems Worker Name Role Phone Dallas Menard MD Primary Care Provide r Reason for Visit * Reason Onset Date Comments Appointment Request 07/31/2022 Encounter Details Date Type Department Care Team ([facility] st Contact Info) Description 07/31/2022 Telephone [facility] [address] [place], [place] [phone] Dallas Menard MD [address] [place], [place] [phone] Appointment Request Social History Tobacco Use Types [...] appt was wanted. Please contact pt at [phone] documented in this encounter Plan of Treatment Upcoming Encounters Date Type Department Care Team (Late st Contact Info) Description 08/26/2024 9:30 AM EDT Office Visit [facility] [address] [place] [address] Dallas Menard MD 230 [facility] [place] [phone] 11/06/2024 10:15 AM EDT Office Visit [facility] [address] [place] [address] Dallas Menard MD [address] [place] [phone] documented as of this encounter Visit Diagnoses Not on filedocumented in this encounter Additional Health Concerns Assessment Noted Time PHQ-9 Depression Total Score: 5 05/30/19 23 11:51 AM EST documented as of this encounter Care Teams Collection Systems Worker Relationship Specialty Start Date End [place] [address] PCP - General Internal Medicine 08/11/15 documented as of this encounter
== END 2024-08-20 12:27 | disposition home or self-care (01) ==
LOC: HO.ENCR 11:10
PROVIDERS: PCP Internal Medicine; Visit Provider Nurse Practitioner Adult Health
DX: E11.9 Type 2 diabetes mellitus without complications (principal)
CPT/HCPCS: 99214

== ENCOUNTER → 2024-08-20 11:09 | Outpatient (BNVA) | payer MEDICAID, SELFPAY | PROVIDERS: PCP Internal Medicine; Visit Provider Nurse Practitioner Adult Health | DX: E11.9 Type 2 diabetes mellitus without complications (principal); Z79.4 Long term (current) use of insulin; Z79.85 Long-term (current) use of injectable non-insulin antidiabetic drugs; Z79.84 Long term (current) use of oral hypoglycemic drugs | CPT/HCPCS: 82947; 99212 ==

== ENCOUNTER 2024-08-27 09:39 | Outpatient (REF) | payer MEDICAID, SELFPAY ==
[2024-08-27 12:33] LABS: Creatinine Urine 44.88 mg/dL; Microalbum/Creatinine Ratio Ur 26.7 ug/mg cr (<30)
== END 2024-08-27 09:40 | disposition home or self-care (01) ==
LOC: HO.HHCL 09:39
PROVIDERS: Visit Provider Internal Medicine
DX: E11.42 Type 2 diabetes mellitus with diabetic polyneuropathy (principal); Z79.4 Long term (current) use of insulin
CPT/HCPCS: 82043; 82570

== ENCOUNTER → 2024-09-23 23:59 | Outpatient (BNV) | payer MEDICAID, SELFPAY | PROVIDERS: PCP Internal Medicine; Visit Provider Internal Medicine Cardiovascular Disease | DX: R07.9 Chest pain, unspecified (principal) | CPT/HCPCS: 93458; 99152 ==

== ENCOUNTER 2024-10-07 11:13 | Outpatient (AMB) | payer MEDICAID, SELFPAY ==
[2024-10-07 11:35] VITALS: BP 120/70; PULSE 70; BMI 27.0
--- NOTE | 2024-10-07 11:35 | A.OFFVIS_ITS ---
Vital Signs 10/07/24 11:35 Height 5 ft 2 in Weight 147 lb 11.355 oz BMI 27.0 BP 120/70 Blood Pressure Location Lt brachial Position Sitting Pulse 70 Intake Visit Reasons: follow up s/p Cardiac cath Intake Note: Follow-up Cardiac cath c/o arm pain since cath Mathematics Faculty Member Required: No Rn Clinical Coordinator: Rn Clinical Coordinator Present Accompanied by: Family/Other Allergies morphine [MORPHINE] Allergy (Intermediate, Verified 07/30/24 14:04) ITCHY, RASH oxycodone Allergy (Verified 07/30/24 14:04) Hives contras dye Allergy (Uncoded 09/23/24 10:31) Flushing Medication List - Last Reconciled 10/07/24 by Tab Jimenes MD acetaminophen 650 mg (2 x 325 mg) PO Q6H PRN albuterol sulfate 2.5 mg (3 mL) inhalation Q4H PRN amlodipine 5 mg PO DAILY aspirin (Adult Low Dose Aspirin) 81 mg PO BEDTIME atorvastatin 80 mg PO DAILY blood-glucose sensor (Transmension Angélica 3 Sensor device) As directed blood-glucose,director of catering sales,cont (FreeStyle Angélica 3 [place]) As directed celecoxib 200 mg PO BID PRN cyanocobalamin (vitamin B-12) 1,000 mcg PO QAM docusate sodium 100 mg PO BEDTIME dulaglutide (Trulicity) 1.5 mg (0.5 mL) subcut QWEEK 28 days gabapentin 100 mg PO BEDTIME insulin aspart U-100 (Novolog FlexPen U-100 Insulin aspart) 12 units (0.12 mL) subcut TID 30 days insulin degludec (Tresiba FlexTouch U-200 insulin) 100 units (0.5 mL) subcut DAILY 30 days isosorbide mononitrate ER 30 mg PO QAM lidocaine 5% (Lidoderm) 1 patch topical DAILY PRN lisinopril 40 mg PO DAILY loratadine 10 mg PO DAILY meclizine 25 mg PO TID PRN metformin ER 1,000 mg PO DAILY@1700 metoprolol tartrate 100 mg PO DAILY mometasone 200 mcg/actuation (Asmanex HFA) 2 puffs inhalation BID omeprazole 40 mg PO DAILY [transport belt As directed] HPI Comments Details: Wendy returns for follow-up. To recall, she was seen around 2018 initially. At that time, she was having chest pains with numerous hospitalizations with elevated troponins at different times. That led to cardiac catheterization but no significant disease. It was felt that she might have microvascular dysfunction. She also had severe LV dysfunction around that time with EF of 10- 15%. After that, she has been seen intermittently by either the nurse practitioner or me. Most recently seen few weeks back. It seems that she had been having lot of dizzy spells and falls. Possible orthostatic hypotension. Was also hospitalized at [facility] for that. Thought to be either orthostatic or neurogenic. There was also concern for aortic stenosis on the echocardiogram. Anyway, following this, she underwent for diagnostic catheterization done it seems that there is no definitive hemodynamically significant aortic stenosis. She still falls down and I am concerned if it is all orthostatic hypotension. We did cut back on the amlodipine dosing last time but it seems that did not help her. She also has uncontrolled diabetes. Random chest pains. [facility] Medical History Atherosclerotic cardiovascular disease Cardiomyopathy Type 2 diabetes mellitus with diabetic polyneuropathy History of CVA (cerebrovascular accident) Overweight HLD (hyperlipidemia) DM2 (diabetes mellitus, type 2) Asthma Hypertension Depression Myocardial infarction Surgical History Hx of cholecystectomy Hx of section Family History Father No problems noted. Mother No problems noted. Social History Household Members: Family Housing: Apartment Do you presently have visiting nurse or other home services: No Alcohol intake: never Patient Tobacco Use Status: Former Tobacco user service: No Current occupational status: disabled Review of Systems Const Denies chills, Denies fatigue, Denies fever(s), Denies frequent falls, Denies weakness, Denies weight gain and Denies weight loss ENT Denies dizziness Card Denies chest pain, Denies leg edema, Denies lightheadedness, Denies palpitations, Denies dyspnea, Denies dyspnea on exertion, Denies orthopnea and Denies other (loss of consciousness) Resp Denies cough, Denies dyspnea and Denies dyspnea on exertion GI Denies hematochezia and Denies change in stool character Musc Denies abnormal gait, Denies muscle weakness, Denies numbness, Denies radiating pain into limb and Denies tingling Neuro Denies abnormal gait, Denies dizziness, Denies frequent falls, Denies numbness, Denies tingling and Denies weakness Endo Denies fatigue and Denies palpitations Physical Exam Vital Signs: Last Vital Signs Pulse 70 10/07/24 11:35 BP 120/70 10/07/24 11:35 BMI result Body Mass Index 27.0 Const General: comfortable and no acute distress Orientation/consciousness: patient oriented x3 HEENT Other: Unremarkable Head: Yes normal to inspection Neck Neck: Yes normal visual inspection Chest Chest palpation & inspection: normal inspection of the chest Resp Auscultation: clear to auscultation bilaterally Cardio Palpation: normal PMI Heart sounds: S1 normal heart sound present, S2 normal heart sound present, no gallops, Murmur heart sound present systolic I/ and at the right sternal border and no rubs GI Palpation (GI): Soft to palpation Back/Spine/Pelvis Other: unremarkable Skin General skin exam: no rashes or lesions noted Neuro General: patient oriented x3 Extrem General: Yes normal to inspection Psych Mental Status: mental status grossly normal Assessment & Plan Assessment & Plan (1) Nonrheumatic aortic (valve) stenosis: Code(s): I35.0 - Nonrheumatic aortic (valve) stenosis Category: Medical Plan: In the [facility] echocardiogram, described to have paradoxical, low-flow, low gradient moderate to severe aortic stenosis. In a prior study from our system in 2022, thought to have rather mild stenosis. In the cardiac catheterization from this month, the aortic stenosis was not thought to be severe. Mean gradient is only 12 mm Hg. We can continue to follow this on echocardiogram. (2) Cardiomyopathy: Code(s): I42.9 - Cardiomyopathy, unspecified Category: Medical Plan: In the recent study at [facility], LVEF is 50-55%. In 2018, she has been as low as 15-20%. Uncertain etiology. She has no overt heart failure symptoms or signs. (3) Atherosclerotic cardiovascular disease: Code(s): I25.10 - Atherosclerotic heart disease of [place] coronary artery without angina pectoris Category: Medical Plan: Cardiac catheterization in 2016 had proximal LAD 30% stenosis. In the recent study, described to have minimal irregularities in circumflex but otherwise normal coronaries. (4) Hypertension: Code(s): I10 - Essential (primary) hypertension Category: Medical Plan: Recently decreased amlodipine dosing. Blood pressure seems normal today. May have to stop it completely. (5) Syncope and collapse: Code(s): R55 - Syncope and collapse Category: Medical Plan: Possible orthostatic. She has uncontrolled diabetes and hence could have autonomic dysfunction related to that. To get tilt-table test. Plan Discussion Notes I discussed the potential use of a tilt table test with the patient to examine her blood pressure differences when moving from lying to sitting positions, as no heart blockages have been identified. The tilt table test can help determine if her dizziness is due to postural blood pressure changes. Current medications will remain unchanged pending results. The patient and family were counseled on this approach during this visit, with anticipation of follow-up based on test findings. Patient was informed and verbally consented to the use of an ambient scribe for clinic note documentation during this visit. Orders: Orders ECG Tilt Table Test Today R55 - Syncope and collapse Patient Instructions: - Continue current medications as prescribed. - Be cautious to avoid falls; rise slowly from sitting or lying positions. - Follow up after the tilt table test for further management. - Contact the office if symptoms worsen or if experiencing new symptoms. Coding Level of Care Code Est Pt Level 4 (18844) Complex EM visit Add On G2211 Diagnoses Nonrheumatic aortic (valve) stenosis I35.0 Cardiomyopathy I42.9 Atherosclerotic cardiovascular disease I25.10 Hypertension I10 Syncope and collapse R55
--- OUTSIDE RECORDS SUMMARY | 2024-10-07 12:01 | XMS_ITS | Encounter Summary ---
Author Organization [employer] Address [address] [facility] [address] [address] Care Team Providers Care Iuss Analyst Name Role Phone Dallas Menard MD Primary Care Provide r Encounter Details Date Type Department Care Team (Late st Contact Info) Description 10/03/2022 Orders Only [facility] [address] [place] [address] Jennifer Lopez LPN Social History Tobacco Use [...] Care Team (Late st Contact Info) Description 11/06/2024 10:15 AM EDT Office Visit [facility] [address] [place], [place] [phone] Dallas Menard MD [address] [place], [place] [phone] documented as of this encounter Visit Diagnoses Not on filedocumented in this encounter Additional Health Concerns Assessment Noted Time PHQ-9 Depression Total Score: 5 05/30/19 23 11:51 AM EST documented as of this encounter Care Teams Iuss Analyst Relationship Specialty Start Date End Date Dallas Menard MD [address] [place] [address] PCP - General Internal Medicine 08/11/15 [facility] 08/15/24 documented as of this encounter
== END 2024-10-07 12:28 | disposition home or self-care (01) ==
LOC: HO.HCS 11:14
PROVIDERS: PCP Internal Medicine; Visit Provider Internal Medicine
DX: I35.0 Nonrheumatic aortic (valve) stenosis (principal); I42.9 Cardiomyopathy, unspecified; I25.10 Atherosclerotic heart disease of native coronary artery without angina pectoris; I10 Essential (primary) hypertension; R55 Syncope and collapse
CPT/HCPCS: 99214

== ENCOUNTER → 2024-10-07 11:13 | Outpatient (BNVA) | payer MEDICAID, SELFPAY | PROVIDERS: PCP Internal Medicine; Visit Provider Internal Medicine | DX: I35.0 Nonrheumatic aortic (valve) stenosis (principal); I42.9 Cardiomyopathy, unspecified; I25.10 Atherosclerotic heart disease of native coronary artery without angina pectoris; I10 Essential (primary) hypertension; R55 Syncope and collapse | CPT/HCPCS: 99212 ==

== ENCOUNTER 2024-11-19 10:49 | Outpatient (AMB) | payer MEDICAID, SELFPAY ==
--- NOTE | 2024-11-19 11:03 | A.OFFVIS_ITS ---
Vital Signs 11/19/24 11:06 Height 5 ft 2 in Weight 145 lb 11.609 oz BMI 26.7 BP 110/62 Blood Pressure Location Lt brachial Position Sitting Pulse 74 Pulse Source Pulse Oximeter Pulse Oximetry (%) 96 Oxygen Delivery Method Room Air Intake Visit Reasons: T2DM Intake Note: Patient present today to follow up on Type 2 Diabetes Mellitus. Last seen by Josy Vergara on 08/20/2024. Last Diabetic Eye exam: Laser Right eye 11/18/2024, Left eye had laser done 2 weeks ago, has f/u appt end of the month. Will be screened for Glaucoma in February 2025. Eye and Lasik. Last Podiatry Visit: Does not see a Corporate Secretary, requesting referral Random Glucose: 433 mg/dl at 11:15 am, 300 mg/dl 12:42 pm HgA1C: 11.2% 11/19/2024 Software Test And Validation Engineer Required: Yes Software Test And Validation Engineer Language: Side Stitching Machine Operator Services: Software Test And Validation Engineer Offered & Declined Accompanied by: Lupillo Diaz Allergies morphine (MORPHINE) Allergy (Intermediate, Verified 11/19/24 11:08) ITCHY, RASH oxycodone Allergy (Verified 11/19/24 11:08) Hives contras dye Allergy (Uncoded 11/19/24 11:08) Flushing Medication List - Last Reconciled 11/19/24 by Trace Fraser MD acetaminophen 650 mg (2 x 325 mg) PO Q6H PRN albuterol sulfate 2.5 mg (3 mL) inhalation Q4H PRN amlodipine 5 mg PO DAILY aspirin (Adult Low Dose Aspirin) 81 mg PO BEDTIME atorvastatin 80 mg PO DAILY blood sugar diagnostic (FreeStyle Lite Strips) As directed blood-glucose meter (FreeStyle Lite Meter kit) As directed blood-glucose sensor (FreeStyle Angélica 3 Sensor device) As directed blood-glucose,environmental health nurse,cont (FreeStyle Angélica 3 [place]) As directed celecoxib 200 mg PO BID PRN cyanocobalamin (vitamin B-12) 1,000 mcg PO QAM docusate sodium 100 mg PO BEDTIME dulaglutide (Trulicity) 1.5 mg (0.5 mL) subcut QWEEK 28 days gabapentin 100 mg PO BEDTIME insulin aspart U-100 (Novolog FlexPen U-100 Insulin aspart) 12 units (0.12 mL) subcut TID 30 days insulin degludec (Tresiba FlexTouch U-200 insulin) 100 units (0.5 mL) subcut DAILY 30 days isosorbide mononitrate ER 30 mg PO QAM lancets (FreeStyle Lancets) As directed lidocaine 5% (Lidoderm) 1 patch topical DAILY PRN lisinopril 40 mg PO DAILY loratadine 10 mg PO DAILY meclizine 25 mg PO TID PRN metformin ER 1,000 mg PO DAILY@1700 metoprolol tartrate 100 mg PO DAILY mometasone 200 mcg/actuation (Asmanex HFA) 2 puffs inhalation BID omeprazole 40 mg PO DAILY [transport belt As directed] HPI Comments Details: Patient is a 59-year-old female with DM type 2 diagnosed since 1989 who presents for management of diabetes. Patient was last seen 08/20/24 by Josy Lara NP Unfortunately, patient has glucometer download did not contain any blood sugars,, Diabetes medications: Tresiba 75 units Novolog 12 units tid trulicity 0.75 mg weekly metformin ER 500 mg am 1000mg pm Past medical history: Diabetes type 2 cardiomyopathy hypertension, hyperlipidemia, cardiomyopathy Micro and macrovascular complications: + CVA, + CAD, neuropathy Exercise: walks with cane Body Hanger - CDE education: none No Nephropathy: 07/14/2024 eGFR>60 01/2022 less than 5 Has neuropathy: symptoms reported: Corporate Secretary: yes Has retinopathy: is getting laser treatment for both eyes saw optho yesterday Ophthalmology evaluation: as above [facility] Medical History (Updated 08/14/24 @ 15:12 by Tab Jimenes MD) Atherosclerotic cardiovascular disease Cardiomyopathy Type 2 diabetes mellitus with diabetic polyneuropathy History of CVA (cerebrovascular accident) Overweight HLD (hyperlipidemia) DM2 (diabetes mellitus, type 2) Asthma Hypertension Depression Myocardial infarction Surgical History (Updated 11/19/24 @ 11:09 by SONYA Rodriguez) Hx of LASIK Hx of cataract surgery Hx of cholecystectomy Hx of section Family History Father No problems noted. Mother No problems noted. Social History Household Members: Family Housing: Apartment Do you presently have visiting nurse or other home services: No Alcohol intake: never Patient Tobacco Use Status: Former Tobacco user service: No Current occupational status: disabled Physical Exam Vital Signs: Last Vital Signs Pulse 74 11/19/24 11:06 BP 110/62 11/19/24 11:06 Pulse Ox 96 11/19/24 11:06 Oxygen Delivery Method Room Air 11/19/24 11:06 BMI result Body Mass Index 26.7 Absence of Cushingoid features. Absence of acromegalic features. Neck exam reve als nl size thyroid about 15 gms. No thyroid nodules palpable. No carotid bruits present. Lungs CTA. Heart S1 S2, Reg R/R. No M/R/ G. Skin exam reveals absence of vitiligo or acanthosis nigricans. Abdominal exam reveals Soft NT/ND with NA BS. No organomegaly present. Neck Other: . Extrem Other: Visual exam of foot performed. No ulcerations or open lesions. No onchomycosis, no callouses.Pulses 2 + distally Sensation intact to monofilament exam. Vibratory sensation sensed is intact with 128 Hz tuning fork Office Meds Humalog U-100 Insulin 100 unit/mL subcutaneous solution Performing Provider: Trace Fraser MD Performing Location[place] [facility] [place] [facility] Administered by: Ade Shi RN on 11/19/24 11:45 Dose Route Admin Location Dispensed Lot Number Expiration Date [facility] Low Pressure Firer 10 unit subcut right upper arm 0.1 mL [id number] 04/24/25 3304-6759-97 E [employer] Total Dispensed Waste 0.1 mL 0 % Comments: Visit interpreted by vandana Diaz. Patient with elevated blood sugar >400. Patient is agreeable to staying for 1 hour and having insulin lispro administered. Dr. Fraser ordered 10 units of insulin, drawn up and visually confirmed with Dr. Fraser prior to administration. Patient given 10 units as above. Advised medical transcription supervisor that this was given at 11:45am for recheck to be at 12:45pm. Patient advised to push fluids, water provided. Results AMB Hemoglobin A1c AMB Hemoglobin A1c 11.2 % Last Edit by SONYA Rodriguez on 11/19/24 11:25 Results Reviewed Results Reviewed: Laboratory Last Values Glucose (Clinic) 300 mg/dL (60-115) H 11/19/24 12:42 Hgb A1c (Clinic) 11.2 % (4.0-6.0) H 11/19/24 11:20 Assessment & Plan Assessment & Plan (1) Type 2 diabetes mellitus with diabetic polyneuropathy: Code(s): E11.42 - Type 2 diabetes mellitus with diabetic polyneuropathy Category: Medical Plan: This is a 59-year-old female with a history of type 2 diabetes being treated with Trulicity, metformin, basal-bolus insulin with poor glycemic control and known microvascular macrovascular complications namely CVA, ret inopathy and neuropathy. Plan is to talk to the patient about reinitiating a sensor namely a Angélica or Dexcom. Can not make any changes to the regimen today because of lack of data. We will have patient see claim analyst and portable track crew chief. We will check lipid profile. 10 units of Humalog was given because of point of care greater than 400 at time of visit. Went over with patient and niece who serves as chef kitchen manager the correlation of poor glycemic control to development of progression of complications. Also made a referral to Podiatry. We will have patient follow up with primary care diabetes team in 4 weeks Orders: Orders Lipid Panel Today E11.42 - Type 2 diabetes mellitus with diabetic polyneuropathy, Z79.4 - skilled nursing (current) use of insulin AMB Insulin Lispro Injection Practice Supplied Today E11.42 - Type 2 diabetes mellitus with diabetic polyneuropathy AMB Hemoglobin A1c Today E11.9 - Type 2 diabetes mellitus without complications Referrals Nutrition/Dietitian Referral E11.42 - Type 2 diabetes mellitus with diabetic polyneuropathy Podiatry Referral E11.42 - Type 2 diabetes mellitus with diabetic polyneuropathy Medications: Refilled blood-glucose,environmental health nurse,cont (FreeStyle Angélica 3 [place]) As directed 1 ea 0RF blood-glucose sensor (FreeStyle Angélica 3 Sensor device) As directed 2 ea 11RF Coding Level of Care Code Est Pt Level 4 (30195) Diagnoses Type 2 diabetes mellitus with diabetic polyneuropathy E11.42
[2024-11-19 11:06] VITALS: BP 110/62; PULSE 74; O2SAT 96; BMI 26.7
[2024-11-19 11:19] LABS: Glucose, Whole Blood 433 mg/dL (60-115)
--- OUTSIDE RECORDS SUMMARY | 2024-11-19 11:54 | XMS_ITS | Encounter Summary ---
Author Organization [employer] Address [address] [facility] [address], [place] [address] Care Team Providers Care Machine Tailer Name Role Phone Dallas Menard MD Primary Care Provide r Encounter Details Date Type Department Care Team (Late st Contact Info) Description 10/03/2022 Orders Only [facility] CHC MED & PEDS [address] [place] [address] Jennifer Lopez LPN Social History Tobacco Use [...] Care Team (Late st Contact Info) Description 02/03/2025 1:30 PM EDT Office Visit [facility] MEDICINE [address] [place], [place] [phone] Dallas Menard MD [address] [place], [place] [phone] documented as of this encounter Visit Diagnoses Not on filedocumented in this encounter Additional Health Concerns Assessment Noted Time PHQ-9 Depression Total Score: 5 05/30/19 23 11:51 AM EST documented as of this encounter Care Teams Machine Tailer Relationship Specialty Start Date End Date Dallas Menard MD [address] [place] [address] PCP - General Internal Medicine 08/11/15 [facility] 08/15/24 documented as of this encounter
--- OUTSIDE RECORDS SUMMARY | 2024-11-19 11:54 | XMS_ITS | Clinical Summary ---
Author Organization [facility] Address [address] [place] [address] Phone Care Team Providers Care Project Manager Name Role Phone Maryanne Bravo MD Primary Care Pro vider Medical History Medical History Date Comments Diabetes mellitus type 2, co ntrolled, with complications (CMS/HCC V24, CMS/HCC V28) DX:Diabetes mellitus type 2, controlled, with complications (HCC) Essential hypertension DX:Essent ial hypertension High cholesterol DX:High cholest tay Arthritis DX:Arthritis Heart disease DX:Heart disease Asthma DX:Asthma Esophageal reflux DX:Esophageal reflux Cerebrovascular disease DX:Cereb rovascular disease Social History Tobacco Use Types Packs/Day Years Used Date Smoking Tobacco: Never Smokeless Tobacco: Never Alcohol Use Standard Drinks/Week Comments Never 0 (1 standard drink = 0.6 oz pur e alcohol) Comments Unknown Sex and Gender Information Value Date Recorded Sex Assigned at Not on file Legal Sex Female 11:45 PM EST Gender Identity Not on file Sexual Orientation Not on file Obstetrics History Plan of Treatment Upcoming Encounters Date Type Department Care Team (Late st Contact Info) Description 11/25/2024 1:45 PM EDT Appointment [facility] Xray [address] [place] [address] Health Maintenance Due Date Last Done Comments Breast Cancer Screening 1966 Diabetes: Annual Foot Exam 1976 Diabetes: Annual Retina Eye Exam 1976 Hepatitis B Vaccines (1 of 3 - 19+ 3-dose series) 1985 Cervical Cancer Screening: Pap Smear 08/20/1987 Zoster Vaccines (1 of 2) 2016 COVID-19 Vaccine ( season) 2024 10/18/2023 Cholesterol Screening (Lipid Panel) 10/07/2024 Colorectal Cancer Screening: Colonoscopy 10/07/2024 Diabetes: Annual Urine Albumin-Creatinine Ratio (uACR) 10/07/2024 HIV Screening 10/07/2024 Hepatitis C Screening 10/07/2024 Social Influencers of Health Screening 10/07/2024 Influenza Vaccine (#1) 2025 , 03/08/2023, 03/10/2021, Additional history exists Diabetes: Blood Sugar Control Test (HGBA1C) 01/29/2025 07/29/2024 Diabetes: Annual GFR (Glomerular Filtration Rate) 07/11/2025 07/11/2024 Hypertension/CHF/CAD Annual BMP Blood Test 07/11/2025 07/11/2024 Depression Screening 07/31/2025 07/31/2024 DTaP,Tdap,and Td Vaccines (5 - Td or Tdap) 08/08/2034 08/08/2024, 02/15/2015, 10/08/2012, Additional history exists Pneumococcal Vaccine: 50+ Years Completed 10/18/2023, 08/07/2012, 08/28/2000 Pneumococcal Vaccine: Pediatrics (0 to 5 Years) and At-Risk Patients (6 to 49 Years) Completed 10/18/2023, 08/07/2012, 08/28/2000 HIB Vaccines Aged Out No longer eligi [...] on patient's age to complete this topic MMR Vaccines Aged Out No longer eligi ble based on patient's age to complete this topic Meningococcal ACWY Vaccine Aged Out N o longer eligible based on patient's age to complete this topic Meningococcal B Vaccine Aged Out No l onger eligible based on patient's age to complete this topic RSV Immunization Patients Under 20 months Aged Out No longer eligible based on patient's age to complete this topic Varicella Vaccines Aged Out No longer eligible based on patient's age to complete this topic Insurance MEDICAID - [place] Care Teams Project Manager Relationship Specialty Start Date End Date Maryanne Bravo MD [address] [facility] [address] [place] [address] PCP - General 10/25/23
[2024-11-19 12:47] LABS: Glucose, Whole Blood 300 mg/dL (60-115)
== END 2024-11-19 12:45 | disposition home or self-care (01) ==
LOC: HO.ENCR 10:50
PROVIDERS: PCP Internal Medicine; Visit Provider Internal Medicine Endocrinology, Diabetes & Metabolism
DX: E11.42 Type 2 diabetes mellitus with diabetic polyneuropathy (principal)
CPT/HCPCS: 99214

== ENCOUNTER → 2024-11-19 10:49 | Outpatient (BNVA) | payer MEDICAID, SELFPAY | PROVIDERS: PCP Internal Medicine; Visit Provider Internal Medicine Endocrinology, Diabetes & Metabolism | DX: E11.42 Type 2 diabetes mellitus with diabetic polyneuropathy (principal); Z79.4 Long term (current) use of insulin | CPT/HCPCS: 82947; 83036; 96372; 99212; J1815 ==

== ENCOUNTER 2024-12-17 15:08 | Outpatient (AMB) | payer MEDICAID, SELFPAY ==
--- NOTE | 2024-12-17 15:13 | MHC.OFFVIS ---
Vital Signs 12/17/24 15:16 Height 5 ft 2 in Weight 145 lb BMI 26.5 Intake Visit Reasons: OV- LT knee OA, last injection 01/07/24 Intake Note: Wendy is a 59 year old female who presents today for a follow up of left knee OA, last injection on 01/07/24. Patient reports she had some relief from this injection. Expresses she is having continued pain in the left knee on the anterior aspect. Utilizes a cane to ambulate. Her nieces states she does not do much activities. She is interested in another injection today. HX of DM. Accompanied by: Niece Allergies morphine (MORPHINE) Allergy (Intermediate, Verified 12/17/24 15:16) ITCHY, RASH oxycodone Allergy (Verified 12/17/24 15:16) Hives contras dye Allergy (Uncoded 12/17/24 15:16) Flushing HPI HPI OV- LT knee OA, last injection 01/07/24: Details: 59-year-old female returns to the office today for a follow-up bilateral knee pain however her right is worse than the left. Her last injection was on 01/07/2024 of her left knee. She tolerates the injections well however can she continues to have falls. Her family member states she has had a thorough workup with her primary and Neurology and Cardiology for her falls and they have come up without any answers. [facility] Medical History Atherosclerotic cardiovascular disease Cardiomyopathy Type 2 diabetes mellitus with diabetic polyneuropathy History of CVA (cerebrovascular accident) Overweight HLD (hyperlipidemia) DM2 (diabetes mellitus, type 2) Asthma Hypertension Depression Myocardial infarction Surgical History Hx of LASIK Hx of cataract surgery Hx of cholecystectomy Hx of section Family History Father No problems noted. Mother No problems noted. Social History Household Members: Family Housing: Apartment Do you presently have visiting nurse or other home services: No Alcohol intake: never Patient Tobacco Use Status: Former Tobacco user service: No Current occupational status: disabled Review of Systems Const All systems reviewed & are unremarkable except as noted in HPI and below Physical Exam Vital Signs: BMI result Body Mass Index 26.5 Extrem Other: Right knee: Skin intact, no erythema or joint effusion. Tenderness along the medial and lateral joint line. Full ROM with crepitus. Negative Cinthia?s. No ligamentous laxity. NVI. Office Procedures AMB Joint Injection/Aspiration Joint Injection/Aspiration Primary Site: right knee Prep: site was prepped using aseptic technique, ethochloride spray was applied and injection warnings given Injected: 40 mg of, DepoMedrol, with 8 mL of, 1% plain lidocaine and in the joint Approach Used: anterolateral Coding - Glenohumeral/Tronchanteric Bursa/Intraarticular Procedure code (CPT) selection complete Assessment & Plan Assessment & Plan (1) Patellofemoral arthritis of right knee: Code(s): M17.11 - Unilateral primary osteoarthritis, right knee Category: Medical Plan We discussed options today, which include steroid injection. The patient did consent to move forward with theright knee injection, which was tolerated well.? I recommended rest, ice and elevation and OTC antiinflammatories prn for discomfort. If symptoms persist over the next 6-8 weeks, they will contact our office, otherwise, prn We also discussed their diabetes and the effect the steroid can have on thier blood glucose levels; therefore, they will continue to monitor these very closely over the next 72 hours Coding Level of Care Code Est Pt Level 3 (90707) Complex EM visit Add On G2211 Diagnoses Patellofemoral arthritis of right knee M17.11 CPT Codes Coding - Joint 7: - Glenohumeral/Tronchanteric Bursa/Intraarticular ([id number])
[2024-12-17 15:16] VITALS: BMI 26.5
--- OUTSIDE RECORDS SUMMARY | 2024-12-17 15:40 | XMS_ITS | Clinical Summary ---
Author Organization [facility] Address [address] [place] [address] Phone Care Team Providers Care Paid Intern Name Role Phone Dallas Butler MD Primary Care Provi blanca Encounters Date Type Department Care Team Description 11/25/2024 1:44 PM EDT - 11/25/2024 11:59 PM EDT Hospital Encounter [facility] Xray [address] [place] [address] Syncope without other cardiovascular symptoms Discharge Disposition: Home or Self Care from Last 3 Months Medical History Medical History Date Comments Diabetes mellitus type 2, co ntrolled, with complications (CMS/HCC V24, CMS/HCC V28) DX:Diabetes mellitus type 2, controlled, with complications ([facility]) Essential hypertension DX:Essent ial hypertension High cholesterol [...] on file Obstetrics History Plan of Treatment Health Maintenance Due Date Last Done Comments Breast Cancer Screening 1966 Diabetes: Annual Foot Exam 1976 Diabetes: Annual Retina Eye Exam 1976 Hepatitis B Vaccines (1 of 3 - 19+ 3-dose series) 1985 Cervical Cancer Screening: Pap Smear 08/20/1987 Zoster Vaccines (1 of 2) 2016 COVID-19 Vaccine ( season) 2024 10/18/2023, 12/09/2021, 09/02/2020 Depression Screening 05/14/2024 Cholesterol Screening (Lipid Panel) 10/07/2024 Colorectal Cancer Screening: Colonoscopy 10/07/2024 Diabetes: Annual Urine Albumin-Creatinine Ratio (uACR) 10/07/2024 HIV Screening 10/07/2024 Hepatitis C Screening 10/07/2024 Social Influencers of Health Screening 10/07/2024 Influenza Vaccine (#1) 2025 , 03/08/2023, 03/10/2021, Additional history exists Diabetes: Blood Sugar Control Test (HGBA1C) 05/16/2025 11/13/2024, 07/29/2024 Diabetes: Annual GFR (Glomerular Filtration Rate) 07/11/2025 07/11/2024 Hypertension/CHF/CAD Annual BMP Blood Test 07/11/2025 07/11/2024 DTaP,Tdap,and Td Vaccines (5 - Td or Tdap) 08/08/2034 08/08/2024, 02/15/2015, 10/08/2012, Additional history exists Pneumococcal Vaccine: 50+ Years Completed 10/18/2023, 08/07/2012, 08/28/2000 HIB Vaccines Aged [...] Procedure Name Priority Date/Time Associated Diagnosis Comments TILT TABLE Routine 11/25/2024 1:55 PM EDT Syncope without other cardiovascular symptoms from Last 3 Months Results * Tilt table (11/25/2024 1:55 PM EDT) Anatomical Region Laterality Modality Radiographic Radha ging Narrative 11/25/2024 2:24 PM EDT Incubator Tender Enterra Feed used for the duration of the procedure. Pt is quite anxious and tremulous today, teary. Tilt Table The patient was brought to lab in fasting state. Patient lied supine for 5 minutes for equilibrium. Baseline ECG showed normal sinus rhythm. Baseline supine minimum BP: 120/56 mmHg Baseline supine minimum HR: 62 bpm Patient tilted to 70 degrees. Tilt maintained for 20 minutes. Minimum BP during tilt: 111/50 mmHg Maximum BP during tilt: 133/57 mmHg Minimum heart rate during tilt: 67 bpm Maximum heart rate during tilt: 74 bpm Rhythm during tilt: normal sinus rhythm Patient experienced a physiologic HR increase with tilt. Conclusion: Negative tilt test. Tab Jimenes MD [facility] PRO CEDURES Final Result from Last 3 Months Insurance MEDICAID - [place] Care Teams Paid Intern Relationship Specialty Start Date End Date Dallas Butler MD [address] [place] [phone] PCP - General Internal Medicine 11/21/24
--- OUTSIDE RECORDS SUMMARY | 2024-12-17 15:40 | XMS_ITS | Encounter Summary ---
Author Organization [employer] Address [address] [facility] [address] [address] Care Team Providers Care Tyre Fitter Name Role Phone Dallas Menard MD Primary Care Provide r Encounter Details Date Type Department Care Team (Late st Contact Info) Description 10/03/2022 Orders Only [facility] CHC MED & PEDS [address] [place] [address] Jennifer Lopez LPN Social History Tobacco Use [...] Description 02/03/2025 1:30 PM EDT Office Visit [facility] MEDICINE [address] [place], [place] [phone] Dallas Menard MD [address] [place], [place] [phone] documented as of this encounter Visit Diagnoses Not on filedocumented in this encounter Additional Health Concerns Assessment Noted Time PHQ-9 Depression Total Score: 5 05/30/19 23 11:51 AM EST documented as of this encounter Care Teams Tyre Fitter Relationship Specialty Start Date End Date Dallas Menard MD [address] [place] [address] PCP - General Internal Medicine 08/11/15 [facility] 08/15/24 documented as of this encounter
== END 2024-12-17 15:36 | disposition home or self-care (01) ==
LOC: HO.HOS 15:08
PROVIDERS: PCP Internal Medicine; Visit Provider Physician Assistant
DX: M17.11 Unilateral primary osteoarthritis, right knee (principal)
CPT/HCPCS: 20610; 99213

== ENCOUNTER → 2024-12-17 15:08 | Outpatient (BNVA) | payer MEDICAID, SELFPAY | PROVIDERS: PCP Internal Medicine; Visit Provider Physician Assistant | DX: M17.11 Unilateral primary osteoarthritis, right knee (principal) | CPT/HCPCS: 20610; 99212; J1010; J2003 ==

== ENCOUNTER 2024-12-25 08:56 | Outpatient (AMB) | payer MEDICAID, SELFPAY ==
--- NOTE | 2024-12-25 09:04 | A.OFFVIS_ITS ---
Vital Signs 12/25/24 09:08 Height 5 ft 2 in Weight 147 lb 0.773 oz BMI 26.9 BP 136/80 Blood Pressure Location Lt brachial Position Sitting Pulse 72 Pulse Source Pulse Oximeter Pulse Oximetry (%) 97 Oxygen Delivery Method Room Air Intake Visit Reasons: f/u Type 2 DM Intake Note: Patient present today to follow up on Type 2 Diabetes Mellitus. Last seen by Josy Vergara on 08/20/2024. Last Diabetic Eye exam: Laser Right eye 11/18/2024 Last Podiatry Visit: Has not seenPodiatry as of right now. Random Glucose: 211 mg/dl HgA1C: 11.2% 11/19/2024 French Binder Required: Yes French Binder Language: Sewer Repairer Services: French Binder Offered & Declined Accompanied by: Niece Allergies morphine (MORPHINE) Allergy (Intermediate, Verified 12/25/24 09:08) ITCHY, RASH oxycodone Allergy (Verified 12/25/24 09:08) Hives contras dye Allergy (Uncoded 12/25/24 09:08) Flushing Medication List - Last Reconciled 12/25/24 by Trace Fraser MD acetaminophen 650 mg (2 x 325 mg) PO Q6H PRN albuterol sulfate 2.5 mg (3 mL) inhalation Q4H PRN amlodipine 5 mg PO DAILY aspirin (Adult Low Dose Aspirin) 81 mg PO BEDTIME atorvastatin 80 mg PO DAILY blood sugar diagnostic (FreeStyle Lite Strips) As directed blood-glucose meter (FreeStyle Lite Meter kit) As directed blood-glucose sensor (FreeStyle Angélica 3 Sensor device) As directed blood-glucose,real estate economist,cont (FreeStyle Angélica 3 [place]) As directed celecoxib 200 mg PO BID PRN cyanocobalamin (vitamin B-12) 1,000 mcg PO QAM docusate sodium 100 mg PO BEDTIME dulaglutide (Trulicity) 1.5 mg (0.5 mL) subcut QWEEK 28 days gabapentin 100 mg PO BEDTIME insulin aspart U-100 (Novolog FlexPen U-100 Insulin aspart) 12 units (0.12 mL) subcut TID 30 days insulin degludec (Tresiba FlexTouch U-200 insulin) 100 units (0.5 mL) subcut DAILY 30 days isosorbide mononitrate ER 30 mg PO QAM lancets (FreeStyle Lancets) As directed lidocaine 5% (Lidoderm) 1 patch topical DAILY PRN lisinopril 40 mg PO DAILY loratadine 10 mg PO DAILY meclizine 25 mg PO TID PRN metformin ER 1,000 mg PO DAILY@1700 metoprolol tartrate 100 mg PO DAILY mometasone 200 mcg/actuation (Asmanex HFA) 2 puffs inhalation BID omeprazole 40 mg PO DAILY [transport belt As directed] HPI Comments Details: Patient is a 59-year-old female with DM type 2 diagnosed since 1989 who presents for management of diabetes. Unfortunately, patient has glucometer download did not contain any blood sugars,, Diabetes medications: Tresiba 100 units Novolog 12 units tid trulicity 1.5 mg weekly metformin ER 500 mg am 1000mg pm Glucometer download shows she is checking her point of cares once a day. Range is [id number] with average glucose of 242. rare reported hypoglycemia Past medical history: Diabetes type 2 cardiomyopathy hypertension, hyperlipidemia, cardiomyopathy Micro and macrovascular complications: + CVA, + CAD, neuropathy Exercise: walks with cane Osteopathic Medicine Teacher - CDE education: none No Nephropathy: 07/14/2024 eGFR>60 01/2022 less than 5 Has neuropathy: symptoms reported: Radiologic Technologist Chief: yes Has retinopathy: is getting laser treatment saw last mo for both eyes saw optho yesterday Ophthalmology evaluation: as above PFSH Medical History Atherosclerotic cardiovascular disease Cardiomyopathy Type 2 diabetes mellitus with diabetic polyneuropathy History of CVA (cerebrovascular accident) Overweight HLD (hyperlipidemia) DM2 (diabetes mellitus, type 2) Asthma Hypertension Depression Myocardial infarction Surgical History Hx of LASIK Hx of cataract surgery Hx of cholecystectomy Hx of section Family History Father No problems noted. Mother No problems noted. Social History Household Members: Family Housing: Apartment Do you presently have visiting nurse or other home services: No Alcohol intake: never Patient Tobacco Use Status: Former Tobacco user service: No Current occupational status: disabled Physical Exam Vital Signs: Last Vital Signs Pulse 72 08/14/25 09:08 BP 136/80 12/25/24 09:08 Pulse Ox 97 12/25/24 09:08 Oxygen Delivery Method Room Air 12/25/24 09:08 BMI result Body Mass Index 26.9 Absence of Cushingoid features. Absence of acromegalic features. Neck exam reveals nl size thyroid about 15 gms. No thyroid nodules palpable. No carotid bruits present. Lungs CTA. Heart S1 S2, Reg R/R. No M/R/ G. Skin exam reveals absence of vitiligo or acanthosis nigricans. Abdominal exam reveals Soft NT/ND with NA BS. No organomegaly present. Neck Other: . Extrem Other: Visual exam of foot performed. No ulcerations or open lesions. No onchomycosis, no callouses.Pulses 2 + distally Sensation intact to monofilament exam. Vibratory sensation sensed is intact with 128 Hz tuning fork Assessment & Plan Assessment & Plan (1) Type 2 diabetes mellitus with diabetic polyneuropathy: Code(s): E11.42 - Type 2 diabetes mellitus with diabetic polyneuropathy Category: Medical Plan: This is a 59-year-old female with a history of type 2 diabetes being treated with Trulicity, metformin, basal-bolus insulin with poor glycemic control and known microvascular macrovascular complications namely CVA, retino paula and neuropathy. Plan is to talk to the patient about reinitiating a sensor namely a Angélica or Dexcom. Can not make any changes to the regimen today because of lack of data. and lead sprinkler. We will check lipid profile. . Went over with patient and niece who serves as filament shaper the correlation of poor glycemic control to development of progression of complications. Also made a referral to Podiatry. Coding Level of Care Code Est Pt Level 4 (62742) Diagnoses Type 2 diabetes mellitus with diabetic polyneuropathy E11.42
[2024-12-25 09:08] VITALS: BP 136/80; PULSE 72; O2SAT 97; BMI 26.9
[2024-12-25 09:19] LABS: Glucose, Whole Blood 211 mg/dL (60-115)
--- OUTSIDE RECORDS SUMMARY | 2024-12-25 09:22 | XMS_ITS | Encounter Summary ---
Author Organization [employer] Address [address] [facility] [address], [place] [address] Care Team Providers Care Hazardous Waste Material Technician Name Role Phone Dallas Menard MD Primary Care Provide r Encounter Details Date Type Department Care Team (Late st Contact Info) Description 10/03/2022 Orders Only [facility] CHC MED & PEDS [address] [place] [address] Jennifer Lopez LPN Social History Tobacco Use [...] Description 02/03/2025 1:30 PM EDT Office Visit [facility] MEDICINE [address] [place], [place] [phone] Dallas Menard MD [address] [place], [place] [phone] documented as of this encounter Visit Diagnoses Not on filedocumented in this encounter Additional Health Concerns Assessment Noted Time PHQ-9 Depression Total Score: 5 05/30/19 23 11:51 AM EST documented as of this encounter Care Teams Hazardous Waste Material Technician Relationship Specialty Start Date End Date Dallas Menard MD [address] [place] [address] PCP - General Internal Medicine 08/11/15 [facility] 08/15/24 documented as of this encounter
--- OUTSIDE RECORDS SUMMARY | 2024-12-25 09:22 | XMS_ITS | Clinical Summary ---
Author Organization [facility] Address [address] [place] [address] Phone Care Team Providers Care Import Export Clerk Name Role Phone Dallas Butler MD Primary Care Provi blanca Encounters Date Type Department Care Team Description 11/25/2024 1:44 PM EDT - 11/25/2024 11:59 PM EDT Hospital Encounter [facility] Xray [address] [place] [address] Syncope without other cardiovascular symptoms Discharge Disposition: Home or Self Care from Last 3 Months Medical History Medical History Date Comments Diabetes mellitus type 2, co ntrolled, with complications (CMS/HCC V24, CMS/HCC V28) DX:Diabetes mellitus type 2, controlled, with complications ([facility]) Essential hypertension DX:Essent ial hypertension High cholesterol [...] Radha ging Narrative 11/25/2024 2:24 PM EDT Ledger Poster Kismet used for the duration of the procedure. [...] Months Insurance MEDICAID - [place] Care Teams Import Export Clerk Relationship Specialty Start Date End Date Dallas Butler MD [address] [place] [phone] PCP - General Internal Medicine 11/21/24
== END 2024-12-25 09:33 | disposition home or self-care (01) ==
LOC: HO.ENCR 09:03
PROVIDERS: PCP Internal Medicine; Visit Provider Internal Medicine Endocrinology, Diabetes & Metabolism
DX: E11.42 Type 2 diabetes mellitus with diabetic polyneuropathy (principal)
CPT/HCPCS: 99214

== ENCOUNTER 2024-12-25 09:36 | Outpatient (REF) | payer MEDICAID, SELFPAY ==
[2024-12-25 11:18] LABS: Cholesterol 166 mg/dL (<200); HDL Cholesterol 44 mg/dL (>40); Triglycerides 141 mg/dL (<150)
== END 2024-12-25 09:37 | disposition home or self-care (01) ==
LOC: HO.10HDL 09:36
PROVIDERS: Visit Provider Internal Medicine Endocrinology, Diabetes & Metabolism
DX: E11.42 Type 2 diabetes mellitus with diabetic polyneuropathy (principal); Z79.4 Long term (current) use of insulin
CPT/HCPCS: 36415; 80061; 82947; 99212

== ENCOUNTER 2025-01-15 10:28 | Outpatient (AMB) | payer MEDICAID, SELFPAY ==
--- NOTE | 2025-01-15 10:37 | MHC.OFFVIS ---
Vital Signs 01/15/25 10:38 Height 5 ft 2 in Weight 145 lb 8.081 oz BMI 26.6 BP 120/60 Blood Pressure Location Lt brachial Position Sitting Pulse 64 Pulse Source Monitor Intake Visit Reasons: 3 mth fu after tilt table Brickmason Helper Required: Yes Brickmason Helper Name: STUART [id number] Allergies morphine (MORPHINE) Allergy (Intermediate, Verified 12/25/24 09:08) ITCHY, RASH oxycodone Allergy (Verified 12/25/24 09:08) Hives contras dye Allergy (Uncoded 12/25/24 09:08) Flushing Medication List - Last Reconciled 01/15/25 by Tab Jimenes MD acetaminophen 650 mg (2 x 325 mg) PO Q6H PRN albuterol sulfate 2.5 mg (3 mL) inhalation Q4H PRN amlodipine 5 mg PO DAILY aspirin (Adult Low Dose Aspirin) 81 mg PO BEDTIME atorvastatin 80 mg PO DAILY blood sugar diagnostic (FreeStyle Lite Strips) As directed blood-glucose meter (FreeStyle Lite Meter kit) As directed blood-glucose sensor (FreeStyle Angélica 3 Sensor device) As directed blood-glucose,ux information architect,cont (FreeStyle Angélica 3 [place]) As directed celecoxib 200 mg PO BID PRN cyanocobalamin (vitamin B-12) 1,000 mcg PO QAM docusate sodium 100 mg PO BEDTIME dulaglutide (Trulicity) 1.5 mg (0.5 mL) subcut QWEEK 28 days gabapentin 100 mg PO BEDTIME insulin aspart U-100 (Novolog FlexPen U-100 Insulin aspart) 12 units (0.12 mL) subcut TID 30 days insulin degludec (Tresiba FlexTouch U-200 insulin) 100 units (0.5 mL) subcut DAILY 30 days isosorbide mononitrate ER 30 mg PO QAM lancets (FreeStyle Lancets) As directed lidocaine 5% (Lidoderm) 1 patch topical DAILY PRN lisinopril 40 mg PO DAILY loratadine 10 mg PO DAILY meclizine 25 mg PO TID PRN metformin ER 1,000 mg PO DAILY@1700 metoprolol tartrate 100 mg PO DAILY mometasone 200 mcg/actuation (Asmanex HFA) 2 puffs inhalation BID omeprazole 40 mg PO DAILY [transport belt As directed] HPI Comments Details: Wendy returns for follow-up. To recall, she was seen around 2018 initially. At that time, she was having chest pains with numerous hospitalizations with elevated troponins at different times. That led to cardiac catheterization but no significant disease. It was felt that she might have microvascular dysfunction. She also had severe LV dysfunction around that time with EF of 10-15%. After that, she has been seen intermittently by either the nurse practitioner or me. It seems that she had been having lot of dizzy spells and falls. Was also hospitalized at [facility] for that. Thought to be either orthostatic or neurogenic. There was also concern for aortic stenosis on the echocardiogram. Following this, she underwent diagnostic catheterization but there was no hemodynamically significant aortic stenosis. With regard to the falls, we had cut back on the amlodipine dosing. We will send her for tilt-table test. Overall, difficult to say how she feels as the answers are somewhat variable. It seems she may still be having some falls. Discussed using chain maker loom control. [facility] Medical History Atherosclerotic cardiovascular disease Cardiomyopathy Type 2 diabetes mellitus with diabetic polyneuropathy History of CVA (cerebrovascular accident) Overweight HLD (hyperlipidemia) DM2 (diabetes mellitus, type 2) Asthma Hypertension Depression Myocardial infarction Surgical History Hx of LASIK Hx of cataract surgery Hx of cholecystectomy Hx of section Family History Father No problems noted. Mother No problems noted. Social History Household Members: Family Housing: Apartment Do you presently have visiting nurse or other home services: No Alcohol intake: never Patient Tobacco Use Status: Former Tobacco user service: No Current occupational status: disabled Review of Systems Const Denies weakness ENT Denies dizziness Card Denies chest pain, Denies chest pain with activity, Denies syncope, Denies rapid heart rate, Denies pedal edema, Denies edema, Denies leg edema, Denies lightheadedness, Denies palpitations, Denies dyspnea, Denies dyspnea on exertion and Denies orthopnea Resp Denies cough, Denies dyspnea and Denies dyspnea on exertion GI Denies hematochezia and Denies change in stool character Musc Denies abnormal gait, Denies muscle cramps, Denies muscle weakness, Denies numbness, Denies radiating pain into limb and Denies tingling Neuro Denies abnormal gait, Denies dizziness, Denies syncope, Denies numbness, Denies tingling and Denies weakness Endo Denies palpitations Physical Exam Vital Signs: Last Vital Signs Pulse 64 01/15/25 10:38 BP 120/60 01/15/25 10:38 BMI result Body Mass Index 26.6 Const General: comfortable and no acute distress Orientation/consciousness: patient oriented x3 HEENT Other: Unremarkable Head: Yes normal to inspection Neck Neck: Yes normal visual inspection Chest Chest palpation & inspection: normal inspection of the chest Resp Auscultation: clear to auscultation bilaterally Cardio Palpation: normal PMI Heart sounds: S1 normal heart sound present, S2 normal heart sound present, no gallops, Murmur heart sound present systolic I/ and at the right sternal border and no rubs GI Palpation (GI): Soft to palpation Back/Spine/Pelvis Other: unremarkable Skin General skin exam: no rashes or lesions noted Neuro General: patient oriented x3 Extrem General: Yes normal to inspection Psych Mental Status: mental status grossly normal Assessment & Plan Assessment & Plan (1) Nonrheumatic aortic (valve) stenosis: Code(s): I35.0 - Nonrheumatic aortic (valve) stenosis Category: Medical Plan: In the [facility] echocardiogram, described to have paradoxical, low-flow, low gradient moderate to severe aortic stenosis. In a prior study from our system in 2022, thought to have rather mild stenosis. In the cardiac catheterization, the aortic stenosis was not thought to be severe. Mean gradient is only 12 mm Hg. We can continue to follow this on echocardiogram. (2) Cardiomyopathy: Code(s): I42.9 - Cardiomyopathy, unspecified Category: Medical Plan: In the recent study at [facility], LVEF is 50-55%. In 2018, she has been as low as 15-20%. Uncertain etiology. She has no overt heart failure symptoms or signs. (3) Atherosclerotic cardiovascular disease: Code(s): I25.10 - Atherosclerotic heart disease of beaver coronary artery without angina pectoris Category: Medical Plan: Cardiac catheterization in 2016 had proximal LAD 30% stenosis. In the recent study, described to have minimal irregularities in circumflex but otherwise normal coronaries. (4) Hypertension: Code(s): I10 - Essential (primary) hypertension Category: Medical Plan: Recently decreased amlodipine dosing. Blood pressure seems stable. (5) Syncope and collapse: Code(s): R55 - Syncope and collapse Category: Medical Plan: Tilt-table testing was unremarkable. Not clear if it is just related to uncontrolled diabetes and autonomic dysfunction. She needs to take as much fall precautions as possible. Plan Discussion Notes During the visit, we discussed the management of the patient's hypertension and the recent adjustment of her amlodipine dosage to address dizziness. We also reviewed her diabetes management, emphasizing the importance of blood glucose monitoring and adherence to her treatment plan. The potential impact of peripheral neuropathy on her balance was highlighted, and the use of a cane or support was recommended to prevent falls. Patient was informed and verbally consented to the use of an ambient scribe for clinic note documentation during this visit. Patient Instructions: - Continue taking medications as prescribed. - Monitor blood glucose levels regularly. - Use a cane or support when walking to prevent falls. - Follow up in six months for reassessment. Coding Level of Care Code Est Pt Level 4 (60716) Complex EM visit Add On G2211 Diagnoses Nonrheumatic aortic (valve) stenosis I35.0 Cardiomyopathy I42.9 Atherosclerotic cardiovascular disease I25.10 Hypertension I10 Syncope and collapse R55
[2025-01-15 10:38] VITALS: BP 120/60; PULSE 64; BMI 26.6
--- OUTSIDE RECORDS SUMMARY | 2025-01-15 11:49 | XMS_ITS | Encounter Summary ---
Author Organization [employer] Address [address] [place] [address] Care Team Providers Care Customer Advisor Specialist Name Role Phone Dallas Menard MD Primary Care Provide r Reason for Visit * Reason Onset Date Comments Appointment Request 07/31/2022 Encounter Details Date Type Department Care Team ([facility] st Contact Info) Description 07/31/2022 Telephone [facility] MEDICINE [address] [place] [address] Dallas Menard MD [address] [place] [address] Appointment Request Social History Tobacco Use Types [...] appt was wanted. Please contact pt at [phone] documented in this encounter Plan of Treatment Upcoming Encounters Date Type Department Care Team (Late st Contact Info) Description 02/03/2025 1:30 PM EDT Office Visit [facility] [address] [facility] [place] [address] Dallas Menard MD [address] [place] [address] documented as of this encounter Visit Diagnoses Not on filedocumented in this encounter Additional Health Concerns Assessment Noted Time PHQ-9 Depression Total Score: 5 05/30/19 23 11:51 AM EST documented as of this encounter Care Teams Customer Advisor Specialist Relationship Specialty Start Date End Date Dallas Menard MD [address] [place] [address] PCP - General Internal Medicine 08/11/15 [facility] 08/15/24 documented as of this encounter
--- OUTSIDE RECORDS SUMMARY | 2025-01-15 11:49 | XMS_ITS | Encounter Summary ---
Author Organization [employer] Address [address] [facility] [address] [place] [address] Care Team Providers Care Vice President Consulting Services Name Role Phone Dallas Menard MD Primary Care Provide r Reason for Visit * Reason Comments Med Refill Encounter Details Date Type Department Care Team (Late st Contact Info) Description 12/22/2023 Refill [facility] [address] [place], [place] [phone] Dallas Menard MD [address] [place] [address] Chronic abdominal pain Social History Tobacco Use [...] housing situation today? I have delonte yudith 07/19/[address] you li [...] 1:30 PM EDT Office Visit [facility] MEDICINE [address] [place] [address] Dallas Menard MD [address] [place] [address] documented as of this encounter Visit Diagnoses Diagnosis Chronic abdominal pain Abdominal pain, unspecified site documented in this encounter Additional Health Concerns Assessment Noted Time PHQ-9 Depression Total Score: 14 024 3:35 PM EDT documented as of this encounter Care Teams Vice President Consulting Services Relationship Specialty Start Date End Date Dallas Menard MD [address] [place] [address] PCP - General Internal Medicine 08/11/15 [facility] 08/15/24 documented as of this encounter
--- OUTSIDE RECORDS SUMMARY | 2025-01-15 11:49 | XMS_ITS | Encounter Summary ---
Author Organization [employer] Address [address] [facility] [address], [place] [address] Care Team Providers Care Bat Boy/Girl Name Role Phone Dallas Menard MD Primary Care Provide r Reason for Visit * Reason Comments Med Refill Encounter Details Date Type Department Care Team (Late st Contact Info) Description 08/10/2023 Refill [facility] MEDICINE [address] [place] [address] Dallas Menard MD [address] [place], [place] [phone] Chronic abdominal pain Social History Tobacco Use [...] Description 02/03/2025 1:30 PM EDT Office Visit [facility] MEDICINE [address] [place] [address] Dallas Menard MD [address] [place] [address] documented as of this encounter Visit Diagnoses Diagnosis Chronic abdominal pain Abdominal pain, unspecified site documented in this encounter Additional Health Concerns Assessment Noted Time PHQ-9 Depression Total Score: 23 024 9:40 AM EST documented as of this encounter Care Teams Bat Boy/Girl Relationship Specialty Start Date End Date Dallas Menard MD [address] [place] [address] PCP - General Internal Medicine 08/11/15 [facility] 08/15/24 documented as of this encounter
--- OUTSIDE RECORDS SUMMARY | 2025-01-15 11:49 | XMS_ITS | Encounter Summary ---
Author Organization [employer] Address [address] [facility] [address] [place] [address] Care Team Providers Care Department Secretary Name Role Phone Dallas Menard MD Primary Care Provide r Reason for Visit * Reason Comments Med Refill Encounter Details Date Type Department Care Team (Late st Contact Info) Description 05/09/2024 Refill [facility] MEDICINE [address] [place] [address] Dallas Menard MD [address] [place], [place] [phone] Chronic abdominal pain Social History Tobacco Use [...] Description 02/03/2025 1:30 PM EDT Office Visit [facility] MEDICINE [address] [place] [address] Dallas Menard MD [address] [place] [address] documented as of this encounter Visit Diagnoses Diagnosis Chronic abdominal pain Abdominal pain, unspecified site documented in this encounter Additional Health Concerns Assessment Noted Time PHQ-9 Depression Total Score: 14 024 3:35 PM EDT documented as of this encounter Care Teams Department Secretary Relationship Specialty Start Date End Date Dallas Menard MD [address] [place] [address] PCP - General Internal Medicine 08/11/15 [facility] 08/15/24 documented as of this encounter
--- OUTSIDE RECORDS SUMMARY | 2025-01-15 11:49 | XMS_ITS | Encounter Summary ---
Author Organization [employer] Address [address] [facility] 7 [place] [address] Care Team Providers Care Curber Name Role Phone Dallas Menard MD Primary Care Provide r Reason for Visit * Reason Comments Med Refill Encounter Details Date Type Department Care Team (Late st Contact Info) Description 08/21/2024 Refill [facility] MEDICINE [address] [place] [address] Dallas Menard MD [address] [place], [place] [phone] Chronic abdominal pain Social History Tobacco Use [...] Description 02/03/2025 1:30 PM EDT Office Visit [facility] MEDICINE [address] [place] [address] Dallas Menard MD [address] [place] [address] documented as of this encounter Visit Diagnoses Diagnosis Chronic abdominal pain Abdominal pain, unspecified site documented in this encounter Additional Health Concerns Assessment Noted Time PHQ-9 Depression Total Score: 13 025 8:43 AM EDT documented as of this encounter Care Teams Curber Relationship Specialty Start Date End Date Dallas Menard MD [address] [place] [address] PCP - General Internal Medicine 08/11/15 [facility] 08/15/24 documented as of this encounter
--- OUTSIDE RECORDS SUMMARY | 2025-01-15 11:49 | XMS_ITS | Encounter Summary ---
Author Organization [employer] Address [address] [facility] [address] [address] Care Team Providers Care Nut Feeder Name Role Phone Dallas Menard MD Primary Care Provide r Reason for Visit * Reason Onset Date Comments Appointment Request 07/10/2024 Encounter Details Date Type Department Care Team ([facility] st Contact Info) Description 07/10/2024 Telephone [facility] MEDICINE [address] [place] [address] Dallas Menard MD [address] [place], [place] [phone] Appointment Request Social History Tobacco Use Types [...] EST Tc from pt requesting appointment , com writer advised theres no soon appointments available as if any symptoms com writer could assist with triage nurse as pt denied. documented in this encounter Plan of Treatment Upcoming Encounters Date Type Department Care Team (Late st Contact Info) Description 02/03/2025 1:30 PM EDT Office Visit [facility] MEDICINE [address] [place] [address] Dallas Menard MD [address] [place] [address] documented as of this encounter Visit Diagnoses Not on filedocumented in this encounter Additional Health Concerns Assessment Noted Time PHQ-9 Depression Total Score: 14 024 3:35 PM EDT documented as of this encounter Care Teams Nut Feeder Relationship Specialty Start Date End Date Dallas Menard MD [address] [place] [address] PCP - General Internal Medicine 08/11/15 [facility] 08/15/24 documented as of this encounter
--- OUTSIDE RECORDS SUMMARY | 2025-01-15 11:49 | XMS_ITS | Encounter Summary ---
Author Organization [employer] Address [address] [facility] [address] [address] Care Team Providers Care Crankshaft Balancer Name Role Phone Dallas Menard MD Primary Care Provide r Encounter Details Date Type Department Care Team (Late st Contact Info) Description 10/16/2022 Orders Only [facility] MEDICINE [address] [place] [address] [phone] Christie Strauss LPN Social History Tobacco Use [...] Description 02/03/2025 1:30 PM EDT Office Visit [facility] MEDICINE [address] [place], [place] [phone] Dallas Menard MD [address] [place], [place] [phone] documented as of this encounter Visit Diagnoses Not on filedocumented in this encounter Additional Health Concerns Assessment Noted Time PHQ-9 Depression Total Score: 5 05/30/19 23 11:51 AM EST documented as of this encounter Care Teams Crankshaft Balancer Relationship Specialty Start Date End Date Dallas Menard MD [address] [place] [address] PCP - General Internal Medicine 08/11/15 [facility] 08/15/24 documented as of this encounter
--- OUTSIDE RECORDS SUMMARY | 2025-01-15 11:49 | XMS_ITS | Encounter Summary ---
Author Organization [employer] Address [address] [facility] [address], [place] [address] Care Team Providers Care Lathe Puller Name Role Phone Dallas Menard MD Primary Care Provide r Encounter Details Date Type Department Care Team (Late st Contact Info) Description 07/20/2022 Orders Only [facility] MEDICINE [address] [place] [phone] Christie Strauss LPN Social History Tobacco Use [...] Visit [facility] MEDICINE [address] [place], [place] [phone] Dallas Menard MD [address] [place], [place] [phone] documented as of this encounter Visit Diagnoses Not on filedocumented in this encounter Additional Health Concerns Assessment Noted Time PHQ-9 Depression Total Score: 5 05/30/19 23 11:51 AM EST documented as of this encounter Care Teams Lathe Puller Relationship Specialty Start Date End Date Dallas Menard MD [address] [place] [id number] PCP - General Internal Medicine 08/11/15 [facility] 08/15/24 documented as of this encounter
--- OUTSIDE RECORDS SUMMARY | 2025-01-15 11:49 | XMS_ITS | Encounter Summary ---
Author Organization [employer] Address [address] [facility] [address], [place] [address] Care Team Providers Care Manager Client Service Name Role Phone Dallas Menard MD Primary Care Provide r Reason for Visit * Reason Onset Date Comments Hospital Follow-up 08/11/2024 Encounter Details Date Type Department Care Team ([facility] st Contact Info) Description 08/11/2024 Telephone [facility] MEDICINE [address] [place] [address] Dallas Menard MD [address] [place], [place] [phone] Hospital Follow-up Social History Tobacco Use Types [...] from pt requesting a HDF appt. Hospital: [facility] Date of admission: 08/08/24 Discharge date: 08/11/24 Diagnosed: Dizziness and Abnormality in the Ecocardiogram. *Send message to [facility] Coordinators Contact pt at [phone] documented in this encounter Plan of Treatment Upcoming Encounters Date Type Department Care Team ([facility] st Contact Info) Description 02/03/2025 1:30 PM EDT Office Visit [facility] MEDICINE [address] [place] [address] Dallas Menard MD [address] [place] [address] documented as of this encounter Visit Diagnoses Not on filedocumented in this encounter Additional Health Concerns Assessment Noted Time PHQ-9 Depression Total Score: 13 025 8:43 AM EDT documented as of this encounter Care Teams Manager Client Service Relationship Specialty Start Date End Date Dallas Menard MD [address] [place] [address] PCP - General Internal Medicine 08/11/15 [facility] 08/15/24 documented as of this encounter
--- OUTSIDE RECORDS SUMMARY | 2025-01-15 11:49 | XMS_ITS | Clinical Summary ---
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 ([facility]) ALBUMIN, RANDOM URINE W/CREATININE Routine 08/27/2024 9:42 AM EDT Type 2 diabetes mellitus with diabetic polyneuropathy, with long-term current use of insulin ([facility]) BI MAMMOGRAM SCREENING TOMOSYNTHESIS BILATERAL Routine 03/01/2023 12:51 PM EDT LIPID PANEL WITH REFLEX TO DIRECT LDL Routine 06/01/2022 9:27 AM EST Type 2 diabetes mellitus without complication, with long-term current use of insulin ([facility]) HPV MRNA E6/E7 Routine 12/29/2020 9:22 AM EDT THINPREP PAP Routine 12/29/2020 9:22 AM EDT from Last 3 Months or Most Recently Relevant to Health Maintenance Results * (ABNORMAL) Glucose, Whole Blood (12/25/2024 9:13 AM EDT) Only the most recent of3 resultswithin the time period is included. Glucose, Whole Blood 211(H) 60 - 115 mg/dL [facility] Comment:METER #: [id number] Testing performed in the Endocrinology Department [address] , [address], [place]. 12/25/2024 9:13 AM EDT 12/25/2024 9:18 AM EDT us Generic External Data Provider LAB BLOOD ORDERAB LES Final Result [facility] [address] [place] [address] [phone] * (ABNORMAL) POCT HGB A1C (11/13/2024 2:22 PM EDT) Hemoglobin A1C 10.9(A) 4.0 - 5.7 % QC Media Lot # [id number] Lot# Expiration Date 3, Blood 11/13/2024 2:22 PM EDT Dallas Romero MD POINT OF CARE TEST EN TER/EDIT ORDERABLES Final Result * (ABNORMAL) POCT Glucose (11/13/2024 2:22 PM EDT) Glucose Blood, POC 332(A) 60 - 200 mg/dL QC Media Lot # [id number] Lot# Expiration Date , Blood Capillary blood specimen / Unknown 11/13/2024 2:22 PM EDT Dallas Romero MD POINT OF CARE TEST ENTER/EDIT ORDERABLES Edited Result - Final * Albumin, Random Urine W/Creatinine (08/27/2024 9:42 AM EDT) Creatinine, Urine 44.88 mg/dL [facility] Microalbumin Urine 12.0 mg/L [facility] Microalbum Creatinine Ratio Ur 26.7 <30 ug/mg cr [facility] Comment:Albumin/Creatinine R atio Reference Ranges: Normal: < 30 ug/mg creatinine Microalbuminuria: 30 - 300 ug/mg creatinineClinical Albuminuria: > 300 ug/mg creatinine Urine (Urine, Random) 08/27/2024 9:42 AM EDT 08/27/2024 11:09 AM EDT us Dallas Romero MD LAB URINE ORDERABLES Final Result [facility] [address] [place] [phone] * BI Mammogram Screening Tomosynthesis Bilateral (03/01/2023 12:51 PM EDT) Anatomical Region Laterality Modality Breast Bilateral Mammography 03/01/2023 12:5 1 PM EDT Narrative 03/15/2023 9:27 AM EDT [facility] [address] [place] [address] Mammography Report Signed Patient: Wendy Rivers MR#: [id number] : 1965 Acct:[id number] Age/Sex: 57 / F ADM Date: 03/01/23 Loc: HO.MAMMO Attending Dr: Dallas Butler MD Ordering Physician: Dallas Butler MD Resu lts: 1Negative Date of Service: 03/01/23 Follow Up: 1 Year From Orig ina Mammogram Procedure(s): MM tomosynthesis screening BI Accession Number(s): [id number] cc: Dallas Butler MD EXAMINATION: MM SCREENING [...] in OV> 03/15/23 0923 DD/ 1251 TD/TT: Centerless Grinder Tender: Procedure Note Donotuseinterpreter, Image - 03/20/2023 [facility] [address] [place], [place] [address] Mammography Report Signed Patient: Wendy RiversMR#: [id number] : 1965Acct:[id number] Age/Sex: 57 / FADM Date: 03/01/23 Loc: HO.MAMMO Attending Dr: Dallas Butler MD Ordering Physician: Dallas Butler MDResu lts: 1Negative Date of Service: 03/01/23Follow Up: 1 Year From Orig inal Mammogram Procedure(s): MM tomosynthesis screening BI Accession Number(s): [id number] cc: Dallas Butler MD EXAMINATION: MM SCREENING [...] MD in OV> 03/15/23922 DD/ 1251 TD/TT: Centerless Grinder Tender: Dallas Romero MD IMG BI PROCEDURES Mykel andrés Result - Final * (ABNORMAL) Lipid Panel with Reflex to Direct LDL (06/01/2022 9:27 AM EST) Cholesterol, Total 90 <200 mg/dL [facility] HDL Cholesterol 35(L) > OR = 50 mg/dL [facility] Triglycerides 113 <150 mg/dL [facility] LDL Cholesterol 35 mg/dL (calc) [facility] Comment: Reference range: <100 Desirable range <100 mg/dL for primary prevention; <70 mg/dL for patients with CHD or diabetic patients with > or = 2 CHD risk factors. LDL-C is now calculated using the Cam-Leonel calculation, which is a validated novel method providing better accuracy than the Friedewald equation in the estimation of LDL-C. Cam SS et al. RONNIE. 2013;310(19): 9148-6047 (http://education.[employer]/faq/MQD337) Chol/HDLC Ratio 2.6 <5.0 (calc) [facility] Non-HDL Cholesterol 55 <130 mg/dL (calc) [facility] Comment: For patients with diabetes plus 1 [...] LAB BLOOD ORDERABLES Final Result [facility] [address], [place] [address] [facility] [address] [facility], (Nl2) [place] [address] * THINPREP PAP (12/29/2020 9:22 AM EDT) Clinical Information: None given [facility] COMMENT SEE COMMENT [facility] Comment: EXPLANATORY NOTE: The Pap is a screening test for cervical cancer. It is not a diagnostic test and is subject to false negative and false positive results. It is most reliable when a satisfactory sample, regularly obtained, is submitted with relevant clinical findings and history, and when the Pap result is evaluated along with historic and current clinical information. Welder Production Line Combination : SEE COMMENT [facility] Comment: KF, CT(ASCP) CT screening location: [address] [address] Interpretation/R esult: Negative for intraepithelial lesion or [...] Final Result [facility] [address] * HPV mRNA E6/E7 (12/29/2020 9:22 AM EDT) HPV nRNA E6/E7 Not Detected Not Detected [facility] Comment: Methodology: Education Supervisor-Mediated Amplification This assay detects E6/E7 viral messenger RNA (mRNA) from 14 high-risk HPV types (16,18,31,33,35,39,45,51,52,56,58,59,66,68). The analytical performance characteristics of this assay have been determined by [facility]. The modifications have not been cleared or approved by the FDA. This assay has been validated pursuant to the CLIA regulations and is used for clinical purposes. For additional information, please refer to http://education.[employer]/faq/GZO689z3 (This link if provided for information/ educational purposes only.) 12/29/2020 9:22 AM EDT us Nancy Rijimenez [facility] LAB BLOOD ORDERABLES Daniela champion Result [facility] [address] from Last 3 Months or Most Recently Relevant to Health Maintenance Insurance [employer] C3 Care Teams Psychiatric Social Worker Supervisor Relationship Specialty Start Date End Date Dallas Menard MD [address] [place] [address] PCP - General Internal Medicine 08/11/15 [facility] 08/15/24
--- OUTSIDE RECORDS SUMMARY | 2025-01-15 11:49 | XMS_ITS | Encounter Summary ---
Author Organization [employer] Address [address] [facility] [address], [place] [address] Care Team Providers Care Car Sales Associate Name Role Phone Dallas Menard MD Primary Care Provide r Encounter Details Date Type Department Care Team (Late st Contact Info) Description 07/11/2022 Orders Only [facility] CHC MED & PEDS [address] [place] [address] Jennifer Lopez LPN Social History Tobacco Use [...] Description 02/03/2025 1:30 PM EDT Office Visit [facility] MEDICINE [address] [place], [place] [phone] Dallas Menard MD [address] [place], [place] [phone] documented as of this encounter Visit Diagnoses Not on filedocumented in this encounter Additional Health Concerns Assessment Noted Time PHQ-9 Depression Total Score: 5 05/30/19 23 11:51 AM EST documented as of this encounter Care Teams Car Sales Associate Relationship Specialty Start Date End Date Dallas Menard MD [address] [place] [address] PCP - General Internal Medicine 08/11/15 [facility] 08/15/24 documented as of this encounter
--- OUTSIDE RECORDS SUMMARY | 2025-01-15 11:49 | XMS_ITS | Encounter Summary ---
Author Organization [employer] Address [address] [facility] 7 [place] [address] Care Team Providers Care Barber Shop Manager Name Role Phone Dallas Menard MD Primary Care Provide r Encounter Details Date Type Department Care Team (Late st Contact Info) Description 05/22/2022 Orders Only [facility] CHC MED & PEDS [address] [place] [address] Jennifer Lopez LPN Social History Tobacco Use [...] Description 02/03/2025 1:30 PM EDT Office Visit [facility] MEDICINE [address] [place] [address] Dallas Menard MD [address] [place], [place] [phone] documented as of this encounter Visit Diagnoses Not on filedocumented in this encounter Care Teams Barber Shop Manager Relationship Specialty Start Date End Date Dallas Menard MD [address] [place], [place] [phone] PCP - General Internal Medicine 08/11/15 [facility] 08/15/24 documented as of this encounter
--- OUTSIDE RECORDS SUMMARY | 2025-01-15 11:49 | XMS_ITS | Encounter Summary ---
Author Organization [employer] Address [address] [facility] 7[place] [address] Care Team Providers Care Transfer And Pumphouse Operator Name Role Phone Dallas Menard MD Primary Care Provide r Reason for Visit * Reason Onset Date Comments FYI 08/14/2024 Encounter Details Date Type Department Care Team ([facility] st Contact Info) Description 08/14/2024 Telephone [facility] MEDICINE [address] [place] [address] Dallas Menard MD [address] [place], [place] [phone] FYI Social History Tobacco Use Types Packs/Day [...] - 08/14/2024 10:13 AM EDT Tc [facility] calling to inform pt was unable to start services today and will be trying again tomorrow 08/15/24. documented in this encounter Plan of Treatment Upcoming Encounters Date Type Department Care Team (Late st Contact Info) Description 02/03/2025 1:30 PM EDT Office Visit [facility] MEDICINE [address] [place] [address] Dallas Menard MD [address] [place], [place] [phone] documented as of this encounter Visit Diagnoses Not on filedocumented in this encounter Additional Health Concerns Assessment Noted Time PHQ-9 Depression Total Score: 13 07/31/ 025 8:43 AM EDT documented as of this encounter Care Teams Transfer And Pumphouse Operator Relationship Specialty Start Date End Date Dallas Menard MD [address] [place] [address] PCP - General Internal Medicine 08/11/15 [facility] 08/15/24 documented as of this encounter
--- OUTSIDE RECORDS SUMMARY | 2025-01-15 11:49 | XMS_ITS | Clinical Summary ---
Author Organization [facility] Address [address] [place] [address] Phone Care Team Providers Care Campus Wellness Coordinator Name Role Phone Dallas Butler MD Primary Care Provi blanca Encounters Date Type Department Care Team Description 11/25/2024 1:44 PM EDT - 11/25/2024 11:59 PM EDT Hospital Encounter [facility] Xray [address] [place] [address] Syncope without other cardiovascular symptoms Discharge Disposition: Home or Self Care from Last 3 Months Medical History Medical History Date Comments Diabetes mellitus type 2, co ntrolled, with complications (CMS/HCC V24, CMS/HCC V28) DX:Diabetes mellitus type 2, controlled, with complications ([facility]) Essential hypertension DX:Essent ial hypertension High cholesterol [...] 08/20/1987 Zoster Vaccines (1 of 2) 2016 Depression Screening 05/14/2024 Cholesterol Screening (Lipid Panel) 10/07/2024 Colorectal Cancer Screening: Colonoscopy 10/07/2024 Diabetes: Annual Urine Albumin-Creatinine Ratio (uACR) 10/07/2024 HIV Screening 10/07/2024 Hepatitis C Screening 10/07/2024 Social Influencers of Health Screening 10/07/2024 COVID-19 Vaccine ( season) 2025 10/18/2023, 12/09/2021, [...] Radha ging Narrative 11/25/2024 2:24 PM EDT Pest Control Chemical Technician [employer] used for the duration of the procedure. [...] Months Insurance MEDICAID - [place] Care Teams Campus Wellness Coordinator Relationship Specialty Start Date End Date Dallas Butler MD [address] [place] [phone] PCP - General Internal Medicine 11/21/24
--- OUTSIDE RECORDS SUMMARY | 2025-01-15 11:49 | XMS_ITS | Encounter Summary ---
Author Organization [employer] Address [address] [facility] 7 [place] [address] Care Team Providers Care Ambulette Driver Name Role Phone Dallas Menard MD Primary Care Provide r Encounter Details Date Type Department Care Team (Late st Contact Info) Description 06/19/2022 Orders Only [facility] CHC MED & PEDS [address] [place], [place] [phone] Jennifer Lopez LPN Social History Tobacco Use [...] Department Care Team (Late Contact Info) Description 02/03/2025 1:30 PM EDT Office Visit [facility] MEDICINE [address] [place], [place] [phone] Dallas Menard MD [address] [place] [address] documented as of this encounter Visit Diagnoses Not on filedocumented in this encounter Additional Health Concerns Assessment Noted Time PHQ-9 Depression Total Score: 5 05/30/19 23 11:51 AM EST documented as of this encounter Care Teams Ambulette Driver Relationship Specialty Start Date End Date Dallas Menard MD [address] [facility] [place] [address] PCP - General Internal Medicine 08/11/15 [facility] 08/15/24 documented as of this encounter
--- OUTSIDE RECORDS SUMMARY | 2025-01-15 11:49 | XMS_ITS | Encounter Summary ---
Author Organization [employer] Address [address] [facility] 7[place] [address] Care Team Providers Care Repossessor Name Role Phone Dallas Menard MD Primary Care Provide r Encounter Details Date Type Department Care Team (Late st Contact Info) Description 10/03/2022 Orders Only [facility] CHC MED & PEDS [address] [place] [address] Jennifer Lopez LPN Social History Tobacco Use [...] 02/03/2025 1:30 PM EDT Office Visit [facility] MEDICINE [address] [place], [place] [phone] Dallas Menard MD [address] [place], [place] [phone] documented as of this encounter Visit Diagnoses Not on filedocumented in this encounter Additional Health Concerns Assessment Noted Time PHQ-9 Depression Total Score: 5 05/30/19 23 11:51 AM EST documented as of this encounter Care Teams Repossessor Relationship Specialty Start Date End Date Dallas Menard MD [address] [place] [address] PCP - General Internal Medicine 08/11/15 [facility] 08/15/24 documented as of this encounter
--- OUTSIDE RECORDS SUMMARY | 2025-01-15 11:49 | XMS_ITS | Encounter Summary ---
Author Organization [employer] Address [address] [facility] 7[place] [address] Care Team Providers Care Rehabilitation Inspector Name Role Phone Dallas Menard MD Primary Care Provide r Reason for Visit * Reason Onset Date Comments Med Refill 12/27/2023 Encounter Details Date Type Department Care Team ([facility] st Contact Info) Description 12/27/2023 Telephone [facility] MEDICINE [address] [place] [address] Dallas Menard MD [address] [place], [place] [phone] Med Refill Social History Tobacco Use Types [...] 100 MG capsule To be sent to: [facility] - [place], [place] - [address] [facility] documented in this encounter Plan of Treatment Upcoming Encounters Date Type Department Care Team (Late st Contact Info) Description 02/03/2025 1:30 PM EDT Office Visit [facility] MEDICINE [address] [place] [address] Dallas Menard MD [address] [place] [address] documented as of this encounter Visit Diagnoses Not on filedocumented in this encounter Additional Health Concerns Assessment Noted Time PHQ-9 Depression Total Score: 14 024 3:35 PM EDT documented as of this encounter Care Teams Rehabilitation Inspector Relationship Specialty Start Date End Date Dallas Menard MD [address] [place] [address] PCP - General Internal Medicine 08/11/15 [facility] 08/15/24 documented as of this encounter
--- OUTSIDE RECORDS SUMMARY | 2025-01-15 11:49 | XMS_ITS | Encounter Summary ---
Author Organization [employer] Address [address] [facility] [address] [address] Care Team Providers Care Automotive Accessory Installer Name Role Phone Dallas Menard MD Primary Care Provide r Encounter Details Date Type Department Care Team (Late st Contact Info) Description 08/14/2022 Orders Only [facility] CHC MED & PEDS [address] [place] [address] Jennifer Lopez LPN Social History Tobacco Use [...] Description 02/03/2025 1:30 PM EDT Office Visit [facility] MEDICINE [address] [place], [place] [phone] Dallas Menard MD [address] [place], [place] [phone] documented as of this encounter Visit Diagnoses Not on filedocumented in this encounter Additional Health Concerns Assessment Noted Time PHQ-9 Depression Total Score: 5 05/30/19 23 11:51 AM EST documented as of this encounter Care Teams Automotive Accessory Installer Relationship Specialty Start Date End Date Dallas Menard MD [address] [place] [address] PCP - General Internal Medicine 08/11/15 [facility] 08/15/24 documented as of this encounter
--- OUTSIDE RECORDS SUMMARY | 2025-01-15 11:49 | XMS_ITS | Encounter Summary ---
Author Organization [employer] Address [address] [place] [address] [address], [place] [address] Care Team Providers Care Clinical Laboratory Manager Name Role Phone Dallas Menard MD Primary Care Provide r Reason for Visit * Reason Comments Med Refill Encounter Details Date Type Department Care Team (Late st Contact Info) Description 07/20/2022 Refill [facility] [address] [place] [address] Alyce Murphy ANP [address] [place] [address] Social History Tobacco Use Types Packs/Day Years [...] 1:30 PM EDT Office Visit [facility] [address] [place] [address] Dallas Menard MD [address] [place], [place] [phone] documented as of this encounter Visit Diagnoses Not on filedocumented in this encounter Additional Health Concerns Assessment Noted Time PHQ-9 Depression Total Score: 5 05/30/19 23 11:51 AM EST documented as of this encounter Care Teams Clinical Laboratory Manager Relationship Specialty Start Date End Date Dallas Menard MD [address] [place] [address] PCP - General Internal Medicine 08/11/15 [facility] 08/15/24 documented as of this encounter
== END 2025-01-15 11:03 | disposition home or self-care (01) ==
LOC: HO.HCS 10:29
PROVIDERS: PCP Internal Medicine; Visit Provider Internal Medicine
DX: I35.0 Nonrheumatic aortic (valve) stenosis (principal); I42.9 Cardiomyopathy, unspecified; I25.10 Atherosclerotic heart disease of native coronary artery without angina pectoris; I10 Essential (primary) hypertension; R55 Syncope and collapse
CPT/HCPCS: 99214

== ENCOUNTER → 2025-01-15 10:28 | Outpatient (BNVA) | payer MEDICAID, SELFPAY | PROVIDERS: PCP Internal Medicine; Visit Provider Internal Medicine | DX: R55 Syncope and collapse (principal); I35.0 Nonrheumatic aortic (valve) stenosis; I42.9 Cardiomyopathy, unspecified; I25.10 Atherosclerotic heart disease of native coronary artery without angina pectoris; I10 Essential (primary) hypertension | CPT/HCPCS: 99212 ==

== ENCOUNTER 2025-01-19 09:55 | Outpatient (AMB) | payer MEDICAID, SELFPAY ==
[2025-01-19 10:18] VITALS: BMI 26.4
--- NOTE | 2025-01-19 10:18 | A.OFFVIS_ITS ---
VS Expanded 01/19/25 10:18 01/20/25 21:47 Height 5 ft 2 in 5 ft 2 in Weight 144 lb 2.917 oz 144 lb BMI 26.4 26.3 Intake Visit Reasons: Type 2 diabetes mellitus with diabetic polyneuropa Allergies morphine (MORPHINE) Allergy (Intermediate, Verified 12/25/24 09:08) ITCHY, RASH oxycodone Allergy (Verified 12/25/24 09:08) Hives contras dye Allergy (Uncoded 12/25/24 09:08) [place] Nutrition Presentation Details: Pt present for MNT for T2DM with polyneuropthy Pt reports participating in breakfast and lunch at [facility] (rice/peas/poultry broccoli/salad, milk , fruit cup), (admits to taking prandial insulin more than 2 hr after lunch meal) Reports increased snack in the evening choosing mostly starches as snack. food frequency fish: 0-1/wk dairy : 1/d fruits: 1/d ve/d starches > 25/d beverages: water, milk, soda physical activity: sedentary etoh/smoking-=== BS Monitoring Most Recent Diabetes Results: Cholesterol, (<200) 166 mg/dL 12/25/24 HDL Cholesterol, (>40) 44 mg/dL 12/25/24 Triglycerides, (<150) 141 mg/dL 12/25/24 KMP-Jxnuxrk-Pr.Jeor Equation Height: 5 ft 2 in Weight: 144 lb Resting Metabolic Rate: 1190.41 Calculated Activity Level: Sedentary Calories Needed to Maintain Weight: 1428.49 Diagnosis Nutrition problem #1: excessive energy intake (from starches mainly ) As related to (etiology) #1: lack of nutrit education and diagnosis As evidenced by (sign/symptom) #1: knowledge deficit of diet and elevated HgbA1c (11.2% on 11/2024) PFSH Medical History Atherosclerotic cardiovascular disease Cardiomyopathy Type 2 diabetes mellitus with diabetic polyneuropathy History of CVA (cerebrovascular accident) Overweight HLD (hyperlipidemia) DM2 (diabetes mellitus, type 2) Asthma Hypertension Depression Myocardial infarction Surgical History Hx of LASIK Hx of cataract surgery Hx of cholecystectomy Hx of section Family History Father No problems noted. Mother No problems noted. Social History Household Members: Family Housing: Apartment Do you presently have visiting nurse or other home services: No Alcohol intake: never Patient Tobacco Use Status: Former Tobacco user service: No Current occupational status: disabled Assessment & Plan Assessment & Plan (1) Type 2 diabetes mellitus with diabetic polyneuropathy: Code(s): E11.42 - Type 2 diabetes mellitus with diabetic polyneuropathy Category: Medical Plan: Wt: 65 Kg ( 02/05 ) Est kcal needs as per MSJ: 1400 (40% carb, 30% protein/fat) Est fluid needs as per 25-30 ml/d: 1900 Est prot per day as per 1 g/kg bw: 70-80 Recommend fiber intake : 8-10 g per day and gradually increase to 25-28 g per day for women and 35-38 g for men or as tolerated Recommend sodium intake per day : less than 2000 mg Educated patient on: ( R = reviewed V = verbalizes understanding N/R = needs review N/A = not applicable * Food sources of carbohydrate, adequate serving sizes and its role in various health conditions: R V N/R * Differences between complex carbohydrates a simple carbohydrates, role of fiber in diet: R * Lean protein sources of foods: R * Differences between types of fats and role in diet (mono on saturated fat fatty acids, saturated fatty acids, trans fats): R V N/R * Food sources of sodium in salt and healthy modifications for heart health in kidney health: R V R/V * Vitamins and minerals: R * Healthy plate method concept: R * Physical activity: Benefits a precaution: R V N/R * Hypoglycemia protocol (rule of 15): R V N/R * Dietary prevention of Hyperglycemia: R Patient Instructions: Include lean protein as snack in the evening : alternate between , protein shake, yogurt, 1/2 sandwich with tuna or cheese keep hydrated by having water with meals /snacks Take novolog insulin 10-15 minute before the meals as prescribed by your doctor see meal plan ideas consisiting of 30-45 g carb and 20-30 g protein and snack 15 g carb and 8-12 g protein Coding Level of Care Code Nutr Indiv Intake (35288) Diagnoses Type 2 diabetes mellitus with diabetic polyneuropathy E11.42 Time Spent (min) 40
--- OUTSIDE RECORDS SUMMARY | 2025-01-19 11:34 | XMS_ITS | Encounter Summary ---
Author Organization [employer] Address [address] [facility] 7 [place] [address] Care Team Providers Care Spreader Operator Automatic Name Role Phone [place] Menard MD Primary Care Provide r Encounter Details Date Type Department Care Team (Late st Contact Info) Description 05/22/2022 Orders Only [facility] CHC MED & PEDS [address] [place] [address] Jennifer Lopez LPN Social History Tobacco Use [...] Description 02/03/2025 1:30 PM EDT Office Visit [facility] MEDICINE [address] [place] [address] [place] Menard MD [address] [place], [place] [phone] documented as of this encounter Visit Diagnoses Not on filedocumented in this encounter Care Teams Spreader Operator Automatic Relationship Specialty Start Date End Date [place] Menard MD [address] [place], [place] [phone] PCP - General Internal Medicine 08/11/15 [facility] 08/15/24 documented as of this encounter
--- OUTSIDE RECORDS SUMMARY | 2025-01-19 11:34 | XMS_ITS | Encounter Summary ---
Author Organization [employer] Address [address] [facility] 7 [place] [address] Care Team Providers Care Monument Erector Name Role Phone [place] Menard MD Primary Care Provide r Reason for Visit * Reason Comments Med Refill Encounter Details Date Type Department Care Team (Late st Contact Info) Description 08/10/2023 Refill [facility] MEDICINE [address] [place] [address] [place] Menard MD [address] [place], [place] [phone] Chronic abdominal pain Social History Tobacco Use [...] Description 02/03/2025 1:30 PM EDT Office Visit [facility] MEDICINE [address] [place] [address] [place] Menard MD [address] [place] [address] documented as of this encounter Visit Diagnoses Diagnosis Chronic abdominal pain Abdominal pain, unspecified site documented in this encounter Additional Health Concerns Assessment Noted Time PHQ-9 Depression Total Score: 23 024 9:40 AM EST documented as of this encounter Care Teams Monument Erector Relationship Specialty Start Date End Date [place] Menard MD [address] [place] [address] PCP - General Internal Medicine 08/11/15 [facility] 08/15/24 documented as of this encounter
--- OUTSIDE RECORDS SUMMARY | 2025-01-19 11:34 | XMS_ITS | Encounter Summary ---
Author Organization [employer] Address [address] [facility] [address] [address] Care Team Providers Care Aerospace Manager Name Role Phone [place] Menard MD Primary Care Provide r Encounter Details Date Type Department Care Team (Late st Contact Info) Description 10/03/2022 Orders Only [facility] CHC MED & PEDS [address] [place] [address] Jennifer Lopez LPN Social History Tobacco Use [...] Description 02/03/2025 1:30 PM EDT Office Visit [facility] MEDICINE [address] [place], [place] [phone] [place] Menard MD [address] [place], [place] [phone] documented as of this encounter Visit Diagnoses Not on filedocumented in this encounter Additional Health Concerns Assessment Noted Time PHQ-9 Depression Total Score: 5 05/30/19 23 11:51 AM EST documented as of this encounter Care Teams Aerospace Manager Relationship Specialty Start Date End Date [place] Menard MD [address] [place] [address] PCP - General Internal Medicine 08/11/15 [facility] 08/15/24 documented as of this encounter
--- OUTSIDE RECORDS SUMMARY | 2025-01-19 11:34 | XMS_ITS | Encounter Summary ---
Author Organization [employer] Address [address] [place] [address] Care Team Providers Care Telephone Operator Receptionist Name Role Phone [place] Menard MD Primary Care Provide r Reason for Visit * Reason Onset Date Comments Appointment Request 07/31/2022 Encounter Details Date Type Department Care Team ([facility] st Contact Info) Description 07/31/2022 Telephone [facility] MEDICINE [address] [place] [address] [place] Menard MD [address] [place] [address] Appointment Request Social History Tobacco Use Types [...] appt was wanted. Please contact pt at [phone] documented in this encounter Plan of Treatment Upcoming Encounters Date Type Department Care Team (Late st Contact Info) Description 02/03/2025 1:30 PM EDT Office Visit [facility] MEDICINE [address] [facility] [place] [address] [place] Menard MD [address] [place] [address] documented as of this encounter Visit Diagnoses Not on filedocumented in this encounter Additional Health Concerns Assessment Noted Time PHQ-9 Depression Total Score: 5 05/30/19 23 11:51 AM EST documented as of this encounter Care Teams Telephone Operator Receptionist Relationship Specialty Start Date End Date [place] Menard MD [address] [facility] [place] [address] PCP - General Internal Medicine 08/11/15 [facility] 08/15/24 documented as of this encounter
--- OUTSIDE RECORDS SUMMARY | 2025-01-19 11:34 | XMS_ITS | Encounter Summary ---
Author Organization [email or web address] Address [address] [facility] 7 [place] [address] Care Team Providers Care 7Th Grade Social Studies Teacher Name Role Phone [place] Menard MD Primary Care Provide r Reason for Visit * Reason Comments Med Refill Encounter Details Date Type Department Care Team (Late st Contact Info) Description 05/09/2024 Refill [facility] MEDICINE [address] [place] [address] [place] Menard MD [address] [place], [place] [phone] Chronic abdominal pain Social History Tobacco Use [...] Description 02/03/2025 1:30 PM EDT Office Visit [facility] MEDICINE [address] [place] [address] [place] Menard MD [address] [place] [address] documented as of this encounter Visit Diagnoses Diagnosis Chronic abdominal pain Abdominal pain, unspecified site documented in this encounter Additional Health Concerns Assessment Noted Time PHQ-9 Depression Total Score: 14 024 3:35 PM EDT documented as of this encounter Care Teams 7Th Grade Social Studies Teacher Relationship Specialty Start Date End Date [place] Menard MD [address] [place] [address] PCP - General Internal Medicine 08/11/15 [facility] 08/15/24 documented as of this encounter
--- OUTSIDE RECORDS SUMMARY | 2025-01-19 11:34 | XMS_ITS | Encounter Summary ---
Author Organization [employer] Address [address] [facility] [address] [place] [address] Care Team Providers Care Mixing Picker Tender Name Role Phone [place] Menard MD Primary Care Provide r Encounter Details Date Type Department Care Team (Late st Contact Info) Description 10/16/2022 Orders Only [facility] MEDICINE [address] [place] [address] [phone] Christie Strauss LPN Social History Tobacco Use [...] Description 02/03/2025 1:30 PM EDT Office Visit [facility] MEDICINE [address] [place], [place] [phone] [place] Menard MD [address] [place], [place] [phone] documented as of this encounter Visit Diagnoses Not on filedocumented in this encounter Additional Health Concerns Assessment Noted Time PHQ-9 Depression Total Score: 5 05/30/19 23 11:51 AM EST documented as of this encounter Care Teams Mixing Picker Tender Relationship Specialty Start Date End Date [place] Menard MD [address] [place] [address] PCP - General Internal Medicine 08/11/15 [facility] 08/15/24 documented as of this encounter
--- OUTSIDE RECORDS SUMMARY | 2025-01-19 11:34 | XMS_ITS | Encounter Summary ---
Author Organization [employer] Address [address] [facility] [address] [address] Care Team Providers Care Hatchery Man Name Role Phone [place] Menard MD Primary Care Provide r Reason for Visit * Reason Onset Date Comments Appointment Request 07/10/2024 Encounter Details Date Type Department Care Team ([facility] st Contact Info) Description 07/10/2024 Telephone [facility] MEDICINE [address] [place] [address] [place] Menard MD [address] [place], [place] [phone] Appointment Request Social History Tobacco Use Types [...] EST Tc from pt requesting appointment , sql report writer advised theres no soon appointments available as if any symptoms sql report writer could assist with triage nurse as pt denied. documented in this encounter Plan of Treatment Upcoming Encounters Date Type Department Care Team (Late st Contact Info) Description 02/03/2025 1:30 PM EDT Office Visit [facility] MEDICINE [address] [place] [address] [place] Menard MD [address] [place] [address] documented as of this encounter Visit Diagnoses Not on filedocumented in this encounter Additional Health Concerns Assessment Noted Time PHQ-9 Depression Total Score: 14 024 3:35 PM EDT documented as of this encounter Care Teams Hatchery Man Relationship Specialty Start Date End Date [place] Menard MD [address] [place] [address] PCP - General Internal Medicine 08/11/15 [facility] 08/15/24 documented as of this encounter
--- OUTSIDE RECORDS SUMMARY | 2025-01-19 11:34 | XMS_ITS | Encounter Summary ---
Author Organization [employer] Address [address] [facility] [address] [address] Care Team Providers Care Student Development Specialist Name Role Phone [place] Menard MD Primary Care Provide r Encounter Details Date Type Department Care Team (Late st Contact Info) Description 08/14/2022 Orders Only [facility] CHC MED & PEDS [address] [place] [address] Jennifer Lopez LPN Social History Tobacco Use [...] Description 02/03/2025 1:30 PM EDT Office Visit [facility] MEDICINE [address] [place], [place] [phone] [place] Menard MD [address] [place], [place] [phone] documented as of this encounter Visit Diagnoses Not on filedocumented in this encounter Additional Health Concerns Assessment Noted Time PHQ-9 Depression Total Score: 5 05/30/19 23 11:51 AM EST documented as of this encounter Care Teams Student Development Specialist Relationship Specialty Start Date End Date [place] Menard MD [address] [place] [address] PCP - General Internal Medicine 08/11/15 [facility] 08/15/24 documented as of this encounter
--- OUTSIDE RECORDS SUMMARY | 2025-01-19 11:34 | XMS_ITS | Encounter Summary ---
Author Organization [employer] Address [address] [facility] [address] [address] Care Team Providers Care Head Greenskeeper Name Role Phone [place] Menard MD Primary Care Provide r Reason for Visit * Reason Onset Date Comments FYI 08/14/2024 Encounter Details Date Type Department Care Team ([facility] st Contact Info) Description 08/14/2024 Telephone [facility] MEDICINE [address] [place] [address] [place] Menard MD [address] [place], [place] [phone] FYI Social History Tobacco Use Types Packs/Day [...] - 08/14/2024 10:13 AM EDT Tc from [facility] calling to inform pt was unable to start services today and will be trying again tomorrow 08/15/24. documented in this encounter Plan of Treatment Upcoming Encounters Date Type Department Care Team (Late st Contact Info) Description 02/03/2025 1:30 PM EDT Office Visit [facility] MEDICINE [address] [place] [address] [place] Menard MD [address] [place], [place] [phone] documented as of this encounter Visit Diagnoses Not on filedocumented in this encounter Additional Health Concerns Assessment Noted Time PHQ-9 Depression Total Score: 13 07/31/ 025 8:43 AM EDT documented as of this encounter Care Teams Head Greenskeeper Relationship Specialty Start Date End Date [place] Menard MD [address] [place] [address] PCP - General Internal Medicine 08/11/15 [facility] 08/15/24 documented as of this encounter
--- OUTSIDE RECORDS SUMMARY | 2025-01-19 11:34 | XMS_ITS | Encounter Summary ---
Author Organization [employer] Address [address] [facility] 7[place] [address] Care Team Providers Care Board Saw Runner Name Role Phone [place] Menard MD Primary Care Provide r Encounter Details Date Type Department Care Team (Late st Contact Info) Description 07/11/2022 Orders Only [facility] CHC MED & PEDS [address] [place] [address] Jennifer Lopez LPN Social History Tobacco Use [...] Description 02/03/2025 1:30 PM EDT Office Visit [facility] MEDICINE [address] [place], [place] [phone] [place] Menard MD [address] [place], [place] [phone] documented as of this encounter Visit Diagnoses Not on filedocumented in this encounter Additional Health Concerns Assessment Noted Time PHQ-9 Depression Total Score: 5 05/30/19 23 11:51 AM EST documented as of this encounter Care Teams Board Saw Runner Relationship Specialty Start Date End Date [place] Menard MD [address] [place] [address] PCP - General Internal Medicine 08/11/15 [facility] 08/15/24 documented as of this encounter
--- OUTSIDE RECORDS SUMMARY | 2025-01-19 11:34 | XMS_ITS | Encounter Summary ---
Author Organization [employer] Address [address] [facility] [address] [place] [address] Care Team Providers Care Aws Consultant Name Role Phone [place] Menard MD Primary Care Provide r Encounter Details Date Type Department Care Team (Late st Contact Info) Description 06/19/2022 Orders Only [facility] CHC MED & PEDS [address] [place], [place] [phone] Jennifer Lopez LPN Social History Tobacco Use [...] Description 02/03/2025 1:30 PM EDT Office Visit [facility] MEDICINE [address] [place], [place] [phone] [place] Menard MD [address] [place] [address] documented as of this encounter Visit Diagnoses Not on filedocumented in this encounter Additional Health Concerns Assessment Noted Time PHQ-9 Depression Total Score: 5 05/30/19 23 11:51 AM EST documented as of this encounter Care Teams Aws Consultant Relationship Specialty Start Date End Date [place] Menard MD [address] [facility] [place] [address] PCP - General Internal Medicine 08/11/15 [facility] 08/15/24 documented as of this encounter
--- OUTSIDE RECORDS SUMMARY | 2025-01-19 11:34 | XMS_ITS | Encounter Summary ---
Author Organization [employer] Address [address] [place] [address] [address], [place] [address] Care Team Providers Care Floor Representative Name Role Phone [place] Menard MD Primary Care Provide r Reason for Visit * Reason Comments Med Refill Encounter Details Date Type Department Care Team (Late st Contact Info) Description 07/20/2022 Refill [facility] MEDICINE [address] [place] [address] Alyce Murphy ANP [address] [place] [address] Social History Tobacco Use Types Packs/Day Years [...] 02/03/2025 1:30 PM EDT Office Visit [facility] MEDICINE [address] [place] [address] [place] Menard MD [address] [place], [place] [phone] documented as of this encounter Visit Diagnoses Not on filedocumented in this encounter Additional Health Concerns Assessment Noted Time PHQ-9 Depression Total Score: 5 05/30/19 23 11:51 AM EST documented as of this encounter Care Teams Floor Representative Relationship Specialty Start Date End Date [place] Menard MD [address] [place] [address] PCP - General Internal Medicine 08/11/15 [facility] 08/15/24 documented as of this encounter
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
--- OUTSIDE RECORDS SUMMARY | 2025-01-19 11:34 | XMS_ITS | Encounter Summary ---
Author Organization [employer] Address [address] [facility] [address], [place] [address] Care Team Providers Care Ball Shagger Name Role Phone Dallas Menard MD Primary Care Provide r Reason for Visit * Reason Onset Date Comments Med Refill 12/27/2023 Encounter Details Date Type Department Care Team ([facility] st Contact Info) Description 12/27/2023 Telephone [facility] MEDICINE [address] [place] [address] Dallas Menard MD [address] [place], [place] [phone] Med Refill Social History Tobacco Use Types [...] 100 MG capsule To be sent to: [facility] - [place], [place] - [address] [facility] documented in this encounter Plan of Treatment Upcoming Encounters Date Type Department Care Team (Late st Contact Info) Description 02/03/2025 1:30 PM EDT Office Visit [facility] MEDICINE [address] [place] [address] Dallas Menard MD [address] [place] [address] documented as of this encounter Visit Diagnoses Not on filedocumented in this encounter Additional Health Concerns Assessment Noted Time PHQ-9 Depression Total Score: 14 024 3:35 PM EDT documented as of this encounter Care Teams Ball Shagger Relationship Specialty Start Date End Date Dallas Menard MD [address] [place] [address] PCP - General Internal Medicine 08/11/15 [facility] 08/15/24 documented as of this encounter
--- OUTSIDE RECORDS SUMMARY | 2025-01-19 11:34 | XMS_ITS | Clinical Summary ---
Author Organization [facility] Address [address] [place] [address] Phone Care Team Providers Care Plastic Cablemaking Machine Operator Name Role Phone Dallas Butler MD Primary Care Provi blanca Encounters Date Type Department Care Team Description 11/25/2024 1:44 PM EDT - 11/25/2024 11:59 PM EDT Hospital Encounter [facility] [address] [place] [address] Syncope without other cardiovascular symptoms Discharge Disposition: Home or Self Care from Last 3 Months Medical History Medical History Date Comments Diabetes mellitus type 2, co ntrolled, with complications (CMS/HCC V24, CMS/HCC V28) DX:Diabetes mellitus type 2, controlled, with complications ([facility]) Essential hypertension DX:Essent ial hypertension High cholesterol [...] Radha ging Narrative 11/25/2024 2:24 PM EDT Wind Power Project Manager [employer] used for the duration of the procedure. [...] Months Insurance MEDICAID - [place] Care Teams Plastic Cablemaking Machine Operator Relationship Specialty Start Date End Date Dallas Butler MD [address] [place] [id number] PCP - General Internal Medicine 11/21/24
--- OUTSIDE RECORDS SUMMARY | 2025-01-19 11:34 | XMS_ITS | Encounter Summary ---
Author Organization [employer] Address [address] [facility] [address] [place] [address] Care Team Providers Care Electric Meter Installer Helper Name Role Phone Dallas Menard MD Primary Care Provide r Reason for Visit * Reason Comments Med Refill Encounter Details Date Type Department Care Team (Late st Contact Info) Description 01/17/2025 Refill [facility] [address] [place] [address] Dallas Menard MD [address] [place], [place] [phone] Mild intermittent asthma without complication Social History [...] Description 02/03/2025 1:30 PM EDT Office Visit [facility] [address] [place] [address] Dallas Menard MD [address] [place] [address] documented as of this encounter Visit Diagnoses Diagnosis Mild intermittent asthma without complication documented in this encounter Additional Health Concerns Assessment Noted Time PHQ-9 Depression Total Score: 13 025 8:43 AM EDT documented as of this encounter Care Teams Electric Meter Installer Helper Relationship Specialty Start Date End Date Dallas Menard MD [address] [place] [address] PCP - General Internal Medicine 08/11/15 [facility] 08/15/24 documented as of this encounter
--- OUTSIDE RECORDS SUMMARY | 2025-01-19 11:34 | XMS_ITS | Encounter Summary ---
Author Organization [employer] Address [address] [facility] [address] [address] Care Team Providers Care Varitypist Name Role Phone Dallas Menard MD Primary Care Provide r Reason for Visit * Reason Onset Date Comments Hospital Follow-up 08/11/2024 Encounter Details Date Type Department Care Team ([facility] st Contact Info) Description 08/11/2024 Telephone [facility] [address] [place] [address] Dallas Menard MD [address] [place], [place] [phone] Hospital Follow-up Social History Tobacco Use Types [...] from pt requesting a HDF appt. Hospital: [facility] Date of admission: 08/08/24 Discharge date: 08/11/24 Diagnosed: Dizziness and Abnormality in the Ecocardiogram. *Send message to [place] [facility] Clinical Care Coordinators Contact pt at [phone] documented in this encounter Plan of Treatment Upcoming Encounters Date Type Department Care Team ([facility] st Contact Info) Description 02/03/2025 1:30 PM EDT Office Visit [facility] [address] [place] [address] Dallas Menard MD [address] [place] [address] documented as of this encounter Visit Diagnoses Not on filedocumented in this encounter Additional Health Concerns Assessment Noted Time PHQ-9 Depression Total Score: 13 025 8:43 AM EDT documented as of this encounter Care Teams Varitypist Relationship Specialty Start Date End Date Dallas Menard MD [address] [place] [address] PCP - General Internal Medicine 08/11/15 [facility] 08/15/24 documented as of this encounter
--- OUTSIDE RECORDS SUMMARY | 2025-01-19 11:34 | XMS_ITS | Encounter Summary ---
Author Organization [employer] Address [address] [facility] [address] [place] [address] Care Team Providers Care Roller Turner Name Role Phone Dallas Menard MD Primary Care Provide r Reason for Visit * Reason Comments Med Refill Encounter Details Date Type Department Care Team (Late st Contact Info) Description 12/22/2023 Refill [facility] [address] [place], [place] [phone] Dallas Menard MD [address] [place] [address] Chronic abdominal pain Social History Tobacco Use [...] EDT Office Visit [facility] [address] [place] [address] Dallas Menard MD [address] [place] [address] documented as of this encounter Visit Diagnoses Diagnosis Chronic abdominal pain Abdominal pain, unspecified site documented in this encounter Additional Health Concerns Assessment Noted Time PHQ-9 Depression Total Score: 14 024 3:35 PM EDT documented as of this encounter Care Teams Roller Turner Relationship Specialty Start Date End Date Dallas Menard MD [address] [place] [id number] PCP - General Internal Medicine 08/11/15 [facility] 08/15/24 documented as of this encounter
--- OUTSIDE RECORDS SUMMARY | 2025-01-19 11:34 | XMS_ITS | Encounter Summary ---
Author Organization [employer] Address [address] [facility] [address] [address] Care Team Providers Care Bicycle Subassembler Name Role Phone Dallas Menard MD Primary Care Provide r Encounter Details Date Type Department Care Team (Late st Contact Info) Description 07/20/2022 Orders Only [facility] [address] [place] [phone] Christie Strauss LPN Social History Tobacco Use [...] Description 02/03/2025 1:30 PM EDT Office Visit [facility] [address] [place], [place] [phone] Dallas Menard MD [address] [place], [place] [phone] documented as of this encounter Visit Diagnoses Not on filedocumented in this encounter Additional Health Concerns Assessment Noted Time PHQ-9 Depression Total Score: 5 05/30/19 23 11:51 AM EST documented as of this encounter Care Teams Bicycle Subassembler Relationship Specialty Start Date End Date Dallas Menard MD [address] [place] [id number] PCP - General Internal Medicine 08/11/15 [facility] 08/15/24 documented as of this encounter
--- OUTSIDE RECORDS SUMMARY | 2025-01-19 11:34 | XMS_ITS | Encounter Summary ---
Author Organization [employer] Address [address] [facility] [address] [place] [address] Care Team Providers Care Business Practices Officer Name Role Phone Dallas Menard MD Primary Care Provide r Reason for Visit * Reason Comments Med Refill Encounter Details Date Type Department Care Team (Late st Contact Info) Description 08/21/2024 Refill [facility] [address] [place] [address] Dallas Menard MD [address] [place], [place] [phone] Chronic abdominal pain Social History Tobacco Use [...] Visit [facility] [address] [place] [address] Dallas Menard MD [address] [place] [address] documented as of this encounter Visit Diagnoses Diagnosis Chronic abdominal pain Abdominal pain, unspecified site documented in this encounter Additional Health Concerns Assessment Noted Time PHQ-9 Depression Total Score: 13 025 8:43 AM EDT documented as of this encounter Care Teams Business Practices Officer Relationship Specialty Start Date End Date Dallas Menard MD [address] [place] [address] PCP - General Internal Medicine 08/11/15 [facility] 08/15/24 documented as of this encounter
[2025-01-20 21:47] VITALS: BMI 26.3
== END 2025-01-19 10:47 | disposition home or self-care (01) ==
LOC: HO.ENCR 09:55
PROVIDERS: PCP Internal Medicine; Visit Provider Dietitian, Registered
DX: E11.42 Type 2 diabetes mellitus with diabetic polyneuropathy (principal)

== ENCOUNTER → 2025-01-19 09:55 | Outpatient (BNVA) | payer MEDICAID, SELFPAY | PROVIDERS: PCP Internal Medicine; Visit Provider Dietitian, Registered | DX: E11.42 Type 2 diabetes mellitus with diabetic polyneuropathy (principal) | CPT/HCPCS: 97802 ==

== ENCOUNTER 2025-02-03 17:19 | Outpatient (REF) | payer MEDICAID, SELFPAY ==
--- OUTSIDE RECORDS SUMMARY | 2025-02-03 13:30 | XMS_ITS | Encounter Summary ---
Author Organization [employer] Address [address] [facility] [address] [place] [address] Care Team Providers Care Air Technician Name Role Phone Dallas Menard MD Primary Care Provide r Reason for Referral * Consultation (Routine) - Authorized Specialty Diagnoses / Procedures Referred By Contmikki t Referred To Contact Midwifery Diagnoses Preventative health care Dallas Menard MD [address], [place] Phone: tel: fax: Nancy James CNM [address] [place] [address] Phone: tel: fax: Referral ID Status Reason Start Date Expiration Date Visits Requested Visits Authorized [id number] Authorized Consult and Treat 02/03/2025 02/03/2026 1 1 * Consultation (Routine) - Closed Specialty Diagnoses / Procedures Referred By Contac t Referred To Contact Gastroenterology Diagnoses Colon cancer screening Dallas Menard MD [address] [place] [address] Phone: tel: fax: Madhavi Trujillo [address] [place] [address] Phone: tel: Referral ID Status Reason Start Date Expiration Date V isits Requested Visits Authorized [id number] Closed Specialty Services Required 02/03/2025 02/03/2026 6 6 * Imaging (Routine) - Authorized Specialty Diagnoses / Procedures Referred By Contac t Referred To Contact Radiology Diagnoses Breast cancer screening by mammogram Procedures BI Mammogram Screening Tomosynthesis Bilateral Dallas Menard MD [address] [place] [address] Phone: tel: fax: [address] Phone: tel: fax: Referral ID Status Reason Start Date Expiration Date V isits Requested Visits Authorized [id number] Authorized 02/03/2025 02/03/2026 1 1 Encounter Details Date Type Department Care Team (Latest Contact Info) Description 02/03/2025 1:30 PM EDT Office Visit [facility] MEDICINE [address] [place], [place] [phone] Dallas Menard MD [address], [place] [phone] Type 2 diabetes mellitus with diabetic polyneuropathy, with long-term current use of insulin (CMS/HCC) (Primary Dx); Frequent falls; Primary osteoarthritis of right knee; Severe recurrent major depression with psychotic features (CMS/HCC); Breast cancer screening by mammogram; Essential hypertension; Colon cancer screening; Preventative health care; Dysuria Social History Tobacco Use Types Packs/Day Years Used Date Smoking Tobacco: Never Passive Smoke Exposure: Never Smokeless Tobacco: Never Tobacco Cessation:Counseling Given: Not Answered Alcohol Use Standard Drinks/Week Comments Not Currently 0 (1 standard drink = 0.6 oz pur e alcohol) Depression Answer Date Recorded Patient Health Questionnaire-9 Score 9 02/03/2025 Patient Health Questionnaire-9 Score 9 02/03/2025 Last PHQ-9: Questionnaire Data Not on file 0 02/03/2025 Housing Stability Answer Date Recorded What is [...] Answer Date Recorded Patient Health Questionnaire-2 Score 3 02/03/2025 Internet Access Answer Date Recorded Internet Access [...] Sign Reading Time Taken Comments Blood Pressure 134/68 02/03/2025 1:39 PM EDT Pulse 66 02/03/2025 1:39 PM EDT Temperature 36.2 C (97.1 F) 02/03/2025 1:39 PM EDT Respiratory Rate 20 02/03/2025 1:39 PM EDT Oxygen Saturation 95% 02/03/2025 1:39 PM EDT Inhaled Oxygen Concentration - - Weight 68.9 kg (152 lb) 02/03/2025 1:39 PM EDT Height 160 cm (5' 3 ) 02/03/2025 1:39 PM EDT Body Mass Index 26.93 02/03/2025 1:39 PM EDT documented in this encounter Functional Status * Over the past 2 weeks, how often have you been bothered by any of the following problems? Question Answer Date of Assessment Author Patient Health Questionnaire -2 Score 3 02/03/2025 1:49 PM EDT Uyen Mendoza MA * Little interest or pleasure in doing things Answer Date of Assessment Author More than half the days 02/03/2025 1:49 PM EDT Uyen Louis MA * Feeling down, depressed, or hopeless Answer Date of Assessment Author Several days 02/03/2025 1:49 PM EDT Gertrude Mendoza MA * Trouble falling or staying asleep, or sleeping too much Answer Date of Assessment Author Several days 02/03/2025 1:49 PM EDT Gertrude Mendoza MA * Feeling tired or having little energy Answer Date of Assessment Author Several days 02/03/2025 1:49 PM EDT Gertrude Mendoza MA * Poor appetite or overeating Answer Date of Assessment Author Several days 02/03/2025 1:49 PM EDT Gertrude Mendoza MA * Feeling bad about yourself - or that you are a failure or have let yourself or your family down Answer Date of Assessment Author Several days 02/03/2025 1:49 PM EDT Gertrude Mendoza MA * Trouble concentrating on things, such as reading the newspaper or watching television Answer Date of Assessment Author Several days 02/03/2025 1:49 PM EDT Gertrude Mendoza MA * Moving or speaking so slowly that other people could have noticed? Or the opposite - being so fidgety or restless that you have been moving around a lot more than usual. Answer Date of Assessment Author Several days 02/03/2025 1:49 PM EDT Gertrude Mendoza MA * Thoughts that you would be better off or hurting yourself in some way Answer Date of Assessment Author Not at all 02/03/2025 1:49 PM EDT Gertrude Mendoza MA * Patient Health Questionnaire-9 Score Answer Date of Assessment Author 9 02/03/2025 1:49 PM EDT Gertrude Mendoza MA * How difficult have these problems made it for you to do your work, take care of things at home, or get along with other people? Answer Date of Assessment Author Somewhat difficult 02/03/2025 1:49 PM EDT Uyen Mendoza MA * Over the last 2 weeks, how often have you been bothered by any of the following problems? Question Answer Date of Assessment Author Feeling nervous, anxious, or on edge 1 02/03/2025 1:50 PM EDT Uyen Mendoza MA Not being able to stop or co ntrol worrying 2 02/03/2025 1:50 PM EDT Uyen Mendoza MA Worrying too much about diff erent things 2 02/03/2025 1:50 PM EDT Uyen Mendoza MA Trouble relaxing 2 02/03/2025 1:50 PM EDT Uyen Louis MA Being so restless that it is hard to sit still 1 02/03/2025 1:50 PM EDT Uyen Mendoza MA Becoming easily annoyed or irritable 2 02/03/2025 1:50 PM EDT Uyen Mendoza MA Feeling afraid as if somethi ng awful might happen 2 02/03/2025 1:50 PM EDT Uyen Mendoza MA KARIN-7 Total Score 12 02/03/2025 1:50 PM EDT Uyen Mendoza MA documented as of this encounter Progress Notes * Dallas Romero MD - 02/03/2025 1:30 PM EDT BRAYDEN Rivers is a 59 y.o. female who presents for No chief complaint on file.. Patient is here for a routine physical exam Diabetes She presents for her follow-up diabetic visit. She has type 2 diabetes mellitus. Pertinent negatives for hypoglycemia include no dizziness or headaches. Pertinent negatives for diabetes include no chest pain and no fatigue. Review of Systems Constitutional: Negative for appetite change, fatigue and fever. HENT: Negative for ear pain, hearing loss and sore throat. Eyes: Negative for pain and visual disturbance. Respiratory: Negative for cough and shortness of breath. Cardiovascular: Negative for chest pain and palpitations. Gastrointestinal: Negative for abdominal pain, nausea and vomiting. Genitourinary: Negative for dysuria. Skin: Negative for rash. Neurological: Negative for dizziness and headaches. Psychiatric/Behavioral: Negative for sleep disturbance. Allergies[1] OBJECTIVE Vitals: 02/03/25 1339 BP: 134/68 BP Location: Left arm Patient Position: Sitting BP Cuff Size: Adult Pulse: 66 Resp: 20 Temp: 97.1 ??F (36.2 ??C) TempSrc: Temporal SpO2: 95% Weight: 152 lb (68.9 kg) Height: 5' 3 (1.6 m) Physical Exam Vitals reviewed. Constitutional: General: She is awake. Appearance: Normal appearance. She is well-developed. HENT: Head: Normocephalic and atraumatic. Right Ear: Tympanic membrane, ear canal and external ear normal. Left Ear: Tympanic membrane, ear canal and external ear normal. Nose: Nose normal. Mouth/Throat: Mouth: Mucous membranes are moist. Pharynx: Oropharynx is clear. Eyes: Extraocular Movements: Extraocular movements intact. Conjunctiva/sclera: Conjunctivae normal. Pupils: Pupils are equal, round, and reactive to light. Cardiovascular: Rate and Rhythm: Normal rate and regular rhythm. Pulses: Normal pulses. Heart sounds: Normal heart sounds. Pulmonary: Effort: Pulmonary effort is normal. Breath sounds: Normal breath sounds. Chest: Breasts: Right: Normal. No swelling, bleeding, inverted nipple, mass or nipple discharge. Left: Normal. No swelling, bleeding, inverted nipple, mass or nipple discharge. Abdominal: General: Bowel sounds are normal. Palpations: Abdomen is soft. Musculoskeletal: General: Normal range of motion. Cervical back: Normal range of motion and neck supple. Lymphadenopathy: Upper Body: Right upper body: No supraclavicular or axillary adenopathy. Left upper body: No supraclavicular or axillary adenopathy. Skin: General: Skin is warm. Capillary Refill: Capillary refill takes less than 2 seconds. Neurological: General: No focal deficit present. Mental Status: She is alert and oriented to person, place, and time. Deep Tendon Reflexes: Reflexes are normal and symmetric. Psychiatric: Mood and Affect: Mood normal. Assessment/Plan Problem List Items Addressed This Visit Type 2 diabetes mellitus with neurologic complication (CMS/HCC) - Primary Patient is here for a f/u DM uncontrolled. Last seen by endocrinology 12/25/2024 Hgb A1c 02/03/2025: 10.4 from 10.9 She is on a regimen of: Tresiba up to 96 units sc in pm ( Administered by her PATIENT SCHEDULER ) and NovoLog 12 units in AM, 12 at lunch and 16 at dinner as well as Trulicity 0.75 mg q week ( lowered due to pt c/o anorexia with higher dose) and Metformin 500 mg po BID. She has a Medbox. Plan: As per Endocrinology, during last visit he stated he did not have enough data to make adjustments Microalbumin from 08/27/2024; 12 Eye Exam : [facility] and lasik 08/07/2024 No retinopathy Foot check risk of One Pt already on ASA 81 mg po daily. f/u with me in 3 months Pt was previously referred to our music educator as well, but she documented her unsuccessful efforts to help her and at this moment there was nothing else she could offer her Relevant Orders POCT Glucose (Completed) POCT Hgb A1c (Completed) Frequent falls Here for a f/u [...] extremely poor historian Pt was evaluated at [facility] Neurology. Notes mentioned that she was [...] Pt was referred back to Neurology at [facility] and was seen 02/22/2024 by hamzah De León ELECTRICAL CONTROLS DESIGNER She ordered B12, MMA, copper, Vit E and CRP and an MRI of her brain. She was going to consider EMG or EEG if initial testing was unrevealing. She was supposed to follow up in 3 months. 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 Pt was seen by her Angle Roll Operator Dr Kruse who recommended a repeat radial cardiac cath ( doneat [facility] 09/2024) diagnostic catheterization done it seems that there is no definitive hemodynamicallysignificant aortic stenosis. Pt underwent a tilt table test that was described as unremarkable by Angle Roll Operator who last saw her 01/15/2025 and recommended aggressive reisk factor modification only Primary osteoarthritis of right knee Seen by Ortho 12/17/2024 Severe recurrent major depression with psychotic features (CMS/HCC) Patient is no longer seeing a psychotherapist. She used to see one Patient denies any suicidal ideation or thoughts, Patient has crisis numbers and knows to use them if needed. Last visit she was evaluated by our [facility] clinician and referred to [facility]. They tried to contact her but were unsuccessful Essential hypertension Pt is here for a f/u BP controlled She is on a regimen of: Lisinopril 40 mg po daily, metoprolol [id number] daily and Amlodipine lowered to 5 mg po daily ( by Cardiology ). For now will continue with current medical [...] about medication compliance, counseled about weight loss. Relevant Orders Lipid Panel, Standard Comprehensive Metabolic Panel Preventative health care Routine physical exam today within normal limits Mammogram: 03/01/2023 Normal. Pt did not go have the repeat I ordered back in July, reordered again, discussed with chiropractic care the importance of having mammogram done Pap Smear: 12/29/2020 Normal. Pt would like to have pelvic exam by female provider Colonoscopy: colonoscopy at [facility] on 02/02/2012 that showed internal hemorrhoids only, 10 year f/u wasrecommended.Pt was seen by [facility] 06/09/2022 for evaluation for repeat Colonoscopy. It appears that it was never done. I have placed another referral today and discussed with patient Relevant Orders Referral to Gynecology ([facility]) Dysuria Pt with mild dysuria UA : Leuk small, neg blood, neg nit Early UTI? Given that she is Diabetic will send for Ucx and treat empirically Relevant Medications sulfamethoxazole-trimethoprim (Bactrim DS) 800-160 MG tablet Other Visit Diagnoses Breast cancer screening by mammogram Relevant Medications sulfamethoxazole-trimethoprim (Bactrim DS) 800-160 MG tablet Other Relevant Orders BI Mammogram Screening Tomosynthesis Bilateral Colon cancer screening Relevant Medications sulfamethoxazole-trimethoprim (Bactrim DS) 800-160 MG tablet Other Relevant Orders Referral to Gastroenterology No future appointments. [1] Allergies Allergen Reactions Morphine Swelling Oxycodone Rash documented in this encounter Miscellaneous Notes * Assessment & Plan Note - Dallas Romero MD - 02/03/2025 2:23 PM EDT Associated Problem(s): Dysuria Pt with mild dysuria UA : Leuk small, neg blood, neg nit Early UTI? Given that she is Diabetic will send for Ucx and treat empirically * Assessment & Plan Note - Dallas Romero MD - 02/03/2025 2:04 PM EDT Associated Problem(s): Essential hypertension Pt is here for a f/u BP controlled She is on a regimen of: Lisinopril 40 mg po daily, metoprolol [id number] daily and Amlodipine lowered to 5 mg po daily ( by Cardiology ). For now will continue with current medical [...] Plan Note - Dallas Romero MD - 02/03/2025 2:02 PM EDT Associated Problem(s): Preventative health care Routine physical exam today within normal limits Mammogram: 03/01/2023 Normal. Pt did not go have the repeat I ordered back in July, reordered again, discussed with chiropractic care the importance of having mammogram done Pap Smear: 12/29/2020 Normal. Pt would like to have pelvic exam by female provider Colonoscopy: colonoscopy at [facility] on 02/02/2012 that showed internal hemorrhoids only, 10 year f/u wasrecommended.Pt was seen by [facility] 06/09/2022 for evaluation for repeat Colonoscopy. It appears that it was never done. I have placed another referral today and discussed with patient * Assessment & Plan Note - Dallas Romero MD - 02/03/2025 1:51 PM EDT Associated Problem(s): Severe recurrent major depression with psychotic features (CMS/HCC) Patient is no longer seeing a psychotherapist. She used to see one Patient denies any suicidal ideation or thoughts, Patient has crisis numbers and knows to use them if needed. Last visit she was evaluated by our [facility] clinician and referred to [facility]. They tried to contact her but were unsuccessful * Assessment & Plan Note - Dallas Romero MD - 02/03/2025 1:50 PM EDT Associated Problem(s): Primary osteoarthritis of right knee Seen by Ortho 12/17/2024 * Assessment & Plan Note - Dallas Romero MD - 02/03/2025 1:49 PM EDT Associated Problem(s): Type 2 diabetes mellitus with neurologic complication (CMS/HCC) Patient is here for a f/u DM uncontrolled. Last seen by endocrinology 12/25/2024 Hgb A1c 02/03/2025: 10.4 from 10.9 She is on a regimen of: Tresiba up to 96 units sc in pm ( Administered by her PATIENT SCHEDULER ) and NovoLog 12 units in AM, 12 at lunch and 16 at dinner as well as Trulicity 0.75 mg q week ( lowered due to pt c/o anorexia with higher dose) and Metformin 500 mg po BID. She has a Medbox. Plan: As per Endocrinology, during last visit he stated he did not have enough data to make adjustments Microalbumin from 08/27/2024; 12 Eye Exam : [facility] and lasik 08/07/2024 No retinopathy Foot check risk of One Pt already on ASA 81 mg po daily. f/u with me in 3 months Pt was previously referred to our music educator as well, but she documented her unsuccessful efforts to help her and at this moment there was nothing else she could offer her * Assessment & Plan Note - Dallas Romero MD - 02/03/2025 1:47 PM EDT Associated Problem(s): Frequent falls Here [...] extremely poor historian Pt was evaluated at [facility] Neurology. Notes mentioned that she was [...] Pt was referred back to Neurology at [facility] and was seen 02/22/2024 by hamzah De León ELECTRICAL CONTROLS DESIGNER She ordered B12, MMA, copper, Vit E and CRP and an MRI of her brain. She was going to consider EMG or EEG if initial testing was unrevealing. She was supposed to follow up in 3 months. 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 Pt was seen by her Angle Roll Operator Dr Kruse who recommended a repeat radial cardiac cath ( doneat [facility] 09/2024) diagnostic catheterization done it seems that there is no definitive hemodynamicallysignificant aortic stenosis. Pt underwent a tilt table test that was described as unremarkable by Angle Roll Operator who last saw her 01/15/2025 and recommended aggressive reisk factor modification only * Addendum Note - Uyen Mendoza MA - 02/03/2025 1:30 PM EDTAddended by: UYEN MENDOZA on: 02/03/2025 02:30 PM Modules accepted: Orders * Addendum Note - Uyen Mendoza MA - 02/03/2025 1:30 PM EDTAddended by: UYEN MENDOZA on: 02/03/2025 03:44 PM Modules accepted: Orders documented in this encounter Plan of Treatment Scheduled Orders Name Type Priority Associated Diagnoses Orde r Schedule BI Mammogram Screening Tomosynthesis Bilateral Imaging Routine Breast cancer screening by mammogram Ordered: 02/03/2025 Lipid Panel, Standard Lab Routine Essential hypertension Ordered: 02/03/2025 Comprehensive Metabolic Panel Lab Routine Essential hypertension Ordered: 02/03/2025 Culture, Urine, Routine Microbiology Routine Dysuria Expected: 02/03/2025 (Approximate), Expires: 02/03/2026 Scheduled Referrals Name Type Priority Associated Diagnoses Order Schedule Referral to Gastroenterology Outpatient Referral Routine Colon cancer screening Expected: 02/03/2025 (Approximate), Expires: 02/03/2026 Referral to [facility]necology ([facility]) Outpatient Referral Routine Preventative health care Expected: 02/03/2025 (Approximate), Expires: 02/03/2026 documented as of this encounter Procedures Procedure Name Priority Date/Time Associated Diagnosis Comments POCT URINALYSIS DIPSTICK Routine 02/03/2025 3:43 PM EDT Dysuria POCT GLYCATED HEMOGLOBIN, TOTAL Routine 02/03/2025 1:51 PM EDT Type 2 diabetes mellitus with diabetic polyneuropathy, with long-term current use of insulin ([facility]) POCT GLUCOSE Routine 02/03/2025 1:50 PM EDT Type 2 diabetes mellitus with diabetic polyneuropathy, with long-term current use of insulin ([facility]) documented in this encounter Results * POCT Urinalysis (02/03/2025 3:43 PM EDT) Color, UA Yellow Clarity, UA Clear Glucose, UA Negative Bilirubin, UA Negative Ketones, UA Negative Spec Grav, UA 1.025 Blood, UA Negative Negative, None Detected pH, UA 5.5 Protein, UA Trace Urobilinogen, UA 0.2 Leukocytes, UA Trace Negative, Rare, Trace Comment:small Nitrite, UA Negative Negative, None Detected QC Media Lot # [id number] Lot# Expiration Date 3, Urine 02/03/2025 3:43 PM EDT us Dallas Romero MD POINT OF CARE TEST EN TER/EDIT ORDERABLES Final Result * (ABNORMAL) POCT Hgb A1c (02/03/2025 1:51 PM EDT) Hemoglobin A1C 10.4(A) 4.0 - 5.7 % QC Media Lot # [id number] Lot# Expiration Date 242,027 Blood 02/03/2025 1:51 PM EDT us Dallas Romero MD POINT OF CARE TEST EN TER/EDIT ORDERABLES Final Result * (ABNORMAL) POCT Glucose (02/03/2025 1:50 PM EDT) Glucose Blood, POC 213(A) 60 - 200 mg/dL QC Media Lot # [id number] Lot# Expiration Date 534,615 Blood Capillary blood specimen / Unknown 02/03/2025 1:50 PM EDT us Dallas Romero MD POINT OF CARE TEST EN TER/EDIT ORDERABLES Final Result documented in this encounter Visit Diagnoses Diagnosis Type 2 diabetes mellitus with diabetic polyneuropathy, with long-term current use of insulin (CMS/HCC)- Primary Frequent falls Primary osteoarthritis of right knee Severe recurrent major depression with psychotic features (CMS/HCC) Major depressive disorder, recurrent episode, severe, specified as with psychotic behavior Breast cancer screening by mammogram Essential hypertension Unspecified essential hypertension Colon cancer screening Special screening for malignant neoplasms, colon Preventative health care Routine general medical examination at a health care facility Dysuria documented in this encounter Additional Health Concerns Assessment Noted Time PHQ-9 Depression Total Score: 9 02/04/20 25 1:49 PM EDT documented as of this encounter Care Teams Air Technician Relationship Specialty Start Date End Date Dallas Menard MD [address] [place] [id number] PCP - General Internal Medicine 08/11/15 [facility] 08/15/24 documented as of this encounter
--- OUTSIDE RECORDS SUMMARY | 2025-02-03 18:48 | XMS_ITS | Encounter Summary ---
Author Organization [employer] Address [address] [facility] [address] [address] Care Team Providers Care Yard Person Name Role Phone Dallas Menard MD Primary Care Provide r Reason for Visit * Reason Comments Med Refill Encounter Details Date Type Department Care Team (Late st Contact Info) Description 07/20/2022 Refill [facility] MEDICINE [address] [place] [address] Alyce Murphy ANP [address] [place] [address] Social History Tobacco Use Types Packs/Day Years [...] documented as of this encounter Care Teams Yard Person Relationship Specialty Start Date End Date Dallas Menard MD [address] [place] [address] PCP - General Internal Medicine 08/11/15 [facility] 08/15/24 documented as of this encounter
--- OUTSIDE RECORDS SUMMARY | 2025-02-03 18:48 | XMS_ITS | Encounter Summary ---
Author Organization [employer] Address [address] [facility] [address] [place] [address] Care Team Providers Care Hematology Oncology Consultant Name Role Phone Dallas Menard MD Primary Care Provide r Encounter Details Date Type Department Care Team (Late st Contact Info) Description 08/14/2022 Orders Only [facility] PEDS [address] [place] [address] Jennifer Lopez LPN Social History Tobacco Use [...] documented as of this encounter Care Teams Hematology Oncology Consultant Relationship Specialty Start Date End Date Dallas Menard MD [address] [place] [address] PCP - General Internal Medicine 08/11/15 [facility] 08/15/24 documented as of this encounter
--- OUTSIDE RECORDS SUMMARY | 2025-02-03 18:48 | XMS_ITS | Encounter Summary ---
Author Organization [employer] Address [address] [facility] [address] [place] [address] Care Team Providers Care Resident Service Coordinator Name Role Phone Dallas Menard MD Primary Care Provide r Encounter Details Date Type Department Care Team ([facility] st Contact Info) Description 07/11/2022 Orders Only [facility] MED & PEDS [address] [place] [address] Jennifer Lopez LPN Social History Tobacco Use [...] documented as of this encounter Care Teams Resident Service Coordinator Relationship Specialty Start Date End Date Dallas Menard MD [address] [place] [address] PCP - General Internal Medicine 08/11/15 [facility] 08/15/24 documented as of this encounter
--- OUTSIDE RECORDS SUMMARY | 2025-02-03 18:48 | XMS_ITS | Encounter Summary ---
Author Organization [employer] Address [address] [facility] [address], [place] [address] Care Team Providers Care After School Coordinator Name Role Phone Dallas Menard MD Primary Care Provide r Reason for Visit * Reason Onset Date Comments Appointment Request 07/10/2024 Encounter Details Date Type Department Care Team ([facility] st Contact Info) Description 07/10/2024 Telephone [facility] MEDICINE [address] [place] [address] Dallas Menard MD [address] [place], [place] [phone] Appointment Request Social History Tobacco Use Types [...] EST Tc from pt requesting appointment , poem writer advised theres no soon appointments available as if any symptoms poem writer could assist with triage nurse as pt denied. documented in this encounter Plan of Treatment Not on file documented as of this encounter Visit Diagnoses Not on filedocumented in this encounter Additional Health Concerns Assessment Noted Time PHQ-9 Depression Total Score: 14 024 3:35 PM EDT documented as of this encounter Care Teams After School Coordinator Relationship Specialty Start Date End Date Dallas Menard MD [address] [place] [address] PCP - General Internal Medicine 08/11/15 [facility] 08/15/24 documented as of this encounter
--- OUTSIDE RECORDS SUMMARY | 2025-02-03 18:48 | XMS_ITS | Encounter Summary ---
Author Organization [employer] Address [address] [facility] 7 [place] [address] Care Team Providers Care Property Administrator Name Role Phone Dallas Menard MD Primary Care Provide r Encounter Details Date Type Department Care Team ([facility] st Contact Info) Description 10/16/[address] [facility] MEDICINE [address] [place], [place] [phone] Christie Strauss LPN Social History Tobacco Use [...] documented as of this encounter Care Teams Property Administrator Relationship Specialty Start Date End Date Dallas Menard MD [address] [place] [address] PCP - General Internal Medicine 08/11/15 [facility] 08/15/24 documented as of this encounter
--- OUTSIDE RECORDS SUMMARY | 2025-02-03 18:48 | XMS_ITS | Encounter Summary ---
Author Organization [employer] Address 75 [facility] 7 [place] [address] Care Team Providers Care Candy Dipper Hand Name Role Phone Dallas Menard MD Primary Care Provide r Encounter Details Date Type Department Care Team ([facility] st Contact Info) Description 10/03/2022 Orders Only [facility] CHC MED & PEDS [address] [place] [address] Jennifer Lopez LPN Social History Tobacco Use [...] documented as of this encounter Care Teams Candy Dipper Hand Relationship Specialty Start Date End Date Dallas Menard MD [address] [place] [address] PCP - General Internal Medicine 08/11/15 [facility] 08/15/24 documented as of this encounter
--- OUTSIDE RECORDS SUMMARY | 2025-02-03 18:49 | XMS_ITS | Encounter Summary ---
Author Organization [employer] Address [address] [place] [address] Care Team Providers Care Drug Safety Associate Name Role Phone Dallas Menard MD Primary Care Provide r Reason for Visit * Reason Onset Date Comments Appointment Request 07/31/2022 Encounter Details Date Type Department Care Team ([facility] st Contact Info) Description 07/31/2022 Telephone [facility]INE [address] [place] [address] Dallas Menard MD [address] [place] [address] Appointment Request Social History Tobacco Use Types [...] appt was wanted. Please contact pt at [phone] documented in this encounter Plan of Treatment Not on file documented as of this encounter Visit Diagnoses Not on filedocumented in this encounter Additional Health Concerns Assessment Noted Time PHQ-9 Depression Total Score: 5 05/30/19 23 11:51 AM EST documented as of this encounter Care Teams Drug Safety Associate Relationship Specialty Start Date End Date Dallas Menard MD [address] [place] [address] PCP - General Internal Medicine 08/11/15 [facility] 08/15/24 documented as of this encounter
--- OUTSIDE RECORDS SUMMARY | 2025-02-03 18:49 | XMS_ITS | Clinical Summary ---
Author Organization [facility] Address [address] [place] [address] Phone Care Team Providers Care Gold Marker Name Role Phone Dallas Butler MD Primary Care Provi blanca Encounters Date Type Department Care Team Description 11/25/2024 1:44 PM EDT - 11/25/2024 11:59 PM EDT Hospital Encounter [facility] Xray [address] [place] [address] Syncope without other cardiovascular symptoms Discharge Disposition: Home or Self Care from Last 3 Months Medical History Medical History Date Comments Diabetes mellitus type 2, co ntrolled, with complications (CMS/HCC V24, CMS/HCC V28) DX:Diabetes mellitus type 2, controlled, with complications ([facility]) Essential hypertension DX:Essent ial hypertension High cholesterol [...] 08/08/2024, 02/15/2015, 10/08/2012, Additional history exists RSV Immunization Adult Patients (1 - 1-dose 75+ series) 2041 Pneumococcal [...] Radha ging Narrative 11/25/2024 2:24 PM EDT Engine Cleaner [employer] used for the duration of the procedure. [...] increase with tilt. Conclusion: Negative tilt test. us Tab Jimenes MD [facility] PRO CEDURES Final Result from Last 3 Months Insurance MEDICAID - [place] Care Teams Gold Marker Relationship Specialty Start Date End Date Dallas Butler MD [address] [place] [id number] PCP - General Internal Medicine 11/21/24
--- OUTSIDE RECORDS SUMMARY | 2025-02-03 18:49 | XMS_ITS | Encounter Summary ---
Author Organization [employer] Address [address] [facility] 7 [place] [address] Care Team Providers Care Pet Handler Name Role Phone Dallas Menard MD Primary Care Provide r Reason for Visit * Reason Comments Med Refill Encounter Details Date Type Department Care Team (Late st Contact Info) Description 01/17/2025 Refill [facility] MEDICINE [address] [place] [address] Dallas Menard MD [address] [place], [place] [phone] Mild intermittent asthma without complication Social History [...] documented as of this encounter Care Teams Pet Handler Relationship Specialty Start Date End Date Dallas Menard MD [address] [place] [address] PCP - General Internal Medicine 08/11/15 [facility] 08/15/24 documented as of this encounter
--- OUTSIDE RECORDS SUMMARY | 2025-02-03 18:49 | XMS_ITS | Encounter Summary ---
Author Organization [employer] Address [address] [facility] [address], [place] [address] Care Team Providers Care Utility Sales And Service Manager Name Role Phone Dallas Menard MD Primary Care Provide r Reason for Visit * Reason Onset Date Comments Hospital Follow-up 08/11/2024 Encounter Details Date Type Department Care Team ([facility] st Contact Info) Description 08/11/2024 Telephone [facility] MEDICINE [address] [place] [address] Dallas Menard MD [address] [place], [place] [phone] Hospital Follow-up Social History Tobacco Use Types [...] from pt requesting a HDF appt. Hospital: [facility] Date of admission: 08/08/24 Discharge date: 08/11/24 Diagnosed: Dizziness and Abnormality in the Ecocardiogram. *Send message to [facility] Clinical Care Coordinators Contact pt at [phone] documented in this encounter Plan of Treatment Not on file documented as of this encounter Visit Diagnoses Not on filedocumented in this encounter Additional Health Concerns Assessment Noted Time PHQ-9 Depression Total Score: 13 025 8:43 AM EDT documented as of this encounter Care Teams Utility Sales And Service Manager Relationship Specialty Start Date End Date Dallas Menard MD [address] [place] [address] PCP - General Internal Medicine 08/11/15 [facility] 08/15/24 documented as of this encounter
--- OUTSIDE RECORDS SUMMARY | 2025-02-03 18:49 | XMS_ITS | Encounter Summary ---
Author Organization [employer] Address [address] [facility] 7 [place] [address] Care Team Providers Care Ball Fringe Machine Operator Name Role Phone Dallas Menard MD Primary Care Provide r Reason for Visit * Reason Comments Med Refill Encounter Details Date Type Department Care Team (Late st Contact Info) Description 05/09/2024 Refill [facility] MEDICINE [address] [place] [address] Dallas Menard MD [address] [place], [place] [phone] Chronic abdominal pain Social History Tobacco Use [...] as of this encounter Care Teams Ball Fringe Machine Operator Relationship Specialty Start Date End Date Dallas Menard MD [address] [place] [address] PCP - General Internal Medicine 08/11/15 [facility] 08/15/24 documented as of this encounter
--- OUTSIDE RECORDS SUMMARY | 2025-02-03 18:49 | XMS_ITS | Encounter Summary ---
Author Organization [employer] Address [address] [facility] 7[address] [place] [address] Care Team Providers Care Gwot Ia/Ilo Intelligence Support Name Role Phone Dallas Menard MD Primary Care Provide r Encounter Details Date Type Department Care Team ([facility] st Contact Info) Description 06/19/2022 Orders Only [facility] CHC MED & PEDS [address] [place] [address] Jennifer Lopez LPN Social History Tobacco Use [...] documented as of this encounter Care Teams Gwot Ia/Ilo Intelligence Support Relationship Specialty Start Date End Date Dallas Menard MD [address] [place] [address] PCP - General Internal Medicine 08/11/15 [facility] 08/15/24 documented as of this encounter
--- OUTSIDE RECORDS SUMMARY | 2025-02-03 18:49 | XMS_ITS | Encounter Summary ---
Author Organization [employer] Address [address] [facility] 7 [place] [address] Care Team Providers Care Bolt Sawyer Name Role Phone Dallas Menard MD Primary Care Provide r Reason for Visit * Reason Comments Med Refill Encounter Details Date Type Department Care Team (Late st Contact Info) Description 12/22/2023 Refill [facility] CHC MED & PEDS [address] [place], [place] [phone] Dallas Menard MD [address] [place] [address] Chronic abdominal pain Social History Tobacco Use [...] documented as of this encounter Care Teams Bolt Sawyer Relationship Specialty Start Date End Date Dallas Menard MD [address] [place] [address] PCP - General Internal Medicine 08/11/15 [facility] 08/15/24 documented as of this encounter
--- OUTSIDE RECORDS SUMMARY | 2025-02-03 18:49 | XMS_ITS | Encounter Summary ---
Author Organization [employer] Address [address] [facility] [address] [address] Care Team Providers Care Director Of Volunteer Services Name Role Phone Dallas Menard MD Primary Care Provide r Reason for Visit * Reason Onset Date Comments CHART PREP 02/02/2025 Encounter Details Date Type Department Care Team ([facility] st Contact Info) Description 02/02/2025 Telephone [facility] MEDICINE [address] [place] [address] Dallas Menard MD [address] [place] [address] CHART PREP Social History Tobacco Use Types Packs/Day Years [...] is your housing situation today? I have delonet zurita 07/29/[address] you [...] encounter Miscellaneous Notes * Telephone Encounter - Sommer Mendoza [place] - 02/02/2025 11:51 AM EDT Chart Prep Labs: done Images: not done Screenings: Colonoscopy , Mammogram, Eye Exam, Foot Exam, and HIV screening Vaccines due: Covid Due, Hep B Due, Flu Due, and Shingles in pharmacy Due Referrals: Completed Overdue care gaps: A1C, Glucose, PHQ9, and GAD7 documented in this encounter Plan of Treatment Not on file documented as of this encounter Visit Diagnoses Not on filedocumented in this encounter Additional Health Concerns Assessment Noted Time PHQ-9 Depression Total Score: 13 025 8:43 AM EDT documented as of this encounter Care Teams Director Of Volunteer Services Relationship Specialty Start Date End Date Dallas Menard MD [address] [place] [address] PCP - General Internal Medicine 08/11/15 [facility] 08/15/24 documented as of this encounter
--- OUTSIDE RECORDS SUMMARY | 2025-02-03 18:49 | XMS_ITS | Encounter Summary ---
Author Organization [employer] Address [address] [facility] 7t [place] [address] Care Team Providers Care Appeals Board Referee Name Role Phone Dallas Menard MD Primary Care Provide r Encounter Details Date Type Department Care Team (Latest Contact Info) Description 02/03/2025 Travel Social History Tobacco Use Types Packs/Day [...] AM EDT documented as of this encounter Functional Status * Over the past 2 weeks, how often have you been bothered by any of the following problems? Question Answer Date of Assessment Author Patient Health Questionnaire -2 Score 3 02/03/2025 1:49 PM EDT Sommer Mendoza [place] * Little interest or pleasure in doing things Answer Date of Assessment Author More than half the days 02/03/2025 1:49 PM EDT Sommer Louis [place] * Feeling down, depressed, or [...] Author Somewhat difficult 02/03/2025 1:49 PM EDT Sommer Mendoza [place] * Over the last 2 weeks, how often have you been bothered by any of the following problems? Question Answer Date of Assessment Author Feeling nervous, anxious, or on edge 1 02/03/2025 1:50 PM EDT Sommer Mendoza [place] Not being able to stop or co ntrol worrying 2 02/03/2025 1:50 PM EDT Sommer Mendoza [place] Worrying too much about diff erent things 2 02/03/2025 1:50 PM EDT Sommer Mendoza [place] Trouble relaxing 2 02/03/2025 1:50 PM EDT Sommer Louis [place] Being so restless that it is hard to sit still 1 02/03/2025 1:50 PM EDT Sommer Mendoza [place] Becoming easily annoyed or irritable 2 02/03/2025 1:50 PM EDT Sommer Mendoza [place] Feeling afraid as if somethi ng awful might happen 2 02/03/2025 1:50 PM EDT Sommer Mendoza MA KARIN-7 Total Score 12 02/03/2025 1:50 PM SPENCERT Sommer Mendoza [place] documented as of this encounter Plan of Treatment Not on file documented as of this encounter Visit Diagnoses Not on filedocumented in this encounter Additional Health Concerns Assessment Noted Time PHQ-9 Depression Total Score: 9 02/04/20 25 1:49 PM EDT documented as of this encounter Care Teams Appeals Board Referee Relationship Specialty Start Date End Date Dallas Menard MD [address] [place] [address] PCP - General Internal Medicine 08/11/15 [facility] 08/15/24 documented as of this encounter
--- OUTSIDE RECORDS SUMMARY | 2025-02-03 18:49 | XMS_ITS | Encounter Summary ---
Author Organization [employer] Address [address] [facility] 7 [place] [address] Care Team Providers Care Subway Train Driver Name Role Phone Dallas Menard MD Primary Care Provide r Encounter Details Date Type Department Care Team ([facility] st Contact Info) Description 07/20/2022 Orders Only [facility] MEDICINE [address] [place], [place] [phone] Christie Strauss LPN Social History Tobacco Use [...] documented as of this encounter Care Teams Subway Train Driver Relationship Specialty Start Date End Date Dallas Menard MD [address] [place] [address] PCP - General Internal Medicine 08/11/15 [facility] 08/15/24 documented as of this encounter
--- OUTSIDE RECORDS SUMMARY | 2025-02-03 18:49 | XMS_ITS | Encounter Summary ---
Author Organization [employer] Address [address] [facility] 7[address] [place] [address] Care Team Providers Care Drama Director Name Role Phone Dallas Menard MD Primary Care Provide r Encounter Details Date Type Department Care Team (Late st Contact Info) Description 05/22/2022 Orders Only [facility] CHC MED & PEDS [address] [place] [address] Jennifer Lopez LPN Social History Tobacco Use [...] on filedocumented in this encounter Care Teams Drama Director Relationship Specialty Start Date End Date Dallas Menard MD [address] [place] [address] PCP - General Internal Medicine 08/11/15 [facility] 08/15/24 documented as of this encounter
--- OUTSIDE RECORDS SUMMARY | 2025-02-03 18:49 | XMS_ITS | Encounter Summary ---
Author Organization [employer] Address [address] [facility] [address] [address] Care Team Providers Care Torch Shearer Name Role Phone Dallas Menard MD Primary Care Provide r Reason for Visit * Reason Onset Date Comments FYI 08/14/2024 Encounter Details Date Type Department Care Team ([facility] st Contact Info) Description 08/14/2024 Telephone [facility] MEDICINE [address] [place] [address] Dallas Menard MD [address] [place], [place] [phone] FYI Social History Tobacco Use Types Packs/Day [...] EDT Tc from [facility] calling to inform pt was [...] documented as of this encounter Care Teams Torch Shearer Relationship Specialty Start Date End Date Dallas Menard MD [address] [place] [address] PCP - General Internal Medicine 08/11/15 [facility] 08/15/24 documented as of this encounter
--- OUTSIDE RECORDS SUMMARY | 2025-02-03 18:49 | XMS_ITS | Encounter Summary ---
Author Organization [employer] Address [address] [facility] 7[place] [address] Care Team Providers Care Bin Piler Name Role Phone Dallas Menard MD Primary Care Provide r Reason for Visit * Reason Onset Date Comments Med Refill 12/27/2023 Encounter Details Date Type Department Care Team ([facility] st Contact Info) Description 12/27/2023 Telephone [facility] MEDICINE [address] [place] [address] Dallas Menard MD 230 [place], [place] [phone] Med Refill Social History Tobacco Use Types [...] 100 MG capsule To be sent to: [facility] [place], [place] - [address] [facility] documented in this encounter Plan of Treatment Not on file documented as of this encounter Visit Diagnoses Not on filedocumented in this encounter Additional Health Concerns Assessment Noted Time PHQ-9 Depression Total Score: 14 024 3:35 PM EDT documented as of this encounter Care Teams Bin Piler Relationship Specialty Start Date End Date Dallas Menard MD [address] [place] [address] PCP - General Internal Medicine 08/11/15 [facility] 08/15/24 documented as of this encounter
--- OUTSIDE RECORDS SUMMARY | 2025-02-03 18:49 | XMS_ITS | Clinical Summary ---
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 02/03/2025 1:51 PM EDT Dallas Romero MD POINT OF CARE TEST EN TER/EDIT ORDERABLES Final Result * (ABNORMAL) POCT Glucose (02/03/2025 1:50 PM EDT) Only the most recent of2 resultswithin the time period is included. Glucose Blood, POC 213(A) 60 - 200 mg/dL QC Media Lot # [id number] Lot# Expiration Date Blood Capillary blood specimen / Unknown 02/03/2025 1:50 PM EDT Dallas Romero MD POINT OF CARE TEST EN TER/EDIT ORDERABLES Final Result * (ABNORMAL) Glucose, Whole Blood (12/25/2024 9:13 AM EDT) Only the most recent of3 resultswithin the time period is included. Glucose, Whole Blood 211(H) 60 - 115 mg/dL [facility] Comment:METER #: [id number] Testing performed in the Endocrinology Department [address] , [address], [facility]. 12/25/2024 9:13 AM EDT 12/25/2024 9:18 AM EDT Generic External Data Provider LAB BLOOD ORDERAB LES Final Result [facility] [address] [place] [phone] * Albumin, Random Urine W/Creatinine (08/27/2024 9:42 AM EDT) Pathologist [facility] Creatinine, Urine 44.88 mg/dL [facility] Microalbumin Urine 12.0 mg/L [facility] Microalbum Creatinine Ratio Ur 26.7 <30 ug/mg cr [facility] Comment:Albumin/Creatinine R atio Reference Ranges: Normal: < 30 ug/mg creatinine Microalbuminuria: 30 - 300 ug/mg creatinineClinical Albuminuria: > 300 ug/mg creatinine Urine (Urine, Random) 08/27/2024 9:42 AM EDT 08/27/2024 11:09 AM EDT us Dallas Romero MD LAB URINE ORDERABLES Final Result [facility] [address] [place] [phone] * BI Mammogram Screening Tomosynthesis Bilateral (03/01/2023 12:51 PM EDT) Anatomical Region Laterality Modality Breast Bilateral Mammography 03/01/2023 12:5 1 PM EDT Narrative 03/15/2023 9:27 AM EDT [address] [place] [address] Mammography Report Signed Patient: Wendy Rivers MR#: [id number] : 1965 Acct:[id number] Age/Sex: 57 / F ADM Date: 03/01/23 Loc: [facility].MAMMO Attending Dr: Dallas Butler MD Ordering Physician: Dallas Butler MD Resu lts: 1Negative Date of Service: 03/01/23 Follow Up: 1 Year From Orig inal Mammogram Procedure(s): MM tomosynthesis screening BI Accession Number(s): [id number] cc: Dallas Butler MD EXAMINATION: MM SCREENING [...] in OV> 03/15/23 0923 DD/ 1251 TD/TT: Mastic Sprayer: Procedure Note Donotuseinterpreter, Image - 03/20/[facility]23 [facility] [address] [place], [place] [address] Mammography Report Signed Patient: Wendy Rivers#: [id number] : 1965Acct:[id number] Age/Sex: 57 / FADM Date: 03/01/23 Loc: HO.MAMMO Attending Dr: Dallas Butler MD Ordering Physician: Dallas Butler MDResu lts: 1Negative Date of Service: 03/01/23Follow Up: 1 Year From Orig inal Mammogram Procedure(s): MM tomosynthesis screening BI Accession Number(s): [id number] cc: Dallas Butler MD EXAMINATION: MM SCREENING [...] signed by Amish Chicas MD in OV> 03/15/2323 DD/ 1251 TD/TT: Mastic Sprayer: us Dallas Romero MD IMG BI PROCEDURES Mykel andrés Result - Final * (ABNORMAL) Lipid Panel with Reflex to Direct LDL (06/01/2022 9:27 AM EST) Cholesterol, Total 90 <200 mg/dL [facility] HDL Cholesterol 35(L) > OR = 50 mg/dL [facility] Triglycerides 113 <150 mg/dL [facility] [place] [facility] LDL Cholesterol 35 mg/dL (calc) [facility] Comment: Reference range: <100 Desirable range <100 mg/dL for primary prevention; <70 mg/dL for patients with CHD or diabetic patients with > or = 2 CHD risk factors. LDL-C is now calculated using the Mary Ann calculation, which is a validated novel method providing better accuracy than the Friedewald equation in the estimation of LDL-C. Cam SS et al. RONNIE. 2013;310(19): 3319-0728 (http://education.iRhythm Technologies/faq/WTA531) Chol/HDLC Ratio 2.6 <5.0 (calc) [facility] Non-HDL Cholesterol 55 <130 mg/dL (calc) [facility] Comment: For patients with diabetes plus 1 major ASCVD risk factor, treating to a non-HDL-C goal of <100 mg/dL (LDL-C of <70 mg/dL) is considered a therapeutic option. 06/01/2022 9:27 AM EST 06/01/2022 9:27 AM EST Narrative [facility] - 06/01/2022 9:35 PM EST FASTING:YES PATIENT UNABLE TO VOID; ADVISED TO RETURN FOR COLLECTION. FASTING: YES us Dallas oRmero MD LAB BLOOD ORDERABLES Final Result [address], [place] [address] [facility] [address] [facility], (N[address]2) [place] [address] * THINPREP PAP (12/29/2020 9:22 AM EDT) [...] along with historic and current clinical information. [employer] : SEE COMMENT [facility] Comment: KF, CT(ASCP) CT screening location: [address] [address] Interpretation/R esult: Negative for intraepithelial lesion or malignancy. [facility] LMP: NONE GIVEN [facility] Prev. BX: NONE GIVEN [facility] Prev. PAP: NONE GIVEN [facility] SOURCE: None given [facility] Statement Of Adequacy: SEE COMMENT [facility] Comment: Satisfactory for evaluation. Endocervical/transformation zone component absent. Age and/or menstrual status not provided 12/29/2020 9:22 AM EDT us Nancy James CNM LAB PATHOLOGY ORDERABLES Final Result Performing Organization Address City/[facility]/ZIP Co de Phone Number [facility] [address] * HPV mRNA E6/E7 (12/29/2020 9:22 AM EDT) HPV nRNA E6/E7 Not Detected Not Detected [facility] Comment: Methodology: Psychological Tests Sales Agent-Mediated Amplification This assay detects E6/E7 viral messenger RNA (mRNA) from 14 high-risk HPV types (16,18,31,33,35,39,45,51,52,56,58,59,66,68). The analytical performance characteristics of this assay have been determined by [facility]. The modifications have not been cleared or approved by the FDA. This assay has been validated pursuant to the CLIA regulations and is used for clinical purposes. For additional information, please refer to http://education.[employer]/faq/IUI439v3 (This link if provided for information/ educational purposes only.) 12/29/2020 9:22 AM EDT us Nancy James [facility] LAB BLOOD ORDERABLES Daniela l Result Performing Organization Address [facility] Co de Phone Number [facility] [address] from Last 3 Months or Most Recently Relevant to Health Maintenance Insurance [facility] C3 Care Teams Desk Director Relationship Specialty Start Date End Date Dallas Menard MD [address] [place] [address] PCP - General Internal Medicine 08/11/15 [facility] 08/15/24
--- OUTSIDE RECORDS SUMMARY | 2025-02-03 18:49 | XMS_ITS | Encounter Summary ---
Author Organization [employer] Address 75 [facility] 7 [place] [address] Care Team Providers Care Sales And Service Advisor Name Role Phone Dallas Menard MD Primary Care Provide r Reason for Visit * Reason Comments Med Refill Encounter Details Date Type Department Care Team (Late st Contact Info) Description 08/10/2023 Refill [facility] MED[facility]INE [address] [place] [address] Dallas Menard MD [address] [place], [place] [phone] Chronic abdominal pain Social History Tobacco Use [...] documented as of this encounter Care Teams Sales And Service Advisor Relationship Specialty Start Date End Date Dallas Menard MD [address] [place] [address] PCP - General Internal Medicine 08/11/15 [facility] 08/15/24 documented as of this encounter
--- OUTSIDE RECORDS SUMMARY | 2025-02-03 18:49 | XMS_ITS | Encounter Summary ---
Author Organization [employer] Address [address] [facility] [address] [place] [address] Care Team Providers Care Safety Manager Name Role Phone Dallas Menard MD Primary Care Provide r Reason for Visit * Reason Comments Med Refill Encounter Details Date Type Department Care Team (Late st Contact Info) Description 08/21/2024 Refill [facility]ICINE [address] [place] [address] Dallas Menard MD [address] [place], [place] [phone] Chronic abdominal pain Social History Tobacco Use [...] documented as of this encounter Care Teams Safety Manager Relationship Specialty Start Date End Date Dallas Menard MD [address] [place] [address] PCP - General Internal Medicine 08/11/15 [facility] 08/15/24 documented as of this encounter
== END 2025-02-03 17:20 | disposition home or self-care (01) ==
LOC: HO.LNP 17:19
PROVIDERS: Visit Provider Internal Medicine
DX: R30.0 Dysuria (principal)
CPT/HCPCS: 87086

== ENCOUNTER 2025-03-18 09:38 | Outpatient (AMB) | payer MEDICAID, SELFPAY ==
[2025-03-18 09:45] VITALS: BMI 28.3
--- NOTE | 2025-03-18 09:45 | A.OFFVIS_ITS ---
VS Expanded 03/18/25 09:45 Height 5 ft 2 in Weight 154 lb 15.759 oz BMI 28.3 Intake Visit Reasons: t2dm with polyneuropathy Allergies morphine (MORPHINE) Allergy (Intermediate, Verified 12/25/24 09:08) ITCHY, RASH oxycodone Allergy (Verified 12/25/24 09:08) Hives contras dye Allergy (Uncoded 12/25/24 09:08) [place] Nutrition Presentation Details: Pt presents for MNT f/u for T2DM Pt reports making no dietary modifications Pt Reports blood glucose fluctuate and often feels symptoms of low blood sugar therefore she treats it by having juice or cake. Pt brought glucometer and Pt is monitoring 0-1/day. (pt reports she has another monitor but left it) Pt will benefit from glucose sensor instead. Pt reports typically meal consist of B: Croissant sand with ham/cheese, coffee with diet sugar snack:crackers of fig newtons L: rice/beans , does not eat chicken, has the fruit (grapes), water or crystal light d: sorrullos with cheese and beans sauce , water or diet soda snacks on crackers, fruits BS Monitoring Most Recent Diabetes Results: Cholesterol, (<200) 166 mg/dL 12/25/24 HDL Cholesterol, (>40) 44 mg/dL 12/25/24 Triglycerides, (<150) 141 mg/dL 12/25/24 PFSH Medical History Atherosclerotic cardiovascular disease Cardiomyopathy Type 2 diabetes mellitus with diabetic polyneuropathy History of CVA (cerebrovascular accident) Overweight HLD (hyperlipidemia) DM2 (diabetes mellitus, type 2) Asthma Hypertension Depression Myocardial infarction Surgical History Hx of LASIK Hx of cataract surgery Hx of cholecystectomy Hx of section Family History Father No problems noted. Mother No problems noted. Social History Household Members: Family Housing: Apartment Do you presently have visiting nurse or other home services: No Alcohol intake: never Patient Tobacco Use Status: Former Tobacco user service: No Current occupational status: disabled Assessment & Plan Assessment & Plan (1) Type 2 diabetes mellitus with diabetic polyneuropathy: Code(s): E11.42 - Type 2 diabetes mellitus with diabetic polyneuropathy Category: Medical Plan: Wt: 65 Kg ( 02/05 ), 70 kg (04/07) Est kcal needs as per MSJ: 1400 (40% carb, 30% protein/fat) Est fluid needs as per 25-30 ml/d: 1900 Est prot per day as per 1 g/kg bw: 70-80 Recommend fiber intake : 8-10 g per day and gradually increase to 25-28 g per day for women and 35-38 g for men or as tolerated Recommend sodium intake per day : less than 2000 mg Educated patient on: ( R = reviewed V = verbalizes understanding N/R = needs review N/A = not applicable * Food sources of carbohydrate, adequate serving sizes and its role in various health conditions: R V N/R * Differences between complex carbohydrates a simple carbohydrates, role of fiber in diet: R * Lean protein sources of foods: R * Differences between types of fats and role in diet (mono on saturated fat fatty acids, saturated fatty acids, trans fats): R V N/R * Food sources of sodium in salt and healthy modifications for heart health in kidney health: R V R/V * Vitamins and minerals: R * Healthy plate method concept: R * Physical activity: Benefits a precaution: R V N/R * Hypoglycemia protocol (rule of 15): R - monitor blood sugar when having symptoms of low blood sugar and treat by having 1/2 cup of juice or 3 glucose tabs, wait 15 minutes and recheck blood sugar, repeat treament of blood sugar continues below 70. Notify your doctor if of any low blood sugar for further assessment * Dietary prevention of Hyperglycemia: R Patient Instructions: Include lean protein in you dinner meal (try protein shake and reduce starch to 1 cup portion after cooked( ex rice to 1/2 cup cooked and 1/2 cup of beans) Monitor blood sugar when having symptoms, treat low blood sugar with 1/2 cup of juice or 3 glucose tabs, wait 15 minutes and recheck blood sugar, repeat treatment if blood sugar continues below 70. Notify your doctor of any low blood sugar for further assessment Coding Level of Care Code Nutr Indiv Subseq (94133) Diagnoses Type 2 diabetes mellitus with diabetic polyneuropathy E11.42 Time Spent (min) 30
--- OUTSIDE RECORDS SUMMARY | 2025-03-18 10:48 | XMS_ITS | Clinical Summary ---
Author Organization [facility] Address [address] [place] [address] Phone Care Team Providers Care Steam Drier Tender Name Role Phone Dallas Butler MD Primary Care Provi blanca Medical History Medical History Date Comments Diabetes [...] Last Done Comments Breast Cancer Screening 1965 Colorectal Cancer Screening: Colonoscopy 1966 Diabetes: Annual Foot Exam 1976 Diabetes: Annual Retina Eye Exam 1976 Hepatitis B Vaccines (1 of 3 - 19+ 3-dose series) 1985 Cervical Cancer Screening: Pap Smear 08/20/1987 RSV Immunization Adult Patients (1 - Risk 50-74 years 1-dose series) 2016 Zoster Vaccines (1 of 2) 2016 Depression Screening 05/14/2024 Cholesterol Screening (Lipid Panel) 10/07/2024 Diabetes: Annual Urine Albumin-Creatinine Ratio (uACR) [...] to complete this topic Insurance [place] Care Teams Steam Drier Tender Relationship Specialty Start Date End Date Dallas Butler MD [address] [place] [phone] PCP - General Internal Medicine 11/21/24
== END 2025-03-18 10:21 | disposition home or self-care (01) ==
LOC: HO.ENCR 09:38
PROVIDERS: PCP Internal Medicine; Visit Provider Dietitian, Registered
DX: E11.42 Type 2 diabetes mellitus with diabetic polyneuropathy (principal)

== ENCOUNTER → 2025-03-18 09:38 | Outpatient (BNVA) | payer MEDICAID, SELFPAY | PROVIDERS: PCP Internal Medicine; Visit Provider Dietitian, Registered | DX: E11.42 Type 2 diabetes mellitus with diabetic polyneuropathy (principal) | CPT/HCPCS: 97803 ==

== ENCOUNTER 2025-03-20 10:35 | Emergency (ER) | payer MEDICAID, SELFPAY ==
--- NOTE | ~2025-03-20 | CT_ITS ---
EXAMINATION: CT HEAD WITHOUT CONTRAST CLINICAL INFORMATION: Head injury COMPARISON: July 11, 2024 TECHNIQUE: Contiguous axial imaging was performed from the skull base to vertex without intravenous administration of contrast. This CT examination was performed using dose optimization techniques as appropriate, variously including the following: *Automated exposure control *Adjustment of mA and/or kV according to patient size (this includes techniques or standardized protocols for targeted exams where dose is matched to indication/reason for exam; i.e. extremities or head) *Use of iterative reconstruction technique FINDINGS: There is no acute ischemic change. There is no intracranial hemorrhage. There is no mass-effect or midline shift. Basal cisterns and ventricles are within normal limits for age/cerebral volume. Orbits are symmetrical and unremarkable. Paranasal sinuses and mastoid air cells are pneumatized. There are no bony abnormalities. CT/CT head/brain wo IV con IMPRESSION: No acute intracranial abnormality. Electronically signed by: Jv Coello MD 03/20/2025 03:17 PM [facility]
--- NOTE | ~2025-03-20 | XR_ITS ---
EXAMINATION: XR FINGERS LEFT HISTORY: left thumb pain COMPARISON: Comparison is made with the prior examination of the left hand 05/10/2021. FINDINGS: Three views of the left thumb are submitted. Osseous mineralization is normal. There is no fracture or dislocation. There is moderate osteoarthritis of the 1st carpometacarpal joint, with joint space narrowing and osteophyte formation. The remaining joint spaces are maintained. There are vascular calcifications. XR/XR finger LT min 2V IMPRESSION: Moderate osteoarthritis of the 1st carpometacarpal joint. Electronically signed by: Trace Ching MD 03/20/2025 02:09 PM [facility]
--- NOTE | ~2025-03-20 | XR_ITS ---
EXAMINATION: XR KNEE, RIGHT CLINICAL INFORMATION: fall COMPARISON: X-ray 10/02/2023 TECHNIQUE: Four views of the right knee. FINDINGS: Alignment is anatomic. No visible acute fracture, dislocation or suspicious bony lesion. Joint spaces are maintained. No significant effusion. No abnormal soft tissue calcification. XR/XR knee RT 3V IMPRESSION: No radiographic evidence of acute osseous findings Electronically signed by: Jeff Dobbs MD 03/20/2025 02:09 PM [facility]
--- NOTE | ~2025-03-20 | XR_ITS ---
EXAMINATION: XR CHEST CLINICAL INFORMATION: sob; fall. COMPARISON: 07/03/2024. TECHNIQUE: Frontal view of the chest was obtained. FINDINGS: Mild prominence of the cardiac silhouette. The mediastinal and hilar contours appear normal. The lungs are clear bilaterally. No pneumothorax or effusion. No focal osseous or soft tissue abnormality. There are old healed bilateral rib fractures. XR/XR chest 1V IMPRESSION: No active pulmonary disease. Electronically signed by: Amish Chicas MD 03/20/2025 02:12 PM [facility]
--- NOTE | ~2025-03-20 | XR_ITS ---
EXAMINATION: XR SHOULDER, RIGHT CLINICAL INFORMATION: fall COMPARISON: X-ray 03/18/2024 TECHNIQUE: Two views of the right shoulder. FINDINGS: Bone mineralization is decreased. No visible acute fracture or dislocation. No suspicious bony lesion. Glenohumeral and acromioclavicular articulation is maintained. No abnormal soft tissue calcification. Visualized clavicle is intact. No suspicious findings in the visualized right lung. XR/XR shoulder RT min 2V IMPRESSION: No radiographic evidence of acute osseous findings. Electronically signed by: Jeff Dobbs MD 03/20/2025 02:11 PM GALILEA MIRAMONTES
[2025-03-20 10:43] VITALS: BP 174/90; BP 177/65; PULSE 73; PULSE 78; RESP 18; TEMP 36.7; O2SAT 96; BMI 27.4
--- OUTSIDE RECORDS SUMMARY | 2025-03-20 13:27 | XMS_ITS | Encounter Summary ---
Author Organization [employer] Address 75 [facility] 7 [place] [address] Care Team Providers Care Drag Car Racer Name Role Phone Dallas Menard MD Primary Care Provide r Reason for Visit * Reason Comments Med Refill Encounter Details Date Type Department Care Team (Late st Contact Info) Description 07/20/2022 Refill [facility] [address] [place] [address] Alyce Murphy ANP [address] [place], [place] [phone] Social History Tobacco Use Types Packs/Day Years [...] documented as of this encounter Care Teams Drag Car Racer Relationship Specialty Start Date End Date Dallas Menard MD [address] [place] [address] PCP - General Internal Medicine 08/11/15 [facility] 08/15/24 documented as of this encounter
--- OUTSIDE RECORDS SUMMARY | 2025-03-20 13:27 | XMS_ITS | Encounter Summary ---
Author Organization [employer] Address 75 [facility] 7t [place] [address] Care Team Providers Care Carpenter/Labor Name Role Phone Dallas Menard MD Primary Care Provide r Reason for Visit * Reason Onset Date Comments Appointment Request 07/10/2024 Encounter Details Date Type Department Care Team ([facility] st Contact Info) Description 07/10/2024 Telephone [facility] MEDICINE [address] [place] [address] Dallas Menard MD [address] [place], [place] [phone] Appointment Request Social History Tobacco Use Types [...] EST Tc from pt requesting appointment , show card writer advised theres no soon appointments available as if any symptoms show card writer could assist with triage nurse as pt denied. documented in this encounter Plan of Treatment Not on file documented as of this encounter Visit Diagnoses Not on filedocumented in this encounter Additional Health Concerns Assessment Noted Time PHQ-9 Depression Total Score: 14 024 3:35 PM EDT documented as of this encounter Care Teams Carpenter/Labor Relationship Specialty Start Date End Date Dallas Menard MD [address] [place] [phone] PCP - General Internal Medicine 08/11/15 [facility] 08/15/24 documented as of this encounter
--- OUTSIDE RECORDS SUMMARY | 2025-03-20 13:27 | XMS_ITS | Encounter Summary ---
Author Organization [employer] Address 75 [facility] 7t [place] [address] Care Team Providers Care Structural Analyst Name Role Phone Dallas Menard MD Primary Care Provide r Encounter Details Date Type Department Care Team (Late st Contact Info) Description 10/03/2022 Orders Only [facility]EDS [address] [place] [address] Jennifer Lopez LPN Social History Tobacco Use [...] documented as of this encounter Care Teams Structural Analyst Relationship Specialty Start Date End Date Dallas Menard MD [address] [place] [address] PCP - General Internal Medicine 08/11/15 [facility] 08/15/24 documented as of this encounter
--- OUTSIDE RECORDS SUMMARY | 2025-03-20 13:27 | XMS_ITS | Encounter Summary ---
Author Organization [employer] Address 75 [facility] [address] [place] [address] Care Team Providers Care Felt Pad Cutter Name Role Phone Dallas Menard MD Primary Care Provide r Encounter Details Date Type Department Care Team ([facility] st Contact Info) Description 10/16/2022 Orders Only [facility] MEDICINE [address] [place] [address] Christie Strauss LPN Social History Tobacco Use [...] documented as of this encounter Care Teams Felt Pad Cutter Relationship Specialty Start Date End Date Dallas Menard MD [address] [place] [address] PCP - General Internal Medicine 08/11/15 [facility] 08/15/24 documented as of this encounter
--- OUTSIDE RECORDS SUMMARY | 2025-03-20 13:27 | XMS_ITS | Encounter Summary ---
Author Organization [employer] Address 75 [facility] 7t [place] [address] Care Team Providers Care Animal Keeper Name Role Phone Dallas Menard MD Primary Care Provide r Encounter Details Date Type Department Care Team (Late st Contact Info) Description 08/14/2022 Orders Only [facility]EDS [address] [place] [address] Jennifer Lopez LPN Social History Tobacco Use [...] as of this encounter Care Teams Animal Keeper Relationship Specialty Start Date End Date Dallas Menard MD [address] [place] [address] PCP - General Internal Medicine 08/11/15 [facility] 08/15/24 documented as of this encounter
--- OUTSIDE RECORDS SUMMARY | 2025-03-20 13:27 | XMS_ITS | Encounter Summary ---
Author Organization [employer] Address 75 [facility] 7t [place] [address] Care Team Providers Care Home Care Assistant Name Role Phone Dallas Menard MD Primary Care Provide r Encounter Details Date Type Department Care Team (Late st Contact Info) Description 07/11/2022 Orders Only [facility] [address] [place] [address] Jennifer Lopez LPN Social History Tobacco Use [...] as of this encounter Care Teams Home Care Assistant Relationship Specialty Start Date End Date Dallas Menard MD [address] [place] [address] PCP - General Internal Medicine 08/11/15 [facility] 08/15/24 documented as of this encounter
--- OUTSIDE RECORDS SUMMARY | 2025-03-20 13:28 | XMS_ITS | Encounter Summary ---
Author Organization [employer] Address 75 [facility] 7t [place] [address] Care Team Providers Care Blindstitch Hemmer Name Role Phone Dallas Menard MD Primary Care Provide r Encounter Details Date Type Department Care Team (Late st Contact Info) Description 05/22/2022 Orders Only [facility] MED & PEDS [address] [place] [address] Jennifer Lopez LPN Social History Tobacco Use [...] on filedocumented in this encounter Care Teams Blindstitch Hemmer Relationship Specialty Start Date End Date Dallas Menard MD [address] [place] [phone] PCP - General Internal Medicine 08/11/15 [facility] 08/15/24 documented as of this encounter
--- OUTSIDE RECORDS SUMMARY | 2025-03-20 13:28 | XMS_ITS | Encounter Summary ---
Author Organization [employer] Address 75 [facility] 7t [place] [address] Care Team Providers Care Ac/Dc Rewinder Name Role Phone Dallas Menard MD Primary Care Provide r Reason for Visit * Reason Onset Date Comments Med Refill 12/27/2023 Encounter Details Date Type Department Care Team ([facility] st Contact Info) Description 12/27/2023 Telephone [facility] MEDICINE [address] [place], [place] [phone] Dallas Menard MD [address] [place], [place] [phone] Med Refill Social History Tobacco Use Types [...] 100 MG capsule To be sent to: [facility] - [place], [place] - [address] [facility] documented in this encounter Plan of Treatment Not on file documented as of this encounter Visit Diagnoses Not on filedocumented in this encounter Additional Health Concerns Assessment Noted Time PHQ-9 Depression Total Score: 14 024 3:35 PM EDT documented as of this encounter Care Teams Ac/Dc Rewinder Relationship Specialty Start Date End Date Dallas Menard MD [address] [place] [address] PCP - General Internal Medicine 08/11/15 [facility] 4/4/25 documented as of this encounter
--- OUTSIDE RECORDS SUMMARY | 2025-03-20 13:28 | XMS_ITS | Encounter Summary ---
Author Organization [employer] Address 75 [facility] 7t [place] [address] Care Team Providers Care Field Observer Name Role Phone Dallas Menard MD Primary Care Provide r Reason for Visit * Reason Comments Med Refill Encounter Details Date Type Department Care Team ([facility] st Contact Info) Description 01/17/2025 Refill [facility] MEDICINE [address] [place], [place] [phone] Dallas Menard MD [address] [place], [place] [phone] Mild intermittent asthma without complication Social History [...] as of this encounter Care Teams Field Observer Relationship Specialty Start Date End Date Dallas Menard MD [address] [place] [phone] PCP - General Internal Medicine 08/11/15 [facility] 08/15/24 documented as of this encounter
--- OUTSIDE RECORDS SUMMARY | 2025-03-20 13:28 | XMS_ITS | Encounter Summary ---
Author Organization [employer] Address [address] [facility] [address] [place] [address] Care Team Providers Care Realty Specialist Name Role Phone Dallas Menard MD Primary Care Provide r Reason for Visit * Reason Comments Med Refill Encounter Details Date Type Department Care Team ([facility] st Contact Info) Description 05/09/2024 Refill [facility] MEDICINE [address] [place], [place] [phone] Dallas Menard MD [address] [place], [place] [phone] Chronic abdominal pain Social History Tobacco Use [...] documented as of this encounter Care Teams Realty Specialist Relationship Specialty Start Date End Date Dallas Menard MD [address] [place] [id number] PCP - General Internal Medicine 08/11/15 [facility] 08/15/24 documented as of this encounter
--- OUTSIDE RECORDS SUMMARY | 2025-03-20 13:28 | XMS_ITS | Encounter Summary ---
Author Organization [employer] Address [address] [facility] [address]t [place] [address] Care Team Providers Care Investment Manager Name Role Phone Dallas Menard MD Primary Care Provide r Reason for Visit * Reason Onset Date Comments Hospital Follow-up 08/11/2024 Encounter Details Date Type Department Care Team ([facility] st Contact Info) Description 08/11/2024 Telephone [facility] MEDICINE [address] [place], [place] [phone] Dallas Menard MD [address] [place], [place] [phone] Hospital Follow-up Social History Tobacco Use Types [...] from pt requesting a HDF appt. Hospital: [facility] Date of admission: 08/08/24 Discharge date: 08/11/24 Diagnosed: Dizziness and Abnormality in the Ecocardiogram. *Send message to [facility] Care Coordinators Contact pt at [phone] documented in this encounter Plan of Treatment Not on file documented as of this encounter Visit Diagnoses Not on filedocumented in this encounter Additional Health Concerns Assessment Noted Time PHQ-9 Depression Total Score: 13 025 8:43 AM EDT documented as of this encounter Care Teams Investment Manager Relationship Specialty Start Date End Date Dallas Menard MD [address] [place] [address] PCP - General Internal Medicine 08/11/15 [facility] 08/15/24 documented as of this encounter
--- OUTSIDE RECORDS SUMMARY | 2025-03-20 13:28 | XMS_ITS | Encounter Summary ---
Author Organization [employer] Address [address] [facility] [address] [place] [address] Care Team Providers Care Skull Grinder Name Role Phone Dallas Menard MD Primary Care Provide r Reason for Visit * Reason Onset Date Comments Appointment Request 07/31/2022 Encounter Details Date Type Department Care Team ([facility] st Contact Info) Description 07/31/2022 Telephone [facility] MEDICINE [address] [place] [address] Dallas Menard MD [address] [place], [place] [phone] Appointment Request Social History Tobacco Use Types [...] appt was wanted. Please contact pt at [phone] documented in this encounter Plan of Treatment Not on file documented as of this encounter Visit Diagnoses Not on filedocumented in this encounter Additional Health Concerns Assessment Noted Time PHQ-9 Depression Total Score: 5 05/30/19 23 11:51 AM EST documented as of this encounter Care Teams Skull Grinder Relationship Specialty Start Date End Date Dallas Menard MD [address] [place] [id number] PCP - General Internal Medicine 08/11/15 [facility] 08/15/24 documented as of this encounter
--- OUTSIDE RECORDS SUMMARY | 2025-03-20 13:28 | XMS_ITS | Encounter Summary ---
Author Organization [employer] Address [address] [facility] [address] [place] [address] Care Team Providers Care Hydraulic Lift Operator Name Role Phone Dallas Menard MD Primary Care Provide r Reason for Visit * Reason Comments Med Refill Encounter Details Date Type Department Care Team ([facility] st Contact Info) Description 08/10/2023 Refill [facility] MEDICINE [address] [place], [place] [phone] Dallas Menard MD [address] [place], [place] [phone] Chronic abdominal pain Social History Tobacco Use [...] as of this encounter Care Teams Hydraulic Lift Operator Relationship Specialty Start Date End Date Dallas Menard MD [address] [place] [id number] PCP - General Internal Medicine 08/11/15 [facility] 08/15/24 documented as of this encounter
--- OUTSIDE RECORDS SUMMARY | 2025-03-20 13:28 | XMS_ITS | Encounter Summary ---
Author Organization [employer] Address [address] [facility] [address] [place] [address] Care Team Providers Care Director Of Logistics Name Role Phone Dallas Menard MD Primary Care Provide r Reason for Visit * Reason Onset Date Comments FYI 08/14/2024 Encounter Details Date Type Department Care Team ([facility] st Contact Info) Description 08/14/2024 Telephone [facility] MEDICINE [address] [place] [address] Dallas Menard MD [address] [place], [place] [phone] FY Social History Tobacco Use Types Packs/Day Years [...] [facility] calling to inform pt was unable [...] of this encounter Care Teams Director Of Logistics Relationship Specialty Start Date End Date Dallas Menard MD [address] [place] [address] PCP - General Internal Medicine 08/11/15 [facility] 08/15/24 documented as of this encounter
--- OUTSIDE RECORDS SUMMARY | 2025-03-20 13:28 | XMS_ITS | Encounter Summary ---
Author Organization [employer] Address [address] [facility] 7[address] [place] [address] Care Team Providers Care Putty Glazer Name Role Phone Dallas Menard MD Primary Care Provide r Reason for Visit * Reason Comments Med Refill Encounter Details Date Type Department Care Team ([facility] st Contact Info) Description 08/21/2024 Refill [facility] MEDICINE [address] [place], [place] [phone] Dallas Menard MD [address] [place], [place] [phone] Chronic abdominal pain Social History Tobacco Use [...] documented as of this encounter Care Teams Putty Glazer Relationship Specialty Start Date End Date Dallas Menard MD [address] [place] [address] PCP - General Internal Medicine 08/11/15 [facility] 08/15/24 documented as of this encounter
--- OUTSIDE RECORDS SUMMARY | 2025-03-20 13:28 | XMS_ITS | Clinical Summary ---
Author Organization [facility] Address [address] [place] [address] Phone Care Team Providers Care Outside Plant Supervisor Name Role Phone Dallas Butler MD Primary [...] to complete this topic Insurance MEDICAID - [place] Care Teams Outside Plant Supervisor Relationship Specialty Start Date End Date Dallas Butler MD [address] [place] [id number] PCP - General Internal Medicine 11/21/24
--- OUTSIDE RECORDS SUMMARY | 2025-03-20 13:28 | XMS_ITS | Encounter Summary ---
Author Organization [employer] Address [address] [facility] [address] [place] [address] Care Team Providers Care Microbiology Supervisor Name Role Phone Dallas Menard MD Primary Care Provide r Encounter Details Date Type Department Care Team ([facility] st Contact Info) Description 07/20/2022 Orders Only [facility] MEDICINE [address] [place] [address] Christie Strauss LPN Social History Tobacco Use [...] documented as of this encounter Care Teams Microbiology Supervisor Relationship Specialty Start Date End Date Dallas Menard MD [address] [place] [address] PCP - General Internal Medicine 08/11/15 [facility] 08/15/24 documented as of this encounter
--- OUTSIDE RECORDS SUMMARY | 2025-03-20 13:28 | XMS_ITS | Clinical Summary ---
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 given [facility] Statement Of Adequacy: SEE COMMENT [facility] Comment: Satisfactory for evaluation. Endocervical/transformation zone component absent. Age and/or menstrual status not provided 12/29/2020 9:22 AM EDT Nancy CRAVEN LAB PATHOLOGY ORDERABLES Final Result [facility] [address] * HPV mRNA E6/E7 (12/29/2020 9:22 AM EDT) HPV nRNA E6/E7 Not Detected Not Detected [facility] Comment: Methodology: Automation Engineer-Mediated Amplification This assay detects E6/E7 viral messenger RNA (mRNA) from 14 high-risk HPV types (16,18,31,33,35,39,45,51,52,56,58,59,66,68). The analytical performance characteristics of this assay have been determined by [facility]. The modifications have not been cleared or approved by the FDA. This assay has been validated pursuant to the CLIA regulations and is used for clinical purposes. For additional information, please refer to http://education.MyMundus.[employer]/faq/JMS336m0 (This link if provided for information/ educational purposes only.) 12/29/2020 9:22 AM EDT Nancy CRAVEN LAB BLOOD ORDERABLES Daniela champion Result [facility] [address] from Last 3 Months or Most Recently Relevant to Health Maintenance Insurance [address] [place], [place] [address] C3 Care Teams Boiler Mechanic Relationship Specialty Start Date End Date Dallas Menard MD [address] [place] [address] PCP - General Internal Medicine 08/11/15 [facility] 08/15/24
--- OUTSIDE RECORDS SUMMARY | 2025-03-20 13:28 | XMS_ITS | Encounter Summary ---
Author Organization [employer] Address [address] [facility] 7t [place] [address] Care Team Providers Care Engineering Administrator Name Role Phone Dallas Menard MD Primary Care Provide r Reason for Visit * Reason Comments Med Refill Encounter Details Date Type Department Care Team ([facility] st Contact Info) Description 03/19/2025 Refill [facility] MED[facility]INE [address] [place], [place] [phone] Dallas Menard MD [address] [place], [place] [phone] Chronic abdominal pain; Mild intermittent asthma without complication Social History [...] Chronic abdominal pain Abdominal pain, unspecified site Mild intermittent asthma without complication documented in this encounter Additional Health Concerns Assessment Noted Time PHQ-9 Depression Total Score: 9 02/04/20 25 1:49 PM EDT documented as of this encounter Care Teams Engineering Administrator Relationship Specialty Start Date End Date Dallas Menard MD [address] [place] [address] PCP - General Internal Medicine 08/11/15 [facility] 08/15/24 documented as of this encounter
--- OUTSIDE RECORDS SUMMARY | 2025-03-20 13:28 | XMS_ITS | Encounter Summary ---
Author Organization [employer] Address [address] [facility] 7[address] [place] [address] Care Team Providers Care Open Die Inspector Name Role Phone Dallas Menard MD Primary Care Provide r Reason for Visit * Reason Comments Med Refill Encounter Details Date Type Department Care Team (Late st Contact Info) Description 12/22/2023 Refill [facility] PEDS [address] [place] [address] Dallas Menard MD [address] [place] [address] Chronic abdominal pain Social History Tobacco Use [...] documented as of this encounter Care Teams Open Die Inspector Relationship Specialty Start Date End Date Dallas Menard MD [address] [place] [id number] PCP - General Internal Medicine 08/11/15 [facility] 08/15/24 documented as of this encounter
--- OUTSIDE RECORDS SUMMARY | 2025-03-20 13:28 | XMS_ITS | Encounter Summary ---
Author Organization [employer] Address [address] [facility] [address] [place] [address] Care Team Providers Care Gas Or Water Meter Installer Name Role Phone Dallas Menard MD Primary Care Provide r Encounter Details Date Type Department Care Team (Late st Contact Info) Description 06/19/2022 Orders Only [facility] & PEDS [address] [place] [address] Jennifer Lopez LPN Social History Tobacco Use [...] documented as of this encounter Care Teams Gas Or Water Meter Installer Relationship Specialty Start Date End Date Dallas Menard MD [address] [place] [address] PCP - General Internal Medicine 08/11/15 [facility] 08/15/24 documented as of this encounter
--- OUTSIDE RECORDS SUMMARY | 2025-03-20 13:28 | XMS_ITS | Encounter Summary ---
Author Organization [employer] Address [address] [facility] [address] [place] [address] Care Team Providers Care Medical Device Sales Name Role Phone Dallas Menard MD Primary Care Provide r Reason for Visit * Reason Onset Date Comments FYI? 03/20/2025 Encounter Details Date Type Department Care Team ([facility] st Contact Info) Description 03/20/2025 Telephone [facility] [address] [place], [place] [phone] Dallas Menard MD [address] [place], [place] [phone] FYI? Social History Tobacco Use Types Packs/Day Years [...] encounter Miscellaneous Notes * Telephone Encounter - Tammy Byers - 03/20/2025 10:38 AM EST Tc from Francoise stating that the pt was on the program an she fall. Pt is know on the way to the ER on [facility]. Contact Francoise at [phone] documented in this encounter Plan of Treatment Not on file documented as of this encounter Visit Diagnoses Not on filedocumented in this encounter Additional Health Concerns Assessment Noted Time PHQ-9 Depression Total Score: 9 02/04/20 25 1:49 PM EDT documented as of this encounter Care Teams Medical Device Sales Relationship Specialty Start Date End Date Dallas Menard MD [address] [place] [id number] PCP - General Internal Medicine 08/11/15 [facility] 08/15/24 documented as of this encounter
--- NOTE | 2025-03-20 13:55 | ED_ITS ---
HPI - Dizziness General Chief Complaint: Dizziness Stated Complaint: Dizzy, fall, +loc, bgl 473 Time Seen by Provider: 03/20/25 11:03 History of Present Illness HPI Narrative: Patient is 59 years old was sitting at a table. [place] dizzy. Then hit her head. There is question loss of consciousness. Complaining of pain to the right shoulder afterwards. Pain to the right knee also to the left thumb. Has a history of diabetes. Had a previous history of coronary artery disease. History of cardiomyopathy. Patient is from home. History of hyperlipidemia aortic stenosis. Had multiple syncopal episodes in the past. No fever no chills no chest pain or abdominal pain no nausea no vomiting no bloody stool. No travel history no history of blood clots. No fever. No chest pain associated with the symptoms. Compliance with her medications. Related Data Home Medications ?Medication ?Instructions ?Recorded ?Confirmed aspirin 81 mg tablet,delayed 81 mg PO BEDTIME 02/10/21 01/15/25 release (Adult Low Dose Aspirin) atorvastatin 80 mg tablet 80 mg PO DAILY 02/10/2109/05 gabapentin 100 mg capsule 100 mg PO BEDTIME 02/10/21 0 01/15/25 isosorbide mononitrate 30 mg 30 mg PO QAM 02/10/2109/05 tablet,extended release 24 hr lisinopril 40 mg tablet 40 mg PO DAILY 02/10/2109/05 loratadine 10 mg tablet 10 mg PO DAILY 02/10/2109/05 omeprazole 40 mg capsule,delayed 40 mg PO DAILY 01/15/25 release cyanocobalamin (vitamin B-12) 1,000 mcg PO QAM 5 01/15/25 1,000 mcg tablet lidocaine 5 % topical patch 1 patch topical DAILY PRN Pain 07/12/24 01/15/25 (Lidoderm) metformin 500 mg tablet,extended 1,000 mg PO DAILY@170 0 07/12/24 01/15/25 release 24 hr metoprolol tartrate 100 mg tablet 100 mg PO DAILY 06/0701/15/25 mometasone 200 mcg/actuation HFA 2 puff inhalation BID 07/12/24 01/15/25 aerosol inhaler (Asmanex HFA) blood sugar diagnostic (FreeStyle 11/19/24 01/15/25 Lite Strips) blood-glucose meter (FreeStyle 11/19/24 01/15/25 Lite Meter kit) lancets 28 gauge (FreeStyle 11/19/24 01/15/25 Lancets) Previous Rx's ?Medication ?Instructions ?Recorded acetaminophen 325 mg capsule 650 mg (2 x 325 mg) PO Q6 H PRN 01/14/21 pain #20 caps transport belt #1 ea 08/15/23 meclizine 25 mg tablet 25 mg PO TID PRN dizziness # 30 tabs 11/27/23 docusate sodium 100 mg capsule 100 mg PO BEDTIME #90 c aps 06/23/24 albuterol sulfate 2.5 mg/3 mL 2.5 mg (3 mL) inhalation Q4H PRN 07/15/24 (0.083 %) solution for nebulization shortness of breat h or wheezing #180 mL dulaglutide 1.5 mg/0.5 mL 1.5 mg (0.5 mL) subcut QWEEK 08/01/24 subcutaneous pen injector days #2 mL (Trulicity) insulin aspart U-100 100 unit/mL 12 unit (0.12 mL) sub cut TID 30 08/01/24 (3 mL) subcutaneous pen (Novolog days #12 mL FlexPen U-100 Insulin aspart) insulin degludec 200 unit/mL (3 100 unit (0.5 mL) subc ut DAILY 08/01/24 mL) subcutaneous pen (Tresiba days #15 mL FlexTouch U-200 insulin) celecoxib 200 mg capsule 200 mg PO BID PRN for pain # 60 caps 01/09/25 amlodipine 5 mg tablet 5 mg PO QAM #90 tabs 5 blood-glucose sensor (FreeStyle #2 ea 03/18/25 Angélica 3 Sensor device) blood-glucose,band tumbler,cont #1 ea 03/18/25 (FreeStyle Angélica 3 [place]) Allergies Allergy/AdvReac Type Severity Reaction Status Date / Time morphine (MORPHINE) Allergy Intermediate ITCHY, RASH Verified 03/20/25 10:46 oxycodone Allergy Hives Verified 03/20/25 10:46 contras dye Allergy Flushing Uncoded 12/25/24 09:08 Review of Systems 2 Review of Systems: Positive syncopal episode Yes all other systems are reviewed and are negative [facility] Past Medical History Medical History Atherosclerotic cardiovascular disease Cardiomyopathy Type 2 diabetes mellitus with diabetic polyneuropathy History of CVA (cerebrovascular accident) Overweight HLD (hyperlipidemia) DM2 (diabetes mellitus, type 2) Asthma Hypertension Depression Myocardial infarction Surgical History Hx of LASIK Hx of cataract surgery Hx of cholecystectomy Hx of section Family History Family History Father No problems noted. Mother No problems noted. Social History Social History Household Members: Family Housing: Apartment Do you presently have visiting nurse or other home services: No Alcohol intake: never Patient Tobacco Use Status: Former Tobacco user Advance Directives: No Advance Directives Information Provided: Yes service: No Current occupational status: disabled Physical Exam 2 Exam: Exam: Appearance: Alert. Oriented X3. No acute distress. Eyes: Pupils equal, round and reactive to light. ENT: Pharynx normal. Neck: Normal inspection. Neck supple. No lymph nodes noted. No crepitus CVS: Normal heart rate and rhythm. Pulses normal. Normal S1 and S2 Respiratory: No respiratory distress. Breath sounds normal. No Wheezing. No rales Abdomen: Soft and nontender. No rigidity. No distention. good BS x4 Skin: Skin warm and dry. Normal skin color. Normal skin turgor. Extremities: No lower extremity edema. Neurovascular intact to all extremities. No Lacerations. No Rash Neuro: Oriented X 3. No motor deficit. No sensory deficit. Moving all extermities. No slurred speech Vital Signs: Vital Signs: Last Vital Signs Temp 98.1 F 03/20/25 10:43 Pulse 82 03/20/25 15:22 Resp 17 03/20/25 15:18 BP 193/97 H 03/20/25 15:22 Pulse Ox 96 03/20/25 15:18 O2 Del Method Room Air 03/20/25 15:18 BMI result Body Mass Index 27.4 Medications Administered Discontinued Medications Generic Name Dose Route Start Last Admin Trade Name Freq PRN Reason Stop Dose Admin Sodium Chloride 1,000 mls @ 999 mls/hr 03/20/25 14:00 03/20/25 16:16 Ns IV 03/20/25 15:00 Infused .Q1H1M ADRYAN Infusion Medical Decision Making Medical Decision Making [facility] Narrative: Patient is 59 years old presents today with having syncopal episode. Has a history of the same. Two sets of cardiac enzymes are about the same in the 20s. Patient is CT head was grossly negative by my interpretation no evidence of bleeding. X-ray of the finger x-ray of the shoulder x-ray of the knee by my interpretation were all negative. Patient had a D-dimer that was 288. When age adjusted it is negative. Patient is 59 years old. No acute distress. IV fluids given. Hemoglobin is 13 there is no evidence for anemia. Patient to be discharged home. In stable condition. Kidney function is normal. Sugar is controlled at 290. My interpretation patient's EKG showed a sinus rhythm heart rate is 75 CT QRS QTC within normal limits there is no change when compared to previous EKG. Differential Diagnosis Differential Diagnoses: The differential diagnosis associated with the presentation includes Syncope, PE, pneumonia, anemia Admission/Observation Consideration of admission/observation: Escalation of care including admission/observation considered Lab Data [facility] Lab Attestation statement: I reviewed the patient's lab results. 03/20/25 14:16 03/20/25 14:16 Labs: Lab Results 03/20/25 03/20/25 03/20/25 Range/Units 14:08 14:16 17:02 WBC 7.3 (4.8-10.8) X10*3/uL RBC 4.82 (4.20-5.50) X10*6/uL Hgb 13.0 (12.0-16.0) g/dl Hct 39.5 (37.0-47.0) % MCV 82.0 (80.0-98.0) fL MCH 27.0 (27.0-33.0) pg MCHC 32.9 (31.0-35.0) g/dl RDW 12.4 (11.0-16.0) % Plt Count 321 D (160-400) X10*3/uL MPV 10.6 (9.4-12.3) fL Immature Gran % (Auto) 0.3 (0.0-0.4) % Neut % (Auto) 52.6 (45-73) % Lymph % (Auto) 38.2 (20-40) % Clinch % (Auto) 6.3 (2-11) % Eos % (Auto) 2.2 (0-4) % Baso % (Auto) 0.4 (0-2) % Lymph # (Auto) 2.8 (1.2-4.9) X10*3/uL Clinch # (Auto) 0.5 (0.1-1.2) X10*3/uL Eos # (Auto) 0.2 (0.0-0.4) X10*3/uL Baso # (Auto) 0.0 (0.0-0.2) X10*3/uL Abs Immat Gran (auto) 0.02 (0.00-0.03) X10*3/uL Absolute Neuts (auto) 3.8 (2.0-8.3) x10*3/uL Absolute Nucleated RBC 0.000 (0.0-0.012) X10*3/uL Nucleated RBC % (auto) 0.0 (0.0-0.2) /100WBC D-Dimer High Sensitivty 288 NG/ML Sodium 137 (135-145) mmol/L Potassium 4.2 (3.3-5.1) mmol/L Chloride 103 (96-108) mmol/L Carbon Dioxide 27 (22-29) mmol/L Anion Gap 11 L (12-20) BUN 11 (9-16) mg/dL Creatinine 0.53 (0.5-1.4) mg/dL Estim Creat Clear Calc 104.5 Estimated GFR > 60 Random Glucose 290 H (60-115) mg/dL Calcium 9.7 (8.4-10.2) mg/dL Total Bilirubin 1.2 H (0.0-1.0) mg/dL Direct Bilirubin 0.4 (0.0-0.5) mg/dL AST 17 (5-31) U/L ALT 17 (0-31) U/L Alkaline Phosphatase 86 (39-117) U/L Troponin I High Sens 21.8 H 27.6 H (<3.5-17.0) ng/L Total Protein 7.5 (6.5-8.0) g/dL Albumin 4.5 (3.5-5.0) g/dL Urine Color Yellow Urine Appearance Clear Urine pH 5.5 (5.0-9.0) Ur Specific [employer] >= 1.030 H (1.005-1.025) Urine Protein Negative (Neg-Trace) mg/dL Urine Glucose (UA) >=1000 H (Negative) mg/dL Urine Ketones Negative (Negative) mg/dL Urine Blood Negative (Negative) Urine Nitrite Negative (Negative) Ur Leukocyte Esterase Negative (Negative) Urine RBC 0-2 (0-2) /HPF Urine WBC 0-5 (0-5) /HPF Ur Squamous Epith Cells 0-2 (0-2) /HPF Urine Bacteria Trace (None Seen) Hyaline Casts 0-2 (0-2) /LPF Independent Interpretation I performed an independent interpretation of an: EKG and CT Scan (CT head is negative) External Record Review External record reviewed: Inpatient record Chronic Conditions Patient?s care impacted by: Diabetes and Hypertension Social Determinants Patient?s care significantly limited by Social Determinants of Health including: Problems related to primary support group Discharge Plan Discharge Clinical Impression: DM2 (diabetes mellitus, type 2), Syncope Patient Disposition: Home, Self-Care Instructions: Syncope (DC) Prescriptions: No Action docusate sodium 100 mg capsule 100 mg PO BEDTIME Qty: 90 3RF celecoxib 200 mg capsule 200 mg PO BID PRN (Reason: for pain) Qty: 60 3RF amlodipine 5 mg tablet 5 mg PO QAM Qty: 90 3RF (DME) FreeStyle Angélica 3 Sensor Device See Rx Instructions .ROUTE .MEDSUPPLY Qty: 2 11RF Rx Instructions: As directed (DME) FreeStyle Angélica 3 [place] Misc See Rx Instructions .ROUTE .MEDSUPPLY Qty: 1 0RF Rx Instructions: As directed acetaminophen 325 mg capsule 650 mg PO Q6H PRN (Reason: pain) Qty: 20 0RF meclizine 25 mg tablet 25 mg PO TID PRN (Reason: dizziness) Qty: 30 0RF cyanocobalamin (vitamin B-12) 1,000 mcg tablet 1,000 mcg PO QAM Asmanex HFA 200 mcg/actuation HFA aerosol inhaler 2 puff INHALATION BID metoprolol tartrate 100 mg tablet 100 mg PO DAILY lidocaine [Lidoderm] 5 % adhesive patch,medicated 1 patch topical DAILY PRN (Reason: Pain) Rx Instructions: leave on most painful area for up to 12 hrs metformin 500 mg Tablet Extended Release 24 Hr 1,000 mg PO DAILY@1700 albuterol sulfate 2.5 mg /3 mL (0.083 %) solution for nebulization 2.5 mg inhalation Q4H PRN (Reason: shortness of breath or wheezing) Qty: 180 0RF atorvastatin 80 mg tablet 80 mg PO DAILY isosorbide mononitrate 30 mg tablet extended release 24 hr 30 mg PO QAM lisinopril 40 mg tablet 40 mg PO DAILY loratadine 10 mg tablet 10 mg PO DAILY aspirin [Adult Low Dose Aspirin] 81 mg tablet,delayed release (DR/EC) 81 mg PO BEDTIME omeprazole 40 mg capsule,delayed release(DR/EC) 40 mg PO DAILY gabapentin 100 mg capsule 100 mg PO BEDTIME Trulicity 1.5 mg/0.5 mL pen injector 1.5 mg subcut QWEEK 28 Days Qty: 2 11RF insulin degludec [Tresiba FlexTouch U-200] 200 unit/mL (3 mL) insulin pen 100 unit subcut DAILY 30 Days Qty: 15 11RF insulin aspart U-100 [Novolog FlexPen U-100 Insulin] 100 unit/mL (3 mL) insulin pen 12 unit subcut TID 30 Days Qty: 12 11RF (DME) FreeStyle Lite Strips Strip See Rx Instructions .Route Rx Instructions: As directed (DME) blood-glucose meter [FreeStyle Lite Meter] Kit See Rx Instructions .Route Rx Instructions: As directed (DME) lancets [FreeStyle Lancets] 28 gauge misc See Rx Instructions .Route Rx Instructions: As directed (DME) transport belt See Rx Instructions .Route .MEDSUPPLY Qty: 1 0RF Rx Instructions: As directed Referrals: Dallas Butler MD [Primary Care Provider, Medical] - 03/23/25 Fabio Andrade MD [Physician, Cardiology] - 03/23/25 Print Language: Salvadorean
[2025-03-20 14:24] LABS: MANUAL DIFF FLAG NO
[2025-03-20 14:28] LABS: Appearance Urine Clear; Glucose Urine UA >=1000 mg/dL (Negative); PH 5.5 (5.0-9.0); Specific Gravity - Urine >= 1.030 (1.005-1.025); UMIC TRIGGER UACC YES
[2025-03-20 14:32] LABS: Hematocrit 39.5 % (37.0-47.0); Hemoglobin 13.0 g/dl (12.0-16.0); Imm Gran Abs Auto 0.02 X10*3/uL (0.00-0.03); Imm Gran Pct Auto 0.3 % (0.0-0.4); Lymphocytes Absolute Auto 2.8 X10*3/uL (1.2-4.9); Mean Corpuscular HGB Conc 32.9 g/dl (31.0-35.0); Mean Corpuscular Hemoglobin 27.0 pg (27.0-33.0); Mean Corpuscular Volume 82.0 fL (80.0-98.0); NRBC Abs Auto 0.000 X10*3/uL (0.0-0.012); NRBC Pct Auto 0.0 /100WBC (0.0-0.2); Platelet Count 321 X10*3/uL (160-400); Red Blood Count 4.82 X10*6/uL (4.20-5.50); White Blood Count 7.3 X10*3/uL (4.8-10.8)
[2025-03-20 14:37] LABS: D Dimer High Sensitivity 288 NG/ML
[2025-03-20 14:42] LABS: Alanine Aminotransferase 17 U/L (0-31); Albumin Level 4.5 g/dL (3.5-5.0); Alkaline Phosphatase 86 U/L (39-117); Anion Gap 11 (12-20); Aspartate Amino Transferase 17 U/L (5-31); Blood Urea Nitrogen 11 mg/dL (9-16); Calcium 9.7 mg/dL (8.4-10.2); Carbon Dioxide 27 mmol/L (22-29); Chloride 103 mmol/L (96-108); Creatinine Clr Calc Pharmacy 104.5; Estimated Glomerular Filt Rate > 60; Potassium 4.2 mmol/L (3.3-5.1); Sodium 137 mmol/L (135-145); Total Protein 7.5 g/dL (6.5-8.0)
[2025-03-20 14:49] LABS: Troponin-I High Sensitivity 21.8 ng/L (<3.5-17.0)
[2025-03-20 15:18] VITALS: BP 181/71; PULSE 81; RESP 17; O2SAT 96
[2025-03-20 15:19] VITALS: BP 175/92; PULSE 82
[2025-03-20 15:22] VITALS: BP 179/84; BP 193/97; PULSE 75; PULSE 82
[2025-03-20 17:29] LABS: Troponin-I High Sensitivity 27.6 ng/L (<3.5-17.0)
--- NOTE | 2025-03-20 17:36 | ECG_ITS ---
Test Reason : SYNCOPE Blood Pressure : */* mmHG Vent. Rate : 76 BPM Atrial Rate : 76 BPM P-R Int : 244 ms QRS Dur : 86 ms QT Int : 406 ms P-R-T Axes : 52 -11 26 degrees QTcB Int : 456 ms Sinus rhythm with 1st degree A-V block with Premature atrial complexes Moderate voltage criteria for LVH, may be normal variant ( R in aVL , Wu product ) Possible Anterior infarct , age undetermined Abnormal ECG When compared with ECG of 11-Jul-2024 21:12, Vent. rate has decreased by 44 bpm Nonspecific T wave abnormality no longer evident in Lateral leads Referred By: Misty Mccracken Electronically Signed By: Fabio Andrade
[2025-03-20 18:19] VITALS: BP 193/97; PULSE 82; RESP 18; TEMP 36.8; O2SAT 98
== END 2025-03-20 18:20 | disposition home or self-care (01) ==
PROVIDERS: Emergency Provider Emergency Medicine Emergency Medical Services; PCP Internal Medicine
DX: R55 Syncope and collapse (principal); R42 Dizziness and giddiness; E11.9 Type 2 diabetes mellitus without complications; M25.511 Pain in right shoulder; R07.89 Other chest pain; M79.645 Pain in left finger(s); M25.561 Pain in right knee; R11.0 Nausea; Z79.4 Long term (current) use of insulin; Z79.899 Other long term (current) drug therapy; Z87.891 Personal history of nicotine dependence
CPT/HCPCS: 36415; 70450; 71045; 73030; 73140; 73562; 80048; 80076; 81001; 84484; 85025; 85379; 93005; 96360; 99284; 99285

== ENCOUNTER → 2025-03-20 13:51 | Outpatient (BNV) | payer MEDICAID, SELFPAY | PROVIDERS: Emergency Provider Emergency Medicine Emergency Medical Services; PCP Internal Medicine; Visit Provider Radiology Diagnostic Radiology | DX: S09.90XA Unspecified injury of head, initial encounter (principal); Z04.3 Encounter for examination and observation following other accident; R06.02 Shortness of breath; M18.12 Unilateral primary osteoarthritis of first carpometacarpal joint, left hand | CPT/HCPCS: 70450; 71045; 73030; 73140; 73562 ==

== ENCOUNTER → 2025-03-20 17:36 | Outpatient (BNV) | payer MEDICAID, SELFPAY | PROVIDERS: Emergency Provider Emergency Medicine Emergency Medical Services; PCP Internal Medicine; Visit Provider Internal Medicine Cardiovascular Disease | DX: I49.1 Atrial premature depolarization (principal); I44.0 Atrioventricular block, first degree | CPT/HCPCS: 93010 ==

== ENCOUNTER 2025-04-05 13:52 | Emergency (ER) | payer MEDICAID, SELFPAY ==
--- NOTE | ~2025-04-05 | XR_ITS ---
CLINICAL HISTORY: fall, pain, dizziness 2 view chest x-ray Comparison: CR/SR - XR CHEST 1 VIEW - 03/20/25 14:05 EST Findings: No consolidation or effusion. Normal size heart. No acute fracture. IMPRESSION: No acute cardiopulmonary findings. This document has been electronically signed by: Rudy Simpson MD on 04/05/2025 16:03:23
--- NOTE | ~2025-04-05 | CT_ITS ---
CLINICAL HISTORY: fall, pain, dizziness CT head without contrast Comparison: CT/REG/SR - CT HEAD WITHOUT IV CONTRAST - 03/20/25 15:[address]/SR - CT HEAD/BRAIN WO IV CON - 07/11/24 23:35 EST Findings: Motion artifact mildly limits evaluation. No intra-axial mass, midline shift, hydrocephalus, or acute hemorrhage. No significant atrophy-like change or white matter disease. The visualized paranasal sinuses and mastoid air cells are normal. The orbits are unremarkable. No skull fracture. IMPRESSION: No acute intracranial findings. This document has been electronically signed by: Rudy Simpson MD on 04/05/2025 16:49:00
--- NOTE | ~2025-04-05 | CT_ITS ---
CLINICAL HISTORY: low back pain CT lumbar spine without contrast Comparison: MR/SR - MR LUMBAR SPINE WITHOUT IV CONTRAST - 03/13/23 13:59 EDT Findings: Vertebral alignment is within normal limits. No acute fractures or dislocations. Mild multilevel degenerative changes without findings of high-grade canal or neural foraminal stenosis. Normal visualized abdominal contents. IMPRESSION: No acute lumbar spine findings. Stable mild multilevel degenerative changes. This document has been electronically signed by: Rudy Simpson MD on 04/05/2025 16:56:31
--- NOTE | ~2025-04-05 | CT_ITS ---
CLINICAL HISTORY: fall, pain, dizziness CT cervical spine without contrast Comparison: CT/SR - CT CERVICAL SPINE WO IV CON - 07/11/24 23:35 EST Findings: Vertebral alignment is within normal limits. No significant degenerative change. No acute fractures or dislocations. No acute findings on limited view of the intracranial contents. No cervical fluid collections or masses. No consolidation or effusion at the lung apices. IMPRESSION: No acute cervical spine findings. This document has been electronically signed by: Rudy Simpson MD on 04/05/2025 16:50:38
--- NOTE | ~2025-04-05 | CT_ITS ---
CLINICAL HISTORY: L mid axillary rib pain tender CT chest without contrast Comparison: CR - XR CHEST 2V - 04/05/25 15:11 EST Findings: The heart size is normal. The visualized thyroid and mediastinum are unremarkable. The lungs are clear. The upper abdomen is unremarkable. No acute fractures. IMPRESSION: 1. Unremarkable chest CT. This document has been electronically signed by: Zuleyka Betancourt MD on 04/05/2025 21:00:48
[2025-04-05 14:37] VITALS: BP 129/72; PULSE 67; RESP 16; TEMP 36.4; O2SAT 97; BMI 25.4
--- NOTE | 2025-04-05 14:42 | ED.GENADULT ---
HPI - General Adult General Chief complaint: Dizziness Stated complaint: L rib pain, fall in tub Time Seen by Provider: 04/05/25 18:56 History of Present Illness ED Provider: Ashu Jefferson MD HPI narrative: Date & Time: 2025-04-06 Patient Name: : MRN: Author / Clinician: Ashu Jefferson MD Chief Complaint Dizziness and left flank / low back pain after fall. History of Present Illness The patient reports feeling ?tough, really? with an episode of dizziness after rising from the toilet earlier today. During this episode, the patient ?went down,? striking the left side of the ribs against an external surface. Since the fall, the patient endorses pain in the left flank and left low back that worsens a little bit with breathing. Past medical history noted by the patient includes diabetes, chronic arthritis, hypertension, and hyperlipidemia. Denies history of smoking. Review of Systems ? General: Positive for dizziness. ? Musculoskeletal: Positive for left flank and low back pain. ? Respiratory: Pain exacerbated a little bit by deep inspiration. No additional systems reviewed during this encounter. Emergency Department Course Assessment & Plan Diagnosis: 1. Dizziness / near-syncope episode. 2. Left flank and low back pain after fall. Plan: Disposition Past Medical History ? Diabetes ? Chronic arthritis ? Hypertension ? Hyperlipidemia Social History ? Smoking: Never smoker. Related Data Home Medications ?Medication ?Instructions ?Recorded ?Confirmed aspirin 81 mg tablet,delayed 81 mg PO BEDTIME 02/10/21 01/15/25 release (Adult Low Dose Aspirin) atorvastatin 80 mg tablet 80 mg PO DAILY 02/10/21 01/15/25 gabapentin 100 mg capsule 100 mg PO BEDTIME 02/10/21 01/15/25 isosorbide mononitrate 30 mg 30 mg PO QAM 02/10/21 01/15/25 tablet,extended release 24 hr lisinopril 40 mg tablet 40 mg PO DAILY 02/10/21 01/15/25 loratadine 10 mg tablet 10 mg PO DAILY 02/10/21 01/15/25 omeprazole 40 mg capsule,delayed 40 mg PO DAILY 02/10/21 01/15/25 release cyanocobalamin (vitamin B-12) 1,000 mcg PO QAM 07/12/24 01/15/25 1,000 mcg tablet lidocaine 5 % topical patch 1 patch topical DAILY PRN Pain 07/12/24 01/15/25 (Lidoderm) metformin 500 mg tablet,extended 1,000 mg PO DAILY@1700 07/12/24 01/15/25 release 24 hr metoprolol tartrate 100 mg tablet 100 mg PO DAILY 07/12/24 01/15/25 mometasone 200 mcg/actuation HFA 2 puff inhalation BID 07/12/24 01/15/25 aerosol inhaler (Asmanex HFA) blood sugar diagnostic (FreeStyle 11/19/24 01/15/25 Lite Strips) blood-glucose meter (FreeStyle 11/19/24 01/15/25 Lite Meter kit) lancets 28 gauge (FreeStyle 11/19/24 01/15/25 Lancets) Previous Rx's ?Medication ?Instructions ?Recorded acetaminophen 325 mg capsule 650 mg (2 x 325 mg) PO Q6H PRN 01/14/21 pain #20 caps transport belt #1 ea 08/15/23 meclizine 25 mg tablet 25 mg PO TID PRN dizziness #30 tabs 11/27/23 docusate sodium 100 mg capsule 100 mg PO BEDTIME #90 caps 06/23/24 albuterol sulfate 2.5 mg/3 mL 2.5 mg (3 mL) inhalation Q4H PRN 07/15/24 (0.083 %) solution for nebulization shortness of breath or wheezing #180 mL dulaglutide 1.5 mg/0.5 mL 1.5 mg (0.5 mL) subcut QWEEK 28 08/01/24 subcutaneous pen injector days #2 mL (Trulicity) insulin aspart U-100 100 unit/mL 12 unit (0.12 mL) subcut TID 30 08/01/24 (3 mL) subcutaneous pen (Novolog days #12 mL FlexPen U-100 Insulin aspart) insulin degludec 200 unit/mL (3 100 unit (0.5 mL) subcut DAILY 30 08/01/24 mL) subcutaneous pen (Tresiba days #15 mL FlexTouch U-200 insulin) celecoxib 200 mg capsule 200 mg PO BID PRN for pain #60 caps 01/09/25 amlodipine 5 mg tablet 5 mg PO QAM #90 tabs 01/19/25 blood-glucose sensor (FreeStyle #2 ea 03/18/25 Angélica 3 Sensor device) blood-glucose,weight calculator,cont #1 ea 03/18/25 (FreeStyle Angélica 3 Vernonia) methocarbamol 750 mg tablet 750 mg PO Q8H PRN spasm #10 tabs 04/05/25 Allergies Allergy/AdvReac Type Severity Reaction Status Date / Time morphine (MORPHINE) Allergy Intermediate ITCHY, RASH Verified 04/05/25 14:38 oxycodone Allergy Hives Verified 04/05/25 14:38 contras dye Allergy Flushing Uncoded 12/25/24 09:08 PMFSH Past Medical History Medical History Atherosclerotic cardiovascular disease Cardiomyopathy Type 2 diabetes mellitus with diabetic polyneuropathy History of CVA (cerebrovascular accident) Overweight HLD (hyperlipidemia) DM2 (diabetes mellitus, type 2) Asthma Hypertension Depression Myocardial infarction Surgical History Hx of LASIK Hx of cataract surgery Hx of cholecystectomy Hx of section Family History Family History Father No problems noted. Mother No problems noted. Social History Social History Household Members: Family Housing: Apartment Do you presently have visiting nurse or other home services: No Alcohol intake: never Patient Tobacco Use Status: Former Tobacco user Advance Directives: No Advance Directives Information Provided: No service: No Current occupational status: disabled Physical Exam ED Exam Exam: Primary Survey: GCS: 15 Airway: Intact airway Breathing: Spontaneous respirations with bilateral breath sounds Circulation: Palpable bilateral carotid, brachial, femoral DP pulses with good skin color and distal perfusion. Disability: No gross paresis of the extremities or obvious focal neuro deficit. E FAST Ultrasound: NA Secondary Survey GENERAL: Well appearing. No apparent distress. Alert. HEAD: The head is atraumatic, without swelling or ecchymosis of the face or behind the ears, including the periorbital area. There is no tenderness to face, and the oral and nasal mucosa are nonbloody. Dentition is intact. The TMs are without hemotympanum. NECK: Cervical collar in place. There is no midline cervical neck tenderness or stepoffs. The patient denies any numbness, tingling, or weakness of the extremities. ?After CT/clinical clearance; Later examination after collar removal: The patient is able to range their neck completely without midline cervical pain, numbness, tingling, or weakness. EYES: Normal to inspection. Sclera non-icteric. EOMI, Pupils grossly symmetric/reactive. ENMT: External nose normal. No facial depression, gross hemotympanum, epistaxis. RESPIRATORY: Respiratory effort normal. Lungs clear to auscultation bilaterally. CARDIOVASCULAR: Regular rate. Normal rhythm. No murmur. No rubs. GI: Soft, non-tender, non-distended. No rebound or guarding. No masses palpable. No hepatosplenomegaly. No bruising. MSK: Chest Wall: Mild tenderness all along the left mid axillary chest wall no bruising crepitus mild tenderness left lumbosacral region Back: No ecchymosis, no abrasions or other external signs of trauma, no midline spinal tenderness. Upper Extremities: Atraumatic, no swelling, deformity, focal tenderness, +FROM of all joints. Lower Extremities: Atraumatic, no swelling, deformity, focal tenderness, +FROM of all joints. SKIN: No jaundice. No abrasions, lacerations, or ecchymosis. NEUROLOGICAL: Alert. Comprehensive Neuro exam: Face symmetric, tongue midline, strong symmetric eye closure intact strong face deviation and shoulder shrug. Sensation intact to light touch throughout 5 out of 5 strength in bilateral upper extremities, 5 and 5 strength in lower extremities bilaterally? PSYCHIATRIC: Alert. Appearance appropriate for situation. Attitude cooperative. Vital Signs: Vital Signs - 24 hr 04/05/25 14:37 04/05/25 22:15 04/05/25 22:17 Temperature 97.5 F 97.5 F Pulse Rate 67 67 67 Respiratory Rate 16 16 18 Blood Pressure 129/72 129/72 129/72 Pulse Oximetry 97 97 93 Oxygen Delivery Method Room Air Room Air Room Air BMI result Body Mass Index 25.4 Course Course Course Narrative: Rapid medical examination performed in triage by Amarilis Bryant PA-C: Patient is a 59 year old assigned female at presenting to the emergency department with dizziness and a fall. Detailed physical exam and review of systems are deferred to the nutrition teacher. EKG, labs, imaging, and swabs ordered. Patient placed back in the waiting room pending room availability and results. Medications Administered Discontinued Medications Generic Name Dose Route Start Last Admin Trade Name Deborah PRN Reason Stop Dose Admin Acetaminophen 975 mg 04/05/25 19:13 04/05/25 19:33 Acetaminophen 325 Mg Tablet PO 04/05/25 19:14 975 mg ONCE ONE Administration Ketorolac Tromethamine 15 mg 04/05/25 19:13 04/05/25 19:33 Ketorolac Tromethamine 15 Mg/Ml Vial IM 04/05/25 19:14 15 mg ONCE ONE Administration Lidocaine 1 patch 04/05/25 19:18 04/05/25 19:33 Lidocaine 4 % Patch Adh..Patch TRANSDERMA 04/05/25 19:19 1 patch ONCE ONE Administration Protocol Methocarbamol 750 mg 04/05/25 19:13 04/05/25 19:33 Methocarbamol 750 Mg Tablet PO 04/05/25 19:14 750 mg ONCE ONE Administration Medical Decision Making Medical Decision Making MDM Narrative: Medical Decision Making: [age] female with fall versus syncopal episode after feeling slightly lightheaded differential mostly suggestive of vasovagal orthostasis dehydration there was no thunderclap headache chest pain difficulty breathing or other concerning symptomatology around the event. ECG nonischemic significant tenderness left chest wall. Head cervical and lumbar imaging done prior to my evaluation this is all without traumatic injury. I will add on a chest CT Chest CT is without any actionable traumatic injuries or rib fractures Preliminary Favored Differential Diagnosis: Chest contusion, vasovagal, orthostasis, dehydration, less likely transient arrhythmia among additional considered etiologies Testing Interpreted Independently: ?See below for details Radiology or Lab testing Results Reviewed: ?See below for details Consults: ?See below for details Independent Historians/External Chart Reviews: ?See below for details Social Determinants of Health Impacting MDM/Planning: ?See below for details Lab Data 04/05/25 14:52 04/05/25 15:59 Labs: Lab Results 04/05/25 04/05/25 Range/Units 14:52 15:59 WBC Cancelled RBC Cancelled Hgb Cancelled Hct Cancelled MCV Cancelled MCH Cancelled MCHC Cancelled RDW Cancelled Plt Count Cancelled MPV Cancelled Immature Gran % (Auto) Cancelled Neut % (Auto) Cancelled Lymph % (Auto) Cancelled Nuckolls % (Auto) Cancelled Eos % (Auto) Cancelled Baso % (Auto) Cancelled Lymph # (Auto) Cancelled Nuckolls # (Auto) Cancelled Eos # (Auto) Cancelled Baso # (Auto) Cancelled Abs Immat Gran (auto) Cancelled Absolute Neuts (auto) Cancelled Absolute Nucleated RBC Cancelled Nucleated RBC % (auto) Cancelled PT 13.0 (11.2-13.5) SEC INR 1.1 (0.9-1.1) Sodium 139 (135-145) mmol/L Potassium 5.2 H D (3.3-5.1) mmol/L Chloride 104 (96-108) mmol/L Carbon Dioxide 26 (22-29) mmol/L Anion Gap 14 (12-20) BUN 19 H (9-16) mg/dL Creatinine 0.62 (0.5-1.4) mg/dL Estim Creat Clear Calc 86.3 Estimated GFR > 60 Random Glucose 113 (60-115) mg/dL Calcium 9.7 (8.4-10.2) mg/dL Magnesium 1.6 (1.6-2.6) mg/dL Total Bilirubin 1.0 (0.0-1.0) mg/dL AST 16 (5-31) U/L ALT 19 (0-31) U/L Alkaline Phosphatase 86 (39-117) U/L Troponin I High Sens 16.2 (<3.5-17.0) ng/L Total Protein 7.2 (6.5-8.0) g/dL Albumin 4.2 (3.5-5.0) g/dL Influenza Type A (PCR) NEGATIVE (Negative) Influenza Type B (PCR) NEGATIVE (Negative) RSV RNA Qual (PCR) NEGATIVE (Negative) SARS-CoV-2 RNA (RT-PCR) NEGATIVE (Negative) Discharge Plan Discharge Clinical Impression: Chest wall contusion Patient Disposition: Home, Self-Care Instructions: Rib Contusion (ED) Additional Instructions: You were evaluated after a fall. We feel you likely had a vasovagal episode. See the attached instructions which described this. Make sure you are well hydrated. You were evaluated for traumatic injuries with CT scans of your head and neck low back and chest with no significant findings. Lab work was reassuring. We recommend you take muscle relaxant as needed do not drive while under the influence of this. Do not mix with alcohol. You can take Tylenol ibuprofen as needed if allowable with your other medical issues. You can also get lidocaine patches, lidocaine screen or other topical analgesic medicines such as diclofenac gel. I would be surprised if you had some discomfort of your chest wall for at least several days possibly 1 or 2 weeks. Prescriptions: New methocarbamol 750 mg tablet 750 mg PO Q8H PRN (Reason: spasm) Qty: 10 0RF No Action docusate sodium 100 mg capsule 100 mg PO BEDTIME Qty: 90 3RF celecoxib 200 mg capsule 200 mg PO BID PRN (Reason: for pain) Qty: 60 3RF amlodipine 5 mg tablet 5 mg PO QAM Qty: 90 3RF (DME) FreeStyle Angélica 3 Sensor Device See Rx Instructions .ROUTE .MEDSUPPLY Qty: 2 11RF Rx Instructions: As directed (DME) FreeStyle Angélica 3 Vernonia Misc See Rx Instructions .ROUTE .MEDSUPPLY Qty: 1 0RF Rx Instructions: As directed acetaminophen 325 mg capsule 650 mg PO Q6H PRN (Reason: pain) Qty: 20 0RF meclizine 25 mg tablet 25 mg PO TID PRN (Reason: dizziness) Qty: 30 0RF cyanocobalamin (vitamin B-12) 1,000 mcg tablet 1,000 mcg PO QAM Asmanex HFA 200 mcg/actuation HFA aerosol inhaler 2 puff INHALATION BID metoprolol tartrate 100 mg tablet 100 mg PO DAILY lidocaine [Lidoderm] 5 % adhesive patch,medicated 1 patch topical DAILY PRN (Reason: Pain) Rx Instructions: leave on most painful area for up to 12 hrs metformin 500 mg Tablet Extended Release 24 Hr 1,000 mg PO DAILY@1700 albuterol sulfate 2.5 mg /3 mL (0.083 %) solution for nebulization 2.5 mg inhalation Q4H PRN (Reason: shortness of breath or wheezing) Qty: 180 0RF atorvastatin 80 mg tablet 80 mg PO DAILY isosorbide mononitrate 30 mg tablet extended release 24 hr 30 mg PO QAM lisinopril 40 mg tablet 40 mg PO DAILY loratadine 10 mg tablet 10 mg PO DAILY aspirin [Adult Low Dose Aspirin] 81 mg tablet,delayed release (DR/EC) 81 mg PO BEDTIME omeprazole 40 mg capsule,delayed release(DR/EC) 40 mg PO DAILY gabapentin 100 mg capsule 100 mg PO BEDTIME Trulicity 1.5 mg/0.5 mL pen injector 1.5 mg subcut QWEEK 28 Days Qty: 2 11RF insulin degludec [Tresiba FlexTouch U-200] 200 unit/mL (3 mL) insulin pen 100 unit subcut DAILY 30 Days Qty: 15 11RF insulin aspart U-100 [Novolog FlexPen U-100 Insulin] 100 unit/mL (3 mL) insulin pen 12 unit subcut TID 30 Days Qty: 12 11RF (DME) FreeStyle Lite Strips Strip See Rx Instructions .Route Rx Instructions: As directed (DME) blood-glucose meter [FreeStyle Lite Meter] Kit See Rx Instructions .Route Rx Instructions: As directed (DME) lancets [FreeStyle Lancets] 28 gauge misc See Rx Instructions .Route Rx Instructions: As directed (DME) transport belt See Rx Instructions .Route .MEDSUPPLY Qty: 1 0RF Rx Instructions: As directed Interventions: ED Discharge Assessment Last Done: 04/05/25 22:15 Discharge Date/Time: 04/05/25 22:41 Print Language: Malay
--- NOTE | 2025-04-05 14:43 | ECG_ITS ---
Test Reason : syncope Blood Pressure : */* mmHG Vent. Rate : 65 BPM Atrial Rate : * BPM P-R Int : * ms QRS Dur : 74 ms QT Int : 428 ms P-R-T Axes : * 0 14 degrees QTcB Int : 445 ms Normal sinus rhythm with PACs Otherwise normal ECG When compared with ECG of 20-Mar-2025 17:37, No significant changes seen Referred By: Amarilis Bryant Electronically Signed By: Fabio Andrade
[2025-04-05 16:25] LABS: INTERNATIONAL NORM RATIO 1.1 (0.9-1.1); Prothrombin Time 13.0 SEC (11.2-13.5)
[2025-04-05 16:30] LABS: Alanine Aminotransferase 19 U/L (0-31); Albumin Level 4.2 g/dL (3.5-5.0); Alkaline Phosphatase 86 U/L (39-117); Anion Gap 14 (12-20); Aspartate Amino Transferase 16 U/L (5-31); Blood Urea Nitrogen 19 mg/dL (9-16); Calcium 9.7 mg/dL (8.4-10.2); Carbon Dioxide 26 mmol/L (22-29); Chloride 104 mmol/L (96-108); Creatinine Clr Calc Pharmacy 86.3; Estimated Glomerular Filt Rate > 60; Magnesium 1.6 mg/dL (1.6-2.6); Potassium 5.2 mmol/L (3.3-5.1); Sodium 139 mmol/L (135-145); Total Protein 7.2 g/dL (6.5-8.0)
[2025-04-05 16:38] LABS: Troponin-I High Sensitivity 16.2 ng/L (<3.5-17.0)
[2025-04-05 16:52] LABS: Resp Syncy Virus RNA Qual PCR NEGATIVE (Negative); SARS COV2 PCR INHOUSE NEGATIVE (Negative)
--- OUTSIDE RECORDS SUMMARY | 2025-04-05 19:31 | XMS_ITS | Encounter Summary ---
Author Organization [employer] Address [address] [facility] 7t [place] [address] Care Team Providers Care Director Report Name Role Phone Dallas Menard MD Primary Care Provide r Cristy Alston RN Unavailable [phone] Jeanne Perez Unavailable Encounter Details Date Type Department Care Team (Late st Contact Info) Description 08/14/2022 Orders Only [facility] CHC MED & PEDS [address] [place], [place] [phone] Jennifer Lopez LPN Social History Tobacco Use [...] Department Care Team (Late Contact Info) Description 06/09/2025 9:15 AM EST Office Visit [facility] MEDICINE [address] [place], [place] [phone] Dallas Menard MD [address] [place], [place] [phone] documented as of this encounter Visit Diagnoses Not on filedocumented in this encounter Additional Health Concerns Assessment Noted Time PHQ-9 Depression Total Score: 5 05/30/19 23 11:51 AM EST documented as of this encounter Care Teams Director Report Relationship Specialty Start Date End Date Dallas Menard MD [address] [place] [address] PCP - General Internal Medicine 08/11/15 Cristy Alston, RHONDA [address] [place] [address] Registered Nurse Family Medicine 03/23/25 Jeanne Perez 03/23/25 [facility] 08/15/24 documented as of this encounter
--- OUTSIDE RECORDS SUMMARY | 2025-04-05 19:31 | XMS_ITS | Encounter Summary ---
Author Organization [employer] Address [address] [facility] 7[address] [place] [address] Care Team Providers Care Partition Making Machine Operator Name Role Phone Dallas Menard MD Primary Care Provide r Cristy Alston RN Unavailable [phone] Jeanne Perez Unavailable Encounter Details Date Type Department Care Team (Late Contact Info) Description 10/03/2022 Orders Only [facility] CHC MED & PEDS [address] [place], [place] [phone] Jennifer Lopez LPN Social History Tobacco Use [...] Description 06/09/2025 9:15 AM EST Office Visit [facility] MEDICINE [address] [place], [place] [phone] Dallas Menard MD [address] [place], [place] [phone] documented as of this encounter Visit Diagnoses Not on filedocumented in this encounter Additional Health Concerns Assessment Noted Time PHQ-9 Depression Total Score: 5 05/30/19 23 11:51 AM EST documented as of this encounter Care Teams Partition Making Machine Operator Relationship Specialty Start Date End Date Dallas Menard MD [address] [place] [address] PCP - General Internal Medicine 08/11/15 Cristy Alston, RHONDA [address] [place] [address] Registered Nurse Family Medicine 03/23/25 Jeanne Perez 03/23/25 [facility] 08/15/24 documented as of this encounter
--- OUTSIDE RECORDS SUMMARY | 2025-04-05 19:31 | XMS_ITS | Encounter Summary ---
Author Organization [employer] Address [address] [facility] [address] [place] [address] Care Team Providers Care Machinery Repair Maintenance Supervisor Name Role Phone Dallas Menard MD Primary Care Provide r Cristy Alston RN Unavailable [phone] Jeanne Perez Unavailable Reason for Visit * Reason Onset Date Comments Appointment Request 07/10/2024 Encounter Details Date Type Department Care Team (Late st Contact Info) Description 07/10/2024 Telephone [facility] MEDICINE [address] [place], [place] [phone] Dallas Menard MD [address] [place], [place] [phone] Appointment Request Social History Tobacco Use Types [...] the past 12 months, has t he [employer], gas, oil or water [employer] threatened to shut off services in your [...] EST Tc from pt requesting appointment , life underwriter advised theres no soon appointments available as if any symptoms life underwriter could assist with triage nurse as pt denied. documented in this encounter Plan of Treatment Upcoming Encounters Date Type Department Care Team (Late st Contact Info) Description 06/09/2025 9:15 AM EST Office Visit [facility] MEDICINE [address] [place] [address] Dallas Menard MD [address] [place] [address] documented as of this encounter Visit Diagnoses Not on filedocumented in this encounter Additional Health Concerns Assessment Noted Time PHQ-9 Depression Total Score: 14 024 3:35 PM EDT documented as of this encounter Care Teams Machinery Repair Maintenance Supervisor Relationship Specialty Start Date End Date Dallas Menard MD [address] [place] [address] PCP - General Internal Medicine 08/11/15 Cristy Alston RN [address] [place] [address] [place] Thkakar [address] Registered Nurse Family Medicine 03/23/25 Jeanne Perez 03/23/25 [facility] 08/15[facility] documented as of this encounter
--- OUTSIDE RECORDS SUMMARY | 2025-04-05 19:31 | XMS_ITS | Encounter Summary ---
Author Organization [employer] Address [address] [facility] 7[address] [place] [address] Care Team Providers Care Inside Horticultural Specialty Grower Name Role Phone Dallas Menard MD Primary Care Provide r Cristy Alston RN Unavailable [phone] Jeanne Perez Unavailable Encounter Details Date Type Department Care Team (Late st Contact Info) Description 10/16/2022 Orders Only [facility] MEDICINE [address] [place] [phone] Christie Strauss LPN Social History Tobacco Use [...] Description 06/09/2025 9:15 AM EST Office Visit [facility] MEDICINE [address] [place], [place] [phone] Dallas Menard MD [address] [place], [place] [phone] documented as of this encounter Visit Diagnoses Not on filedocumented in this encounter Additional Health Concerns Assessment Noted Time PHQ-9 Depression Total Score: 5 05/30/19 23 11:51 AM EST documented as of this encounter Care Teams Inside Horticultural Specialty Grower Relationship Specialty Start Date End Date Dallas Menard MD [address] [place] [address] PCP - General Internal Medicine 08/11/15 Cristy Alston, RHONDA [address] [place] [phone] Registered Nurse Family Medicine 03/23/25 Jeanne Perez 03/23/25 [facility] 08/15/24 documented as of this encounter
--- OUTSIDE RECORDS SUMMARY | 2025-04-05 19:31 | XMS_ITS | Encounter Summary ---
Author Organization [employer] Address [address] [facility] [address] [place] [address] Care Team Providers Care Group Sales Coordinator Name Role Phone Dallas Menard MD Primary Care Provide r Cristy Alston RN Unavailable [phone] Jeanne Perez Unavailable Reason for Visit * Reason Comments Med Refill Encounter Details Date Type Department Care Team (Late st Contact Info) Description 07/20/2022 Refill [facility] MEDICINE [address] [place] [phone] Alyce Murphy ANP [address] [place], [place] [phone] Social History Tobacco Use Types Packs/Day Years [...] Description 06/09/2025 9:15 AM EST Office Visit [facility] MEDICINE [address] [place], [place] [phone] Dallas Menard MD [address] [place] [address] documented as of this encounter Visit Diagnoses Not on filedocumented in this encounter Additional Health Concerns Assessment Noted Time PHQ-9 Depression Total Score: 5 05/30/19 23 11:51 AM EST documented as of this encounter Care Teams Group Sales Coordinator Relationship Specialty Start Date End Date Dallas Menard MD [address] [place] [address] PCP - General Internal Medicine 08/11/15 Cristy Alston RN [address] [place] [phone] Registered Nurse Family Medicine 03/23/25 Jeanne Perez 03/23/25 [facility] 08/15/24 documented as of this encounter
--- OUTSIDE RECORDS SUMMARY | 2025-04-05 19:31 | XMS_ITS | Encounter Summary ---
Author Organization [employer] Address [address] [facility] 7t [place] [address] Care Team Providers Care Ship Boss Name Role Phone Dallas Menard MD Primary Care Provide r Cristy Alston RN Unavailable [phone] Jeanne Perez Unavailable Encounter Details Date Type Department Care Team (Late st Contact Info) Description 07/11/2022 Orders Only [facility] MED & PEDS [address], [place] [phone] Jennifer Lopez LPN Social History Tobacco Use [...] Description 06/09/2025 9:15 AM EST Office Visit [facility] MEDICINE [address] [place], [place] [phone] Dallas Menard MD [address] [place], [place] [phone] documented as of this encounter Visit Diagnoses Not on filedocumented in this encounter Additional Health Concerns Assessment Noted Time PHQ-9 Depression Total Score: 5 05/30/19 23 11:51 AM EST documented as of this encounter Care Teams Ship Boss Relationship Specialty Start Date End Date Dallas Menard MD [address] [place] [address] PCP - General Internal Medicine 08/11/15 Cristy Alston, RHONDA [address] [place] [address] Registered Nurse Family Medicine 03/23/25 Jeanne Perez 03/23/25 [facility] 08/15/24 documented as of this encounter
--- OUTSIDE RECORDS SUMMARY | 2025-04-05 19:32 | XMS_ITS | Encounter Summary ---
Author Organization [employer] Address [address] [facility] 7t [place] [address] Care Team Providers Care Electrical Drafter Name Role Phone Dallas Menard MD Primary Care Provide r Cristy Alston RN Unavailable [phone] Jeanne Perez Unavailable Reason for Visit * Reason Onset Date Comments Hospital Follow-up 08/11/2024 Encounter Details Date Type Department Care Team (Late st Contact Info) Description 08/11/2024 Telephone [facility] MEDICINE [address] [place], [place] [phone] Dallas Menard MD [address] [place], [place] [phone] Hospital Follow-up Social History Tobacco Use Types [...] from pt requesting a HDF appt. Hospital: [facility] Date of admission: 08/08/24 Discharge date: 08/11/24 Diagnosed: Dizziness and Abnormality in the Ecocardiogram. *Send message to [place] Clinical Care Coordinators Contact pt at [phone] documented in this encounter Plan of Treatment Upcoming Encounters Date Type Department Care Team (Late st Contact Info) Description 06/09/2025 9:15 AM EST Office Visit [facility] MEDICINE [address] [place], [place] [phone] Dallas Menard MD [address] [place] [address] documented as of this encounter Visit Diagnoses Not on filedocumented in this encounter Additional Health Concerns Assessment Noted Time PHQ-9 Depression Total Score: 13 07/31/ 025 8:43 AM EDT documented as of this encounter Care Teams Electrical Drafter Relationship Specialty Start Date End Date Dallas Menard MD [address] [place] [address] PCP - General Internal Medicine 08/11/15 Cristy Alston RN [address] [place] [phone] Registered Nurse Family Medicine 03/23/25 Jeanne Perez 03/23/25 [facility] 08/15/24 documented as of this encounter
--- OUTSIDE RECORDS SUMMARY | 2025-04-05 19:32 | XMS_ITS | Clinical Summary ---
Author Organization [facility] Address [address] [place] [address] Phone Care Team Providers Care It Associate Name Role Phone Dallas Butler MD Primary [...] to complete this topic Insurance MEDICA[place] - [place] Care Teams It Associate Relationship Specialty Start Date End Date Dallas Butler MD [address] [place] [phone] PCP - General Internal Medicine 11/21/24
--- OUTSIDE RECORDS SUMMARY | 2025-04-05 19:32 | XMS_ITS | Encounter Summary ---
Author Organization [employer] Address [address] [facility] 7t [place] [address] Care Team Providers Care Linux Vmware Administrator Name Role Phone Dallas Menard MD Primary Care Provide r Cristy Alston RN Unavailable [phone] Jeanne Perez Unavailable Reason for Visit * Reason Comments Med Refill Encounter Details Date Type Department Care Team (Late st Contact Info) Description 05/09/2024 Refill [facility] MEDICINE [address] [place], [place] [phone] Dallas Menard MD [address] [place], [place] [phone] Chronic abdominal pain Social History Tobacco Use [...] the past 12 months, has t he crossvertise, gas, oil or water company threatened to [...] Description 06/09/2025 9:15 AM EST Office Visit [facility] MEDICINE [address] [place] [address] Dallas Menard MD [address] [place] [address] documented as of this encounter Visit Diagnoses Diagnosis Chronic abdominal pain Abdominal pain, unspecified site documented in this encounter Additional Health Concerns Assessment Noted Time PHQ-9 Depression Total Score: 14 024 3:35 PM EDT documented as of this encounter Care Teams Linux Vmware Administrator Relationship Specialty Start Date End Date Dallas Menard MD [address] [place] [address] PCP - General Internal Medicine 08/11/15 Cristy Alston, RHONDA [address] [place] [phone] Registered Nurse Family Medicine 03/23/25 Jeanne Perez 03/23/25 [facility] 08/[facility] documented as of this encounter
--- OUTSIDE RECORDS SUMMARY | 2025-04-05 19:32 | XMS_ITS | Encounter Summary ---
Author Organization [employer] Address [address] [facility] 7[address] [place] [address] Care Team Providers Care Marketing Data Specialist Name Role Phone Dallas Menard MD Primary Care Provide r Cristy Alston RN Unavailable [phone] Jeanne Perez Unavailable Encounter Details Date Type Department Care Team (Late st Contact Info) Description 05/22/2022 Orders Only [facility] CHC MED & PEDS [address] [place], [place] [phone] Jennifer Lopez LPN Social History Tobacco Use [...] 06/09/2025 9:15 AM EST Office Visit [facility] MEDICINE [address] [place], [place] [phone] Dallas Menard MD [address] [place], [place] [phone] documented as of this encounter Visit Diagnoses Not on filedocumented in this encounter Care Teams Marketing Data Specialist Relationship Specialty Start Date End Date Dallas Menard MD [address] [place] [address] PCP - General Internal Medicine 08/11/15 Cristy Alston, RHONDA [address] [place] [address] Registered Nurse Family Medicine 03/23/25 Jeanne Perez 03/23/25 [facility] 08/15/24 documented as of this encounter
--- OUTSIDE RECORDS SUMMARY | 2025-04-05 19:32 | XMS_ITS | Encounter Summary ---
Author Organization [employer] Address [address] [facility] 7t [place] [address] Care Team Providers Care Procurement Representative Name Role Phone Dallas Menard MD Primary Care Provide r Cristy Alston RN Unavailable [phone] Jeanne Perez Unavailable Encounter Details Date Type Department Care Team (Late st Contact Info) Description 04/05/2025 Orders Only GENERIC EXTERNAL DATA DEPARTMENT Provider, [...] Description 06/09/2025 9:15 AM EST Office Visit [facility] MEDICINE [address] [place] [address] Dallas Menard MD [address] [place] [address] documented as of this encounter Goals Goal Patient Goal Type Associated Problems Recent Progress Patient-Stated? Author Help patients manage their type 2 diabetes Care Plan Help patients manage their type 2 diabetes Jeanne Arango Weekly blood pressure task Care Plan Weekly blood pressure task No Jeanne Perez Help patients manage their type 2 diabetes Care Plan Help patients manage their type 2 diabetes No Jeanne Perez Patient has chronic kidney disease Care Plan Patient has chronic kidney disease No Jeanne Perez Weekly blood pressure task Care Plan Weekly blood pressure task No Jeanne Perez Patient has chronic kidney disease Care Plan Patient has chronic kidney disease Jeanne Arango Weekly blood pressure task Care Plan Weekly blood pressure task No Tiffanie Walker MA Weekly blood pressure task Care Plan Weekly blood pressure task No Tiffanie Walker MA Patient has chronic kidney disease Care Plan Patient has chronic kidney disease No Tiffanie Walker MA Patient has chronic kidney disease Care Plan Patient has chronic kidney disease No Tiffanie Walker MA documented as of this encounter Procedures Procedure Name Priority Date/Time Associated Diagnosis Comments CT LUMBAR SPINE WO CONTRAST Routine 04/05/2025 4:[address] CERVICAL SPINE WO CONTRAST Routine 04/05/2025 4:[address] HEAD WO CONTRAST Routine 04/05/2025 4 :49 PM EST HIGH SENSITIVITY TROPONIN I Routine 04/05/2025 3:59 PM EST SARS COV2/INFLUENZA A/B AND RSV RNA QL NAAT Routine 04/05/2025 3:59 PM EST PROTHROMBIN TIME-INR Routine 04/05/2025 3:59 PM EST MAGNESIUM Routine 04/05/2025 3:59 PM EST COMPREHENSIVE METABOLIC PANEL Routine 04/05/2025 3:59 PM EST documented in this encounter Results * CT Lumbar Spine w/o Contrast (04/05/2025 4:56 PM EST) Anatomical Region Laterality Modality Spine, L-spine Computed Tomogra phy 04/05/2025 4:56 PM EST Narrative 04/05/2025 4:58 PM EST [place] [address] CT Scan Report Signed Patient: Wendy Rivers MR#: [id number] 241 : 1965 Acct:[id number] Age/Sex: 59 / F ADM Date: 04/05/25 Loc: HO.ED Attending Dr: Ordering Physician: Amarilis Bryant Date of Service: 04/05/25 Procedure(s): CT lumbar spine wo IV con Accession Number(s): [id number] cc: Dallas Butler MD; Amarilis Bryant Report Number: [id number]: Total DLP = 727.00 mGy-cm Reason for Exam: low back pain CLINICAL HISTORY: low back pain CT lumbar spine without contrast Comparison: MR/SR - MR LUMBAR SPINE WITHOUT IV CONTRAST - 03/13/23 13:59 EDT Findings: Vertebral alignment is within normal limits. No acute fractures or dislocations. Mild multilevel degenerative changes without findings of high-grade canal or neural foraminal stenosis. Normal visualized abdominal contents. IMPRESSION: No acute lumbar spine findings. Stable mild multilevel degenerative changes. This document has been electronically signed by: Rudy Simpson MD on 04/05/2025 16:56:31 Dictated By: Rudy Simpson MD Signed By: <Electronically signed by Rudy Simpson MD in OV> 04/05/251656 DD/ 55 TD/TT: 04/05/251655 Coagulating Drying Supervisor: Procedure Note Donotuseinterpreter, Image - 04/05/[address] [place] [address] [address] Scan Report Signed Patient: Wendy RiversMR#: [id number] 241 : 1965Acct:[id number] Age/Sex: 59 / FADM Date: 04/05/25 Loc: HO.ED Attending Dr: Ordering Physician: Amarilis Bryant Date of Service: 04/05/25 Procedure(s): CT lumbar spine wo IV con Accession Number(s): [id number] cc: Dallas Butler MD; Amarilis Bryant Report Number: [id number]: Total DLP = 727.00 mGy-cm Reason for Exam: low back pain CLINICAL HISTORY: low back pain CT lumbar spine without contrast Comparison: MR/SR - MR LUMBAR SPINE WITHOUT IV CONTRAST - 03/13/23 13:59 EDT Findings: Vertebral alignment is within normal limits. No acute fractures or dislocations. Mild multilevel degenerative changes without findings of high-grade canal or neural foraminal stenosis. Normal visualized abdominal contents. IMPRESSION: No acute lumbar spine findings. Stable mild multilevel degenerative changes. This document has been electronically signed by: Rudy Simpson MD on 04/05/2025 16:56:31 Dictated By: Rudy Simpson MD Signed By: <Electronically signed by Rudy Simpson MD in OV> 04/05/251656 DD/ 55 TD/TT: 04/05/251655 Coagulating Drying Supervisor: us [facility] External Provider IMG CT PROCEDURES Final Result * CT Cervical Spine w/o Contrast (04/05/2025 4:50 PM EST) Anatomical Region Laterality Modality Spine, C-spine Computed Tomogra phy 04/05/2025 4:50 PM EST Narrative 04/05/2025 4:51 PM EST [address] [address] [address] Scan Report Signed Patient: Wendy Rivers MR#: [id number] 241 : 1965 Acct:[id number] Age/Sex: 59 / F ADM Date: 04/05/25 Loc: .ED Attending Dr: Ordering Physician: Amarilis Bryant Date of Service: 04/05/25 Procedure(s): CT cervical spine wo IV con Accession Number(s): [id number] cc: Dallas Butler MD; Amarilis Bryant Report Number: [id number]: Total DLP = 333.70 mGy-cm Reason for Exam: fall, pain, dizziness CLINICAL HISTORY: fall, pain, dizziness CT cervical spine without contrast Comparison: CT/SR - CT CERVICAL SPINE WO IV CON - 07/11/24 23:35 EST Findings: Vertebral alignment is within normal limits. No significant degenerative change. No acute fractures or dislocations. No acute findings on limited view of the intracranial contents. No cervical fluid collections or masses. No consolidation or effusion at the lung apices. IMPRESSION: No acute cervical spine findings. This document has been electronically signed by: Rudy Simpson MD on 04/05/2025 16:50:38 Dictated By: Rudy Simpson MD Signed By: <Electronically signed by Rudy Simpson MD in OV> 04/05/251650 DD/ 49 TD/TT: 04/05/251649 Coagulating Drying Supervisor: Procedure Note Donotuseinterpreter, Image - 04/05/[address] [address] [address] Scan Report Signed Patient: Wendy RiversMR#: [id number] 241 : 1965Acct:[id number] Age/Sex: 59 / FADM Date: 04/05/25 Loc: HO.ED Attending Dr: Ordering Physician: Amarilis Bryant Date of Service: 04/05/25 Procedure(s): CT cervical spine wo IV con Accession Number(s): [id number] cc: Dallas Butler MD; Amarilis Bryant Report Number: [id number]: Total DLP = 333.70 mGy-cm Reason for Exam: fall, pain, dizziness CLINICAL HISTORY: fall, pain, dizziness CT cervical spine without contrast Comparison: CT/SR - CT CERVICAL SPINE WO IV CON - 07/11/24 23:35 EST Findings: Vertebral alignment is within normal limits. No significant degenerative change. No acute fractures or dislocations. No acute findings on limited view of the intracranial contents. No cervical fluid collections or masses. No consolidation or effusion at the lung apices. IMPRESSION: No acute cervical spine findings. This document has been electronically signed by: Rudy Simpson MD on 04/05/2025 16:50:38 Dictated By: Rudy Simpson MD Signed By: <Electronically signed by Rudy Simpson MD in OV> 04/05/25 1651 DD/ 1650 TD/TT: 04/05/25 1650 Coagulating Drying Supervisor: [facility] External Provider IMG CT PROCEDURES Final Result * CT Head w/o Contrast (04/05/2025 4:49 PM EST) Anatomical Region Laterality Modality Head, Neck Computed Tomogra phy 04/05/2025 4:49 PM EST Narrative 04/05/2025 4:49 PM EST [address] [address] [address] Scan Report Signed Patient: Wendy Rivers MR#: [id number] 241 : 1965 Acct:[id number] Age/Sex: 59 / F ADM Date: 04/05/25 Loc: HO.ED Attending Dr: Ordering Physician: Amarilis Bryant Date of Service: 04/05/25 Procedure(s): CT head/brain wo IV con Accession Number(s): [id number] cc: Dallas Butler MD; Amarilis Bryant Report Number: [id number]: Total DLP = 561.74 mGy-cm Reason for Exam: fall, pain, dizziness CLINICAL HISTORY: fall, pain, dizziness CT head without contrast Comparison: CT/REG/SR - CT HEAD WITHOUT IV CONTRAST - 03/20/25 15:[address]/SR - CT HEAD/BRAIN WO IV CON - 07/11/24 23:35 EST Findings: Motion artifact mildly limits evaluation. No intra-axial mass, midline shift, hydrocephalus, or acute hemorrhage. No significant atrophy-like change or white matter disease. The visualized paranasal sinuses and mastoid air cells are normal. The orbits are unremarkable. No skull fracture. IMPRESSION: No acute intracranial findings. This document has been electronically signed by: Rudy Simpson MD on 04/05/2025 16:49:00 Dictated By: Rudy Simpson MD Signed By: <Electronically signed by Rudy Simpson MD in OV> 04/05/251648 DD/ 48 TD/TT: 04/05/251648 Coagulating Drying Supervisor: Procedure Note Donotuseinterpreter, Image - 04/05/[address] [place] [address] [address] Scan Report Signed Patient: Wendy RiversMR#: [id number] 241 : 1965Acct:[id number] Age/Sex: 59 / FADM Date: 04/05/25 Loc: .ED Attending Dr: Ordering Physician: Amarilis Bryant Date of Service: 04/05/25 Procedure(s): CT head/brain wo IV con Accession Number(s): [id number] cc: Dallas Butler MD; Amarilis Bryant Report Number: [id number]: Total DLP = 561.74 mGy-cm Reason for Exam: fall, pain, dizziness CLINICAL HISTORY: fall, pain, dizziness CT head without contrast Comparison: CT/REG/SR - CT HEAD WITHOUT IV CONTRAST - 03/20/25 15:[address]/SR - CT HEAD/BRAIN WO IV CON - 07/11/24 23:35 EST Findings: Motion artifact mildly limits evaluation. No intra-axial mass, midline shift, hydrocephalus, or acute hemorrhage. No significant atrophy-like change or white matter disease. The visualized paranasal sinuses and mastoid air cells are normal. The orbits are unremarkable. No skull fracture. IMPRESSION: No acute intracranial findings. This document has been electronically signed by: Rudy Simpson MD on 04/05/2025 16:49:00 Dictated By: Rudy Simpson MD Signed By: <Electronically signed by Rudy Simpson MD in OV> 04/05/25 1649 DD/ 48 TD/TT: 04/05/251648 Coagulating Drying Supervisor: [facility] External Provider IMG CT PROCEDURES Final Result * SARS-CoV-2 RNA, Influenza A/B, and RSV RNA, Ql NAAT (04/05/2025 3:59 PM EST) Influenza A PCR NEGATIVE Negative [facility] Influenza B PCR NEGATIVE Negative [facility] Resp Syncy Virus RNA Qual PCR NEGATIVE Negative [facility] SARS COV2 PCR NEGATIVE Negative [facility] Comment:All test results mus [...] use by authorized laboratories.Testing performed on the [employer] GeneXpert utilizingreal-time RT-PCR.All SARS CoV2 and positive influenza A/B results arereported to [facility]. 04/05/2025 3:59 PM EST 04/05/2025 4:09 PM EST Generic External Data Provider LAB MICROBIOLOGY - GENERAL ORDERABLES Final Result Performing Organization Address [facility] de Phone Number [facility] [address] [place] [phone] * High Sensitivity Troponin I (04/05/2025 3:59 PM EST) [facility] TROPONIN I HIGH SENSITIVITY 16.2 <3.5 - 17.0 ng/L [facility] Comment:The [facility] high sens itivity Troponin-I results should beused in conjunction with other diagnostic information suchas ECG, clinical observations and information, and patientsymptoms to aid in the diagnosis of NE. 04/05/2025 3:59 PM EST 04/05/2025 4:09 PM EST Generic External Data Provider LAB BLOOD ORDERAB LES Final Result Performing Organization Address [facility] de Phone Number [facility] [address] [place] [phone] * Magnesium (04/05/2025 3:59 PM EST) [facility] Magnesium 1.6 1.6 - 2.6 mg/dL [facility] 04/05/2025 3:59 PM EST 04/05/2025 4:09 PM EST Generic External Data Provider LAB BLOOD ORDERAB LES Final Result Performing Organization Address [facility] de Phone Number [facility] [address] [place] [phone] * (ABNORMAL) Comprehensive Metabolic Panel (04/05/2025 3:59 PM EST) [facility] Sodium 139 135 - 145 mmol/L [facility] Potassium 5.2(H) 3.3 - 5.1 mmol/L [facility] Chloride 104 96 - 108 mmol/L [facility] Carbon Dioxide 26 22 - 29 mmol/L [facility] Anion Gap 14 12 - 20 [facility] Urea Nitrogen (BUN) 19(H) 9 - 16 mg/dL [facility] Creatinine, Serum 0.62 0.5 - 1.4 mg/dL [facility] Creatinine Clr Calc Pharmacy 86.3 [facility] Comment:Provided height and weight: 157.48 cm,63 kg.eGFR (calculated from the MDRD study equation) and eCrCl(calculated from the Cockcroft-Gault equation) are based ondifferent parameters and may not yield comparable results.If eCrCl result is absurd, please check patient'sheight/weight. Estimated Glomerular Filt Rate >60 [facility] Comment:Chronic Kidney Disea se: Estimated GFR < 60 mL/min/1.50p8Tktygs Kidney Disease: Estimated GFR < 15 mL/min/1.73m2 Glucose 113 60 - 115 mg/dL [facility] Calcium 9.7 8.4 - 10.2 mg/dL [facility] Bilirubin, Total 1.0 0.0 - 1.0 mg/dL [facility] Aspartate Amino Transferase 16 5 - 31 U/L [facility] Alanine Aminotransferase 19 0 - 31 U/L [facility] Total Protein 7.2 6.5 - 8.0 g/dL [facility] Albumin Level 4.2 3.5 - 5.0 g/dL [facility] Alkaline Phosphatase 86 39 - 117 U/L [facility] 04/05/2025 3:59 PM EST 04/05/2025 4:09 PM EST us Generic External Data Provider LAB BLOOD ORDERAB LES Final Result [facility] [address] [place] [phone] * Prothrombin Time-INR (04/05/2025 3:59 PM EST) Prothrombin Time 13.0 11.2 - 13.5 SEC [facility] INTERNATIONAL NORM RATIO 1.1 0.9 - 1.1 [facility] Comment:INTERNATIONAL NORMAL IZED RATIO (INR) REFERENCE RANGES Reference RangeFor patients not on anticoagulant therapy: 0.9 - 1.1INR ranges for oral anticoagulanttherapy:For prevention and treatment of venous thrombosis and pulmonary embolism: 2.0 - 3.0For acute myocardial infarction with aspirin therapy: 2.0 - 3.0For acute myocardial infarction without aspirin therapy: 3.0 - 4.0For patients with mechanical prosthetic heart valves: 2.5 - 3.5 04/05/2025 3:59 PM EST 04/05/2025 4:09 PM EST us Generic External Data Provider LAB BLOOD ORDERAB LES Final Result Performing Organization Address City/State/[facility] Co de Phone Number [facility] [address] [place] [phone] documented in this encounter Visit Diagnoses Not on filedocumented in this encounter Additional Health Concerns Active Problems Noted Date Diagnosed Date Help patients manage their type 2 diabetes 03/26 Weekly blood pressure task 03/26/2025 Help patients manage their type 2 diabetes 03/26 Patient has chronic kidney disease 03/26/2025 Weekly blood pressure task 03/26/2025 Patient has chronic kidney disease 03/26/2025 Weekly blood pressure task 03/26/2025 Weekly blood pressure task 03/26/2025 Patient has chronic kidney disease 03/26/2025 Patient has chronic kidney disease 03/26/2025 Assessment Noted Time PHQ-9 Depression Total Score: 9 02/04/20 1:49 PM EDT documented as of this encounter Care Teams Procurement Representative Relationship Specialty Start Date End Date Dallas Menard MD [address] [place] [address] PCP - General Internal Medicine 08/11/15 Cristy Alston RN [address] [place] [phone] Registered Nurse Family Medicine 03/23/25 Jeanne Perez 03/23/25 [facility] 08/[facility] documented as of this encounter
--- OUTSIDE RECORDS SUMMARY | 2025-04-05 19:32 | XMS_ITS | Clinical Summary ---
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 FADM Date: 04/05/25 Loc: HO.ED Attending Dr: Ordering Physician: Amarilis Bryant Date of Service: 04/05/25 Procedure(s): CT cervical spine wo IV con Accession Number(s): [id number] cc: Dallas Butler MD; Amarilis Bryant Report Number: [id number]: Total DLP = 333.70 mGy-cm Reason for [...] in OV> 04/05/251650 DD/ 49 TD/TT: 04/05/251649 Obstetrics Teacher: [facility] External Provider IMG CT PROCEDURES Final Result * CT Head w/o Contrast (04/05/2025 4:49 PM EST) Only the most recent of2 resultswithin the time period is included. Anatomical Region Laterality Modality Head, Neck Computed Tomogra phy 04/05/2025 4:49 PM EST Narrative 04/05/2025 4:49 PM EST [place] [address] CT Scan Report Signed Patient: Wendy Rivers MR#: [id number] 241 : 1965 Acct:[id number] Age/Sex: 59 / F ADM Date: 04/05/25 Loc: HO.ED Attending Dr: Ordering Physician: Amarilis Bryant Date of Service: 04/05/25 Procedure(s): CT head/brain wo IV con Accession Number(s): [id number] cc: Dallas Butler MD; Amarilis Bryant Report Number: [id number]: Total DLP = 561.74 mGy-cm Reason for [...] in OV> 04/05/251648 DD/ 48 TD/TT: 04/05/251648 Obstetrics Teacher: Procedure Note Donotuseinterpreter, Image - 04/05/[address] [address] [address] Scan Report Signed Patient: Jaun Rivers#: [id number] 241 : 1965Acct:[id number] Age/Sex: 59 / FADM Date: 04/05/25 Loc: .ED Attending Dr: Ordering Physician: Amarilis Bryant Date of Service: 04/05/25 Procedure(s): CT head/brain wo IV con Accession Number(s): [id number] cc: Dallas Butler MD; Amarilis Bryant Report Number: [id number]: Total DLP = 561.74 mGy-cm Reason for [...] MD in OV> 04/05/251648 DD/ 48 TD/TT: 11/23/25 1649 Obstetrics Teacher: us [facility] External Provider IMG CT PROCEDURES Final Result * XR Chest 2 Views (04/05/2025 4:03 PM EST) Anatomical Region Laterality Modality Chest Radiographic Radha ging 04/05/2025 4:03 PM EST Narrative 04/05/2025 4:04 PM EST [address] [address] XRay Report Signed Patient: Wendy Rivers MR#: [id number] 241 : 1965 Acct:[id number] Age/Sex: 59 / F ADM Date: 04/05/25 Loc: HO.ED Attending Dr: Ordering Physician: Amarilis Bryant Date of Service: 04/05/25 Procedure(s): XR chest 2V Accession Number(s): [id number] cc: Dallas Butler MD; Amarilis Bryant Reason for Exam: fall, pain, dizziness CLINICAL HISTORY: fall, pain, dizziness 2 view chest x-ray Comparison: CR/SR - XR CHEST 1 VIEW - 03/20/25 14:05 EST Findings: No consolidation or effusion. Normal size heart. No acute fracture. IMPRESSION: No acute cardiopulmonary findings. This document has been electronically signed by: Rudy Simpson MD on 04/05/2025 16:03:23 Dictated By: Rudy Simpson MD Signed By: <Electronically signed by Rudy Simpson MD in OV> 04/05/25 1604 DD/ 1603 TD/TT: 04/05/25 1603 Obstetrics Teacher: Procedure Note Donotuseinterpreter, Image - 04/05/[address] [address] XRay Report Signed Patient: Wendy RiversMR#: [id number] 241 : 1965Acct:[id number] Age/Sex: 59 / FADM Date: 04/05/25 Loc: HO.ED Attending Dr: Ordering Physician: Amarilis Bryant Date of Service: 04/05/25 Procedure(s): XR chest 2V Accession Number(s): [id number] cc: Dallas Butler MD; Amarilis Bryant Reason for Exam: fall, pain, dizziness CLINICAL HISTORY: fall, pain, dizziness 2 view chest x-ray Comparison: CR/SR - XR CHEST 1 VIEW - 03/20/25 14:05 EST Findings: No consolidation or effusion. Normal size heart. No acute fracture. IMPRESSION: No acute cardiopulmonary findings. This document has been electronically signed by: Rudy Simpson MD on 04/05/2025 16:03:23 Dictated By: Rudy Simpson MD Signed By: <Electronically signed by Rudy Simpson MD in OV> 04/05/25 1604 DD/ 1603 TD/TT: 04/05/25 1603 Obstetrics Teacher: [facility] External Provider IMG XR PROCEDURES Final Result * High Sensitivity Troponin I (04/05/2025 3:59 PM EST) Only the most recent of3 resultswithin the time period is included. TROPONIN I HIGH SENSITIVITY 16.2 <3.5 - 17.0 ng/L [facility] Comment:The Farias high sens itivity Troponin-I results should beused in conjunction with other diagnostic information suchas ECG, clinical observations and information, and patientsymptoms to aid in the diagnosis of [place]. 04/05/2025 3:59 PM EST 04/05/2025 4:09 PM EST Generic External Data Provider LAB BLOOD ORDERAB LES Final Result [facility] [address] [place] [phone] * SARS-CoV-2 RNA, Influenza A/B, and RSV RNA, Ql NAAT (04/05/2025 3:59 PM EST) Pathologist [facility] Influenza A PCR NEGATIVE Negative [facility] Influenza B PCR NEGATIVE Negative [facility] Resp Syncy Virus RNA Qual PCR NEGATIVE Negative [facility] SARS COV2 PCR NEGATIVE Negative [facility] Comment:All test results mus [...] use by authorized laboratories.Testing performed on the [employer] GeneXpert utilizingreal-time RT-PCR.All SARS CoV2 and positive influenza A/B results arereported to [facility]. 04/05/2025 3:59 PM EST 04/05/2025 4:09 PM EST [employer] External Data Provider LAB MICROBIOLOGY - GENERAL ORDERABLES Final Result [facility] [address] [place] [phone] * Prothrombin Time-INR (04/05/2025 3:59 PM EST) Prothrombin Time 13.0 11.2 - 13.5 SEC [facility] INTERNATIONAL NORM RATIO 1.1 0.9 - 1.1 [facility] Comment:INTERNATIONAL NORMAL IZED RATIO (INR) REFERENCE [...] ORDERAB LES Final Result Performing Organization Address City/[facility]/ZIP Co de Phone Number [facility] [address] [place] [phone] * Magnesium (04/05/2025 3:59 PM EST) Magnesium 1.6 1.6 - 2.6 mg/dL [facility] 04/05/2025 3:59 PM EST 04/05/2025 4:09 PM EST us Generic External Data Provider LAB BLOOD ORDERAB LES Final Result Performing Organization Address [facility] Co de Phone Number [facility] [address] [place] [phone] * (ABNORMAL) Comprehensive Metabolic Panel (04/05/2025 3:59 PM EST) Sodium 139 135 - 145 mmol/L [facility] Potassium 5.2(H) 3.3 - 5.1 mmol/L [facility] Chloride 104 96 - 108 mmol/L [facility] Carbon Dioxide 26 22 - 29 mmol/L [facility] Anion Gap 14 12 - 20 [facility] Urea Nitrogen (BUN) 19(H) 9 - 16 mg/dL [facility] Creatinine, Serum 0.62 0.5 - 1.4 mg/dL [facility] Creatinine Clr Calc Pharmacy 86.3 [facility] Comment:Provided height and weight: 157.48 cm,63 kg.eGFR (calculated from the MDRD study equation) and eCrCl(calculated from the Cockcroft-Gault equation) are based ondifferent parameters and may not yield comparable results.If eCrCl result is absurd, please check patient'sheight/weight. Estimated Glomerular Filt Rate >60 [facility] Comment:Chronic Kidney Disea se: Estimated GFR < 60 mL/min/[id number] Kidney Disease: Estimated GFR < 15 mL/min/1.73m2 Glucose 113 60 - 115 mg/dL [facility] Calcium 9.7 8.4 - 10.2 mg/dL [facility] Bilirubin, Total 1.0 0.0 - 1.0 mg/dL [facility] Aspartate Amino Transferase 16 5 - 31 U/L [facility] Alanine Aminotransferase 19 0 - 31 U/L [facility] Total Protein 7.2 6.5 - 8.0 g/dL [facility] Albumin Level 4.2 3.5 - 5.0 g/dL [facility] Alkaline Phosphatase 86 39 - 117 U/L [facility] 04/05/2025 3:59 PM EST 04/05/2025 4:09 PM EST Generic External Data Provider LAB BLOOD ORDERAB LES Final Result Performing Organization Address [facility] Number [facility] [address] [place] [phone] * D Dimer High Sensitivity (03/20/2025 2:16 PM EST) Pathologist [facility] D Dimer High Sensitivity 288 NG/ML [facility] Comment:D-DIMER HS REFERENCE RANGENote: Our assay reports D-Dimer Units (D- DU).The cut-off value for venous thromboembolic (VTE) disease is230 ng/mL. This value has a very high negative predictivevalue when the patient has a low to moderate clinicalprobability of VTE.The upper limit of normal is 243 ng/mL. 03/20/2025 2:16 PM EST 03/20/2025 2:23 PM EST Generic External Data Provider LAB BLOOD ORDERAB LES Final Result Performing Organization Address [facility] Co de Phone Number [facility] [address] [place] [phone] * CBC auto differential (03/20/2025 2:16 PM EST) [facility] White Blood Count 7.3 4.8 - 10.8 X10*3/uL [facility] Red Blood Count 4.82 4.20 - 5.50 X10*6/uL [facility] Hemoglobin 13.0 12.0 - 16.0 g/dl [facility] Hematocrit 39.5 37.0 - 47.0 % [facility] Mean Corpuscular Volume 82.0 80.0 - 98.0 fL [facility] Mean Corpuscular Hemoglobin 27.0 27.0 - 33.0 pg [facility] Mean Corpuscular HGB Conc 32.9 31.0 - 35.0 g/dl [facility] Red Cell Distribution Width 12.4 11.0 - 16.0 % [facility] Platelet Count 321 160 - 400 X10*3/uL [facility] Mean Platelet Volume 10.6 9.4 - 12.3 fL [facility] Neutrophils Percent Auto 52.6 45 - 73 % [facility] Imm Gran Pct Auto 0.3 0.0 - 0.4 % [facility] Lymphocytes Percent Auto 38.2 20 - 40 % [facility] Monocytes Percent Auto 6.3 2 - 11 % [facility] Eosinophils Percent Auto 2.2 0 - 4 % [facility] Basophils Percent Auto 0.4 0 - 2 % [facility] NRBC Pct Auto 0.0 0.0 - 0.2 /100WBC [facility] Neutrophils Absolute Auto 3.8 2.0 - 8.3 x10*3/uL [facility] Imm Gran Abs Auto 0.02 0.00 - 0.03 X10*3/uL [facility] Lymphocytes Absolute Auto 2.8 1.2 - 4.9 X10*3/uL [facility] Monocytes Absolute Auto 0.5 0.1 - 1.2 X10*3/uL [facility] Eosinophils Absolute Auto 0.2 0.0 - 0.4 X10*3/uL [facility] Basophils Absolute Auto 0.0 0.0 - 0.2 X10*3/uL [facility] NRBC Abs Auto 0.000 0.0 - 0.012 X10*3/uL [facility] 03/20/2025 2:16 PM EST 03/20/2025 2:23 PM EST us Generic External Data Provider LAB BLOOD ORDERAB LES Final Result Performing Organization Address [facility]/ZIP Co de Phone Number [facility] [address] [place] [phone] * (ABNORMAL) Hepatic Function Panel (03/20/2025 2:16 PM EST) Bilirubin, Total 1.2(H) 0.0 - 1.0 mg/dL [facility] Bilirubin, Direct 0.4 0.0 - 0.5 mg/dL [facility] Aspartate Amino Transferase 17 5 - 31 U/L [facility] Alanine Aminotransferase 17 0 - 31 U/L [facility] Total Protein 7.5 6.5 - 8.0 g/dL [facility] Albumin Level 4.5 3.5 - 5.0 g/dL [facility] Alkaline Phosphatase 86 39 - 117 U/L [facility] 03/20/2025 2:16 PM EST 03/20/2025 2:23 PM EST us Generic External Data Provider LAB BLOOD ORDERAB LES Final Result Performing Organization Address [facility] Co de Phone Number [facility] [address] [place] [phone] * (ABNORMAL) Basic Metabolic Panel (03/20/2025 2:16 PM EST) Sodium 137 135 - 145 mmol/L [facility] Potassium 4.2 3.3 - 5.1 mmol/L [facility] Chloride 103 96 - 108 mmol/L [facility] Carbon Dioxide 27 22 - 29 mmol/L [facility] Anion Gap 11(L) 12 - 20 [facility] Urea Nitrogen (BUN) 11 9 - 16 mg/dL [facility] Creatinine, Serum 0.53 0.5 - 1.4 mg/dL [facility] Creatinine Clr Calc Pharmacy 104.5 [facility] Comment:Provided height and weight: 157.48 cm,67.9 kg.eGFR (calculated from the MDRD study equation) and eCrCl(calculated from the Cockcroft-Gault equation) are based ondifferent parameters and may not yield comparable results.If eCrCl result is absurd, please check patient'sheight/weight. Estimated Glomerular Filt Rate >60 [facility] Comment:Chronic Kidney Disea se: Estimated GFR < 60 mL/min/1.29s1Smfmdh Kidney Disease: Estimated GFR < 15 mL/min/1.73m2 Glucose 290(H) 60 - 115 mg/dL [facility] Calcium 9.7 8.4 - 10.2 mg/dL [facility] 03/20/2025 2:16 PM EST 03/20/2025 2:23 PM EST us Generic External Data Provider LAB BLOOD ORDERAB LES Final Result [facility] [address] [place] [phone] * (ABNORMAL) Urinalysis, Complete, with Reflex to Culture (03/20/2025 2:08 PM EST) Color Urine Yellow [facility] Appearance Urine Clear [facility] PH 5.5 5.0 - 9.0 [facility] Glucose Urine UA >=1000(A) Negative mg/dL [facility] Urine Blood Negative Negative [facility] Specific Hopkins - Urine >=1.030(H) 1.005 - 1.025 [facility] Urine Protein Negative Neg-Trace mg/dL [facility] Urine Ketones Negative Negative mg/dL [facility] Nitrite Urine Negative Negative [facility] Leukocyte Esterase Urine Negative Negative [facility] RBC Urine 0-2 0 - 2 /HPF [facility] Urine WBC 0-5 0 - 5 /HPF [facility] Urine Squamous Epithelial Cell 0-2 0 - 2 /HPF [facility] Urine Bacteria Trace None Seen [facility] Hyaline Casts, Urine 0-2 0 - 2 /LPF [facility] 03/20/2025 2:08 PM EST 03/20/2025 2:23 PM EST Narrative [facility] - 03/20/2025 2:44 PM EST Urine, Clean Catch us Generic External Data Provider LAB URINE ORDERAB LES Final Result Performing Organization Address City/State/[facility] Co de Phone Number [facility] [address] [place] [phone] * XR Chest 1 View (03/20/2025 1:50 PM EST) Anatomical Region Laterality Modality Chest Radiographic Radha ging 03/20/2025 1:50 PM EST Narrative 03/20/2025 2:16 PM EST [address] [address] XRay Report Signed Patient: Wendy iRvers MR#: [id number] 241 : 1965 Acct:[id number] Age/Sex: 59 / F ADM Date: 03/20/25 Loc: .ED Attending Dr: Ordering Physician: Misty Mccracken MD Date of Service: 03/20/25 Procedure(s): XR chest 1V Accession Number(s): [id number] cc: Dallas Butler MD; Misty Mccracken MD Reason for Exam: sob EXAMINATION: XR CHEST CLINICAL INFORMATION: sob; fall. COMPARISON: 07/03/2024. TECHNIQUE: Frontal view of the chest was obtained. FINDINGS: Mild prominence of the cardiac silhouette. The mediastinal and hilar contours appear normal. The lungs are clear bilaterally. No pneumothorax or effusion. No focal osseous or soft tissue abnormality. There are old healed bilateral rib fractures. XR/XR chest 1V IMPRESSION: No active pulmonary disease. Electronically signed by: Amish Chicas MD 03/20/2025 02:12 PM EST Dictated By: Amish Chicas MD Signed By: <Electronically signed by Amish Chicas MD in OV> 03/20/25 1412 DD/ 1350 TD/TT: 03/20/25 140 Obstetrics Teacher: Procedure Note Lorater, Image - 03/20/2025 [place] [address] XRay Report Signed Patient: Wendy RiversMR#: [id number] 241 : 1965Acct:[id number] Age/Sex: 59 / FADM Date: 03/20/25 Loc: HO.ED Attending Dr: Ordering Physician: Misty Mccracken MD Date of Service: 03/20/25 Procedure(s): XR chest 1V Accession Number(s): [id number] cc: Dallas Butler MD; Misty Mccracken MD Reason for Exam: sob EXAMINATION: XR CHEST CLINICAL INFORMATION: sob; fall. COMPARISON: 07/03/2024. TECHNIQUE: Frontal view of the chest was obtained. FINDINGS: Mild prominence of the cardiac silhouette. The mediastinal and hilar contours appear normal. The lungs are clear bilaterally. No pneumothorax or effusion. No focal osseous or soft tissue abnormality. There are old healed bilateral rib fractures. XR/XR chest 1V IMPRESSION: No active pulmonary disease. Electronically signed by: Amish Chicas MD 03/20/2025 02:12 PM EST Dictated By: Amish Chicas MD Signed By: <Electronically signed by Amish Chicas MD in OV> 03/20/25 1412 DD/ 1350 TD/TT: 03/20/25 1404 Obstetrics Teacher: [facility] External Provider IMG XR PROCEDURES Final Result * XR Fingers 2+ Views Left (03/20/2025 1:50 PM EST) Anatomical Region Laterality Modality Upper Extremities, Fingers Left Radio graphic Imaging 03/20/2025 1:50 PM EST Narrative 03/20/2025 2:12 PM EST [address] [address] XRay Report Signed Patient: Wendy Rivers MR#: [id number] 241 : 1965 Acct:[id number] Age/Sex: 59 / F ADM Date: 03/20/25 Loc: HO.ED Attending Dr: Ordering Physician: Misty Mccracken MD Date of Service: 03/20/25 Procedure(s): XR finger LT min 2V Accession Number(s): [id number] cc: Dallas Butler MD; Misty Mccracken MD Reason for Exam: left thumb pain EXAMINATION: XR FINGERS LEFT HISTORY: left thumb pain COMPARISON: Comparison is made with the prior examination of the left hand 05/10/2021. FINDINGS: Three views of the left thumb are submitted. Osseous mineralization is normal. There is no fracture or dislocation. There is moderate osteoarthritis of the 1st carpometacarpal joint, with joint space narrowing and osteophyte formation. The remaining joint spaces are maintained. There are vascular calcifications. XR/XR finger LT min 2V IMPRESSION: Moderate osteoarthritis of the 1st carpometacarpal joint. Electronically signed by: Trace Ching MD 03/20/2025 02:09 PM [facility] Dictated By: Trace Ching MD Signed By: <Electronically signed by Trace Ching MD in OV> 03/20/25 1409 DD/ 1350 TD/TT: 03/20/25 1404 Obstetrics Teacher: Procedure Note Donotuseinterpreter, Image - 03/20/[address] [address] XRay Report Signed Patient: Wendy RiversMR#: [id number] 241 : 1965Acct:[id number] Age/Sex: 59 / FADM Date: 03/20/25 Loc: HO.ED Attending Dr: Ordering Physician: Misty Mccracken MD Date of Service: 03/20/25 Procedure(s): XR finger LT min 2V Accession Number(s): [id number] cc: Dallas Butler MD; Misty Mccracken MD Reason for Exam: left thumb pain EXAMINATION: XR FINGERS LEFT HISTORY: left thumb pain COMPARISON: Comparison is made with the prior examination of the left hand 05/10/2021. FINDINGS: Three views of the left thumb are submitted. Osseous mineralization is normal. There is no fracture or dislocation. There is moderate osteoarthritis of the 1st carpometacarpal joint, with joint space narrowing and osteophyte formation. The remaining joint spaces are maintained. There are vascular calcifications. XR/XR finger LT min 2V IMPRESSION: Moderate osteoarthritis of the 1st carpometacarpal joint. Electronically signed by: Trace Ching MD 03/20/2025 02:09 PM EST RP Dictated By: Trace Ching MD Signed By: <Electronically signed by Trace Ching MD in OV> 03/20/25 1409 DD/ 1350 TD/TT: 03/20/25 1404 Obstetrics Teacher: [facility] External Provider IMG XR PROCEDURES Final Result * XR Knee 3 Views Right (03/20/2025 1:50 PM EST) Anatomical Region Laterality Modality Lower Extremities, Knee Right Radiogra phic Imaging 03/20/2025 1:50 PM EST Narrative 03/20/2025 2:12 PM EST [place] [address] XRay Report Signed Patient: Wendy Rivers MR#: [id number] 241 : 1965 Acct:[id number] Age/Sex: 59 / F ADM Date: 03/20/25 Loc: HO.ED Attending Dr: Ordering Physician: Misty Mccracken MD Date of Service: 03/20/25 Procedure(s): XR knee RT 3V Accession Number(s): [id number] cc: Dallas Butler MD; Misty Mccracken MD Reason for Exam: fall EXAMINATION: XR KNEE, RIGHT CLINICAL INFORMATION: fall COMPARISON: X-ray 10/02/2023 TECHNIQUE: Four views of the right knee. FINDINGS: Alignment is anatomic. No visible acute fracture, dislocation or suspicious bony lesion. Joint spaces are maintained. No significant effusion. No abnormal soft tissue calcification. XR/XR knee RT 3V IMPRESSION: No radiographic evidence of acute osseous findings Electronically signed by: Jeff Dobbs MD 03/20/2025 02:09 PM EST RP Dictated By: Jeff Dobbs MD Signed By: <Electronically signed by Jeff Dobbs MD in OV> 03/20/25 1409 DD/ 1350 TD/TT: 03/20/25 1404 Obstetrics Teacher: GEORGI Procedure Note Donotuseinterpreter, Image - 03/20/2025 [place] [address] XRay Report Signed Patient: Wendy RiversMR#: [id number] 241 : 1965Acct:[id number] Age/Sex: 59 / FADM Date: 03/20/25 Loc: .ED Attending Dr: Ordering Physician: Misty Mccracken MD Date of Service: 03/20/25 Procedure(s): XR knee RT 3V Accession Number(s): [id number] cc: Dallas Butler MD; Misty Mccracken MD Reason for Exam: fall EXAMINATION: XR KNEE, RIGHT CLINICAL INFORMATION: fall COMPARISON: X-ray 10/02/2023 TECHNIQUE: Four views of the right knee. FINDINGS: Alignment is anatomic. No visible acute fracture, dislocation or suspicious bony lesion. Joint spaces are maintained. No significant effusion. No abnormal soft tissue calcification. XR/XR knee RT 3V IMPRESSION: No radiographic evidence of acute osseous findings Electronically signed by: Jeff Dobbs MD 03/20/2025 02:09 PM EST RP Dictated By: Jeff Dobbs MD Signed By: <Electronically signed by Jeff Dobbs MD in OV> 03/20/25 1409 DD/ 1350 TD/TT: 03/20/25 1404 Obstetrics Teacher: GEORGI [facility] External Provider IMG XR PROCEDURES Final Result * XR Shoulder 2+ Views Right (03/20/2025 1:50 PM EST) Anatomical Region Laterality Modality Upper Extremities, Shoulder Right Radi ographic Imaging 03/20/2025 1:50 PM EST Narrative 03/20/2025 2:14 PM EST [address] [address] XRay Report Signed Patient: Wendy Rivers MR#: [id number] 241 : 1965 Acct:[id number] Age/Sex: 59 / F ADM Date: 03/20/25 Loc: HO.ED Attending Dr: Ordering Physician: Misty Mccracken MD Date of Service: 03/20/25 Procedure(s): XR shoulder RT min 2V Accession Number(s): [id number] cc: Dallas Butler MD; Misty Mccracken MD Reason for Exam: fall EXAMINATION: XR SHOULDER, RIGHT CLINICAL INFORMATION: fall COMPARISON: X-ray 03/18/2024 TECHNIQUE: Two views of the right shoulder. FINDINGS: Bone mineralization is decreased. No visible acute fracture or dislocation. No suspicious bony lesion. Glenohumeral and acromioclavicular articulation is maintained. No abnormal soft tissue calcification. Visualized clavicle is intact. No suspicious findings in the visualized right lung. XR/XR shoulder RT min 2V IMPRESSION: No radiographic evidence of acute osseous findings. Electronically signed by: Jeff Dobbs MD 03/20/2025 02:11 PM EST Dictated By: Jeff Dobbs MD Signed By: <Electronically signed by Jeff Dobbs MD in OV> 03/20/25 1411 DD/ 1350 TD/TT: 03/20/25 1404 Obstetrics Teacher: GEORGI Procedure Note Donotuseinterpreter, Image - 03/20/[address] [place] [address] XRay Report Signed Patient: Wendy RiversMR#: [id number] 241 : 1965Acct:[id number] Age/Sex: 59 / FADM Date: 03/20/25 Loc: HO.ED Attending Dr: Ordering Physician: Misty Mccracken MD Date of Service: 03/20/25 Procedure(s): XR shoulder RT min 2V Accession Number(s): [id number] cc: Dallas Butler MD; Misty Mccracken MD Reason for Exam: fall EXAMINATION: XR SHOULDER, RIGHT CLINICAL INFORMATION: fall COMPARISON: X-ray 03/18/2024 TECHNIQUE: Two views of the right shoulder. FINDINGS: Bone mineralization is decreased. No visible acute fracture or dislocation. No suspicious bony lesion. Glenohumeral and acromioclavicular articulation is maintained. No abnormal soft tissue calcification. Visualized clavicle is intact. No suspicious findings in the visualized right lung. XR/XR shoulder RT min 2V IMPRESSION: No radiographic evidence of acute osseous findings. Electronically signed by: Jeff Dobbs MD 03/20/2025 02:11 PM [facility] Dictated By: Jeff Dobbs MD Signed By: <Electronically signed by Jeff Dobbs MD in OV> 03/20/25 1411 DD/ 1350 TD/TT: 03/20/25 1404 Obstetrics Teacher: GEORGI [facility] External Provider IMG XR PROCEDURES Final Result * POCT Urinalysis (02/03/2025 3:43 PM EDT) Color, UA Yellow Clarity, UA Clear Glucose, UA Negative Bilirubin, UA Negative Ketones, UA Negative Spec Grav, UA 1.025 Blood, UA Negative Negative, None Detected pH, UA 5.5 Protein, UA Trace Urobilinogen, UA 0.2 Leukocytes, UA Trace Negative, Rare, Trace Comment:small Nitrite, UA Negative Negative, None Detected QC Media Lot # [id number] Lot# Expiration Date [id number] Urine 02/03/2025 3:43 PM EDT us Dallas Romero MD POINT OF CARE TEST EN TER/EDIT ORDERABLES Final Result * Culture, Urine, Routine (02/03/2025 2:37 PM EDT) Urine Urine specimen obtained by clean catch procedure / Unknown 02/03/2025 2:37 PM EDT 02/03/2025 5:20 PM EDT Comment:UACC Narrative [facility] - 02/05/2025 10:10 AM EDT Urine Culture No growth. Specimen Source: Urine clean catch us Dallas Romero MD LAB MICROBIOLOGY - [facility] ORDERABLES Final Result [facility] [address] [place] [phone] * (ABNORMAL) POCT Hgb A1c (02/03/2025 1:51 PM EDT) Hemoglobin A1C 10.4(A) 4.0 - 5.7 % QC Media Lot # [id number] Lot# Expiration Date [id number] Blood 02/03/2025 1:51 PM EDT us Dallas Romero MD POINT OF CARE TEST EN TER/EDIT ORDERABLES Final Result * (ABNORMAL) POCT Glucose (02/03/2025 1:50 PM EDT) Glucose Blood, POC 213(A) 60 - 200 mg/dL QC Media Lot # [id number] Lot# Expiration Date [id number] Blood Capillary blood specimen / Unknown 02/03/2025 1:50 PM EDT us Dallas Romero MD POINT OF CARE TEST EN TER/EDIT ORDERABLES Final Result * Albumin, Random Urine W/Creatinine (08/27/2024 9:42 AM EDT) Creatinine, Urine 44.88 mg/dL [facility] Microalbumin Urine 12.0 mg/L H [facility] Microalbum Creatinine Ratio Ur 26.7 <30 ug/mg cr [facility] Comment:Albumin/Creatinine R atio Reference Ranges: Normal: < 30 ug/mg creatinine Microalbuminuria: 30 - 300 ug/mg creatinineClinical Albuminuria: > 300 ug/mg creatinine Urine (Urine, Random) 08/27/2024 9:42 AM EDT 08/27/2024 11:09 AM EDT us Dallas Romero MD LAB URINE ORDERABLES Final Result Performing Organization Address City/State/[facility] Co de Phone Number [facility] [address] [place] [phone] * BI Mammogram Screening Tomosynthesis Bilateral (03/01/2023 12:51 PM EDT) Anatomical Region Laterality Modality Breast Bilateral Mammography 03/01/2023 12:5 1 PM EDT Narrative 03/15/2023 9:27 AM EDT [facility]'s [address] [place] [address] Mammography Report Signed Patient: Wendy Rivers MR#: [id number] 241 : 1965 Acct:[id number] Age/Sex: 57 / F ADM Date: 03/01/23 Loc: C[place] Attending Dr: Dallas Butler MD Ordering Physician: Dallas Butler MD Resu lts: 1Negative Date of Service: 03/01/23 Follow Up: 1 Year From Orig inal Mammogram Procedure(s): MM tomosynthesis screening BI Accession Number(s): [id number] cc: Dallas Butler MD EXAMINATION: MM SCREENING [...] in OV> 03/15/23 0923 DD/ 1251 TD/TT: Obstetrics Teacher: Procedure Note Donotuseinterpreter, Image - 03/20/20[facility] [address] [place] [address] Mammography Report Signed Patient: Wendy Rivers#: [id number] 241 : 1965Acct:[id number] Age/Sex: 57 / FADM Date: 03/01/23 Loc: DEYANIRAO Attending Dr: Dallas Butler MD Ordering Physician: Dallas Butler MDResu lts: 1Negative Date of Service: 03/01/23Follow Up: 1 Year From Orig inal Mammogram Procedure(s): MM tomosynthesis screening BI Accession Number(s): [id number] cc: Dallas Butler MD EXAMINATION: MM SCREENING [...] in OV> 03/15/23 0923 DD/ 1251 TD/TT: Obstetrics Teacher: us Dallas Romero MD IMG BI PROCEDURES Mykel andrés Result - Final * (ABNORMAL) Lipid Panel with Reflex to Direct LDL (06/01/2022 9:27 AM EST) Cholesterol, Total 90 <200 mg/dL [facility] [place] [facility] HDL Cholesterol 35(L) > OR = 50 mg/dL [facility] [place] [facility] Triglycerides 113 <150 mg/dL [facility] [place] [facility] LDL Cholesterol 35 mg/dL (calc) [facility] [place] [facility] Comment: Reference range: <100 Desirable range <100 mg/dL for primary prevention; <70 mg/dL for patients with CHD or diabetic patients with > or = 2 CHD risk factors. LDL-C is now calculated using the Mary Ann calculation, which is a validated novel method providing better accuracy than the Friedewald equation in the estimation of LDL-C. Cam MAXWELL et al. RONNIE. 2013;310(19): 3658-9481 (http://education.[facility].[employer]/faq/BLZ827) Chol/HDLC Ratio 2.6 <5.0 (calc) [facility] [place] [facility] Non-HDL Cholesterol 55 <130 mg/dL (calc) [facility] [place] [facility] Comment: For patients with diabetes plus 1 [...] Romero MD LAB BLOOD ORDERABLES Final Result [address], [place] [address] [facility] [place] [facility] [address] [place] [address], (Nl2) [place] [address] * THINPREP PAP (12/29/2020 9:22 AM EDT) [...] along with historic and current clinical information. Orange Picking Supervisor : SEE COMMENT [facility] Comment: KF, CT(ASCP) CT screening location: [address] [address] Interpretation/R esult: Negative for intraepithelial lesion or malignancy. [facility] LMP: NONE [facility] Prev. BX: NONE [facility] Prev. PAP: NONE [facility] SOURCE: None given [facility] Statement Of Adequacy: SEE COMMENT [facility] Comment: Satisfactory for evaluation. Endocervical/transformation zone component absent. Age and/or menstrual status not provided 12/29/2020 9:22 AM EDT Nancy [facility] LAB PATHOLOGY ORDERABLES Final Result Performing Organization Address [facility] de Phone Number [facility] [address] * HPV mRNA E6/E7 (12/29/2020 9:22 AM EDT) HPV nRNA E6/E7 Not Detected Not Detected [facility] Comment: Methodology: First Beater-Mediated Amplification This assay detects E6/E7 viral messenger RNA (mRNA) from 14 high-risk HPV types (16,18,31,33,35,39,45,51,52,56,58,59,66,68). The analytical performance characteristics of this assay have been determined by [facility]. The modifications have not been cleared or approved by the FDA. This assay has been validated pursuant to the CLIA regulations and is used for clinical purposes. For additional information, please refer to http://education.[employer]/faq/XAN411d1 (This link if provided for information/ educational purposes only.) 12/29/2020 9:22 AM EDT Nancy [facility] LAB BLOOD ORDERABLES Daniela l Result Performing Organization Address [facility] de Phone Number [facility] [address] from Last 3 Months or Most Recently Relevant to Health Maintenance Additional Health Concerns Active Problems Noted Date [...] 03/26/2025 Patient has chronic kidney disease 03/26/2025 Insurance [facility] C3 Care Teams Modeling Agent Relationship Specialty Start Date End Date Dallas Menard MD [address] [place] [address] PCP - General Internal Medicine 08/11/15 Cristy Alston RN [address] [place] [phone] Registered Nurse Family Medicine 03/23/25 Jeanne Perez 03/23/25 [facility] 08/15/24
--- OUTSIDE RECORDS SUMMARY | 2025-04-05 19:32 | XMS_ITS | Encounter Summary ---
Author Organization [employer] Address [address] [facility] 7t [place] [address] Care Team Providers Care Independent Crop Consultant Name Role Phone Dallas Menard MD Primary Care Provide r Cristy Alston RN Unavailable [phone] Jeanne Perez Unavailable Reason for Visit * Reason Comments Med Refill Encounter Details Date Type Department Care Team (Late st Contact Info) Description 01/17/2025 Refill [facility] [address] [place], [place] [phone] Dallas Menard MD [address] [place], [place] [phone] Mild intermittent asthma without complication Social History [...] the past 12 months, has t he [employer], gas, oil or water Mix[employer] threatened to shut off services in your [...] Description 06/09/2025 9:15 AM EST Office Visit [facility] [address] [place] [address] Dallas Menard MD [address] [place] [address] documented as of this encounter Visit Diagnoses Diagnosis Mild intermittent asthma without complication documented in this encounter Additional Health Concerns Assessment Noted Time PHQ-9 Depression Total Score: 13 025 8:43 AM EDT documented as of this encounter Care Teams Independent Crop Consultant Relationship Specialty Start Date End Date Dallas Menard MD [address] [place] [address] PCP - General Internal Medicine 08/11/15 Cristy Alston RN [address] [place] [address] Registered Nurse Family Medicine 03/23/25 Jeanne Perez 03/23/25 [facility] documented as of this encounter
--- OUTSIDE RECORDS SUMMARY | 2025-04-05 19:32 | XMS_ITS | Encounter Summary ---
Author Organization [employer] Address [address] [facility] 7t [place] [address] Care Team Providers Care Sheriffs Detective Name Role Phone Dallas Menard MD Primary Care Provide r Cristy Alston RN Unavailable [phone] Jeanne Perez Unavailable Reason for Visit * Reason Comments Med Refill Encounter Details Date Type Department Care Team (Late st Contact Info) Description 08/10/2023 Refill [facility] MEDICINE [address] [place], [place] [phone] Dallas Menard MD [address] [place], [place] [phone] Chronic abdominal pain Social History Tobacco Use Types Packs/Day Years Used Date Smoking Tobacco: Never Passive Smoke Exposure: Never Smokeless Tobacco: Never Alcohol Use Standard Drinks/Week Comments Not Currently 0 (1 standard drink = 0.6 oz pur e alcohol) Depression Answer Date Recorded Patient Health Questionnaire-9 Score 07/19/2023 Patient Health Questionnaire-9 Score 07/19/2023 Last PHQ-9: Questionnaire Data Not on [...] the past 12 months, has t he [employer], gas, oil or water company threatened to [...] Description 06/09/2025 9:15 AM EST Office Visit [facility] MEDICINE [address] [place] [address] Dallas Menard MD [address] [place] [address] documented as of this encounter Visit Diagnoses Diagnosis Chronic abdominal pain Abdominal pain, unspecified site documented in this encounter Additional Health Concerns Assessment Noted Time PHQ-9 Depression Total Score: 23 024 9:40 AM EST documented as of this encounter Care Teams Sheriffs Detective Relationship Specialty Start Date End Date Dallas Menard MD [address] [place] [address] PCP - General Internal Medicine 08/11/15 Cristy Alston, RHONDA [address] [place] [address] Registered Nurse Family Medicine 03/23/25 Jeanne Perez 03/23/25 [facility] 08/15/24 documented as of this encounter
--- OUTSIDE RECORDS SUMMARY | 2025-04-05 19:32 | XMS_ITS ---
Author Organization [employer] Address [address] [facility] 7t [place] [address] Care Team Providers Care Pelt Salter Name Role Phone Dallas Menard MD Primary Care Provide r Cristy Alston RN Unavailable [phone] Jeanne Perez Unavailable [facility] Complex Status:Outreach In Progress (Enrolling) Start date:03/23/2025 Enrollment reason:ADT Feed Overview [facility] 03/20/25. Please outreach for enrollment. Case Team Name Relationship Phone Jeanne Perez(Responsible Staff) [phone] Continued Care and Services Coordination
--- OUTSIDE RECORDS SUMMARY | 2025-04-05 19:32 | XMS_ITS | Encounter Summary ---
Author Organization [employer] Address [address] [facility] 7 [place] [address] Care Team Providers Care Matrix Bath Attendant Name Role Phone Dallas Menard MD Primary Care Provide r Cristy Alston RN Unavailable [phone] Jeanne Perez Unavailable Reason for Visit * Reason Onset Date Comments Appointment Request 07/31/2022 Encounter Details Date Type Department Care Team (Late st Contact Info) Description 07/31/2022 Telephone [facility]INE [address] [place], [place] [phone] Dallas Menard MD [address] [place], [place] [phone] Appointment Request Social History Tobacco Use Types [...] appt was wanted. Please contact pt at [phone] documented in this encounter Plan of Treatment Upcoming Encounters Date Type Department Care Team (Late st Contact Info) Description 06/09/2025 9:15 AM EST Office Visit [facility] [address] [place] [address] Dallas Menard MD [address] [place] [address] documented as of this encounter Visit Diagnoses Not on filedocumented in this encounter Additional Health Concerns Assessment Noted Time PHQ-9 Depression Total Score: 5 05/30/19 23 11:51 AM EST documented as of this encounter Care Teams Matrix Bath Attendant Relationship Specialty Start Date End Date Dallas Menard MD [address] [place] [address] PCP - General Internal Medicine 08/11/15 Cristy Alston, RHONDA [address] [place] [address] Registered Nurse Family Medicine 03/23/25 Jeanne Perez 03/23/25 [facility] 08/15/24 documented as of this encounter
--- OUTSIDE RECORDS SUMMARY | 2025-04-05 19:32 | XMS_ITS | Encounter Summary ---
Author Organization [employer] Address 75 [facility] 7t [place] [address] Care Team Providers Care Segmental Paving Supervisor Name Role Phone Dallas Menard MD Primary Care Provide r Cristy Alston RN Unavailable [phone] Jeanne Perez Unavailable Encounter Details Date Type Department Care Team (Late st Contact Info) Description 07/20/2022 Orders Only [facility] [address] [place] [address] [phone] Christie Strauss LPN Social History Tobacco Use [...] Description 06/09/2025 9:15 AM EST Office Visit [facility] 230 [place], [place] [phone] Dallas Menard MD [address] [place], [place] [phone] documented as of this encounter Visit Diagnoses Not on filedocumented in this encounter Additional Health Concerns Assessment Noted Time PHQ-9 Depression Total Score: 5 05/30/19 23 11:51 AM EST documented as of this encounter Care Teams Segmental Paving Supervisor Relationship Specialty Start Date End Date Dallas Menard MD [address] [place] [address] PCP - General Internal Medicine 08/11/15 Cristy Alston, RHONDA [address] [place] [address] Registered Nurse Family Medicine 03/23/25 Jeanne Perez 03/23/25 [facility] 08/15/24 documented as of this encounter
--- OUTSIDE RECORDS SUMMARY | 2025-04-05 19:32 | XMS_ITS | Encounter Summary ---
Author Organization [employer] Address 75 [facility] 7t [place] [address] Care Team Providers Care Igniter Assembler Name Role Phone Dallas Menard MD Primary Care Provide r Cristy Alston RN Unavailable [phone] Jeanne Perez Unavailable Reason for Visit * Reason Onset Date Comments FYI 08/14/2024 Encounter Details Date Type Department Care Team (Late st Contact Info) Description 08/14/2024 Telephone [facility] MEDICINE [address] [place], [place] [phone] Dallas Menard MD [address] [place], [place] [phone] FYI Social History Tobacco Use Types Packs/Day [...] the past 12 months, has t he [employer], gas, oil or water company threatened to [...] 08/14/2024 10:13 AM EDT Tc from [facility] calling to inform pt was unable to start services today and will be trying again tomorrow 08/15/24. documented in this encounter Plan of Treatment Upcoming Encounters Date Type Department Care Team (Late st Contact Info) Description 06/09/2025 9:15 AM EST Office Visit [facility] MEDICINE [address] [place] [phone] Dallas Menard MD [address] [place], [place] [phone] documented as of this encounter Visit Diagnoses Not on filedocumented in this encounter Additional Health Concerns Assessment Noted Time PHQ-9 Depression Total Score: 13 07/31/ 025 8:43 AM EDT documented as of this encounter Care Teams Igniter Assembler Relationship Specialty Start Date End Date Dallas Menard MD [address] [place] [address] PCP - General Internal Medicine 08/11/15 Cristy Alston RN [address] [place] [address] Registered Nurse Family Medicine 03/23/25 Jenane Perez 03/23/25 [facility] 08/15/24 documented as of this encounter
--- OUTSIDE RECORDS SUMMARY | 2025-04-05 19:32 | XMS_ITS | Encounter Summary ---
Author Organization [employer] Address 75 [facility] 7t [place] [address] Care Team Providers Care Hand Booked Folder And Stitcher Name Role Phone Dallas Menard MD Primary Care Provide r Cristy Alston RN Unavailable Jeanne Perez Unavailable Reason for Visit * Reason Onset Date Comments Med Refill 12/27/2023 Encounter Details Date Type Department Care Team (Late st Contact Info) Description 12/27/2023 Telephone [facility] MEDICINE [address] [place], [place] [phone] Dallas Menard MD [address] [place], [place] [phone] Med Refill Social History Tobacco Use Types [...] the past 12 months, has t he [employer], gas, oil or water company threatened to [...] 100 MG capsule To be sent to: [facility] [place], [place] - [address] [facility] documented in this encounter Plan of Treatment Upcoming Encounters Date Type Department Care Team ([facility] st Contact Info) Description 06/09/2025 9:15 AM EST Office Visit [facility] MED[facility]INE [address] [place] [address] Dallas Menard MD [address] [place] [address] documented as of this encounter Visit Diagnoses Not on filedocumented in this encounter Additional Health Concerns Assessment Noted Time PHQ-9 Depression Total Score: 14 024 3:35 PM EDT documented as of this encounter Care Teams Hand Booked Folder And Stitcher Relationship Specialty Start Date End Date Dallas Menard MD [address] [place] [address] PCP - General Internal Medicine 08/11/15 Cristy Alston, RHONDA [address] [place] [address] Registered Nurse Family Medicine 03/23/25 Jeanne Perez 03/23/25 [facility] 08/15/24 documented as of this encounter
--- OUTSIDE RECORDS SUMMARY | 2025-04-05 19:32 | XMS_ITS | Encounter Summary ---
Author Organization [employer] Address 75 [facility] 7t [place] [address] Care Team Providers Care Fractionating Still Operator Name Role Phone Dallas Menard MD Primary Care Provide r Cristy Alston RN Unavailable [phone] Jeanne Perez Unavailable Encounter Details Date Type Department Care Team (Late Contact Info) Description 06/19/2022 Orders Only [facility] MED [facility] P[facility]S [address] [place] [address] Jennifer Lopez LPN Social History Tobacco Use [...] Description 06/09/2025 9:15 AM EST Office Visit [facility] MEDICINE [address] [place] [address] Dallas Menard MD [address] [place] [address] documented as of this encounter Visit Diagnoses Not on filedocumented in this encounter Additional Health Concerns Assessment Noted Time PHQ-9 Depression Total Score: 5 05/30/19 23 11:51 AM EST documented as of this encounter Care Teams Fractionating Still Operator Relationship Specialty Start Date End Date Dallas Menard MD [address] [place], [place] [phone] PCP - General Internal Medicine 08/11/15 Cristy Alston, RHONDA [address] [place] [address] Registered Nurse Family Medicine 03/23/25 Jeanne Perez 03/23/25 [facility] 08/15/24 documented as of this encounter
--- OUTSIDE RECORDS SUMMARY | 2025-04-05 19:32 | XMS_ITS | Encounter Summary ---
Author Organization [employer] Address [address] [facility] 7t [place] [address] Care Team Providers Care Marionette Performer Name Role Phone Dallas Menard MD Primary Care Provide r Cristy Alston RN Unavailable [phone] Jeanne Perez Unavailable Reason for Visit * Reason Comments Med Refill Encounter Details Date Type Department Care Team (Late st Contact Info) Description 12/22/2023 Refill [facility] PEDS [address] [place], [place] [phone] Dallas Menard MD [address] [place], [place] [phone] Chronic abdominal pain Social History Tobacco Use [...] the past 12 months, has t he [employer], gas, oil or water company threatened to [...] 06/09/2025 9:15 AM EST Office Visit [facility] MEDICINE [address] [place] [phone] Dallas Menard MD [address] [place] [address] documented as of this encounter Visit Diagnoses Diagnosis Chronic abdominal pain Abdominal pain, unspecified site documented in this encounter Additional Health Concerns Assessment Noted Time PHQ-9 Depression Total Score: 14 024 3:35 PM EDT documented as of this encounter Care Teams Marionette Performer Relationship Specialty Start Date End Date Dallas Menard MD [address] [place] [address] PCP - General Internal Medicine 08/11/15 Cristy Alston, RHONDA [address] [place] [address] Registered Nurse Family Medicine 03/23/25 Jeanne Perez 03/23/25 [facility] documented as of this encounter
--- OUTSIDE RECORDS SUMMARY | 2025-04-05 19:32 | XMS_ITS | Encounter Summary ---
Author Organization [employer] Address [address] [facility] [address] [place] [address] Care Team Providers Care Haulage Engine Operator Name Role Phone Dallas Menard MD Primary Care Provide r Cristy Alston RN Unavailable Jeanne Perez Unavailable Reason for Visit * Reason Comments Med Refill Encounter Details Date Type Department Care Team (Late st Contact Info) Description 08/21/2024 Refill [facility] [address] [place], [place] [phone] Dallas Menard MD [address] [place], [place] [phone] Chronic abdominal pain Social History Tobacco Use [...] the past 12 months, has t he [employer], oil or water [employer] threatened to shut off services in your [...] Description 06/09/2025 9:15 AM EST Office Visit [facility] [address] [place] [id number] Dallas Menard MD [address] [place] [phone] documented as of this encounter Visit Diagnoses Diagnosis Chronic abdominal pain Abdominal pain, unspecified site documented in this encounter Additional Health Concerns Assessment Noted Time PHQ-9 Depression Total Score: 13 025 8:43 AM EDT documented as of this encounter Care Teams Haulage Engine Operator Relationship Specialty Start Date End Date Dallas Menard MD [address] [place] [address] PCP - General Internal Medicine 08/11/15 Cristy Alston RN [address] [place] [id number] Registered Nurse Family Medicine 03/23/25 Jeanne Perez 03/23/25 [facility] documented as of this encounter
--- OUTSIDE RECORDS SUMMARY | 2025-04-05 19:32 | XMS_ITS ---
Author Organization [employer] Address [address] [facility] [address] [place] [address] Care Team Providers Care Branch Billing Payroll Clerk Name Role Phone Dallas Menard MD Primary Care Provide r Cristy Alston RN Unavailable [phone] Jeanne Perez Unavailable CM Complex Status:Outreach In Progress (Enrolling) Start date:03/23/2025 Enrollment reason:ADT Feed Overview [facility] ED 03/20/25 Case Team Name Relationship Phone Cristy Alston RN(Responsible Staff) Registered Nurse [phone] Continued Care and Services Coordination
[2025-04-05] MEDS: Lidocaine 4 % Patch ADH..PATCH 1 PATCH TRANSDERMA (19:33)
[2025-04-05 22:15] VITALS: BP 129/72; PULSE 67; RESP 16; TEMP 36.4; O2SAT 97
[2025-04-05 22:17] VITALS: BP 129/72; PULSE 67; RESP 18; O2SAT 93
== END 2025-04-05 22:41 | disposition home or self-care (01) ==
PROVIDERS: Physician Assistant Medical; Emergency Provider Emergency Medicine; PCP Internal Medicine
DX: R07.89 Other chest pain (principal); R42 Dizziness and giddiness; R51.9 Headache, unspecified; M54.2 Cervicalgia; Z03.818 Encounter for observation for suspected exposure to other biological agents ruled out; Z79.899 Other long term (current) drug therapy; Z87.891 Personal history of nicotine dependence
CPT/HCPCS: 70450; 71046; 71250; 72125; 72131; 80053; 83735; 84484; 85610; 87637; 93005; 96372; 99284; J1885

== ENCOUNTER → 2025-04-05 14:43 | Outpatient (BNV) | payer MEDICAID, SELFPAY | PROVIDERS: PCP Internal Medicine; Visit Provider Radiology Vascular & Interventional Radiology | DX: R07.89 Other chest pain (principal); M54.2 Cervicalgia; M47.816 Spondylosis without myelopathy or radiculopathy, lumbar region; R51.9 Headache, unspecified; R07.9 Chest pain, unspecified; R42 Dizziness and giddiness; Z04.3 Encounter for examination and observation following other accident | CPT/HCPCS: 70450; 71046; 71250; 72125; 72131 ==

== ENCOUNTER → 2025-04-05 14:43 | Outpatient (BNV) | payer MEDICAID, SELFPAY | PROVIDERS: Emergency Provider Emergency Medicine; PCP Internal Medicine; Visit Provider Internal Medicine Cardiovascular Disease | DX: I49.1 Atrial premature depolarization (principal) | CPT/HCPCS: 93010 ==